=== PATIENT | male | born 1955 | race Caucasian/White ===

== ENCOUNTER 2019-05-14 12:45 | Outpatient (RCR) | payer MEDICARE, BC, SELFPAY | END 2019-05-14 12:50 | disposition home or self-care (01) | LOC: PT 12:45 | PROVIDERS: PCP Family Medicine; Referring Provider Family Medicine; Visit Provider Family Medicine | DX: S16.1XXA Strain of muscle, fascia and tendon at neck level, initial encounter (principal); M54.2 Cervicalgia | CPT/HCPCS: 97010; 97014; 97035; 97110; 97163; G0283 ==

== ENCOUNTER 2020-05-08 18:46 | Emergency (ER) | payer MEDICARE, BC, SELFPAY ==
[2020-05-08 19:07] VITALS: BP 124/65; PULSE 92; RESP 15; TEMP 36.5; O2SAT 95; BMI 47.2
--- NOTE | 2020-05-08 19:13 | HMH.EDGENADL ---
ED Disposition Clinical Impression: Right flank pain Disposition: Home, Self-Care Condition on Discharge: Good Instructions: DI for Low Back Pain Additional Instructions: Follow-up with primary care doctor, call tomorrow to arrange follow-up Referrals: Catarino Ryan [Primary Care Provider] - - Critical Care Critical Care Time: No Attestation: On , the high probability of a clinically significant, sudden or life threatening deterioration of the following system(s) required my full and direct attention, intervention and personal management. The time I documented below is in addition to time spent performing reported procedures but includes the following listed in this critical care notation. Medical Decision Making - Silvino Inquiry Pt receiving controlled substance: No Vital Signs: 05/08/20 19:07 Temperature 97.7 F Temperature Source Oral Pulse Rate [Right Brachial] 92 H Respiratory Rate 15 Blood Pressure [Right Arm] 124/65 Blood Pressure Mean [Right Arm] 84 Blood Pressure Source [Right Arm] Automatic Cuff Blood Pressure Position [Right Arm] Sitting 02 Sat by Pulse Oximetry 95 Oxygen Delivery Method Room Air - Lab Data Lab Results 05/08/20 19:15: WBC 10.9 H, RBC 5.23, Hgb 15.9, Hct 49.0, MCV 93.6, MCH 30.4, MCHC 32.5, RDW 14.5, Plt Count 235, MPV 8.2, Neut % (Auto) 66.9, Lymph % (Auto) 23.4, [place] % (Auto) 5.4, Eos % (Auto) 3.7, Baso % (Auto) 0.5, Neut # (Auto) 7.3, Lymph # (Auto) 2.6, [place] # (Auto) 0.6, Eos # (Auto) 0.4, Baso # (Auto) 0.1 05/08/20 19:15: Sodium 139, Potassium 4.8, Chloride 103, Carbon Dioxide 27, Anion Gap 13.8, BUN 31 H, Creatinine 1.20, Estimated Creat Clear 61, Estimated GFR 61, Est GFR ( Amer) 73, Glucose 203 H, Calcium 9.6, Total Bilirubin 0.6, AST 40, ALT 39, Alkaline Phosphatase 60, Total Protein 7.6, Albumin 4.6, Globulin 3.0, Albumin/Globulin Ratio 1.5, Amylase 68, Lipase 51 05/08/20 19:20: Urine Color Yellow, Urine Appearance Clear, Urine pH 5.0, Ur Specific [place] >= 1.030, Urine Protein 2+, Urine Glucose (UA) Negative, Urine Ketones Trace, Urine Blood Negative, Urine Nitrate Negative, Urine Bilirubin Negative, Urine Urobilinogen 0.2, Ur Leukocyte Esterase Negative, Urine RBC None, Urine WBC Occasional, Ur Squamous Epith Cells Occasional, Amorphous Sediment 1+, Urine Bacteria None, Urine Mucus 1+ Result diagrams: 05/08/20 19:15 05/08/20 19:15 Orders (Tests/Meds): ED MEDICATIONS Generic Name Dose Route Start Last Admin Trade Name Freq PRN Reason Stop Dose Admin Sodium Chloride 1,000 mls @ 999 mls/hr 05/08/20 19:15 05/08/20 19:41 Sod Chlor 0.9% 1000ml Bag IV 05/08/20 20:15 999 mls/hr .Q1H1M ROSALBA Administration ORDERS Category Date Time Status CT abdomen pelvis wo con Stat Cat Scan 05/08/20 19:21 Taken - CT Data CT Scan: Abdomen, Pelvis Time Received: 20:20 ([facility] fax) Findings Narrative: No acute findings in the abdomen and pelvis Medical Decision Narrative: Pain is likely musculoskeletal, discussed with patient General Adult HPI - General Chief complaint: Back Pain/Injury Stated complaint: Back Pain Time Seen by Provider: 05/08/20 19:13 Mode of Arrival: Family Vehicle Limitations: No Limitations Description of Symptoms (Recalled from ER Triage Doc. by RN): right flank pain x 2 weeks; wants to rule out kidney involvement. states has a weak stream and while this is sometimes normal, feels like its been going on too to be normal - History of Present Illness HPI narrative: Right posterior flank pain for 2 weeks. Worsened with movement. No injury recalled. States that he recently retired and has been laying in bed a lot and he wonders whether that has aggravated his back. However, he is concerned about possible kidney pain. No history of kidney stones. He has a chronic urinary hesitancy, which is unchanged. No hematuria noted. No fever. No vomiting. No abdominal pain. He is using Lidoderm patches for relief. - Related Data
--- NOTE | 2020-05-08 19:21 | CT_ITS ---
PROCEDURE: CT ABDOMEN PELVIS WO CON CLINICAL INDICATION: right flank pain Abdominal pain, right flank pain COMPARISON: CT ABDPELWO CT abdomen pelvis wo con from 05/29/2018 TECHNIQUE: Axial images obtained with sagittal and coronal reformats. All CT scans at the facility use one or more dose reduction, viz: automated exposure control, ma/kV adjustment per patient size (including targeted exams where dose is matched to indication, i.e. head), or iterative reconstruction technique. FINDINGS: LOWER THORAX: No acute finding ABDOMEN & PELVIS: The liver, spleen, adrenal glands, pancreas, and right kidney have an unremarkable appearance. There is atrophic change of the left kidney. No renal or ureteral calculi. There is some minimal stranding of the right perinephric renal fat which is nonspecific. There is a small umbilical hernia containing fat. No evidence of appendicitis, intestinal obstruction, or free air. There is colonic diverticulosis but no evidence of diverticulitis. There is a small area of dense calcification in the left lower quadrant and may be due to an area of fat necrosis. No acute bony anomaly. IMPRESSION: 1. No acute finding. 2. Atrophy of the left kidney. 3. Colonic diverticulosis without diverticulitis Dictated by: Mahesh Lake MD 05/09/2020 06:21 Mahesh Lake MD in [place] 05/09/2020 06:21
[2020-05-08 19:25] LABS: Basophils # 0.1 K/mm3 (0-0.2); Basophils % 0.5 % (0.1-2.0); Eosinophils # 0.4 K/mm3 (0.0-0.4); Eosinophils % 3.7 % (0.1-12.0); Hemoglobin 15.9 g/dL (14.1-18.0); Lymphocytes # 2.6 K/mm3 (0.7-4.5); Lymphocytes % 23.4 % (10-50); Mean Corpuscular HGB Conc 32.5 g/dL (31.8-35.4); Mean Corpuscular Hemoglobin 30.4 pg (27.0-31.2); Mean Corpuscular Volume 93.6 fl (80-94); Mean Platelet Volume 8.2 fl (7.4-10.4); Monocytes # 0.6 K/mm3 (0.1-1.0); Monocytes % 5.4 % (1.7-9.3); Neutrophils # 7.3 K/mm3 (1.8-7.8); Neutrophils % 66.9 % (37.0-80.0); Platelet Count 235 K/mm3 (142-424); Red Blood Count 5.23 M/mm3 (4.60-6.20); Red Cell Distribution Width 14.5 % (11.5-17.5); White Blood Count 10.9 K/mm3 (4.8-10.8)
[2020-05-08 19:29] LABS: Chloride 103 mmol/L (98-107); Potassium 4.8 mmoL/L (3.5-5.1); Sodium 139 mmol/L (136-145)
[2020-05-08 19:31] LABS: Amylase 68 U/L (30-110); Blood Urea Nitrogen 31 mg/dl (9-20); Creatinine Clearance Estimated 61 mL/min (50-200); Estimated Glomerular Filt Rate 61 ml/min (>60); GFR (African American) 73 ML/MIN (>60)
[2020-05-08 19:32] LABS: Alanine Aminotransferase 39 U/L (12-78); Albumin Level 4.6 g/dl (3.5-5.0); Albumin/Globulin Ratio 1.5 (1.1-1.8); Alkaline Phosphatase 60 U/L (38-126); Anion Gap 13.8 mEq/L (5-15); Aspartate Amino Transferase 40 U/L (17-59); Bilirubin,Total 0.6 mg/dl (0.2-1.3); Calcium 9.6 mg/dl (8.4-10.2); Carbon Dioxide 27 mmol/L (22.0-30.0); Glucose 203 mg/dl (74-100); Lipase 51 U/L (23-300); Total Protein,Serum 7.6 g/dl (6.3-8.2)
[2020-05-08 19:36] LABS: Microscopic, Urine URINE MICROSCOPIC (MICROSCOPIC)
[2020-05-08 19:37] LABS: Appearance,Urine CLEAR (Clear); Bilirubin,Urine Negative (Negative); Blood, Urine Negative (Negative); Color,Urine YELLOW (Yellow); Glucose,Urine (UA) Negative (Negative); Ketones,Urine TRACE (Negative); Leukocyte Esterase,Urine Negative (Negative); Nitrate,Urine Negative (Negative); Protein,Urine 2+ (Negative); Specific Gravity, Urine >= 1.030 (1.005-1.030); Urobilinogen,Urine 0.2 EU/dl (0.2)
[2020-05-08 19:43] LABS: Amorphous Sediment,Urine 1+ /lpf; Mucus,Urine 1+ /lpf; Squamous Epithelial Cell,Urine Occasional #/hpf (0-5); WBC,Urine Occasional #/hpf (0-3)
[2020-05-08 20:22] VITALS: BP 145/85; PULSE 87; RESP 16; TEMP 36.7; O2SAT 98
== END 2020-05-08 20:28 | disposition home or self-care (01) ==
PROVIDERS: Emergency Provider Emergency Medicine; PCP Family Medicine
DX: R10.11 Right upper quadrant pain (principal); R39.11 Hesitancy of micturition; E10.9 Type 1 diabetes mellitus without complications; J45.909 Unspecified asthma, uncomplicated; Z79.899 Other long term (current) drug therapy; Z88.2 Allergy status to sulfonamides; Z88.6 Allergy status to analgesic agent
CPT/HCPCS: 74176; 80053; 81001; 82150; 83690; 85025; 96365; 99283

== ENCOUNTER 2020-08-19 16:35 | Emergency (ER) | payer MEDICARE, BC, SELFPAY ==
--- NOTE | 2020-08-19 16:46 | XR_ITS ---
PROCEDURE: XR FOOT RT MIN 3V CLINICAL INDICATION: fall Pain following injury COMPARISON: CR FTR3 FOOT-RT-3 VIEWS from 01/23/2016 FINDINGS: No fracture or dislocation. No lytic or blastic change. There is normal mineralization. There are osteoarthritic changes at the navicular cuneiform and tarsal metatarsal junction. There is a small calcaneal spur. Other findings:None. IMPRESSION: No acute findings. Dictated by: Mahesh Lake MD 08/19/2020 17:18 Mahesh Lake MD in [place] 08/19/2020 17:18
--- NOTE | 2020-08-19 16:46 | XR_ITS ---
PROCEDURE: XR KNEE LT 3V CLINICAL INDICATION: fall Posttraumatic pain COMPARISON: CR KNEE3R KNEE-3 VIEWS-RT from 10/04/2013 FINDINGS: No fracture or dislocation. No lytic or blastic change. There is normal mineralization. Sage-ib-tamthnow osteoarthritic changes are present involving all 3 compartments. Other findings:Calcific density is present at the popliteal region and is more dorsal than what 1 would expect for a fabella and could be due to a loose body within a Weathers's cyst. IMPRESSION: Osteoarthritis, no acute fracture Possible loose body within a Weathers's cyst Dictated by: Mahesh Lake MD 08/19/2020 17:17 Mahesh Lake MD in [place] 08/19/2020 17:17
--- NOTE | 2020-08-19 16:48 | XR_ITS ---
PROCEDURE: XR HAND RT MIN 3V CLINICAL INDICATION: fall Posttraumatic pain COMPARISON: No exams were available for comparison FINDINGS: No fracture or dislocation. No lytic or blastic change. There is normal mineralization. The joint spaces are well-preserved. No significant degenerative/arthritic changes. No erosive changes evident. Other findings:Well-circumscribed calcific density is present at the scapho trapezium joint laterally and may represent sequela from old injury. IMPRESSION: No acute findings. Dictated by: Mahesh Lake MD 08/19/2020 17:20 Mahesh Lake MD in [place] 08/19/2020 17:20
[2020-08-19 17:15] VITALS: BP 163/86; PULSE 86; RESP 16; TEMP 36.7; O2SAT 98; BMI 53.6
--- NOTE | 2020-08-19 17:26 | HMH.EDUTC ---
[facility] [place] Disposition Clinical Impression: Fall Qualifiers: Encounter type: initial encounter Qualified Code(s): W19.XXXA - Unspecified fall, initial encounter Disposition: Home, Self-Care Condition on Discharge: Good Instructions: DI for Knee Sprain, DI for Finger Sprain, How To Perform RICE (Rest, Ice, Compress, Elevate), DI for Foot Sprain Additional Instructions: *weight bearing as tolerated *RICE, Rest the extremity, Ice 15-20 minutes 3-4 times daily, Compress- wear the thomas wrap as discussed as much as possible to help reduce swelling and pain, Elevate the extremity when at rest *Thomas wrap is for support and help control swelling, use it except in the shower. Be sure that is not to tight but not to loose either *Elevate when resting *Ibuprofen every 6-8 hours as needed for pain an inflammation. If need something more can take Tylenol in between doses of Ibuprofen to help Immediately follow up with your family doctor for new or worsening of symptoms, or no noticeable improvement over the next 3-5 days Follow up with your Family Doctor if no improvement or any worsening of symptoms Referrals: Catarino Ryan [Primary Care Provider] - As needed Time of Disposition: 17:39 Medical Decision Making - Silvino Inquiry Pt receiving controlled substance: No Silvino was queried for this patient: No Vital Signs: 08/19/20 17:15 08/19/20 17:46 Temperature 98.1 F 98 F Temperature Source Oral Pulse Rate 81 Pulse Rate [Right] 86 Respiratory Rate 16 16 Blood Pressure 159/83 H Blood Pressure [Right Arm] 163/86 H Blood Pressure Mean [Right Arm] 111 Blood Pressure Source [Right Arm] Automatic Cuff Blood Pressure Position Sitting Blood Pressure Position [Right Arm] Sitting 02 Sat by Pulse Oximetry 98 Oxygen Delivery Method Nasal Cannula Oxygen Flow Rate (LPM) 2 - Radiology Data #1 Image(s): Knee Image Reviewed: Yes I have reviewed radiologist's interpretation IMPRESSION: Osteoarthritis, no acute fracture #2 Image(s): Foot/Toes Image Reviewed: Yes I have reviewed radiologist's interpretation No acute findings. #3 Image(s): Hand Image Reviewed: Yes I have reviewed radiologist's interpretation No acute findings. [facility] [place] HPI - General Stated complaint: AO [id number] fell injured L Knee,R Hand,foot Time Seen by Provider: 08/19/20 17:26 Mode of Arrival: Ambulatory Source of Information: Patient Limitations: No Limitations Description of Symptoms (Recalled from Triage Doc. by RN): pt was sitting up on bedside and fell asleep. he has injured his R knee, R hand, and L foot. HEENT Symptoms (Recalled from RN notes): No Resp Symptoms (Recalled from RN notes): No Skin Symptoms (Recalled from RN notes): No MS Symptoms (Recalled from RN notes): Yes (R KNEE AND R HAND PAIN. L FOOT PAIN.) Functional Status (Recalled from RN notes): NA - History of Present Illness Provider Complaint: Patient states that he got up and went to the bathroom around 7am this morning and come back and sit on the edge of the bed States that he fell back to sleep and fell off the side of the bed and landed on his left knee and right foot and right hand State that ever since he has been having pain and bruising to the left knee and wanted to get it checked - Related Data Home Medications Medication Instructions Recorded Confirmed Fluoxetine HCl [Prozac 20mg 60 mg PO DAILY 04/29/19 06/05/19 Capsule] Gabapentin 600 mg PO TID 04/29/19 06/05/19 Insulin Aspart [Novolog] 20 unit SQ TID 04/29/19 06/05/19 Insulin Detemir [Levemir 100 20 unit SQ DAILY 04/29/19 06/05/19 units/mL 10mL vial] Losartan Potassium [Cozaar 100mg 100 mg PO DAILY 04/29/19 06/05/19 Tablets] diphenhydrAMINE HCL [Benadryl 25mg 25 mg PO HS 04/29/19 06/05/19 Capsule] Allergies Allergy/AdvReac Type Severity Reaction Status Date / Time aspirin [ASPIRIN] Allergy Intermediate I-HIVES Verified 08/19/20 16:50 NSAIDS (Non-Steroidal Allergy Intermediate
[2020-08-19 17:46] VITALS: BP 159/83; PULSE 81; RESP 16; TEMP 36.6
== END 2020-08-19 17:46 | disposition home or self-care (01) ==
PROVIDERS: Emergency Provider Nurse Practitioner; PCP Family Medicine
DX: S80.02XA Contusion of left knee, initial encounter (principal); S60.221A Contusion of right hand, initial encounter; S90.31XA Contusion of right foot, initial encounter; W06.XXXA Fall from bed, initial encounter; Y92.013 Bedroom of single-family (private) house as the place of occurrence of the external cause; E10.9 Type 1 diabetes mellitus without complications; I10 Essential (primary) hypertension; J45.909 Unspecified asthma, uncomplicated; Z79.899 Other long term (current) drug therapy; Z79.4 Long term (current) use of insulin; Z88.2 Allergy status to sulfonamides; Z88.6 Allergy status to analgesic agent
CPT/HCPCS: 73130; 73562; 73630; 99202; G0463

== ENCOUNTER 2020-09-05 14:00 | Outpatient (RCR) | payer MEDICARE, BC, SELFPAY | END 2020-09-05 14:05 | disposition home or self-care (01) | LOC: PT 14:00 | PROVIDERS: PCP Family Medicine; Visit Provider Family Medicine | DX: M54.5 Low back pain (principal) | CPT/HCPCS: 97014; 97110; 97140; 97163; G0283 ==

== ENCOUNTER 2020-09-24 11:28 | Emergency (ER) | payer MEDICARE, BC, SELFPAY ==
[2020-09-24 11:30] VITALS: BP 137/66; PULSE 90; RESP 18; TEMP 36.8; O2SAT 96; BMI 52.0
--- NOTE | 2020-09-24 11:36 | XR_ITS ---
PROCEDURE: XR SHOULDER LT MIN 2V CLINICAL INDICATION: PAIN COMPARISON: CR SHOU3R QSB-[id number]-SE-UNI-3 VIEWS from 08/24/2015 FINDINGS: No fracture or dislocation. No lytic or blastic change. There is normal mineralization. There are mild osteoarthritic changes of the acromioclavicular and glenohumeral joint Other findings:No significant subacromial stenosis. IMPRESSION: Mild osteoarthritis Dictated by: Mahesh Lake MD 09/24/2020 12:20 Mahesh Lake MD in [place] 09/24/2020 12:20
--- NOTE | 2020-09-24 12:00 | HMH.EDUTC ---
[facility] [place] Disposition Clinical Impression: Left shoulder strain Qualifiers: Encounter type: initial encounter Qualified Code(s): S46.912A - Strain of unspecified muscle, fascia and tendon at shoulder and upper arm level, left arm, initial encounter Disposition: Home, Self-Care Condition on Discharge: Good Instructions: DI for Shoulder Pain Additional Instructions: Do not lift anything heavy with arm *RICE, Rest the extremity, Ice 15-20 minutes 3-4 times daily, Compress- wear the huseyin wrap as discussed as much as possible to help reduce swelling and pain, Elevate the extremity when at rest *Elevate when resting Sling as advised in the [facility] *Ibuprofen every 6-8 hours as needed for pain an inflammation if you can take them if you are allergic or have been told by your Family Doctor not to take them you can take Tylenol or use over the counter patches or muscle rubs Immediately follow up with your family doctor for new or worsening of symptoms, or no noticeable improvement over the next 3-5 days Follow up with Orthopedics if needed Straight to ER if any life threatening symptoms Referrals: Catarino Ryan [Primary Care Provider] - As needed (Keep appointment as scheduled) Rashaun Martinez MD [Staff Physician] - As needed Time of Disposition: 12:23 Medical Decision Making - Silvino Inquiry Pt receiving controlled substance: No Silvino was queried for this patient: No Vital Signs: 09/24/20 11:30 Temperature 98.2 F Temperature Source Oral Pulse Rate [Right Brachial] 90 Respiratory Rate 18 Blood Pressure [Right Arm] 137/66 Blood Pressure Mean [Right Arm] 89 Blood Pressure Source [Right Arm] Automatic Cuff Blood Pressure Position [Right Arm] Sitting 02 Sat by Pulse Oximetry 96 Oxygen Delivery Method Room Air Orders (Tests/Meds): ORDERS Category Date Time Status XR shoulder LT min 2V Stat Exams 09/24/20 11:36 Taken - Radiology Data #1 Image(s): Shoulder Image Reviewed: Yes I reviewed the patient's radiology image Preliminary Findings: No Fracture Seen [facility] [place] HPI - General Stated complaint: AO [id number] Time Seen by Provider: 09/24/20 12:00 Mode of Arrival: Ambulatory Source of Information: Patient Limitations: No Limitations Description of Symptoms (Recalled from Triage Doc. by RN): INJURY TO LEFT SHOULDER. STATES HE WENT TO PULL BLANKETS UP AND PULLED SOMETHING IN HIS LEFT SHOULDER HEENT Symptoms (Recalled from RN notes): No Resp Symptoms (Recalled from RN notes): No Skin Symptoms (Recalled from RN notes): No MS Symptoms (Recalled from RN notes): Yes Functional Status (Recalled from RN notes): WNL - History of Present Illness Provider Complaint: Patient state that last night he was reaching back to pull covers down over him when he felt something pull in his left shoulder area States that ever since he has been having pain in his left shoulder when he tries to raise it so he came in to get it checked - Related Data Home Medications Medication Instructions Recorded Confirmed Fluoxetine HCl [Prozac 20mg 60 mg PO DAILY 04/29/19 06/05/19 Capsule] Gabapentin 600 mg PO TID 04/29/19 06/05/19 Insulin Aspart [Novolog] 20 unit SQ TID 04/29/19 06/05/19 Insulin Detemir [Levemir 100 20 unit SQ DAILY 04/29/19 06/05/19 units/mL 10mL vial] Losartan Potassium [Cozaar 100mg 100 mg PO DAILY 04/29/19 06/05/19 Tablets] diphenhydrAMINE HCL [Benadryl 25mg 25 mg PO HS 04/29/19 06/05/19 Capsule] Allergies Allergy/AdvReac Type Severity Reaction Status Date / Time aspirin [ASPIRIN] Allergy Intermediate I-HIVES Verified 08/19/20 16:50 NSAIDS (Non-Steroidal Allergy Intermediate I-RASH Verified 08/19/20 16:50 Anti-Inflamma [NSAIDS (NON-STEROIDAL ANTI-INFLAMMA] Sulfa (Sulfonamide Allergy Intermediate I-RASH Verified 08/19/20 16:50 Antibiotics) [SULFA (SULFONAMIDE ANTIBIOTICS)] - Worker's Comp Is this a Worker's Comp case?: No [facility] History - Hepatitis A Screen Drug
[2020-09-24 12:38] VITALS: BP 137/66; PULSE 90; RESP 18; TEMP 36.8; O2SAT 96
== END 2020-09-24 12:40 | disposition home or self-care (01) ==
PROVIDERS: Emergency Provider Nurse Practitioner; PCP Family Medicine
DX: S46.912A Strain of unspecified muscle, fascia and tendon at shoulder and upper arm level, left arm, initial encounter (principal); X50.9XXA Other and unspecified overexertion or strenuous movements or postures, initial encounter; Y92.013 Bedroom of single-family (private) house as the place of occurrence of the external cause; J45.909 Unspecified asthma, uncomplicated; E10.9 Type 1 diabetes mellitus without complications; Z79.4 Long term (current) use of insulin; Z88.2 Allergy status to sulfonamides; Z79.899 Other long term (current) drug therapy
CPT/HCPCS: G0463; 73030; 99202

== ENCOUNTER 2021-01-21 16:00 | Outpatient (RCR) | payer MEDICARE, BC, SELFPAY | END 2021-01-21 16:05 | disposition home or self-care (01) | LOC: PT 16:00 | PROVIDERS: PCP Family Medicine; Visit Provider Orthopaedic Surgery | DX: M75.122 Complete rotator cuff tear or rupture of left shoulder, not specified as traumatic (principal) | CPT/HCPCS: 97010; 97014; 97110; 97140; 97163; 97164; G0283 ==

== ENCOUNTER 2021-01-30 15:55 | Emergency (ER) | payer MEDICARE, BC, SELFPAY ==
[2021-01-30 16:00] VITALS: BP 146/84; PULSE 87; RESP 24; TEMP 36.9; O2SAT 98; BMI 54.5
--- NOTE | 2021-01-30 16:22 | HMH.EDUTC ---
[facility] [place] Disposition Clinical Impression: Exposure to COVID-19 virus Disposition: Home, Self-Care Condition on Discharge: Good Instructions: DI for COVID-19 (Suspected or Confirmed ), Coronavirus Disease 2019, Preventing the Spread of Coronavirus Discharge Instructions Additional Instructions: *Monitor Temp, Over the counter Motrin or Tylenol as directed/as needed Tylenol every 4 hours and Motrin every 6 hours (as long as your family doctor has told you that you can take it) for fever or pain. and straight to ER if unable to lower temp less than 101.0 after medication given *Warm salt water gargles may help to soothe the throat *Throat Lozenges *Warm fluids like tea with honey may help to soothe the throat *Sleep elevated *Humidifier/Vaporizer Follow up IMMEDIATELY for new or worsening symptoms or no Noticeable improvement over the next 48-72 hours. 911 for difficulty breathing or swallowing You were tested for today for COVID19 your test result should be back in the next 24-48 hours, you may call to the [facility] to see if your test results are back in the next 48 hours [phone] [facility] hours are 9am-9pm You was given a handout with instructions for Self Quarantine and Self isolation for while you wait on test results and what to do if they are positive If you are positive the Health Dept will be contacting you also Make sure to take your Vitamins Vit. C Vit D and Zinc if you can take them Prescriptions: guaiFENesin [Mucinex 600mg tablet] 1 - 2 tab PO Q12HP PRN #[id number] PRN Reason: Congestion Transmission Status: Pending to [facility] Referrals: Catarino Ryan [Primary Care Provider] - As needed Time of Disposition: 16:40 Medical Decision Making - Silvino Inquiry Pt receiving controlled substance: No Silvino was queried for this patient: No Vital Signs: 01/30/21 16:00 Temperature 98.4 F Temperature Source Oral Pulse Rate [Right Brachial] 87 Respiratory Rate 24 Blood Pressure [Right Arm] 146/84 H Blood Pressure Mean [Right Arm] 104 Blood Pressure Source [Right Arm] Automatic Cuff Blood Pressure Position [Right Arm] Sitting 02 Sat by Pulse Oximetry 98 Oxygen Delivery Method Room Air Orders (Tests/Meds): ORDERS Category Date Time Status Covid-19 Nasal PCR ([facility]) Routine Lab 01/30/21 16:01 Ordered [facility] HPI - General Stated complaint: covid test, cough, SOB, PEDERSEN Time Seen by Provider: 01/30/21 16:23 Mode of Arrival: Ambulatory Source of Information: Patient Limitations: No Limitations Description of Symptoms (Recalled from Triage Doc. by RN): PATIENT C/O COUGH, SOA, CHEST CONGESTION X 3 DAYS. RECENTLY EXPOSED TO COVID HEENT Symptoms (Recalled from RN notes): No Resp Symptoms (Recalled from RN notes): Yes Skin Symptoms (Recalled from RN notes): No MS Symptoms (Recalled from RN notes): No Functional Status (Recalled from RN notes): WNL - History of Present Illness Provider Complaint: Patient states that he has a history of COPD and breathing problems and has SOA at times normally and wears O2 at home States that his daughter and grandchild just tested positive for COVID States that he has had a little cough but has that normally and was concerned when he started having some drainage and worried it would move into his chest States wants to be tested COVID because he lives with them - Related Data Home Medications Medication Instructions Recorded Confirmed Fluoxetine HCl [Prozac 20mg 60 mg PO DAILY 04/29/19 06/05/19 Capsule] Gabapentin 600 mg PO TID 04/29/19 06/05/19 Insulin Aspart [Novolog] 20 unit SQ TID 04/29/19 06/05/19 Insulin Detemir [Levemir 100 20 unit SQ DAILY 04/29/19 06/05/19 units/mL 10mL vial] Losartan Potassium [Cozaar 100mg 100 mg PO DAILY 04/29/19 06/05/19 Tablets] diphenhydrAMINE HCL [Benadryl 25mg 25 mg PO HS 04/29/19 06/05/19 Capsule] Previous Rx's Medication Instructions Recorded guaiFENesin [Mucinex 600mg tablet] 1 - 2 tab PO Q12HP P
[2021-01-30 16:44] VITALS: BP 146/84; PULSE 87; RESP 24; TEMP 36.9; O2SAT 98
--- NOTE | 2021-01-30 21:32 | PC.NURSE ---
PT NOTIFIED OF POSITIVE COVID TEST RESULTS
== END 2021-01-30 16:47 | disposition home or self-care (01) ==
PROVIDERS: Emergency Provider Nurse Practitioner; PCP Family Medicine
DX: U07.1 COVID-19 (principal); E10.9 Type 1 diabetes mellitus without complications; J44.9 Chronic obstructive pulmonary disease, unspecified
CPT/HCPCS: G0463; 99202; U0003

== ENCOUNTER 2021-02-04 08:19 | Emergency (ER) | payer MEDICARE, BC, SELFPAY ==
[2021-02-04 08:20] VITALS: BP 159/64; PULSE 90; RESP 18; TEMP 37.3; O2SAT 94; BMI 54.5
--- NOTE | 2021-02-04 08:47 | XR_ITS ---
PROCEDURE: XR CHEST PORTABLE CLINICAL HISTORY: soa Shortness of air, Covid19 positive COMPARISON: CR [id number] XR ribs RT min 3V w CXR1V from 04/30/2018 CR CXR2V XR chest 2V from 05/29/2018 CR XR CHEST 2V from 06/05/2019 FINDINGS: The cardiomediastinal silhouette and pulmonary vascularity are within normal limits. The lungs are clear without infiltrates, suspicious nodules, or pleural effusions. No acute bony abnormalities. IMPRESSION: No acute findings. Dictated by: Mahesh Lake MD 02/04/2021 11:14 Mahesh Lake MD in [place] 02/04/2021 11:14
[2021-02-04 09:16] LABS: Chloride 105 mmol/L (98-107)
[2021-02-04 09:17] LABS: Potassium 3.8 mmoL/L (3.5-5.1); Sodium 142 mmol/L (136-145)
[2021-02-04 09:19] LABS: Alanine Aminotransferase 27 U/L (12-78); Alkaline Phosphatase 78 U/L (38-126); Aspartate Amino Transferase 41 U/L (17-59); Bilirubin,Total 0.5 mg/dl (0.2-1.3); Blood Urea Nitrogen 14 mg/dl (9-20); Creatinine Clearance Estimated 75 mL/min (50-200); Estimated Glomerular Filt Rate 97 ml/min (>60); GFR (African American) 117 ML/MIN (>60)
[2021-02-04 09:20] LABS: Albumin Level 4.4 g/dl (3.5-5.0); Albumin/Globulin Ratio 1.3 (1.1-1.8); Anion Gap 12.8 mEq/L (5-15); Calcium 8.6 mg/dl (8.4-10.2); Carbon Dioxide 28 mmol/L (22.0-30.0); Globulin 3.3 g/dL (1.3-3.2); Glucose 191 mg/dl (74-100); Total Protein,Serum 7.7 g/dl (6.3-8.2)
[2021-02-04 09:21] LABS: Magnesium 1.6 mg/dl (1.6-2.3)
[2021-02-04 09:24] LABS: D-Dimer 0.87 ug/mL (0.0-0.5)
[2021-02-04 09:28] LABS: Basophils % 0.3 % (0.1-2.0); Eosinophils # 0.2 K/mm3 (0.0-0.4); Eosinophils % 2.8 % (0.1-12.0); Hematocrit 37.6 % (42.0-52.0); Hemoglobin 12.1 g/dL (14.1-18.0); Lymphocytes % 16.9 % (10-50); Mean Corpuscular HGB Conc 32.1 g/dL (31.8-35.4); Mean Corpuscular Hemoglobin 27.3 pg (27.0-31.2); Mean Platelet Volume 7.9 fl (7.4-10.4); Monocytes # 0.5 K/mm3 (0.1-1.0); Monocytes % 7.7 % (1.7-9.3); Neutrophils # 4.3 K/mm3 (1.8-7.8); Neutrophils % 72.3 % (37.0-80.0); Platelet Count 195 K/mm3 (142-424); Red Blood Count 4.42 M/mm3 (4.60-6.20); Red Cell Distribution Width 15.7 % (11.5-17.5); White Blood Count 5.9 K/mm3 (4.8-10.8)
[2021-02-04 09:30] LABS: NT Pro Brain Natriuretic Pep. 55.9 pg/mL (0-125)
--- NOTE | 2021-02-04 09:31 | HMH.EDGENADL ---
ED Disposition Clinical Impression: COVID-19 Disposition: Home, Self-Care Condition on Discharge: Good Instructions: DI for COVID-19 (Suspected or Confirmed ) Additional Instructions: Return per instructions for REGEN-CoV infusion. Follow-up with your primary care physician within the next few days. Observe quarantine guidelines as recommended by the health department. Return the emergency department for worsening difficulty breathing need for higher oxygen levels or any other concerns within the next 8 hours Referrals: Catarino Ryan [Primary Care Provider] - - Critical Care Critical Care Time: No Attestation: On 02/04/21, the high probability of a clinically significant, sudden or life threatening deterioration of the following system(s) required my full and direct attention, intervention and personal management. The time I documented below is in addition to time spent performing reported procedures but includes the following listed in this critical care notation. Medical Decision Making - Medical Records Medical records reviewed: Yes: I reviewed the patient's medical records. - Silvino Inquiry Pt receiving controlled substance: No Vital Signs: 02/04/21 08:20 Temperature 99.1 F Temperature Source Oral Pulse Rate [Right] 90 Respiratory Rate 18 Blood Pressure [Right Arm] 159/64 H Blood Pressure Mean [Right Arm] 95 02 Sat by Pulse Oximetry 94 L Oxygen Delivery Method Nasal Cannula Oxygen Flow Rate (LPM) 2.5 - Lab Data Lab Results 02/04/21 08:46: VBG pH 7.43 H, VBG pCO2 35.2, VBG pO2 153.7 H, VBG HCO3 23.1, VBG Total CO2 24.1, VBG O2 Saturation 99.3 H, VBG Base Excess -1.2 02/04/21 08:53: D-Dimer 0.87 H 02/04/21 08:53: Magnesium 1.6 02/04/21 08:53: WBC 5.9, RBC 4.42 L, Hgb 12.1 L, Hct 37.6 L, MCV 85.0, MCH 27.3, MCHC 32.1, RDW 15.7, Plt Count 195, MPV 7.9, Neut % (Auto) 72.3, Lymph % (Auto) 16.9, [place] % (Auto) 7.7, Eos % (Auto) 2.8, Baso % (Auto) 0.3, Neut # (Auto) 4.3, Lymph # (Auto) 1.0, [place] # (Auto) 0.5, Eos # (Auto) 0.2, Baso # (Auto) 0.0 02/04/21 08:53: Sodium 142, Potassium 3.8, Chloride 105, Carbon Dioxide 28, Anion Gap 12.8, BUN 14, Creatinine 0.80, Estimated Creat Clear 75, Estimated GFR 97, Est GFR ( Amer) 117, Glucose 191 H, Calcium 8.6, Total Bilirubin 0.5, AST 41, ALT 27, Alkaline Phosphatase 78, NT-Pro-B Natriuret Pep 55.9, Total Protein 7.7, Albumin 4.4, Globulin 3.3 H, Albumin/Globulin Ratio 1.3 Result diagrams: 02/04/21 08:53 02/04/21 08:53 Orders (Tests/Meds): ORDERS Category Date Time Status Chest XR -- portable [XR chest portable] Stat Exams 02/04/21 08:47 Taken Medical Decision Narrative: 65-year-old male with worsening symptoms of COVID-19. He is stable at this time in no acute distress sitting comfortably in his wheelchair he is in the room with his in room 1. Chest x-ray and labs obtained for prognosis. Atypical symptoms for pulmonary embolism, D-dimer negative per years criteria. Laboratory evaluation otherwise nonactionable. He is stable on his home oxygen at this time. Discussed treatment options for him and plan to refer for outpatient REGEN-CoV in the setting of significant risk factors for COVID-19 without worsening hypoxia. He was agreeable to this and will return if there are any issues General Adult HPI - General Chief complaint: Nausea/Vomiting/Diarrhea Stated complaint: covid positive, symptoms worsening Time Seen by Provider: 02/04/21 08:25 Mode of Arrival: Family Vehicle Limitations: No Limitations Description of Symptoms (Recalled from ER Triage Doc. by RN): Patient c/o nausea, vomitting, diarrhea, headache and general mylagia for the last week. Patient reports he was confirmed COVID positive on 01/30/21. Patient reports his has same s/s. Patient denies any chest pain. Patient reports he is O2 dependant. - History of Present Illness HPI narrative: 65-year-old male with history of COPD hypertension diabetes presents with worsenin
--- NOTE | 2021-02-04 09:34 | ECG_ITS ---
APPROVED REPORT Exam: Resting ECG HR:84 bpm ECG Measurements Heart Rate 84 AXES ND 198 P 20 QRSd 100 QRS -17 QT 394 T 49 QTc 465 Conclusion Normal sinus rhythm Moderate voltage criteria for LVH, may be normal variant Borderline ECG Electronically signed by : Blaise Bundy MD 02/06/2021 12:08:41
[2021-02-04 09:42] LABS: VBG Base Excess -1.2 mmol/L (-2.4-2.3); VBG HCO3 23.1 mmol/L (23-30); VBG Oxygen Saturation 99.3 % (50-70); VBG PCO2 35.2 mmol/L (35-51); VBG PH 7.43 mmol/L (7.31-7.41); VBG PO2 153.7 mmol/L (28-40); VBG Total CO2 24.1 mmol/L (23-27)
[2021-02-04 11:37] VITALS: BP 143/71; PULSE 83; RESP 18; TEMP 37.2; O2SAT 96
== END 2021-02-04 11:35 | disposition home or self-care (01) ==
PROVIDERS: Emergency Provider Emergency Medicine; PCP Family Medicine
DX: U07.1 COVID-19 (principal); E10.9 Type 1 diabetes mellitus without complications; Z79.4 Long term (current) use of insulin; J44.9 Chronic obstructive pulmonary disease, unspecified; I10 Essential (primary) hypertension; Z88.2 Allergy status to sulfonamides; Z79.899 Other long term (current) drug therapy
CPT/HCPCS: 71045; 80053; 82803; 83735; 83880; 85025; 85378; 93005; 99283

== ENCOUNTER 2021-02-04 22:51 | Emergency (ER) | payer MEDICARE, BC, SELFPAY ==
[2021-02-04 22:53] VITALS: BP 157/60; PULSE 88; RESP 26; TEMP 37.7; O2SAT 91; BMI 54.5
--- NOTE | 2021-02-04 23:23 | XR_ITS ---
PROCEDURE INFORMATION: Exam: XR Chest Exam date and time: 02/04/2021 11:23 PM Age: 65 years old Clinical indication: Cough and shortness of breath; Patient HX: Cough, SOA, covid+; Additional info: SOA, covid + TECHNIQUE: Imaging protocol: XR of the chest. Views: 2 views. COMPARISON: CR XR CHEST PORTABLE 02/04/2021 9:39 AM FINDINGS: Airway: Patent Lungs: Bilateral perihilar haziness and streaky-like opacities. Mild segmental bronchial wall thickening. Subtle hazy/ground-glass opacities in the left lung base. Pleural spaces: Unremarkable. No pleural effusion. No pneumothorax. Heart/Mediastinum: The heart is mildly enlarged. Bones/joints: No acute skeletal abnormality or aggressive osseous lesion. IMPRESSION: Mild bilateral perihilar and left basal airspace disease, concerning for atypical pneumonia.
--- NOTE | 2021-02-04 23:31 | ECG_ITS ---
APPROVED REPORT Exam: Resting ECG HR:88 bpm ECG Measurements Heart Rate 88 AXES [place] 164 P 70 QRSd 92 QRS -9 QT 370 T 59 QTc 447 Conclusion Normal sinus rhythm Minimal voltage criteria for LVH, may be normal variant Borderline ECG Electronically signed by : Blaise Bundy MD 02/06/2021 12:06:01
[2021-02-05] VITALS: BP 151/65; PULSE 86; O2SAT 92
[2021-02-05 00:16] LABS: Basophils % 0.2 % (0.1-2.0); Eosinophils # 0.1 K/mm3 (0.0-0.4); Eosinophils % 1.4 % (0.1-12.0); Hemoglobin 12.1 g/dL (14.1-18.0); Lymphocytes % 14.8 % (10-50); Mean Corpuscular HGB Conc 31.9 g/dL (31.8-35.4); Mean Corpuscular Hemoglobin 26.8 pg (27.0-31.2); Mean Corpuscular Volume 84.2 fl (80-94); Mean Platelet Volume 8.6 fl (7.4-10.4); Monocytes # 0.5 K/mm3 (0.1-1.0); Monocytes % 7.3 % (1.7-9.3); Neutrophils # 4.9 K/mm3 (1.8-7.8); Neutrophils % 76.2 % (37.0-80.0); Platelet Count 196 K/mm3 (142-424); Red Blood Count 4.51 M/mm3 (4.60-6.20); Red Cell Distribution Width 15.8 % (11.5-17.5); White Blood Count 6.5 K/mm3 (4.8-10.8)
[2021-02-05 00:27] LABS: Alanine Aminotransferase 26 U/L (12-78); Albumin Level 4.4 g/dl (3.5-5.0); Albumin/Globulin Ratio 1.4 (1.1-1.8); Alkaline Phosphatase 72 U/L (38-126); Anion Gap 13.6 mEq/L (5-15); Aspartate Amino Transferase 39 U/L (17-59); Bilirubin,Total 0.5 mg/dl (0.2-1.3); Blood Urea Nitrogen 15 mg/dl (9-20); Calcium 8.5 mg/dl (8.4-10.2); Carbon Dioxide 27 mmol/L (22.0-30.0); Chloride 104 mmol/L (98-107); Creatinine Clearance Estimated 75 mL/min (50-200); Estimated Glomerular Filt Rate 97 ml/min (>60); GFR (African American) 117 ML/MIN (>60); Globulin 3.2 g/dL (1.3-3.2); Glucose 139 mg/dl (74-100); Lactic Acid 0.8 mmol/L (0.7-2.1); Potassium 3.6 mmoL/L (3.5-5.1); Sodium 141 mmol/L (136-145); Total Protein,Serum 7.6 g/dl (6.3-8.2)
[2021-02-05 00:30] LABS: Microscopic, Urine URINE MICROSCOPIC (MICROSCOPIC)
[2021-02-05 00:31] VITALS: BP 166/65; PULSE 81; O2SAT 88
[2021-02-05 00:32] LABS: C-Reactive Protein 62.8 mg/L (0-4)
--- NOTE | 2021-02-05 00:32 | CT_ITS ---
PROCEDURE INFORMATION: Exam: CTA Chest With Contrast Exam date and time: 02/05/2021 12:32 AM Age: 65 years old Clinical indication: Cough and shortness of breath; Additional info: SOA, covid+ TECHNIQUE: Imaging protocol: Computed tomographic angiography of the chest with contrast. 3D rendering (Not supervised by radiologist): MIP and/or 3D reconstructed images were created by the technologist. Radiation optimization: All CT scans at this facility use at least one of these dose optimization techniques: automated exposure control; mA and/or kV adjustment per patient size (includes targeted exams where dose is matched to clinical indication); or iterative reconstruction. Contrast material: ISOVUE 370; Contrast volume: 70 ml; Contrast route: INTRAVENOUS (IV); COMPARISON: CR XR CHEST 2V 02/04/2021 11:32 PM FINDINGS: Pulmonary arteries: Evaluation of the pulmonary arteries is limited to the segmental arterial level due to poor bolus timing. Aorta: Mild atherosclerotic disease of the aorta. Lungs: Patchy widespread ground-glass opacities. Pleural spaces: Unremarkable. No pneumothorax. No pleural effusion. Heart: Coronary artery disease. Aortic valve calcifications. Lymph nodes: Unremarkable. No enlarged lymph nodes. Liver: Hepatic steatosis. Bones/joints: Unremarkable. No acute fracture. Soft tissues: Unremarkable. Other findings: Stigmata of old granulomatous disease. IMPRESSION: 1. Evaluation of the pulmonary arteries is limited to the segmental arterial level due to poor bolus timing. Within the limitations of the study, no pulmonary emboli. 2. Patchy widespread ground-glass opacities. This is most likely COVID-19 pneumonia. 3. Hepatic steatosis.
[2021-02-05 00:36] LABS: Appearance,Urine SL CLOUDY (Clear); Bilirubin,Urine Negative (Negative); Blood, Urine TRACE-I (Negative); Color,Urine YELLOW (Yellow); Glucose,Urine (UA) Negative (Negative); Ketones,Urine Negative (Negative); Leukocyte Esterase,Urine Negative (Negative); Nitrate,Urine Negative (Negative); Protein,Urine 2+ (Negative); Specific Gravity, Urine 1.025 (1.005-1.030); Urobilinogen,Urine 0.2 EU/dl (0.2)
[2021-02-05 00:38] LABS: Amylase 57 U/L (30-110); Lipase 28 U/L (23-300)
[2021-02-05 00:44] LABS: Bacteria,Urine 1+ /lpf; RBC,Urine Occasional #/hpf (0-3); Squamous Epithelial Cell,Urine Occasional #/hpf (0-5)
[2021-02-05 00:46] LABS: Procalcitonin 0.111 ng/mL (0.0-2.0)
[2021-02-05 00:56] LABS: Erythrocyte Sedimentation Rate 117 mm/hr (0-20)
[2021-02-05 00:58] VITALS: BP 136/62; PULSE 80; RESP 24; O2SAT 94
--- NOTE | 2021-02-05 01:00 | PC.NURSE ---
gave pt's cup and instruction on collecting sputum sample
--- NOTE | 2021-02-05 01:46 | HMH.EDSOB ---
ED Disposition Clinical Impression: COVID-19 Disposition: Home, Self-Care Condition on Discharge: Good Instructions: DI for COVID-19 (Suspected or Confirmed ) Additional Instructions: fluids and call pcp for follow up Referrals: Catarino Ryan [Primary Care Provider] - - Critical Care Critical Care Time: No Attestation: On 02/04/21, the high probability of a clinically significant, sudden or life threatening deterioration of the following system(s) required my full and direct attention, intervention and personal management. The time I documented below is in addition to time spent performing reported procedures but includes the following listed in this critical care notation. Medical Decision Making - Medical Records Medical records reviewed: Yes: I reviewed the patient's medical records. - Silvino Inquiry Pt receiving controlled substance: No Vital Signs: 02/04/21 22:53 02/05/21 00:00 02/05/21 00:31 Temperature 99.9 F H Temperature Source Oral Pulse Rate 86 81 Pulse Rate [Right] 88 Respiratory Rate 26 H Blood Pressure 151/65 H 166/65 H Blood Pressure [Right Arm] 157/60 H Blood Pressure Mean [Right Arm] 92 Blood Pressure Source [Right Arm] Automatic Cuff Blood Pressure Position [Right Arm] Sitting 02 Sat by Pulse Oximetry 91 L 92 L 88 L Oxygen Delivery Method Nasal Cannula Oxygen Flow Rate (LPM) 2 02/05/21 00:58 Temperature Temperature Source Pulse Rate 80 Pulse Rate [Right] Respiratory Rate 24 Blood Pressure 136/62 Blood Pressure [Right Arm] Blood Pressure Mean [Right Arm] Blood Pressure Source [Right Arm] Blood Pressure Position [Right Arm] 02 Sat by Pulse Oximetry 94 L Oxygen Delivery Method Nasal Cannula Oxygen Flow Rate (LPM) 2 - Lab Data Lab results reviewed: Yes: I reviewed the patient's lab results. Lab Results 02/05/21 00:00: WBC 6.5, RBC 4.51 L, Hgb 12.1 L, Hct 38.0 L, MCV 84.2, MCH 26.8 L, MCHC 31.9, RDW 15.8, Plt Count 196, MPV 8.6, Neut % (Auto) 76.2, Lymph % (Auto) 14.8, [place] % (Auto) 7.3, Eos % (Auto) 1.4, Baso % (Auto) 0.2, Neut # (Auto) 4.9, Lymph # (Auto) 1.0, [place] # (Auto) 0.5, Eos # (Auto) 0.1, Baso # (Auto) 0.0, ESR 117 H 02/05/21 00:00: Sodium 141, Potassium 3.6, Chloride 104, Carbon Dioxide 27, Anion Gap 13.6, BUN 15, Creatinine 0.80, Estimated Creat Clear 75, Estimated GFR 97, Est GFR ( Amer) 117, Glucose 139 H D, Calcium 8.5, Total Bilirubin 0.5, AST 39, ALT 26, Alkaline Phosphatase 72, C-Reactive Protein 62.8 H, Total Protein 7.6, Albumin 4.4, Globulin 3.2, Albumin/Globulin Ratio 1.4, Procalcitonin 0.111 02/05/21 00:00: Lactate 0.8 02/05/21 00:00: Amylase 57, Lipase 28 02/05/21 00:17: Urine Color Yellow, Urine Appearance Sl cloudy, Urine pH 6.0, Ur Specific [place] 1.025, Urine Protein 2+, Urine Glucose (UA) Negative, Urine Ketones Negative, Urine Blood Trace-i, Urine Nitrate Negative, Urine Bilirubin Negative, Urine Urobilinogen 0.2, Ur Leukocyte Esterase Negative, Urine RBC Occasional, Urine WBC 3-5, Ur Squamous Epith Cells Occasional, Urine Bacteria 1+ Result diagrams: 02/05/21 00:00 02/05/21 00:00 Orders (Tests/Meds): ED MEDICATIONS Generic Name Dose Route Start Last Admin Trade Name Freq PRN Reason Stop Dose Admin Sodium Chloride 1,000 mls @ 999 mls/hr 02/05/21 00:30 02/05/21 00:42 Sod Chlor 0.9% 1000ml Bag IV 02/05/21 01:30 999 mls/hr .Q1H1M ROSALBA Administration Sodium Chloride 3 ml 02/04/21 23:54 Sodium Chloride 3% 15ml Neb IH 03/06/21 23:53 ONCE PRN INDUCE SPUTUM COLLECTION Discontinued Medications Generic Name Dose Route Start Last Admin Trade Name Freq PRN Reason Stop Dose Admin Dexamethasone Sodium Phosphate 10 mg 02/05/21 00:42 02/05/21 00:42 Dexamethasone 4mg/Ml 1ml Vial IV 02/05/21 00:43 10 mg ONCE ONE Administration Iopamidol 70 ml 02/05/21 01:54 02/05/21 01:55 Iopamidol-370 (76%);100ml Bottle IV 02/05/21 01:55 70 ml ONCE ONE Administration Ondansetron
[2021-02-05 03:44] VITALS: BP 130/72; PULSE 84; RESP 23; TEMP 36.9; O2SAT 94
== END 2021-02-05 04:05 | disposition home or self-care (01) ==
PROVIDERS: Emergency Provider Emergency Medicine; PCP Family Medicine
DX: U07.1 COVID-19 (principal); E10.9 Type 1 diabetes mellitus without complications; J44.9 Chronic obstructive pulmonary disease, unspecified; Z79.899 Other long term (current) drug therapy; Z88.2 Allergy status to sulfonamides
CPT/HCPCS: 71045; 71046; 71275; 80053; 81001; 82150; 82803; 83605; 83690; 83735; 83880; 84145; 85025; 85378; 85651; 86140; 87040; 93005; 96365; 96375; 99283; 99284; J2405; Q9967

== ENCOUNTER 2021-02-09 16:35 | Emergency (ER) | payer MEDICARE, BC, SELFPAY ==
[2021-02-09 16:37] VITALS: BP 185/77; PULSE 80; RESP 24; TEMP 36.8; O2SAT 93; BMI 45.9
--- NOTE | 2021-02-09 17:02 | XR_ITS ---
PROCEDURE INFORMATION: Exam: XR Chest Exam date and time: 02/09/2021 5:02 PM Age: 65 years old Clinical indication: Patient HX: Cough, SOA TECHNIQUE: Imaging protocol: XR of the chest. Views: 1 view. COMPARISON: CR XR CHEST 2V 02/04/2021 11:32 PM FINDINGS: Lungs: Faint bibasilar opacities are seen. They appear to be mostly interstitial in nature. Pleural spaces: Unremarkable. No pleural effusion. No pneumothorax. Heart/Mediastinum: Heart appears mildly enlarged likely exacerbated by technique. Bones/joints: Unremarkable. IMPRESSION: Findings suggest CHF with mild interstitial edema. Infection also possible.
[2021-02-09 17:39] LABS: ABG Base Excess 2.4 mmol/L (-2.4-2.3); ABG HCO3 26.5 mmhg (22.0-26.0); ABG Oxygen Saturation 96 % (90-100); ABG PCO2 39.6 mmhg (35.0-45.0); ABG PH 7.44 mmol/L (7.35-7.45); ABG PO2 70.5 mmhg (80-100); ABG TCO2 27.8 mmhg (23-27)
[2021-02-09 17:42] LABS: Allen's Test Acceptable; Oxygen 2L %; Source Left Radial
[2021-02-09 17:54] LABS: Chloride 103 mmol/L (98-107); Potassium 3.9 mmoL/L (3.5-5.1); Sodium 140 mmol/L (136-145)
[2021-02-09 17:55] LABS: Basophils % 0.5 % (0.1-2.0); Eosinophils # 0.2 K/mm3 (0.0-0.4); Eosinophils % 2.2 % (0.1-12.0); Hematocrit 39.4 % (42.0-52.0); Hemoglobin 11.8 g/dL (14.1-18.0); Lymphocytes # 1.2 K/mm3 (0.7-4.5); Lymphocytes % 17.4 % (10-50); Mean Corpuscular Hemoglobin 26.8 pg (27.0-31.2); Mean Corpuscular Volume 89.5 fl (80-94); Mean Platelet Volume 8.5 fl (7.4-10.4); Monocytes # 0.5 K/mm3 (0.1-1.0); Monocytes % 6.8 % (1.7-9.3); Neutrophils # 5.1 K/mm3 (1.8-7.8); Neutrophils % 73.1 % (37.0-80.0); Platelet Count 348 K/mm3 (142-424); Red Cell Distribution Width 15.3 % (11.5-17.5); White Blood Count 6.9 K/mm3 (4.8-10.8)
[2021-02-09 17:56] LABS: Blood Urea Nitrogen 11 mg/dl (9-20); Creatinine Clearance Estimated 75 mL/min (50-200)
[2021-02-09 17:57] LABS: Alanine Aminotransferase 19 U/L (12-78); Albumin Level 3.9 g/dl (3.5-5.0); Albumin/Globulin Ratio 1.1 (1.1-1.8); Alkaline Phosphatase 74 U/L (38-126); Anion Gap 12.9 mEq/L (5-15); Aspartate Amino Transferase 26 U/L (17-59); Bilirubin,Total 0.6 mg/dl (0.2-1.3); Carbon Dioxide 28 mmol/L (22.0-30.0); Estimated Glomerular Filt Rate 135 ml/min (>60); GFR (African American) 163 ML/MIN (>60); Globulin 3.6 g/dL (1.3-3.2); Total Protein,Serum 7.5 g/dl (6.3-8.2)
[2021-02-09 17:58] LABS: Calcium 8.5 mg/dl (8.4-10.2); Glucose 242 mg/dl (74-100)
--- NOTE | 2021-02-09 18:00 | HMH.EDGENADL ---
ED Disposition Clinical Impression: Pneumonia due to COVID-19 virus Disposition: Home, Self-Care Condition on Discharge: Good Instructions: DI for COVID-19 (Suspected or Confirmed ) Referrals: Catarino Ryan [Primary Care Provider] - - Critical Care Critical Care Time: No Attestation: On 02/09/21, the high probability of a clinically significant, sudden or life threatening deterioration of the following system(s) required my full and direct attention, intervention and personal management. The time I documented below is in addition to time spent performing reported procedures but includes the following listed in this critical care notation. Medical Decision Making - Medical Records Medical records reviewed: Yes: I reviewed the patient's medical records. - Silvino Inquiry Pt receiving controlled substance: No Vital Signs: 02/09/21 16:37 Temperature 98.2 F Temperature Source Oral Pulse Rate [Left Radial] 80 Respiratory Rate 24 Blood Pressure [Right Arm] 185/77 H Blood Pressure Mean [Right Arm] 113 Blood Pressure Source [Right Arm] Automatic Cuff Blood Pressure Position [Right Arm] Sitting 02 Sat by Pulse Oximetry 93 L Oxygen Delivery Method Nasal Cannula Oxygen Flow Rate (LPM) 3 - Lab Data Lab Results 02/09/21 17:02: Specimen Source Left radial, O2 % 2l, ABG pH 7.44, ABG pCO2 39.6, ABG pO2 70.5 L, ABG HCO3 26.5 H, ABG Total CO2 27.8 H, ABG O2 Saturation 96, ABG Base Excess 2.4 H, Mahesh Test Acceptable 02/09/21 17:34: WBC 6.9, RBC 4.40 L, Hgb 11.8 L, Hct 39.4 L, MCV 89.5, MCH 26.8 L, MCHC 30.0 L, RDW 15.3, Plt Count 348, MPV 8.5, Neut % (Auto) 73.1, Lymph % (Auto) 17.4, [place] % (Auto) 6.8, Eos % (Auto) 2.2, Baso % (Auto) 0.5, Neut # (Auto) 5.1, Lymph # (Auto) 1.2, [place] # (Auto) 0.5, Eos # (Auto) 0.2, Baso # (Auto) 0.0 02/09/21 17:34: Sodium 140, Potassium 3.9, Chloride 103, Carbon Dioxide 28, Anion Gap 12.9, BUN 11, Creatinine 0.60 L, Estimated Creat Clear 75, Estimated GFR 135, Est GFR ( Amer) 163, Glucose 242 H, Calcium 8.5, Total Bilirubin 0.6, AST 26, ALT 19, Alkaline Phosphatase 74, Troponin I < 0.01, Total Protein 7.5, Albumin 3.9, Globulin 3.6 H, Albumin/Globulin Ratio 1.1 02/09/21 17:58: NT-Pro-B Natriuret Pep 102 Result diagrams: 02/09/21 17:34 02/09/21 17:34 Orders (Tests/Meds): ED MEDICATIONS Discontinued Medications Generic Name Dose Route Start Last Admin Trade Name Freq PRN Reason Stop Dose Admin Dexamethasone Sodium Phosphate 10 mg 02/09/21 17:02 02/09/21 17:42 Dexamethasone 4mg/Ml 5ml Mdv IV 02/09/21 17:03 10 mg ONCE ONE Administration ORDERS Category Date Time Status Troponin I Q3H Lab 02/09/21 20:15 Ordered Troponin I Q3H Lab 02/09/21 23:15 Ordered - Radiology Data #1 Image(s): Chest Image Reviewed: Yes I reviewed the patient's radiology results, Yes I reviewed the patient's radiology image, Yes I have reviewed radiologist's interpretation IMPRESSION: Findings suggest CHF with mild interstitial edema. Infection also possible. - Reevaluation(s) Time: 18:30 Reevaluation #1: On reevaluation, patient is feeling much better. He has maintained his oxygen saturations on his normal home oxygen requirements. ABG did show some slight hypoxia, however there is no evidence of respiratory distress at this time. I did have a discussion with the patient regarding admission versus outpatient treatment. Unfortunately he was previously scheduled for monoclonal antibody infusion, however he missed his appointment and now he has outside of the window for appropriate administration. As the patient is not having any significant respiratory distress or compromise, he would like to continue with outpatient treatment at this time. He has plenty of home oxygen at home as well as inhalers and his maintenance medications. He is to continue with Tylenol for symptomatic relief. If he is to have any change in symptoms, he is to return the emergency department im
[2021-02-09 18:09] LABS: Troponin I < 0.01 ng/ml (0.00-0.034)
[2021-02-09 18:26] LABS: NT Pro Brain Natriuretic Pep. 102 pg/mL (0-125)
[2021-02-09 18:59] VITALS: BP 171/77; PULSE 82; RESP 22; TEMP 36.8; O2SAT 95
== END 2021-02-09 19:00 | disposition home or self-care (01) ==
PROVIDERS: Emergency Provider Emergency Medicine; PCP Family Medicine
DX: U07.1 COVID-19 (principal); J12.82 Pneumonia due to coronavirus disease 2019; J44.9 Chronic obstructive pulmonary disease, unspecified; Z79.899 Other long term (current) drug therapy; Z88.5 Allergy status to narcotic agent; Z88.6 Allergy status to analgesic agent
CPT/HCPCS: 71045; 80053; 82803; 83880; 84484; 85025; 96374; 99282

== ENCOUNTER → 2021-03-03 14:37 | Outpatient (CLI) | payer MEDICARE, BC, SELFPAY ==
[2021-03-03 16:06] LABS: Basophils % 0.3 % (0.1-2.0); Eosinophils # 0.4 K/mm3 (0.0-0.4); Eosinophils % 4.8 % (0.1-12.0); Hematocrit 39.1 % (42.0-52.0); Hemoglobin 12.1 g/dL (14.1-18.0); Lymphocytes # 1.8 K/mm3 (0.7-4.5); Lymphocytes % 19.8 % (10-50); Mean Corpuscular HGB Conc 30.9 g/dL (31.8-35.4); Mean Corpuscular Hemoglobin 27.4 pg (27.0-31.2); Mean Corpuscular Volume 88.8 fl (80-94); Mean Platelet Volume 7.5 fl (7.4-10.4); Monocytes # 0.9 K/mm3 (0.1-1.0); Monocytes % 9.7 % (1.7-9.3); Neutrophils # 5.8 K/mm3 (1.8-7.8); Neutrophils % 65.4 % (37.0-80.0); Platelet Count 285 K/mm3 (142-424); Red Cell Distribution Width 15.7 % (11.5-17.5); White Blood Count 8.9 K/mm3 (4.8-10.8)
== END ==
PROVIDERS: Visit Provider Orthopaedic Surgery
DX: L03.113 Cellulitis of right upper limb (principal)
CPT/HCPCS: 36415; 85025

== ENCOUNTER 2021-04-01 15:00 | Outpatient (RCR) | payer MEDICARE, BC, SELFPAY | END 2021-04-01 15:05 | disposition home or self-care (01) | LOC: PT 15:00 | PROVIDERS: PCP Family Medicine | DX: M25.512 Pain in left shoulder (principal) | CPT/HCPCS: 97010; 97014; 97110; 97140; 97163; 97164; G0283 ==

== ENCOUNTER 2021-04-03 21:00 | Emergency (ER) | payer MEDICARE, BC, SELFPAY ==
--- NOTE | 2021-04-03 | ECG_ITS ---
APPROVED REPORT Exam: Resting ECG HR:98 bpm ECG Measurements Heart Rate 98 AXES [place] 186 P 13 QRSd 100 QRS -16 QT 352 T 49 QTc 449 Conclusion Normal sinus rhythm Minimal voltage criteria for LVH, may be normal variant Borderline ECG Electronically signed by : Blaise Bundy MD 04/04/2021 08:55:59
[2021-04-03 21:10] VITALS: BP 174/76; PULSE 99; RESP 18; TEMP 37.1; O2SAT 94; BMI 54.5
--- NOTE | 2021-04-03 21:28 | XR_ITS ---
PROCEDURE INFORMATION: Exam: XR Chest Exam date and time: 04/03/2021 9:28 PM Age: 66 years old Clinical indication: Shortness of breath; Additional info: SOA TECHNIQUE: Imaging protocol: XR of the chest. Views: 2 views. COMPARISON: CR XR CHEST PORTABLE 02/09/2021 5:08 PM FINDINGS: Lungs: Subtle interstitial haziness could reflect interstitial pneumonia. No consolidation. Granulomatous change. Pleural spaces: Unremarkable. No pleural effusion. No pneumothorax. Heart/Mediastinum: Unremarkable. No cardiomegaly. Bones/joints: Unremarkable. IMPRESSION: Subtle interstitial haziness could reflect interstitial pneumonia.
--- NOTE | 2021-04-03 21:28 | CT_ITS ---
PROCEDURE INFORMATION: Exam: CTA Chest With Contrast Exam date and time: 04/03/2021 9:28 PM Age: 66 years old Clinical indication: Shortness of breath; Additional info: SOA TECHNIQUE: Imaging protocol: Computed tomographic angiography of the chest with contrast. 3D rendering (Not supervised by radiologist): MIP and/or 3D reconstructed images were created by the technologist. Radiation optimization: All CT scans at this facility use at least one of these dose optimization techniques: automated exposure control; mA and/or kV adjustment per patient size (includes targeted exams where dose is matched to clinical indication); or iterative reconstruction. Contrast material: ISOVUE 370; Contrast volume: 70 ml; Contrast route: INTRAVENOUS (IV); COMPARISON: CT ANGIO CHEST PE PROTOCOL 02/05/2021 1:30 AM FINDINGS: Pulmonary arteries: Normal. No pulmonary emboli. Aorta: Unremarkable. No aortic aneurysm. No aortic dissection. Lungs: Unremarkable. No consolidation. No masses. Pleural spaces: Unremarkable. No pneumothorax. No pleural effusion. Heart: Unremarkable. No cardiomegaly. No pericardial effusion. Lymph nodes: Unremarkable. No enlarged lymph nodes. Bones/joints: Unremarkable. No acute fracture. Soft tissues: Unremarkable. IMPRESSION: No acute findings.
[2021-04-03 21:31] LABS: ABG Base Excess 1.6 mmol/L (-2.4-2.3); ABG HCO3 25.1 mmhg (22.0-26.0); ABG Oxygen Saturation 95 % (90-100); ABG PCO2 34.3 mmhg (35.0-45.0); ABG PH 7.48 mmol/L (7.35-7.45); ABG PO2 69.7 mmhg (80-100); ABG TCO2 26.1 mmhg (23-27)
[2021-04-03 21:33] LABS: Allen's Test ACCEPTABLE; Oxygen 2LPM %; Source L RADIAL
[2021-04-03 21:33] LABS: Coronavirus 19, PCR Not Detected (NotDetected); Influenza A, PCR Not Detected (NotDetected); Influenza B, PCR Not Detected (NotDetected)
[2021-04-03 21:36] LABS: Basophils # 0.1 K/mm3 (0-0.2); Basophils % 0.6 % (0.1-2.0); Eosinophils # 0.1 K/mm3 (0.0-0.4); Eosinophils % 0.9 % (0.1-12.0); Hematocrit 40.9 % (42.0-52.0); Hemoglobin 12.9 g/dL (14.1-18.0); Mean Corpuscular HGB Conc 31.6 g/dL (31.8-35.4); Mean Corpuscular Hemoglobin 27.7 pg (27.0-31.2); Mean Corpuscular Volume 87.8 fl (80-94); Mean Platelet Volume 8.5 fl (7.4-10.4); Monocytes # 0.5 K/mm3 (0.1-1.0); Monocytes % 5.9 % (1.7-9.3); Neutrophils # 6.8 K/mm3 (1.8-7.8); Neutrophils % 80.6 % (37.0-80.0); Platelet Count 225 K/mm3 (142-424); Red Blood Count 4.65 M/mm3 (4.60-6.20); Red Cell Distribution Width 16.2 % (11.5-17.5); White Blood Count 8.5 K/mm3 (4.8-10.8)
[2021-04-03 21:37] LABS: Lactic Acid 1.9 mmol/L (0.7-2.1)
[2021-04-03 21:38] LABS: Anion Gap 11.8 mEq/L (5-15); Blood Urea Nitrogen 12 mg/dl (9-20); Calcium 8.9 mg/dl (8.4-10.2); Carbon Dioxide 28 mmol/L (22.0-30.0); Chloride 102 mmol/L (98-107); Creatinine Clearance Estimated 74 mL/min (50-200); Estimated Glomerular Filt Rate 134 ml/min (>60); GFR (African American) 163 ML/MIN (>60); Glucose 277 mg/dl (74-100); Potassium 3.8 mmoL/L (3.5-5.1); Sodium 138 mmol/L (136-145)
[2021-04-03 21:46] LABS: C-Reactive Protein 61.9 mg/L (0-4)
[2021-04-03 22:01] LABS: Erythrocyte Sedimentation Rate 67 mm/hr (0-20)
--- NOTE | 2021-04-03 22:59 | HMH.EDNVD ---
ED Disposition Clinical Impression: Bronchitis Disposition: Home, Self-Care Condition on Discharge: Good Instructions: DI for Nausea -- Adult Additional Instructions: fluids and see pcp for follow up Prescriptions: Azithromycin [Zithromax 250mg tab] 250 mg PO DIRECTED #6 tab Transmission Status: Pending to [facility] #[id number] Referrals: Catarino Ryan [Primary Care Provider] - - Critical Care Critical Care Time: No Attestation: On 04/03/21, the high probability of a clinically significant, sudden or life threatening deterioration of the following system(s) required my full and direct attention, intervention and personal management. The time I documented below is in addition to time spent performing reported procedures but includes the following listed in this critical care notation. Medical Decision Making - Medical Records Medical records reviewed: Yes: I reviewed the patient's medical records. - Silvino Inquiry Pt receiving controlled substance: No Vital Signs: 04/03/21 21:10 Temperature 98.7 F Temperature Source Oral Pulse Rate [Apical] 99 H Respiratory Rate 18 Blood Pressure [Right Arm] 174/76 H Blood Pressure Mean [Right Arm] 108 Blood Pressure Source [Right Arm] Automatic Cuff Blood Pressure Position [Right Arm] Sitting 02 Sat by Pulse Oximetry 94 L Oxygen Delivery Method Nasal Cannula Oxygen Flow Rate (LPM) 2.5 - Lab Data Lab results reviewed: Yes: I reviewed the patient's lab results. Lab Results 04/03/21 21:15: WBC 8.5, RBC 4.65, Hgb 12.9 L, Hct 40.9 L, MCV 87.8, MCH 27.7, MCHC 31.6 L, RDW 16.2, Plt Count 225, MPV 8.5, Neut % (Auto) 80.6 H, Lymph % (Auto) 12.0, [place] % (Auto) 5.9, Eos % (Auto) 0.9, Baso % (Auto) 0.6, Neut # (Auto) 6.8, Lymph # (Auto) 1.0, [place] # (Auto) 0.5, Eos # (Auto) 0.1, Baso # (Auto) 0.1 04/03/21 21:15: Sodium 138, Potassium 3.8, Chloride 102, Carbon Dioxide 28, Anion Gap 11.8, BUN 12, Creatinine 0.60 L, Estimated Creat Clear 74, Estimated GFR 134, Est GFR ( Amer) 163, Glucose 277 H, Calcium 8.9 04/03/21 21:15: Lactate 1.9 04/03/21 21:15: ESR 67 H 04/03/21 21:15: C-Reactive Protein 61.9 H 04/03/21 21:15: SARS-CoV-2 (PCR) Not detected, Influenza A Untype (PCR) Not detected, Influenza Type B (PCR) Not detected 04/03/21 21:20: Specimen Source L radial, O2 % 2lpm, ABG pH 7.48 H, ABG pCO2 34.3 L, ABG pO2 69.7 L, ABG HCO3 25.1, ABG Total CO2 26.1, ABG O2 Saturation 95, ABG Base Excess 1.6, Mahesh Test Acceptable Result diagrams: 04/03/21 21:15 04/03/21 21:15 Orders (Tests/Meds): ED MEDICATIONS Generic Name Dose Route Start Last Admin Trade Name Freq PRN Reason Stop Dose Admin Sodium Chloride 1,000 mls @ 999 mls/hr 04/03/21 21:30 04/03/21 21:34 Sod Chlor 0.9% 1000ml Bag IV 04/03/21 22:30 999 mls/hr .Q1H1M ROSALBA Administration Discontinued Medications Generic Name Dose Route Start Last Admin Trade Name Freq PRN Reason Stop Dose Admin Dexamethasone Sodium Phosphate 10 mg 04/03/21 21:30 04/03/21 21:34 Dexamethasone 4mg/Ml 5ml Mdv IV 04/03/21 21:31 10 mg ONCE ONE Administration Iopamidol 70 ml 04/03/21 22:25 04/03/21 22:26 Iopamidol-370 (76%);100ml Bottle IV 04/03/21 22:26 70 ml ONCE ONE Administration Sodium Chloride 40 ml 04/03/21 22:25 04/03/21 22:26 0.9 % Sodium Chloride 50 Ml Vial IV 04/03/21 22:26 40 ml ONCE ONE Administration Sodium Chloride 10 ml 04/03/21 22:25 04/03/21 22:26 Sodium Chloride 0.9% 10ml Syr (Rad Only) IV 04/03/21 22:26 10 ml ONCE ONE Administration ORDERS Category Date Time Status Diarrhea 23 Panel, PCR Stat Lab 04/03/21 21:38 Ordered Blood Culture Stat Micro 04/03/21 21:15 Received - Radiology Data #1 Image(s): Chest Image Reviewed: Yes I have reviewed radiologist's interpretation Preliminary Findings: Normal/NAD - CT Data CT Scan: Chest Time Received: 23:[address] Reviewed: Yes: I have viewed the radiologist's interpretation Preliminary
[2021-04-03 23:09] VITALS: BP 159/80; PULSE 90; RESP 20; TEMP 36.8; O2SAT 95
[2021-04-03 23:17] VITALS: BP 174/76; PULSE 99; RESP 18; TEMP 37.1; O2SAT 99
== END 2021-04-03 23:17 | disposition home or self-care (01) ==
PROVIDERS: Emergency Provider Emergency Medicine; PCP Family Medicine
DX: J20.9 Acute bronchitis, unspecified (principal); Z20.822 Contact with and (suspected) exposure to COVID-19; J45.909 Unspecified asthma, uncomplicated; Z88.2 Allergy status to sulfonamides; Z79.899 Other long term (current) drug therapy
CPT/HCPCS: 71046; 71275; 80048; 82803; 83605; 85025; 85651; 86140; 87040; 93005; 96365; 96375; 99285; C9803; Q9967; U0003; U0005

== ENCOUNTER 2021-04-10 09:36 | Emergency (ER) | payer MEDICARE, BC, SELFPAY ==
[2021-04-10 10:08] VITALS: BP 175/78; PULSE 80; RESP 22; TEMP 36.6; O2SAT 94; BMI 54.5
--- NOTE | 2021-04-10 10:19 | HMH.EDUTC ---
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 Follow up with Dr Ryan Return to ER immediately if shortness of breath, chest pain, or any other concerning symptoms. Steroids will increase your blood sugar and may cause fluid retention. Prescriptions: Furosemide [Lasix 20mg tab] 20 mg PO DAILY PRN #10 tab PRN Reason: fluid retention Transmission Status: Pending to [facility] Cefdinir [Omnicef 300mg Capsule] 300 mg PO BID #20 cap Transmission Status: Pending to [facility] predniSONE [Prednisone 20mg Tab] 20 mg PO BID 5 Days #10 tab Transmission Status: Pending to [facility] Referrals: Catarino Ryan [Primary Care Provider] - Time of Disposition: 10:36 Medical Decision Making - Medical Records Medical records reviewed: Yes: I reviewed the patient's medical records. MR Comment: Patient seen in ER 04/03/21. Diagnosed with pneumonia on Xray. Z-Pack was sent but patient states when he took the first dose, his stomach got upset so he did not complete it. CTA was negative for PE. - Silvino Inquiry Pt receiving controlled substance: No Vital Signs: 04/10/21 10:08 Temperature 97.8 F Temperature Source Oral Pulse Rate [Brachial] 80 Respiratory Rate 22 Blood Pressure [Right Arm] 175/78 H Blood Pressure Mean [Right Arm] 110 Blood Pressure Source [Right Arm] Automatic Cuff Blood Pressure Position [Right Arm] Sitting 02 Sat by Pulse Oximetry 94 L Oxygen Delivery Method Nasal Cannula Oxygen Flow Rate (LPM) 2 Medical Decision Narrative: Reviewed ER records and discussed with patient. He did not realize he had pneumonia and did not finish his Z-Pack because it hurt his stomach. Symptoms of dehydration improved. Doesn't think he needs IV fluids at this time. O2 improved when he was switched to wall oxygen here and dyspnea improved. He states he has another tank in his truck, he just didn't realize this one was so low. Will treat outpatient for the time being but patient states he will return immediately if he starts to feel worse. [facility] [place] - General Stated complaint: fever, cough, congestion Time Seen by Provider: 04/10/21 10:19 Mode of Arrival: Ambulatory Source of Information: Patient Limitations: No Limitations Description of Symptoms (Recalled from Triage Doc. by RN): cough. congestion. sore throat HEENT Symptoms (Recalled from RN notes): No Resp Symptoms (Recalled from RN notes): Yes Skin Symptoms (Recalled from RN notes): No MS Symptoms (Recalled from RN notes): No Functional Status (Recalled from RN notes): yes - History of Present Illness Provider Complaint: Patient presents with shortness of breath. States he had COVID19 in January. He has COPD. He is O2 dependent. Has rescue inhaler and 2 maintenance inhalers. No history of CHF. Came to ER on 04/03/2021 with fever, diarrhea, shortness of breath. He was given IV fluids and steroids, which did help. He is short of breath again today. No fever. Denies chest pain. Does state his legs are slightly swollen. He now has constipation after taking meds for diarrhea. Onset (ago): week(s) (1) Location: chest Relieving factors: none Exacerbating factors: none Associated symptoms: cough, shortnes
[2021-04-10 10:46] VITALS: BP 175/78; PULSE 80; RESP 20; TEMP 36.6
== END 2021-04-10 10:46 | disposition home or self-care (01) ==
PROVIDERS: Emergency Provider Physician Assistant; PCP Family Medicine
DX: J44.1 Chronic obstructive pulmonary disease with (acute) exacerbation (principal); Z86.16 Personal history of COVID-19; E11.9 Type 2 diabetes mellitus without complications; Z99.81 Dependence on supplemental oxygen; Z88.2 Allergy status to sulfonamides; Z79.899 Other long term (current) drug therapy
CPT/HCPCS: G0463; 90471; 99202

== ENCOUNTER 2021-04-16 13:47 | Emergency (ER) | payer MEDICARE, BC, SELFPAY ==
--- NOTE | 2021-04-16 15:22 | XR_ITS ---
PROCEDURE: XR CHEST AP CLINICAL HISTORY: congestion Severe shortness of breath and congestion. Patient had COVID January 30, 2021. Has not felt well since that time. History of COPD. COMPARISON: CR XR CHEST 2V from 02/04/2021 CR XR CHEST PORTABLE from 02/09/[address] ANGIO CHEST PE PROTOCOL from 04/03/2021 CR XR CHEST 2V from 04/03/2021 FINDINGS: Again identified is mild interstitial haziness similar to prior study. There is subsegmental atelectasis in the mid right lung zone. No pleural fluid. No pneumothorax. Mediastinal structures are midline. Lung volumes are equal and symmetric. Cardiomediastinal silhouette is not enlarged. IMPRESSION: Stable chest radiograph. Dictated by: Malu Dejesus MD 04/16/2021 15:56 Malu Dejesus MD in [place] 04/16/2021 15:56
[2021-04-16 15:36] VITALS: BP 150/71; PULSE 89; RESP 22; TEMP 36.6; O2SAT 98; BMI 50.1
--- NOTE | 2021-04-16 16:07 | HMH.EDUTC ---
[facility] [place]: Interstitial pneumonia Disposition: Home, Self-Care Condition on Discharge: Good Instructions: Pneumonia-Adult, Levofloxacin Additional Instructions: Stop Cefdnir and start Levaquin as prescribed Follow up with Family Doctor next week for re-evaluation Continued lasix and albuteral as prescribed Return if needed Straight to ER if any life threatening symptoms or worsening of shortness of breath Prescriptions: levoFLOXacin [Levaquin 750mg tablet] 750 mg PO DAILY 7 Days #7 tab Transmission Status: Received by [facility][id number] Referrals: Catarino Ryan [Primary Care Provider] - As needed Time of Disposition: 16:37 Medical Decision Making - Silvino Inquiry Pt receiving controlled substance: No Silvino was queried for this patient: No Vital Signs: 04/16/21 15:36 04/16/21 16:25 Temperature 97.9 F 97.9 F Temperature Source Oral Pulse Rate 89 Pulse Rate [Left] 89 Respiratory Rate 22 19 Blood Pressure 150/71 H Blood Pressure [Right Arm] 150/71 H Blood Pressure Mean [Right Arm] 97 02 Sat by Pulse Oximetry 98 Oxygen Delivery Method Nasal Cannula Oxygen Flow Rate (LPM) 2.5 Orders (Tests/Meds): ED MEDICATIONS Discontinued Medications Generic Name Dose Route Start Last Admin Trade Name Freq PRN Reason Stop Dose Admin Methylprednisolone Sodium Succinate 125 mg 04/16/21 16:09 04/16/21 16:20 Methylprednisolone Sod Succ 125mg Vial IM 04/16/21 16:10 125 mg ONCE ONE Administration - Radiology Data #1 Image(s): Chest Image Reviewed: Yes I have reviewed radiologist's interpretation FINDINGS: Again identified is mild interstitial haziness similar to prior study. There is subsegmental atelectasis in the mid right lung zone. No pleural fluid. No pneumothorax. Mediastinal structures are midline. Lung volumes are equal and symmetric. Cardiomediastinal silhouette is not enlarged. IMPRESSION: Stable chest radiograph. Medical Decision Narrative: Discussed medication change due to patient reports not feeling any better on current medication and agreed with stop the Cefdinir and have patient start Levaquin 750mg daily for 7 days and follow up with PCP next week [facility] [place] General Stated complaint: covid symptoms, pna Time Seen by Provider: 04/16/21 16:07 Mode of Arrival: Ambulatory Source of Information: Patient Limitations: No Limitations Description of Symptoms (Recalled from Triage Doc. by RN): pt c/o cough, congestion and body aches. pt states he was here a few days ago and is not feeling any better. HEENT Symptoms (Recalled from RN notes): Yes (congestion) Resp Symptoms (Recalled from RN notes): Yes (cough and congestion) Skin Symptoms (Recalled from RN notes): No MS Symptoms (Recalled from RN notes): No Functional Status (Recalled from RN notes): body aches - History of Present Illness Provider Complaint: Patient states that he was here about a week ago and was given shot of Rocephin and started on Cefdnir States that he doesnt feel like he is getting any better States that he wanted to get another chest xray also States that at times he feels more SOA but has been on O2 since he had COVID in Jan - Related Data Home Medications Medication Instructions Recorded Confirmed Fluoxetine HCl [Prozac 20mg 20 mg PO DAILY 04/29/19 02/05/21 Capsule] Gabapentin 600 mg PO TID 04/29/19 02/05/21 Losartan Potassium [Cozaar 100mg 100 mg PO DAILY 04/29/19 02/05/21 Tablets] diphenhydrAMINE HCL [Benadryl 25mg 25 mg PO HS 04/29/19 02/05/21 Capsule] Amlodipine Besylate 5 mg PO DAILY 02/05/21 02/05/21 Hydrocodone/Acetaminophen 1 tab PO QID 02/05/21 02/05/21 [Hydrocodone-Acetamin 7.5-325] Insulin Regular, Human [Humulin R 55 unit SQ ACHS 02/05/21 02/05/21 U-500 Kwikpen] Lidocaine [Lidoderm 5% transdermal 1 pad TOPICAL DIRECTED 02/05/21 02/05/21 patch] Pantoprazole Sodium [Protonix 40mg 40 mg PO DAILY 01/18
[2021-04-16 16:25] VITALS: BP 150/71; PULSE 89; RESP 19; TEMP 36.6
== END 2021-04-16 16:40 | disposition home or self-care (01) ==
PROVIDERS: Emergency Provider Nurse Practitioner; PCP Family Medicine
DX: J18.9 Pneumonia, unspecified organism (principal); E10.9 Type 1 diabetes mellitus without complications; J45.909 Unspecified asthma, uncomplicated; Z79.899 Other long term (current) drug therapy
CPT/HCPCS: G0463; 71045; 96372; 99202

== ENCOUNTER → 2021-08-18 15:09 | Outpatient (CLI) | payer MEDICARE, BC, SELFPAY ==
[2021-08-18 17:30] LABS: C-Reactive Protein 33.1 mg/L (0-4)
[2021-08-18 17:36] LABS: Basophils # 0.1 K/mm3 (0-0.2); Basophils % 0.6 % (0.1-2.0); Eosinophils # 0.3 K/mm3 (0.0-0.4); Eosinophils % 3.5 % (0.1-12.0); Hematocrit 41.6 % (42.0-52.0); Lymphocytes # 2.3 K/mm3 (0.7-4.5); Lymphocytes % 24.5 % (10-50); Mean Corpuscular HGB Conc 31.2 g/dL (31.8-35.4); Mean Corpuscular Hemoglobin 27.8 pg (27.0-31.2); Mean Platelet Volume 8.9 fl (7.4-10.4); Monocytes # 0.6 K/mm3 (0.1-1.0); Monocytes % 5.8 % (1.7-9.3); Neutrophils # 6.3 K/mm3 (1.8-7.8); Neutrophils % 65.6 % (37.0-80.0); Platelet Count 276 K/mm3 (142-424); Red Blood Count 4.67 M/mm3 (4.60-6.20); Red Cell Distribution Width 15.6 % (11.5-17.5); White Blood Count 9.5 K/mm3 (4.8-10.8)
[2021-08-18 18:10] LABS: Erythrocyte Sedimentation Rate 38 mm/hr (0-20)
[2021-08-20 13:21] LABS: RA Latex Turbid. <10.0 IU/mL (<14.0)
[2021-08-20 21:20] LABS: Antinuclear Antibodies, IFA Negative (.)
== END ==
PROVIDERS: Visit Provider Nurse Practitioner
DX: U09.9 Post COVID-19 condition, unspecified (principal)
CPT/HCPCS: 36415; 85025; 85651; 86038; 86140; 86431

== ENCOUNTER → 2021-09-03 14:48 | Outpatient (CLI) | payer MEDICARE, BC, SELFPAY ==
[2021-09-05 08:15] LABS: Cancer Antigen (CA) 125 5.9 U/mL (Not Estab.)
== END ==
PROVIDERS: Visit Provider Orthopaedic Surgery
DX: R06.09 Other forms of dyspnea (principal); Z12.5 Encounter for screening for malignant neoplasm of prostate
CPT/HCPCS: 36415; 86316

== ENCOUNTER 2022-01-22 16:00 | Outpatient (RCR) | payer MEDICARE, BC, SELFPAY | END 2022-01-22 16:05 | disposition home or self-care (01) | LOC: PT 16:00 | PROVIDERS: Visit Provider Orthopaedic Surgery | DX: M25.512 Pain in left shoulder (principal) | CPT/HCPCS: 97010; 97014; 97110; 97140; 97163; 97164; G0283 ==

== ENCOUNTER → 2022-01-28 11:09 | Outpatient (CLI) | payer MEDICARE, BC, SELFPAY ==
--- NOTE | 2022-01-28 | CA_ITS ---
APPROVED REPORT Exam: Pharmacologic Technologist: Lucina Johnston, Ht: 5 ft 10 in Wt: 346 lbs BSA: 2.63 m2 HR: 96 bpm BP: 149/77 mmHg Rhythm: NSR, 1st degree AVB, cannot R/O old inferior [place], poor R wave progression Indications: PreOp 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: HTN, Hyperlipidemia, Diabetes Medications: Amlodipine,,,,, Gabapentin,,,,, Losartan,,,,, Pantoprazole,,,,, TAMSULOSIN,,,,, INSULIN,,,,, Albuterol,,,,, OxYCODONE,,,,, FluTICASONE,,,,, Fluoxetine,,,,, DiPHENHYDRAMINE,,,,, Ezetimbe,,,,, Cardiac Risk Factors: HTN, Hyperlipidemia, Diabetes (insulin) Stress Test Details Test: LEXISCAN HR Resting HR: 99 bpm Max Heart Rate (APMHR): 153.005257 bpm Max HR Achieved: 107 bpm Target HR (85% APMHR): 130.074656 bpm % of APMHR: 69.93 Recovery HR: 93 bpm BP Resting BP: 149/77 mmHg Max BP: 149/77 mmHg Recovery BP: 123.0/58.0 mmHg ECG Resting ECG: NSR, 1st degree AVB, cannot R/O old inferior [place], poor R wave progression Clinical Exercise duration: 04:00 min Highest Stage Achieved: Exercise capacity: 1.0 METs Stress ECG Conclusion During lexiscan pt experinced mild SOA, head discomfort. No CP noted. No arrhythmias noted. No significant ST changes. Unremarkable lexiscan stress. Myoview images reported separately. Test Summary REST . . . . . . . Sitting REST 04:08 . . 99 . 149/ 77 . . Stage 1 01:00 . . 100 . . . . Stage 2 01:00 . . 106 . . . . Stage 3 01:00 . . 98 . 114/ 59 . . Stage 4 01:00 . . 99 . 130/ 54 . Stop exercise at 04:00 RECOVERY 01:00 . . 106 . . . . RECOVERY 02:00 . . 96 . 123/ 58 . . RECOVERY 03:00 . . 98 . 123/ 58 . . RECOVERY 03:35 . . 103 . 121/ 54 . . Electronically signed by : Rashid Donis MD 01/29/2022 10:27:17
--- NOTE | 2022-01-28 11:10 | CA_ITS ---
APPROVED REPORT EXAM: Comprehensive 2D, Doppler, and color-flow Echocardiogram Foreign Banknote Teller: VANESSA De Los Santos, RVS Ht: 5 ft 10 in Wt: 343lbs BSA: 2.63 BP: 111/48 mmHg Indications: Pre-op orthopedic, HTN, HLD, Obesity, DM, Ex-smoker Echo Enhancing Agent Comments: Technically limited exam due to extreme body habitus with acoustic impedence as well as patient intolerance to exam. 2D Dimensions LVDd 6.05 cm M: 4.2 - 5.9 LVEF (Visual) 48.30 % LVDs 4.55 cm M: 2.5 - 4.0 LA Volume 114.10 mL Aortic Root 3.56 cm M: 3.1 - 3.7 LA Volume Index 43.259220 mL/m2 (M/F) 16-34 Left Atrium 3.46 cm M: 3.0 - 4.0 LVOT 2.01 cm (M/F) 1.5-2.5 M-Mode Dimensions RVDd 2.10 cm (0.9-2.6) LA Diam 5.09 cm (1.9-4.0) LVDd 5.86 cm (3.5-5.7) Ao Diam 3.90 cm (2.0-3.7) LVDs 4.07 cm (3.5-5.7) IVSd 1.48 cm (0.6-1.1) PWd 1.48 cm (0.6-1.1) EF (Teich) 57.20% FS 30.50% EDV (Teich) 170.50 mL ESV (Teich) 72.90 mL LV Diastology E Decel Time 263.00 (160-240 msec) E/A Ratio 0.97 MED E' 7.50 (< 7 cm/sec) MED A' 14.20 cm/s E'/MED E' Ratio 12.37 (>14) LAT E' 11.30 (<10 cm/sec) LAT A' 13.70 cm/s E/LAT E' Ratio 8.21 (>14) Aortic Valve LVOT Max 133.00 (70-110 cm/s) LVOT VTI 26.06 cm AoV Peak Julio. 147.00 (50-130 cm/s) AO Peak GR. 8.70 mmHg AO Mean GR. 5.50 (<5 mmHg) AO VTI 30.94 (18-25 cm) MELISSA (VTI) 2.67 (2.5-4.5 cm2) Mitral Valve MV E Max Julio. 93.00 (40-130 cm/s) MV A Velocity 96.00 (40-130 cm/s) E/A Ratio 0.97 MV Decel. Time 263.00 (160-240 ms) MV PHT 77.00 ms Pulmonary Valve PV Peak Velocity 115.00 (50-150 cm/s) Left Ventricle Left atrium is mildly enlarged, left ventricle is normal size mild concentric left ventricular hypertrophy, estimated ejection fraction 55% with no regional wall motion abnormality, grade 1 diastolic dysfunction seen without tissue Doppler evidence of raise left atrial pressure. Right Ventricle Right atrium and right ventricle are normal size and contractility. Aortic Valve Aortic valve is minimally thickened and fibrosed there is no aortic stenosis or aortic insufficiency. Mitral Valve Mitral valve is grossly normal, there is trace mitral regurgitation. Tricuspid Valve Tricuspid valve grossly normal, there is trace tricuspid regurgitation, tricuspid regurgitation jet velocity is inadequate for calculation of the right ventricular systolic pressure. Pulmonic Valve Pulmonic valve is poorly visualized. Great Vessels Aortic root is normal size. Inferior vena cava is poorly visualized. Pericardium No significant pericardial effusion noted. Conclusion 1. Mildly enlarged left atrium, normal left ventricular size, mild concentric left ventricular hypertrophy, estimated ejection fraction 55% with no regional wall motion abnormality, grade 1 diastolic dysfunction seen without tissue Doppler evidence of raise left atrial pressure. 2. Trace mitral and tricuspid regurgitation. 3. No significant pericardial effusion . 4. Inferior vena cava is poorly visualized. Electronically signed by : Rashid Donis MD 01/29/2022 15:20:47
--- NOTE | 2022-01-28 11:39 | NM_ITS ---
APPROVED REPORT Exam: Nuclear Stress Test Indication: Abnormal EKG, SOB, COPD, Hx of [place], Obesity, HTN, DM, High cholesterol Patient Location: Outpatient Stress Tech: Lucina PACHECO Tech:ALLYSON Suarez RT(R)(N) Ht: 5 ft 10 in Wt: 346 lbs HR: 99 bpm BP: 149/77 mmHg BSA: 2.63 m2 TID: 1.11 BMI: 49.6 History: Abnormal EKG, SOB, COPD, Hx of [place], Obesity, HTN, DM, High cholesterol Procedure: Patient received a 0.4 mg of intravenous Lexiscan, resting heart rate 99 bpm, resting blood pressure 149/77 mmHg, with Lexiscan maximum heart rate achived was 107 bpm which is Less than 85 % of the maximum predicted heart rate and blood pressure was 149/77 mmHg. With Lexiscan, patient denied any complaint of chest pain. Electrocardiogram Resting electrocardiogram shows sinus rhythm, with Lexiscan there is less than 1.[address] segment depression noted from the baseline EKG. The EKG portion of the Lexiscan is nondiagnostic. Cardiac Stress and Resting SPECT Images: Cardiac Stress and Resting SPECT images were obtained using technetium 99m Myoview 31.4 mCi stress and 11.07 mCi at rest. Gated SPECT analysis of segmental wall motion and calculation of the ejection fraction also done. Prone images were not obtained. Cardiac stress and rest SPECT images show uniform myocardial activity without segmental perfusion abnormality, computer derived ejection fraction is 51% with no regional wall motion abnormality, right ventricle is normal size and contractility. Conclusion: 1. The EKG portion of the Lexiscan is nondiagnostic. 2. No scintigraphic evidence of reversible ischemia seen, compared to ejection fraction 51% with no regional wall motion abnormality, right ventricle is normal size and contractility. 3. Normal Lexiscan Myoview study. Electronically signed by : Rashid Donis MD 01/29/2022 10:29:58
== END ==
PROVIDERS: PCP Family Medicine; Visit Provider Physician Assistant
DX: E11.9 Type 2 diabetes mellitus without complications (principal); E78.5 Hyperlipidemia, unspecified; I10 Essential (primary) hypertension; J44.1 Chronic obstructive pulmonary disease with (acute) exacerbation; R06.00 Dyspnea, unspecified; Z01.810 Encounter for preprocedural cardiovascular examination; Z79.4 Long term (current) use of insulin
CPT/HCPCS: 78452; 93017; 93306

== ENCOUNTER 2022-01-29 15:42 | Emergency (ER) | payer MEDICARE, BC, SELFPAY ==
--- NOTE | 2022-01-29 16:03 | HMH.EDUTC ---
[facility] Disposition Clinical Impression: Shoulder separation Left shoulder pain Qualifiers: Chronicity: acute Qualified Code(s): M25.512 - Pain in left shoulder Disposition: Home, Self-Care Condition on Discharge: Good Instructions: DI for AC Joint Separation Additional Instructions: Rest the extremity, apply ice for 15 minutes as tolerated three or four times per day, Wear the huseyin wrap for compression, Elevate the extremity as tolerated while you are resting. Follow up with your orthopedic physician as discussed Follow up with your regular doctor. GO TO THE ER FOR ANY WORSENING SYMPTOMS Referrals: Catarino Ryan [Primary Care Provider] - Time of Disposition: 17:48 Medical Decision Making - Medical Records Medical records reviewed: No: I reviewed the patient's medical records. - Silvino Inquiry Pt receiving controlled substance: No Vital Signs: 01/29/22 16:09 Temperature 97.6 F Temperature Source Oral Pulse Rate [Left] 88 Respiratory Rate 16 Blood Pressure [Right Arm] 131/69 Blood Pressure Mean [Right Arm] 89 02 Sat by Pulse Oximetry 100 [facility] HPI - General Stated complaint: Pain Left Knee (no accident) Time Seen by Provider: 01/29/22 16:15 - History of Present Illness Provider Complaint: He is here with complaints of left shoulder pain that is worse with movement of the shoulder. He denies any known injury. He began having this pain around 3 days ago. He denies any chest pain, shortness of breath or other painful joints (besides his knees). He denies any fever or chills. - Related Data Home Medications Medication Instructions Recorded Confirmed Fluoxetine HCl [Prozac 20mg 20 mg PO DAILY 04/29/19 01/28/22 Capsule] Gabapentin 600 mg PO TID 04/29/19 01/28/22 Losartan Potassium [Cozaar 100mg 100 mg PO DAILY 04/29/19 01/28/22 Tablets] diphenhydrAMINE HCL [Benadryl 25mg 25 mg PO HS 04/29/19 02/05/21 Capsule] Amlodipine Besylate 5 mg PO DAILY 02/05/21 01/28/22 Insulin Regular, Human [Humulin R 55 unit SQ ACHS 02/05/21 01/28/22 U-500 Kwikpen] Lidocaine [Lidoderm 5% transdermal 1 pad TOPICAL DIRECTED 02/05/21 01/28/22 patch] albuterol sulfate 90 mcg/actuation 2 puff IH ONCE PRN gm 01/28/22 01/28/22 aerosol inhaler ezetimibe 10 mg tablet 10 mg PO DAILY tab 01/28/22 01/28/22 fluticasone propionate 50 1 spray NS DAILY PRN gm 01/28/22 01/28/22 mcg/actuation nasal spray,suspension oxycodone 5 mg tablet 5 mg PO Q6H PRN tab 01/28/22 01/28/22 pantoprazole 40 mg tablet,delayed 40 mg PO DAILY PRN 01/28/22 01/28/22 release tamsulosin 0.4 mg capsule 0.4 mg PO DAILY cap 01/28/22 01/28/22 Previous Rx's Medication Instructions Recorded Furosemide [Lasix 20mg tab] 20 mg PO DAILY PRN #10 tab 04/10/21 Allergies Allergy/AdvReac Type Severity Reaction Status Date / Time aspirin [ASPIRIN] Allergy Severe Anaphylaxis Verified 01/29/22 16:15 NSAIDS (Non-Steroidal Allergy Severe Anaphylaxis Verified 01/29/22 16:15 Anti-Inflamma [NSAIDS (NON-STEROIDAL ANTI-INFLAMMA] Sulfa (Sulfonamide Allergy Intermediate Rash Verified 01/29/22 16:15 Antibiotics) [SULFA (SULFONAMIDE ANTIBIOTICS)] [facility] History - Hepatitis A Screen Attestation statement:: This patient has been screened for Hepatitis A risk factors. I have reviewed the patient's past medical history: Yes 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: Reports:: Asthma, Diabetes Mellitus Type 1, Home Oxygen (PRN) - Social History Smoking Status: Former smoker Alcohol Intake: never Occupational Status: other Family Hx:: Cancer, Hypertension, Diabetes, Heart Attack ROS Obtained: Yes All systems reviewed & no additional complaints - Constitutional Constitutional: Denies chills, Denies fever(s) - Musculoskeletal Musculoskeletal: Reports as per HPI - Integumentary/Breasts Skin/Breast: Denies redness, Denies rash, Denies wounds - Neurologic Neurologic: Denies tingling/numbness/burning sensation
[2022-01-29 16:09] VITALS: BP 131/69; PULSE 88; RESP 16; TEMP 36.4; O2SAT 100; BMI 49.9
--- NOTE | 2022-01-29 16:10 | XR_ITS ---
FINAL REPORT CLINICAL HISTORY: posterior shoulder pain COMPARISON: 09/24/2020 FINDINGS: Left shoulder Three views were obtained. There is no acute fracture or dislocation. There is mild AC and glenohumeral joint degenerative change. There is mild widening of the AC joint, mild AC separation is not excluded. No soft tissue abnormality is identified. IMPRESSION: Possible mild AC separation. Reviewed, Interpreted and Dictated by Hung Mcintyre III, MD Transcribed by Sarah Maurer Authenticated and [facility]
[2022-01-29 17:41] VITALS: BP 131/69; PULSE 88; RESP 16; TEMP 36.4
== END 2022-01-29 17:42 | disposition home or self-care (01) ==
PROVIDERS: Emergency Provider Nurse Practitioner Family; PCP Family Medicine
DX: M25.512 Pain in left shoulder (principal); I10 Essential (primary) hypertension; E78.5 Hyperlipidemia, unspecified; E11.9 Type 2 diabetes mellitus without complications; J45.909 Unspecified asthma, uncomplicated; Z79.4 Long term (current) use of insulin; Z79.51 Long term (current) use of inhaled steroids; Z99.81 Dependence on supplemental oxygen; Z79.899 Other long term (current) drug therapy; Z88.2 Allergy status to sulfonamides; Z88.6 Allergy status to analgesic agent; Z87.891 Personal history of nicotine dependence; Z82.49 Family history of ischemic heart disease and other diseases of the circulatory system; Z83.3 Family history of diabetes mellitus; Z80.9 Family history of malignant neoplasm, unspecified
CPT/HCPCS: 73030; 99213; G0463

== ENCOUNTER 2022-02-07 18:41 | Emergency (ER) | payer MEDICARE, BC, SELFPAY ==
[2022-02-07 19:05] VITALS: BP 131/62; PULSE 96; RESP 21; TEMP 36.5; O2SAT 98; BMI 48.4
--- NOTE | 2022-02-07 19:24 | HMH.EDUTC ---
[facility] [place]ression: Shingles Qualifiers: Herpes zoster complications: without complications Qualified Code(s): B02.9 - Zoster without complications Disposition: Home, Self-Care Condition on Discharge: Good Instructions: DI for Shingles, Shingles Additional Instructions: Take medication as prescribed Over the counter Calamine lotion may help with itching and drying of rash Follow up with Family Doctor if no improvement or any worsening of symptoms Return if needed Straight to ER if any life threatening symptoms Prescriptions: Valacyclovir HCl [Valacyclovir] 1,000 mg PO Q8H 7 Days #21 tab Transmission Status: Pending to [facility] Referrals: Catarino Ryan [Primary Care Provider] - As needed Time of Disposition: 19:43 Medical Decision Making - Silvino Inquiry Pt receiving controlled substance: No Silvino was queried for this patient: No Vital Signs: 02/07/22 19:05 Temperature 97.7 F Temperature Source Oral Pulse Rate [Right Brachial] 96 H Respiratory Rate 21 Blood Pressure [Right Arm] 131/62 Blood Pressure Mean [Right Arm] 85 Blood Pressure Source [Right Arm] Automatic Cuff Blood Pressure Position [Right Arm] Sitting 02 Sat by Pulse Oximetry 98 Oxygen Delivery Method Room Air Medical Decision Narrative: medication discussed and dosed per pharmacy [facility] [place] - General Stated complaint: poss shingles left arm Time Seen by Provider: 02/07/22 19:24 Mode of Arrival: Ambulatory Source of Information: Patient Limitations: No Limitations Description of Symptoms (Recalled from Triage Doc. by RN): PATIENT C/O POSSIBLE SHINGLES TO LEFT SIDE OF BACK X 1 WEEK HEENT Symptoms (Recalled from RN notes): No Resp Symptoms (Recalled from RN notes): No Skin Symptoms (Recalled from RN notes): Yes MS Symptoms (Recalled from RN notes): No Functional Status (Recalled from RN notes): WNL - History of Present Illness Provider Complaint: Patient states he recently had Knee replacement surgery and that he noticed had sore bump like area on the middle of the left side of his back that would itch and burn States that now rash has spread on his left side under his arm States that area antonio, hurts and itches but pain when he scratches it States that he thinks he may have shingles - Related Data Home Medications Medication Instructions Recorded Confirmed Fluoxetine HCl [Prozac 20mg 20 mg PO DAILY 04/29/19 01/28/22 Capsule] Gabapentin 600 mg PO TID 04/29/19 01/28/22 Losartan Potassium [Cozaar 100mg 100 mg PO DAILY 04/29/19 01/28/22 Tablets] diphenhydrAMINE HCL [Benadryl 25mg 25 mg PO HS 04/29/19 02/05/21 Capsule] Amlodipine Besylate 5 mg PO DAILY 02/05/21 01/28/22 Insulin Regular, Human [Humulin R 55 unit SQ ACHS 02/05/21 01/28/22 U-500 Kwikpen] Lidocaine [Lidoderm 5% transdermal 1 pad TOPICAL DIRECTED 02/05/21 01/28/22 patch] albuterol sulfate 90 mcg/actuation 2 puff IH ONCE PRN gm 01/28/22 01/28/22 aerosol inhaler ezetimibe 10 mg tablet 10 mg PO DAILY tab 01/28/22 01/28/22 fluticasone propionate 50 1 spray NS DAILY PRN gm 01/28/22 01/28/22 mcg/actuation nasal spray,suspension oxycodone 5 mg tablet 5 mg PO Q6H PRN tab 01/28/22 01/28/22 pantoprazole 40 mg tablet,delayed 40 mg PO DAILY PRN 01/28/22 01/28/22 release tamsulosin 0.4 mg capsule 0.4 mg PO DAILY cap 01/28/22 01/28/22 Previous Rx's Medication Instructions Recorded Furosemide [Lasix 20mg tab] 20 mg PO DAILY PRN #10 tab 04/10/21 Valacyclovir HCl [Valacyclovir] 1,000 mg PO Q8H 7 Days #21 tab 02/07/22 Allergies Allergy/AdvReac Type Severity Reaction Status Date / Time aspirin [ASPIRIN] Allergy Severe Anaphylaxis Verified 01/29/22 16:15 NSAIDS (Non-Steroidal Allergy Severe Anaphylaxis Verified 01/29/22 16:15 Anti-Inflamma [NSAIDS (NON-STEROIDAL ANTI-INFLAMMA] Sulfa (Sulfonamide Allergy Intermediate Rash Verified 01/29/22 16:15 Antibiotics) [SULFA (SULFONAMIDE
[2022-02-07 19:59] VITALS: BP 131/62; PULSE 96; RESP 21; TEMP 36.5; O2SAT 98
== END 2022-02-07 20:03 | disposition home or self-care (01) ==
PROVIDERS: Emergency Provider Nurse Practitioner; PCP Family Medicine
DX: B02.9 Zoster without complications (principal)
CPT/HCPCS: 99212; G0463

== ENCOUNTER 2022-04-09 15:00 | Outpatient (RCR) | payer MEDICARE, BC, SELFPAY | END 2022-04-09 15:05 | disposition home or self-care (01) | LOC: PT 15:00 | PROVIDERS: Visit Provider Orthopaedic Surgery | DX: M25.562 Pain in left knee (principal); Z96.652 Presence of left artificial knee joint | CPT/HCPCS: 97010; 97110; 97140; 97163 ==

== ENCOUNTER 2022-05-29 14:29 | Inpatient (IN) | payer MEDICARE, BC, SELFPAY ==
[2022-05-29] VITALS (26 sets, daily range): BP systolic 94–176; BP diastolic 56–95; PULSE 54–86; RESP 18–20; TEMP 36.4–36.9; O2SAT 88–98; BMI 44.0; BMI 47.8
--- NOTE | 2022-05-29 14:30 | PC.NURSE ---
STEMI alert activated
--- NOTE | 2022-05-29 14:30 | PC.NURSE ---
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
--- NOTE | 2022-05-29 14:38 | ECG_ITS ---
APPROVED REPORT Exam: Resting ECG HR:50 bpm ECG Measurements Heart Rate 50 AXES QRSd 152 QRS 66 QT 449 T 88 QTc 422 [address] RHYTHM [address] ELEVATION, CONSIDER INFERIOR INJURY [MARKED ST ELEVATION W/O NORMALLY INFLECTED T-WAVE IN II/aVF] ACUTE [place] UNCONFIRMED REPORT Electronically signed by : Blaise Bundy MD 05/31/2022 20:03:39
--- NOTE | 2022-05-29 14:41 | XR_ITS ---
PROCEDURE INFORMATION: Exam: XR Chest Exam date and time: 05/29/2022 2:53 PM Age: 67 years old Clinical indication: Angina and shortness of breath; Additional info: Stemi alert portable TECHNIQUE: Imaging protocol: Radiologic exam of the chest. Views: 1 view. COMPARISON: CR XR CHEST AP 04/16/2021 3:25 PM FINDINGS: Tubes, catheters and devices: Several telemetry leads and defibrillator pads projected over the chest wall Lungs: Lungs are hypoaerated. No evidence of pneumonia or interstitial edema. Pleural spaces: Unremarkable. No pleural effusion. No pneumothorax. Heart/Mediastinum: There appears to be cardiomegaly. However, this is accentuated by hypoaerated lungs and portable technique. Bones/joints: Unremarkable. IMPRESSION: No evidence of pneumonia or interstitial edema.
--- NOTE | 2022-05-29 14:47 | IR_ITS ---
APPROVED REPORT Patient Location: [facility] Operator: ALLYSON Hylton RT (R) PROCEDURES Left heart catheterization Left ventriculogram Selective coronary angiogram Percutaneous thrombectomy to the proximal dominant right coronary followed by drug-eluting stent deployment to the proximal mid dominant right coronary Drug-eluting stent deployment to the mid LAD INDICATION Acute inferior lateral right ventricular and posterior ST elevation myocardial infarction, Coronary artery disease Informed consent was obtained prior to the procedure. COMPLICATIONS None Estimated Blood Loss: Less than 10 mls TECHNIQUE One percent lidocaine used to anesthetize the right anterior aspect of the wrist. The right radial artery was accessed via the Seldinger technique. A 6 Amharic sheath was placed in the right radial artery. 2.5 mg of verapamil, 800 mcg of nitroglycerin, 1mg Lidocaine and 5000 U Heparin were given through the arterial sheath. The papa catheter was also used to perform right selective coronary angiography therapeutic heparin was administered. The guide catheter was left in the right coronary followed by a Choice PT extra-support wire. A penNeronote mechanical aspiration catheter was used to retrieve the large thrombus and restore RODRIGO-3 flow. A 5 mm x 26 mm resolute Lisandro stent was deployed at 18 digna reducing the critical stenosis to 0%. RODRIGO 0 flow was present before the procedure with RODRIGO-3 flow at the end of the procedure. Following this the guide catheter was used to perform LAD and circumflex artery coronary angiography. The Choice PT extra-support wire was placed into the LAD and a 3.5 x 12 mm resolute [place] stent was deployed in the mid LAD at 18 digna reducing the focal severe stenosis to 0%. RODRIGO-3 flow was present before and after the procedure. At the end of procedure the Poppa catheter was used to perform left heart catheterization and left ventriculogram. The end of this procedure repeat right coronary angiography was performed. The apparatus was removed the sheath was removed and hemostasis was achieved using TR banding patient was transferred to the postop putting in stable condition ANGIOGRAPHIC RESULTS The left main artery Normal The left anterior descending artery Has a proximal eccentric 50 to 60% stenosis followed by a focal mid vessel 80% stenosis The circumflex artery Is nondominant and has proximal and mid vessel 20 to 30% stenoses The right coronary artery Is a massively large dominant vessel and initially proximally thrombosed. Following revascularization the right coronary was widely patent into a large posterior descending artery. A large posterior lateral branch had distal thrombus however flow was still being provided distally into the posterior lateral branch The PRETTY ventriculogram reveals Dilated ventricle ejection fraction 40% The left ventricular end-diastolic pressure 20 to [address] elevation myocardial infarction in the proximal dominant right coronary is described above with successful mechanical thrombectomy followed by drug-eluting stent deployment reducing the 100% occlusion to 0% Persistent thrombus in the distal posterior lateral ventricular branch Moderate to severe stenosis in the proximal LAD with severe stenosis in the mid LAD followed by drug-eluting stenting to the mid LAD reducing the severe stenosis to 0% Dilated ventricle with reduced ejection fraction Elevated LVEDP PLAN 1. Brilinta 90 twice daily plus aspirin 81 mg daily 2. LDL 55 to be achieved with high intensity statin 3. Start low-dose bisoprolol and MARITO inhibitor's or ARB 4. Patient may benefit from CPAP or BiPAP usage 5. Continued supportive care with
--- NOTE | 2022-05-29 14:48 | HMH.EDGENADL ---
Discharge Plan Disposition Patient Disposition: Admitted As Inpatient Condition: Critical Clinical Impressions Clinical Impression: ST elevation (STEMI) myocardial infarction, CHB (complete heart block) Discharge ED Provider: Galdino Rashid Adult HPI General Chief complaint: Chest Pain Stated complaint: chest pain Time Seen by Provider: 05/29/22 14:29 Mode of Arrival: EMS Source of Information: Patient Limitations: No Limitations Description of Symptoms (Recalled from ER Triage Doc. by RN): pt to ed via ems foor confimred STEMI. pt reports mis sternal chest pain that is stationary. pt diaphoretic on arrivald History of Present Illness HPI narrative: Patient brought in by ambulance for chest pain. EKG performed by EMS during transport shows a STEMI, inferior lateral. EKG was transmitted to Dr. Sofia while the patient was being transported here by ambulance and STEMI alert initiated, Supervisor Pairing And Inspecting team activated. Dr. Sofia requests heparin 100 units/kg, Brilinta, and aspirin upon arrival. States he has anterior chest pain that started 30 minutes prior to arrival. The patient took 2 low-dose aspirin at home prior to transport although he says he is allergic to aspirin and aspirin causes shortness of breath. He is not currently having shortness of breath. He was given morphine and nitroglycerin during transport, currently still rates his pain 7/10. Pain has been associated with sweatiness and some nausea without vomiting, no radiation. States he has a prior history of a MO in his 20s due to medication and was given intravenous epinephrine . No stents, no prior CABG. He has diabetes, hypertension, hyperlipidemia, former smoker. States he has COPD. Related Data Home Medications Medication Instructions Recorded Confirmed diphenhydramine HCl 25 mg capsule 25 mg PO HS SLEEP 04/29/19 02/05/21 fluoxetine 20 mg capsule 20 mg PO DAILY Depression 04/29/19 01/28/22 gabapentin 600 mg tablet 600 mg PO TID NEUROPATHY 04/29/19 01/28/22 losartan 100 mg tablet 100 mg PO DAILY Hypertension 04/29/19 01/28/22 amlodipine 5 mg tablet 5 mg PO DAILY htn 02/05/21 01/28/22 insulin regular hum U-500 conc 500 55 unit SQ ACHS Diabetes 02/05/21 01/28/22 unit/mL(3 mL) subcut pen lidocaine 5 % topical patch 1 pad topical DIRECTED Pain 02/05/21 01/28/22 albuterol sulfate 90 mcg/actuation 2 puff inhalation Q6HP PRN 01/28/22 05/29/22 aerosol inhaler shortness of breath ezetimibe 10 mg tablet 10 mg PO DAILY 01/28/22 01/28/22 fluticasone propionate 50 1 spray intranasal DAILY PRN 01/28/22 01/28/22 mcg/actuation nasal spray,suspension oxycodone 5 mg tablet 5 mg PO Q6H PRN 01/28/22 01/28/22 pantoprazole 40 mg tablet,delayed 40 mg PO DAILY PRN GERD 01/28/22 01/28/22 release tamsulosin 0.4 mg capsule 0.4 mg PO DAILY 01/28/22 01/28/22 Previous Rx's Medication Instructions Recorded furosemide 20 mg tablet 20 mg PO DAILY PRN fluid retention 04/10/21 #10 tabs valacyclovir 1 gram tablet 1,000 mg PO Q8H 7 days #21 tabs 02/07/22 Allergies Allergy/AdvReac Type Severity Reaction Status Date / Time aspirin [ASPIRIN] Allergy Severe Anaphylaxis Verified 01/29/22 16:15 NSAIDS (Non-Steroidal Allergy Severe Anaphylaxis Verified 01/29/22 16:15 Anti-Inflamma [NSAIDS (NON-STEROIDAL ANTI-INFLAMMA] Sulfa (Sulfonamide Allergy Intermediate Rash Verified 01/29/22 16:15 Antibiotics) [SULFA (SULFONAMIDE ANTIBIOTICS)] [facility] Disclaimer: The information contained in this section may have been updated after the patient was seen, as this information can be updated by other users. 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 (Updated 05/29/22 @ 16:51 by Sin Ledezma MD) BMI 40.0-44.9, adult COPD (chronic obstructive pulmonary disease) Diabetes Encounter for pre-operative cardiovascular clearance HLD (hyperlipidemia) HTN (hypertension) SARAI (obstructive sleep apnea) Shingles Surgical History (Updated 05/29/22 @ 16:36 by Sin Vallejo
--- NOTE | 2022-05-29 14:48 | PC.NURSE ---
ems reports 4mg of morphine given in route. pt states he took 162mg of aspirin at home, but reports he is allergic to aspirin. additional dose held by MD request.
[2022-05-29 14:51] LABS: Basophils # 0.1 K/mm3 (0-0.2); Basophils % 0.7 % (0.1-2.0); Eosinophils # 0.4 K/mm3 (0.0-0.4); Eosinophils % 3.5 % (0.1-12.0); Hematocrit 44.1 % (42.0-52.0); Lymphocytes # 3.7 K/mm3 (0.7-4.5); Lymphocytes % 31.6 % (10-50); Mean Corpuscular HGB Conc 31.8 g/dL (31.8-35.4); Mean Corpuscular Hemoglobin 28.5 pg (27.0-31.2); Mean Corpuscular Volume 89.5 fl (80-94); Mean Platelet Volume 8.8 fl (7.4-10.4); Monocytes # 0.6 K/mm3 (0.1-1.0); Neutrophils # 6.9 K/mm3 (1.8-7.8); Neutrophils % 59.3 % (37.0-80.0); Platelet Count 344 K/mm3 (142-424); Red Blood Count 4.93 M/mm3 (4.60-6.20); Red Cell Distribution Width 15.5 % (11.5-17.5); White Blood Count 11.7 K/mm3 (4.8-10.8)
--- NOTE | 2022-05-29 14:51 | PC.NURSE ---
pt to laboratory analyst per Olga Valenzuela and Shayla
[2022-05-29 14:53] LABS: Chloride 105 mmol/L (98-107)
[2022-05-29 14:54] LABS: Sodium 140 mmol/L (136-145)
[2022-05-29 14:56] LABS: Blood Urea Nitrogen 23 mg/dl (9-20); Creatinine Clearance Estimated 71 mL/min (50-200); Estimated Glomerular Filt Rate 67 ml/min (>60); GFR (African American) 81 ML/MIN (>60)
[2022-05-29 14:57] LABS: Calcium 9.4 mg/dl (8.4-10.2); Carbon Dioxide 25 mmol/L (22.0-30.0); Glucose 323 mg/dl (74-100)
[2022-05-29 15:01] LABS: PTT Heparin (inpatient only) 24.5 Seconds (23.6-34.0)
[2022-05-29 15:10] LABS: Troponin I < 0.01 ng/ml (0.00-0.034)
[2022-05-29 15:42] LABS: Coronavirus 19, PCR Not Detected (NotDetected); Influenza A, PCR Not Detected (NotDetected); Influenza B, PCR Not Detected (NotDetected)
[2022-05-29 15:45] LABS: CATHL Activated Clotting Time > 400 SEC (74-125)
--- NOTE | 2022-05-29 16:22 | EXP.HP ---
History of Present Illness *Admission Date: 05/29/22 *Reason for visit:: Chief complaint: Chest pain *History of present illness: This is a 67-year-old male that presents to [facility] emergency department via EMS for chest pain. His past medical history significant for diabetes, COPD, SARAI and noncompliant with CPAP, hypertension and shingles. He reports a preoperative clearance in January of this year with a stress test and echocardiogram identified normal ejection fraction. He underwent a left total knee replacement in January with normal postoperative course and no cardiac symptomatology. He reports over the past week he has experienced intermittent chest pain characterizes pressure and lasting a few seconds to a minute. He identified that his symptomatology increased with exertion. Today he experienced increased chest pressure that radiated to his arms causing diaphoresis and associated nausea. His family called EMS and in route ECG identified anterior inferior infarct confirmed upon arrival to the ED. 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 Currently he reports that he is feeling better. [facility] Disclaimer: The information contained in this section may have been updated after the patient was seen, as this information can be updated by other users. 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 (Updated 05/29/22 @ 16:51 by Sin Ledezma MD) BMI 40.0-44.9, adult COPD (chronic obstructive pulmonary disease) Diabetes Encounter for pre-operative cardiovascular clearance HLD (hyperlipidemia) HTN (hypertension) SARAI (obstructive sleep apnea) Shingles Surgical History (Updated 05/29/22 @ 16:36 by Sin Ledezma MD) H/O colonoscopy History of total left knee replacement S/P cervical spinal fusion S/P left rotator cuff repair Family History (Updated 05/29/22 @ 16:38 by Sin Ledezma MD) Mother Pancreatic cancer Father COPD (chronic obstructive pulmonary disease) Social History Smoking Status: Former smoker alcohol intake: never current occupational status: other Travel in the last 8 weeks: None Review of Systems Review of Systems Review of systems:: pertinent systems reviewed and negative unless documented below *Cardiovascular Cardiovascular: Reports chest pain, Reports chest pain at rest, Reports chest pain with activity, Reports dyspnea and Reports dyspnea on exertion *Respiratory Respiratory: Reports dyspnea and Reports dyspnea on exertion Meds Home Medications and Allergies Home Medications Medication Instructions Recorded Confirmed Type diphenhydramine HCl 25 mg capsule 25 mg PO HS SLEEP 04/29/19 02/05/21 History fluoxetine 20 mg capsule 20 mg PO DAILY Depression 04/29/19 01/28/22 History gabapentin 600 mg tablet 600 mg PO TID NEUROPATHY 04/29/19 01/28/22 History losartan 100 mg tablet 100 mg PO DAILY Hypertension 04/29/19 01/28/22 History amlodipine 5 mg tablet 5 mg PO DAILY htn 02/05/21 01/28/22 History insulin regular hum U-500 conc 500 55 unit SQ ACHS Diabetes 02/05/21 01/28/22 History unit/mL(3 mL) subcut pen lidocaine 5 % topical patch 1 pad topical DIRECTED Pain 02/05/21 01/28/22 History furosemide 20 mg tablet 20 mg PO DAILY PRN fluid retention 04/10/21 01/28/22 Rx #10 tabs albuterol sulfate 90 mcg/actuation 2 puff inhalation ONCE PRN 01/28/22 01/28/22 History aerosol inhaler ezetimibe 10 mg tablet 10 mg PO DAILY 01/28/22 01/28/22 History fluticasone propionate 50 1 spray intranasal DAILY PRN 01/28/22 01/28/22 History mcg/actuation nasal spray,suspension oxycodone 5 mg tablet 5 mg PO Q6H PRN 01/28/22 01/28/22 History pantoprazole 40 mg tablet,delayed 40 mg PO DAILY PRN GERD 01/28/22 01/28/22 History release tamsulosin 0.4 mg capsule 0.4 mg PO DAILY 01/28/22 01/28/22 History valacyclovir 1 gram tablet 1,
--- NOTE | 2022-05-29 16:45 | PC.NURSE ---
late entry: 1416 notified by ER staff that quality control lab technician staff needed to be called in call returned by: Gudelia Staton 1417 Tayler Ghosh 1416 Bhavna Fleming 1412
[2022-05-29 17:54] LABS: Microscopic, Urine URINE MICROSCOPIC (MICROSCOPIC)
[2022-05-29 18:14] LABS: Appearance,Urine CLEAR (Clear); Bilirubin,Urine Negative (Negative); Blood, Urine 2+ (Negative); Color,Urine STRAW (Yellow); Glucose,Urine (UA) Negative (Negative); Ketones,Urine Negative (Negative); Leukocyte Esterase,Urine Negative (Negative); Nitrate,Urine Negative (Negative); PH,Urine 6.5 (5.0-8.5); Protein,Urine Negative (Negative); Specific Gravity, Urine 1.015 (1.005-1.030); Urobilinogen,Urine 0.2 EU/dl (0.2)
[2022-05-29 18:33] LABS: RBC,Urine Occasional #/hpf (0-3)
[2022-05-30] VITALS (14 sets, daily range): BP systolic 110–155; BP diastolic 72–93; PULSE 60–84; RESP 16–20; TEMP 36.3–36.8; O2SAT 93–98
--- NOTE | 2022-05-30 04:40 | PC.NURSE ---
Pt has slept at intervals this shift. Continues to have discomfort to chest with rating of 3-5. Medicated per aug. (R) radial cath site with DSG in place. C/D/I. No hematoma noted. Pt has ambulated with standby assist to BR. Tolerated well. NSR with BBB on telelmetry. VSS. Call light within reach. Family at bedside.
--- NOTE | 2022-05-30 06:00 | XR_ITS ---
PROCEDURE INFORMATION: Exam: XR Chest Exam date and time: 05/30/2022 6:14 AM Age: 67 years old Clinical indication: Pain; Chest pressure; Prior surgery; Surgery date: Post-operative (0-2 days); Surgery type: Stemi TECHNIQUE: Imaging protocol: Radiologic exam of the chest. Views: 1 view. COMPARISON: CR XR CHEST PORTABLE 05/29/2022 2:53 PM FINDINGS: Lungs: No significant airspace disease. Pleural spaces: No pleural effusion. Heart/Mediastinum: Cardiomegaly. Bones/joints: Postoperative change in the cervical spine. IMPRESSION: Cardiomegaly. Cardiomegaly, without acute airspace or pleural disease.
[2022-05-30 08:12] LABS: Chloride 103 mmol/L (98-107); Potassium 3.8 mmoL/L (3.5-5.1); Sodium 138 mmol/L (136-145)
[2022-05-30 08:14] LABS: Alanine Aminotransferase 51 U/L (12-78); Aspartate Amino Transferase 297 U/L (17-59); Blood Urea Nitrogen 20 mg/dl (9-20); Creatinine Clearance Estimated 71 mL/min (50-200); Estimated Glomerular Filt Rate 84 ml/min (>60); GFR (African American) 102 ML/MIN (>60)
[2022-05-30 08:15] LABS: Albumin/Globulin Ratio 1.6 (1.1-1.8); Alkaline Phosphatase 76 U/L (38-126); Anion Gap 13.8 mEq/L (5-15); Bilirubin,Total 0.4 mg/dl (0.2-1.3); Calcium 8.7 mg/dl (8.4-10.2); Carbon Dioxide 25 mmol/L (22.0-30.0); Chol/HDL Ratio 4.7 (1-3.5); Cholesterol 156 mg/dl (140-200); Globulin 2.5 g/dL (1.3-3.2); Glucose 271 mg/dl (74-100); HDL Cholesterol 33 mg/dl (40-60); Magnesium 1.7 mg/dl (1.6-2.3); Total Protein,Serum 6.5 g/dl (6.3-8.2); Triglycerides 183 mg/dl (30-150); VLDL Cholesterol 37 mg/dL (0-40)
[2022-05-30 08:17] LABS: Basophils # 0.1 K/mm3 (0-0.2); Basophils % 0.4 % (0.1-2.0); Eosinophils # 0.3 K/mm3 (0.0-0.4); Eosinophils % 2.2 % (0.1-12.0); Hematocrit 41.5 % (42.0-52.0); Hemoglobin 13.1 g/dL (14.1-18.0); Lymphocytes # 2.3 K/mm3 (0.7-4.5); Lymphocytes % 18.4 % (10-50); Mean Corpuscular HGB Conc 31.6 g/dL (31.8-35.4); Mean Corpuscular Hemoglobin 28.3 pg (27.0-31.2); Mean Corpuscular Volume 89.6 fl (80-94); Mean Platelet Volume 8.6 fl (7.4-10.4); Monocytes # 0.7 K/mm3 (0.1-1.0); Monocytes % 5.2 % (1.7-9.3); Neutrophils # 9.3 K/mm3 (1.8-7.8); Neutrophils % 73.7 % (37.0-80.0); Platelet Count 239 K/mm3 (142-424); Red Blood Count 4.63 M/mm3 (4.60-6.20); Red Cell Distribution Width 15.6 % (11.5-17.5); White Blood Count 12.7 K/mm3 (4.8-10.8)
[2022-05-30 08:25] LABS: INR 0.95 (0.9-1.1); Prothrombin Time 10.3 seconds (10.1-12.5)
[2022-05-30 08:26] LABS: Direct LDL Cholesterol 84.48 mg/dL (100-129)
[2022-05-30 09:13] LABS: Hemoglobin A1C 7.7 % (4.0-6.0)
--- NOTE | 2022-05-30 09:55 | HMH.PHAINT1 ---
Pharmacy Intervention Comments: MEDICATION RECONCILIATION COMPLETED ON PATIENT USING EXTERNAL FILL HISTORY FROM PHARMACY. -ANDRE CORONA, TYRELD
--- NOTE | 2022-05-30 15:54 | EXP.PN ---
Subjective *Date: 05/30/22 *Time: 15:54 Interval history: Date of service May 30, 2022 I am accompanied by the patient's nurse this morning for his evaluation. She reports that he remains afebrile with stable vital signs and saturating appropriately on 2 L of oxygen via nasal cannula. The patient is requesting something for allergies. He describes an itchy nose. He has taken Claritin in the past with no problems. He is also asking that his home Neurontin to be restarted. He reports no further chest pain. Exam Data for Last 24 hours Vital signs and Labs for Last 24 Hours: Temp Pulse Resp BP Pulse Ox FiO2 97.7 F 70 18 120/75 95 28 05/30/22 12:00 05/30/22 14:00 05/30/22 14:00 05/30/22 14:00 05/30/22 14:00 05/29/22 18:01 Laboratory Results - last 24 hr 05/29/22 14:40: SARS-CoV-2 (PCR) Not detected, Influenza A Untype (PCR) Not detected, Influenza Type B (PCR) Not detected 05/29/22 17:47: Urine Color Straw, Urine Appearance Clear, Urine pH 6.5, Ur Specific [place] 1.015, Urine Protein Negative, Urine Glucose (UA) Negative, Urine Ketones Negative, Urine Blood 2+, Urine Nitrate Negative, Urine Bilirubin Negative, Urine Urobilinogen 0.2, Ur Leukocyte Esterase Negative, Urine RBC Occasional 05/30/22 07:33: WBC 12.7 H, RBC 4.63, Hgb 13.1 L, Hct 41.5 L, MCV 89.6, MCH 28.3, MCHC 31.6 L, RDW 15.6, Plt Count 239 D, MPV 8.6, Neut % (Auto) 73.7, Lymph % (Auto) 18.4, [place] % (Auto) 5.2, Eos % (Auto) 2.2, Baso % (Auto) 0.4, Neut # (Auto) 9.3 H, Lymph # (Auto) 2.3, Wal[place] # (Auto) 0.7, Eos # (Auto) 0.3, Baso # (Auto) 0.1 05/30/22 07:33: PT 10.3, INR 0.95 05/30/22 07:33: Sodium 138, Potassium 3.8, Chloride 103, Carbon Dioxide 25, Anion Gap 13.8, BUN 20, Creatinine 0.90, Estimated Creat Clear 71, Estimated GFR 84, Est GFR ( Amer) 102 D, Glucose 271 H, Calcium 8.7, Magnesium 1.7, Total Bilirubin 0.4, AST 297 H, ALT 51, Alkaline Phosphatase 76, Total Protein 6.5, Albumin 4.0, Globulin 2.5, Albumin/Globulin Ratio 1.6, Triglycerides 183 H, Cholesterol 156, LDL Cholesterol Direct 84.48 L, VLDL Cholesterol 37, HDL Cholesterol 33 L, Cholesterol/HDL Ratio 4.7 H 05/30/22 07:33: Hemoglobin A1c 7.7 H I & O for Last 24 hours: Intake & Output 05/27/22 05/28/22 05/29/22 05/30/22 23:59 23:59 23:59 23:59 Intake Total 480 / 480 1723 / 1723 Output Total 700 / 700 0 / 0 Balance -220 / -220 1723 / 1723 Weight 146.9 kg Constitutional Constitutional: no acute distress, morbidly obese and cooperative *Routine HEENT Exam Head: Present normocephalic Eye: Present EOMI and PERRL ENT: Present mucous membranes moist *Routine Neck Exam Neck: Present supple; Absent JVD or lymphadenopathy *Routine Respiratory Exam Respiratory: Present CTA bilaterally, normal respiratory effort and symmetric chest movement *Routine Cardiovascular Exam Cardiovascular: Present RRR; Absent murmur *Routine Abdominal Exam Abdominal: Present soft and normoactive bowel sounds; Absent tenderness *Routine Extremities Exam Extremities: Present pulses intact and normal capillary refill; Absent cyanosis, clubbing or edema *Routine Skin Exam Skin: Present warm; Absent rash *Routine Neurological Exam Neurological: Present alert, oriented X3, moving all extremities, normal tone, vision grossly intact, hearing grossly intact and normal speech; Absent sensory deficit or motor deficit Routine Psychiatric Exam Psychiatric: Present normal affect, normal thought process, cooperative, good insight and good judgment Assessment and Plan *Assessment and plan (1) ST elevation (STEMI) myocardial infarction: Status: Acute Category: Medical Code(s): I21.3 - ST elevation (STEMI) myocardial infarction of unspecified site (2) Diabetes: Status: Acute Category: Medical Code(s): E11.9 - Type 2 diabetes mellitus without complications (3) HTN (hypertension): Status: Acute Qualifiers: Hypertension type: unspecified Qualified
--- NOTE | 2022-05-30 17:16 | PC.NURSE ---
pt has been up to chair for part of shift, has not complained of pain this shift, but has complained of being achy, HR 70-75, SBP 110-129, has remained on 2L NC t/o shift, ambulating to BR with SB assist, right radial cath site with dressing in place, C/D/I
[2022-05-31] VITALS: BP 148/77; PULSE 70; PULSE 75; RESP 20; TEMP 36.6; O2SAT 95
[2022-05-31 04:00] VITALS: BP 144/77; PULSE 70; PULSE 76; RESP 18; TEMP 36.4; O2SAT 94
--- NOTE | 2022-05-31 04:06 | PC.NURSE ---
No acute changes this shift. Pt denies any discomfort to chest. No soa. (R) radial cath site C/D/I. Small bruising noted. VSS. Pt remains on 2L O2 NC. Pt states that he uses 2L O2 at home prn. He has ambulated in hallway this shift. Voids per BR. . No BM this shift. Sinus with BBB on telemetry. Call light within reach. Family at bedside.
--- NOTE | 2022-05-31 06:00 | CA_ITS ---
APPROVED REPORT EXAM: Comprehensive 2D, Doppler, and color-flow Echocardiogram County Program Technician: Sobeida Tineo RVT Ht: 5 ft 10 in Wt: 343lbs BSA: 2.63 BP: 148/77 mmHg Indications: STEMI,COPD,HTN,EX SMOKER,OBESITY,HLD,DM TDS-PT BODY HABITUS 2D Dimensions LVOT 2.46 cm (M/F) 1.5-2.5 LA Volume 65.90 mL LA Volume Index 25.06 mL/m2 (M/F) 16-34 M-Mode Dimensions RVDd 3.80 cm (0.9-2.6) LA Diam 5.03 cm (1.9-4.0) LVDd 4.83 cm (3.5-5.7) Ao Diam 3.76 cm (2.0-3.7) LVDs 3.58 cm (3.5-5.7) IVSd 1.16 cm (0.6-1.1) PWd 0.94 cm (0.6-1.1) EF (Teich) 50.80% FS 25.90% EDV (Teich) 109.10 mL TAPSE 2.02 (<1.7) ESV (Teich) 53.70 mL LV Diastology E Decel Time 240.00 (160-240 msec) E/A Ratio 0.7 MED E' 6.20 (< 7 cm/sec) E'/MED E' Ratio 9.53 (>14) LAT E' 9.30 (<10 cm/sec) E/LAT E' Ratio 6.35 (>14) Aortic Valve AO Peak GR. 6.30 mmHg Mitral Valve MV E Max Julio. 59.00 (40-130 cm/s) MV A Velocity 85.00 (40-130 cm/s) E/A Ratio 0.70 MV Decel. Time 240.00 (160-240 ms) MV PHT 70.00 ms Pulmonary Valve PV Peak Velocity 81.00 (50-150 cm/s) Tricuspid Valve TR P. Velocity 210.00 cm/s RAP Estimate 10.00 mmHg RVSP 27.60 mmHg Left Ventricle Technically difficult study because of the patient factors and poor acoustic windows. Left atrium is mildly enlarged, left ventricle is normal size mild concentric left ventricular hypertrophy, estimated ejection fraction 50%, there is mild inferior wall hypokinesis. Grade 1 diastolic dysfunction seen without tissue Doppler evidence of raise left atrial pressure. Right Ventricle Right atrium and right ventricle are mildly enlarged with normal contractility. Aortic Valve Aortic valve is minimally thickened and fibrosed there is no aortic stenosis or aortic insufficiency. Mitral Valve Mitral valve is grossly normal, there is mild mitral regurgitation. Tricuspid Valve Tricuspid valve grossly normal, there is mild tricuspid regurgitation, tricuspid regurgitation jet velocity is inadequate for calculation of the right ventricular systolic pressure. Pulmonic Valve Pulmonic valve is poorly visualized. Great Vessels Aortic root is normal size. Inferior vena cava is poorly visualized. Pericardium No significant pericardial effusion noted. Conclusion 1. Technically difficult study because of the patient factors and poor acoustic windows. Normal left ventricular size mild concentric left ventricular hypertrophy, estimated ejection fraction 50% with segmental wall motion abnormality described above, grade 1 diastolic dysfunction seen without tissue Doppler evidence of raise left atrial pressure. 2. Mildly enlarged right ventricle with normal contractility. 3. Mild mitral and tricuspid regurgitation. 4. No significant pericardial effusion noted. 5. Inferior vena cava is poorly visualized. Electronically signed by : Rashid Donis MD 05/31/2022 21:28:38
[2022-05-31 06:15] VITALS: PULSE 76; PULSE 78; O2SAT 96
[2022-05-31 06:40] LABS: Basophils % 0.3 % (0.1-2.0); Eosinophils # 0.3 K/mm3 (0.0-0.4); Eosinophils % 2.4 % (0.1-12.0); Hematocrit 39.3 % (42.0-52.0); Hemoglobin 12.8 g/dL (14.1-18.0); Lymphocytes # 2.2 K/mm3 (0.7-4.5); Lymphocytes % 20.6 % (10-50); Mean Corpuscular HGB Conc 32.7 g/dL (31.8-35.4); Mean Corpuscular Hemoglobin 28.6 pg (27.0-31.2); Mean Corpuscular Volume 87.5 fl (80-94); Mean Platelet Volume 8.6 fl (7.4-10.4); Monocytes # 0.6 K/mm3 (0.1-1.0); Monocytes % 5.9 % (1.7-9.3); Neutrophils # 7.5 K/mm3 (1.8-7.8); Neutrophils % 70.8 % (37.0-80.0); Platelet Count 218 K/mm3 (142-424); Red Blood Count 4.49 M/mm3 (4.60-6.20); Red Cell Distribution Width 15.5 % (11.5-17.5); White Blood Count 10.6 K/mm3 (4.8-10.8)
[2022-05-31 06:48] LABS: Chloride 103 mmol/L (98-107)
[2022-05-31 06:49] LABS: Sodium 139 mmol/L (136-145)
[2022-05-31 06:52] LABS: Blood Urea Nitrogen 21 mg/dl (9-20); Calcium 8.8 mg/dl (8.4-10.2); Carbon Dioxide 28 mmol/L (22.0-30.0); Creatinine Clearance Estimated 71 mL/min (50-200); Estimated Glomerular Filt Rate 84 ml/min (>60); GFR (African American) 102 ML/MIN (>60); Glucose 206 mg/dl (74-100)
[2022-05-31 07:47] VITALS: BP 154/90; PULSE 82; RESP 18; TEMP 36.6; O2SAT 95
[2022-05-31 08:00] VITALS: PULSE 75; PULSE 82; O2SAT 95
--- NOTE | 2022-05-31 08:06 | ECG_ITS ---
APPROVED REPORT Exam: Resting ECG HR:80 bpm ECG Measurements Heart Rate 80 AXES MN 173 P 13 QRSd 176 QRS -28 QT 427 T -37 QTc 463 Conclusion SINUS RHYTHM RIGHT BUNDLE BRANCH BLOCK [120+ ms QRS DURATION, UPRIGHT V1, 40+ ms S IN I/aVL/V4/V5/V6] INFERIOR MYOCARDIAL INFARCTION , OF INDETERMINATE AGE [40+ ms Q WAVE AND/OR ST/T ABNORMALITY IN II/aVF] ABNORMAL ECG UNCONFIRMED REPORT Electronically signed by : Blaise Bundy MD 05/31/2022 19:56:07
--- NOTE | 2022-05-31 09:07 | PC.NURSE ---
rosalinda tech: patient in room awake sitting in bed
--- NOTE | 2022-05-31 09:53 | EXP.DC.SUM ---
General Admission date:: 05/29/22 Discharge date: 05/31/22 HPI HPI HPI: This is a 67-year-old male that presents to [facility] emergency department via EMS for chest pain. His past medical history significant for diabetes, COPD, SARAI and noncompliant with CPAP, hypertension and shingles. He reports a preoperative clearance in January of this year with a stress test and echocardiogram identified normal ejection fraction. He underwent a left total knee replacement in January with normal postoperative course and no cardiac symptomatology. He reports over the past week he has experienced intermittent chest pain characterizes pressure and lasting a few seconds to a minute. He identified that his symptomatology increased with exertion. Today he experienced increased chest pressure that radiated to his arms causing diaphoresis and associated nausea. His family called EMS and in route ECG identified anterior inferior infarct confirmed upon arrival to the ED. He was emergently taken to the [facility] and his left heart cath identified RCA obstruction requiring lytic therapy with drug-eluting stent placement and his LAD required drug-eluting stent placement. Currently he reports that he is feeling better. Hospital Course Hospital Course Hospital Course: The patient was admitted to the medical unit on telemetry after his left heart cath. He tolerated his dual antiplatelet therapy, beta-yessy and ARB therapy post cath procedure. His telemetry identified no arrhythmias. An echocardiogram prior to discharge identified normal function. His laboratory studies and inflammatory markers were trended and remained stable. He continued on oxygen therapy for his chronic COPD. The patient identified improvement and no further chest pain and inquired about discharge home. Nursing staff reported that he remained afebrile with stable vital signs and appropriate oxygen saturations on his home usual oxygen requirement. He will be discharged home with instructions to follow-up with his PCP and in store marketer as scheduled. He plans to institute a weight loss program and continue with routine aerobic activity. Exam Data for Last 24 hours Vital signs and Labs for Last 24 Hours: Temp Pulse Resp BP Pulse Ox FiO2 97.8 F 82 18 154/90 H 95 28 05/31/22 07:47 05/31/22 07:47 05/31/22 07:47 05/31/22 07:47 05/31/22 07:47 05/29/22 18:01 Laboratory Results - last 24 hr 05/31/22 05:53: WBC 10.6, RBC 4.49 L, Hgb 12.8 L, Hct 39.3 L, MCV 87.5, MCH 28.6, MCHC 32.7, RDW 15.5, Plt Count 218, MPV 8.6, Neut % (Auto) 70.8, Lymph % (Auto) 20.6, Cedar % (Auto) 5.9, Eos % (Auto) 2.4, Baso % (Auto) 0.3, Neut # (Auto) 7.5, Lymph # (Auto) 2.2, Cedar # (Auto) 0.6, Eos # (Auto) 0.3, Baso # (Auto) 0.0 05/31/22 05:53: Sodium 139, Potassium 4.0, Chloride 103, Carbon Dioxide 28, Anion Gap 12.0, BUN 21 H, Creatinine 0.90, Estimated Creat Clear 71, Estimated GFR 84, Est GFR ( Amer) 102, Glucose 206 H D, Calcium 8.8 I & O for Last 24 hours: Intake & Output 05/28/22 05/29/22 05/30/22 05/31/22 23:59 23:59 23:59 23:59 Intake Total 480 / 480 2743 / 3103 720 / 720 Output Total 700 / 700 0 / 0 0 / 0 Balance -220 / -220 2743 / 3103 720 / 720 Weight 146.9 kg Constitutional Constitutional: no acute distress, morbidly obese and cooperative *Routine HEENT Exam Head: Present normocephalic Eye: Present EOMI and PERRL ENT: Present mucous membranes moist *Routine Neck Exam Neck: Present supple; Absent JVD or lymphadenopathy *Routine Respiratory Exam Respiratory: Present CTA bilaterally, normal respiratory effort and symmetric chest movement *Routine Cardiovascular Exam Cardiovascular: Present RRR; Absent murmur *Routine Abdominal Exam Abdominal: Present soft and normoactive bowel sounds; Absent tenderness *Routine Extremities Exam Extremities: Present pulses intact and normal capillary refill; Absent cyanosis, clubbing or edema *Routine Skin Exam Skin: Present
--- NOTE | 2022-05-31 10:19 | HMH.PHAINT1 ---
Pharmacy Intervention Comments: Discharge counseling and laborer turkey farm counseling completed at bedside with the patient and . Discussed new medications (aspirin, atorvastatin, ticagrelor, and bisoprolol), continued medications, and discontinued medications (pravastatin). Overviewed indication and possible side effects/mitigation strategies for each new medication and the importance of adherence. Patient has no questions or concerns at this time.
[2022-05-31 11:49] VITALS: BP 154/89; PULSE 79; RESP 18; TEMP 36.9; O2SAT 94
--- NOTE | 2022-05-31 12:04 | EXP.CARD.CON ---
History of Present Illness History of Present Illness Consult date: 05/31/22 Requesting physician: Sin Ledezma Chief complaint: stemi Additional 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:: Past medical Hx COPD Diabetes SARAI History of present illness: Per Primary Service note: This is a 67-year-old male that presents to [facility] emergency department via EMS for chest pain.? His past medical history significant for diabetes, COPD, SARAI and noncompliant with CPAP, hypertension and shingles.? He reports a preoperative clearance in January of this year with a stress test and echocardiogram identified normal ejection fraction.? He underwent a left total knee replacement in January with normal postoperative course and no cardiac symptomatology.? He reports over the past week he has experienced intermittent chest pain characterizes pressure and lasting a few seconds to a minute.? He identified that his symptomatology increased with exertion.? Today he experienced increased chest pressure that radiated to his arms causing diaphoresis and associated nausea.? His family called EMS and in route ECG identified anterior inferior infarct confirmed upon arrival to the ED.? He was emergently taken to the [facility] and his left heart cath identified RCA obstruction requiring lytic therapy with drug-eluting stent placement and his LAD required drug-eluting stent placement.? Currently he reports that he is feeling better. Cath report: IMPRESSION Critical ST elevation myocardial infarction in the proximal dominant right coronary is described above with successful mechanical thrombectomy followed by drug-eluting stent deployment reducing the 100% occlusion to 0% Persistent thrombus in the distal posterior lateral ventricular branch Moderate to severe stenosis in the proximal LAD with severe stenosis in the mid LAD followed by drug-eluting stenting to the mid LAD reducing the severe stenosis to 0% Dilated ventricle with reduced ejection fraction Elevated LVEDP PLAN 1. Brilinta 90 twice daily plus aspirin 81 mg daily 2. LDL 55 to be achieved with high intensity statin 3. Start low-dose bisoprolol and MARITO inhibitor's or ARB 4. Patient may benefit from CPAP or BiPAP usage 5. Continued supportive care with continuous telemetry for the next 48 hours 6. Echocardiogram in the morning 7. Avoidance of tobacco products 8. Recommend stress test Lexiscan Myoview in 6 weeks to determine if the proximal LAD lesion has hemodynamic significance 9. Cardiac rehabilitation [facility] Disclaimer: The information contained in this section may have been updated after the patient was seen, as this information can be updated by other users. 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 (Updated 05/31/22 @ 12:30 by Azalia J Michel, FOOD SAFETY AUDITOR) BMI 40.0-44.9, adult COPD (chronic obstructive pulmonary disease) Diabetes Encounter for pre-operative cardiovascular clearance HLD (hyperlipidemia) HTN (hypertension) SARAI (obstructive sleep apnea) Shingles Surgical History (Updated 05/29/22 @ 16:36 by Sin Ledezma MD) H/O colonoscopy History of total left knee replacement S/P cervical spinal fusion S/P left rotator cuff repair Family History (Updated 05/29/22 @ 16:38 by Sin Ledezma MD) Mother Pancreatic cancer Father COPD (chronic obstructive pulmonary disease) Social History Smoking Status: Former smoker alcohol intake: never current occupational status: other Travel in the last 8 weeks: None Review of Systems Review of Systems Review of systems:: pertinent systems reviewed and negative unless documented below Constitutional Constitutional: Denies headache(s) and Denies weakness ENT Ears, Nose, Mouth, and Throat: Denies headache(s) *Cardiovascular Cardiovascular: Reports chest pain and Reports dyspnea *Respiratory Respiratory: Reports system reviewed and no additional complaints, except as documented and Reports dyspnea *Gastrointestinal Gastrointestinal: Reports sy
--- NOTE | 2022-06-01 13:53 | CARE MANAGER ---
Contacted patient related to hospital discharge. Patient picked up meds and is aware of follow up appointments. Denies questions or concerns at this time. CHARLEY Bowman
== END 2022-05-31 11:45 | disposition home or self-care (01) | DRG 247 ==
LOC: ER 14:56 → 2ND 15:17
PROVIDERS: Internal Medicine; Admitting Provider Family Medicine; Emergency Provider Emergency Medicine; PCP Family Medicine; Visit Provider Family Medicine
PROC: 027135Z Dilation of Coronary Artery, Two Arteries with Two Drug-eluting Intraluminal Devices, Percutaneous Approach (ICD-10-PCS; principal; 2022-05-29 14:50)
DX: I21.3 ST elevation (STEMI) myocardial infarction of unspecified site (principal); Z68.42 Body mass index [BMI] 45.0-49.9, adult; E11.9 Type 2 diabetes mellitus without complications; I10 Essential (primary) hypertension; J44.9 Chronic obstructive pulmonary disease, unspecified; G47.33 Obstructive sleep apnea (adult) (pediatric); I25.10 Atherosclerotic heart disease of native coronary artery without angina pectoris; Z87.891 Personal history of nicotine dependence; E66.01 Morbid (severe) obesity due to excess calories; Z79.899 Other long term (current) drug therapy; Z79.4 Long term (current) use of insulin
CPT/HCPCS: 36415; 71045; 80048; 80053; 80061; 81001; 83036; 83735; 84484; 85025; 85347; 85610; 85730; 92928; 92973; 93005; 93306; 93458; 94640; 94760; 99152; 99153; 99285; C1725; C1760; C1769; C1876; C9600; C9803; J1644; J2405; Q9967; U0003; U0005

== ENCOUNTER 2022-06-02 10:14 | Outpatient (RCR) | payer MEDICARE, BC, SELFPAY | END 2022-09-09 11:00 | disposition home or self-care (01) | LOC: PT 10:14 | PROVIDERS: Visit Provider Internal Medicine | DX: I25.10 Atherosclerotic heart disease of native coronary artery without angina pectoris (principal); Z95.5 Presence of coronary angioplasty implant and graft | CPT/HCPCS: 93798 ==

== ENCOUNTER → 2022-06-09 14:34 | Outpatient (CLI) | payer MEDICARE, BC, SELFPAY ==
[2022-06-09 16:33] LABS: Hematocrit 41.9 % (42.0-52.0); Hemoglobin 12.7 g/dL (14.1-18.0)
[2022-06-09 17:24] LABS: Blood Urea Nitrogen 23 mg/dl (9-20); Estimated Glomerular Filt Rate 74 ml/min (>60); GFR (African American) 90 ML/MIN (>60)
== END ==
PROVIDERS: PCP Family Medicine; Visit Provider Internal Medicine
DX: I25.10 Atherosclerotic heart disease of native coronary artery without angina pectoris (principal); I10 Essential (primary) hypertension; M79.604 Pain in right leg
CPT/HCPCS: 36415; 82565; 84520; 85014; 85018

== ENCOUNTER → 2022-06-16 10:03 | Outpatient (CLI) | payer MEDICARE, BC, SELFPAY ==
--- NOTE | 2022-06-16 10:06 | CA_ITS ---
FINAL REPORT TECHNIQUE: Color Doppler, duplex Doppler and compression sonography of the right lower extremity venous system was performed. CLINICAL HISTORY: pain to leg, Pt on ASA and Brilinta FINDINGS: There is no evidence of deep venous thrombosis from the level of the groin to the calf. The veins are patent and compressible. IMPRESSION: No evidence of deep venous thrombosis right lower extremity. Reviewed, Interpreted and Dictated by Hung Mcintyre III, MD Transcribed by Sarah Maurer Authenticated and [facility]
== END ==
PROVIDERS: PCP Family Medicine; Visit Provider Nurse Practitioner
DX: M79.604 Pain in right leg (principal)
CPT/HCPCS: 93971

== ENCOUNTER 2022-08-27 13:53 | Emergency (ER) | payer MEDICARE, BC, SELFPAY ==
[2022-08-27 14:10] VITALS: BP 155/71; PULSE 80; RESP 18; TEMP 37.1; O2SAT 97; BMI 47.3
--- NOTE | 2022-08-27 14:14 | EXP.UTC ---
Discharge Plan Disposition Patient Disposition: Home, Self-Care Condition: Good Prescriptions Prescriptions: New benzonatate [benzonatate] 100 mg capsule 100 mg PO TIDP PRN (Reason: Cough) Qty: 30 0RF amoxicillin-pot clavulanate 875-125 mg Tablet 1 tab PO Q12H Qty: 20 0RF methylprednisolone 4 mg Tablets,Dose Pack 4 mg PO DIRECTED Qty: 21 0RF No Action tamsulosin 0.4 mg capsule 0.4 mg PO DAILY albuterol sulfate 90 mcg/actuation HFA aerosol inhaler 2 puff IH Q6HP PRN (Reason: shortness of breath) fluticasone propionate 50 mcg/actuation spray,suspension 1 spray NS DAILYP PRN (Reason: allergies) Label Comments: USE 1 SPRAY(S) IN EACH NOSTRIL ONCE DAILY Humulin R U-500 (Conc) Kwikpen 500 unit/mL (3 mL) insulin pen 70 unit SQ QACBREAK Rx Instructions: 50 units in PM losartan 100 mg tablet 100 mg PO DAILY Qty: 30 2RF bisoprolol fumarate 5 mg tablet 5 mg PO DAILY Qty: 90 1RF Brilinta 90 mg tablet 90 mg PO BID Qty: 60 11RF gabapentin 600 MG tablet 1,200 mg PO TID Label Comments: TAKE 2 TABLETS BY MOUTH THREE TIMES DAILY losartan 100 mg tablet 100 mg PO DAILY PRN (Reason: Hypertension) fluoxetine 20 mg capsule 40 mg PO DAILY pantoprazole 40 mg tablet,delayed release (DR/EC) 40 mg PO DAILY PRN (Reason: GERD) duloxetine 20 mg capsule,delayed release(DR/EC) 20 mg PO DAILY Asmanex HFA 200 mcg/actuation Hfa Aerosol Inhaler 2 puff INHALATION BID Stiolto Respimat 2.5-2.5 mcg/actuation Mist 2 puff INHALATION DAILY aspirin 81 mg Tablet,Delayed Release (Dr/Ec) 81 mg PO DAILY Qty: 30 0RF atorvastatin 40 mg Tablet 40 mg PO HS Qty: 30 0RF amlodipine 10 mg tablet 10 mg PO DAILY PRN (Reason: Hypertension) Referrals Follow up/Referrals: Catarino Ryna [Primary Care Provider] - See instructions Activity Restrictions/Add. Instructions Additional Instructions/Restrictions: Drink plenty of fluids. Take tylenol or ibuprofen for pain or fever. Take the medications as directed. Follow up with your regular doctor. GO TO THE ER FOR ANY WORSENING SYMPTOMS Clinical Impressions Clinical Impression: COPD exacerbation, Sinusitis Instructions Patient Instructions: Chronic Obstructive Pulmonary Disease, DI for Sinusitis Discharge ED Provider: Keyshawn Hendricks [facility] General Stated complaint: SOA, Congestion, drainage, cough, sore throat Time Seen by Provider: 08/27/22 14:14 History of Present Illness Provider Complaint: He states that for the past 3 days he has had worsening sinus and chest congestion. Related Data Home Medications Medication Instructions Recorded Confirmed gabapentin 600 mg tablet 1,200 mg PO TID NEUROPATHY 04/29/19 06/16/22 albuterol sulfate 90 mcg/actuation 2 puff inhalation Q6HP PRN 01/28/22 06/16/22 aerosol inhaler shortness of breath fluticasone propionate 50 1 spray intranasal DAILYP PRN 01/28/22 06/16/22 mcg/actuation nasal allergies spray,suspension tamsulosin 0.4 mg capsule 0.4 mg PO DAILY PROSTATE 01/28/22 06/16/22 duloxetine 20 mg capsule,delayed 20 mg PO DAILY Depression 05/29/22 06/16/22 release mometasone 200 mcg/actuation HFA 2 puff inhalation BID Breathing 05/30/22 06/16/22 aerosol inhaler (Asmanex HFA) problems tiotropium 2.5 mcg-olodaterol 2.5 2 puff inhalation DAILY soa 05/30/22 06/16/22 mcg/actuation mist for inhalation (Stiolto Respimat) amlodipine 10 mg tablet 10 mg PO DAILY PRN Hypertension 06/16/22 06/16/22 fluoxetine 20 mg capsule 40 mg PO DAILY Depression 06/16/22 06/16/22 insulin regular hum U-500 conc 500 70 unit SQ QACBREAK 06/16/22 06/16/22 unit/mL(3 mL) subcut pen (Humulin R U-500 (Conc) Insulin Kwikpen) losartan 100 mg tablet 100 mg PO DAILY PRN Hypertension 06/16/22 06/16/22 pantoprazole 40 mg tablet,delayed 40 mg PO DAILY PRN GERD 06/16/22 06/16/22 release Previous Rx's Medication Instructi
[2022-08-27 14:29] LABS: UTC Strep Screen (Rapid) Negative (Negative)
[2022-08-27 15:23] VITALS: BP 155/71; PULSE 80; RESP 20; TEMP 37.1; O2SAT 97
== END 2022-08-27 15:20 | disposition home or self-care (01) ==
PROVIDERS: Emergency Provider Nurse Practitioner Family; PCP Family Medicine
DX: J01.90 Acute sinusitis, unspecified (principal); R07.0 Pain in throat; E11.9 Type 2 diabetes mellitus without complications; I10 Essential (primary) hypertension; F17.211 Nicotine dependence, cigarettes, in remission
CPT/HCPCS: 87880; 99212; 99214; G0463

== ENCOUNTER 2022-09-02 09:43 | Emergency (ER) | payer MEDICARE, BC, SELFPAY ==
[2022-09-02 10:00] VITALS: BP 139/74; PULSE 74; RESP 20; TEMP 37.1; O2SAT 95; BMI 47.3
--- NOTE | 2022-09-02 10:11 | EXP.UTC ---
Discharge Plan Disposition Patient Disposition: Home, Self-Care Condition: Good Prescriptions Prescriptions: New ciprofloxacin-dexamethasone 0.3-0.1 % Drops,Suspension 2 drp OTIC (EAR) BID 7 Days Qty: 1 0RF No Action tamsulosin 0.4 mg capsule 0.4 mg PO DAILY albuterol sulfate 90 mcg/actuation HFA aerosol inhaler 2 puff IH Q6HP PRN (Reason: shortness of breath) fluticasone propionate 50 mcg/actuation spray,suspension 1 spray NS DAILYP PRN (Reason: allergies) Label Comments: USE 1 SPRAY(S) IN EACH NOSTRIL ONCE DAILY Humulin R U-500 (Conc) Kwikpen 500 unit/mL (3 mL) insulin pen 70 unit SQ QACBREAK Rx Instructions: 50 units in PM losartan 100 mg tablet 100 mg PO DAILY Qty: 30 2RF bisoprolol fumarate 5 mg tablet 5 mg PO DAILY Qty: 90 1RF Brilinta 90 mg tablet 90 mg PO BID Qty: 60 11RF gabapentin 600 MG tablet 1,200 mg PO TID Label Comments: TAKE 2 TABLETS BY MOUTH THREE TIMES DAILY losartan 100 mg tablet 100 mg PO DAILY PRN (Reason: Hypertension) fluoxetine 20 mg capsule 40 mg PO DAILY benzonatate [benzonatate] 100 mg capsule 100 mg PO TIDP PRN (Reason: Cough) Qty: 30 0RF amoxicillin-pot clavulanate 875-125 mg Tablet 1 tab PO Q12H Qty: 20 0RF methylprednisolone 4 mg Tablets,Dose Pack 4 mg PO DIRECTED Qty: 21 0RF pantoprazole 40 mg tablet,delayed release (DR/EC) 40 mg PO DAILY PRN (Reason: GERD) duloxetine 20 mg capsule,delayed release(DR/EC) 20 mg PO DAILY Asmanex HFA 200 mcg/actuation Hfa Aerosol Inhaler 2 puff INHALATION BID Stiolto Respimat 2.5-2.5 mcg/actuation Mist 2 puff INHALATION DAILY aspirin 81 mg Tablet,Delayed Release (Dr/Ec) 81 mg PO DAILY Qty: 30 0RF atorvastatin 40 mg Tablet 40 mg PO HS Qty: 30 0RF amlodipine 10 mg tablet 10 mg PO DAILY PRN (Reason: Hypertension) Referrals Follow up/Referrals: Catarino Ryan [Primary Care Provider] - See instructions Activity Restrictions/Add. Instructions Additional Instructions/Restrictions: Use the ear drops as directed. Follow up with your primary care physician. GO TO THE ER FOR ANY WORSENING SYMPTOMS OR CONCERNS Clinical Impressions Clinical Impression: Left otitis externa Instructions Patient Instructions: How to Use Ear Drops Discharge ED Provider: Keyshawn Hendricks [facility] General Stated complaint: LT ear bleeding, pain Time Seen by Provider: 09/02/22 10:11 History of Present Illness Provider Complaint: He states that since yesterday he has had right ear pain. He tried to clean it with a q-tip to make it feel better and then he started having some bloody discharge from the ear canal. he denies any change in his hearing. Related Data Home Medications Medication Instructions Recorded Confirmed gabapentin 600 mg tablet 1,200 mg PO TID NEUROPATHY 04/29/19 06/16/22 albuterol sulfate 90 mcg/actuation 2 puff inhalation Q6HP PRN 01/28/22 06/16/22 aerosol inhaler shortness of breath fluticasone propionate 50 1 spray intranasal DAILYP PRN 01/28/22 06/16/22 mcg/actuation nasal allergies spray,suspension tamsulosin 0.4 mg capsule 0.4 mg PO DAILY PROSTATE 01/28/22 06/16/22 duloxetine 20 mg capsule,delayed 20 mg PO DAILY Depression 05/29/22 06/16/22 release mometasone 200 mcg/actuation HFA 2 puff inhalation BID Breathing 05/30/22 06/16/22 aerosol inhaler (Asmanex HFA) problems tiotropium 2.5 mcg-olodaterol 2.5 2 puff inhalation DAILY soa 05/30/22 06/16/22 mcg/actuation mist for inhalation (Stiolto Respimat) amlodipine 10 mg tablet 10 mg PO DAILY PRN Hypertension 06/16/22 06/16/22 fluoxetine 20 mg capsule 40 mg PO DAILY Depression 06/16/22 06/16/22 insulin regular hum U-500 conc 500 70 unit SQ QACBREAK 06/16/22 06/16/22 unit/mL(3 mL) subcut pen (Humulin R U-500 (Conc) Insulin Kwikpen) losartan 100 mg tablet 100 mg PO DAILY PRN Hypertension 06/16/22 06/16/22 pantoprazole 40 mg
[2022-09-02 11:26] VITALS: BP 139/74; PULSE 74; RESP 20; TEMP 37.1; O2SAT 95
== END 2022-09-02 11:25 | disposition home or self-care (01) ==
PROVIDERS: Emergency Provider Nurse Practitioner Family; PCP Family Medicine
DX: H60.92 Unspecified otitis externa, left ear (principal); J44.9 Chronic obstructive pulmonary disease, unspecified; E11.9 Type 2 diabetes mellitus without complications; E78.5 Hyperlipidemia, unspecified; I10 Essential (primary) hypertension; Z79.4 Long term (current) use of insulin
CPT/HCPCS: 99212; 99214; G0463

== ENCOUNTER 2022-09-29 10:00 | Outpatient (RCR) | payer MEDICARE, BC, SELFPAY | END 2022-09-29 10:05 | disposition home or self-care (01) | LOC: PT 10:00 | PROVIDERS: PCP Family Medicine; Visit Provider Physician Assistant Surgical | DX: M54.2 Cervicalgia (principal) | CPT/HCPCS: 20560; 97010; 97014; 97110; 97163; G0283 ==

== ENCOUNTER 2023-02-20 14:58 | Emergency (ER) | payer MEDICARE, BC, SELFPAY ==
[2023-02-20] VITALS (7 sets, daily range): BP systolic 113–144; BP diastolic 64–82; PULSE 80–89; RESP 16–20; TEMP 36.6; O2SAT 94–98; BMI 49.5
--- NOTE | 2023-02-20 14:52 | ECG_ITS ---
APPROVED REPORT Exam: Resting ECG HR:87 bpm ECG Measurements Heart Rate 87 AXES VA 160 P -59 QRSd 160 QRS -30 QT 408 T 5 QTc 452 Conclusion SINUS RHYTHM RIGHT BUNDLE BRANCH BLOCK [120+ ms QRS DURATION, UPRIGHT V1, 40+ ms S IN I/aVL/V4/V5/V6] INFERIOR MYOCARDIAL INFARCTION , OF INDETERMINATE AGE [40+ ms Q WAVE AND/OR ST/T ABNORMALITY IN II/aVF] ABNORMAL ECG UNCONFIRMED REPORT Electronically signed by : Blaise Bundy MD 02/21/2023 15:51:28
--- NOTE | 2023-02-20 15:20 | HMH.EDGENADL ---
Discharge Plan Disposition Patient Disposition: Home, Self-Care Prescriptions Prescriptions: No Action tamsulosin 0.4 mg capsule 0.4 mg PO DAILY albuterol sulfate 90 mcg/actuation HFA aerosol inhaler 2 puff IH Q6HP PRN (Reason: shortness of breath) fluticasone propionate 50 mcg/actuation spray,suspension 1 spray NS DAILYP PRN (Reason: allergies) Patient Comments: USE 1 SPRAY(S) IN EACH NOSTRIL ONCE DAILY Humulin R U-500 (Conc) Kwikpen 500 unit/mL (3 mL) insulin pen 70 unit SQ QACBREAK Rx Instructions: 50 units in PM Brilinta 90 mg tablet 90 mg PO BID Qty: 60 11RF losartan 100 mg tablet See Rx Instructions .ROUTE .COMPLEX Qty: 90 1RF Dose Instruction: TAKE ONE TABLET BY MOUTH ONCE A DAY Rx Instructions: TAKE ONE TABLET BY MOUTH ONCE A DAY bisoprolol fumarate 5 mg tablet See Rx Instructions .ROUTE .COMPLEX Qty: 90 1RF Dose Instruction: TAKE 1 TABLET BY MOUTH ONCE A DAY Rx Instructions: TAKE 1 TABLET BY MOUTH ONCE A DAY gabapentin 600 MG tablet 1,200 mg PO TID Patient Comments: TAKE 2 TABLETS BY MOUTH THREE TIMES DAILY losartan 100 mg tablet 100 mg PO DAILY PRN (Reason: Hypertension) fluoxetine 20 mg capsule 40 mg PO DAILY benzonatate [benzonatate] 100 mg capsule 100 mg PO TIDP PRN (Reason: Cough) Qty: 30 0RF amoxicillin-pot clavulanate 875-125 mg Tablet 1 tab PO Q12H Qty: 20 0RF methylprednisolone 4 mg Tablets,Dose Pack 4 mg PO DIRECTED Qty: 21 0RF ciprofloxacin-dexamethasone 0.3-0.1 % Drops,Suspension 2 drp OTIC (EAR) BID 7 Days Qty: 1 0RF pantoprazole 40 mg tablet,delayed release (DR/EC) 40 mg PO DAILY PRN (Reason: GERD) duloxetine 20 mg capsule,delayed release(DR/EC) 20 mg PO DAILY Asmanex HFA 200 mcg/actuation Hfa Aerosol Inhaler 2 puff INHALATION BID Stiolto Respimat 2.5-2.5 mcg/actuation Mist 2 puff INHALATION DAILY aspirin 81 mg Tablet,Delayed Release (Dr/Ec) 81 mg PO DAILY Qty: 30 0RF atorvastatin 40 mg Tablet 40 mg PO HS Qty: 30 0RF amlodipine 10 mg tablet 10 mg PO DAILY PRN (Reason: Hypertension) Referrals Follow up/Referrals: Catarino Ryan [Primary Care Provider] - See instructions Samy Moise MD [Staff Physician] - See instructions Activity Restrictions/Add. Instructions Additional Instructions/Restrictions: No evidence of any cardiopulmonary emergency. Your pain completely resolved with a GI cocktail suggesting this is likely esophagitis in the spectrum of GERD. Please follow-up with our general surgeon Dr. John to discuss the possibility of getting a downstream endoscopy if your symptoms continue Clinical Impressions Clinical Impression: Chest pain, GERD (gastroesophageal reflux disease) Discharge ED Provider: Ld Teresa General Adult HPI General Chief complaint: Chest Pain Stated complaint: chest pain Time Seen by Provider: 02/20/23 15:08 History of Present Illness HPI narrative: Patient is a 67-year-old male here with chest pain. Has a history of known coronary artery disease had an [place] with stents that were placed in May of this most recent year by Dr. Sofia. He has been followed since that time by a carbonation equipment tender at [facility] recently was transitioned from Brilinta to Plavix. Has been doing well up until this morning he had some discomfort at the upper region of his central chest that radiated into his epigastric region also had some discomfort in his back but that is since resolved. His daughter who is with him states that he had some diaphoresis associated with this he denies any shortness of breath any position malady any exertional component and no other radiation. He now states he just has a very mild discomfort in his retrosternal area that he describes as an arthritic pain very mild achy pain. Does have a history of reflux and states that this is more of an ache he also took Pepcid without
[2023-02-20 15:37] LABS: Alanine Aminotransferase 34 U/L (12-78); Albumin Level 4.5 g/dl (3.5-5.0); Albumin/Globulin Ratio 1.4 (1.1-1.8); Alkaline Phosphatase 117 U/L (38-126); Anion Gap 16.7 mEq/L (5-15); Aspartate Amino Transferase 35 U/L (17-59); Bilirubin,Total 0.9 mg/dl (0.2-1.3); Blood Urea Nitrogen 20 mg/dl (9-20); Calcium 9.1 mg/dl (8.4-10.2); Carbon Dioxide 26 mmol/L (22.0-30.0); Chloride 100 mmol/L (98-107); Creatinine Clearance Estimated 73 mL/min (50-200); Estimated Glomerular Filt Rate 74 ml/min (>60); GFR (African American) 90 ML/MIN (>60); Globulin 3.3 g/dL (1.3-3.2); Glucose 330 mg/dl (74-100); Potassium 4.7 mmoL/L (3.5-5.1); Sodium 138 mmol/L (136-145); Total Protein,Serum 7.8 g/dl (6.3-8.2)
--- NOTE | 2023-02-20 15:37 | XR_ITS ---
PROCEDURE INFORMATION: Exam: XR Chest Exam date and time: 02/20/2023 3:31 PM Age: 67 years old Clinical indication: Pain; Chest pressure; Additional info: Cp TECHNIQUE: Imaging protocol: Radiologic exam of the chest. Views: 1 view. COMPARISON: CR XR CHEST PORTABLE 05/30/2022 6:14 AM FINDINGS: Lungs: Lungs are clear. No pulmonary edema or consolidation. Pleural spaces: No pleural effusion. No pneumothorax. Heart/Mediastinum: Stable cardiomegaly. Bones/joints: No acute abnormality. Postoperative changes of the cervical spine. IMPRESSION: Stable cardiomegaly. No acute abnormality.
[2023-02-20 15:40] LABS: Activated Partial Thrombo Time 27.6 seconds (22.8-30.6); INR 0.98 (0.9-1.1); Prothrombin Time 10.6 seconds (10.1-12.5)
[2023-02-20 15:41] LABS: Basophils # 0.1 K/mm3 (0-0.2); Basophils % 0.3 % (0.1-2.0); Eosinophils # 0.4 K/mm3 (0.0-0.4); Eosinophils % 2.8 % (0.1-12.0); Hematocrit 45.1 % (42.0-52.0); Hemoglobin 14.5 g/dL (14.1-18.0); Lymphocytes # 2.4 K/mm3 (0.7-4.5); Lymphocytes % 15.9 % (10-50); Mean Corpuscular HGB Conc 32.1 g/dL (31.8-35.4); Mean Corpuscular Hemoglobin 29.9 pg (27.0-31.2); Mean Corpuscular Volume 93.2 fl (80-94); Mean Platelet Volume 8.6 fl (7.4-10.4); Monocytes % 6.5 % (1.7-9.3); Neutrophils # 11.1 K/mm3 (1.8-7.8); Neutrophils % 74.4 % (37.0-80.0); Platelet Count 225 K/mm3 (142-424); Red Blood Count 4.84 M/mm3 (4.60-6.20); Red Cell Distribution Width 14.5 % (11.5-17.5); White Blood Count 14.9 K/mm3 (4.8-10.8)
[2023-02-20 15:44] LABS: Lipase 71 U/L (23-300); Magnesium 1.7 mg/dl (1.6-2.3)
--- NOTE | 2023-02-20 15:48 | PC.NURSE ---
checked on pt no needs, at bs
[2023-02-20 16:03] LABS: D-Dimer 0.56 ug/mL (0.0-0.5)
--- NOTE | 2023-02-20 16:05 | PC.NURSE ---
pt received a water md aware
[2023-02-20 16:15] LABS: Troponin I < 0.01 ng/ml (0.00-0.034)
--- NOTE | 2023-02-20 17:14 | PC.NURSE ---
pt ambulated to the restroom with no problems
--- NOTE | 2023-02-20 17:38 | PC.NURSE ---
pt up to restroom wishes to sit in chair , advised if any problems to let us know
[2023-02-20 17:58] LABS: Microscopic, Urine URINE MICROSCOPIC (MICROSCOPIC)
[2023-02-20 18:51] LABS: Troponin I < 0.01 ng/ml (0.00-0.034)
[2023-02-20 18:56] LABS: Appearance,Urine Clear (Clear); Bilirubin,Urine Negative (Negative); Blood, Urine Negative (Negative); Color,Urine Yellow (Yellow); Glucose,Urine (UA) 3+ (Negative); Ketones,Urine Negative (Negative); Leukocyte Esterase,Urine Trace (Negative); Nitrate,Urine Negative (Negative); Protein,Urine Trace (Negative); Specific Gravity, Urine 1.025 (1.005-1.030); Urobilinogen,Urine 0.2 EU/dl (0.2)
[2023-02-20 18:57] LABS: Squamous Epithelial Cell,Urine Occasional #/hpf (0-5); WBC,Urine Occasional #/hpf (0-3)
== END 2023-02-20 19:27 | disposition home or self-care (01) ==
PROVIDERS: Emergency Provider Student in an Organized Health Care Education/Training Program; PCP Family Medicine
DX: R07.9 Chest pain, unspecified (principal); K21.9 Gastro-esophageal reflux disease without esophagitis; J44.9 Chronic obstructive pulmonary disease, unspecified; E11.9 Type 2 diabetes mellitus without complications; E78.5 Hyperlipidemia, unspecified; I10 Essential (primary) hypertension; G47.33 Obstructive sleep apnea (adult) (pediatric); I45.19 Other right bundle-branch block
CPT/HCPCS: 36415; 71045; 80053; 81001; 83690; 83735; 84484; 85025; 85378; 85610; 85730; 87086; 93005; 99285

== ENCOUNTER 2023-03-09 19:42 | Emergency (ER) | payer MEDICARE, BC, SELFPAY ==
[2023-03-09 19:58] VITALS: BP 161/77; PULSE 92; RESP 20; TEMP 36.6; O2SAT 95; BMI 49.5
[2023-03-09 20:01] VITALS: BP 143/66; PULSE 95; RESP 18; O2SAT 94
[2023-03-09 20:16] LABS: Influenza A, PCR Not Detected (NotDetected); Influenza B, PCR Not Detected (NotDetected)
--- NOTE | 2023-03-09 20:27 | XR_ITS ---
FINAL REPORT CLINICAL HISTORY: COPD exacerbation, L wheexing COMPARISON: 02/20/2023 FINDINGS: The heart size is mildly enlarged. The mediastinum is normal. There is no focal infiltrate or edema. There are no pleural effusions. There is no pneumothorax. There is no osseous abnormality. IMPRESSION: No acute cardiopulmonary process Reviewed, Interpreted and Dictated by Sb Renee MD Transcribed by Damaris Dueñas Authenticated and [facility]
--- NOTE | 2023-03-09 20:28 | HMH.EDGENADL ---
Discharge Plan Disposition Patient Disposition: Home, Self-Care Prescriptions Prescriptions: New Paxlovid 300 mg (150 mg x 2)-100 mg tablets,dose pack See Rx Instructions .ROUTE .COMPLEX Qty: 30 0RF Rx Instructions: take TWO 150 mg tablets of nirmatrelvir with ONE 100 mg tablet of ritonavir twice daily for 5 days cefdinir 300 mg capsule 300 mg PO BID 7 Days Qty: 14 0RF No Action tamsulosin 0.4 mg capsule 0.4 mg PO DAILY albuterol sulfate 90 mcg/actuation HFA aerosol inhaler 2 puff IH Q6HP PRN (Reason: shortness of breath) fluticasone propionate 50 mcg/actuation spray,suspension 1 spray NS DAILYP PRN (Reason: allergies) Patient Comments: USE 1 SPRAY(S) IN EACH NOSTRIL ONCE DAILY Humulin R U-500 (Conc) Kwikpen 500 unit/mL (3 mL) insulin pen 70 unit SQ QACBREAK Rx Instructions: 50 units in PM Brilinta 90 mg tablet 90 mg PO BID Qty: 60 11RF losartan 100 mg tablet See Rx Instructions .ROUTE .COMPLEX Qty: 90 1RF Dose Instruction: TAKE ONE TABLET BY MOUTH ONCE A DAY Rx Instructions: TAKE ONE TABLET BY MOUTH ONCE A DAY bisoprolol fumarate 5 mg tablet See Rx Instructions .ROUTE .COMPLEX Qty: 90 1RF Dose Instruction: TAKE 1 TABLET BY MOUTH ONCE A DAY Rx Instructions: TAKE 1 TABLET BY MOUTH ONCE A DAY gabapentin 600 MG tablet 1,200 mg PO TID Patient Comments: TAKE 2 TABLETS BY MOUTH THREE TIMES DAILY losartan 100 mg tablet 100 mg PO DAILY PRN (Reason: Hypertension) fluoxetine 20 mg capsule 40 mg PO DAILY benzonatate [benzonatate] 100 mg capsule 100 mg PO TIDP PRN (Reason: Cough) Qty: 30 0RF amoxicillin-pot clavulanate 875-125 mg Tablet 1 tab PO Q12H Qty: 20 0RF methylprednisolone 4 mg Tablets,Dose Pack 4 mg PO DIRECTED Qty: 21 0RF ciprofloxacin-dexamethasone 0.3-0.1 % Drops,Suspension 2 drp OTIC (EAR) BID 7 Days Qty: 1 0RF pantoprazole 40 mg tablet,delayed release (DR/EC) 40 mg PO DAILY PRN (Reason: GERD) duloxetine 20 mg capsule,delayed release(DR/EC) 20 mg PO DAILY Asmanex HFA 200 mcg/actuation Hfa Aerosol Inhaler 2 puff INHALATION BID Stiolto Respimat 2.5-2.5 mcg/actuation Mist 2 puff INHALATION DAILY aspirin 81 mg Tablet,Delayed Release (Dr/Ec) 81 mg PO DAILY Qty: 30 0RF atorvastatin 40 mg Tablet 40 mg PO HS Qty: 30 0RF amlodipine 10 mg tablet 10 mg PO DAILY PRN (Reason: Hypertension) Referrals Follow up/Referrals: Jose Thurman II, MD [Primary Care Provider] - See instructions Activity Restrictions/Add. Instructions Additional Instructions/Restrictions: Call your family doctor to establish care for this visit to the emergency department and schedule follow-up within 48 hours to ensure improvement. If you have any worsening of your condition or any other concerning signs or symptoms, return to the emergency department or your primary care doctor for further evaluation. Take medications as prescribed Clinical Impressions Clinical Impression: COPD (chronic obstructive pulmonary disease) with acute bronchitis, COVID-19 Discharge ED Provider: Darvin Cueto General Adult HPI General Chief complaint: Shortness of Breath/Dyspnea Stated complaint: SOA weak,nausea Time Seen by Provider: 03/09/23 19:45 Mode of Arrival: Ambulatory Source of Information: Patient and Spouse Limitations: No Limitations Description of Symptoms (Recalled from ER Triage Doc. by RN): pt c/o SOA bilateral fluid in his ears causing dizziness. pt states a family member inside the home tested positive for covid today. pt has a hx of COPD and bronchial asthma with PRN oxygen use NC 2-3L. History of Present Illness HPI narrative: 68-year-old male with history of COPD, CAD status post stenting, diabetes, SARAI on nightly oxygen, hypertension, hyperlipidemia presenting with shortness of breath. Patient states that he started having cough and shortness of gerson
[2023-03-09 20:31] VITALS: BP 117/59; PULSE 94; RESP 20; O2SAT 95
[2023-03-09 20:53] LABS: Coronavirus 19, PCR Detected (NotDetected)
[2023-03-09 21:02] LABS: VBG Base Excess 4.3 mmol/L (-2.4-2.3); VBG HCO3 29.5 mmol/L (23-30); VBG Oxygen Saturation 66.6 % (50-70); VBG PH 7.37 mmol/L (7.31-7.41); VBG PO2 32.8 mmol/L (28-40); VBG Total CO2 31.1 mmol/L (23-27)
[2023-03-09 21:18] LABS: Alanine Aminotransferase 28 U/L (12-78); Albumin Level 4.4 g/dl (3.5-5.0); Albumin/Globulin Ratio 1.4 (1.1-1.8); Alkaline Phosphatase 90 U/L (38-126); Anion Gap 13.3 mEq/L (5-15); Aspartate Amino Transferase 31 U/L (17-59); Bilirubin,Total 0.6 mg/dl (0.2-1.3); Blood Urea Nitrogen 22 mg/dl (9-20); Carbon Dioxide 31 mmol/L (22.0-30.0); Chloride 100 mmol/L (98-107); Creatinine Clearance Estimated 72 mL/min (50-200); Estimated Glomerular Filt Rate 74 ml/min (>60); GFR (African American) 90 ML/MIN (>60); Globulin 3.2 g/dL (1.3-3.2); Glucose 161 mg/dl (74-100); Potassium 4.3 mmoL/L (3.5-5.1); Sodium 140 mmol/L (136-145); Total Protein,Serum 7.6 g/dl (6.3-8.2)
[2023-03-09 21:21] LABS: Basophils % 0.4 % (0.1-2.0); Eosinophils # 0.4 K/mm3 (0.0-0.4); Eosinophils % 3.6 % (0.1-12.0); Hematocrit 45.9 % (42.0-52.0); Hemoglobin 14.3 g/dL (14.1-18.0); Lymphocytes # 1.1 K/mm3 (0.7-4.5); Lymphocytes % 9.2 % (10-50); Mean Corpuscular HGB Conc 31.1 g/dL (31.8-35.4); Mean Corpuscular Hemoglobin 28.7 pg (27.0-31.2); Mean Corpuscular Volume 92.4 fl (80-94); Mean Platelet Volume 8.8 fl (7.4-10.4); Monocytes # 0.7 K/mm3 (0.1-1.0); Neutrophils # 9.4 K/mm3 (1.8-7.8); Neutrophils % 80.9 % (37.0-80.0); Platelet Count 198 K/mm3 (142-424); Red Blood Count 4.96 M/mm3 (4.60-6.20); Red Cell Distribution Width 14.6 % (11.5-17.5); White Blood Count 11.6 K/mm3 (4.8-10.8)
[2023-03-09 21:36] LABS: Troponin I 0.01 ng/ml (0.00-0.034)
[2023-03-09 21:46] VITALS: BP 152/99; PULSE 91; RESP 14; TEMP 36.5; O2SAT 98
[2023-03-09 21:55] LABS: NT Pro Brain Natriuretic Pep. 127 pg/mL (0-125)
== END 2023-03-09 21:53 | disposition home or self-care (01) ==
PROVIDERS: Emergency Provider Emergency Medicine; PCP Internal Medicine
DX: U07.1 COVID-19 (principal); J44.0 Chronic obstructive pulmonary disease with (acute) lower respiratory infection; I25.10 Atherosclerotic heart disease of native coronary artery without angina pectoris; I10 Essential (primary) hypertension; E78.5 Hyperlipidemia, unspecified; G47.33 Obstructive sleep apnea (adult) (pediatric); E11.9 Type 2 diabetes mellitus without complications
CPT/HCPCS: 71045; 80053; 82803; 83880; 84484; 85025; 87040; 87636; 96365; 96375; 99285; J0696

== ENCOUNTER 2023-06-17 13:01 | Emergency (ER) | payer MEDICARE, BC, SELFPAY ==
[2023-06-17 13:20] VITALS: BP 126/76; PULSE 93; RESP 20; TEMP 36.4; O2SAT 95; BMI 49.5
--- NOTE | 2023-06-17 13:24 | EXP.UTC ---
Discharge Plan Disposition Patient Disposition: Home, Self-Care Condition: Good Prescriptions Prescriptions: New amoxicillin [amoxicillin] 875 mg tablet 875 mg PO Q12H Qty: 20 0RF benzonatate [benzonatate] 100 mg capsule 100 mg PO TIDP PRN (Reason: Cough) Qty: 30 0RF prednisone [prednisone] 20 mg tablet 20 mg PO DAILY 3 Days Qty: 3 0RF No Action tamsulosin 0.4 mg capsule 0.4 mg PO DAILY albuterol sulfate 90 mcg/actuation HFA aerosol inhaler 2 puff IH Q6HP PRN (Reason: shortness of breath) fluticasone propionate 50 mcg/actuation spray,suspension 1 spray NS DAILYP PRN (Reason: allergies) Patient Comments: USE 1 SPRAY(S) IN EACH NOSTRIL ONCE DAILY Humulin R U-500 (Conc) Kwikpen 500 unit/mL (3 mL) insulin pen 70 unit SQ QACBREAK Rx Instructions: 50 units in PM Brilinta 90 mg tablet 90 mg PO BID Qty: 60 11RF losartan 100 mg tablet See Rx Instructions .ROUTE .COMPLEX Qty: 90 1RF Dose Instruction: TAKE ONE TABLET BY MOUTH ONCE A DAY Rx Instructions: TAKE ONE TABLET BY MOUTH ONCE A DAY bisoprolol fumarate 5 mg tablet See Rx Instructions .ROUTE .COMPLEX Qty: 90 1RF Dose Instruction: TAKE 1 TABLET BY MOUTH ONCE A DAY Rx Instructions: TAKE 1 TABLET BY MOUTH ONCE A DAY gabapentin 600 MG tablet 1,200 mg PO TID Patient Comments: TAKE 2 TABLETS BY MOUTH THREE TIMES DAILY losartan 100 mg tablet 100 mg PO DAILY PRN (Reason: Hypertension) fluoxetine 20 mg capsule 40 mg PO DAILY benzonatate [benzonatate] 100 mg capsule 100 mg PO TIDP PRN (Reason: Cough) Qty: 30 0RF amoxicillin-pot clavulanate 875-125 mg Tablet 1 tab PO Q12H Qty: 20 0RF methylprednisolone 4 mg Tablets,Dose Pack 4 mg PO DIRECTED Qty: 21 0RF ciprofloxacin-dexamethasone 0.3-0.1 % Drops,Suspension 2 drp OTIC (EAR) BID 7 Days Qty: 1 0RF Paxlovid 300 mg (150 mg x 2)-100 mg tablets,dose pack See Rx Instructions .ROUTE .COMPLEX Qty: 30 0RF Rx Instructions: take TWO 150 mg tablets of nirmatrelvir with ONE 100 mg tablet of ritonavir twice daily for 5 days cefdinir 300 mg capsule 300 mg PO BID 7 Days Qty: 14 0RF pantoprazole 40 mg tablet,delayed release (DR/EC) 40 mg PO DAILY PRN (Reason: GERD) duloxetine 20 mg capsule,delayed release(DR/EC) 20 mg PO DAILY Asmanex HFA 200 mcg/actuation Hfa Aerosol Inhaler 2 puff INHALATION BID Stiolto Respimat 2.5-2.5 mcg/actuation Mist 2 puff INHALATION DAILY aspirin 81 mg Tablet,Delayed Release (Dr/Ec) 81 mg PO DAILY Qty: 30 0RF atorvastatin 40 mg Tablet 40 mg PO HS Qty: 30 0RF amlodipine 10 mg tablet 10 mg PO DAILY PRN (Reason: Hypertension) Referrals Follow up/Referrals: Provider,Referral, MD [Primary Care Provider] - See instructions Activity Restrictions/Add. Instructions Additional Instructions/Restrictions: Drink plenty of fluids. Take tylenol or ibuprofen for pain or fever. Take the medications as directed. Follow up with your regular doctor. GO TO THE ER FOR ANY WORSENING SYMPTOMS Clinical Impressions Clinical Impression: Pharyngitis Instructions Patient Instructions: Sore Throat, DI for Pharyngitis/Tonsillopharyngitis -- Adult Discharge ED Provider: Keyshawn Hendricks [facility] [place] General Stated complaint: sore throat, cough, chills Time Seen by Provider: 06/17/23 13:22 History of Present Illness Provider Complaint: He states that for the past 5 days he has had sore throat, cough, and chills. Related Data Home Medications Medication Instructions Recorded Confirmed gabapentin 600 mg tablet 1,200 mg PO TID NEUROPATHY 04/29/19 06/16/22 albuterol sulfate 90 mcg/actuation 2 puff inhalation Q6HP PRN 01/28/22 06/16/22 aerosol inhaler shortness of breath fluticasone propionate 50 1 spray intranasal DAILYP PRN 01/28/22 06/16/22 mcg/actuation nasal allergies spray,suspension tamsulosin 0.4 mg capsule 0.4 mg PO DAILY PROSTATE 01/28/22 06/16/22 duloxetine 20 mg capsule,delayed 20 mg PO DAILY Depression 05/29/22 06/16/22 release mometasone 200 mcg/actuation HFA 2 puff inhalation BID Breathing 05/30/22 06/16/22 aerosol inhaler (Asmanex HFA) problems tiotropium 2.5 mcg-olodaterol 2.5 2 puff inhalation DAILY soa 05/30/22 06/16/22 mcg/actuation mist for inhalation (Stiolto Respimat) amlodipine 10 mg tablet 10 mg PO DAILY PRN Hypertension 06/16/22 06/16/22 fluoxetine 20 mg capsule 40 mg PO DAILY Depression 06/16/22 06/16/22 insulin regular hum U-500 conc 500 70 unit SQ QACBREAK 06/16/22 06/16/22 unit/mL(3 mL) subcut pen (Humulin R U-500 (Conc) Insulin Kwikpen) losartan 100 mg tablet 100 mg PO DAILY PRN Hypertension 06/16/22 06/16/22 pantoprazole 40 mg tablet,delayed 40 mg PO DAILY PRN GERD 06/16/22 06/16/22 release Previous Rx's Medication Instructions Recorded aspirin 81 mg tablet,delayed 81 mg PO DAILY #30 tabs 05/31/22 release atorvastatin 40 mg tablet 40 mg PO HS #30 tabs 05/31/22 ticagrelor 90 mg tablet (Brilinta) 90 mg PO BID #60 tabs 07/26/22 amoxicillin 875 mg-potassium 1 tab PO Q12H #20 tabs 08/27/22 clavulanate 125 mg tablet benzonatate 100 mg capsule 100 mg PO TIDP PRN Cough #30 caps 08/27/22 methylprednisolone 4 mg tablets in 4 mg PO DIRECTED #21 tabs 08/27/22 a dose pack ciprofloxacin 0.3 %-dexamethasone 2 drp otic (ear) BID 7 days #1 ea 09/02/22 0.1 % ear drops,suspension losartan 100 mg tablet See Rx Instructions .Route 09/22/22 .COMPLEX #90 tabs bisoprolol fumarate 5 mg tablet See Rx Instructions .Route 01/03/23 .COMPLEX #90 tabs cefdinir 300 mg capsule 300 mg PO BID 7 days #14 caps 03/09/23 nirmatrelvir 300 mg (150 mg See Rx Instructions PO .COMPLEX 03/09/23 x2)-ritonavir 100 mg tablet,dose #30 tabs pack (Paxlovid) amoxicillin 875 mg tablet 875 mg PO Q12H #20 tabs 06/17/23 benzonatate 100 mg capsule 100 mg PO TIDP PRN Cough #30 caps 06/17/23 prednisone 20 mg tablet 20 mg PO DAILY 3 days #3 tabs 06/17/23 Allergies Allergy/AdvReac Type Severity Reaction Status Date / Time aspirin [ASPIRIN] Allergy Severe Anaphylaxis Verified 03/09/23 21:11 NSAIDS (Non-Steroidal Allergy Severe Anaphylaxis Verified 03/09/23 21:11 Anti-Inflamma [NSAIDS (NON-STEROIDAL ANTI-INFLAMMA] Sulfa (Sulfonamide Allergy Intermediate Rash Verified 03/09/23 21:11 Antibiotics) [SULFA (SULFONAMIDE ANTIBIOTICS)] [facility] Disclaimer: The information contained in this section may have been updated after the patient was seen, as this information can be updated by other users. 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 BMI 40.0-44.9, adult COPD (chronic obstructive pulmonary disease) Diabetes HLD (hyperlipidemia) HTN (hypertension) SARAI (obstructive sleep apnea) Shingles Surgical History H/O colonoscopy History of total left knee replacement S/P cervical spinal fusion S/P left rotator cuff repair Family History Mother Pancreatic cancer Father COPD (chronic obstructive pulmonary disease) Social History Smoking Status: Never smoker alcohol intake: never current occupational status: other Travel in the last 8 weeks: None ROS Obtained: Yes All systems reviewed & no additional complaints except as documented Constitutional Constitutional: Reports chills and Reports fever(s) Eyes Eyes: Denies eye discharge ENT Ears, Nose, Mouth, and Throat: Reports as per HPI Cardiovascular Cardiovascular: Denies chest pain Respiratory Respiratory: Denies chest congestion and Reports cough Gastrointestinal Gastrointestingal: Reports nausea; Denies abdominal pain, constipation, cramping, diarrhea or vomiting Musculoskeletal Musculoskeletal: Denies arthralgias Integumentary/Breasts Skin/Breast: Denies rash Neurologic Neurologic: Denies paresthesias Physical Exam General General appearance: alert and in no apparent distress Head Head exam: atraumatic, normocephalic and normal inspection Eye Eye exam: Present normal appearance, PERRL and EOMI ENT ENT exam: Present mucous membranes moist and normal external ear exam Expanded ENT Exam TM/Canal exam: Bilateral TM: erythema and bulging Nose exam: Absent sinus tenderness Mouth exam: Present normal external inspection; Absent drooling Teeth exam: Present normal inspection Throat exam: Present tonsillar erythema, tonsillomegaly and tonsillar exudate Neck Neck exam: Present normal inspection, full ROM and trachea midline; Absent tenderness, meningismus or lymphadenopathy Chest Chest inspection: Present normal inspection and symmetric chest wall rise; Absent tenderness Respiratory Respiratory exam: Present normal lung sounds bilaterally; Absent respiratory distress, wheezes or stridor Cardiovascular Cardiovascular exam: Present regular rate and normal rhythm; Absent systolic murmur or diastolic murmur Abdominal Exam Abdominal exam: Present soft and normal bowel sounds; Absent distention, tenderness, guarding, rebound or rigidity Extremities Exam Extremities exam: Present normal inspection and normal capillary refill; Absent calf tenderness Back Exam Back exam: Present normal inspection and full ROM; Absent tenderness, CVA tenderness (R) or CVA tenderness (L) Neurological Exam Neurological exam: Present alert, oriented X3 and CN II-XII intact Psychiatric Psychiatric exam: Present normal affect and normal mood Skin Skin exam: Present warm, dry, intact and normal color Medical Decision Making Medical Records Medical records reviewed: No I reviewed the patient's medical records. Silvino Inquiry Pt receiving controlled substance: No Lab Data Lab results reviewed: Yes I reviewed the patient's lab results.
[2023-06-17 13:31] LABS: UTC Strep Screen (Rapid) Negative (Negative)
[2023-06-17 14:04] VITALS: BP 126/76; PULSE 93; RESP 20; TEMP 36.4; O2SAT 95
== END 2023-06-17 14:07 | disposition home or self-care (01) ==
PROVIDERS: Emergency Provider Nurse Practitioner Family
DX: J02.9 Acute pharyngitis, unspecified (principal); R05.9 Cough, unspecified; R68.83 Chills (without fever); J44.9 Chronic obstructive pulmonary disease, unspecified; I10 Essential (primary) hypertension; E78.5 Hyperlipidemia, unspecified; E11.9 Type 2 diabetes mellitus without complications; Z79.4 Long term (current) use of insulin
CPT/HCPCS: 87880; 99212; 99214; G0463

== ENCOUNTER 2023-06-22 14:59 | Emergency (ER) | payer MEDICARE, BC, SELFPAY ==
[2023-06-22 15:35] VITALS: BP 116/44; PULSE 91; RESP 20; TEMP 37.6; O2SAT 91; BMI 49.5
--- NOTE | 2023-06-22 15:52 | XR_ITS ---
FINAL REPORT CLINICAL HISTORY: cough COMPARISON: 03/09/2023 FINDINGS: Two views of the chest were obtained. The heart size and pulmonary vascularity are within normal limits. The mediastinum is normal. No acute pulmonary abnormality is identified. There is no pneumothorax. The bony thorax is intact. IMPRESSION: No active cardiopulmonary disease. Reviewed, Interpreted and Dictated by Hung Mcintyre III, MD Transcribed by Angelika Lala Authenticated and [facility]
--- NOTE | 2023-06-22 16:11 | EXP.UTC ---
Discharge Plan Disposition Patient Disposition: Home, Self-Care Condition: Good Prescriptions Prescriptions: New azithromycin [azithromycin] 250 mg tablet 250 mg PO DIRECTED Qty: 6 0RF Rx Instructions: Take two (2) tablets on day #1, then one (1) tablet day #2 thru #5 No Action tamsulosin 0.4 mg capsule 0.4 mg PO DAILY albuterol sulfate 90 mcg/actuation HFA aerosol inhaler 2 puff IH Q6HP PRN (Reason: shortness of breath) fluticasone propionate 50 mcg/actuation spray,suspension 1 spray NS DAILYP PRN (Reason: allergies) Patient Comments: USE 1 SPRAY(S) IN EACH NOSTRIL ONCE DAILY Humulin R U-500 (Conc) Kwikpen 500 unit/mL (3 mL) insulin pen 70 unit SQ QACBREAK Rx Instructions: 50 units in PM Brilinta 90 mg tablet 90 mg PO BID Qty: 60 11RF losartan 100 mg tablet See Rx Instructions .ROUTE .COMPLEX Qty: 90 1RF Dose Instruction: TAKE ONE TABLET BY MOUTH ONCE A DAY Rx Instructions: TAKE ONE TABLET BY MOUTH ONCE A DAY bisoprolol fumarate 5 mg tablet See Rx Instructions .ROUTE .COMPLEX Qty: 90 1RF Dose Instruction: TAKE 1 TABLET BY MOUTH ONCE A DAY Rx Instructions: TAKE 1 TABLET BY MOUTH ONCE A DAY gabapentin 600 MG tablet 1,200 mg PO TID Patient Comments: TAKE 2 TABLETS BY MOUTH THREE TIMES DAILY losartan 100 mg tablet 100 mg PO DAILY PRN (Reason: Hypertension) fluoxetine 20 mg capsule 40 mg PO DAILY benzonatate [benzonatate] 100 mg capsule 100 mg PO TIDP PRN (Reason: Cough) Qty: 30 0RF amoxicillin-pot clavulanate 875-125 mg Tablet 1 tab PO Q12H Qty: 20 0RF methylprednisolone 4 mg Tablets,Dose Pack 4 mg PO DIRECTED Qty: 21 0RF ciprofloxacin-dexamethasone 0.3-0.1 % Drops,Suspension 2 drp OTIC (EAR) BID 7 Days Qty: 1 0RF Paxlovid 300 mg (150 mg x 2)-100 mg tablets,dose pack See Rx Instructions .ROUTE .COMPLEX Qty: 30 0RF Rx Instructions: take TWO 150 mg tablets of nirmatrelvir with ONE 100 mg tablet of ritonavir twice daily for 5 days cefdinir 300 mg capsule 300 mg PO BID 7 Days Qty: 14 0RF amoxicillin [amoxicillin] 875 mg tablet 875 mg PO Q12H Qty: 20 0RF benzonatate [benzonatate] 100 mg capsule 100 mg PO TIDP PRN (Reason: Cough) Qty: 30 0RF prednisone [prednisone] 20 mg tablet 20 mg PO DAILY 3 Days Qty: 3 0RF pantoprazole 40 mg tablet,delayed release (DR/EC) 40 mg PO DAILY PRN (Reason: GERD) duloxetine 20 mg capsule,delayed release(DR/EC) 20 mg PO DAILY Asmanex HFA 200 mcg/actuation Hfa Aerosol Inhaler 2 puff INHALATION BID Stiolto Respimat 2.5-2.5 mcg/actuation Mist 2 puff INHALATION DAILY aspirin 81 mg Tablet,Delayed Release (Dr/Ec) 81 mg PO DAILY Qty: 30 0RF atorvastatin 40 mg Tablet 40 mg PO HS Qty: 30 0RF amlodipine 10 mg tablet 10 mg PO DAILY PRN (Reason: Hypertension) Referrals Follow up/Referrals: Jose Thurman II, MD [Primary Care Provider] - See instructions Activity Restrictions/Add. Instructions Additional Instructions/Restrictions: Start antibiotic today. Be sure to complete entire prescription even if feeling better Tylenol and ibuprofen as needed for pain or fever Humidifier/vaporizer/hot steamy shower Follow-up with primary care tomorrow. Follow-up immediately in the ER of the [facility] for new or worsening symptoms or no noticeable improvement over the next 48-72 hours. Stop smoking stop amoxicillin start new antibiotics Instructions Patient Instructions: Acute Bronchitis Discharge ED Provider: Selvin ([facility])Jordi [facility] HPI General Stated complaint: CONGESTION AND COUGH Mode of Arrival: Ambulatory Source of Information: Patient Limitations: No Limitations Time Seen by Provider: 06/22/23 16:11 Description of Symptoms (Recalled from Triage Doc. by RN): coughing, fatigued, and respiratory infection HEENT Symptoms (Recalled from RN notes): Yes Resp Symptoms (Recalled from RN notes): Yes Skin Symptoms (Recalled from RN notes): No MS Symptoms (Recalled from RN notes): No Functional Status (Recalled from RN notes): n/a History of Present Illness Provider Complaint: 68 yr old male presents for weakness, coughing up thick green sputum. pt states he was seen this week and placed on amoxicillin and prednisone but seems to be worse and now sputum has changed to dark thick green. Related Data Home Medications Medication Instructions Recorded Confirmed gabapentin 600 mg tablet 1,200 mg PO TID NEUROPATHY 04/29/19 06/16/22 albuterol sulfate 90 mcg/actuation 2 puff inhalation Q6HP PRN 01/28/22 06/16/22 aerosol inhaler shortness of breath fluticasone propionate 50 1 spray intranasal DAILYP PRN 01/28/22 06/16/22 mcg/actuation nasal allergies spray,suspension tamsulosin 0.4 mg capsule 0.4 mg PO DAILY PROSTATE 01/28/22 06/16/22 duloxetine 20 mg capsule,delayed 20 mg PO DAILY Depression 05/29/22 06/16/22 release mometasone 200 mcg/actuation HFA 2 puff inhalation BID Breathing 05/30/22 06/16/22 aerosol inhaler (Asmanex HFA) problems tiotropium 2.5 mcg-olodaterol 2.5 2 puff inhalation DAILY soa 05/30/22 06/16/22 mcg/actuation mist for inhalation (Stiolto Respimat) amlodipine 10 mg tablet 10 mg PO DAILY PRN Hypertension 06/16/22 06/16/22 fluoxetine 20 mg capsule 40 mg PO DAILY Depression 06/16/22 06/16/22 insulin regular hum U-500 conc 500 70 unit SQ QACBREAK 06/16/22 06/16/22 unit/mL(3 mL) subcut pen (Humulin R U-500 (Conc) Insulin Kwikpen) losartan 100 mg tablet 100 mg PO DAILY PRN Hypertension 06/16/22 06/16/22 pantoprazole 40 mg tablet,delayed 40 mg PO DAILY PRN GERD 06/16/22 06/16/22 release Previous Rx's Medication Instructions Recorded aspirin 81 mg tablet,delayed 81 mg PO DAILY #30 tabs 05/31/22 release atorvastatin 40 mg tablet 40 mg PO HS #30 tabs 05/31/22 ticagrelor 90 mg tablet (Brilinta) 90 mg PO BID #60 tabs 07/26/22 amoxicillin 875 mg-potassium 1 tab PO Q12H #20 tabs 08/27/22 clavulanate 125 mg tablet benzonatate 100 mg capsule 100 mg PO TIDP PRN Cough #30 caps 08/27/22 methylprednisolone 4 mg tablets in 4 mg PO DIRECTED #21 tabs 08/27/22 a dose pack ciprofloxacin 0.3 %-dexamethasone 2 drp otic (ear) BID 7 days #1 ea 09/02/22 0.1 % ear drops,suspension losartan 100 mg tablet See Rx Instructions .Route 09/22/22 .COMPLEX #90 tabs bisoprolol fumarate 5 mg tablet See Rx Instructions .Route 01/03/23 .COMPLEX #90 tabs cefdinir 300 mg capsule 300 mg PO BID 7 days #14 caps 03/09/23 nirmatrelvir 300 mg (150 mg See Rx Instructions PO .COMPLEX 03/09/23 x2)-ritonavir 100 mg tablet,dose #30 tabs pack (Paxlovid) amoxicillin 875 mg tablet 875 mg PO Q12H #20 tabs 06/17/23 benzonatate 100 mg capsule 100 mg PO TIDP PRN Cough #30 caps 06/17/23 prednisone 20 mg tablet 20 mg PO DAILY 3 days #3 tabs 06/17/23 azithromycin 250 mg tablet 250 mg PO DIRECTED #6 tabs 06/22/23 Allergies Allergy/AdvReac Type Severity Reaction Status Date / Time aspirin [ASPIRIN] Allergy Severe Anaphylaxis Verified 03/09/23 21:11 NSAIDS (Non-Steroidal Allergy Severe Anaphylaxis Verified 03/09/23 21:11 Anti-Inflamma [NSAIDS (NON-STEROIDAL ANTI-INFLAMMA] Sulfa (Sulfonamide Allergy Intermediate Rash Verified 03/09/23 21:11 Antibiotics) [SULFA (SULFONAMIDE ANTIBIOTICS)] Worker's Comp Is this a Worker's Comp case?: No [facility] Disclaimer: The information contained in this section may have been updated after the patient was seen, as this information can be updated by other users. 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) Smoking Status: Never smoker alcohol intake: never current occupational status: other Travel in the last 8 weeks: None ROS Obtained: Yes All systems reviewed & no additional complaints except as documented Constitutional Constitutional: Reports system reviewed and no additional complaints, except as documented Eyes Eyes: Reports system reviewed and no additional complaints, except as documented ENT Ears, Nose, Mouth, and Throat: Reports system reviewed and no additional complaints, except as documented Cardiovascular Cardiovascular: Reports system reviewed and no additional complaints, except as documented Respiratory Respiratory: Reports system reviewed and no additional complaints, except as documented, Reports as per HPI, Reports shortness of breath, Reports change in phlegm color, Reports cough, Reports pain with cough and Reports cough with sputum production Gastrointestinal Gastrointestingal: Reports system reviewed and no additional complaints, except as documented Musculoskeletal Musculoskeletal: Reports system reviewed and no additional complaints, except as documented Integumentary/Breasts Skin/Breast: Reports system reviewed and no additional complaints, except as documented Neurologic Neurologic: Reports system reviewed and no additional complaints, except as documented Endocrine Endocrine: Reports system reviewed and no additional complaints, except as documented Hematologic/Lymphatic Henatologic/Lymphatic: Reports system reviewed and no additional complaints, except as documented Allergic/Immunologic Allergic/Immunologic: Reports system reviewed and no additional complaints, except as documented Physical Exam General General appearance: alert and in no apparent distress Head Head exam: atraumatic Eye Eye exam: Present normal appearance and PERRL ENT ENT exam: Present normal exam, normal oropharynx, mucous membranes moist and TM's normal bilaterally Respiratory Respiratory exam: Present other Expanded Respiratory Exam Location: Right: decreased breath sounds and Lower: decreased breath sounds Cardiovascular Cardiovascular exam: Present regular rate and normal rhythm Neurological Exam Neurological exam: Present alert and oriented X3 Skin Skin exam: Present warm Medical Decision Making Medical Records Medical records reviewed: Yes I reviewed the patient's medical records. Silvino Inquiry Pt receiving controlled substance: No Silvino was queried for this patient: No Vital Signs: 06/22/23 15:35 Temperature 99.7 F H Temperature Source Oral Pulse Rate [Right Radial] 91 H Respiratory Rate 20 Blood Pressure [Right Arm] 116/44 L Blood Pressure Mean [Right Arm] 68 Blood Pressure Source [Right Arm] Automatic Cuff Blood Pressure Position [Right Arm] Sitting 02 Sat by Pulse Oximetry 91 L Oxygen Delivery Method Room Air Lab Data Lab results reviewed: Yes I reviewed the patient's lab results. Orders (Tests/Meds): ORDERS Category Date Time Status Chest XR 2 view (NOT portable) [XR chest 2V] Stat Exams 06/22/23 15:52 Taken
[2023-06-22] MEDS: cefTRIAXone 1GM VIAL 1 GM IM (17:11)
[2023-06-22] MEDS: LIDOCAINE 1% 5ML PF VIAL IM (17:11)
[2023-06-22 17:30] VITALS: BP 116/44; PULSE 91; RESP 20; TEMP 37.6; O2SAT 91
== END 2023-06-22 17:30 | disposition home or self-care (01) ==
PROVIDERS: Emergency Provider Nurse Practitioner Family; PCP Internal Medicine
DX: J20.9 Acute bronchitis, unspecified (principal); R05.8 Other specified cough; R09.81 Nasal congestion; R53.83 Other fatigue; J44.9 Chronic obstructive pulmonary disease, unspecified; E78.5 Hyperlipidemia, unspecified; I10 Essential (primary) hypertension; E11.9 Type 2 diabetes mellitus without complications; Z68.42 Body mass index [BMI] 45.0-49.9, adult; Z79.4 Long term (current) use of insulin
CPT/HCPCS: 71046; 96372; 99212; 99214; G0463; J0696

== ENCOUNTER 2023-07-17 17:30 | Emergency (ER) | payer MEDICARE, BC, SELFPAY ==
[2023-07-17 17:45] VITALS: BP 125/74; PULSE 94; RESP 18; TEMP 36.9; O2SAT 96; BMI 49.7
--- NOTE | 2023-07-17 17:59 | EXP.UTC ---
Discharge Plan Disposition Patient Disposition: Home, Self-Care Condition: Good Prescriptions Prescriptions: New benzonatate [benzonatate] 100 mg capsule 100 mg PO TIDP PRN (Reason: Cough) Qty: 30 0RF methylprednisolone 4 mg Tablets,Dose Pack 4 mg PO DIRECTED 6 Days Qty: 21 0RF Rx Instructions: Take 1 pack as directed for 6 days amoxicillin-pot clavulanate 875-125 mg Tablet 1 tab PO Q12H Qty: 20 0RF No Action tamsulosin 0.4 mg capsule 0.4 mg PO DAILY albuterol sulfate 90 mcg/actuation HFA aerosol inhaler 2 puff IH Q6HP PRN (Reason: shortness of breath) fluticasone propionate 50 mcg/actuation spray,suspension 1 spray NS DAILYP PRN (Reason: allergies) Patient Comments: USE 1 SPRAY(S) IN EACH NOSTRIL ONCE DAILY Humulin R U-500 (Conc) Kwikpen 500 unit/mL (3 mL) insulin pen 70 unit SQ QACBREAK Rx Instructions: 50 units in PM Brilinta 90 mg tablet 90 mg PO BID Qty: 60 11RF losartan 100 mg tablet See Rx Instructions .ROUTE .COMPLEX Qty: 90 1RF Dose Instruction: TAKE ONE TABLET BY MOUTH ONCE A DAY Rx Instructions: TAKE ONE TABLET BY MOUTH ONCE A DAY bisoprolol fumarate 5 mg tablet See Rx Instructions .ROUTE .COMPLEX Qty: 30 2RF Dose Instruction: TAKE 1 TABLET BY MOUTH ONCE A DAY Rx Instructions: TAKE 1 TABLET BY MOUTH ONCE A DAY gabapentin 600 MG tablet 1,200 mg PO TID Patient Comments: TAKE 2 TABLETS BY MOUTH THREE TIMES DAILY fluoxetine 20 mg capsule 40 mg PO DAILY pantoprazole 40 mg tablet,delayed release (DR/EC) 40 mg PO DAILY PRN (Reason: GERD) duloxetine 20 mg capsule,delayed release(DR/EC) 20 mg PO DAILY Asmanex HFA 200 mcg/actuation Hfa Aerosol Inhaler 2 puff INHALATION BID Stiolto Respimat 2.5-2.5 mcg/actuation Mist 2 puff INHALATION DAILY aspirin 81 mg Tablet,Delayed Release (Dr/Ec) 81 mg PO DAILY Qty: 30 0RF atorvastatin 40 mg Tablet 40 mg PO HS Qty: 30 0RF amlodipine 10 mg tablet 10 mg PO DAILY PRN (Reason: Hypertension) Referrals Follow up/Referrals: Jose Thurman II, MD [Primary Care Provider] - See instructions Activity Restrictions/Add. Instructions Additional Instructions/Restrictions: Drink plenty of fluids. Take tylenol or ibuprofen for pain or fever. Take the medications as directed. Follow up with your regular doctor. GO TO THE ER FOR ANY WORSENING SYMPTOMS Clinical Impressions Clinical Impression: Sinusitis, Bronchitis Instructions Patient Instructions: Sinusitis, DI for Sinusitis Discharge ED Provider: Keyshawn Hendricks [facility] [place] HPI General Stated complaint: nasal drainage, cough Mode of Arrival: Ambulatory Source of Information: Patient Limitations: No Limitations Time Seen by Provider: 07/17/23 17:59 Description of Symptoms (Recalled from Triage Doc. by RN): Pt has chest cold, runny nose. HEENT Symptoms (Recalled from RN notes): Yes Resp Symptoms (Recalled from RN notes): No Skin Symptoms (Recalled from RN notes): No MS Symptoms (Recalled from RN notes): No Functional Status (Recalled from RN notes): n/a History of Present Illness Provider Complaint: He states that for the past 3 days he has had worsening sinus congestion. Related Data Home Medications Medication Instructions Recorded Confirmed gabapentin 600 mg tablet 1,200 mg PO TID NEUROPATHY 04/29/19 06/16/22 albuterol sulfate 90 mcg/actuation 2 puff inhalation Q6HP PRN 01/28/22 06/16/22 aerosol inhaler shortness of breath fluticasone propionate 50 1 spray intranasal DAILYP PRN 01/28/22 06/16/22 mcg/actuation nasal allergies spray,suspension tamsulosin 0.4 mg capsule 0.4 mg PO DAILY PROSTATE 01/28/22 06/16/22 duloxetine 20 mg capsule,delayed 20 mg PO DAILY Depression 05/29/22 06/16/22 release mometasone 200 mcg/actuation HFA 2 puff inhalation BID Breathing 05/30/22 06/16/22 aerosol inhaler (Asmanex HFA) problems tiotropium 2.5 mcg-olodaterol 2.5 2 puff inhalation DAILY soa 05/30/22 06/16/22 mcg/actuation mist for inhalation (Stiolto Respimat) amlodipine 10 mg tablet 10 mg PO DAILY PRN Hypertension 06/16/22 06/16/22 fluoxetine 20 mg capsule 40 mg PO DAILY Depression 06/16/22 06/16/22 insulin regular hum U-500 conc 500 70 unit SQ QACBREAK 06/16/22 06/16/22 unit/mL(3 mL) subcut pen (Humulin R U-500 (Conc) Insulin Kwikpen) pantoprazole 40 mg tablet,delayed 40 mg PO DAILY PRN GERD 06/16/22 06/16/22 release Previous Rx's Medication Instructions Recorded aspirin 81 mg tablet,delayed 81 mg PO DAILY #30 tabs 05/31/22 release atorvastatin 40 mg tablet 40 mg PO HS #30 tabs 05/31/22 ticagrelor 90 mg tablet (Brilinta) 90 mg PO BID #60 tabs 07/26/22 losartan 100 mg tablet See Rx Instructions .Route 09/22/22 .COMPLEX #90 tabs bisoprolol fumarate 5 mg tablet See Rx Instructions .Route 06/28/23 .COMPLEX #30 tabs amoxicillin 875 mg-potassium 1 tab PO Q12H #20 tabs 07/17/23 clavulanate 125 mg tablet benzonatate 100 mg capsule 100 mg PO TIDP PRN Cough #30 caps 07/17/23 methylprednisolone 4 mg tablets in 4 mg PO DIRECTED 6 days #21 tabs 07/17/23 a dose pack Allergies Allergy/AdvReac Type Severity Reaction Status Date / Time aspirin [ASPIRIN] Allergy Severe Anaphylaxis Verified 07/17/23 17:59 NSAIDS (Non-Steroidal Allergy Severe Anaphylaxis Verified 07/17/23 17:59 Anti-Inflamma [NSAIDS (NON-STEROIDAL ANTI-INFLAMMA] Sulfa (Sulfonamide Allergy Intermediate Rash Verified 07/17/23 17:59 Antibiotics) [SULFA (SULFONAMIDE ANTIBIOTICS)] Worker's Comp Is this a Worker's Comp case?: No [facility] Disclaimer: The information contained in this section may have been updated after the patient was seen, as this information can be updated by other users. 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) Father Mother Pancreatic cancer Mother COPD (chronic obstructive pulmonary disease) Father Social History Smoking Status: Never smoker alcohol intake: never current occupational status: other Travel in the last 8 weeks: None ROS Obtained: Yes All systems reviewed & no additional complaints except as documented Constitutional Constitutional: Reports poor appetite Eyes Eyes: Reports system reviewed and no additional complaints, except as documented ENT Ears, Nose, Mouth, and Throat: Reports as per HPI Cardiovascular Cardiovascular: Reports system reviewed and no additional complaints, except as documented and Denies chest pain Respiratory Respiratory: Denies shortness of breath, Denies chest congestion, Reports cough, Denies stridor and Denies wheezing Gastrointestinal Gastrointestingal: Reports system reviewed and no additional complaints, except as documented; Denies abdominal pain, diarrhea or vomiting Musculoskeletal Musculoskeletal: Reports system reviewed and no additional complaints, except as documented and Denies arthralgias Integumentary/Breasts Skin/Breast: Reports system reviewed and no additional complaints, except as documented and Denies rash Neurologic Neurologic: Denies paresthesias Allergic/Immunologic Allergic/Immunologic: Denies wheezing Physical Exam General General appearance: alert and in no apparent distress Eye Eye exam: Present normal appearance, PERRL and EOMI ENT ENT exam: Present mucous membranes moist and normal external ear exam Expanded ENT Exam External ear exam: Present normal external inspection TM/Canal exam: Bilateral TM: erythema and bulging Nose exam: Absent sinus tenderness Nasal speculum exam: Bilateral: normal Mouth exam: Present normal external inspection; Absent drooling Teeth exam: Present normal inspection Throat exam: Present tonsillar erythema and tonsillomegaly Neck Neck exam: Present normal inspection, full ROM and trachea midline; Absent tenderness, lymphadenopathy or thyromegaly Chest Chest inspection: Present normal inspection and symmetric chest wall rise; Absent tenderness or rash Respiratory Respiratory exam: Present normal lung sounds bilaterally; Absent respiratory distress, wheezes, stridor or accessory muscle use Cardiovascular Cardiovascular exam: Present regular rate, normal rhythm and normal heart sounds Abdominal Exam Abdominal exam: Present soft; Absent distention, tenderness, guarding, rebound or rigidity Extremities Exam Extremities exam: Present normal inspection, full ROM and normal capillary refill; Absent tenderness or calf tenderness Back Exam Back exam: Present normal inspection and full ROM; Absent tenderness Neurological Exam Neurological exam: Present alert and oriented X3 Psychiatric Psychiatric exam: Present normal affect and normal mood Skin Skin exam: Present warm, dry, intact and normal color Lymphatic Lymphatic Findings: no adenopathy Medical Decision Making Medical Records Medical records reviewed: No I reviewed the patient's medical records. Silvino Inquiry Pt receiving controlled substance: No Vital Signs: 07/17/23 17:45 Temperature 98.5 F Temperature Source Oral Pulse Rate [Right Radial] 94 H Respiratory Rate 18 Blood Pressure [Right Arm] 125/74 Blood Pressure Mean [Right Arm] 91 Blood Pressure Source [Right Arm] Automatic Cuff Blood Pressure Position [Right Arm] Sitting 02 Sat by Pulse Oximetry 96 Oxygen Delivery Method Room Air
[2023-07-17 18:12] VITALS: BP 125/74; PULSE 94; RESP 18; TEMP 36.9; O2SAT 96
== END 2023-07-17 18:12 | disposition home or self-care (01) ==
PROVIDERS: Emergency Provider Nurse Practitioner Family; PCP Internal Medicine
DX: J01.90 Acute sinusitis, unspecified (principal); J20.9 Acute bronchitis, unspecified; R09.81 Nasal congestion; R05.9 Cough, unspecified; E11.9 Type 2 diabetes mellitus without complications; E78.5 Hyperlipidemia, unspecified; I10 Essential (primary) hypertension; J44.9 Chronic obstructive pulmonary disease, unspecified; K21.9 Gastro-esophageal reflux disease without esophagitis; Z79.4 Long term (current) use of insulin; Z68.42 Body mass index [BMI] 45.0-49.9, adult
CPT/HCPCS: 99212; 99214; G0463

== ENCOUNTER 2023-09-21 15:00 | Outpatient (RCR) | payer MEDICARE, BC, SELFPAY | END 2023-09-21 16:00 | disposition home or self-care (01) | LOC: PT 15:00 | PROVIDERS: PCP Internal Medicine; Visit Provider Internal Medicine | DX: R41.81 Age-related cognitive decline (principal); R26.89 Other abnormalities of gait and mobility | CPT/HCPCS: 97110; 97112; 97163; 97164; 97530 ==

== ENCOUNTER 2024-01-30 09:20 | Outpatient (CLI) | payer MEDICARE, BC, SELFPAY ==
[2024-01-30 09:43] LABS: Basophils # 0.1 K/mm3 (0-0.2); Basophils % 0.7 % (0.1-2.0); Eosinophils # 0.4 K/mm3 (0.0-0.4); Eosinophils % 3.7 % (0.1-12.0); Hematocrit 46.6 % (42.0-52.0); Hemoglobin 14.4 g/dL (14.1-18.0); Lymphocytes % 20.1 % (10-50); Mean Corpuscular Hemoglobin 30.2 pg (27.0-31.2); Mean Corpuscular Volume 97.3 fl (80-94); Mean Platelet Volume 9.7 fl (7.4-10.4); Monocytes # 0.5 K/mm3 (0.1-1.0); Neutrophils # 7.1 K/mm3 (1.8-7.8); Neutrophils % 70.6 % (37.0-80.0); Platelet Count 242 K/mm3 (142-424); Red Blood Count 4.79 M/mm3 (4.60-6.20); Red Cell Distribution Width 14.8 % (11.5-17.5)
[2024-01-30 09:55] LABS: Microalbumin/Creatinine Ratio 96.8
[2024-01-30 09:58] LABS: Creatinine,Urine Random 111 mg/dL (Not Estab.)
[2024-01-30 10:08] LABS: Albumin Level 4.2 g/dl (3.5-5.0); Chloride 106 mmol/L (98-107); Potassium 4.1 mmoL/L (3.5-5.1); Sodium 139 mmol/L (136-145)
[2024-01-30 10:10] LABS: Blood Urea Nitrogen 24 mg/dl (9-20); Estimated Glomerular Filt Rate 66 ml/min (>60); GFR (African American) 80 ML/MIN (>60)
[2024-01-30 10:11] LABS: Alanine Aminotransferase 27 U/L (12-78); Albumin/Globulin Ratio 1.8 (1.1-1.8); Alkaline Phosphatase 100 U/L (38-126); Anion Gap 7.1 mEq/L (5-15); Aspartate Amino Transferase 27 U/L (17-59); Bilirubin,Total 0.8 mg/dl (0.2-1.3); Calcium 8.7 mg/dl (8.4-10.2); Carbon Dioxide 30 mmol/L (22.0-30.0); Chol/HDL Ratio 3.1 (1-3.5); Cholesterol 145 mg/dl (140-200); Globulin 2.4 g/dL (1.3-3.2); Glucose 169 mg/dl (74-100); HDL Cholesterol 47 mg/dl (40-60); Total Protein,Serum 6.6 g/dl (6.3-8.2); Triglycerides 162 mg/dl (30-150); VLDL Cholesterol 32 mg/dL (0-40)
[2024-01-30 10:22] LABS: Direct LDL Cholesterol 70.23 mg/dL (100-129)
[2024-01-30 10:27] LABS: Free T4 (Free Thyroxine) 0.85 ng/dl (0.78-2.19)
[2024-01-30 10:43] LABS: Thyroid Stimulating Hormone 1.76 uIU/mL (0.465-4.68)
[2024-01-30 11:11] LABS: Prostate Specific Ag Screen 1.9 ng/ml (0.0-4.0)
[2024-02-10 09:42] LABS: Hepatitis C Antibody NON REACTIVE
== END 2024-01-30 23:59 | disposition home or self-care (01) ==
LOC: LAB 09:22
PROVIDERS: PCP Internal Medicine; Visit Provider Internal Medicine
DX: E78.2 Mixed hyperlipidemia (principal); Z12.5 Encounter for screening for malignant neoplasm of prostate; I10 Essential (primary) hypertension; R53.83 Other fatigue; E66.9 Obesity, unspecified; Z68.41 Body mass index [BMI] 40.0-44.9, adult; E11.41 Type 2 diabetes mellitus with diabetic mononeuropathy; Z79.4 Long term (current) use of insulin; Z11.59 Encounter for screening for other viral diseases
CPT/HCPCS: 36415; 80053; 80061; 82043; 82570; 84439; 84443; 85025; 87380; G0103

== ENCOUNTER 2024-03-29 12:55 | Emergency (ER) | payer MEDICARE, BC, SELFPAY ==
--- NOTE | 2024-03-29 13:05 | ED_ITS ---
Discharge Plan Disposition Patient Disposition: Home, Self-Care Condition: Good Prescriptions Prescriptions: New methylprednisolone 4 mg Tablets,Dose Pack 4 mg PO DIRECTED 6 Days Qty: 21 0RF Rx Instructions: Take 1 pack as directed for 6 days amoxicillin-pot clavulanate 875-125 mg Tablet 1 tab PO Q12H Qty: 20 0RF benzonatate 100 mg capsule 100 mg PO TIDP PRN (Reason: Cough) Qty: 30 0RF No Action tamsulosin 0.4 mg capsule 0.4 mg PO DAILY albuterol sulfate 90 mcg/actuation HFA aerosol inhaler 2 puff IH Q6HP PRN (Reason: shortness of breath) fluticasone propionate 50 mcg/actuation spray,suspension 1 spray NS DAILYP PRN (Reason: allergies) Patient Comments: USE 1 SPRAY(S) IN EACH NOSTRIL ONCE DAILY Humulin R U-500 (Conc) Kwikpen 500 unit/mL (3 mL) insulin pen 70 unit SQ QACBREAK Rx Instructions: 50 units in PM Brilinta 90 mg tablet 90 mg PO BID Qty: 60 11RF losartan 100 mg tablet See Rx Instructions .ROUTE .COMPLEX Qty: 90 1RF Dose Instruction: TAKE ONE TABLET BY MOUTH ONCE A DAY Rx Instructions: TAKE ONE TABLET BY MOUTH ONCE A DAY bisoprolol fumarate 5 mg tablet See Rx Instructions .ROUTE .COMPLEX Qty: 30 2RF Dose Instruction: TAKE 1 TABLET BY MOUTH ONCE A DAY Rx Instructions: TAKE 1 TABLET BY MOUTH ONCE A DAY gabapentin 600 MG tablet 1,200 mg PO TID Patient Comments: TAKE 2 TABLETS BY MOUTH THREE TIMES DAILY fluoxetine 20 mg capsule 40 mg PO DAILY pantoprazole 40 mg tablet,delayed release (DR/EC) 40 mg PO DAILY PRN (Reason: GERD) duloxetine 20 mg capsule,delayed release(DR/EC) 20 mg PO DAILY Asmanex HFA 200 mcg/actuation Hfa Aerosol Inhaler 2 puff INHALATION BID Stiolto Respimat 2.5-2.5 mcg/actuation Mist 2 puff INHALATION DAILY aspirin 81 mg Tablet,Delayed Release (Dr/Ec) 81 mg PO DAILY Qty: 30 0RF atorvastatin 40 mg Tablet 40 mg PO HS Qty: 30 0RF amlodipine 10 mg tablet 10 mg PO DAILY PRN (Reason: Hypertension) benzonatate [benzonatate] 100 mg capsule 100 mg PO TIDP PRN (Reason: Cough) Qty: 30 0RF methylprednisolone 4 mg Tablets,Dose Pack 4 mg PO DIRECTED 6 Days Qty: 21 0RF Rx Instructions: Take 1 pack as directed for 6 days amoxicillin-pot clavulanate 875-125 mg Tablet 1 tab PO Q12H Qty: 20 0RF Referrals Follow up/Referrals: Trevor Thurman [Primary Care Provider] - See instructions Activity Restrictions/Add. Instructions Additional Instructions/Restrictions: Drink plenty of fluids. Take tylenol or ibuprofen for pain or fever. Take the medications as directed. Follow up with your regular doctor. GO TO THE ER FOR ANY WORSENING SYMPTOMS Clinical Impressions Clinical Impression: Sinusitis, Pharyngitis Instructions Patient Instructions: DI for Pharyngitis/Tonsillopharyngitis -- Adult, DI for Sinusitis Print Language Print Language: Slovenian Discharge ED Provider: Keyshawn Hendricks [facility] [place] HPI General Stated complaint: sore throat, SOA Time Seen by Provider: 03/29/24 13:05 History of Present Illness Provider Complaint: He states that for the past 3 days he has had worsening sinus congestion, sore throat, chest congestion, and a productive cough. Related Data Home Medications ?Medication ?Instructions ?Recorded ?Confirmed gabapentin 600 mg tablet 1,200 mg PO TID NEUROPATHY 04/29/19 06/16/22 albuterol sulfate 90 mcg/actuation 2 puff inhalation Q6HP PRN 01/28/22 06/16/22 aerosol inhaler shortness of breath fluticasone propionate 50 1 spray intranasal DAILYP PRN 01/28/22 06/16/22 mcg/actuation nasal allergies spray,suspension tamsulosin 0.4 mg capsule 0.4 mg PO DAILY PROSTATE 01/28/22 06/16/22 duloxetine 20 mg capsule,delayed 20 mg PO DAILY Depression 05/29/22 06/16/22 release mometasone 200 mcg/actuation HFA 2 puff inhalation BID Breathing 05/30/22 06/16/22 aerosol inhaler (Asmanex HFA) problems tiotropium 2.5 mcg-olodaterol 2.5 2 puff inhalation DAILY soa 05/30/22 06/16/22 mcg/actuation mist for inhalation (Stiolto Respimat) amlodipine 10 mg tablet 10 mg PO DAILY PRN Hypertension 06/16/22 06/16/22 fluoxetine 20 mg capsule 40 mg PO DAILY Depression 06/16/22 06/16/22 insulin regular hum U-500 conc 500 70 unit SQ QACBREAK 06/16/22 06/16/22 unit/mL(3 mL) subcut pen (Humulin R U-500 (Conc) Insulin Kwikpen) pantoprazole 40 mg tablet,delayed 40 mg PO DAILY PRN GERD 06/16/22 06/16/22 release Previous Rx's ?Medication ?Instructions ?Recorded aspirin 81 mg tablet,delayed 81 mg PO DAILY #30 tabs 05/31/22 release atorvastatin 40 mg tablet 40 mg PO HS #30 tabs 05/31/22 ticagrelor 90 mg tablet (Brilinta) 90 mg PO BID #60 tabs 07/26/22 losartan 100 mg tablet See Rx Instructions .Route 09/22/22 .COMPLEX #90 tabs bisoprolol fumarate 5 mg tablet See Rx Instructions .Route 06/28/23 .COMPLEX #30 tabs amoxicillin 875 mg-potassium 1 tab PO Q12H #20 tabs 07/17/23 clavulanate 125 mg tablet benzonatate 100 mg capsule 100 mg PO TIDP PRN Cough #30 caps 07/17/23 methylprednisolone 4 mg tablets in 4 mg PO DIRECTED 6 days #21 tabs 07/17/23 a dose pack amoxicillin 875 mg-potassium 1 tab PO Q12H #20 tabs 03/29/24 clavulanate 125 mg tablet benzonatate 100 mg capsule 100 mg PO TIDP PRN Cough #30 caps 03/29/24 methylprednisolone 4 mg tablets in 4 mg PO DIRECTED 6 days #21 tabs 03/29/24 a dose pack Allergies Allergy/AdvReac Type Severity Reaction Status Date / Time aspirin [ASPIRIN] Allergy Severe Anaphylaxis Verified 07/17/23 17:59 NSAIDS (Non-Steroidal Allergy Severe Anaphylaxis Verified 07/17/23 17:59 Anti-Inflamma [NSAIDS (NON-STEROIDAL ANTI-INFLAMMA] Sulfa (Sulfonamide Allergy Intermediate Rash Verified 07/17/23 17:59 Antibiotics) [SULFA (SULFONAMIDE ANTIBIOTICS)] [facility] Disclaimer: The information contained in this section may have been updated after the patient was seen, as this information can be updated by other users. 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) H/O colonoscopy History of total left knee replacement S/P cervical spinal fusion S/P left rotator cuff repair Family History , MA[employer]EC[employer] PROFESSOR) Father Mother Pancreatic cancer Mother COPD (chronic obstructive pulmonary disease) Father Social History Smoking Status: Never smoker alcohol intake: never current occupational status: other Travel in the last 8 weeks: None ROS Obtained: Yes All systems reviewed & no additional complaints except as documented Constitutional Constitutional: Reports poor appetite Eyes Eyes: Reports system reviewed and no additional complaints, except as documented ENT Ears, Nose, Mouth, and Throat: Reports as per HPI Cardiovascular Cardiovascular: Reports system reviewed and no additional complaints, except as documented and Denies chest pain Respiratory Respiratory: Denies shortness of breath, Denies chest congestion, Reports cough, Denies stridor and Denies wheezing Gastrointestinal Gastrointestingal: Reports system reviewed and no additional complaints, except as documented; Denies abdominal pain, diarrhea or vomiting Musculoskeletal Musculoskeletal: Reports system reviewed and no additional complaints, except as documented and Denies arthralgias Integumentary/Breasts Skin/Breast: Reports system reviewed and no additional complaints, except as documented and Denies rash Neurologic Neurologic: Denies paresthesias Allergic/Immunologic Allergic/Immunologic: Denies wheezing Physical Exam General General appearance: alert and in no apparent distress Head Head exam: atraumatic, normocephalic and normal inspection Eye Eye exam: Present normal appearance, PERRL and EOMI ENT ENT exam: Present normal exam, normal oropharynx, mucous membranes moist, TM's normal bilaterally and normal external ear exam Neck Neck exam: Present normal inspection, full ROM and trachea midline; Absent meningismus or lymphadenopathy Chest Chest inspection: Present normal inspection and symmetric chest wall rise; Absent tenderness Respiratory Respiratory exam: Present normal lung sounds bilaterally; Absent respiratory distress Cardiovascular Cardiovascular exam: Present regular rate and normal rhythm; Absent JVD Abdominal Exam Abdominal exam: Present soft and normal bowel sounds; Absent distention, tenderness or guarding Extremities Exam Extremities exam: Present normal inspection, full ROM and normal capillary refill; Absent calf tenderness Back Exam Back exam: Present normal inspection; Absent tenderness Neurological Exam Neurological exam: Present alert and oriented X3 Psychiatric Psychiatric exam: Present normal affect and normal mood Skin Skin exam: Present warm, dry, intact and normal color Lymphatic Lymphatic Findings: no adenopathy Medical Decision Making Medical Records Medical records reviewed: No I reviewed the patient's medical records. Screening: Per USPSTF and CDC recommendations, given the prevalence of disease in our region, it is our hospital?s policy to screen for HIV and viral Hepatitis for all patients aged 18 and over and those with ongoing risk factors. Silvino Inquiry Pt receiving controlled substance: No Lab Data Lab results reviewed: Yes I reviewed the patient's lab results.
[2024-03-29 13:11] VITALS: BP 136/71; PULSE 96; RESP 20; TEMP 36.7; O2SAT 95; BMI 47.2
[2024-03-29 13:15] LABS: UTC Strep Screen (Rapid) Negative (Negative)
[2024-03-29 13:54] VITALS: BP 136/71; PULSE 96; RESP 20; TEMP 36.7; O2SAT 95
== END 2024-03-29 13:55 | disposition home or self-care (01) ==
PROVIDERS: Emergency Provider Nurse Practitioner Family; PCP Internal Medicine Infectious Disease
DX: J32.9 Chronic sinusitis, unspecified (principal); J02.9 Acute pharyngitis, unspecified; R06.02 Shortness of breath; R05.8 Other specified cough; R09.89 Other specified symptoms and signs involving the circulatory and respiratory systems
CPT/HCPCS: 87880; 99212; G0381

== ENCOUNTER 2024-05-07 13:32 | Emergency (ER) | payer MEDICARE, BC, SELFPAY ==
[2024-05-07 15:52] VITALS: BP 137/71; PULSE 88; RESP 18; TEMP 36.8; O2SAT 96; BMI 44.6
--- NOTE | 2024-05-07 15:58 | ED_ITS ---
Discharge Plan Disposition Patient Disposition: Home, Self-Care Condition: Good Prescriptions Prescriptions: No Action tamsulosin 0.4 mg capsule 0.4 mg PO DAILY albuterol sulfate 90 mcg/actuation HFA aerosol inhaler 2 puff IH Q6HP PRN (Reason: shortness of breath) fluticasone propionate 50 mcg/actuation spray,suspension 1 spray NS DAILYP PRN (Reason: allergies) Patient Comments: USE 1 SPRAY(S) IN EACH NOSTRIL ONCE DAILY Humulin R U-500 (Conc) Kwikpen 500 unit/mL (3 mL) insulin pen 70 unit SQ QACBREAK Rx Instructions: 50 units in PM Brilinta 90 mg tablet 90 mg PO BID Qty: 60 11RF losartan 100 mg tablet See Rx Instructions .ROUTE .COMPLEX Qty: 90 1RF Dose Instruction: TAKE ONE TABLET BY MOUTH ONCE A DAY Rx Instructions: TAKE ONE TABLET BY MOUTH ONCE A DAY bisoprolol fumarate 5 mg tablet See Rx Instructions .ROUTE .COMPLEX Qty: 30 2RF Dose Instruction: TAKE 1 TABLET BY MOUTH ONCE A DAY Rx Instructions: TAKE 1 TABLET BY MOUTH ONCE A DAY gabapentin 600 MG tablet 1,200 mg PO TID Patient Comments: TAKE 2 TABLETS BY MOUTH THREE TIMES DAILY fluoxetine 20 mg capsule 40 mg PO DAILY pantoprazole 40 mg tablet,delayed release (DR/EC) 40 mg PO DAILY PRN (Reason: GERD) duloxetine 20 mg capsule,delayed release(DR/EC) 20 mg PO DAILY Asmanex HFA 200 mcg/actuation Hfa Aerosol Inhaler 2 puff INHALATION BID Stiolto Respimat 2.5-2.5 mcg/actuation Mist 2 puff INHALATION DAILY aspirin 81 mg Tablet,Delayed Release (Dr/Ec) 81 mg PO DAILY Qty: 30 0RF atorvastatin 40 mg Tablet 40 mg PO HS Qty: 30 0RF amlodipine 10 mg tablet 10 mg PO DAILY PRN (Reason: Hypertension) benzonatate [benzonatate] 100 mg capsule 100 mg PO TIDP PRN (Reason: Cough) Qty: 30 0RF methylprednisolone 4 mg Tablets,Dose Pack 4 mg PO DIRECTED 6 Days Qty: 21 0RF Rx Instructions: Take 1 pack as directed for 6 days amoxicillin-pot clavulanate 875-125 mg Tablet 1 tab PO Q12H Qty: 20 0RF methylprednisolone 4 mg Tablets,Dose Pack 4 mg PO DIRECTED 6 Days Qty: 21 0RF Rx Instructions: Take 1 pack as directed for 6 days amoxicillin-pot clavulanate 875-125 mg Tablet 1 tab PO Q12H Qty: 20 0RF benzonatate 100 mg capsule 100 mg PO TIDP PRN (Reason: Cough) Qty: 30 0RF Referrals Follow up/Referrals: Jose Thurman II, MD [Primary Care Provider] - See instructions Activity Restrictions/Add. Instructions Additional Instructions/Restrictions: *Monitor Temp, Over the counter Motrin or Tylenol as directed/as needed Tylenol every 4 hours and Motrin every 6 hours (as long as your family doctor has told you that you can take it) for fever or pain. and straight to ER if unable to lower temp less than 101.0 after medication given *Warm salt water gargles may help to soothe the throat *Throat Lozenges? *Warm fluids like tea with honey may help to soothe the throat? *Sleep elevated *Humidifier/Vaporizer Your throat swab was sent for culture. Those results are typically sent to your primary care. Be sure to follow up in 2-3 days with your family doctor/primary care physician if no improvement so they can review those result and treat if necessary. If you don?t have a primary care doctor, I recommend you get one but in the mean time, you will have to return to a walk in clinic Follow up IMMEDIATELY for new or worsening symptoms or no Noticeable improvement over the next 48-72 hours. 911 for difficulty breathing or swallowing You were tested for today for COVID19 your test result should be back in the next 24hours, you may check your results on the [facility] Clinical Impressions Clinical Impression: Viral syndrome Instructions Patient Instructions: DI for Viral Syndrome, DI for COVID-19 (Suspected or Confirmed ) Print Language Print Language: Tuvaluan Discharge ED Provider: Madelyn Robin [facility] [place] HPI General Stated complaint: fatigue, dizziness, exp to covid Mode of Arrival: Ambulatory Source of Information: Patient Time Seen by Provider: 05/07/24 15:58 Description of Symptoms (Recalled from Triage Doc. by RN): EXP TO COVID AND STREP HEENT Symptoms (Recalled from RN notes): Yes Resp Symptoms (Recalled from RN notes): Yes Skin Symptoms (Recalled from RN notes): No MS Symptoms (Recalled from RN notes): No Functional Status (Recalled from RN notes): WNL History of Present Illness Provider Complaint: Patient states that he has been having sore scratchy throat, fatigue and feeling achy all over States family member that lives with him tested positive today for strep and COVID wanting to get tested Related Data Home Medications ?Medication ?Instructions ?Recorded ?Confirmed gabapentin 600 mg tablet 1,200 mg PO TID NEUROPATHY 04/29/19 06/16/22 albuterol sulfate 90 mcg/actuation 2 puff inhalation Q6HP PRN 01/28/22 06/16/22 aerosol inhaler shortness of breath fluticasone propionate 50 1 spray intranasal DAILYP PRN 01/28/22 06/16/22 mcg/actuation nasal allergies spray,suspension tamsulosin 0.4 mg capsule 0.4 mg PO DAILY PROSTATE 01/28/22 06/16/22 duloxetine 20 mg capsule,delayed 20 mg PO DAILY Depression 05/29/22 06/16/22 release mometasone 200 mcg/actuation HFA 2 puff inhalation BID Breathing 05/30/22 06/16/22 aerosol inhaler (Asmanex HFA) problems tiotropium 2.5 mcg-olodaterol 2.5 2 puff inhalation DAILY soa 05/30/22 06/16/22 mcg/actuation mist for inhalation (Stiolto Respimat) amlodipine 10 mg tablet 10 mg PO DAILY PRN Hypertension 06/16/22 06/16/22 fluoxetine 20 mg capsule 40 mg PO DAILY Depression 06/16/22 06/16/22 insulin regular hum U-500 conc 500 70 unit SQ QACBREAK 06/16/22 06/16/22 unit/mL(3 mL) subcut pen (Humulin R U-500 (Conc) Insulin Kwikpen) pantoprazole 40 mg tablet,delayed 40 mg PO DAILY PRN GERD 06/16/22 06/16/22 release Previous Rx's ?Medication ?Instructions ?Recorded aspirin 81 mg tablet,delayed 81 mg PO DAILY #30 tabs 05/31/22 release atorvastatin 40 mg tablet 40 mg PO HS #30 tabs 05/31/22 ticagrelor 90 mg tablet (Brilinta) 90 mg PO BID #60 tabs 07/26/22 losartan 100 mg tablet See Rx Instructions .Route 09/22/22 .COMPLEX #90 tabs bisoprolol fumarate 5 mg tablet See Rx Instructions .Route 06/28/23 .COMPLEX #30 tabs amoxicillin 875 mg-potassium 1 tab PO Q12H #20 tabs 07/17/23 clavulanate 125 mg tablet benzonatate 100 mg capsule 100 mg PO TIDP PRN Cough #30 caps 07/17/23 methylprednisolone 4 mg tablets in 4 mg PO DIRECTED 6 days #21 tabs 07/17/23 a dose pack amoxicillin 875 mg-potassium 1 tab PO Q12H #20 tabs 03/29/24 clavulanate 125 mg tablet benzonatate 100 mg capsule 100 mg PO TIDP PRN Cough #30 caps 03/29/24 methylprednisolone 4 mg tablets in 4 mg PO DIRECTED 6 days #21 tabs 03/29/24 a dose pack Allergies Allergy/AdvReac Type Severity Reaction Status Date / Time aspirin (ASPIRIN) Allergy Severe Anaphylaxis Verified 07/17/23 17:59 NSAIDS (Non-Steroidal Allergy Severe Anaphylaxis Verified 07/17/23 17:59 Anti-Inflamma (NSAIDS (NON-STEROIDAL ANTI-INFLAMMA) Sulfa (Sulfonamide Allergy Intermediate Rash Verified 07/17/23 17:59 Antibiotics) (SULFA (SULFONAMIDE ANTIBIOTICS)) Worker's Comp Is this a Worker's Comp case?: No [facility] Disclaimer: The information contained in this section may have been updated after the patient was seen, as this information can be updated by other users. 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 , [employer]) BMI 40.0-44.9, adult COPD (chronic obstructive pulmonary disease) Diabetes HLD (hyperlipidemia) HTN (hypertension) SARAI (obstructive sleep apnea) Shingles Surgical History , [employer]HW[employer] ARCH[employer]) H/O colonoscopy History of total left knee replacement S/P cervical spinal fusion S/P left rotator cuff repair Family History , H[employer]HW[employer] ARCHIT[employer]) Father Mother Pancreatic cancer Mother COPD (chronic obstructive pulmonary disease) Father Social History Smoking Status: Never smoker alcohol intake: never current occupational status: other Travel in the last 8 weeks: None ROS Obtained: Yes All systems reviewed & no additional complaints except as documented and Yes Systems reviewed as appropriate & no additional complaints except as documented Constitutional Constitutional: Reports system reviewed and no additional complaints, except as documented, Reports as per HPI, Reports body ache, Reports fatigue and Reports fever(s) ENT Ears, Nose, Mouth, and Throat: Reports system reviewed and no additional complaints, except as documented, Reports as per HPI and Reports sore throat Cardiovascular Cardiovascular: Reports system reviewed and no additional complaints, except as documented and Reports as per HPI Respiratory Respiratory: Reports system reviewed and no additional complaints, except as documented and Reports as per HPI Gastrointestinal Gastrointestingal: Reports system reviewed and no additional complaints, except as documented and as per HPI Genitourinary Male Genitourinary: Reports system reviewed and no additional complaints, except as documented and Reports as per HPI Musculoskeletal Musculoskeletal: Reports system reviewed and no additional complaints, except as documented Endocrine Endocrine: Reports fatigue Physical Exam General General appearance: alert and in no apparent distress ENT ENT exam: Present mucous membranes moist Expanded ENT Exam Nose exam: Absent sinus tenderness Throat exam: Present tonsillar erythema; Absent tonsillomegaly or tonsillar exudate Respiratory Respiratory exam: Present normal lung sounds bilaterally; Absent respiratory distress or wheezes Cardiovascular Cardiovascular exam: Present regular rate, normal rhythm and normal heart sounds Abdominal Exam Abdominal exam: Present soft and normal bowel sounds; Absent distention or tenderness Neurological Exam Neurological exam: Present alert, oriented X3 and normal gait Medical Decision Making Medical Records Screening: Per USPSTF and CDC recommendations, given the prevalence of disease in our region, it is our hospital?s policy to screen for HIV and viral Hepatitis for all patients aged 18 and over and those with ongoing risk factors. Silvino Inquiry Pt receiving controlled substance: No Silvino was queried for this patient: No Vital Signs: 05/07/24 15:52 Temperature 98.3 F Temperature Source Oral Pulse Rate [Left Radial] 88 Respiratory Rate 18 Blood Pressure [Left Arm] 137/71 Blood Pressure Mean [Left Arm] 93 02 Sat by Pulse Oximetry 96 Lab Data Lab results reviewed: Yes I reviewed the patient's lab results. Orders (Tests/Meds): ORDERS Category Date Time Status Covid-19 Nasal PCR ([facility]) Routine Lab 05/07/24 15:53 Ordered
[2024-05-07 16:10] LABS: UTC Strep Screen (Rapid) Negative (Negative)
[2024-05-07 16:35] VITALS: BP 137/71; PULSE 88; RESP 18; TEMP 36.8
== END 2024-05-07 16:35 | disposition home or self-care (01) ==
PROVIDERS: Emergency Provider Nurse Practitioner; PCP Internal Medicine
DX: B34.9 Viral infection, unspecified (principal)
CPT/HCPCS: 87635; 87880; 99213; G0381

== ENCOUNTER 2024-05-28 19:22 | Emergency (ER) | payer MEDICARE, BC, SELFPAY ==
[2024-05-28 19:43] VITALS: BP 109/58; PULSE 106; RESP 20; TEMP 36.8; O2SAT 93; BMI 46.3
--- NOTE | 2024-05-28 19:45 | ED_ITS ---
Discharge Plan Disposition Patient Disposition: Still a Patient Prescriptions Prescriptions: No Action tamsulosin 0.4 mg capsule 0.4 mg PO DAILY albuterol sulfate 90 mcg/actuation HFA aerosol inhaler 2 puff IH Q6HP PRN (Reason: shortness of breath) fluticasone propionate 50 mcg/actuation spray,suspension 1 spray NS DAILYP PRN (Reason: allergies) Patient Comments: USE 1 SPRAY(S) IN EACH NOSTRIL ONCE DAILY Humulin R U-500 (Conc) Kwikpen 500 unit/mL (3 mL) insulin pen 70 unit SQ QACBREAK Rx Instructions: 50 units in PM Brilinta 90 mg tablet 90 mg PO BID Qty: 60 11RF losartan 100 mg tablet See Rx Instructions .ROUTE .COMPLEX Qty: 90 1RF Dose Instruction: TAKE ONE TABLET BY MOUTH ONCE A DAY Rx Instructions: TAKE ONE TABLET BY MOUTH ONCE A DAY bisoprolol fumarate 5 mg tablet See Rx Instructions .ROUTE .COMPLEX Qty: 30 2RF Dose Instruction: TAKE 1 TABLET BY MOUTH ONCE A DAY Rx Instructions: TAKE 1 TABLET BY MOUTH ONCE A DAY gabapentin 600 MG tablet 1,200 mg PO TID Patient Comments: TAKE 2 TABLETS BY MOUTH THREE TIMES DAILY fluoxetine 20 mg capsule 40 mg PO DAILY pantoprazole 40 mg tablet,delayed release (DR/EC) 40 mg PO DAILY PRN (Reason: GERD) duloxetine 20 mg capsule,delayed release(DR/EC) 20 mg PO DAILY Asmanex HFA 200 mcg/actuation Hfa Aerosol Inhaler 2 puff INHALATION BID Stiolto Respimat 2.5-2.5 mcg/actuation Mist 2 puff INHALATION DAILY aspirin 81 mg Tablet,Delayed Release (Dr/Ec) 81 mg PO DAILY Qty: 30 0RF atorvastatin 40 mg Tablet 40 mg PO HS Qty: 30 0RF amlodipine 10 mg tablet 10 mg PO DAILY PRN (Reason: Hypertension) benzonatate [benzonatate] 100 mg capsule 100 mg PO TIDP PRN (Reason: Cough) Qty: 30 0RF methylprednisolone 4 mg Tablets,Dose Pack 4 mg PO DIRECTED 6 Days Qty: 21 0RF Rx Instructions: Take 1 pack as directed for 6 days amoxicillin-pot clavulanate 875-125 mg Tablet 1 tab PO Q12H Qty: 20 0RF methylprednisolone 4 mg Tablets,Dose Pack 4 mg PO DIRECTED 6 Days Qty: 21 0RF Rx Instructions: Take 1 pack as directed for 6 days amoxicillin-pot clavulanate 875-125 mg Tablet 1 tab PO Q12H Qty: 20 0RF benzonatate 100 mg capsule 100 mg PO TIDP PRN (Reason: Cough) Qty: 30 0RF Referrals Follow up/Referrals: Jose Thurman II, MD [Primary Care Provider] - See instructions Print Language Print Language: Upper Sorbian Discharge ED Provider: Darvin Cueto [facility] [place] HPI General Stated complaint: SOA, O2 high, h/a, weakness, fever Mode of Arrival: Ambulatory Source of Information: Patient Time Seen by Provider: 05/28/24 19:46 Description of Symptoms (Recalled from Triage Doc. by RN): ACHY, FEVERS, SINUS PRESSURE, PEDERSEN, SINUS DRAINAGE X1 WEEK HEENT Symptoms (Recalled from RN notes): Yes Resp Symptoms (Recalled from RN notes): Yes Skin Symptoms (Recalled from RN notes): No MS Symptoms (Recalled from RN notes): No Functional Status (Recalled from RN notes): WNL History of Present Illness Provider Complaint: Patient states that he was exposed to COVID a couple weeks ago but was tested and it was negative States that since last week he has been having sinus congestion and pressure, scratchy throat and hoarseness but has acid reflux and does that sometimes, feeling achy, fatigue and pressure behind his eyes at times. States he was at Physical Therapy earlier today and got a little winded doing his physical therapy but got better after resting and they checked his SPO2 and it was 96% which is higher than it normally is states his lungs has been clear and not having any cough or congestion States he does wear Oxygen at night States this evening he was still not feeling well so he came in to get checked States he had a little fever a couple days ago Related Data Home Medications ?Medication ?Instructions ?Recorded ?Confirmed gabapentin 600 mg tablet 1,200 mg PO TID NEUROPATHY 04/29/19 06/16/22 albuterol sulfate 90 mcg/actuation 2 puff inhalation Q6HP PRN 01/28/22 06/16/22 aerosol inhaler shortness of breath fluticasone propionate 50 1 spray intranasal DAILYP PRN 01/28/22 06/16/22 mcg/actuation nasal allergies spray,suspension tamsulosin 0.4 mg capsule 0.4 mg PO DAILY PROSTATE 01/28/22 06/16/22 duloxetine 20 mg capsule,delayed 20 mg PO DAILY Depression 05/29/22 06/16/22 release mometasone 200 mcg/actuation HFA 2 puff inhalation BID Breathing 05/30/22 06/16/22 aerosol inhaler (Asmanex HFA) problems tiotropium 2.5 mcg-olodaterol 2.5 2 puff inhalation DAILY soa 05/30/22 06/16/22 mcg/actuation mist for inhalation (Stiolto Respimat) amlodipine 10 mg tablet 10 mg PO DAILY PRN Hypertension 06/16/22 06/16/22 fluoxetine 20 mg capsule 40 mg PO DAILY Depression 06/16/22 06/16/22 insulin regular hum U-500 conc 500 70 unit SQ QACBREAK 06/16/22 06/16/22 unit/mL(3 mL) subcut pen (Humulin R U-500 (Conc) Insulin Kwikpen) pantoprazole 40 mg tablet,delayed 40 mg PO DAILY PRN GERD 06/16/22 06/16/22 release Previous Rx's ?Medication ?Instructions ?Recorded aspirin 81 mg tablet,delayed 81 mg PO DAILY #30 tabs 05/31/22 release atorvastatin 40 mg tablet 40 mg PO HS #30 tabs 05/31/22 ticagrelor 90 mg tablet (Brilinta) 90 mg PO BID #60 tabs 07/26/22 losartan 100 mg tablet See Rx Instructions .Route 09/22/22 .COMPLEX #90 tabs bisoprolol fumarate 5 mg tablet See Rx Instructions .Route 06/28/23 .COMPLEX #30 tabs amoxicillin 875 mg-potassium 1 tab PO Q12H #20 tabs 07/17/23 clavulanate 125 mg tablet benzonatate 100 mg capsule 100 mg PO TIDP PRN Cough #30 caps 07/17/23 methylprednisolone 4 mg tablets in 4 mg PO DIRECTED 6 days #21 tabs 07/17/23 a dose pack amoxicillin 875 mg-potassium 1 tab PO Q12H #20 tabs 03/29/24 clavulanate 125 mg tablet benzonatate 100 mg capsule 100 mg PO TIDP PRN Cough #30 caps 03/29/24 methylprednisolone 4 mg tablets in 4 mg PO DIRECTED 6 days #21 tabs 03/29/24 a dose pack Allergies Allergy/AdvReac Type Severity Reaction Status Date / Time aspirin (ASPIRIN) Allergy Severe Anaphylaxis Verified 07/17/23 17:59 NSAIDS (Non-Steroidal Allergy Severe Anaphylaxis Verified 07/17/23 17:59 Anti-Inflamma (NSAIDS (NON-STEROIDAL ANTI-INFLAMMA) Sulfa (Sulfonamide Allergy Intermediate Rash Verified 07/17/23 17:59 Antibiotics) (SULFA (SULFONAMIDE ANTIBIOTICS)) Worker's Comp Is this a Worker's Comp case?: No [facility] Disclaimer: The information contained in this section may have been updated after the patient was seen, as this information can be updated by other users. 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 (Reviewed 06/22/23 @ 16:12 by Jordi Montalvo ([facility]), [employer]OBOROMA OPERATOR) BMI 40.0-44.9, adult COPD (chronic obstructive pulmonary disease) Diabetes HLD (hyperlipidemia) HTN (hypertension) SARAI (obstructive sleep apnea) Shingles Surgical History (Reviewed 06/22/23 @ 16:12 by Jordi Montalvo ([facility]), STROBOROMA OPERATOR) H/O colonoscopy History of total left knee replacement S/P cervical spinal fusion S/P left rotator cuff repair Family History (Reviewed 06/22/23 @ 16:12 by Jordi Montalvo ([facility]), STROBOROMA OPERATOR) Father Mother Pancreatic cancer Mother COPD (chronic obstructive pulmonary disease) Father Social History Smoking Status: Never smoker alcohol intake: never current occupational status: other Travel in the last 8 weeks: None ROS Obtained: Yes All systems reviewed & no additional complaints except as documented and Yes Systems reviewed as appropriate & no additional complaints except as documented Constitutional Constitutional: Reports system reviewed and no additional complaints, except as documented, Reports as per HPI, Reports body ache, Reports chills and Reports fatigue ENT Ears, Nose, Mouth, and Throat: Reports system reviewed and no additional complaints, except as documented, Reports as per HPI, Reports sinus pain, Reports sinus pressure and Reports sore throat (scratchy with hoarse voice) Cardiovascular Cardiovascular: Reports system reviewed and no additional complaints, except as documented, Reports as per HPI and Reports dyspnea (on and off but no right now has hx of COPD) Respiratory Respiratory: Reports system reviewed and no additional complaints, except as documented, Reports as per HPI, Denies shortness of breath, Denies chest congestion, Denies cough and Reports dyspnea (on and off but no right now has hx of COPD) Comments: reports felt a little winded earlier today at PT but subsided after resting Gastrointestinal Gastrointestingal: Reports system reviewed and no additional complaints, except as documented and as per HPI; Denies nausea or vomiting Endocrine Endocrine: Reports fatigue Physical Exam General General appearance: alert and in no apparent distress ENT ENT exam: Present mucous membranes moist Expanded ENT Exam Nose exam: Present sinus tenderness (reports tenderness with palpation) Respiratory Respiratory exam: Present normal lung sounds bilaterally; Absent respiratory distress or wheezes Cardiovascular Cardiovascular exam: Present regular rate, normal rhythm and tachycardia Neurological Exam Neurological exam: Present alert, oriented X3 and normal gait Medical Decision Making Medical Records Screening: Per USPSTF and CDC recommendations, given the prevalence of disease in our region, it is our hospital?s policy to screen for HIV and viral Hepatitis for all patients aged 18 and over and those with ongoing risk factors. Silvino Inquiry Pt receiving controlled substance: No Silvino was queried for this patient: No Vital Signs: 05/28/24 19:43 Temperature 98.2 F Temperature Source Oral Pulse Rate [Left Radial] 106 H Respiratory Rate 20 Blood Pressure [Left Arm] 109/58 L Blood Pressure Mean [Left Arm] 75 02 Sat by Pulse Oximetry 93 L Lab Data Lab results reviewed: Yes I reviewed the patient's lab results. Medical Decision Narrative: Patient reports known exposure to COVID a couple weeks ago from family member that lives in the house with him, States was tested here at [facility] and it was negative then Will do strep, flu and COVID in [facility] After Flu and strep test complete and COVID swab obtained was talking with patient and noticed he flenched and put his hand up to his chest area and then put it down, asked patient if he is having CP at first patient denied CP then he stated he was having some discomfort in his chest area tonight and has been having it on and off since yesterday but didnt tell staff or family, states that he thought it was just gas so didnt say anything to anyone, spoke with patient and due to hx of UT will transfer to the ED for further work up and evaluation Patient agreeable to transfer patient moved to the ED for further work up and evaluation
[2024-05-28 19:58] LABS: UTC Influenza A Antigen Negative (Negative); UTC Strep Screen (Rapid) Negative (Negative)
[2024-05-28 19:59] LABS: UTC Influenza B Antigen Negative (Negative)
--- NOTE | 2024-05-28 20:11 | ECG_ITS ---
APPROVED REPORT Exam: Resting ECG HR:92 bpm ECG Measurements Heart Rate 92 AXES ME 207 P 29 QRSd 176 QRS -32 QT 406 T -4 QTc 455 Conclusion SINUS RHYTHM WITH SINUS ARRHYTHMIA LEFT AXIS DEVIATION [QRS AXIS < -30] RIGHT BUNDLE BRANCH BLOCK [120+ ms QRS DURATION, UPRIGHT V1, 40+ ms S IN I/aVL/V4/V5/V6] VOLTAGE CRITERIA FOR LVH [MEETS CRITERIA IN ONE OF: R(aVL), S(V1), R(V5), R(V5/V6)+S(V1)] ABNORMAL ECG UNCONFIRMED REPORT Electronically signed by : GI CAAL, 05/29/2024 06:44:18
--- NOTE | 2024-05-28 20:12 | XR_ITS ---
PROCEDURE INFORMATION: Exam: XR Chest Exam date and time: 05/28/2024 8:12 PM Age: 69 years old Clinical indication: Cough and shortness of breath; Additional info: mayela BRAN TECHNIQUE: Imaging protocol: Radiologic exam of the chest. Views: 1 view. COMPARISON: CR XR CHEST 2V 08/19/2023 15:48 FINDINGS: Lungs: Unremarkable. No consolidation. Pleural spaces: Unremarkable. No pleural effusion. No pneumothorax. Heart/Mediastinum: Borderline cardiomegaly, which could be projectional. Vasculature: Vascular calcifications. Bones/joints: Postsurgical changes of the cervical spine. IMPRESSION: No acute findings.
[2024-05-28 20:18] VITALS: BP 123/69; PULSE 91; RESP 13; TEMP 36.6; O2SAT 93; BMI 43.4
--- NOTE | 2024-05-28 20:27 | ED_ITS ---
Discharge Plan Disposition Patient Disposition: Home, Self-Care Prescriptions Prescriptions: No Action tamsulosin 0.4 mg capsule 0.4 mg PO DAILY albuterol sulfate 90 mcg/actuation HFA aerosol inhaler 2 puff IH Q6HP PRN (Reason: shortness of breath) fluticasone propionate 50 mcg/actuation spray,suspension 1 spray NS DAILYP PRN (Reason: allergies) Patient Comments: USE 1 SPRAY(S) IN EACH NOSTRIL ONCE DAILY Humulin R U-500 (Conc) Kwikpen 500 unit/mL (3 mL) insulin pen 70 unit SQ QACBREAK Rx Instructions: 50 units in PM Brilinta 90 mg tablet 90 mg PO BID Qty: 60 11RF losartan 100 mg tablet See Rx Instructions .ROUTE .COMPLEX Qty: 90 1RF Dose Instruction: TAKE ONE TABLET BY MOUTH ONCE A DAY Rx Instructions: TAKE ONE TABLET BY MOUTH ONCE A DAY bisoprolol fumarate 5 mg tablet See Rx Instructions .ROUTE .COMPLEX Qty: 30 2RF Dose Instruction: TAKE 1 TABLET BY MOUTH ONCE A DAY Rx Instructions: TAKE 1 TABLET BY MOUTH ONCE A DAY gabapentin 600 MG tablet 1,200 mg PO TID Patient Comments: TAKE 2 TABLETS BY MOUTH THREE TIMES DAILY fluoxetine 20 mg capsule 40 mg PO DAILY pantoprazole 40 mg tablet,delayed release (DR/EC) 40 mg PO DAILY PRN (Reason: GERD) duloxetine 20 mg capsule,delayed release(DR/EC) 20 mg PO DAILY Asmanex HFA 200 mcg/actuation Hfa Aerosol Inhaler 2 puff INHALATION BID Stiolto Respimat 2.5-2.5 mcg/actuation Mist 2 puff INHALATION DAILY aspirin 81 mg Tablet,Delayed Release (Dr/Ec) 81 mg PO DAILY Qty: 30 0RF atorvastatin 40 mg Tablet 40 mg PO HS Qty: 30 0RF amlodipine 10 mg tablet 10 mg PO DAILY PRN (Reason: Hypertension) benzonatate [benzonatate] 100 mg capsule 100 mg PO TIDP PRN (Reason: Cough) Qty: 30 0RF methylprednisolone 4 mg Tablets,Dose Pack 4 mg PO DIRECTED 6 Days Qty: 21 0RF Rx Instructions: Take 1 pack as directed for 6 days amoxicillin-pot clavulanate 875-125 mg Tablet 1 tab PO Q12H Qty: 20 0RF methylprednisolone 4 mg Tablets,Dose Pack 4 mg PO DIRECTED 6 Days Qty: 21 0RF Rx Instructions: Take 1 pack as directed for 6 days amoxicillin-pot clavulanate 875-125 mg Tablet 1 tab PO Q12H Qty: 20 0RF benzonatate 100 mg capsule 100 mg PO TIDP PRN (Reason: Cough) Qty: 30 0RF Referrals Follow up/Referrals: Jose Thurman II, MD [Primary Care Provider] - See instructions Activity Restrictions/Add. Instructions Additional Instructions/Restrictions: Call your family doctor to establish care for this visit to the emergency department and schedule follow-up within 48 hours to ensure improvement. If you have any worsening of your condition or any other concerning signs or symptoms, return to the emergency department or your primary care doctor for further evaluation. Today, sodium 140, potassium 3.8, chloride 104, BUN 32, creatinine 1.6 with GFR 43. Troponin undetectable, NTBNP 269. Bring these results to signal supervisor appointment further. Clinical Impressions Clinical Impression: NICOLAS (acute kidney injury), Shortness of breath Print Language Print Language: Icelandic Discharge ED Provider: Darvin Cueto General Adult HPI <LAKESHA Washington - Last Filed: 05/28/24 22:16> General Chief complaint: Chest Pain Stated complaint: SOA, O2 high, h/a, weakness, fever Time Seen by Provider: 05/28/24 19:46 Mode of Arrival: Ambulatory Source of Information: Patient Description of Symptoms (Recalled from ER Triage Doc. by RN): ACHY, FEVERS, SINUS PRESSURE, PEDERSEN, SINUS DRAINAGE X1 WEEK History of Present Illness HPI narrative: 69-year-old male presents to the emergency department with a 1 week to 10-day history of shortness of breath, generalized malaise, myalgias, headache, congestion and fatigue, 2 weeks ago patient's family member tested positive for COVID-19, thus far patient has tested negative thus far, patient was seen in the urgent care treatment still today tested negative for strep influenza, COVID-19 swab is pending currently. He has had twinges of chest pain , thus prompted to come to the emergency department. He denies any chest pain currently, maximal chest pain with 1 out of 10 it is waxed and waned for the last 1 week to 10 days, patient has abdominal pain nausea vomiting constipation diarrhea, denies hematuria melena hematochezia or hematemesis. Patient's past medical history consistent with COPD, coronary artery disease status post 3 stent placement, he is on dual antiplatelet therapy with Brilinta and aspirin, type 2 diabetes, SARAI, hyperlipidemia, hypertension, GERD. Patient is a former smoker denies alcohol or drug use. Initial triage vitals noted for 93-94% on room air. Onset (ago): week(s) Related Data Home Medications ?Medication ?Instructions ?Recorded ?Confirmed gabapentin 600 mg tablet 1,200 mg PO TID NEUROPATHY 04/29/19 06/16/22 albuterol sulfate 90 mcg/actuation 2 puff inhalation Q6HP PRN 01/28/22 06/16/22 aerosol inhaler shortness of breath fluticasone propionate 50 1 spray intranasal DAILYP PRN 01/28/22 06/16/22 mcg/actuation nasal allergies spray,suspension tamsulosin 0.4 mg capsule 0.4 mg PO DAILY PROSTATE 01/28/22 06/16/22 duloxetine 20 mg capsule,delayed 20 mg PO DAILY Depression 05/29/22 06/16/22 release mometasone 200 mcg/actuation HFA 2 puff inhalation BID Breathing 05/30/22 06/16/22 aerosol inhaler (Asmanex HFA) problems tiotropium 2.5 mcg-olodaterol 2.5 2 puff inhalation DAILY soa 05/30/22 06/16/22 mcg/actuation mist for inhalation (Stiolto Respimat) amlodipine 10 mg tablet 10 mg PO DAILY PRN Hypertension 06/16/22 06/16/22 fluoxetine 20 mg capsule 40 mg PO DAILY Depression 06/16/22 06/16/22 insulin regular hum U-500 conc 500 70 unit SQ QACBREAK 06/16/22 06/16/22 unit/mL(3 mL) subcut pen (Humulin R U-500 (Conc) Insulin Kwikpen) pantoprazole 40 mg tablet,delayed 40 mg PO DAILY PRN GERD 06/16/22 06/16/22 release Previous Rx's ?Medication ?Instructions ?Recorded aspirin 81 mg tablet,delayed 81 mg PO DAILY #30 tabs 05/31/22 release atorvastatin 40 mg tablet 40 mg PO HS #30 tabs 05/31/22 ticagrelor 90 mg tablet (Brilinta) 90 mg PO BID #60 tabs 07/26/22 losartan 100 mg tablet See Rx Instructions .Route 04/05/23 .COMPLEX #90 tabs bisoprolol fumarate 5 mg tablet See Rx Instructions .Route 06/28/23 .COMPLEX #30 tabs amoxicillin 875 mg-potassium 1 tab PO Q12H #20 tabs 07/17/23 clavulanate 125 mg tablet benzonatate 100 mg capsule 100 mg PO TIDP PRN Cough #30 caps 07/17/23 methylprednisolone 4 mg tablets in 4 mg PO DIRECTED 6 days #21 tabs 07/17/23 a dose pack amoxicillin 875 mg-potassium 1 tab PO Q12H #20 tabs 03/29/24 clavulanate 125 mg tablet benzonatate 100 mg capsule 100 mg PO TIDP PRN Cough #30 caps 03/29/24 methylprednisolone 4 mg tablets in 4 mg PO DIRECTED 6 days #21 tabs 03/29/24 a dose pack Allergies Allergy/AdvReac Type Severity Reaction Status Date / Time aspirin (ASPIRIN) Allergy Severe Anaphylaxis Verified 07/17/23 17:59 NSAIDS (Non-Steroidal Allergy Severe Anaphylaxis Verified 07/17/23 17:59 Anti-Inflamma (NSAIDS (NON-STEROIDAL ANTI-INFLAMMA) Sulfa (Sulfonamide Allergy Intermediate Rash Verified 07/17/23 17:59 Antibiotics) (SULFA (SULFONAMIDE ANTIBIOTICS)) [facility] <LAKESHA Washington - Last Filed: 05/28/24 22:16> [facility] Disclaimer: The information contained in this section may have been updated after the patient was seen, as this information can be updated by other users. 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 , TUB[employer] FORMER) BMI 40.0-44.9, adult COPD (chronic obstructive pulmonary disease) Diabetes HLD (hyperlipidemia) HTN (hypertension) SARAI (obstructive sleep apnea) Shingles Surgical History , TUBULAR [employer] FORMER) H/O colonoscopy History of total left knee replacement S/P cervical spinal fusion S/P left rotator cuff repair Family History , TUB[employer] FORMER) Father Mother Pancreatic cancer Mother COPD (chronic obstructive pulmonary disease) Father Social History Smoking Status: Never smoker alcohol intake: never current occupational status: other Travel in the last 8 weeks: None Other 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 Have you received the Flu Vaccine for this season: No Have you received the Pneumonia Vaccine: Yes <LAKESHA Washington - Last Filed: 05/28/24 22:16> ROS Obtained: Yes All systems reviewed & no additional complaints except as documented Physical Exam <LAKESHA Washington - Last Filed: 05/28/24 22:16> General General appearance: alert and in no apparent distress Head Head exam: atraumatic and normocephalic Eye Eye exam: Present normal appearance, PERRL and EOMI Neck Neck exam: Present full ROM; Absent meningismus Chest Chest inspection: Present normal inspection Respiratory Respiratory exam: Absent respiratory distress, wheezes, stridor, accessory muscle use or prolonged expiratory phase Cardiovascular Cardiovascular exam: Present normal rhythm and other (Pulses equal and symmetric in bilateral upper and lower extremities) Abdominal Exam Abdominal exam: Absent distention, tenderness, guarding, rebound or rigidity Extremities Exam Extremities exam: Absent edema Neurological Exam Neurological exam: Present alert Psychiatric Psychiatric exam: Present normal affect Skin Skin exam: Present warm and dry Medical Decision Making <LAKESHA Washington - Last Filed: 05/28/24 22:16> Medical Records Medical records reviewed: Yes I reviewed the patient's medical records. Screening: Per USPSTF and CDC recommendations, given the prevalence of disease in our region, it is our hospital?s policy to screen for HIV and viral Hepatitis for all patients aged 18 and over and those with ongoing risk factors. Silvino Inquiry Pt receiving controlled substance: No Silvino was queried for this patient: No Vital Signs: 05/28/24 19:43 05/28/24 20:18 Temperature 98.2 F 97.9 F Temperature Source Oral Oral Pulse Rate [Left Radial] 106 H 91 H Respiratory Rate 20 13 Blood Pressure [Left Arm] 109/58 L 123/69 Blood Pressure Mean [Left Arm] 75 87 Blood Pressure Source [Left Arm] Automatic Cuff Blood Pressure Position [Left Arm] Supine 02 Sat by Pulse Oximetry 93 L 93 L Oxygen Delivery Method Room Air Lab Data Lab Results 05/28/24 19:46: Influenza Type A Ag Negative, Influenza Type B Ag Negative, Strep Scn Rapid Clinic Negative 05/28/24 20:15: WBC 12.8 H, RBC 4.58 L, Hgb 13.8 L, Hct 41.6 L, MCV 90.9, MCH 30.1, MCHC 33.1, RDW 14.4, Plt Count 229, MPV 8.3, Neut % (Auto) 73.4, Lymph % (Auto) 17.5, Barrow % (Auto) 6.3, Eos % (Auto) 2.3, Baso % (Auto) 0.4, Neut # (Auto) 9.4 H, Lymph # (Auto) 2.3, Barrow # (Auto) 0.8, Eos # (Auto) 0.3, Baso # (Auto) 0.1, PT 10.2, INR 0.90, D-Dimer 0.65 H, Sodium 140, Potassium 3.8, Chloride 104, Carbon Dioxide 28, Anion Gap 11.8, BUN 32 H, Creatinine 1.60 H, Estimated Creat Clear 47, Estimated GFR 43 L, Est GFR ( Amer) 52 L, G lucose 178 H, Calcium 9.1, Magnesium 1.9, Total Bilirubin 0.5, AST 31, ALT 26, Alkaline Phosphatase 82, Troponin I < 0.01, NT-Pro-B Natriuret Pep 269 H, Total Protein 6.7, Albumin 4.2, Globulin 2.5, Albumin/Globulin Ratio 1.7 05/28/24 20:15 05/28/24 20:15 Orders (Tests/Meds): ED MEDICATIONS Generic Name Dose Route Start Last Admin Trade Name Freq PRN Reason Stop Dose Admin Sodium Chloride 1,000 mls @ 999 mls/hr 05/28/24 22:15 05/28/24 22:30 Sod Chlor 0.9% 1000ml Bag IV 05/28/24 23:15 999 mls/hr .Q1H1M ONE Administration Discontinued Medications Generic Name Dose Route Start Last Admin Trade Name Freq PRN Reason Stop Dose Admin Iopamidol 80 ml 05/28/24 21:48 05/28/24 21:49 Iopamidol-370 (76%);100ml Bottle IV 05/28/24 21:49 80 ml ONCE ONE Administration Sodium Chloride 10 ml 05/28/24 21:48 05/28/24 21:49 Sodium Chloride 0.9% 10ml Syr (Rad Only) IV 05/28/24 21:49 10 ml ONCE ONE Administration Sodium Chloride 50 ml 05/28/24 21:48 05/28/24 21:49 0.9 % Sodium Chloride 50 Ml Vial IV 05/28/24 21:49 50 ml ONCE ONE Administration ORDERS Category Date Time Status CTA Chest [CT angio chest PE protocol] Stat Cat Scan 05/28/24 21:33 Completed XR chest portable Stat Exams 05/28/24 20:12 Completed Complete Blood Count Auto Diff Stat Lab 05/28/24 20:15 Completed Comprehensive Metabolic Panel Stat Lab 05/28/24 20:15 Completed Covid-19 Nasal PCR ([facility]) Routine Lab 05/28/24 19:41 Received D-Dimer Stat Lab 05/28/24 20:15 Completed Magnesium Stat Lab 05/28/24 20:15 Completed NT Pro Brain Natriuretic Pep. Stat Lab 05/28/24 20:15 Completed PT INR [Prothrombin Time INR] Stat Lab 05/28/24 20:15 Completed Troponin I Q3H Lab 05/28/24 23:15 Ordered Troponin I Q3H Lab 05/29/24 02:15 Ordered Troponin I Stat Lab 05/28/24 20:15 Completed Strep Screen Confirmation Stat Micro 05/28/24 19:46 Received Medical Decision Narrative: 69-year-old male presents emerged part with shortness of breath fatigue malaise, chest tightness/discomfort for 1 week to 10 days differential diagnose include not limited to viral URI, acute bronchitis, pneumonia, pneumothorax, costochondritis, ACS, cardiac arrhythmia, electro disturbance, gastritis, GERD, COVID-19, PE. Discussed patient case with attending physician Dr. Cueto at shift change will be assuming the patient's care/workup. Obtain basic laboratory studies, full cardiac workup to include troponin, EKGs, proBNP, D-dimer, chest x-ray, CBC is notable for leukocytosis which is mild at 12.8 Erythrocytopenia , hemoglobin hematocrit are decreased at 13.8/41.6. Coags are within normal limits. I along with the attending physician reviewed the patient's EKG, sinus rhythm with sinus arrhythmia, at 92 bpm parable is mildly elongated at 207, QT interval is within normal limits. There is a chronic appearing right bundle branch block. Reviewed the patient's chest x-ray with corresponding radiologic report no acute findings D-dimer is elevated at 0.65 Will obtain CTA chest with and without contrast along for further evaluation/characterization. Acute kidney injury is noted with creatinine of 1.6 and BUN is elevated 32, proBNP is elevated at 269 troponin within normal limits, will give 1 L IV NS. Discussed patient case with attending physician Dr. Cueto at shift change will be assuming the patient's care/workup. Patient's CTA is pending, COVID-19 rapid antigen swab is pending. <Darvin Cueto MD - Last Filed: 05/28/24 23:12> Vital Signs: 05/28/24 19:43 05/28/24 20:18 Temperature 98.2 F 97.9 F Temperature Source Oral Oral Pulse Rate [Left Radial] 106 H 91 H Respiratory Rate 20 13 Blood Pressure [Left Arm] 109/58 L 123/69 Blood Pressure Mean [Left Arm] 75 87 Blood Pressure Source [Left Arm] Automatic Cuff Blood Pressure Position [Left Arm] Supine 02 Sat by Pulse Oximetry 93 L 93 L Oxygen Delivery Method Room Air Lab Data Lab Results 05/28/24 19:46: Influenza Type A Ag Negative, Influenza Type B Ag Negative, Strep Scn Rapid Clinic Negative 05/28/24 20:15: WBC 12.8 H, RBC 4.58 L, Hgb 13.8 L, Hct 41.6 L, MCV 90.9, MCH 30.1, MCHC 33.1, RDW 14.4, Plt Count 229, MPV 8.3, Neut % (Auto) 73.4, Lymph % (Auto) 17.5, Barrow % (Auto) 6.3, Eos % (Auto) 2.3, Baso % (Auto) 0.4, Neut # (Auto) 9.4 H, Lymph # (Auto) 2.3, Barrow # (Auto) 0.8, Eos # (Auto) 0.3, Baso # (Auto) 0.1, PT 10.2, INR 0.90, D-Dimer 0.65 H, Sodium 140, Potassium 3.8, Chloride 104, Carbon Dioxide 28, Anion Gap 11.8, BUN 32 H, Creatinine 1.60 H, Estimated Creat Clear 47, Estimated GFR 43 L, Est GFR ( Amer) 52 L, G lucose 178 H, Calcium 9.1, Magnesium 1.9, Total Bilirubin 0.5, AST 31, ALT 26, Alkaline Phosphatase 82, Troponin I < 0.01, NT-Pro-B Natriuret Pep 269 H, Total Protein 6.7, Albumin 4.2, Globulin 2.5, Albumin/Globulin Ratio 1.7 Orders (Tests/Meds): ED MEDICATIONS Generic Name Dose Route Start Last Admin Trade Name Freq PRN Reason Stop Dose Admin Sodium Chloride 1,000 mls @ 999 mls/hr 05/28/24 22:15 05/28/24 22:30 Sod Chlor 0.9% 1000ml Bag IV 05/28/24 23:15 999 mls/hr .Q1H1M ONE Administration Discontinued Medications Generic Name Dose Route Start Last Admin Trade Name Freq PRN Reason Stop Dose Admin Iopamidol 80 ml 05/28/24 21:48 05/28/24 21:49 Iopamidol-370 (76%);100ml Bottle IV 05/28/24 21:49 80 ml ONCE ONE Administration Sodium Chloride 10 ml 05/28/24 21:48 05/28/24 21:49 Sodium Chloride 0.9% 10ml Syr (Rad Only) IV 05/28/24 21:49 10 ml ONCE ONE Administration Sodium Chloride 50 ml 05/28/24 21:48 05/28/24 21:49 0.9 % Sodium Chloride 50 Ml Vial IV 05/28/24 21:49 50 ml ONCE ONE Administration ORDERS Category Date Time Status CTA Chest [CT angio chest PE protocol] Stat Cat Scan 05/28/24 21:33 Completed XR chest portable Stat Exams 05/28/24 20:12 Completed Complete Blood Count Auto Diff Stat Lab 05/28/24 20:15 Completed Comprehensive Metabolic Panel Stat Lab 05/28/24 20:15 Completed Covid-19 Nasal PCR ([facility]) Routine Lab 05/28/24 19:41 Received D-Dimer Stat Lab 05/28/24 20:15 Completed Magnesium Stat Lab 05/28/24 20:15 Completed NT Pro Brain Natriuretic Pep. Stat Lab 05/28/24 20:15 Completed PT INR [Prothrombin Time INR] Stat Lab 05/28/24 20:15 Completed Troponin I Q3H Lab 05/28/24 23:15 Ordered Troponin I Q3H Lab 05/29/24 02:15 Ordered Troponin I Stat Lab 05/28/24 20:15 Completed Strep Screen Confirmation Stat Micro 05/28/24 19:46 Received Medical Decision Narrative: 69-year-old male presents emerged part with shortness of breath fatigue malaise, chest tightness/discomfort for 1 week to 10 days differential diagnose include not limited to viral URI, acute bronchitis, pneumonia, pneumothorax, costochondritis, ACS, cardiac arrhythmia, electro disturbance, gastritis, GERD, COVID-19, PE. Discussed patient case with attending physician Dr. Cueto at shift change will be assuming the patient's care/workup. Obtain basic laboratory studies, full cardiac workup to include troponin, EKGs, proBNP, D-dimer, chest x-ray, CBC is notable for leukocytosis which is mild at 12.8 Erythrocytopenia , hemoglobin hematocrit are decreased at 13.8/41.6. Coags are within normal limits. I along with the attending physician reviewed the patient's EKG, sinus rhythm with sinus arrhythmia, at 92 bpm parable is mildly elongated at 207, QT interval is within normal limits. There is a chronic appearing right bundle branch block. Reviewed the patient's chest x-ray with corresponding radiologic report no acute findings D-dimer is elevated at 0.65 Will obtain CTA chest with and without contrast along for further evaluation/characterization. Acute kidney injury is noted with creatinine of 1.6 and BUN is elevated 32, proBNP is elevated at 269 troponin within normal limits, will give 1 L IV NS. Discussed patient case with attending physician Dr. Cueto at shift change will be assuming the patient's care/workup. Patient's CTA is pending, COVID-19 rapid antigen swab is pending. I was consulted by the REJI, and we discussed the complexity of the problems being addressed. I approved the treatment and management plan for this patient's care in the Emergency Department, thus performing a substantive portion of the medical decision making. I independently examined and interviewed patient. Patient states he feels much better on my evaluation. I agree with the above. Patient given fluids. Because patient at baseline without signs or symptoms of clinical decompensation, deemed appropriate for discharge. Results were relayed to patient who voiced understanding and were agreeable to outpatient management and follow up. I discussed my clinical impression with patient and answered all questions. At this time, the evidence for any other entities in the differential is insufficient to warrant any further testing or ED observation. This was explained as well. Advisory was given that persistent or worsening symptoms require further evaluation. I confirmed the understanding of this discussion. Critical Care <LAKESHA Washington - Last Filed: 05/28/24 22:16> Critical Care Time Critical Care Time: No
[2024-05-28 20:36] LABS: Basophils # 0.1 K/mm3 (0-0.2); Basophils % 0.4 % (0.1-2.0); Eosinophils # 0.3 K/mm3 (0.0-0.4); Eosinophils % 2.3 % (0.1-12.0); Hematocrit 41.6 % (42.0-52.0); Hemoglobin 13.8 g/dL (14.1-18.0); Lymphocytes # 2.3 K/mm3 (0.7-4.5); Lymphocytes % 17.5 % (10-50); Mean Corpuscular HGB Conc 33.1 g/dL (31.8-35.4); Mean Corpuscular Hemoglobin 30.1 pg (27.0-31.2); Mean Corpuscular Volume 90.9 fl (80-94); Mean Platelet Volume 8.3 fl (7.4-10.4); Monocytes # 0.8 K/mm3 (0.1-1.0); Monocytes % 6.3 % (1.7-9.3); Neutrophils # 9.4 K/mm3 (1.8-7.8); Neutrophils % 73.4 % (37.0-80.0); Platelet Count 229 K/mm3 (142-424); Red Blood Count 4.58 M/mm3 (4.60-6.20); Red Cell Distribution Width 14.4 % (11.5-17.5); White Blood Count 12.8 K/mm3 (4.8-10.8)
[2024-05-28 20:42] LABS: Prothrombin Time 10.2 seconds (10.1-12.5)
[2024-05-28 20:48] LABS: Alanine Aminotransferase 26 U/L (12-78); Albumin Level 4.2 g/dl (3.5-5.0); Albumin/Globulin Ratio 1.7 (1.1-1.8); Alkaline Phosphatase 82 U/L (38-126); Anion Gap 11.8 mEq/L (5-15); Aspartate Amino Transferase 31 U/L (17-59); Bilirubin,Total 0.5 mg/dl (0.2-1.3); Blood Urea Nitrogen 32 mg/dl (9-20); Calcium 9.1 mg/dl (8.4-10.2); Carbon Dioxide 28 mmol/L (22.0-30.0); Chloride 104 mmol/L (98-107); Creatinine Clearance Estimated 47 mL/min (50-200); Estimated Glomerular Filt Rate 43 ml/min (>60); GFR (African American) 52 ML/MIN (>60); Globulin 2.5 g/dL (1.3-3.2); Glucose 178 mg/dl (74-100); Magnesium 1.9 mg/dl (1.6-2.3); Potassium 3.8 mmoL/L (3.5-5.1); Sodium 140 mmol/L (136-145); Total Protein,Serum 6.7 g/dl (6.3-8.2)
[2024-05-28 20:49] LABS: D-Dimer 0.65 ug/mL (0.0-0.5)
[2024-05-28 21:00] LABS: NT Pro Brain Natriuretic Pep. 269 pg/mL (0-125)
[2024-05-28 21:22] LABS: Troponin I < 0.01 ng/ml (0.00-0.034)
--- NOTE | 2024-05-28 21:33 | CT_ITS ---
PROCEDURE INFORMATION: Exam: CTA Chest With Contrast Exam date and time: 05/28/2024 9:48 PM Age: 69 years old Clinical indication: Shortness of breath and other: Chest pain; Additional info: Shortness of air, chest pain TECHNIQUE: Imaging protocol: Computed tomographic angiography of the chest with contrast. Exam focused on the arteries. 3D rendering (Not supervised by radiologist): MIP and/or 3D reconstructed images were created by the technologist. Radiation optimization: All CT scans at this facility use at least one of these dose optimization techniques: automated exposure control; mA and/or kV adjustment per patient size (includes targeted exams where dose is matched to clinical indication); or iterative reconstruction. Contrast material: ISOVUE 370; Contrast volume: 80 ml; Contrast route: INTRAVENOUS (IV); COMPARISON: CT ANGIO CHEST PE PROTOCOL 03/04/2021 22:16 FINDINGS: Pulmonary arteries: No pulmonary emboli. Aorta: The aorta demonstrates moderate atherosclerotic disease. Celiac trunk and mesenteric arteries: Replaced right hepatic artery from the SMA. Contracted gallbladder. Lungs: Minimal scarring and atelectasis in the lower lungs. Pleural spaces: Unremarkable. No pneumothorax. No pleural effusion. Heart: Borderline cardiomegaly. Coronary arteries: Moderate coronary arterial calcification, indicating the presence of coronary artery disease. Lymph nodes: Unremarkable. No enlarged lymph nodes. Intestine: Mild colonic diverticulosis. Bones/joints: Postsurgical changes of the cervical spine. Soft tissues: Unremarkable. Other findings: Stigmata of old granulomatous disease. IMPRESSION: 1. No pulmonary emboli. 2. Moderate coronary arterial calcification, indicating the presence of coronary artery disease. If the patient has associated symptoms, recommend management as per chest pain guidelines. If the patient is asymptomatic, consider reviewing modifiable cardiovascular risk factors and managing as per guidelines for primary prevention.
[2024-05-28] MEDS: SODIUM CHLORIDE 0.9% 10ML SYR (RAD ONLY) 10 ML IV (21:49)
[2024-05-28] MEDS: IOPAMIDOL-370 (76%);100ML BOTTLE 80 ML IV (21:49)
[2024-05-28] MEDS: 0.9 % SODIUM CHLORIDE 50 ML VIAL IV (21:49)
[2024-05-28] MEDS: 0.9 % SODIUM CHLORIDE 1000ML 1,000 ML 999 ML IV (22:30)
[2024-05-28 23:27] VITALS: BP 137/74; PULSE 87; RESP 12; TEMP 37.1; O2SAT 99
== END 2024-05-28 23:34 | disposition home or self-care (01) ==
LOC: UTC 19:53 → ER 20:11
PROVIDERS: Nurse Practitioner; Physician Assistant; Emergency Provider Emergency Medicine; PCP Internal Medicine
DX: N17.9 Acute kidney failure, unspecified (principal); R06.02 Shortness of breath; R51.9 Headache, unspecified; R53.1 Weakness; R50.9 Fever, unspecified; R09.81 Nasal congestion
CPT/HCPCS: 71045; 71275; 80053; 83735; 83880; 84484; 85025; 85378; 85610; 87635; 87804; 87880; 93005; 96360; 96361; 99285; J7030; Q9967

== ENCOUNTER 2024-06-19 15:00 | Outpatient (RCR) | payer MEDICARE, BC, SELFPAY | END 2024-06-19 23:59 | disposition home or self-care (01) | LOC: PT 15:00 | PROVIDERS: PCP Internal Medicine Infectious Disease; Visit Provider Internal Medicine | DX: R26.89 Other abnormalities of gait and mobility (principal); R29.898 Other symptoms and signs involving the musculoskeletal system | CPT/HCPCS: 97110; 97163; 97530 ==

== ENCOUNTER 2024-09-26 21:08 | Emergency (ER) | payer MEDICARE, BC, SELFPAY ==
--- NOTE | 2024-09-26 21:04 | ECG_ITS ---
APPROVED REPORT Exam: Resting ECG HR:92 bpm ECG Measurements Heart Rate 92 AXES KS 215 P 73 QRSd 167 QRS -48 QT 408 T -7 QTc 458 Conclusion SINUS RHYTHM WITH FIRST DEGREE AV BLOCK WITH OCCASIONAL SUPRAVENTRICULAR PREMATURE COMPLEXES RIGHT BUNDLE BRANCH BLOCK [120+ ms QRS DURATION, UPRIGHT V1, 40+ ms S IN I/aVL/V4/V5/V6] INFERIOR MYOCARDIAL INFARCTION , OF INDETERMINATE AGE [40+ ms Q WAVE AND/OR ST/T ABNORMALITY IN II/aVF] ABNORMAL ECG UNCONFIRMED REPORT Electronically signed by : GI CAAL, 09/27/2024 06:25:03
[2024-09-26 21:10] VITALS: BP 157/81; PULSE 94; RESP 16; TEMP 36.6; O2SAT 96; BMI 46.2
--- NOTE | 2024-09-26 21:56 | XR_ITS ---
PROCEDURE INFORMATION: Exam: XR Chest Exam date and time: 09/26/2024 10:21 PM Age: 69 years old Clinical indication: Pain; Chest pressure; Additional info: Cp, SOA TECHNIQUE: Imaging protocol: Radiologic exam of the chest. Views: 1 view. COMPARISON: CT ANGIO CHEST PE PROTOCOL 05/28/2024 9:48 PM FINDINGS: Lungs: Unremarkable. No consolidation. Pleural spaces: Unremarkable. No pleural effusion. No pneumothorax. Heart/Mediastinum: Unremarkable. No cardiomegaly. Vasculature: Unremarkable. Bones/joints: Unremarkable. IMPRESSION: No acute findings.
[2024-09-26 22:00] VITALS: BP 124/72; PULSE 90; RESP 15; O2SAT 94
[2024-09-26 22:03] LABS: Basophils % 0.3 % (0.1-2.0); Eosinophils # 0.3 K/mm3 (0.0-0.4); Hematocrit 42.8 % (42.0-52.0); Hemoglobin 13.7 g/dL (14.1-18.0); Lymphocytes # 2.5 K/mm3 (0.7-4.5); Lymphocytes % 21.5 % (10-50); Mean Corpuscular Hemoglobin 28.9 pg (27.0-31.2); Mean Corpuscular Volume 90.3 fl (80-94); Mean Platelet Volume 10.2 fl (7.4-10.4); Monocytes # 0.8 K/mm3 (0.1-1.0); Monocytes % 6.6 % (1.7-9.3); Neutrophils # 7.8 K/mm3 (1.8-7.8); Neutrophils % 68.1 % (37.0-80.0); Nucleated Red Blood Cells # 0 10^3/uL; Nucleated Red Blood Cells % 0 %; Platelet Count 223 K/mm3 (142-424); Red Blood Count 4.74 M/mm3 (4.60-6.20); Red Cell Distribution Width 14.2 % (11.5-17.5); Red Cell Distribution Width-SD 46.8 fL; White Blood Count 11.4 K/mm3 (4.8-10.8)
--- NOTE | 2024-09-26 22:04 | HMH.EDCP ---
Discharge Plan Disposition Patient Disposition: Home, Self-Care Chief Complaint: Chest Pain Prescriptions Prescriptions: No Action tamsulosin 0.4 mg capsule 0.4 mg PO DAILY albuterol sulfate 90 mcg/actuation HFA aerosol inhaler 2 puff IH Q6HP PRN (Reason: shortness of breath) fluticasone propionate 50 mcg/actuation spray,suspension 1 spray NS DAILYP PRN (Reason: allergies) Patient Comments: USE 1 SPRAY(S) IN EACH NOSTRIL ONCE DAILY Humulin R U-500 (Conc) Kwikpen 500 unit/mL (3 mL) insulin pen 70 unit SQ QACBREAK Rx Instructions: 50 units in PM Brilinta 90 mg tablet 90 mg PO BID Qty: 60 11RF losartan 100 mg tablet See Rx Instructions .ROUTE .COMPLEX Qty: 90 1RF Dose Instruction: TAKE ONE TABLET BY MOUTH ONCE A DAY Rx Instructions: TAKE ONE TABLET BY MOUTH ONCE A DAY bisoprolol fumarate 5 mg tablet See Rx Instructions .ROUTE .COMPLEX Qty: 30 2RF Dose Instruction: TAKE 1 TABLET BY MOUTH ONCE A DAY Rx Instructions: TAKE 1 TABLET BY MOUTH ONCE A DAY gabapentin 600 MG tablet 1,200 mg PO TID Patient Comments: TAKE 2 TABLETS BY MOUTH THREE TIMES DAILY fluoxetine 20 mg capsule 40 mg PO DAILY pantoprazole 40 mg tablet,delayed release (DR/EC) 40 mg PO DAILY PRN (Reason: GERD) duloxetine 20 mg capsule,delayed release(DR/EC) 20 mg PO DAILY Asmanex HFA 200 mcg/actuation Hfa Aerosol Inhaler 2 puff INHALATION BID Stiolto Respimat 2.5-2.5 mcg/actuation Mist 2 puff INHALATION DAILY aspirin 81 mg Tablet,Delayed Release (Dr/Ec) 81 mg PO DAILY Qty: 30 0RF atorvastatin 40 mg Tablet 40 mg PO HS Qty: 30 0RF amlodipine 10 mg tablet 10 mg PO DAILY PRN (Reason: Hypertension) benzonatate [benzonatate] 100 mg capsule 100 mg PO TIDP PRN (Reason: Cough) Qty: 30 0RF methylprednisolone 4 mg Tablets,Dose Pack 4 mg PO DIRECTED 6 Days Qty: 21 0RF Rx Instructions: Take 1 pack as directed for 6 days amoxicillin-pot clavulanate 875-125 mg Tablet 1 tab PO Q12H Qty: 20 0RF methylprednisolone 4 mg Tablets,Dose Pack 4 mg PO DIRECTED 6 Days Qty: 21 0RF Rx Instructions: Take 1 pack as directed for 6 days amoxicillin-pot clavulanate 875-125 mg Tablet 1 tab PO Q12H Qty: 20 0RF benzonatate 100 mg capsule 100 mg PO TIDP PRN (Reason: Cough) Qty: 30 0RF Referrals Follow up/Referrals: Jose Thurman II, MD [Primary Care Provider] - See instructions Quincy Beltran II, MD [Staff Physician] - See instructions Activity Restrictions/Add. Instructions Additional Instructions/Restrictions: Call your family doctor to establish care for this visit to the emergency department and schedule follow-up within 48 hours to ensure improvement. If you have any worsening of your condition or any other concerning signs or symptoms, return to the emergency department or your primary care doctor for further evaluation. Also talk to cardiology regarding this visit to the emergency department. If you continue having this pain, I would contact Dr. Beltran and gastroenterology for upper GI scope. Continue taking Pepcid 20 mg twice daily. Clinical Impressions Clinical Impression: Chest pain, Dyspepsia Print Language Print Language: Emirati Discharge ED Provider: Darvin Cueto [facility] General Chief Complaint: Chest Pain Stated Complaint: chest pain Time Seen by Provider: 09/26/24 21:13 Mode of Arrival: Ambulatory Source of Information: Patient Description of Symptoms (Recalled from ER Triage Doc. by RN): patient states for the past 2-3 days he has had right and left sided chest pain that is dull and aching and intermittent. he took aspirin 81mg before arrival. 07/30 pain History of Present Illness HPI narrative: Please note that above description of symptoms, in this electronic medical record under categorization of recalled from ER triage doctor by RN are reflective of an initial nursing assessment, however, is not reflective of my full history and physical exam that was personally taken and clarified. Consequentially, this preceding description of symptoms, which may include the patient's categorized chief complaint in the EMR, do not reflect my personal clinical impression, and the ultimate description of history of present illness and patient stated complaints should be deferred to this section of the note. Unless stated otherwise or congruent with this section of the note, additional signs, symptoms, or incongruence should be interpreted as inaccurate with my clinical impression. Related Data Home Medications ?Medication ?Instructions ?Recorded ?Confirmed gabapentin 600 mg tablet 1,200 mg PO TID NEUROPATHY 04/29/19 06/16/22 albuterol sulfate 90 mcg/actuation 2 puff inhalation Q6HP PRN 01/28/22 06/16/22 aerosol inhaler shortness of breath fluticasone propionate 50 1 spray intranasal DAILYP PRN 01/28/22 06/16/22 mcg/actuation nasal allergies spray,suspension tamsulosin 0.4 mg capsule 0.4 mg PO DAILY PROSTATE 01/28/22 06/16/22 duloxetine 20 mg capsule,delayed 20 mg PO DAILY Depression 05/29/22 06/16/22 release mometasone 200 mcg/actuation HFA 2 puff inhalation BID Breathing 05/30/22 06/16/22 aerosol inhaler (Asmanex HFA) problems tiotropium 2.5 mcg-olodaterol 2.5 2 puff inhalation DAILY soa 05/30/22 06/16/22 mcg/actuation mist for inhalation (Stiolto Respimat) amlodipine 10 mg tablet 10 mg PO DAILY PRN Hypertension 06/16/22 06/16/22 fluoxetine 20 mg capsule 40 mg PO DAILY Depression 06/16/22 06/16/22 insulin regular hum U-500 conc 500 70 unit SQ QACBREAK 06/16/22 06/16/22 unit/mL(3 mL) subcut pen (Humulin R U-500 (Conc) Insulin Kwikpen) pantoprazole 40 mg tablet,delayed 40 mg PO DAILY PRN GERD 06/16/22 06/16/22 release Previous Rx's ?Medication ?Instructions ?Recorded aspirin 81 mg tablet,delayed 81 mg PO DAILY #30 tabs 05/31/22 release atorvastatin 40 mg tablet 40 mg PO HS #30 tabs 05/31/22 ticagrelor 90 mg tablet (Brilinta) 90 mg PO BID #60 tabs 07/26/22 losartan 100 mg tablet See Rx Instructions .Route 09/22/22 .COMPLEX #90 tabs bisoprolol fumarate 5 mg tablet See Rx Instructions .Route 06/28/23 .COMPLEX #30 tabs amoxicillin 875 mg-potassium 1 tab PO Q12H #20 tabs 07/17/23 clavulanate 125 mg tablet benzonatate 100 mg capsule 100 mg PO TIDP PRN Cough #30 caps 07/17/23 methylprednisolone 4 mg tablets in 4 mg PO DIRECTED 6 days #21 tabs 07/17/23 a dose pack amoxicillin 875 mg-potassium 1 tab PO Q12H #20 tabs 03/29/24 clavulanate 125 mg tablet benzonatate 100 mg capsule 100 mg PO TIDP PRN Cough #30 caps 03/29/24 methylprednisolone 4 mg tablets in 4 mg PO DIRECTED 6 days #21 tabs 03/29/24 a dose pack Allergies Allergy/AdvReac Type Severity Reaction Status Date / Time aspirin (ASPIRIN) Allergy Severe Anaphylaxis Verified 07/17/23 17:59 NSAIDS (Non-Steroidal Allergy Severe Anaphylaxis Verified 07/17/23 17:59 Anti-Inflamma (NSAIDS (NON-STEROIDAL ANTI-INFLAMMA) Sulfa (Sulfonamide Allergy Intermediate Rash Verified 07/17/23 17:59 Antibiotics) (SULFA (SULFONAMIDE ANTIBIOTICS)) [facility] Disclaimer: The information contained in this section may have been updated after the patient was seen, as this information can be updated by other users. 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) Father Mother Pancreatic cancer Mother COPD (chronic obstructive pulmonary disease) Father Social History Smoking Status: Never smoker alcohol intake: never current occupational status: other Travel in the last 8 weeks: None Have you lived/traveled outside US in past 30 days?: No Contact w/someone who lives/traveled outside US past 30 days?: No Exposure to someone with infectious disease in past 14 days?: No Do you have a fever (greater than 100.4 F or 38 C)?: No Have you tested positive for COVID-19: No Exposed to someone with COVID-19 in past 14 days?: No Do you have a sore throat?: No Do you have a cough?: No Do you have any weakness?: No Do you have any diarrhea?: No Are you experiencing any unusual bleeding?: No Do you have any muscle aches/pain?: No Do you have any abdominal pain?: No Are you experiencing loss of taste or smell?: No Other 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 Have you received the Flu Vaccine for this season: No Have you received the Pneumonia Vaccine: Yes ROS Obtained: Yes All systems reviewed & no additional complaints except as documented Physical Exam General General appearance: alert, in no apparent distress and obese Neck Neck exam: Present trachea midline Chest Chest inspection: Present normal inspection and symmetric chest wall rise Respiratory Respiratory exam: Present normal lung sounds bilaterally; Absent respiratory distress, wheezes, stridor, accessory muscle use or prolonged expiratory phase Cardiovascular Cardiovascular exam: Present regular rate, normal rhythm and other (Pulses equal and symmetric in upper and lower extremities) Extremities Exam Extremities exam: Absent edema Neurological Exam Neurological exam: Present alert, oriented X3 and CN II-XII intact Skin Skin exam: Present warm and dry; Absent cyanosis, diaphoresis or pallor HEART Score HEART Score HEART Score assessment performed?: Yes HEART Score: 4 Critical Care Critical Care Time Critical Care Time: No Medical Decision Making Medical Records Medical records reviewed: Yes I reviewed the patient's medical records. Silvino Inquiry Pt receiving controlled substance: No Silvino was queried for this patient: No Vital Signs Vital Signs: 09/26/24 21:10 09/26/24 22:00 Temperature 97.9 F Temperature Source Oral Pulse Rate 90 Pulse Rate [Right] 94 H Respiratory Rate 16 15 Blood Pressure 124/72 Blood Pressure [Right Arm] 157/81 H Blood Pressure Mean [Right Arm] 106 Blood Pressure Source [Right Arm] Automatic Cuff Blood Pressure Position [Right Arm] Supine 02 Sat by Pulse Oximetry 96 94 L Oxygen Delivery Method Room Air Room Air Lab Data Labs: Lab Results 09/26/24 21:10: WBC 11.4 H, RBC 4.74, Hgb 13.7 L, Hct 42.8, MCV 90.3, MCH 28.9, MCHC 32.0, RDW 14.2, Plt Count 223, MPV 10.2, Neut % (Auto) 68.1, Lymph % (Auto) 21.5, [place] % (Auto) 6.6, Eos % (Auto) 3.0, Baso % (Auto) 0.3, Neut # (Auto) 7.8, Lymph # (Auto) 2.5, [place] # (Auto) 0.8, Eos # (Auto) 0.3, Baso # (Auto) 0.0, PT 10.3, INR 0.91, APTT 26.0, Sodium 142, Potassium 4.0, Chloride 102, Carbon Dioxide 31 H, Anion Gap 13.0, BUN 20, Creatinine 1.20, Estimated Creat Clear 59, Estimated GFR 60, Est GFR ( Amer) 72, Glucose 142 H, Calcium 8.8, Total Bilirubin 0.7, AST 27, ALT 22, Alkaline Phosphatase 90, Troponin I < 0.01, Total Protein 7.3, Albumin 4.3, Globulin 3.0, Albumin/Globulin Ratio 1.4, Lipase 48, HCV Ab CASSIUS w/Rflx PCR Qn Negative, HIV Ag/Ab Combo Qual Negative 09/26/24 21:10 09/26/24 21:10 Response Orders (Tests/Meds): ED MEDICATIONS Discontinued Medications Generic Name Dose Route Start Last Admin Trade Name Freq PRN Reason Stop Dose Admin Al Hydrox/Mg Hydrox/Simethicone 30 ml 09/26/24 21:56 09/26/24 22:30 Aluminum/Magnesium/Simethicone 30ml Udc PO 09/26/24 21:57 30 ml ONCE ONE Administration ORDERS Category Date Time Status XR chest portable Stat Exams 09/26/24 21:56 Completed Complete Blood Count Auto Diff Stat Lab 09/26/24 21:10 Completed Comprehensive Metabolic Panel Stat Lab 09/26/24 21:10 Completed HIV Combo Stat Lab 09/26/24 21:10 Completed Hepatitis C Ab Qual. W/ RFX Stat Lab 09/26/24 21:10 Completed Lipase Stat Lab 09/26/24 21:10 Completed PT INR [Prothrombin Time INR] Stat Lab 09/26/24 21:10 Completed PTT [Activated Partial Thrombo Time] Stat Lab 09/26/24 21:10 Completed Troponin I Q3H Lab 09/27/24 01:00 Ordered Troponin I Q3H Lab 09/27/24 04:00 Ordered Troponin I Stat Lab 09/26/24 21:10 Completed MDM Narrative Medical Decision Narrative: 69-year-old male with history of hypertension, hyperlipidemia, COPD not on home oxygen, type 2 diabetes, CAD status post stenting and VT, 5.3 cm thoracic aortic aneurysm presenting with chest pain. Patient states that chest pains have been happening on and off for the past couple of days. He has had 2 episodes in the last 4 days or so. Substernal, do not radiate, acute, nothing particular makes it worse. States that he did take Pepcid and it seemed to ease them up, but did not completely go away. No nausea, vomiting, diaphoresis, neurologic deficits, syncope, fevers, chills, or shortness of breath up from his normal. History was obtained via conversation with patient. On arrival, patient hemodynamically stable, alert, oriented x4, appropriate, GCS 15, moving all extremities spontaneously, pupils equal and reactive to light. Full physical exam performed and significant for well-appearing male no acute distress. Nontachycardic, mildly hypertensive, lungs are clear, cardiac exam without murmurs gallops or rubs. Mild nonpitting lower extremity edema. Differential includes gastritis, PUD, microvascular coronary artery disease, CHF, ACS, VT, coronary artery dissection, pneumothorax, PE, dissection, pericarditis, myocarditis, pneumothorax, aortic aneurysm, pneumonia, bronchitis, among others. Patient was given Maalox for symptomatic management and correction of underlying abnormalities. Patient placed on continuous cardiac monitoring and continuous pulse ox with initial blood pressure 157/81, heart rate 94, saturation 96% on room air. Independent interpretation of EKG shows sinus rhythm 92 bpm with OR interval 215, first-degree AV block. QRS 167 with right bundle branch block morphology and left axis deviation. QTc 458. Workup independently interpreted and significant for nonactionable hematologic labs. Negative troponin and lipase. On independent interpretation of imaging, no acute cardiopulmonary space disease on chest x-ray. Cardiomegaly which appears to be stable. See radiology read for full review of final results. On reevaluation, patient resting comfortably. Given patient presentation, workup, history, this most likely represents gastritis versus esophagitis, possibly esophageal spasms given the intermittent flareups that are severe. Because this could still be cardiac and not acute VT, recommend he follow-up with cardiology. Because patient at baseline without signs or symptoms of clinical decompensation, deemed appropriate for discharge. Results were relayed to patient who voiced understanding and were agreeable to outpatient management and follow up. I discussed my clinical impression with patient and answered all questions. At this time, the evidence for any other entities in the differential is insufficient to warrant any further testing or ED observation. This was explained as well. Advisory was given that persistent or worsening symptoms require further evaluation. I confirmed the understanding of this discussion. Supervisor Assembly Room disclaimer Much of this encounter note is an electronic director business intelligence spoken language to printed text. Electronic director business intelligence of the spoken language may permit errors. Although I have reviewed the note, some errors may still exist.
[2024-09-26 22:07] LABS: Alanine Aminotransferase 22 U/L (12-78); Albumin Level 4.3 g/dl (3.5-5.0); Albumin/Globulin Ratio 1.4 (1.1-1.8); Alkaline Phosphatase 90 U/L (38-126); Aspartate Amino Transferase 27 U/L (17-59); Bilirubin,Total 0.7 mg/dl (0.2-1.3); Blood Urea Nitrogen 20 mg/dl (9-20); Calcium 8.8 mg/dl (8.4-10.2); Carbon Dioxide 31 mmol/L (22.0-30.0); Chloride 102 mmol/L (98-107); Creatinine Clearance Estimated 59 mL/min (50-200); Estimated Glomerular Filt Rate 60 ml/min (>60); GFR (African American) 72 ML/MIN (>60); Glucose 142 mg/dl (74-100); Lipase 48 U/L (23-300); Sodium 142 mmol/L (136-145); Total Protein,Serum 7.3 g/dl (6.3-8.2)
[2024-09-26 22:11] LABS: INR 0.91 (0.9-1.1); Prothrombin Time 10.3 seconds (10.1-12.5)
[2024-09-26 22:20] LABS: Troponin I < 0.01 ng/ml (0.00-0.034)
[2024-09-26] MEDS: ALUMINUM/MAGNESIUM/SIMETHICONE 30ML UDC 30 ML PO (22:30)
[2024-09-26 22:45] LABS: HIV Combo NEGATIVE (Negative)
[2024-09-26 22:54] LABS: Hepatitis C Ab Qual. W/ RFX NEGATIVE (Negative)
[2024-09-26 23:24] VITALS: BP 111/84; PULSE 90; RESP 16; TEMP 36.6; O2SAT 98
--- OUTSIDE RECORDS SUMMARY | 2024-09-27 22:33 | XMS_ITS | Encounter Summary ---
Author Name [facility] [facility] [place] Address [address] [place] [address] Care Team Providers Care Director Treasurer Name Role Phone VERÓNICA LEAHY Primary Care Provider Unavailabl e Insurance Providers: All historical and current Section Date Range: From patient's date of to the date document was created. This section includes the names of all active insurance providers for the patient. Insurance Provider Type of Coverage Plan Name Start of Policy Coverage End of Policy Coverage Group Number Member ID Insurance Provider's Telephone Number Policy Lockett's Name Patient's Relationship to Policy Lockett MEDICARE (WNR) MEDICARE (M) PART A Feb 18, 2019 PART A [id number] GAEL ZAVALA PATIENT MEDICARE (WNR) MEDICARE (M) PART B Feb 18, 2019 PART B [id number] GAEL ZAVALA PATIENT MEDICARE (WNR) MEDICARE (M) PART B Feb 18, 2019 PART B [id number] [phone] [id number] GAEL ZAVALA PATIENT MEDICARE (WNR) MEDICARE (M) PART B Feb 18, 2019 PART B [id number] GAEL ZAVALA PATIENT MEDICARE (WNR) MEDICARE (M) PART A Jul 21, 1993 PART A [id number] GAEL ZAVALA PATIENT MEDICARE (WNR) MEDICARE (M) PART A Jul 21, 1993 PART A [id number] GAEL ZAVALA PATIENT MEDICARE (WNR) MEDICARE (M) PART A Jul 21, 1993 PART A [id number] GAEL ZAVALA PATIENT Selected Encounter This section includes the information on record at [place] for the Encounter. Date/Time Encounter Type Encounter Description Reason Pro vider Source Jan 20, 2024 08:15 AM Outpatient Encounter ADMIN PAT ACTIVTIES (MASNONCT) [facility] Encounter Template Text not used by [place] Plan of Treatment: Future Appointments (+ 6 months) and Future Tests (+/- 45 days) The Plan of Treatment section includes future care activities for the patient from all [place] treatmentfacilities. This section includes future appointments and future orders which are active, pending or scheduled. Future Appointments This section includes appointments that were scheduled to occur 6 months from the date of the Encounter, up to a maximum of 20 appointments. The data comes from all [place] treatment facilities. Appointment Date/Time Appointment Type Appointme nt Facility Name Apr 19, 2024 10:00 AM AMBULATORY - MEDICINE [facility] Apr 19, 2024 11:27 AM AMBULATORY - MEDICINE [facility] Jul 12, 2024 02:15 PM AMBULATORY - MEDICINE [facility] Social History: Smoking Status (Most current) and Tobacco Use (All prior to encounter date) This section includes the most current, and the historical, smoking and tobacco- related health factors from the [place] facility where the Encounter took place. Current Smoking Status This section includes the most current smoking, or tobacco-related health factor, from the [place] facility where the Encounter took place. Date/Time Current Smoking Status Dwight moss Nov 23, 2022 02:30 PM VA-TOBACCO FORMER USER [facility] Tobacco Use History This section includes a history of the smoking, or tobacco-related health factors, that were collected on or before the date of the Encounter. The data comes from the [place] facility where the Encounter took place. Date/Time Smoking Status/Tobacco Use Comment F acility Nov 23, 2022 02:30 PM VA-TOBACCO QUIT 15 YRS OR MORE [facility] Oct 16, 2021 09:30 AM VA-TOBACCO FORMER USER [facility] Oct 16, 2021 09:30 AM VA-TOBACCO QUIT 15 YRS OR MORE [facility] Sep 11, 2020 11:00 AM VA-TOBACCO FORMER USER [facility] Sep 11, 2020 11:00 AM VA-TOBACCO QUIT 5 TO < 15 YRS [facility] May 07, 2019 02:08 PM VA-TOBACCO FORMER USER [facility] May 07, 2019 02:08 PM VA-TOBACCO QUIT 5 TO < 15 YRS [facility] Mar 12, 2010 09:51 AM V9 QUIT TOBACCO >1 2 MO & <7 YRS AGO [facility] Mar 12, 2010 09:51 AM V9 TOBACCO OFFERED [facility] Feb 16, 2008 01:45 PM V9 QUIT TOBACCO IN THE LAST 12 MONTHS [facility] Oct 06, 2006 08:18 AM TOBACCO OFFERRED P T MEDS (PROVIDER) [facility] Oct 06, 2006 08:18 AM V9 CURRENT TOBACCO USER [facility] Oct 06, 2006 08:18 AM V9 TOBACCO OFFERED [facility] Jul 01, 2006 02:16 PM V9 CURRENT TOBACCO USER 1ppd [facility] Jul 02, 2005 02:53 PM HF V9 CURRENT SMOKER 1ppd [facility] Encounter Notes: All associated encounter notes This section contains the clinical notes associated to the Encounter. Date/Time Encounter Note(s) Provider Source Jan 20, 2024 08:21 AM ADDENDUM: LOCAL TITLE: Addendum STANDARD TITLE: ADDENDUM DATE OF NOTE: JAN 20, 2024@08:21:04 ENTRY DATE: JAN 20, 2024@08:21:04 AUTHOR: BELINDA PRECIADO COSIGNER: URGENCY: STATUS: COMPLETED Please mail a copy of the eight point letter dated 01/13/2024 from MONICA case -[id number] to [place] and CG. 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 leader does not require personal care services for a minimum of 6 continuous months based on an inability to perform an ADL and/or a need for supervision, protection or instruction Denial date: 01/13/2024 Staff provided/attempted verbal notification of denial on: ATTEMPTED CONTACT Notification letter was mailed on: 01/23/2024 [facility] staff provided the following document(s): - [facility] [place] Contact Information - Program of General Caregiver Support Services - [employer] Eligibility Criteria Fact Sheet - [place] Caregiver Support Program [employer] Appeal FAQs - [place] Form 10-305 Your Rights to Seek Further Review of [employer]FC Decisions CSP staff provided information on the following resources and supports: - Veterans Benefits Administration (VBA) /tess/ BELINDA PRECIADO LCSW Caregiver Concaver Signed: 01/20/2024 08:20 BELINDA PRECIADO [facility] Jan 20, 2024 08:19 AM CAREGIVER CERTIFIC ATE: LOCAL TITLE: CSP DENIAL NOTE STANDARD TITLE: CAREGIVER CERTIFICATE DATE OF NOTE: JAN 20, 2024@08:19 ENTRY DATE: JAN 20, 2024@08:19:19 AUTHOR: BELINDA PRECIADO EXP COSIGNER: URGENCY: STATUS: COMPLETED CSP DENIAL NOTE Has ADDENDA Caregiver Support Program Denial Note The individual being denied from the Program of Comprehensive Assistance for Family Caregivers is the : MIQUEL ZAVALA Name of Primary Family Caregiver: ROYA MACEDOMACO Reason(s) for denial: - or customer service leader does not require personal care services for a minimum of 6 continuous months based on an inability to perform an ADL and/or a need for supervision, protection or instruction Denial date: 01/13/2024 Staff provided/attempted verbal notification of denial on: ATTEMPTED CONTACT Notification letter was mailed on: 01/23/2024 [facility] staff provided the following document(s): - [facility] [place] Contact Information - Program of General Caregiver Support Services - [employer] Eligibility Criteria Fact Sheet - [place] Caregiver Support Program [employer] Appeal FAQs - [place] Form 10-305 Your Rights to Seek Further Review of PCAFC Decisions [facility] staff provided information on the following resources and supports: - Veterans Benefits Administration (VBA) /tess/ BELINDA PRECIADO LCSW Caregiver Concaver Signed: 01/20/2024 08:20 01/20/2024 ADDENDUM STATUS: COMPLETED Please mail a copy of the eight point letter dated 01/13/2024 from MONICA hinds [id number] to and CG. /tess/ BELINDA PRECIADO LCSW Caregiver Concaver Signed: 01/20/2024 08:21 Receipt Acknowledged By: * AWAITING SIGNATURE * SALVATORE CONTRERAS NATALIE M [place] [facility]
--- OUTSIDE RECORDS SUMMARY | 2024-09-27 22:33 | XMS_ITS | Encounter Summary ---
Author Name [facility] [place] [facility] [facility] [place] Address [address] [place] [address] Care Team Providers Care Data Warehouse Manager Name Role Phone VERÓNICA LEAHY Primary Care [...] PART A Feb 18, 2019 PART A [id number] GAEL ZAVALA PATIENT MEDICARE (WNR) MEDICARE (M) PART B Feb 18, 2019 PART B [id number] GAEL ZAVALA PATIENT MEDICARE (WNR) MEDICARE (M) PART B Feb 18, 2019 PART B [id number] GAEL ZAVALA PATIENT MEDICARE (WNR) MEDICARE (M) PART B Feb 18, 2019 PART B [id number] GAEL ZAVALA PATIENT MEDICARE (WNR) MEDICARE (M) PART A Jul 21, 1993 PART A [id number] 36A GAEL ZAVALA PATIENT MEDICARE (WNR) MEDICARE (M) PART A Jul 21, 1993 PART A [id number] 36A GAEL ZAVALA PATIENT MEDICARE (WNR) MEDICARE (M) PART A Jul 21, 1993 PART A [id number] GAEL ZAVALA PATIENT Selected Encounter This section includes the information on record at [place] for the Encounter. Date/Time Encounter Type Encounter Description Reason Provider Source Apr 19, 2024 11:27 AM MEASURE BLOOD OXYGEN LEVEL RESPIRATORY THERAPY ICD-10-CM J44.9 Chronic obstructive pulmonary disease, unspecified SHADE LOO Encounter Template Text not used by [facility] Assessments - Encounter Diagnoses This section includes the primary and secondary diagnoses documented for the Encounter. Date/Time Primary/Secondary Diagnosis Diagnosis Name Provider Source Apr 19, 2024 11:48 AM PRIMARY Chronic obstructive pulmonary disease, unspecified SHADE LOO-JAVIER Bai [facility] Plan of Treatment: Future Appointments (+ 6 months) and Future Tests (+/- 45 days) The Plan of Treatment section includes future care activities for the patient from all [place] treatmentfacilities. This section includes future appointments and future orders which are active, pending or scheduled. Future Appointments This section includes appointments that were scheduled to occur 6 months from the date of the Encounter, up to a maximum of 20 appointments. The data comes from all [place] treatment facilities. Appointment Date/Time Appointment Type Appointme nt Facility Name Jul 12, 2024 02:15 PM AMBULATORY - [facility]INE [facility] Aug 09, 2024 09:30 AM AMBULATORY - MEDICINE [facility] Sep 06, 2024 02:00 PM AMBULATORY - MEDICINE PSYCHIATRIC Sep 07, 2024 08:30 AM AMBULATORY - MEDICINE [facility] Active, Pending, and Scheduled Orders This section includes a listing of several types of active, pending, and scheduled orders, including clinic medications orders, diagnostic test orders, procedure orders and consult orders; where the start date of the order is 45 days before the date of the Encounter or 45 days after the date of theEncounter. The data comes from all [place] treatment facilities. Test Date/Time Test Type Test Details Facility Name Apr 19, 2024 12:00 AM Laboratory - Chemi stry Order VENOUS BLOOD GAS [id number] VENOUS BLOOD SP [facility] Social History: Smoking Status (Most current) and Tobacco Use (All prior to encounter date) This section includes the most current, and the historical, smoking and tobacco- related health factors from the [place] facility where the Encounter took place. Current Smoking Status This section includes the most current smoking, or tobacco-related health factor, from the [place] facility where the Encounter took place. Date/Time Current Smoking Status Comment Facil ity Dec 25, 1998 09:22 AM NON-TOBACCO USER [facility] Tobacco Use History This section includes a history of the smoking, or tobacco-related health factors, that were collected on or before the date of the Encounter. The data comes from the [place] facility where the Encounter took place. Date/Time Smoking Status/Tobacco Use Comment F acramon Jan 17, 1998 06:10 PM NON-TOBACCO USER [facility] Encounter Notes: All associated encounter notes This section contains the clinical notes associated to the Encounter. Date/Time Encounter Note(s) Provider Source Apr 19, 2024 11:40 AM PULMONARY HOME HEA LT CONSULT: LOCAL TITLE: HOME OXYGEN CONSULT RESPONSE STANDARD TITLE: PULMONARY HOME HEALTH CONSULT DATE OF NOTE: APR 19, 2024@11:40 ENTRY DATE: APR 19, 2024@11:41:32 AUTHOR: SHADE LOO COSIGNER: ARVIND LIPSCOMB URGENCY: STATUS: COMPLETED [place] came in without oxygen >10 minutes. Room air pulse oximetry at rest was 99%, HR 104. Walked patient on room air for 480 feet. Patient stopped 5 times to catch his breath but did not desaturate below 94% (HR 115). Based on this assessment patient does not qualify for oxygen per [place] protocol at this time. reports he has CPAP at home but doesn't wear it. Advised to contact CPAP clinic to see what can be done to enable him to be able to wear it. Patient interested in Pulmonary Rehab at [facility]. Please update 's prescription for use at night only. PRESCRIPTION FOR HOME OXYGEN LPM Continuous: LPM During Exertion: LPM @ Night: 2 LPM PRN: Level of activity: PRIMARY DELIVERY SYSTEM Compressed Gas, Concentrator ADDITIONAL ITEMS Tank Size E Quantity per Month 3 Nasal Cannula, Oxysafe Valve, Humidification, CPAP/BIPAP Oxygen Adapter, Cart Vendor satisfaction: Yes Cleans filter weekly: Yes Delivery Location: Home Requires recertification of prescription and follow-up appointment WITHIN 12 months Date of last visit: September 2023 Expires: 10/18/23 /tess/ SHADE LOO Signed: 04/19/2024 11:48 /tess/ Nicholas LAWSONSJania STAFF PHYSICIAN Cosigned: 04/19/2024 11:55 SHADE LOO-KARLENE [facility]
--- OUTSIDE RECORDS SUMMARY | 2024-09-27 22:33 | XMS_ITS | Encounter Summary ---
Author Name [facility] [facility] [facility] [place] Address [address] [place] [address] Care Team Providers Care Panel Gluer Name Role Phone VERÓNICA LEAHY Primary Care [...] PART A Feb 18, 2019 PART A [id number] GAEL ZAVALA PATIENT MEDICARE (WNR) MEDICARE (M) PART B Feb 18, 2019 PART B [id number] GAEL ZAVALA PATIENT MEDICARE (WNR) MEDICARE (M) PART B Feb 18, 2019 PART B [id number] 36A GAEL ZAVALA PATIENT MEDICARE (WNR) MEDICARE (M) PART B Feb 18, 2019 PART B [id number] GAEL ZAVALA PATIENT MEDICARE (WNR) MEDICARE (M) PART A Jul 21, 1993 PART A [id number] 36A GAEL ZAVALA PATIENT MEDICARE (WNR) MEDICARE (M) PART A Jul 21, 1993 PART A [id number] 36A GAEL ZAVALA PATIENT MEDICARE (WNR) MEDICARE (M) PART A Jul 21, 1993 PART A [id number] GAEL ZAVALA PATIENT Selected Encounter This section includes the information on record at [place] for the Encounter. Date/Time Encounter Type Encounter Description Reason Provider Source Sep 06, 2024 02:00 PM PT EDUCATION NOC INDIVID RESPIRATORY THERAPY ICD-10-CM J44.9 Chronic obstructive pulmonary disease, unspecified BROCK VELÁZQUEZ Augie Encounter Template Text not used by [place] Assessments - Encounter Diagnoses This section includes the primary and secondary diagnoses documented for the Encounter. Date/Time Primary/Secondary Diagnosis Diagnosis Name Provider Source Sep 07, 2024 02:25 PM PRIMARY Chronic obstructive pulmonary disease, unspecified GARCÍA FAROOQ-Bhumika [facility] Plan of Treatment: Future Appointments (+ 6 months) and Future Tests (+/- 45 days) The Plan of Treatment section includes future care activities for the patient [facility] This section includes future appointments and future orders which are active, pending or scheduled. Future Appointments This section includes appointments that were scheduled to occur 6 months from the date of the Encounter, up to a maximum of 20 appointments. The data comes from all [place] treatment [facility]. Appointment Date/Time Appointment Type Appointme nt Facility Name Sep 07, 2024 08:30 AM AMBULATORY - MEDICINE [facility] October 29, 2024 02:00 PM AMBULATORY - NEUROLOGY [facility] Active, Pending, and Scheduled Orders This section includes a listing of several types of active, pending, and scheduled orders, including clinic medications orders, diagnostic test orders, procedure orders and consult orders; where the start date of the order is 45 days before the date of the Encounter or 45 days after the date of theEncounter. The data comes from all [place] treatment [facility]. Test Date/Time Test Type Test Details Facility Name Aug 31, 2024 10:11 AM Consult Order MED CPAP O UTPATIENT Cons Tile Picker's Choice [facility] Social History: Smoking Status (Most current) and Tobacco Use (All prior to encounter date) This section includes the most current, and the historical, smoking and tobacco- related health factors from the [place] facility where the Encounter took place. Current Smoking Status This section includes the most current smoking, or tobacco-related health factor, from the [place] facility where the Encounter took place. Date/Time Current Smoking Status Comment Alondra moss Dec 25, 1998 09:22 AM NON-TOBACCO USER [facility] Tobacco Use History This section includes a history of the smoking, or tobacco-related health factors, that were collected on or before the date of the Encounter. The data comes from the [place] facility where the Encounter took place. Date/Time Smoking Status/Tobacco Use Comment Bernadette urrutia Jan 17, 1998 06:10 PM NON-TOBACCO USER [facility] MARTINEZ [facility]
--- OUTSIDE RECORDS SUMMARY | 2024-09-27 22:33 | XMS_ITS | Encounter Summary ---
Author Name [facility] [place] [facility] [place] [facility] [place] [facility] [place] Address [address] [place] [address] Care Team Providers [employer] Operator Name Role Phone VERÓNICA LEAHY Primary Care [...] PART A Feb 18, 2019 PART A [id number] GAEL ZAVALA PATIENT MEDICARE (WNR) MEDICARE (M) PART B Feb 18, 2019 PART B [id number] GAEL ZAVALA PATIENT MEDICARE (WNR) MEDICARE (M) PART B Feb 18, 2019 PART B [id number] GAEL ZAVALA PATIENT MEDICARE (WNR) MEDICARE (M) PART B Feb 18, 2019 PART B [id number] GAEL ZAVALA PATIENT MEDICARE (WNR) MEDICARE (M) PART A Jul 21, 1993 PART A [id number] GAEL ZAVALA PATIENT MEDICARE (WNR) MEDICARE (M) PART A Jul 21, 1993 PART A [id number] 36A GAEL ZAVALA PATIENT MEDICARE (WNR) MEDICARE (M) PART A Jul 21, 1993 PART A [id number] GAEL ZAVALA PATIENT Selected Encounter This section includes the information on record at [place] for the Encounter. Date/Time Encounter Type Encounter Description Reason Provider Source Dec 29, 2023 02:30 PM OFFICE O/P EST MOD 30 MIN PRIMARY CARE/MEDICINE ICD-10-CM J45.50 Severe persistent asthma, uncomplicated LEAHY,VERÓNICA N IHE Encounter Template Text not used by [place] Assessments - Encounter Diagnoses This section includes the primary and secondary diagnoses documented for the Encounter. Date/Time Primary/Secondary Diagnosis Diagnosis Name Provider Source Dec 29, 2023 03:11 PM PRIMARY Severe persistent asthma, uncomplicated LEAHY,VERÓNICA N [facility] Dec 29, 2023 03:11 PM SECONDARY Allergic rhinitis, unspecified LEAHY,VERÓNICA Zamudio [facility] Dec 29, 2023 03:11 PM SECONDARY Essential (primary) hypertension LEAHY,VERÓNICA N [facility] Dec 29, 2023 03:11 PM SECONDARY Obesity, unspecified LEAHY,VERÓNICA Zamudio [facility] Dec 29, 2023 03:11 PM SECONDARY Seborrheic dermatitis, unspecified LEAHY,VERÓNICA N [facility] Plan of Treatment: Future Appointments (+ 6 months) and Future Tests (+/- 45 days) The Plan of Treatment section includes future care activities for the patient from all [place] treatmentfacilities. This section includes future appointments and future orders which are active, pending or scheduled. Future Appointments This section includes appointments that were scheduled to occur 6 months from the date of the Encounter, up to a maximum of 20 appointments. The data comes from all [place] treatment facilities. Appointment Date/Time Appointment Type Appointme nt Facility Name Jan 18, 2024 09:00 AM AMBULATORY - NONE [place] [facility] Apr 19, 2024 10:00 AM AMBULATORY - MEDICINE [facility] Apr 19, 2024 11:27 AM [facility] Vital Signs: All taken on the encounter date This section contains inpatient and outpatient Vital Signs collected on the date of the Encounter. Date/Time Temperature Pulse Blood Pressure Respiratory Rate SP02 Pain Height Weight Body Mass Index Source Dec 29, 2023 01:33 PM 97.2 91 131/82 95 2 70 322 46 [place] [facility] Social History: Smoking Status (Most current) and Tobacco Use (All prior to encounter date) This section includes the most current, and the historical, smoking and tobacco- related health factors from the [place] facility where the Encounter took place. Current Smoking Status This section includes the most current smoking, or tobacco-related health factor, from the [place] facility where the Encounter took place. Date/Time Current Smoking Status Comment Alondra moss Nov 23, 2022 02:30 PM VA-TOBACCO FORMER USER [facility] Tobacco Use History This section includes a history of the smoking, or tobacco-related health factors, that were collected on or before the date of the Encounter. The data comes from the [place] facility where the Encounter took place. Date/Time Smoking Status/Tobacco Use Comment Bernadette urrutia Nov 23, 2022 02:30 PM VA-TOBACCO QUIT 15 YRS OR MORE [facility] Oct 16, 2021 09:30 AM VA-TOBACCO FORMER USER [facility] Oct 16, 2021 09:30 AM VA-TOBACCO QUIT 15 YRS OR MORE [facility] Sep 11, 2020 11:00 AM VA-TOBACCO FORMER USER [facility] Sep 11, 2020 11:00 AM VA-TOBACCO QUIT 5 TO < 15 YRS [facility] May 07, 2019 02:08 PM VA-TOBACCO FORMER USER [facility] May 07, 2019 02:08 PM VA-TOBACCO QUIT 5 TO < 15 YRS [facility] Mar 12, 2010 09:51 AM V9 QUIT TOBACCO >1 2 MO & <7 YRS AGO [facility] Mar 12, 2010 09:51 AM V9 TOBACCO OFFERED [facility] Feb 16, 2008 01:45 PM V9 QUIT TOBACCO IN THE LAST 12 MONTHS [facility] Oct 06, 2006 08:18 AM TOBACCO OFFERRED P T MEDS (PROVIDER) [facility] Oct 06, 2006 08:18 AM V9 CURRENT TOBACCO USER [facility] Oct 06, 2006 08:18 AM V9 TOBACCO OFFERED [facility] Jul 01, 2006 02:16 PM V9 CURRENT TOBACCO USER 1ppd [facility] Jul 02, 2005 02:53 PM HF V9 CURRENT SMOKER 1ppd [facility] Encounter Notes: All associated encounter notes This section contains the clinical notes associated to the Encounter. Date/Time Encounter Note(s) Provider Source Dec 29, 2023 03:12 PM MEDICATION MGT NOT E: LOCAL TITLE: OUTPATIENT ESSENTIAL MEDICATION LIST FOR REVIEW (EM STANDARD TITLE: MEDICATION MGT NOTE DATE OF NOTE: DEC 29, 2023@15:12 ENTRY DATE: DEC 29, 2023@15:12:27 AUTHOR: VERÓNICA LEAHY EXP COSIGNER: URGENCY: STATUS: COMPLETED Review of medications include: Patient allergies (Remote and Local) and active and pending prescriptions dispensed from this [place] (local) and dispensed from another [place] or [facility] facility (remote and pending) as well as local inpatient orders (pending and active) and clinic medications (IMOs), locally documented non-VA medications and local prescriptions that have or been discontinued in the past 90 days. With the exception of Allergies, if a category is not listed below, it means there were no relevant medications for the patient. ALLERGIES: NONSTEROIDAL ANTI-INFLAMMATORY, BACTRIM, LISINOPRIL, PRAVASTATIN No Remote Allergy/ADR Data available for this patient ACTIVE OUTPATIENT MEDICATIONS LOCAL/REMOTE ALBUTEROL 90MCG (CFC-F) 200D ORAL INHL Directions: INHALE 2 PUFFS BY MOUTH FOUR TIMES A DAY NEEDED FOR BREATHING Quantity: 1 for 30 days Issued: 03/23/23 Filled: 09/27/23 Expires: 03/23/24 Refills: 3 Status: ACTIVE MONTELUKAST NA 10MG TAB Directions: TAKE ONE TABLET BY MOUTH AT BEDTIME FOR ASTHMA Quantity: 90 for 90 days Issued: 04/07/23 Filled: 12/23/23 Expires: 04/07/24 Refills: 0 Status: ACTIVE PREDNISONE 20MG TAB Directions: TAKE TWO TABLETS BY MOUTH DAILY FOR LUNGS Quantity: 20 for 10 days Issued: 09/08/23 Filled: 09/08/23 Expires: 09/08/24 Refills: 1 Status: ACTIVE No remote medications found. PENDING OUTPATIENT MEDICATIONS (LOCAL/REMOTE): KETOCONAZOLE 2% SHAMPOO Directions: SHAMPOO WITH SMALL AMOUNT AFFECTED AREA TWICE PER WEEK Quantity: 120 Special: SHAMPOO WITH SMALL AMOUNT TOP TWICE PER WEEK Status: PENDING No remote medications found. ACTIVE NONVA MEDICATIONS (LOCAL): 14 MUSHROOM COMPLEX CAP/TAB Directions: MOUTH Status: ACTIVE ACETAMINOPHEN 325MG TAB Directions: 650MG MOUTH DAILY NEEDED Status: ACTIVE ALBUTEROL 3/IPRATROP 0.5MG/3ML INHL 3ML Directions: 1 AMP (3ML) NEBULIZER THREE TIMES A DAY Status: ACTIVE ASPIRIN 81MG EC TAB Directions: 81MG MOUTH DAILY Status: ACTIVE ATORVASTATIN CALCIUM TAB 40MG Directions: 40MG MOUTH DAILY Status: ACTIVE DULOXETINE HCL 60MG EC CAP Directions: 60MG MOUTH DAILY Status: ACTIVE EZETIMIBE 10MG TAB Directions: 10MG MOUTH EVERY EVENING Status: ACTIVE FLUOXETINE HCL 20MG CAP Directions: 60MG MOUTH DAILY Status: ACTIVE FLUTICASONE PROP 50MCG 120D NASAL INHL Directions: 2 SPRAYS EACH NOSTRIL DAILY Status: ACTIVE GABAPENTIN 400MG CAP Directions: 1200MG MOUTH THREE TIMES A DAY Status: ACTIVE INSULIN CONC REG 500 UNT/ML*KWIKPEN* INJ Directions: 40 UNITS UNDER THE SKIN EVERY MORNING AND 30 UNITS UNDER THE SKIN Status: ACTIVE LIDOCAINE 5% PATCH Directions: SKIN Status: ACTIVE LOPERAMIDE SUSP,ORAL Directions: MOUTH NEEDED Status: ACTIVE LORATADINE 10MG TAB Directions: 10MG MOUTH DAILY Status: ACTIVE MULTIVITAMIN/MINERALS THERAPEUT CAP/TAB Directions: 1 CAP(S)/TAB MOUTH DAILY Status: ACTIVE SEMAGLUTIDE(WT LOSS) INJ,SOLN Directions: UNDER THE SKIN Status: ACTIVE TICAGRELOR 90MG TAB Directions: 90MG MOUTH TWICE A DAY Status: ACTIVE OUTPATIENT MEDICATIONS (LOCAL)WITHIN 90 DAYS: No local medications found. DISCONTINUED OUTPATIENT MEDICATIONS (LOCAL) WITHIN 90 DAYS: No local medications found. CLINIC MEDICATIONS (LOCAL): No local medications found. /tess/ VERÓNICA LEAHY D.O. STAFF PHYSICIAN Signed: 12/29/2023 15:12 VERÓNICA LEAHY FR[facility]I [facility] Dec 29, 2023 02:05 PM PRIMARY CARE NOTE: LOCAL TITLE: PC PROGRESS NOTE STANDARD TITLE: PRIMARY CARE NOTE DATE OF NOTE: DEC 29, 2023@14:05 ENTRY DATE: DEC 29, 2023@14:05:58 AUTHOR: VERÓNICA LEAHY EXP COSIGNER: URGENCY: STATUS: COMPLETED PC PROGRESS NOTE Has ADDENDA ID:MIQUEL Fisher is a 68 year old MALE for recall appt appt PMHX:-see active problem list and below/htn,dm with dm neuropathy,hx depression,insomnia,hx migraines,chronic pain,LBP,heart attack induced by accidental epinephrine, hx HI, hx neck fracture,SARIA, cad s/p cath and stent-all managed by local pcp,cards and local endo/repeat cscope @ 2024 per pt CC:for f/u asthma/allergies HPI:Here for f/u above. Here with daughter. Using wheelchair. Asthma/allergies stable and followed by [place]. Completed pulm rehab per pt. On MDI's as well. Getting all other care/meds/labs done locally. States was restarted back on asa while in hospital and has been tolerating w/o problems. Also on lipitor now as well and tolerating. BP stable today but was taken off all bp meds due to hypotension/orthostatic hypotentsion per daughter. Was seen by neuro locally for w/u memory loss and w/u ok per daughter. Was told could be related to gabapentin or his cad vs other. See non va med list for update and changes. Has lost wt since last visit and congratulated pt. Has done this intermittent fasting and on ozempic now as well. Going to continue working on dietary and lifestyle modifications along with wt loss and regular exercise as tolerated. Insulin dose changed and last hga1c was 6.2 per pt. Will get us labs done locally for documentation. Does mention has little bumps in scalp that fall off at times and @ eyebrows. No drainage. Has tried OTC tx but not helped. Offered trial ketoconazole shampoo or derm eval and would like to try shampoo and if not better 2-4 weeks will call for derm eval. No new MH complaints today on meds. May get some counseling locally per daughter as they all are still dealing with loss of mother. Offered [facility] help but pt wants [facility] counselor. Both pleasant and no other needs today PSHX:eyelid surgery/bilateral cataract surgery/right partial knee replacement/cath and stent x 2 05/2022 MEDS:see active [facility] med list ALL:NONSTEROIDAL ANTI-INFLAMMATORY, BACTRIM, PRAVASTATIN, LISINOPRIL FMHX:+ strong fm hx DM. No fmhx colon or prostate cancer; mother-pancreatic cancer, dm. SOCIAL HISTORY:worked at [employer] in past//family helps care for him HABITS: ALCOHOL no TOBACCO quit @ 2013. Smoked @ 10 yrs @ 1ppd off and on ROS : [facility]-PER HX PULM-PER HX GI-NEG -NEG ENDO-+DM PHYSICAL EXAMINATION: [id number] (12/29/2023 13:33)91 (12/29/2023 13:33)322 lb [146.06 kg] (12/29/2023 13:33) Pain: 2 (0-10 scale) APPEARANCE:Alert/NAD NECK: no jvd/no gross bruits CV: S1/S2 rate controlled LUNGS: CTAB/no wheeze ABDOMEN: soft/NT/obese EXT: no gross edema NEURO: CN II-XII grossly intact SKIN: mild erythema to scalp and slightly scaly @ eyebrows PSYCH: A&Ox3/pleasant and cooperative LABS:can get us labs done locally for review ASSESSMENT/PLAN-Severe persistent asthma uncomplicated/allergic rhinitis unspecified-stable on MDI's and meds per pulm clinic/f/u pulm clinic and call if any problems. -seborrheic dermatitis(scalp) unspecified-see HPI and will try ketoconazole shampoo and will call if not better 2-4 weeks. Declined derm eval at this time -htn-see HPI and stable off all bp meds -obesity-see HPI and has lost wt since last visit with intermittent fasting and ozempic. Will call if need any VA help -routine HM Reviewed and reconciled medication list with patient/daughter. Discrepancies were corrected as needed. Problem list updated as needed and can get us labs done locally for review. Pt/daughter voiced understanding of topics covered/discussed today and has not further questions at this time. CONSULTS:none RTC:7/11/25 Avg Risk Colorectal Cancer Screen: AVERAGE RISK colorectal cancer screening is due based on information available to this clinical reminder Patient has arranged or is choosing to arrange this care independent of and without assistance from this [place]. Assess Statin Use - Lipids (CVD/DM): The patient is currently on a moderate or high dose statin. /tess/ VERÓNICA LEAHY D.O. STAFF PHYSICIAN Signed: 12/29/2023 15:11 02/27/2024 ADDENDUM STATUS: COMPLETED ZACH-DM HbA1c not done: The patient had a HbA1c done elsewhere Result 6.9 Outside HbA1c <7 Date: November 30, 2023 Location: [facility] Comment: 6.9 /es/ PRAMOD VILLEDA APRN Signed: 02/27/2024 13:09 VERÓNICA LEAHY [facility] Dec 29, 2023 01:34 PM PRIMARY CARE NURSI NG NOTE: LOCAL TITLE: [facility] Tech/clinical phlebotomist Note STANDARD TITLE: PRIMARY CARE NURSING NOTE DATE OF NOTE: DEC 29, 2023@13:34 ENTRY DATE: DEC 29, 2023@13:34:31 AUTHOR: GENE TORRESIGNER: URGENCY: STATUS: COMPLETED The patient was given a list of his current medications, instructed to review and discuss any changes or problems with their provider. Patient advised to carry a list of current medications and any allergies with them in the event of emergency situations. Yes - [place]/Caregiver verbalized understanding of topics discussed and education provided Provider notified of elevated B/P >/= 140/90. Not Applicable Alcohol Use Screen (AUDIT-C): Alcohol Screen: SCREEN FOR ALCOHOL (AUDIT-C) An alcohol screening test (AUDIT-C) was negative (score=0). 1. How often did you have a drink containing alcohol in the past year? Consider a drink to be a 12 ounce can or bottle of regular beer, 8 ounces of malt liquor, a 5 ounce glass of table wine, or a 1.5 ounce shot of liquor (like scotch, gin, or vodka). Never 2. How many drinks containing alcohol did you have on a typical day when you were drinking in the past year? Response not required due to responses to other questions. 3. How often did you have six or more drinks on one occasion in the past year? Response not required due to responses to other questions. Depression Screening: Perform PHQ-2 A PHQ-2 screen was performed. The score was 0 which is a negative screen for depression. Over the past two weeks, how often have you been bothered by the following problems? 1. Little interest or pleasure in doing things Not at all 2. Feeling down, depressed, or hopeless Not at all Homelessness/Food Insecurity Screen: In the past 2 months, have you been living in stable housing that you own, rent, or stay in as part of a household? Yes - Living in stable housing. Are you worried or concerned that in the next 2 months you may NOT have stable housing that you own, rent, or stay in as part of a household? No - Not worried about housing near future The [place] reports the following: Within the past 12 months, you worried whether your food would run out before you got money to buy more. Never true Within the past 12 months, the food you bought just didn't last and you didn't have money to get more. Never true Influenza Immunization: No influenza vaccination was received during the recent influenza season. MST Screening: Patient denies experiencing sexual trauma (MST). Suicide Screen: C-SSRS Screening [place]-Suicide Severity Rating Scale (C-SSRS Screener) 1. Over the past month, have you wished you were or wished you could go to sleep and not wake up? No 2. Over the past month, have you had any actual thoughts of killing yourself? No 3. Over the past month, have you been thinking about how you might do this? Response not required due to responses to other questions. 4. Over the past month, have you had these thoughts and had some intention of acting on them? Response not required due to responses to other questions. 5. Over the past month, have you started to work out or worked out the details of how to kill yourself? Response not required due to responses to other questions. 6. If yes, at any time in the past month did you intend to carry out this plan? Response not required due to responses to other questions. 7. In your lifetime, have you ever done anything, started to do anything, or prepared to do anything to end your life (for example, collected pills, obtained a gun, gave away valuables, went to the roof but didn't jump)? No 8. If YES, was this within the past 3 months? Response not required due to responses to other questions. PTSD Screening: PC-PTSD-5 A PTSD screening test (PC-PTSD-5) was negative (score=0). IN THE PAST MONTH, have you ever had any experience that was so frightening, horrible or traumatic. For example: A serious accident or fire a physical or sexual assault or abuse An earthquake or flood A war Seeing someone be killed or seriously injured Having a loved one through homicide or suicide 1. Have you ever experienced this kind of event? NO 2. Had nightmares about the event(s) or thought about the event(s) when you did not want to? Response not required due to responses to other questions. 3. Tried hard not to think about the event(s) or went out of your way to avoid situations that reminded you of the event(s)? Response not required due to responses to other questions. 4. Been constantly on guard, watchful, or easily startled? Response not required due to responses to other questions. 5. [place] numb or detached from people, activities, or your surroundings? Response not required due to responses to other questions. 6. [place] guilty or unable to stop blaming yourself or others for the event(s) or any problems the event(s) may have caused? Response not required due to responses to other questions. COVID-19 Immunization: Refused Pfizer Monovalent COVID-19 vaccine Immunization: COVID-19 (PFIZER), MRNA, LNP-S, PF, RISA-SUCROSE, 30 MCG/0.3 ML (AGES 12+ YEARS) Refusal Reason: PATIENT DECISION Patient refuses all immunization(s) in the COVID-19 group Date Documented: 12/29/23 13:37 Sexual Orientation: The patient thinks of their sexual orientation as: Straight or Heterosexual /tess/ GENE TORRES Signed: 12/29/2023 13:37 GENE TORRES [facility]
--- OUTSIDE RECORDS SUMMARY | 2024-09-27 22:33 | XMS_ITS | Continuity of Care Document ---
Author Organization [facility], ENDOCRINOLOGY SB Address [address] [place] [id number] Care Team Providers Care Senior C Developer Name Role Phone JERRY ROSENTHAL [facility] Office Supervisor MIQUEL STOLL Scalp Treatment Specialist MADELINE ALVARZE II Primary Care Provider Assessment No assessment recorded. Plan of Treatment Reminders Order Date Submit Date Provider Last Modified By Organization Details Last Modified Time Details Appointments RECHECK 2024 01:30P M JERRY ROSENTHAL BUSINESS OFFICE TECHNOLOGY INSTRUCTOR Not available Not available Not available DERMATOL OGY VISIT 2024 02:15P M ELIZABETH THACKER DO Not available Not available Not available LEVEL 2 2024 11:00A Iwona STOLL MD Not available Not available Not available Lab microalb umin/cre atinine, mass ratio, urine 2024 025 [facility], [address] [place] [address], [phone], 08/23/2024 12:12:55 lipid panel, serum 2024 025 [facility], [address] [place] [address], [phone], 08/23/2024 12:04:30 glucose, fingerst ick, blood 2024 025 [email or web address] 8 [facility], [address] [place] [address], [phone], 08/23/2024 10:51:17 hemoglob in A1C, fingerst ick 2024 025 [email or web address] 8 [facility], [address] [place] [address], [phone], 08/23/2024 10:51:17 CMP, serum or plasma 2024 025 [facility], [address] [place], [address], 08/23/2024 12:04:28 TSH, serum or plasma 2024 025 [facility], [address] [place] [address], [phone], 08/23/2024 12:09:29 Referral None recorded . Procedures None recorded . Surgeries None recorded . Imaging None recorded . Medication Orders Humulin R U-500 (Conc) Insulin Kwikpen 500 unit/mL (3 mL) subcutan eous 2024 025 [facility], [address] [place] [address], [id number], 08/23/2024 10:53:12 Ozempic 2 mg/dose (8 mg/3 mL) subcutan eous pen injector 2024 025 [email or web address] 8 [facility], [address] [place] [address], [id number], 08/23/2024 12:15:52 Patient TargetsNo targets recorded. Patient Instructions Encounter Date Encounter Id Patient Instructions Last Modified By Organization Details Last Modified Time 08/23/2024 [id number] [id number] Not available 13:19:32 Reason for Referral None Reported. Results Created Date Observation Date Name Description Value Unit Range Abnormal Flag Note LastModifiedBy Organization Detail LastModifiedTime 08/24/19 25 08/23/2024 hemog lobin A1C, finge rstic k hemoglobin A1C % 6.8 % 4.0 - 5.6 Not Available [facility] [address] [place], [address], 08/10/2024 13:19:34 08/24/1908/23/2024 gluco se, finge rstic k, blood glucose, fingerstick 199 mg/dL 70 - 100 Not Available [facility] [address] [place], [address], 08/10/2024 13:19:34 Result Notes None recorded. Problems Name Problem SNOMED Code Status Onset Date Resolution Date Notes Provider Name and Address Organization Details Recorded Time Idiopath ic osteoart hritis 395540774 Active 2015 From [employer];Pro vider: Celia Monge;St ayon: Active Not Available [facility] 7 03:40:39 Achilles tendinit is 83316229 Completed 201501/03/2017 From [employer];Pro vider: Magdalena Fuentes;Sta tus: Active MIQUEL HERRMANN MD [address] [place] [address], [phone] , [facility] 7 13:46:53 Senile hyperker atosis 162574842 Active 2015 From [employer];Pro vider: Marilin Gonsales; atus: Active Not Available [facility] 7 06:00:03 Neoplast ic disease 16049163 Completed 201501/03/2017 From [employer];Pro vider: Marilin Gonsales;St atus: Active MIQUEL HERRMANN MD [address] [place] [address], [phone] , [facility] 7 13:46:51 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 116361257 Active 2015 From [employer];Pro vider: Stephanie Fuentes tus: Active Not Available [facility] 7 06:21:34 Pain in left foot [id number] 9107 Completed 201501/03/2017 From [employer] Load;Pro vider: Magdalena Fuentes;Sta tus: Active MIQUEL HERRMANN MD [address] [place] [address], [address] , [facility] 7 13:46:55 Pain in right foot [id number] 9107 Active 2015 From Autom[employer] Load;Pro vider: Magdalena Fuentes;Sta tus: Active Not Available [facility] 7 06:45:00 Tracheob ronchiti s [id number] Completed 201501/03/2017 From [employer] Load;Pro vider: Celia Monge;St atus: Active MIQUEL HERRMANN MD [address] [place] [address], [phone] , [facility] 7 13:46:47 Congenit al talipes calcaneo valgus 700129971 Active 2015 From [employer] Load;Pro vider: Magdalena Fuentes;Sta tus: Active Not Available [facility] 7 07:05:37 Disorder of capillar ies 08962682 Active 2015 From Autom[employer] d Load;Pro vider: Marilin Gonsales;St atus: Active Not Available [facility] 7 07:51:38 Hyperten sive disorder 36218649 Active 2017 MIQUEL HERRMANN MD [address] [place] [address], [address] , [facility] 2 07:59:22 Hyperlip idemia 82989980 Active 2017 MIQUEL HERRMANN MD [address] [place] [address], [address] , [facility] 2 07:59:22 Chronic depressi on 666859781 Active 2017 MIQUEL HERRMANN MD [address] [place] [address], [address] , [facility] 2 07:59:22 Chronic obstruct an pulmonar y disease 69218049 Active 2017 MIQUEL HERRMANN MD [address] [place] [address], [address] , [facility] 2 07:59:22 Diabetic peripher al neuropat hy 941624140 Active 2017 MIQUEL HERRMANN MD [address] [place] [address], [address] , [facility] 2 07:59:22 Venous insuffic iency of leg 994241055 Active 2020 MIQUEL HERRMANN MD [address] [place] [address], [address] , [facility] 1 16:20:44 Multiple complica tions due to type 2 diabetes mellitus Active 2021 JERRY ROSENTHAL APRN [address] [place] [address], [address] , [facility] 2 12:26:29 Lower urinary tract symptoms due to benign prostati c hypertro phy 40453224735 101 Active 2021 MIQUEL HERRMANN MD [address] [place] [address], [address] , [facility] 2 08:02:53 Chronic low back pain 778842227 Active 2021 MIQUEL HERRMANN MD [address] [place] [address], [address] , [facility] 2 08:02:53 Body mass index 40+ - severely obese 482173372 Active 2021 MIQUEL HERRMANN MD [address] [place] [address], [address] , [facility] 2 08:02:[address] segment elevatio n myocardi al infarcti on 14351666854 9104 Active 2021 MIQUEL HERRMANN MD [address] [place] [address], [address] , [facility] 2 07:52:05 Morbid obesity 633257348 Active 2022 MIQUEL HERRMANN MD [address] [place] [address], [address] , [facility] 3 15:15:21 Recurren t major depressi on 61146539 Active 2022 MIQUEL HERRMANN MD [address] [place], [address] , [facility] 15:23:59 Problem Notes None recorded. Procedures Surgical History Date Name Laterality Status Provider Name and Address Organization Details Recorded Time 025 Diabetic Foot Exam completed JERRY ROSENTHAL, BUSINESS OFFICE TECHNOLOGY INSTRUCTOR [address] [place], [address], [facility] 08/23/2024 12:17:37 024 Laryngoscopy Flex completed Fred Fletcher [facility] 06/18/2024 15:35:17 024 Destruction BN Lesions completed ELIZABETH THACKER DO [address] [place], [address], [facility] 03/08/2024 17:02:10 022 TCM completed [facility] 06/03/2022 07:19:18 022 OCT/Retina completed MIQUEL STOLL MD [address] [place], [address], [facility] 06/07/2022 16:04:02 022 catheterization of left heart completed Shimon [facility] 06/03/2022 07:29:27 022 Destruction BN Lesions completed Damaris Johnson [facility] 08/05/2021 14:43:50 022 Cystoscopy - male completed KARUNA ALDRIDGE MD [address] [place], [address], [facility] 07/13/2021 13:19:21 021 Post Void Residual; Ultrasound completed Katina Camejo [facility] 05/19/2021 15:49:13 021 OCT/Retina completed MIQUEL STOLL MD [address] [place], [address], [facility] 03/06/2021 12:14:35 021 repair of shoulder completed Monica Osorio [facility] 02/09/2021 14:40:09 021 Bubbles Echocardiogram completed ISAAK CASTRO MD [address] [place], [address], [facility] 07/21/2020 15:43:23 021 Diffusion Capacity completed SILVESTRE MCLAIN PA-C [address] [place], [address], [facility] 07/10/2020 15:30:41 021 Lung Volumes, Plethysmography completed SILVESTRE MCLAIN PA-C [address] [place], [address], [facility] 07/10/2020 15:31:01 021 Spirometry completed SILVESTRE MCLAIN PA-C [address] [place], [address], [facility] 07/10/2020 15:31:15 020 Biopsy Skin Lesion; Punch completed [facility] 08/20/2019 12:12:34 020 Destruction BN Lesions completed Rubi [facility] 08/20/2019 12:12:09 019 Digital Rectal Screening Exam completed MIQUEL HERRMANN MD [address] [place], [address], [facility] 07/13/2018 16:22:10 018 Digital Rectal Screening Exam completed MIQUEL HERRMANN MD [address] [place] [address] [place], [address], [facility] 07/11/2017 16:34:07 017 MNT Initial Visit completed A[address] [place], [address], [facility] 01/20/2017 14:21:14 017 Audiogram completed JACLYN WHARTON [address] [place], [address], [facility] 06/30/2016 14:57:39 011 Cervical Spine Surgery completed Brea Leos [facility] 06/08/2016 14:35:47 Cataract Surgery completed Melissa holly giuseppe [facility] 06/08/2016 14:35:11 Knee Surgery completed Brea Leos [facility] 06/08/2016 14:37:21 Imaging Results None recorded. Procedure Notes None recorded. Medical Equipment None Reported. Allergies Allergen ID Allergen Name Allergen Category Reaction Reaction Severity Criticality Documentation Date Start Date Code Code System Note Provider Name and Address Organization Details Recorded Time 607858 Non-stero idal anti-infl ammatory agent (product) medicatio n Not available Not available Not available 09/16/2016 04749 005 SNOMED Verito Jack [facility] 7 10:06:11 785754 Substance with sulfonami de structure and antibacte rial mechanism of action (substanc e) medicatio n Not available Not available Not available 09/16/2016 52851 8003 SNOMED Verito Marcialer [facility] 7 10:06:23 036695 aspirin medicatio n Not available Not available Not available 09/16/2016 1191 RxNorm Jocelyn Kay [facility] 2 14:56:06 991911 pravastat in medicatio n rash Not available Not available 08/18/2022 96788 RxNorm JERRY ROSENTHAL, BUSINESS OFFICE TECHNOLOGY INSTRUCTOR [address] [place], [address], [facility] 3 16:14:52 844628 lisinopri l medicatio n cough Not available Not available 12/08/2023 63030 RxNorm JERRY ROSENTHAL, BUSINESS OFFICE TECHNOLOGY INSTRUCTOR [address] [place], [address], [facility] 4 10:43:26 Medications Name Sig Start Date Stop Date Status Note LastModified by Organization Details LastModified Time eq mucus er 600mg tab TAKE 1 TO 2 TABLETS BY MOUTH TWICE DAILY NEEDED FOR CONGESTI ON active Not Available Not Available No t Available Prescript ion - Prior Authoriza tion Request 02/09 completed Not Available Not Available Not Available losartan 50 mg tablet TAKE 2 TABLETS BY MOUTH EVERY DAY 07/16 completed Not Available Not Available Not Available fluoxetin e 40 mg capsule Take 1 capsule every day by oral route. 07/13 completed Not Available Not Available Not Available cyclobenz aprine 10 mg tablet one po at hs prn active Not Available Not Available No t Available amoxicill in 500 mg capsule 11/30 completed Not Available Not Available Not Available atorvasta tin 40 mg tablet TAKE ONE TABLET BY MOUTH ONCE A DAY/NEED S APPOINTM ENT active Not Available Not Available No t Available promethaz ine-DM 6.25 mg-15 mg/5 mL oral syrup Take 5 mL as needed by oral route at bedtime. 07/12 completed Not Available Not Available Not Available prednison e 10 mg tablet TAKE 4 TABLETS BY MOUTH ONCE DAILY FOR 2 DAYS THEN 2 ONCE DAILY FOR 2 DAYS THEN 1 ONCE DAILY FOR 2 DAYS THEN STOP 06/18 completed Not Available Not Available Not Available gabapenti n 600 mg tablet TAKE 2 TABLETS BY MOUTH THREE TIMES DAILY active Not Available Not Available No t Available doxycycli ne hyclate 100 mg capsule TAKE 1 CAPSULE BY MOUTH EVERY 12 HOURS AT 9AM AND 9PM FOR 10 DAYS 06/18 completed Not Available Not Available Not Available ipratropi um 0.5 mg-albute rol 3 mg (2.5 mg base)/3 mL nebulizat ion soln Inhale 3 mL every 4-6 hours by nebuliza tion route for 30 days. 2019 active Qty 540 ml Not Available Not Available Not Available Effexor XR 75 mg capsule,e xtended release Take 1 capsule every day by oral route. 05/05 completed Not Available Not Available Not Available trazodone 50 mg tablet Take 1 tablet every day by oral route at bedtime. 06/07 completed Not Available Not Available Not Available azithromy dhiraj 250 mg tablet 08/02 completed Not Available Not Available Not Available nystatin 100,000 unit/gram topical ointment active Not Available Not Available Not Available valacyclo vir 1 gram tablet active Not Available Not Available Not Available hydrocodo ne 5 mg-acetam inophen 325 mg tablet Take 1 tablet every 8 hours by oral route as needed. active Not Available Not Available No t Available Levaquin 750 mg tablet Take 1 tablet every day by oral route. 07/12 completed Not Available Not Available Not Available prednison e 20 mg tablet Take 2 tablets every day by oral route. 06/18 completed Not Available Not Available Not Available Diflucan 150 mg tablet Take 1 tab today and 1 tab in 3 days 01/19 completed Not Available Not Available Not Available Tylenol Arthritis Pain 650 mg tablet,ex tended release Take 2 tablets every 8 hours by oral route as needed. active 05/28/19 Pt reports takes 3 tabs bid plus 4 tabs at hs. Not Available Not Available Not Available clopidogr el 75 mg tablet active Not Available Not Available Not Available amlodipin e 5 mg tablet TAKE ONE TABLET BY MOUTH EVERY DAY - 04/21 completed Not Available Not Available Not Available aspirin 81 mg tablet,de layed release 11/08 completed Not Available Not Available Not Available tramadol 50 mg tablet TAKE 1 TO 2 TABLETS EVERY 4 TO 6 HOURS NEEDED FOR PAIN active Not Available Not Available No t Available triamcino lone acetonide 0.1 % topical cream APPLY THIN LAYER TOPICALL Y TO AFFECTED AREA(S) TWICE A DAY 2020 active Not Available Not Available Not Avai lable amoxicill in 500 mg tablet 4 tablets p.o. 30 to 60 minutes prior to dental procedur e 06/03 completed Not Available Not Available Not Available bisoprolo l fumarate 5 mg tablet Take 1 tablet every day by oral route. active Not Available Not Available No t Available nystatin- triamcino lone 100,000 unit/gram -0.1 % topical ointment APPLY TO THE AFFECTED AREA(S) BY TOPICAL ROUTE 2 TIMES PER DAY 11/08 completed Not Available Not Available Not Available Zofran 4 mg tablet Take 2 tablets twice a day by oral route as needed. 07/23 completed Not Available Not Available Not Available amoxicill in 875 mg tablet TAKE 1 TABLET BY MOUTH EVERY 12 HOURS 08/02 completed Not Available Not Available Not Available tamsulosi n 0.4 mg capsule Take 1 capsule every day by oral route. active Not Available Not Available No t Available gabapenti n 800 mg tablet TAKE ONE TABLET BY MOUTH THREE TIMES DAILY 06/28 completed Not Available Not Available Not Available amlodipin e 10 mg tablet Take 1 tablet every day by oral route for 30 days. 06/07 completed Not Available Not Available Not Available benzonata te 100 mg capsule TAKE 1 CAPSULE BY MOUTH THREE TIMES DAILY NEEDED FOR COUGH active Not Available Not Available No t Available hydrocodo ne 7.5 mg-acetam inophen 325 mg tablet TAKE 1-2 TABLET BY ORAL ROUTE EVERY 6 HOURS NEEDED FOR PAIN 04/21 completed Not Available Not Available Not Available pantopraz ole 40 mg tablet,de layed release Take 1 tablet every day by oral route. active Not Available Not Available No t Available fluoxetin e 20 mg tablet Take 2 tablets every day by oral route. 12/28 completed Not Available Not Available Not Available tobramyci n 0.3 % eye drops INSTILL 1 DROP INTO RIGHT EYE 4 TIMES DAILY FOR 4 DAYS THEN DISCONTI NUE active Not Available Not Available No t Available nystatin 100,000 unit/gram topical cream APPLY TOPICALL Y TO AFFECTED AREA 2 TIMES A DAY active Not Available Not Available No t Available lidocaine 5 % topical patch APPLY 1 PATCH BY TRANSDER MAL ROUTE ONCE DAILY (MAY WEAR UP TO 12HOURS. ) 06/18 completed Not Available Not Available Not Available nebulizer s Neb treatmen t TID prn 06/03 completed Not Available Not Available Not Available nystatin- triamcino lone 100,000 unit/g-0. 1 % topical cream active Not Available Not Available Not Available pravastat in 20 mg tablet TAKE ONE TABLET BY MOUTH ONCE A DAY active Not Available Not Available No t Available Novolog U-100 Insulin aspart 100 unit/mL subcutane ous solution INJECT UP TO 25 UNITS SUBCUTAN EOUSLY 15 MINUTES BEFORE MEALS 3x/DAY 04/03 completed 05/28/19 Pt reports takes 30U tid before meals. Not Available Not Available Not Available lorazepam 1 mg tablet 1 po one hour prior to procedur e and may repeat x 1 dose prn in 1 hour 06/03 completed Not Available Not Available Not Available Nasonex 50 mcg/actua tion Stanton Stanton 2 sprays every day by intranas al route. 05/28 completed Not Available Not Available Not Available methylpre dnisolone 4 mg tablets in a dose pack TAKE BY MOUTH DIRECTED ON INSIDE OF PACKAGE FOR 6 DAYS 06/18 completed Not Available Not Available Not Available albuterol sulfate HFA 90 mcg/actua tion aerosol inhaler INHALE 2 PUFFS BY MOUTH EVERY 6 HOURS NEEDED active Not Available Not Available No t Available cefdinir 300 mg capsule 11/30 completed Not Available Not Available Not Available losartan 100 mg tablet TAKE ONE TABLET BY MOUTH EVERY DAY 11/08 completed Not Available Not Available Not Available fluoxetin e 20 mg capsule TAKE 3 CAPSULES BY MOUTH ONCE A DAY call [phone] to schedule appt active Not Available Not Available No t Available fluticaso ne propionat e 50 mcg/actua tion nasal spray,daniel pension USE 1 TO 2 SPRAY(S) IN EACH NOSTRIL ONCE DAILY active Not Available Not Available No t Available amoxicill in 875 mg-potass ium clavulana te 125 mg tablet TAKE 1 TABLET BY MOUTH TWICE DAILY FOR 10 DAYS active Not Available Not Available No t Available tobramyci n 0.3 %-dexamet hasone 0.1 % eye drops,daniel pension INSTILL 1 DROP INTO BOTH EYES 3 TIMES DAILY FOR UP TO 2 WEEKS, THEN STOP active Not Available Not Available No t Available oxycodone 5 mg tablet 11/08 completed Not Available Not Available Not Available nystatin (bulk) 1 billion unit powder Apply powder topicall y to the skin as directed . 11/11 completed Qty 15 Not Available Not Available Not Available ezetimibe 10 mg tablet TAKE ONE TABLET BY MOUTH ONCE A DAY active Not Available Not Available No t Available Vitamin D3 25 mcg (1,000 unit) capsule Take by oral route as directed . 05/04 completed Not Available Not Available Not Available ciproflox acin 0.3 %-dexamet hasone 0.1 % ear drops,daniel pension 11/08 completed Not Available Not Available Not Available duloxetin e 20 mg capsule,d elayed release Take 1 capsule every day by oral route. 11/18 completed Not Available Not Available Not Available duloxetin e 30 mg capsule,d elayed release Take 1 capsule every day by oral route. 10/28 completed Not Available Not Available Not Available duloxetin e 60 mg capsule,d elayed release TAKE ONE CAPSULE BY MOUTH EVERY DAY GENERIC FOR CYMBALTA active Not Available Not Available No t Available Zanaflex 2 mg capsule Take 1 capsule twice a day by oral route. 09/[address] Anthony Parmar Not Available Not Available Not Available Vitamin C as directed 05/28 completed Not Available Not Available Not Available zinc sulfate As directed 09/02 completed Not Available Not Available Not Available vitamin B complex as directed 05/28 completed Not Available Not Available Not Available Benadryl prn at HS active Not Available Not Available No t Available prednison e x 5 days - per hospital 01/03 completed Not Available Not Available Not Available doxycycli ne hyclate 04/28 completed Not Available Not Available Not Available Antidiarr heal OTC prn active Not Available Not Available Not Available Vitamin B6 as directed 05/04 completed Not Available Not Available Not Available Eye Allergy Relief eye drops daily prn active Not Available Not Available No t Available Asmanex Twisthale r active Not Available Not Available Not Available valsartan 320 mg-hydroc hlorothia zide 12.5 mg tablet active Not Available Not Available No t Available ProAir HFA active Not Available Not Available Not Available hydrochlo rothiazid e 12.5 mg tablet TAKE ONE TABLET BY MOUTH ONCE A DAY 10/09 completed Not Available Not Available Not Available Symbicort 160 mcg-4.5 mcg/actua tion HFA aerosol inhaler Inhale 2 puffs twice a day by inhalati on route. 06/16 completed Not Available Not Available Not Available Golytely 236 gram-22.7 4 gram-6.74 gram-5.86 gram oral solution TAKE DIRECTED 06/03 completed Not Available Not Available Not Available diclofena c 1 % topical gel Apply 2 g 3 times a day by topical route as needed. active Not Available Not Available No t Available mometason e 110 mcg/actua tion(30 doses) breath activated powder inhaler Inhale 2 puffs every day by inhalati on route. active Not Available Not Available No t Available sodium,po tassium,m ag sulfates 17.5 gram-3.13 gram-1.6 gram oral soln TAKE FIRST DOSE AT 5PM. TAKE SECOND DOSE AT 10PM. NOTHING TO EAT OR DRINK AFTER MIDNIGHT active Not Available Not Available No t Available Xarelto 10 mg tablet 03/08 completed Not Available Not Available Not Available Brilinta 90 mg tablet Take 1 tablet twice a day by oral route. active Not Available Not Available No t Available ipratropi um 0.5 mg-albute rol 2.5 mg/2.5 mL solution for nebulizat ion Inhale by inhalati on route. 01/03 completed Every 2 hours as needed Not Available Not Available Not Available Advocate Pen Needle 31 gauge x 5/16 USE DIRECTED UP TO 6 A DAY WITH INSULIN active Not Available Not Available No t Available Victoza 3-Liam 0.6 mg/0.1 mL (18 mg/3 mL) subcutane ous pen injector INJECT 1.8 MG DAILY 01/27 completed 07/09/19 Pt taking 1.2 mg daily and will increase to 1.8 mg. 07/06/18- 01/10/18 Not Available Not Available Not Available Farxiga 10 mg tablet 07/16 completed Not Available Not Available Not Available Levemir FlexTouch U-100 Insulin 100 unit/mL (3 mL) subcutane ous pen INJECT UP TO 60 UNITS SUBCUTAN EOUSLY 2 TIMES A DAY 07/16 completed 05/28/19 Pt takes 30U q hs Not Available Not Available Not Available olodatero l 2.5 mcg/actua tion mist for inhalatio n Inhale 2 puffs every day by inhalati on route. 06/18 completed Not Available Not Available Not Available Stiolto Respimat 2.5 mcg-2.5 mcg/actua tion solution for inhalatio n Inhale 2 puffs every day by inhalati on route. active Not Available Not Available No t Available Humulin R U-500 (Conc) Insulin Kwikpen 500 unit/mL (3 mL) subcutane ous Inject up to 70u two times per day before meals active Not Available Not Available No t Available Ozempic 1 mg/dose (4 mg/3 mL) subcutane ous pen injector INJECT 1 MG SUBCUTAN EOUSLY ONCE WEEKLY 11/30 completed Not Available Not Available Not Available aspirin 81 mg capsule Take 1 capsule every day by oral route. active Not Available Not Available No t Available Paxlovid 300 mg (150 mg x 2)-100 mg tablets in a dose pack TAKE 2 NIRMATRE LVIR TABLETS WITH 1 RITONAVI R TABLET TWICE A DAY FOR 5 DAYS 11/30 completed Not Available Not Available Not Available Ozempic 2 mg/dose (8 mg/3 mL) subcutane ous pen injector Inject 2 mg every week by subcutan eous route for 28 days. active Not Available Not Available No t Available Ozempic 0.25 mg or 0.5 mg (2 mg/3 mL) subcutane ous pen injector INJECT 0.5 MG SUBCUTAN EOUSLY EVERY WEEK 11/30 completed Not Available Not Available Not Available Vitals Date Recorded Body height Body mass index (BMI) Body weight Systolic blood pressure Diastolic blood pressure Provider Name and Address Organization Details Last Updated DateTime 08/23/2024 175.26 cm 49.9 kg/m2 517307.2 2 g 114 mm[Hg] 80 mm[Hg] [facility] 10:32:47 Social History Question Answer Notes LastModified by Organizat ion Details LastModified Time Tobacco Smoking Status Former Smoker QUIT 2005 Brea Leos [facility] 06/08/2016 14:34:38 Do You Have An Advance Directive? No [email or web address] Information not available 06/07/2019 What Is Your Level Of Alcohol Consumption? None [email or web address] Information not available 06/08/2016 What Is Your Level Of Caffeine Consumption? Moderate Information not available 07/08/2017 How Much Tobacco Do You Chew? None Information not available 07/13/2018 What Type Of Diet Are You Following? REGULAR [email or web address] Information not available 06/07/2019 Which Illicit Or Recreational Drugs Have You Used? No Information not available 06/07/2019 Do You Or Have You Ever Used E-cigarettes Or Vape? Never Used Electronic Cigarettes Information not available 01/19/2019 Education 2 Year College Informatio n not available 07/08/2017 What Is Your Occupation? [employer] [facility] [place] [employer] Information not available 07/11/2017 When Did You Quit Smoking? 15+yearssinngoc chandra [email or web address] Information not available 10/28/2022 Live Alone Or With Others? With Others Information not available 07/08/2017 Marital Status [email or web address] Informatio n not available 06/08/2016 What Was The Date Of Your Most Recent Tobacco Screening? 11/08/2022 [email or web address] Information not available 11/08/2022 What Is Your Relationship Status? [email or web address] Information not available 05/19/2021 Seat Belts Used Routinely Yes Information not available 07/08/2017 Are You Passively Exposed To Smoke? No Information not available 07/08/2017 Do You Or Have You Ever Used Smokeless Tobacco? Never Used Smokeless Tobacco Information not available 01/19/2019 How Much Tobacco Do You Smoke? 1.5 PPD Information not available 07/11/2017 Do You Use Sunscreen Routinely? No Information not available 07/08/2017 How Many Years Have You Smoked Tobacco? 15 Information not available 07/11/2017 Sex: Unknown Functional Status Question Answer Note LastModified by Organization D etails LastModified Time Are you able to care for yourself? Yes Information n ot available 07/08/2017 What is your exercise level? None Information not available 12/06/2016 Mental Status None recorded. Family History Relationship Description Onset Age of this Age Resolved Age Notes LastModified by Organization Details LastModified Time Mother Diabetes mellitus [email or web address] Not available 2015 14:33:12 Mother Migraine Not available 0 07/11/2017 15:18:48 Mother Hypertensive disorder Not available 2017 15:18:20 Mother Carcinoma of pancreas Not available 2017 15:19:10 Brother Diabetes mellitus [email or web address] Not available 2015 14:33:12 Brother Hyperlipidem ia Not available 2017 15:19:24 Brother Asthma Not available 12/06/2016 15:14:55 Brother Cerebrovascu lar accident Not available 15:18:41 Sister Diabetes mellitus [email or web address] Not available 2015 14:33:12 Father Hypertensive disorder Not available 2017 15:18:15 Father Chronic obstructive pulmonary disease [email or web address] Not available 2016 15:15:24 Unspecified Relation Glaucoma aunt [email or web address] Not available 2016 15:14:09 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 Condition Response Diabetes Y Heart Problems Y Coronary Artery Disease Y Other Y Bleeding Disorder Y Arthritis Y Chronic Obstructive Pulmonary Disease Y Ear or Hearing Problems Y Migraines Y Asthma Y COPD Y Depression Y Pneumonia Y Urinary Problems Y Sleep Apnea Y Sleep Disorder Y High Cholesterol Y Snoring problems Y Heart Disease Y Bronchitis Y Heart Attack ([place]) Y Headaches Y Hypertension Y Osteoporosis Y Glasses/Contacts Y Immunizations Vaccine Type Date Status Note Provider Nam e and Address Organization Details Recorded Time Influenza, high-dose, trivalent, PF 9 completed Not Available [facility] 07/07/2019 02:48:55 Pneumococcal conjugate PCV 13 0 completed Not Available [facility] 07/07/2019 02:48:26 Influenza, high-dose, quadrivalent, PF 0 completed Monica Osorio [facility] 06/16/2020 15:59:45 Influenza, high-dose, quadrivalent, PF 2 [facility] 12:03:00 pneumococcal polysaccharide PPV23 2 completed MIQUEL HERRMANN MD [address] [place] [address], [phone], [facility] 08/18/2021 11:04:59 Influenza, split virus, quadrivalent, preservative 7 completed MIQUEL HERRMANN MD [address] [place] [address], [phone], [facility] 11/08/2022 15:20:57 pneumococcal polysaccharide PPV23 3 [facility] 08:08:52 Tdap 9 completed MIQUEL HERRMANN MD [address] [place] [address], [address] [place] [address], [facility] 11/08/2022 15:20:58 influenza nasal, unspecified formulation 2 completed MIQUEL HERRMANN MD [address] [place] [address], [address] [place] [address], [facility] 11/08/2022 15:20:58 zoster recombinant 9 completed MIQUEL HERRMANN MD [address] [place] [address], [address] [place] [address], [facility] 11/08/2022 15:20:57 zoster recombinant 9 completed MIQUEL HERRMANN MD [address] [place] [address], [address] [place] [address], [facility] 11/08/2022 15:20:57 Influenza, high-dose, quadrivalent, PF 0 completed MIQUEL HERRMANN MD [address] [place] [address], [address] [place] [address], [facility] 11/08/2022 15:20:57 Influenza, high-dose, quadrivalent, PF 1 completed MIQUEL HERRMANN MD [address] [place] [address], [address] [place] [address], [facility] 11/08/2022 15:20:57 COVID-19, mRNA, LNP-S, PF, 100 mcg/0.5mL dose or 50 mcg/0.25mL dose 1 completed MIQUEL HERRMANN MD [address] [place] [address], [phone], [facility] 11/08/2022 15:20:57 COVID-19, mRNA, LNP-S, PF, 100 mcg/0.5mL dose or 50 mcg/0.25mL dose 2 completed MIQUEL HERRMANN MD [address] [place] [address], [phone], [facility] 11/08/2022 15:20:57 COVID-19, mRNA, LNP-S, PF, 100 mcg/0.5mL dose or 50 mcg/0.25mL dose 1 completed MIQUEL HERRMANN MD [address] [place] [address], [phone], [facility] 11/08/2022 15:20:58 COVID-19, mRNA, LNP-S, bivalent, PF, 50 mcg/0.5 mL or 25mcg/0.25 mL dose 2 completed MIQUEL HERRMANN MD [address] [place] [address], [phone], [facility] 11/08/2022 15:20:58 Hep A, adult 0 completed MIQUEL HERRMANN MD [address] [place] [address], [phone], [facility] 11/08/2022 15:20:58 Hep A, adult 9 completed MIQUEL HERRMANN MD [address] [place] [address], [phone], [facility] 11/08/2022 15:20:58 Influenza, split virus, quadrivalent, PF 6 completed MIQUEL HERRMANN MD [address] [place] [address], [phone], [facility] 11/08/2022 15:20:58 Past Encounters Encounter ID Performer Location Encounter Start Date Encounter Closed Date Diagnosis/Indication Diagnosis SNOMED-CT Code Diagnosis ICD10 Code Diagnosis Note [id number] JERRY ROSENTHAL APRN [facility] [address] [place] [address] 08/23/2024 10:26:20 08/23/2024 10:54:26 Multiple complications due to type 2 diabetes mellitus 100382773 E11.8 ? ? A1c in office today of 6.8%, from 6.9%, ? ? Goal A1C by ADA criteria is less than 7%. Random blood glucose 199. Recommenda tions: -Congratul ated pt on maintainin g goal A1c! Agreed on the following for now: -Continue humulin R U-500. Inject 40u in the AM and 30u before dinner. Take this insulin 20-30min before the meal.-Cont inue ozempic. Inject 2mg once weekly. - Patient is instructed to restrict {{his* her }} carbohydra jacquelyn (less than 45 g per meal and less than 15-20 g per snack). Reinforced importance of carbohydra te restrictio n and dietary discretion . - Monitor blood glucose at least {{1 2 3 4* 5}} times per day {{before breakfast before breakfast and before dinner or at bedtime be fore meals and before bedtime*}} and any time {{he* she} } feels low. Blood glucose goals reviewed (i.e. fasting 80-130, post-prand ial <180, and hypoglycem ia <70). Patient advised to call our office if recurrent hypoglycem ia. - Dietitian referral: {{Yes No D eclined Pr eviously referred*} }; MNT 2016; - Encouraged to be active (30 minutes of moderate intensity exercise i.e. walking 5 times weekly). Weight loss will help with insulin sensitizat ion. - Hypoglycem ia symptoms explained and treatment for this reviewed.* * Risk reviewed with pt. - Patient is {{up to date on* needs} } foot exam. - Patient is {{up to date on* needs} } eye exam. (Dr. Flowers) - Patient {{up to date on needs*} } urine testing for microalbum in. (ARB); Orders placed. - Patient verbalized understand ing of treatment plan. All questions answered. -Last labs on 02/20/23- repeat labs as ordered today BUN 20 Creatinine 1.00 GFR 74 AST 35 ALT 34TSH 1.320MACR positive (303) Hyperlipidemia 17709086 E78.5 Goal LDL is under 100 mg/dl. Last LDL: 38 on 11/08/22Tri glycerides : 105Continu e atorvastat in per PCP/ cardiology .Continue dietary changes as recommende d. Essential hypertension [id number] I10 Goal B.P is less than 140/90 mmHg.Jose Angel nue current anti-hyper tensive medication s as appropriat e per patient? s PCP. Renal diso rder due to type 2 diabetes mellitus 484747558 E11.22 MACR positive (303) on 04/21/22 Continue losartan therapy as ordered. Health Concerns Section Related Observation LastModified by Organization Detai ls LastModified Time None Recorded Concern Status LastModified by Organization Details LastModified Time None Recorded Payers Encounter Date Sequence Insurance Name Policy Number Policy Lockett Covered Member ID Lockett Member ID Guarantor Name 08/23/2024 2 [place] BRENDA HAG[place] OF [place] - [employer] [id number] Miquel Allen [id number] Miquel Allen 08/23/2024 1 [place] Miquel Allen [id number] Miquel Allen Notes Date Note Type Note Provider Name and Address Organization Details Recorded Time 08/23/2024 text/html Mr. Allen is a 69year old male patient with a past medical history significant for hypertension, hyperlipidemia, and uncontrolled type 2 diabetes complicated by peripheral diabetic neuropathy, who is seen at the office today for a follow up. At last visit 11/30/23, we increased ozempic. Patient reports improved compliance and denies any side effects. Using dexcom appropriately. Pt has not followed up as recommended. Dexcom sensors are on back order. Currently using [employer] | [employer] brand meter. Hx: Needs another left shoulder surgery 10/27, repair again (rotator cuff still torn, did not heal after last surgery on 11/24/20). UTT pravastatin d/t rash;Med hx: farxiga; metformin; victoza (nausea/vomiting) Current Treatment Regimen:Humulin R U-500 40u acb 30u acd Ozempic 2mg* No recent episodes of hypoglycemia. Patient is able to recognize and treat appropriately. Diet: 1-2 meals per day- in the evening, some sweets after dinner Exercise: no regular exercise- retired-- knee pain- plans to start PT for balance, [facility] Review finger sticks: unable to download [id number] avg. 221 Duration: {{chronic* new onset}} Compliance: compliant with medications; compliant with follow-up visits; compliant with diet; compliant with home glucose monitoring; no side effects from medications Self Care: monitoring glucose daily; seeing eye doctor regularly; checking feet regularly;Last dilated eye exam: 03/08/24 Dr. Stoll- MNPDR Associated Symptoms: no weight gain; no dizziness; no sweats; no headaches; no confusion; no increased appetite; no increased urination; no calluses on feet; no SOB; no heart palpitations/racin g heart Reports:dry mouth (stable- worse at night); intermittent blurred vision (stable); numbness/burning/t ingling of feet worsened (stable- on neurontin per PCP); increased thirst (stable); 10lb weight gain since last visit; Chronic Complications:Diab etic retinopathy: {{Yes No*}}Diabeti c neuropathy: {{Yes* No}}Diabeti c nephropathy: {{Yes No*}}Hyperte nsion: {{Yes* No}}Hyperli pidemia: {{Yes* No}} JERRY ROSENTHAL, BUSINESS OFFICE TECHNOLOGY INSTRUCTOR [address] [place], [address], [facility] 08/23/2024 12:18:59"
--- OUTSIDE RECORDS SUMMARY | 2024-09-27 22:33 | XMS_ITS | Encounter Summary ---
Author Name [facility] [place] [facility] [place] Address [address] [place] [address] Care Team Providers Care Roll Off Driver Name Role Phone VERÓNICA LEAHY Primary Care [...] PART A Feb 18, 2019 PART A [id number] GAEL ZAVALA PATIENT MEDICARE (WNR) MEDICARE (M) PART B Feb 18, 2019 PART B [id number] [phone] GAEL ZAVALA PATIENT MEDICARE (WNR) MEDICARE (M) PART B Feb 18, 2019 PART B [id number] GAEL ZAVALA PATIENT MEDICARE (WNR) MEDICARE (M) PART B Feb 18, 2019 PART B [id number] GAEL ZAVALA PATIENT MEDICARE (WNR) MEDICARE (M) PART A Jul 21, 1993 PART A [id number] GAEL ZAVALA PATIENT MEDICARE (WNR) MEDICARE (M) PART A Jul 21, 1993 PART A [id number] GAEL ZAVALA PATIENT MEDICARE (WNR) MEDICARE (M) PART A Jul 21, 1993 PART A [id number] GAEL ZAVALA PATIENT Selected Encounter This section includes the information on record at [place] for the Encounter. Date/Time Encounter Type Encounter Description Reason Pro vider Source Jul 17, 2024 08:59 AM Outpatient Encounter SLEEP MEDICINE [facility] Encounter Template Text not used by [place] Plan of Treatment: Future Appointments (+ 6 months) and Future Tests (+/- 45 days) The Plan of Treatment section includes future care activities for the patient from all [place] treatmentfacilities. This section includes future appointments and future orders which are active, pending or scheduled. Future Appointments This section includes appointments that were scheduled to occur 6 months from the date of the Encounter, up to a maximum of 20 appointments. The data comes from all [place] treatment facilities. Appointment Date/Time Appointment Type Appointme nt Facility Name Aug 09, 2024 09:30 AM AMBULATORY - MEDICINE [facility] Sep 06, 2024 02:00 PM AMBULATORY - MEDICINE [facility] Sep 07, 2024 08:30 AM AMBULATORY - MEDICINE [facility] October 29, 2024 02:00 PM AMBULATORY - NEUROLOGY [facility] Active, Pending, and Scheduled Orders This section includes a listing of several types of active, pending, and scheduled orders, including clinic medications orders, diagnostic test orders, procedure orders and consult orders; where the start date of the order is 45 days before the date of the Encounter or 45 days after the date of theEncounter. The data comes from all [place] treatment [facility]. Test Date/Time Test Type Test Details Facility Name Aug 31, 2024 10:11 AM Consult Order MED CPAP O UTPATIENT Cons [place] [facility] Social History: Smoking Status (Most current) and Tobacco Use (All prior to encounter date) This section includes the most current, and the historical, smoking and tobacco- related health factors from the [place] facility where the Encounter took place. Current Smoking Status This section includes the most current smoking, or tobacco-related health factor, from the [place] facility where the Encounter took place. Date/Time Current Smoking Status Comment Alondra dariala Nov 23, 2022 02:30 PM VA-TOBACCO FORMER USER [facility] Tobacco Use History This section includes a history of the smoking, or tobacco-related health factors, that were collected on or before the date of the Encounter. The data comes from the [place] facility where the Encounter took place. Date/Time Smoking Status/Tobacco Use Comment Bernadette ghada Nov 23, 2022 02:30 PM VA-TOBACCO QUIT 15 YRS OR MORE [facility] Oct 16, 2021 09:30 AM VA-TOBACCO FORMER USER [facility] Oct 16, 2021 09:30 AM VA-TOBACCO QUIT 15 YRS OR MORE [facility] Sep 11, 2020 11:00 AM VA-TOBACCO FORMER USER [facility] Sep 11, 2020 11:00 AM VA-TOBACCO QUIT 5 TO < 15 YRS [facility] May 07, 2019 02:08 PM VA-TOBACCO FORMER USER [facility] May 07, 2019 02:08 PM VA-TOBACCO QUIT 5 TO < 15 YRS [facility] Mar 12, 2010 09:51 AM V9 QUIT TOBACCO >1 2 MO & <7 YRS AGO [facility] Mar 12, 2010 09:51 AM V9 TOBACCO OFFERED [facility] Feb 16, 2008 01:45 PM V9 QUIT TOBACCO IN THE LAST 12 MONTHS [facility] Oct 06, 2006 08:18 AM TOBACCO OFFERRED P T MEDS (PROVIDER) [facility] Oct 06, 2006 08:18 AM V9 CURRENT TOBACCO USER [facility] Oct 06, 2006 08:18 AM V9 TOBACCO OFFERED [facility] Jul 01, 2006 02:16 PM V9 CURRENT TOBACCO USER 1ppd [facility] Jul 02, 2005 02:53 PM HF V9 CURRENT SMOKER 1ppd [facility] Encounter Notes: All associated encounter notes This section contains the clinical notes associated to the Encounter. Date/Time Encounter Note(s) Provider Source Jul 17, 2024 08:59 AM LETTERS: LOCAL TITLE: SPECIALTY CONTACT LETTER STANDARD TITLE: LETTERS DATE OF NOTE: JUL 17, 2024@08:59 ENTRY DATE: JUL 17, 2024@08:59:34 AUTHOR: Jacob MCGUIRE COSIGNER: URGENCY: STATUS: COMPLETED [facility] [address] [place] [address] Mr. MIQUEL RAMOS LUCAS [address] [place], [place] [address] JUL 17, 2024 Dear MIQUEL ZAVALA, We have been unable to contact you by telephone to schedule an appointment in our C-PAP/Sleep clinic. Your health and well-being are important to us. Please call us at or . Select Option #2 and then #3. We look forward to hearing from you soon. Sincerely yours, C-PAP/Sleep [facility] DAT MCGUIRE [facility]
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
--- OUTSIDE RECORDS SUMMARY | 2024-09-27 22:33 | XMS_ITS ---
Author Name [facility] Address [address] [place] [address] Care Team Providers Care Tool Crib Attendant Name Role Phone LEAHYVERÓNICA DAY Primary Care Provider Unavailabl e Insurance Providers: [...] PART A Feb 18, 2019 PART A [id number] GAEL ZAVALA PATIENT MEDICARE (WNR) MEDICARE (M) PART B Feb 18, 2019 PART B [id number] GAEL ZAVALA PATIENT MEDICARE (WNR) MEDICARE (M) PART B Feb 18, 2019 PART B [id number] GAEL ZAVALA PATIENT MEDICARE (WNR) MEDICARE (M) PART B Feb 18, 2019 PART B [id number] GAEL ZAVALA PATIENT MEDICARE (WNR) MEDICARE (M) PART A Jul 21, 1993 PART A [id number] [id number] GAEL ZAVALA PATIENT MEDICARE (WNR) MEDICARE (M) PART A Jul 21, 1993 PART A [id number] GAEL ZAVALA PATIENT MEDICARE (WNR) MEDICARE (M) PART A Jul 21, 1993 PART A [id number] GAEL ZAVALA PATIENT Selected Encounter This section includes the information on record at [place] for the Encounter. Date/Time Encounter Type Encounter Description Reason Pro vider Source Apr 05, 2024 12:00 PM Outpatient Encounter ADMIN PAT ACTIVTIES (MASNONCT) [facility] Encounter Template Text not used by [place] Plan of Treatment: Future Appointments (+ 6 months) and Future Tests (+/- 45 days) The Plan of Treatment section includes future care activities for the patient from all [place] treatmentfacilities. This section includes future appointments and future orders which are active, pending or scheduled. Future Appointments This section includes appointments that were scheduled to occur 6 months from the date of the Encounter, up to a maximum of 20 appointments. The data comes from all [facility]. Appointment Date/Time Appointment Type Appointme nt Facility Name Apr 19, 2024 10:00 AM AMBULATORY - MED[facility]INE [facility] Apr 19, 2024 11:27 AM AMBULATORY - MEDICINE [facility] Jul 12, 2024 02:15 PM AMBULATORY - MEDICINE [facility] Aug 09, 2024 09:30 AM AMBULATORY - MEDICINE [facility] Sep 06, 2024 02:00 PM AMBULATORY - MEDICINE [facility] Sep 07, 2024 08:30 AM AMBULATORY - MEDICINE [facility] Active, Pending, and Scheduled Orders This section includes a listing of several types of active, pending, and scheduled orders, including clinic medications orders, diagnostic test orders, procedure orders and consult orders; where the start date of the order is 45 days before the date of the Encounter or 45 days after the date of theEncounter. The [facility] comes [facility]. Test Date/Time Test Type Test Details Facility Name Apr 19, 2024 12:00 AM Laboratory - Chemi stry Order VENOUS BLOOD GAS [id number] VENOUS BLOOD SP [facility] Social History: Smoking Status (Most current) and Tobacco Use (All prior to encounter date) This section includes the most current, and the historical, smoking and tobacco- related health factors from the [place] facility where the Encounter took place. Current Smoking Status This section includes the most current smoking, or tobacco-related health factor, from the [place] facility where the Encounter took place. Date/Time Current Smoking Status Comment Facil ity Dec 25, 1998 09:22 AM NON-TOBACCO USER [facility] Tobacco Use History This section includes a history of the smoking, or tobacco-related health factors, that were collected on or before the date of the Encounter. The data comes from the [place] facility where the Encounter took place. Date/Time Smoking Status/Tobacco Use Comment F acility Jan 17, 1998 06:10 PM NON-TOBACCO USER [facility] Encounter Notes: All associated encounter notes This section contains the clinical notes associated to the Encounter. Date/Time Encounter Note(s) Provider Source Apr 05, 2024 12:00 PM ADMINISTRATIVE NOT E: LOCAL TITLE: CLERICAL/ADMIN NOTE STANDARD TITLE: ADMINISTRATIVE NOTE DATE OF NOTE: APR 05, 2024@12:00 ENTRY DATE: APR 05, 2024@12:00:27 AUTHOR: ALDEN ZAARTE EXP COSIGNER: URGENCY: STATUS: COMPLETED presented for a new ID card. /tess/ ALDEN ZARATE Signed: 04/05/2024 12:00 [facility]
--- OUTSIDE RECORDS SUMMARY | 2024-09-27 22:33 | XMS_ITS | Encounter Summary ---
Author Name [facility] [place] [facility] [place] Address [address] [place] [address] Care Team Providers Care Back Tacker Name Role Phone VERÓNICA LEAHY Primary Care [...] PART A Feb 18, 2019 PART A [id number] GAEL ALLEN PATIENT MEDICARE (WNR) MEDICARE (M) PART B Feb 18, 2019 PART B [id number] GAEL ALLEN PATIENT MEDICARE (WNR) MEDICARE (M) PART B Feb 18, 2019 PART B [id number] [id number] GAEL ALLEN PATIENT MEDICARE (WNR) MEDICARE (M) PART B Feb 18, 2019 PART B [id number] [phone] [id number] GAEL ALLEN PATIENT MEDICARE (WNR) MEDICARE (M) PART A Jul 21, 1993 PART A [id number] GAEL ALLEN PATIENT MEDICARE (WNR) MEDICARE (M) PART A Jul 21, 1993 PART A [id number] GAEL ALLEN PATIENT MEDICARE (WNR) MEDICARE (M) PART A Jul 21, 1993 PART A [id number] GAEL ALLEN PATIENT Selected Encounter This section includes the information on record at [place] for the Encounter. Date/Time Encounter Type Encounter Description Reason Pro vider Source Jan 13, 2024 10:30 AM Outpatient Encounter ADMIN PAT ACTIVTIES (MASNONCT) IHE Encounter Template Text not used by [place] Plan of Treatment: Future Appointments (+ 6 months) and Future Tests (+/- 45 days) The Plan of Treatment section includes future care activities for the patient from all [place] treatmentfacilities. This section includes future appointments and future orders which are active, pending or scheduled. Future Appointments This section includes appointments that were scheduled to occur 6 months from the date of the Encounter, up to a maximum of 20 appointments. The data comes from all [place] treatment facilities. Appointment Date/Time Appointment Type Appointme nt Facility Name Jan 18, 2024 09:00 [facility] Apr 19, 2024 10:00 AM [facility] Apr 19, 2024 11:27 AM [facility] Jul 12, 2024 02:15 PM AM[facility]ULATORY - MEDICINE [facility] Social History: Smoking Status (Most current) and Tobacco Use (All prior to encounter date) This section includes the most current, and the historical, smoking and tobacco- related health factors from the [place] facility where the Encounter took place. Current Smoking Status This section includes the most current smoking, or tobacco-related health factor, from the [place] facility where the Encounter took place. Date/Time Current Smoking Status Dwight moss Nov 23, 2022 02:30 PM VA-TOBACCO FORMER USER [facility] Tobacco Use History This section includes a history of the smoking, or tobacco-related health factors, that were collected on or before the date of the Encounter. The data comes from the [place] facility where the Encounter took place. Date/Time Smoking Status/Tobacco Use Comment F acility Nov 23, 2022 02:30 PM VA-TOBACCO QUIT 15 YRS OR MORE [facility] Oct 16, 2021 09:30 AM VA-TOBACCO FORMER USER [facility] Oct 16, 2021 09:30 AM VA-TOBACCO QUIT 15 YRS OR MORE [facility] Sep 11, 2020 11:00 AM VA-TOBACCO FORMER USER [facility] Sep 11, 2020 11:00 AM VA-TOBACCO QUIT 5 TO < 15 YRS [facility] May 07, 2019 02:08 PM VA-TOBACCO FORMER USER [facility] May 07, 2019 02:08 PM VA-TOBACCO QUIT 5 TO < 15 YRS [facility] Mar 12, 2010 09:51 AM V9 QUIT TOBACCO >1 2 MO & <7 YRS AGO [facility] Mar 12, 2010 09:51 AM V9 TOBACCO OFFERED [facility] Feb 16, 2008 01:45 PM V9 QUIT TOBACCO IN THE LAST 12 MONTHS [facility] Oct 06, 2006 08:18 AM TOBACCO OFFERRED P T MEDS (PROVIDER) [facility] Oct 06, 2006 08:18 AM V9 CURRENT TOBACCO USER [facility] Oct 06, 2006 08:18 AM V9 TOBACCO OFFERED [facility] Jul 01, 2006 02:16 PM V9 CURRENT TOBACCO USER 1ppd [facility] Jul 02, 2005 02:53 PM HF V9 CURRENT SMOKER 1ppd [facility] Encounter Notes: All associated encounter notes This section contains the clinical notes associated to the Encounter. Date/Time Encounter Note(s) Provider Source Jan 13, 2024 10:30 AM CAREGIVER CERTIFIC ATE: LOCAL TITLE: CSP PCAFC CEAT REVIEW CONSULT STANDARD TITLE: CAREGIVER CERTIFICATE DATE OF NOTE: JAN 13, 2024@10:30 ENTRY DATE: JAN 13, 2024@10:30:52 AUTHOR: KOMAL GUNTER EXP COSIGNER: URGENCY: STATUS: COMPLETED Centralized Eligibility and Appeals Team (CEAT) Review Note The Centralized Eligibility and Appeals Team is responsible for dispositioning initial and ongoing eligibility determinations, to include level of care, as well as appeal determinations within the Caregiver Support Program's (CSP) Program of Comprehensive Assistance for Family Caregivers (PCAFC). PCAFC is a clinical program involving initial assessment and periodic reassessment for continued eligibility based on the needs of the eligible and/or Family Caregivers. Decisions to discontinue an individual's participation may be impacted by changes in the [place] and/or Family Caregiver(s)' circumstances, changes in needs or abilities, or VA may seek to discharge a participant due to failure to meet expectations or otherwise adhere to the intent of the program. Date of CEAT Review: Dec Full Name: MIQUEL ALLEN SSN: [id number] Date of : Feb Address: Mr. MIQUEL ALLEN [address] [place] [address] Phone number: Reasons for CEAT review: Initial Application Review and at least one Family Caregiver applicant have submitted a valid application for the PCAFC. 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 Yes 3) The individual is in need of personal care services for a minimum of six continuous months based on any one of the following: An inability to perform an activity of daily living or A need for supervision, protection, or instruction *In need of personal care services means that the eligible [place] requires in-person personal care services from another person, and without such personal care services, alternative in-person caregiving arrangements (including respite care or assistance of an alternative caregiver) would be required to support the eligible [place]'s safety. *Personal Care Services means care or assistance of another person necessary in order to support the eligible 's health and well-being, and perform personal functions required in everyday living ensuring the eligible remains safe from hazards or dangers incident to his or her daily environment. No 4) It is in the best interest of the individual to participate in the program. *In the best interest means a clinical determination that participation in PCAFC is likely to be beneficial to the or 911 emergency services dispatcher. Such determination will include consideration, by a clinician, of whether participation in the program significantly enhances the [place]'s or 911 emergency services dispatcher's ability to live safely in a home setting, supports the 's or 911 emergency services dispatcher's potential progress in rehabilitation, if such potential exists, increases the 's or 911 emergency services dispatcher's potential independence, if such potential exists, and creates an environment that supports the health and well-being of the [place] or 911 emergency services dispatcher. Not fully evaluated. Eligibility for PCAFC requires a multistep evaluation process. Once a criterion is determined to not be met, the evaluation concludes, and a decision is issued. [place] does not meet PCAFC eligibility criteria. 5) Personal care services that would be provided by the Family Caregiver will not be simultaneously and regularly provided by or through another individual or entity. Not fully evaluated. Eligibility for PCAFC requires a multistep evaluation process. Once a criterion is determined to not be met, the evaluation concludes, and a decision is issued. [place] does not meet PCAFC eligibility criteria. 6)The individual receives care at home or will do so if [place] designates a Family Caregiver. Not fully evaluated. Eligibility for PCAFC requires a multistep evaluation process. Once a criterion is determined to not be met, the evaluation concludes, and a decision is issued. [place] does not meet PCAFC eligibility criteria. 7) The individual receives ongoing care from a primary care team or will do so if [place] designates a Family Caregiver. *Primary care team means one or more medical technologist chief who care for a patient based on the clinical needs of the patient. Primary care teams must include a [place] primary care provider who is a physician, advanced practice nurse, or a physician escrow assistant. Not fully evaluated. Eligibility for PCAFC requires a multistep evaluation process. Once a criterion is determined to not be met, the evaluation concludes, and a decision is issued. [place] does not meet PCAFC eligibility criteria. CAREGIVER REQUIREMENTS Primary Family Caregiver applicant Primary Family Caregiver applicant name: Roya Carroll 1) Is the Primary Family Caregiver applicant 18 years of age or older? Yes 2) Is the Primary Family Caregiver applicant a family member or will live with the if designated as a Family Caregiver? Yes Relationship to : daughter Residence of applicant: see Electronic Health Record (EHR) 3) Is there a determination by VA of abuse or neglect of the by the Primary Family Caregiver applicant? No PROGRAM PARTICIPATION REQUIREMENTS 1)The application process is completed within 90 days. Yes 2) The [place] or 911 emergency services dispatcher resides in a State, defined as each of the several States, Territories, and the [facility] the [facility], the district [facility], and the [facility]. Yes DETERMINATION SECTION Denied - The [place] and Family Caregiver applicant have been found not eligible for the Program of Comprehensive Assistance for Family Caregivers. - or 911 emergency services dispatcher does not require personal care services for a minimum of 6 continuous months based on an inability to perform an ADL and/or a need for supervision, protection or instruction. Centralized Eligibility and Appeals Team (CEAT) determination summary as follows: Miquel Allen [address] [id number] [facility] 01/13/2024 Dear Miquel Allen: Thank you for your interest in the Program of Comprehensive Assistance for Family Caregivers (PCAFC). We have made a decision on your [place] Form 10-10CG PCAFC application that was received on 11/25/2023. This letter informs you of our decision. It lists the evidence used and reasons for our decision. We have also included information about what to do if you disagree with our decision, and who to contact if you have questions or need assistance. The following individuals were considered during this application review: [place]: Miquel Allen Primary Family Caregiver Applicant: Roya Carroll WHAT WE DECIDED The Centralized Eligibility and Appeals Team (CEAT) determined that you and each Family Caregiver identified on [place] Form 10-10CG do not meet the current eligibility requirements for PCAFC and your application is denied. EXPLANATION OF DECISION PCAFC eligibility requirements can be found in 38 U.S.C. 1720G, Assistance and Support Services for Caregivers, and 38 C.F.R. Part 71, Caregivers Benefits and Certain Medical Benefits Offered to Family Members of Veterans. For the purposes of this letter, the term [place] means an eligible of the Armed Forces or an eligible hotel staff member of the Armed Forces who has been found unfit for duty due to a medical condition by their Service's Physical Evaluation Board, and a date of medical discharge has been issued. The term Armed Forces means the active , naval, air, or space service as described in section 101 of title 38, [place] Code. The Program Requirements and Findings section of this letter includes PCAFC eligibility criteria that were evaluated to make this decision. Your denial for PCAFC was based on the determination that one or more applicants did not meet PCAFC eligibility requirements based on one or more of the below reasons: The [place] applicant is not in need of personal care services for a minimum of six continuous months based on: an inability to perform an activity of daily living (ADL) a need for supervision or protection based on symptoms or residuals of neurological or other impairment or injury a need for regular or extensive instruction or supervision without which the ability of the to function in daily life would be seriously impaired EVIDENCE CONSIDERED TO MAKE THE DECISION We based this decision on the following records: [place] Form 10-10CG, Application for the Program of Comprehensive Assistance for Family Caregivers, dated 11/25/2023. Intake, dated 11/28/2023. Assessment, dated 12/09/2023. [place] Functional Assessment, dated 12/28/2023. Caregiver Assessment, dated 12/09/2023. Primary Care Collaboration, dated 12/09/2023. VA Medical Records, dated records within range of: 0733-1467, including, but not limited to the following: PC Progress Note: 12/29/2023; PC Health Tech/LABEL PINKER Note: 12/29/2023; Homemaker/Home Health Aid Social Work Note: 11/23/2023; Pulmonary Clinic Physician Note: 09/08/2023, 04/07/2023, 11/23/2022, 07/01/2022; [facility] ITP Note: 09/05/2023; OPC Medicine Clinic Intake: 04/07/2023; Audiology Hearing Aid Repair: 04/07/2023; Nutrition Outpatient Consult Response: 12/16/2022; Occupational Therapy Note: 02/11/2022. Non-VA Medical Records, including [facility]: 12/09/2023; Endocrinology: 11/30/2023; Physical Therapy: 09/21/2023; [facility] Primary Care: 07/28/2023; [facility]: 06/16/2022. PROGRAM REQUIREMENTS AND FINDINGS Below are the program eligibility requirements for Veterans and Family Caregivers for participation in the Program of Comprehensive Assistance for Family Caregivers, with notation if the requirement was met or unmet. FINDINGS Evaluation of initial and ongoing PCAFC eligibility requires comprehensive assessment of the and Family Caregiver(s) or Applicant(s). Over time, the needs and circumstances of Veterans and caregivers change, therefore, an eligible [place] or Family Caregiver's eligibility may also change and will be periodically reassessed as applicable. As a result, certain findings in PCAFC decisions are time specific. In making our determination, we made the following findings as identified in 38 C.F.R. 71.20, Eligible Veterans and Service Members, and 38 C.F.R, 71.25, Approval and Designation of Primary and Secondary Family Caregivers, however; note that any favorable findings are dynamic in nature and apply to circumstances that are subject to change control manager time. Thus, in the future, these findings will require re-evaluation. The applicant is a , or a member of the Armed Forces undergoing medical discharge from the Armed Forces. The term means a person who served in the active , naval, air, or space service, and who was discharged or released therefrom under conditions other than dishonorable. The term undergoing medical discharge means the hotel staff member has been found unfit for duty due to a medical condition by their Service's Physical Evaluation Board, and a date of medical discharge has been issued. Requirement met due to the applicant is a , or a member of the Armed Forces undergoing medical discharge from the Armed Forces. The [place] applicant has a serious injury incurred or aggravated in the line of duty in the active , naval, or air service. The term serious injury means any service-connected disability that (1) is rated at 70 percent or more by VA; or (2) is combined with any other service-connected disability or disabilities, and a combined rating of 70 percent or more is assigned by VA. Requirement met due to the incurred or aggravated a serious injury in the line of duty. The [place] has a Single service-connected disability rating of 100% assigned by VA. The applicant resides in a State. The term State means each of the several States, Territories, and the [facility] of the [place], the District [facility], and the [facility]. Requirement met due to the applicant residing in [place], [place]. The applicant is in need of personal care services for a minimum of six continuous months. In need of personal care services means the eligible [place] requires in-person personal care services from another person, and without such personal care services, alternative in-person caregiving arrangements (including respite care or assistance of an alternative caregiver) would be required to support the eligible [place]'s safety. Personal care services means care or assistance of another person necessary in order to support the eligible 's health and well-being, and perform personal functions required in everyday living ensuring the eligible remains safe from hazards or dangers incident to his or her daily environment. Requirement unmet due to: The [place] applicant is not in need of personal care services. The Program of Comprehensive Assistance for Family Caregivers (PCAFC) is intended to address the needs of Veterans and focus on eligible Veterans with moderate and severe needs. The record does not support a need for activities of daily living, and/or a need for supervision or protection based on symptoms or residuals of neurological or other impairment or injury, and/or a need for regular or extensive instruction without which the ability of the to function in daily life would be seriously impaired. The CEAT acknowledges the care and support that is provided by the [place]'s caregiver; however, the does not meet the minimum standards for program eligibility at this time. The applicant is in need of personal care services for a minimum of six continuous months based on any one of the following: An inability to perform an activity of daily living (ADL). Inability to perform an ADL means a requires personal care services each time the applicant completes one or more of the following ADLs: Requirement unmet Feeding oneself due to loss of coordination of upper extremities, extreme weakness, inability to swallow, or the need for a non-oral means of nutrition: Requirement unmet due to [place]'s report, [place]'s caregiver report, and evidence (listed above) from the record. When determining PCAFC eligibility for the ADL of feeding, a must require hands-on assistance with the actual task of feeding, as defined by bringing food and/or liquids to the mouth once a meal is placed before the person. Other tasks such as preparing meals or providing meal set-up, like cutting up food, are not taken into consideration. CSP assessments ( Functional Assessment Instrument (VFAI), Caregiver Assessment, and [place] Assessment, listed above) report that [place] does not need hands-on assistance with eating/feeding tasks. The VFAI reports that the [place] is able to bring fork, cup or spoon to mouth for meal without any assistance. This report is consistent with records reviewed that do not reflect reported difficulties performing this ADL or document any significant physical functional impairment that would indicate an inability to perform the ADL of eating/feeding without hands-on assistance from another person ( Progress Note: 12/29/2023; Homemaker/Home Health Aid Social Work Note: 11/23/2023; [facility]: 12/09/2023; Endocrinology: 11/30/2023). Based on review of [place]'s records as well as and his caregiver's report, we determined that does not require personal care services due to an inability to perform the ADL of eating/feeding each time, and thus does not meet PCAFC eligibility criterion for this ADL. Grooming oneself in order to keep oneself clean and presentable: Requirement unmet due to 's report, 's caregiver report, and evidence (listed above) from the record. When determining PCAFC eligibility for the ADL of grooming, a must require hands-on assistance with completing oral hygiene and/or washing upper body areas each time grooming is completed. CSP assessments report that does not need hands-on assistance with oral hygiene and washing the upper body. The VFAI reports that the [place] is able to brush his teeth and can bathe his upper body without hands-on assistance. This report is consistent with records reviewed that do not reflect reported difficulties performing this ADL or document any significant physical functional impairment that would indicate an inability to perform the ADL of grooming without hands-on assistance from another person ( Progress Note: 12/29/2023; Homemaker/Home Health Aid Social Work Note: 11/23/2023; [facility]: 12/09/2023; Endocrinology: 11/30/2023). Based on review of [place]'s records as well as [place] and his caregiver's report, we determined that does not require personal care services due to an inability to perform the ADL of grooming each time, and thus does not meet PCAFC eligibility criterion for this ADL. Bathing: Requirement unmet due to [place]'s report, 's caregiver report, and evidence (listed above) from the record. When determining PCAFC eligibility for the ADL of bathing, a [place] must require hands-on assistance with washing, rinsing, and drying each time the ADL of bathing is completed. CSP assessments report that does not need hands-on assistance with bathing tasks. The AI reports that the has a handicap accessible bathroom and can sit on a bench to complete bathing tasks. [place] can wash his hair without assistance, but reports that bathing causes dyspnea. makes sure that someone else is home when he showers in case he needs assistance. This report is consistent with records reviewed that do not reflect reported difficulties performing this ADL or document any significant physical functional impairment that would indicate an inability to perform the ADL of bathing without hands-on assistance from another person (PC Progress Note: 12/29/2023; Homemaker/Home Health Aid Social Work Note: 11/23/2023; [facility]: 12/09/2023; Endocrinology: 11/30/2023). Based on review of [place]'s records as well as and his caregiver's report, we determined that does not require personal care services due to an inability to perform the ADL of bathing each time, and thus does not meet PCAFC eligibility criterion for this ADL. Dressing or undressing oneself: Requirement unmet due to 's report, [place]'s caregiver report, and evidence (listed above) from the record. When determining PCAFC eligibility for the ADL of dressing, a must require hands-on assistance with upper and/or lower body dressing each time the ADL of dressing is completed. CSP assessments report that does not need hands-on assistance with dressing tasks. In the VFAI, [place] states, he can get his upper body dressing turned around and will have CG straighten out to the correct place for donning. [place] is able to don and doff underwear and shorts. [place] is unable to bend over to don and doff footwear as it causes pressure on his diaphragm and back pain. This report is partially consistent with records reviewed that do not reflect reported difficulties performing this ADL or document any significant physical functional impairment that would indicate an inability to perform the ADL of dressing without hands-on assistance from another person (PC Progress Note: 12/29/2023; Homemaker/Home Health Aid Social Work Note: 11/23/2023; [facility]: 12/09/2023; Endocrinology: 11/30/2023). There is no objective evidence in the records that [place] has a physical or cognitive deficit that would necessarily render [place] incapable of completing basic ADLs either independently, with modified-independence, or with minor assistance (i.e., supervision, stand-by, touching, or set-up/clean-up). A common strategy for promoting functional independence (i.e. the performance of self-care activities without assistance from another person) in everyday life is to utilize adaptations in the individual's physical environment and/or utilize of adaptive equipment to promote functional independence in self-care activities. CSP assessments do not report the usage of any dressing adaptive equipment for footwear such as a long-handled shoe horn or sock aid. Based on review of 's records as well as [place] and his caregiver's report, we determined that does not require personal care services due to an inability to perform the ADL of dressing each time, and thus does not meet PCAFC eligibility criterion for this ADL. Toileting or attending to toileting: Requirement unmet due to [place]'s report, [place]o's caregiver report, and evidence (listed above) from the record. When determining PCAFC eligibility for the ADL of toileting, a [place] must require hands-on assistance with adjusting clothes before and after voiding or having a bowel movement, and with maintaining perineal hygiene each time toileting is completed. CSP assessments report that [place]o does not need hands-on assistance with toileting tasks. This report is consistent with records reviewed that do not reflect reported difficulties performing this ADL or document any significant physical functional impairment that would indicate an inability to perform the ADL of toileting without hands-on assistance from another person (PC Progress Note: 12/29/2023; Homemaker/Home Health Aid Social Work Note: 11/23/2023; [facility]: 12/09/2023; Endocrinology: 11/30/2023). Based on review of [place]o's records as well as Tiana and his caregiver's report, we determined that Tiana does not require personal care services due to an inability to perform the ADL of toileting each time, and thus does not meet PCAFC eligibility criterion for this ADL. Adjusting any specific prosthetic or orthopedic appliance, that by reason of the particular disability, cannot be done without assistance (this does not include the adjustment of appliances that nondisabled persons would be unable to adjust without aid, such as supports, belts, lacing at the back, etc.): Requirement unmet due to Tiana does not use a prosthetic or orthopedic appliance. Mobility (walking, going up stairs, transferring from bed to chair, etc.): Requirement unmet due to [place]'s report, [place]'s caregiver report, and evidence (listed above) from the record. PCAFC eligibility for the ADL of mobility means requiring hands-on assistance from a caregiver each time with multiple types of positioning/transfer tasks or with walking or propelling/operating a manual or motorized wheelchair. CSP assessments report that Tiana is mostly able to complete bed mobility, transfers, and walking up to 50 feet without hands-on assistance. This report is partially consistent with records reviewed that do not reflect reported difficulties performing this ADL or document any significant physical functional impairment that would indicate an inability to perform the ADL of mobility without hands-on assistance from another person. Tiana's Physical Therapy (PT) provider assessed him as being able to perform sit to standing transfer independently, ambulate with a walker, and denied recent falls (Physical Therapy: 09/21/2023). Tiana's PT provider reported that he did require rest breaks at times when he became short of breath, but his oxygen saturation level did not drop below 92%. Tiana has a motorized scooter for community distances. Tiana is prescribed home oxygen support to utilize as needed during sleep and with exertion (Pulmonary Clinic Physician: 04/07/2023). Based on review of [place]o's records as well as and his caregiver's report, we determined that does not require personal care services due to an inability to perform the ADL of mobility each time, and thus does not meet PCAFC eligibility criterion for this ADL. The applicant has a need for supervision or protection based on symptoms or residual of neurological or other impairment or injury: Requirement unmet due to [place]'s report, 's caregiver report, and evidence (listed above) from the record. CSP assessments report needs medication set-up, can safely manage a changing environment or potentially harmful situation, needs someone else to be with him always to observe or provide supervision, needs someone else to be with him when away from home to keep him safe, needs assistance with providing and/or arranging for his health and safety, but is able to identify his own needs. This report is inconsistent with information in records reviewed. Records report [place]o as being fully oriented/engaged in appointments, understanding their current treatment plan, participatory in treatment planning, and retaining decisional capacity (PC Progress Note: 12/29/2023; Endocrinology: 11/30/2023; [facility] PCAFC Primary Care Collaboration: 12/09/2023; [facility] PCAFC Application intake: 11/28/2023). Additionally, it is reported the is able to drive. Although, driving is not a disqualifier for PCAFC eligibility, it is important as a marker of overall functional abilities because driving is a highly complex and potentially high- risk functional task that requires successful integration of physical, cognitive, and behavioral skills. In total, records indicated 's physical health, mental health, and cognition are relatively stable without documented safety issues requiring caregiver intervention. Records reviewed did not support a need for supervision or protection based on symptoms or residuals of neurological impairment or other injury, as defined in 38 U.S.C. 1720G(a)(2)(C) (ii). Therefore, this PCAFC eligibility criterion is unmet. The applicant has a need for regular or extensive instruction or supervision without which the ability of the to function in daily life would be seriously impaired: Requirement unmet due to [place]'s report, 's caregiver report, and evidence (listed above) from the record. CSP assessments report [place] denies delusions, hallucinations, and wandering, but does report episodes of agitation and impulsivity that may need cues at times. The [facility] reports that the [place] does not require stand-by or continuous cueing, supervision, or step by step instructions from a caregiver in order to function in daily life. This report is partially consistent with information in records reviewed. Records report [place]o as having a stable mental status in recent appointments without report of unsafe behaviors or poor judgment (PC Progress Note: 12/29/2023; Endocrinology: 11/30/2023; [facility] Primary Care Collaboration: 12/09/2023; [facility] Application intake: 11/28/2023). Further, records reviewed did not document any psychiatric hospitalizations, psychosis, risk of harm to self/others, impaired reality testing, unsafe behaviors or poor judgment that would require a caregiver to keep safe from harm, or an indication for formal cognitive testing. As previously mentioned, [place]o is able to drive and this is a marker of overall functional abilities because driving is a highly complex and potentially high-risk functional task that requires successful integration of physical, cognitive, and behavioral skills. In total, records did not indicate any significant cognitive limitations or mental health symptoms that required caregiver intervention. Records reviewed did not support a need for regular or extensive instruction or supervision without which the ability of the to function in daily life would be seriously impaired, as defined in 38 U.S.C. 1720G(a)(2)(C)(iii). Therefore, this [facility] eligibility criterion is unmet. FAMILY CAREGIVER FINDINGS The Family Caregiver applicant resides in a State. The term State means each of the several States, Territories, and the [facility] [place] of the [place], the [place], and the [facility]. Requirement met due to the Family Caregiver applicant residing in a State . The Family Caregiver applicant is the eligible [place]'s spouse, son, daughter, parent, stepfamily member, extended family member, or someone who lives with the eligible [place] full-time or will do so if designated as a Family Caregiver. Requirement met due to the Family Caregiver is a spouse, son, daughter, parent, stepfamily member, extended family member, or someone who lives with the eligible [place] full-time or will do so if designated as a Family Caregiver. The Family Caregiver applicant is 18 years of age or older. Requirement met due to the Family Caregiver applicant is 18 years of age or older. There is no determination by VA of abuse or neglect of the eligible by the Family Caregiver applicant. Requirement met due to there has been no determination by VA of abuse or neglect of the eligible [place] by the Family Caregiver applicant. REQUIREMENTS NOT FULLY EVALUATED Eligibility for PCAFC requires a multistep evaluation process. Once a requirement is determined to be unmet, the evaluation concludes, and a decision is issued. The evaluation process concluded and the full spectrum of evaluations necessary to approve and designate a Family Caregiver were not completed. The following additional requirements were not fully evaluated and would require evaluation prior to approval and designation of a Family Caregiver: It is in the best interest of the applicant to participate in the program. In the best interest is a clinical determination that participation in the program is likely to be beneficial to the [place]. Such determination includes consideration, by a clinician, of whether participation in the program: Significantly enhances the 's ability to live safely in a home setting; Supports the 's potential progress in rehabilitation, if such potential exists; Increases the [place]'s potential independence, if such potential exists; and/or Creates an environment that supports the health and well-being of the [place]. The personal care services that would be provided by the Family Caregiver applicant will not be simultaneously and regularly provided by or through another individual or entity. The [place] applicant receives care at home or will do so if [place] designates a Family Caregiver. The applicant receives ongoing care from a primary care team or will do so if [place] designates a Family Caregiver. Primary care team means one or more medical technologist chief who care for a patient based on the clinical needs of the patient. Primary care teams must include a [place] primary care provider who is a physician, advanced practice nurse, or a physician escrow assistant. Your Family Caregiver applicant has not completed caregiver training and demonstrated the ability to carry out the specific personal care services, core competencies, and additional care requirements. Your Family Caregiver applicant has not participated in a home-care assessment which assesses your well-being, the well-being of your caregiver, as well as their competence to provide personal care services at your home. HOW TO OBTAIN OR ACCESS INFORMATION USED IN MAKING THIS DECISION You may request a copy of the evidence we used to make our decision the following ways. If you utilize [facility], you may access your records through that system. You may also request a copy of your records by submitting a signed and completed VA Form 10-5345a, Individuals' Request for a Copy of Their Own Health Information, to the Tutorial Laboratory Supervisor at your local [place] medical facility. VA Form [id number] can be found at www.va.gov/vaforms/medica l/pdf/VHA% 20Form%[email or web address]- revision.pdf. WHAT TO DO IF YOU DISAGREE WITH THE DECISION If you disagree with this decision, you have the right to request [facility] (A) review, or appeal to the Board of Veterans' Appeals (Board). Your options for doing so are described in the attached VA Form 10-305, Your Rights to Seek Further Review of PCAFC Decisions. OTHER VA SERVICES AND PROGRAMS TO SUPPORT CAREGIVERS PCAFC is just one way [place] supports caregivers. Program of General Caregiver Support Services (PGCSS) Caregivers not eligible for PCAFC may be eligible to participate in PGCSS, which is a separate program under the VA Caregiver Support Program. PGCSS provides: Caregiver skills training and education, both online and in-person Coaching, supportive counseling and support groups Peer Support Mentoring Information on and referrals to VA and community resources There is no application needed for PGCSS. For more information about PGCSS, please contact your local [place] Caregiver Support Program or visit the VA Caregiver Support Program's website at www.caregiver.va.gov. [place] [facility] (GE) [facility] offers a variety of programs to support Veterans and caregivers, including services in the home and in the community. Please visit the GE website at www.va.gov/GERIATRICS for information on all [facility] services and additional resources. [facility] [place] [facility] serves as the foundation of [facility] ([facility]) health care and is the first point of contact with the health care system for Veterans enrolled in [facility]. If you are interested in learning about any VA resources, please speak with your Patient Aligned Care Team (PACT) Crime Specialist or Primary Care provider for more information or assistance with a referral. If you have any questions about this letter or other matters, please contact the local [place]'s Caregiver Support Program (phone number enclosed) or visit the Caregiver Support Program's website at www.caregiver.va.gov. Sincerely, Caregiver Support Program Team ENCLOSURES: Local [place] [facility] Contact Information Program of Comprehensive Assistance for Family Caregivers Eligibility Criteria Fact Sheet VA FORM 10305 Your Rights to seek Further Review of Program of Comprehensive Assistance for Family Caregivers (PCAFC) Decisions Changes to Review and Appeal Options for PCAFC Decisions FAQs Other: CC: Roya Carroll /es/ Komal Gunter, CONCRETE STONE FINISHING SUPERVISOR-BC V09 CEAT Nurse Practitioner Signed: 01/13/2024 10:33 Receipt Acknowledged By: 01/13/2024 21:57 /tess/ CHARLI MURRAY CEAT Crime Specialist 01/13/2024 11:07 /es/ BELINDA PRECIADO LCSW Caregiver Reception Manager for LENA RICKSAnnamariaVELMA 01/13/2024 11:53 /es/ Penny Sarmiento PsyD, MSCP VISN 9 CEAT Psychologist [facility]
--- OUTSIDE RECORDS SUMMARY | 2024-09-27 22:34 | XMS_ITS | Encounter Summary ---
Author Name [facility] [facility] Address [address] [place] [address] Care Team Providers Care Vacuum Spindle Sander Name Role Phone VERÓNICA LEAHY Primary Care [...] PART A Feb 18, 2019 PART A [id number] GAEL ALLEN PATIENT MEDICARE (WNR) MEDICARE (M) PART B Feb 18, 2019 PART B [id number] GAEL ALLEN PATIENT MEDICARE (WNR) MEDICARE (M) PART B Feb 18, 2019 PART B [id number] GAEL ALLEN PATIENT MEDICARE (WNR) MEDICARE (M) PART B Feb 18, 2019 PART B [id number] GAEL ALLEN PATIENT MEDICARE (WNR) MEDICARE (M) PART A Jul 21, 1993 PART A [id number] GAEL ALLEN PATIENT MEDICARE (WNR) MEDICARE (M) PART A Jul 21, 1993 PART A [id number] GAEL ALLEN PATIENT MEDICARE (WNR) MEDICARE (M) PART A Jul 21, 1993 PART A [id number] GAEL ALLEN PATIENT Selected Encounter This section includes the information on record at [place] for the Encounter. Date/Time Encounter Type Encounter Description Reason Provider Source Apr 19, 2024 10:00 AM OFFICE O/P EST HI 40 MIN PULMONARY/CHEST ICD-10-CM J45.50 Severe persistent asthma, uncomplicated HERMAN MONTOYA Aug[facility] Encounter Template Text not used by [place] Assessments - Encounter Diagnoses This section includes the primary and secondary diagnoses documented for the Encounter. Date/Time Primary/Secondary Diagnosis Diagnosis Name Provider Source Apr 19, 2024 11:37 AM PRIMARY Severe persistent asthma, uncomplicated HERMAN MONTOYA [facility] Apr 19, 2024 11:37 AM SECONDARY Allergic rhinitis, unspecified [place] [facility] Apr 19, 2024 11:37 AM SECONDARY Chronic respiratory failure with hypoxia HERMAN MONTOYA [facility] Apr 19, 2024 11:37 AM SECONDARY Obstructive sleep apnea (adult) (pediatric) HERMAN MONTOYA [facility] Plan of Treatment: Future Appointments (+ 6 months) and Future Tests (+/- 45 days) The Plan of Treatment section includes future care activities for the patient from all [place] [facility]. This section includes future appointments and future orders which are active, pending or scheduled. Future Appointments This section includes appointments that were scheduled to occur 6 months from the date of the Encounter, up to a maximum of 20 appointments. The data comes from all [place] treatment facilities. Appointment Date/Time Appointment Type Appointme nt Facility Name Jul 12, 2024 02:15 PM AMBULATORY - MEDICINE [facility] Aug 09, 2024 09:30 AM AMBULATORY - MEDICINE [facility] Sep 06, 2024 02:00 PM AMBULATORY - MEDICINE [facility] Sep 07, 2024 08:30 AM AMBULATORY - MEDICINE [facility] Active, Pending, and Scheduled Orders This section includes a listing of several types of active, pending, and scheduled orders, including clinic medications orders, diagnostic test orders, procedure orders and consult orders; where the start date of the order is 45 days before the date of the Encounter or 45 days after the date of theEncounter. The data comes from all [place] treatment facilities. Test Date/Time Test Type Test Details Facility Name Apr 19, 2024 12:00 AM Laboratory - Chemi stry Order VENOUS BLOOD GAS PVR-XRUOTY-MRANY VENOUS BLOOD SP [facility] Social History: Smoking Status (Most current) and Tobacco Use (All prior to encounter date) This section includes the most current, and the historical, smoking and tobacco- related health factors from the [place] facility where the Encounter took place. Current Smoking Status This section includes the most current smoking, or tobacco-related health factor, from the [place] facility where the Encounter took place. Date/Time Current Smoking Status Comment Facil ity Dec 25, 1998 09:22 AM NON-TOBACCO USER [facility] Tobacco Use History This section includes a history of the smoking, or tobacco-related health factors, that were collected on or before the date of the Encounter. The data comes from the [place] facility where the Encounter took place. Date/Time Smoking Status/Tobacco Use Comment F ghada Jan 17, 1998 06:10 PM NON-TOBACCO USER [facility] Encounter Notes: All associated encounter notes This section contains the clinical notes associated to the Encounter. Date/Time Encounter Note(s) Provider Source Apr 19, 2024 11:28 AM PULMONARY NOTE: LOCAL TITLE: PULMONARY CLINIC PHYSICIAN NOTE STANDARD TITLE: PULMONARY NOTE DATE OF NOTE: APR 19, 2024@11:28 ENTRY DATE: APR 19, 2024@11:28:56 AUTHOR: LUCRECIA HU EXP COSIGNER: HERMAN MONTOYA URGENCY: STATUS: COMPLETED PULMONARY CLINIC PHYSICIAN NOTE Has ADDENDA HPI: Mr Allen is a 66 yo man with PMH significant for asthma that has been diagnosed 30 years ago. He has been on high dose mometasone and stiolto. He is using triple therapy and is compliant. He has had ongoing dyspnea for the past year since his DC. Of note, in 05/2022 he had a STEMI that was treated at OSH with 2 stents and completed cardiopulmonary rehab. He states he is feeling better and has good and bad days. His echo at the time showed EF 50% with diastolic dysfunction and some mild RV dilation. His AR and GERD are well controlled. He is trying to use his CPAP more regularly. He is on wheel chair for long distances but he can move around in the house without oxygen. Currently he states he feels his dyspnea is stable, he did go to urgent care recently for asthma exacerbation. Today he states, he is still feeling short of breath and had to take steroids recently for asthma exacerbation. Overall he feels stable and back to baseline. However he has not been taking mometasone regularly at home. He states he forgets to take it. He does use his albuterol multiple times a day due to dyspnea but also stops and rests at the same time. He has lost 17 lbs and feels that has improved his breathing as well. He is currently doing home based pulmonary rehab and feels that has also helped. Past 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: Active problems - Computerized Problem List is the source for the followin. Memory loss 2. Seborrhoeic dermatitis of scalp 3. CAD - Coronary artery disease s/p cath and stent 05/2022 4. Obstructive sleep apnea syndrome 5. Allergic rhinitis 6. Chronic obstructive lung disease 7. Hyperlipidemia 8. Insomnia 9. Chronic pain 10. Diabetic neuropathy 11. hypertension, essential 12. Diabetes Mellitus without mention of Complication, type II or unspecified ty 13. Simple obesity 14. Gastroesophageal reflux disease (SNOMED CT [id number]) 15. Severe persistent allergic asthma uncontrolled (SNOMED CT [id number]) 16. Depressive disorder IM - Immunizations ADMINISTERED Immunization Series Date Facility Reaction Info COVID-19 (Anchor™), VECTOR-NR, R* 1 09/20/2020 [facility] COVID-19 ([place]), MRNA, LNP-S, * 1 04/21/2022 [facility]* COVID-19 ([facility]), MRNA, LNP-S, * 2 05/29/2021 [facility]* COVID-19 ([facility]), MRNA, LNP-S, * 1 01/26/2022 [place] [facility] FLU,3 YRS (HISTORICAL) 06/12/2003 [facility]* INFLUENZA A & B (HISTORICAL) [facility] INFLUENZA A & B (HISTORICAL) [facility] INFLUENZA, HIGH-DOSE, QUADRIVALE* 2 04/07/2023 [place] [facility] INFLU[place], SPLIT VIRUS, QUADRIVA* 1 04/23/2022 [facility] [facility] INFLU[place], UNSPECIFIED FORMULATI* [facility] [place]* INFLUENZA, UNSPECIFIED FORMULATI* [place]* INFLUENZA, UNSPECIFIED FORMULATI* [place]* INFLUENZA, UNSPECIFIED FORMULATI* 04/22/1997 [facility]* INFLUENZA, UNSPECIFIED FORMULATI* 04/25/1996 [facility]* PNEUMOCOCCAL CONJUGATE PCV20, PO* 08/18/2021 No Site PNEUMOCOCCAL, UNSPECIFIED FORMUL* 11/18/1993 [place]* <C> TD(ADULT) UNSPECIFIED FORMULATION 02/27/2007 [facility]* TD(ADULT) UNSPECIFIED FORMULATION 11/18/1996 [place]* <C> ZOSTER RECOMBINANT 2 03/29/2019 [place]* ZOSTER RECOMBINANT 1 01/21/2019 [place]* CONTRAINDICATED No data available REFUSED ======= Immunization Date Facility Info COVID-19 ([facility]), MRNA, LNP-S, * 12/29/2023 [facility]* <I> <C> See the Detailed Immunizations Health Summary Component[DIM] for Comments <I> See the Detailed Immunizations Health Summary Component[DIM] for Additional Information * Value is truncated; see the Detailed Immunizations Health Summary Component[DIM] for complete text Active Outpatient Medications (including Supplies): Active Outpatient Medications Status 1) MONTELUKAST NA 10MG TAB TAKE ONE TABLET BY MOUTH AT ACTIVE BEDTIME FOR ASTHMA 2) PREDNISONE 20MG TAB TAKE TWO TABLETS BY MOUTH DAILY ACTIVE FOR LUNGS Active Non-VA Medications Status 1) Non-VA 14 MUSHROOM COMPLEX CAP/TAB MOUTH ACTIVE 2) Non-VA ACETAMINOPHEN 325MG TAB 650MG MOUTH DAILY ACTIVE NEEDED 3) Non-VA ALBUTEROL 3/IPRATROP 0.5MG/3ML INHL 3ML 1 AMP ACTIVE (3ML) NEBULIZER THREE TIMES A DAY 4) Non-VA ASPIRIN 81MG EC TAB 81MG MOUTH DAILY ACTIVE 5) Non-VA ATORVASTATIN CALCIUM TAB 40MG 40MG MOUTH DAILY ACTIVE 6) Non-VA DULOXETINE HCL 60MG EC CAP 60MG MOUTH DAILY ACTIVE 7) Non-VA EZETIMIBE 10MG TAB 10MG MOUTH EVERY EVENING ACTIVE 8) Non-VA FLUOXETINE HCL 20MG CAP 60MG MOUTH DAILY ACTIVE 9) Non-VA FLUTICASONE PROP 50MCG 120D NASAL INHL 2 ACTIVE SPRAYS EACH NOSTRIL DAILY 10) Non-VA GABAPENTIN 400MG CAP 1200MG MOUTH THREE TIMES ACTIVE A DAY 11) Non-VA INSULIN CONC REG 500 UNT/ML*KWIKPEN* INJ 40 ACTIVE UNITS UNDER THE SKIN EVERY MORNING AND 30 UNITS UNDER THE SKIN 12) Non-VA LIDOCAINE 5% PATCH SKIN ACTIVE 13) Non-VA LOPERAMIDE SUSP,ORAL MOUTH NEEDED ACTIVE 14) Non-VA LORATADINE 10MG TAB 10MG MOUTH DAILY ACTIVE 15) Non-VA MULTIVITAMIN/MINERALS THERAPEUT CAP/TAB 1 ACTIVE CAP(S)/TAB MOUTH DAILY 16) Non-VA SEMAGLUTIDE(WT LOSS) INJ,SOLN UNDER THE SKIN ACTIVE 17) Non-VA TICAGRELOR 90MG TAB 90MG MOUTH TWICE A DAY ACTIVE 19 Total Medications Allergies: NONSTEROIDAL ANTI-INFLAMMATORY, BACTRIM, LISINOPRIL, PRAVASTATIN Social and Family History is unchanged from prior documentation. ROS: ==== A comprehensive 14 point review of systems was negative and non- contributory except as noted in HPI. Examination: Pleasant man in no apparent distress at rest. VITALS: Weight:327 lbs T: 98 F HR:76 /min RR: 15/min BP:119/79 mmHg sPO2:95 % on room air at rest. HEENT: No conjunctival pallor or scleral icterus. Oropharynx is normal, without thrush, ulcers or exudate. Neck:Supple. Trachea is in midline and there is no stridor. There is no thyromegaly. Lungs: Both lung flaherty are normally resonant to percussion. There is fair air entry bilaterally with normal vesicular breath sounds. Heart: Normal S1 and S2. There is no gallop, rub or murmur. Abdomen: soft and non-tender. There is no organomegaly or ascites. Lymphatics: There is no cervical or supraclavicular adenopathy. Musculoskeletal/joints: No arthritis. Extremities: no pitting edema. There is no clubbing or cyanosis. Nervous system: Alert and oriented. There is no gross motor deficit. Psych: Normal mood and affect. Diagnostic Evaluation: PFTs: 05/2022- no obstruction, no restriction, normal DLCO 02/2023 FEV1 2.05 FVC 2.79 ratio 74% TLC 6.21 DLCO 27 Impaired ratio noel with no restriction based on TLC however reduced VC and ERV suggestive of obesity, no PILING SETTER 01/[address] Chest insp/exp/prone faint bibasalar ground glass, similar to prior, no honeycombing, reticulation, no bronchiectasis. Chest CT scan from 02/2021 was visualized personally and radiology report reviewed -No honeycombing. Mild reticulation involving the bibasilar region concerning for mild interstitial lung disease vs atelectasis. 2020 IgE 104, Eos 300, stronglyoides IgG negative, aspergillus IgE unremarkable. Echo 01/2023 EF 55% with diastolic dysfunction, normal RV function, difficult study due to obesity 09/08/23 FeNO 32 09/2023 IgE 147, Abs Eos 470, BNP 24, sputum culture MURF Assessment: 1: Severe persistent asthma,Currently on high dose mometasone 400 mcg BID, stiolto, flonase and cetirizine. He has a long standing history of asthma, although no PILING SETTER, clinical history is consistent. PFTs reviewed which did not show any evidence of obstruction or reversibility. - Continue triple therapy, re-order mometasone and stiolti, patient was not taking it regularly at home. Will re-evalute for biologics after compliance. -will also give him steroid course in case he does develop wheezing/exacerbation. 2: Chronic Hypoxic Respiratory Failure, on 2 L at night, resolved. Patient did not desaturate during walk test today. 3:Dyspnea. This appears to be multifactorial but major contributing factor is possibly morbid obesity with SARAI and deconditioning, and his recent HRCT was unchanged with no ILD. His asthma may be contributing but will need to obtain additional information - Recommend weight loss, he has already lost 17 lbs and feels that has improved his breathing. - counseled on CPAP compliance and trying his new CPAP mask - echo was only significant for diastolic dysfunction, DLCO is normal/high PH less likely, however no bubble performed, will repeat echo with bubble study. - repeat multi-ox today for oxygen requirements showed no desaturations. - refer to sleep again for eval 3: AR - Continue high dose flonase nasal spray. -add montelukast tab 4: Morbidly obese with severe SARAI suspect he could have underlying OHS as well, do not have a daytime ABG, will need to confirm, he would like to defer this currently. - Counseled on weight loss 5: GERD - Continue protonix 40 mg daily - Elevate head end of bed Chart Check: RTC: 3-4 mo I spent 60 minutes, reviewing history, clinical information, pulmonary function test, relevant labs and diagnostic test results in EHR, personally visualizing relevant radiographic examinations of chest, ordering medications, coordinating care with other providers and counseling the patient regarding the diagnosis and treatment plan. /tess/ LUCRECIA HU Signed: 04/19/2024 11:37 /tess/ HERMAN MONTOYA Pulmonary / Critical Care Cosigned: 04/19/2024 12:16 04/19/2024 ADDENDUM STATUS: COMPLETED I have discussed Mr. Allen's care with Dr. Hu (Hr Recruiter) in the clinic today. Details of history were reviewed and are as noted. This note complements the fellow's note, level of billing reflects both. All relevant investigational data including labs and PFTs were reviewed and all relevant radiographic data (CXRs / CT scans) were visualized personally. I agree with details of assessment and plan as noted above. /es/ HERMAN MONTOYA Pulmonary / Critical Care Signed: 04/19/2024 12:18 04/26/2024 ADDENDUM STATUS: COMPLETED Meds/treatment plan discussed w/ during appt. per M.D. & voiced understanding of any changes in meds/treatment plan. [place] dismissed from clinic by provider upon completion of visit. Appt. to be scheduled & appt. letter mailed to per MD order indicating modality of appt. (face to face/VVC/CVT/telephone). If provider not available or requires overbook,alert Legal Writing Professor & Pulmonary Provider for overbook approval. Future test results auto alerted to M.D. once completed for M.D. to review & notify of results. See M.D. note & M.D. orders for further information. -will repeat echo with bubble study. -repeat multi-ox today for oxygen requirements showed no desaturations. -refer to sleep again for eval & CPAP consult. -Morbidly obese with severe SARAI, suspect he could have underlying OHS as well, do not have a daytime ABG, will need to confirm, he would like to defer this currently. -VBG RTC: 3-4 mo /es/ Lilliam Pop RN Pulmonary Legal Writing Professor Signed: 04/26/2024 11:41 LUCRECIA HU-CDD [facility] Apr 19, 2024 10:42 AM NURSING OUTPATIENT NOTE: LOCAL TITLE: [facility] MEDICINE CLINIC INTAKE NOTE STANDARD TITLE: NURSING OUTPATIENT NOTE DATE OF NOTE: APR 19, 2024@10:42 ENTRY DATE: APR 19, 2024@10:42:50 AUTHOR: TYE ALLEN EXP COSIGNER: URGENCY: STATUS: COMPLETED Reason for visit/chief complaint: B/P: 131/82 (12/29/2023 13:33) P: 91 (12/29/2023 13:33) R: 14 (11/23/2022 14:32) T: 97.2 F [36.2 C] (12/29/2023 13:33) HT: 70 in [177.8 cm] (12/29/2023 13:33) WT: 322 lb [146.06 kg] (12/29/2023 13:33) Are you having any pain or recurrent pain in the last several weeks/months? No Location: Duration: Characteristics: Pain education material offered to patient (for pain > 3) No Risk factors history: Hypertension No BP Rechecked No Comments: Patient notified saw filer available upon request for any examinations/procedures. The patient was given a list of his/her medications, instructed to review and discuss any changes or problems with their provider. Patient advised to carry a list of current medications and any allergies with them in the event of emergency situations. Allergies: local and remote NONSTEROIDAL ANTI-INFLAMMATORY, BACTRIM, LISINOPRIL, PRAVASTATIN No Remote Allergy/ADR Data available for this patient Medication Reconciliation ACTIVE OUTPATIENT MEDICATIONS LOCAL/REMOTE MONTELUKAST NA 10MG TAB Directions: TAKE ONE TABLET BY MOUTH AT BEDTIME FOR ASTHMA Quantity: 90 for 90 days Issued: 03/30/24 Filled: 03/30/24 Expires: 03/31/25 Refills: 3 Status: ACTIVE PREDNISONE 20MG TAB Directions: TAKE TWO TABLETS BY MOUTH DAILY FOR LUNGS Quantity: 20 for 10 days Issued: 09/08/23 Filled: 09/08/23 Expires: 09/08/24 Refills: 1 Status: ACTIVE No remote medications found. PENDING OUTPATIENT MEDICATONS (LOCAL/REMOTE): MOMETASONE 200MCG/ACTUAT 120D ORAL INHL Directions: INHALE 2 PUFFS BY MOUTH TWICE A DAY -RINSE MOUTH AND SPIT AFTER EACH USE Quantity: 3 Special: INHALE 2 PUFFS INHL BID Status: PENDING OLODATEROL/TIOTROP 2.5MCG/ACTUAT 60D INH Directions: INHALE 2 PUFFS BY MOUTH DAILY Quantity: 3 Special: INHALE 2 PUFFS PO DAILY Status: PENDING No remote medications found. ACTIVE [...] Status: ACTIVE OUTPATIENT MEDICATIONS (LOCAL)WITHIN 90 DAYS: ALBUTEROL 90MCG (CFC-F) 200D ORAL INHL Directions: INHALE 2 PUFFS BY MOUTH FOUR TIMES A DAY NEEDED FOR BREATHING Quantity: 1 for 30 days Issued: 03/23/23 Filled: 09/27/23 Expires: 03/23/24 Refills: 3 Status: KETOCONAZOLE 2% SHAMPOO Directions: SHAMPOO WITH SMALL AMOUNT AFFECTED AREA TWICE PER WEEK FOR DANDRUFF Quantity: 120 for 30 days Issued: 12/29/23 Filled: 12/30/23 Expires: 01/28/24 Refills: 0 Status: DISCONTINUED OUTPATIENT MEDICATIONS (LOCAL) WITHIN 90 DAYS: MONTELUKAST NA 10MG TAB Directions: TAKE ONE TABLET BY MOUTH AT BEDTIME FOR ASTHMA Quantity: 90 for 90 days Issued: 04/07/23 Filled: 12/23/23 Expires: 04/07/24 Refills: 0 Status: DISCONTINUED CLINIC MEDICATIONS (LOCAL): No local medications found. Reviewed current medications with patient/signficant other, patient/significant other reports patient taking ALL VA, Non VA & OTC medications as listed on [facility] medication tab outpatient section. Yes *Printed copy of medication list provided to patient and reviewed. Yes *Explained to the patient the importance of keeping providers updated on medication changes and to carrying an updated list of medication at all times in case of an emergency situation. Yes /es/ TYE ALLEN License Practial Nurse Signed: 04/19/2024 10:43 TYE ALLEN-JAVIERD [facility]
--- OUTSIDE RECORDS SUMMARY | 2024-09-27 22:34 | XMS_ITS ---
Author Name [facility] [place] [facility] [place] Address [address] [place] [address] Care Team Providers Care Suggestion Clerk Name Role Phone VERÓNICA LEAHY Primary Care [...] PART A Feb 18, 2019 PART A [id number] GAEL ALLEN PATIENT MEDICARE (WNR) MEDICARE (M) PART B Feb 18, 2019 PART B [id number] GAEL ALLEN PATIENT MEDICARE (WNR) MEDICARE (M) PART B Feb 18, 2019 PART B [id number] GAEL ALLEN PATIENT MEDICARE (WNR) MEDICARE (M) PART B Feb 18, 2019 PART B [id number] GAEL ALLEN PATIENT MEDICARE (WNR) MEDICARE (M) PART A Jul 21, 1993 PART A [id number] GAEL ALLEN PATIENT MEDICARE (WNR) MEDICARE (M) PART A Jul 21, 1993 PART A [id number] GAEL ALLEN PATIENT MEDICARE (WNR) MEDICARE (M) PART A Jul 21, 1993 PART A [id number] [phone] GAEL ALLEN PATIENT Selected Encounter This section includes the information on record at [place] for the Encounter. Date/Time Encounter Type Encounter Description Reason Provider Source Aug 09, 2024 09:30 AM SYNCH AUDIO-ONLY EST MOD 30 TELEPHONE/MEDICIN E ICD-10-CM J45.40 Moderate persistent asthma, uncomplicated EDISON CHEN IHAugie Encounter Template Text not used by [place] Assessments - Encounter Diagnoses This section includes the primary and secondary diagnoses documented for the Encounter. Date/Time Primary/Secondary Diagnosis Diagnosis Name Provider Source Aug 09, 2024 09:30 AM PRIMARY Moderate persistent asthma, uncomplicated [facility]ON [place] Aug 09, 2024 09:30 AM SECONDARY Allergic rhinitis, unspecified DEON HU [place] Aug 09, 2024 09:30 AM SECONDARY Chronic obstructive pulmonary disease, unspecified DEON HU NA C [place] Aug 09, 2024 09:30 AM SECONDARY Obstructive sleep apnea (adult) (pediatric) DEON HU[facility] Plan of Treatment: Future Appointments (+ 6 months) and Future Tests (+/- 45 days) The Plan of Treatment section includes future care activities for the patient from all [place] treatmentfacilities. This section includes future appointments and future orders which are active, pending or scheduled. Future Appointments This section includes appointments that were scheduled to occur 6 months from the date of the Encounter, up to a maximum of 20 appointments. The data comes from all [place] treatment facilities. Appointment Date/Time Appointment Type Appointme nt Facility Name Sep 06, 2024 02:00 PM AMBULATORY - MEDICINE [facility] Sep 07, 2024 08:30 AM AMBULATORY - MEDICINE [facility] October 29, 2024 02:00 PM [facility]ORY [facility]UR[facility]Y [facility] Active, Pending, and Scheduled Orders This section includes a listing of several types of active, pending, and scheduled orders, including clinic medications orders, diagnostic test orders, procedure orders and consult orders; where the start date of the order is 45 days before the date of the Encounter or 45 days after the date of theEncounter. The data comes from all [place] treatment facilities. Test Date/Time Test Type Test Details Facility Name Aug 31, 2024 10:11 AM Consult Order MED CPAP O UTPATIENT Cons [facility] Social History: Smoking Status (Most current) and Tobacco Use (All prior to encounter date) This section includes the most current, and the historical, smoking and tobacco- related health factors from the [place] facility where the Encounter took place. Current Smoking Status This section includes the most current smoking, or tobacco-related health factor, from the [place] facility where the Encounter took place. Date/Time Current Smoking Status Comment Alondra moss Dec 25, 1998 09:22 AM NON-TOBACCO USER [facility] Tobacco Use History This section includes a history of the smoking, or tobacco-related health factors, that were collected on or before the date of the Encounter. The data comes from the [place] facility where the Encounter took place. Date/Time Smoking Status/Tobacco Use Comment F ghada Jan 17, 1998 06:10 PM NON-TOBACCO USER PSYCH[facility]RIC Encounter Notes: All associated encounter notes This section contains the clinical notes associated to the Encounter. Date/Time Encounter Note(s) Provider Source Aug 09, 2024 11:09 AM PULMONARY NOTE: LOCAL TITLE: PULMONARY CLINIC PHYSICIAN NOTE STANDARD TITLE: PULMONARY NOTE DATE OF NOTE: AUG 09, 2024@11:09 ENTRY DATE: AUG 09, 2024@11:09:31 AUTHOR: LUCRECIA HU COSIGNER: EDISON CHEN URGENCY: STATUS: COMPLETED PULMONARY CLINIC PHYSICIAN NOTE Has ADDENDA Mr. Allen's care was discussed via telephone care in lieu of face to face appointment today. Correct identity was confirmed using full name and social security number and a verbal consent was obtained from the patient for conducting telephone care. HPI: Mr Allen is a 69 yo man with PMH significant for asthma that has been diagnosed 30 years ago. He has been on high dose mometasone and stiolto. He is using triple therapy and is compliant. He has had ongoing dyspnea for the past year since his ID. Of note, in 05/2022 he had a [...] move around in the house without oxygen. Last visit, he did not desaturate on multi-ox. Currently he states he feels his dyspnea is stable and he has not had any exacerbations or ER visits. He has decreased his rescue inhaler use and only used it twice at night over the past month. He was previously not using his inhalers regularly. He has done home based pulm rehab. Past 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: Active problems - Computerized [...] obesity 14. Gastroesophageal reflux disease (SNOMED CT [id number]) 15. Severe persistent allergic asthma uncontrolled (SNOMED CT [id number]) 16. Depressive disorder IM - Immunizations ADMINISTERED Immunization Series Date Facility Reaction Info COVID-19 ([facility]), VECTOR-NR, R* 1 09/20/2020 [facility]* COVID-19 ([facility]), MRNA, LNP-S, * 1 04/21/2022 [facility]* COVID-19 ([facility]), MRNA, LNP-S, * 2 05/29/2021 [facility]* COVID-19 ([facility]), MRNA, LNP-S, * 1 01/26/2022 [place] FLU,3 YRS (HISTORICAL) 06/12/2003 [place]* INFLUENZA A & B (HISTORICAL) [facility]* INFLUENZA A & B (HISTORICAL) [facility] INFLUENZA, HIGH-DOSE, QUADRIVALE* 2 04/07/2023 [place] [facility] INFLUEN[place], SPLIT VIRUS, QUADRIVA* 1 04/23/2022 [place] [facility] INFLUEN[place], UNSPECIFIED FORMULATI* [facility]* INFLUENZA, UNSPECIFIED FORMULATI* [facility]* INFLUENZA, UNSPECIFIED FORMULATI* [facility]* INFLUENZA, UNSPECIFIED FORMULATI* 04/22/1997 [place]* INFLUENZA, UNSPECIFIED FORMULATI* 04/25/1996 [facility]* PNEUMOCOCCAL CONJUGATE PCV20, PO* 08/18/2021 No Site PNEUMOCOCCAL, UNSPECIFIED FORMUL* 11/18/1993 [place]* <C> TD(ADULT) UNSPECIFIED FORMULATION 02/27/2007 [facility]* TD(ADULT) UNSPECIFIED FORMULATION 11/18/1996 [place]* <C> ZOSTER RECOMBINANT 2 03/29/2019 [facility]* ZOSTER RECOMBINANT 1 01/21/2019 [facility]* CONTRAINDICATED No data available REFUSED ======= Immunization Date Facility Info COVID-19 ([facility]), MRNA, LNP-S, * 12/29/2023 [facility]* <I> <C> See the Detailed Immunizations Health Summary Component[DIM] for Comments <I> See the Detailed Immunizations Health Summary Component[DIM] for Additional Information * Value is truncated; see the Detailed Immunizations Health Summary Component[DIM] for complete text Active Outpatient Medications (including Supplies): Active Outpatient Medications Status = 1) MOMETASONE 200MCG/ACTUAT 120D ORAL INHL INHALE 2 PUFFS BY ACTIVE MOUTH TWICE A DAY -RINSE MOUTH AND SPIT AFTER EACH USE Indication: FOR ASTHMA 2) MONTELUKAST NA 10MG TAB TAKE ONE TABLET BY MOUTH AT BEDTIME ACTIVE Indication: FOR ASTHMA 3) OLODATEROL/TIOTROP 2.5MCG/ACTUAT 60D INH INHALE 2 PUFFS BY ACTIVE MOUTH DAILY Indication: FOR BREATHING Active Non-VA Medications Status = 1) Non-VA 14 MUSHROOM COMPLEX CAP/TAB MOUTH ACTIVE 2) Non-VA ACETAMINOPHEN 325MG TAB 650MG MOUTH DAILY NEEDED ACTIVE 3) Non-VA ALBUTEROL 3/IPRATROP 0.5MG/3ML INHL 3ML 1 AMP (3ML) ACTIVE NEBULIZER THREE TIMES A DAY 4) Non-VA [...] FLUTICASONE PROP 50MCG 120D NASAL INHL 2 SPRAYS EACH ACTIVE NOSTRIL DAILY 10) Non-VA GABAPENTIN 400MG CAP 1200MG MOUTH THREE TIMES A DAY ACTIVE 11) Non-VA INSULIN CONC REG 500 UNT/ML*KWIKPEN* INJ 40 UNITS ACTIVE UNDER THE SKIN EVERY MORNING AND 30 UNITS UNDER THE SKIN 12) Non-VA LIDOCAINE 5% PATCH SKIN ACTIVE 13) Non-VA LOPERAMIDE SUSP,ORAL MOUTH NEEDED ACTIVE 14) Non-VA LORATADINE 10MG TAB 10MG MOUTH DAILY ACTIVE 15) Non-VA MULTIVITAMIN/MINERALS THERAPEUT CAP/TAB 1 CAP(S)/TAB ACTIVE MOUTH DAILY 16) Non-VA SEMAGLUTIDE(WT LOSS) INJ,SOLN UNDER THE SKIN ACTIVE 17) Non-VA TICAGRELOR 90MG TAB 90MG MOUTH TWICE A DAY ACTIVE 20 Total Medications Allergies: NONSTEROIDAL ANTI-INFLAMMATORY, BACTRIM, LISINOPRIL, PRAVASTATIN Social and Family History is unchanged from prior documentation. ROS: ==== A comprehensive 14 point review of systems was negative and non-contributory except as noted in HPI. Examination: Patient did not appear to be in distress. Diagnostic Evaluation: PFTs: 05/2022- no obstruction, no restriction, normal DLCO 02/2023 FEV1 2.05 FVC 2.79 ratio 74% TLC 6.21 DLCO 27 Impaired ratio noel with no restriction based on TLC however reduced VC and ERV suggestive of obesity, no MANAGER AGRICULTURE 01/[address] Chest insp/exp/prone faint bibasalar [...] Eos 470, BNP 24, sputum culture MURF 06/2024 TTE 1. Intravenous injection of agitated saline demonstrates evidence of PFO. 2. Left ventricular systolic function is borderline reduced. The visually estimated LVEF is '50-55%'. The E/e' ratio is most consistent with 'an elevated' left atrial pressure. 3. The right ventricle is normal size. The right ventricular systolic function is normal. 4. No significant valvular stenosis or regurgitation 5. There is no pericardial effusion. Assessment: 1: Severe persistent asthma,Currently on high dose mometasone 200 mcg 2 puffs BID, stiolto, flonase and cetirizine. He has a long standing history of asthma, although no MANAGER AGRICULTURE, clinical history is consistent. PFTs reviewed which did not show any evidence of obstruction or reversibility. - Continue triple therapy,patient was not taking it regularly at home. Will re-evalute for biologics after compliance. -he has not had any exacerbations and has decreased his rescue use after taking his inhalers regularly. -he has a steroid course in case he does develop worsening wheezing/exacerbation. 2: Chronic Hypoxic Respiratory Failure, on 2 L at night, resolved. Patient did not desaturate during walk test 03/2024. 3:Dyspnea. This appears to be multifactorial but major contributing factor is possibly morbid obesity with SARAI and deconditioning, and his recent HRCT was unchanged with no ILD. His asthma may be contributing but will need to obtain additional information - continue weight loss, he has already lost 17 lbs and feels that has improved his breathing. - counseled on CPAP compliance, he has an appointment next week for another mask. - echo was only significant for diastolic dysfunction, DLCO is normal/high PH less likely. -he has completed pulm rehab 3: [place] - Continue high dose flonase [...] head end of bed Chart Check: RTC: 6 mo (I spent 50 minutes providing telephone care, including review of medical records.) /tess/ LUCRECIA HU Signed: 08/09/2024 11:30 /tess/ Norma LAWSON. STAFF PHYSICIAN Cosigned: 08/09/2024 12:10 08/09/2024 ADDENDUM STATUS: COMPLETED I have discussed Mr. Allen's care with Dr. Hu (teaching fellow) in the clinic today. This note complements her note, level of billing reflects both. Details of history were reviewed and are as noted. All relevant investigational data including labs and PFTs were reviewed and all relevant radiographic data (CXRs / CT scans) were visualized personally. Agree with details of assessment and plan as noted above. Edison Chen MD, [facility]. (he / him / his) Staff Physician, Pulmonary and Critical Care Medicine [facility], [facility] /tess/ Nicholas LAWSONS. STAFF PHYSICIAN Signed: 08/09/2024 12:11 08/16/2024 ADDENDUM STATUS: COMPLETED Meds/treatment/treatment plan discussed w/ during appt. per M.Linda & voiced understanding of any changes in meds/treatment plan. dismissed from clinic by provider upon completion of visit. Appt. to be scheduled & appt. letter mailed to per MD order indicating modality of appt. (face to face/VVC/CVT/telephone). If provider not available or requires overbook,alert [facility] Pulmonary Provider for overbook approval. See M.D. note & M.D. orders for further information. RTC: 6 mo /es/ Lilliam Pop RN Pulmonary [facility] Signed: 08/16/2024 16:37 LUCRECIA HU-[facility]
--- OUTSIDE RECORDS SUMMARY | 2024-09-27 22:34 | XMS_ITS | Data Portability ---
Author Organization [facility], [facility] [place] [facility] Address [address] [facility] [address] [address] [place] [address] Care Team Providers Care Counseling Aide Name Role Phone JERRY ROSENTHAL Technician Support [employer] MIQUEL STOLL Route Rider MADELINE ALVAREZ II Primary Care Provider [phone] Assessment Encounter Date Assessment Date Assessment LastModified by Organization Details LastModified Time 03/08/2024 03/08/2024 f/up yearly FSE Not available 03/07/2024 07:31:30 Plan of Treatment Reminders Order Date Submit Date Provider Last Modified By Organization Details Last Modified Time Details Appointments RECHECK 2024 01:30P M JERRY ROSENTHAL BOX OFFICE CLERK Not available Not available Not available DERMATOL OGY VISIT 2024 02:15P M ELIZABETH CERNA DO Not available Not available Not available LEVEL 2 2024 11:00A Iwona STOLL MD Not available Not available Not available Lab microalb umin/cre atinine, mass ratio, urine [address] [facility], [address] [place] [address], [id number], 08/23/2024 12:12:55 lipid panel, serum [address] [facility], [address] [place] [address], [address], 08/23/2024 12:04:30 glucose, fingerst ick, blood 2024 025 [email or web address] 8 [facility], [address] [place] [address], [address], 08/23/2024 10:51:17 hemoglob in A1C, fingerst ick 2024 025 [email or web address] 8 [facility], [address] [place] [address], [address], 08/23/2024 10:51:17 CMP, serum or plasma [address] [facility], [address] [place] [address], [address], 08/23/2024 12:04:28 TSH, serum or plasma [address] [facility], [address] [place] [address], [address], 08/23/2024 12:09:29 microalb umin/cre atinine, mass ratio, urine [address] [facility], [address] [place] [address], [address], 11/30/2023 18:04:30 glucose, fingerst ick, blood 2023 024 [email or web address] 8 [facility], [address] [place] [address], [address], 11/30/2023 15:43:26 hemoglob in A1C, fingerst ick 2023 024 [email or web address] 8 [facility], [address] [place] [address], [address], 11/30/2023 15:43:27 Referral None recorded . Procedures None recorded . Surgeries None recorded . Imaging None recorded . Medication Orders Humulin R U-500 (Conc) Insulin Kwikpen 500 unit/mL (3 mL) subcutan eous 2024 025 [facility], [address] [place] [address] Maira [place]le [place], [id number], 08/23/2024 10:53:12 Ozempic 2 mg/dose (8 mg/3 mL) subcutan eous pen injector 2024 025 8 [facility], [address] [place] [address] Maira [place], [id number], 08/23/2024 12:15:52 Humulin R U-500 (Conc) Insulin Kwikpen 500 unit/mL (3 mL) subcutan eous 2023 024 [facility], [address] [place] [address] Maira [place], [id number], 11/30/2023 15:46:09 Ozempic 2 mg/dose (8 mg/3 mL) subcutan eous pen injector 2023 024 [facility], [address] [place] [address] Maira Del Valle [place], [id number], 11/30/2023 15:46:06 Patient TargetsNo targets recorded. Patient Instructions Encounter Date Encounter Id Patient Instructions Last Modified By Organization Details Last Modified Time 11/30/2023 [id number] [email or web address] Not available 04/2024 11:03:42 03/08/2024 [id number] If any lesions change, or if any other new or symptomatic lesions occur, patient understands to return to the clinic for further evaluation Discussed sun precautions; SPF 30+ [email or web address] Not available 03/07/2024 07:32:15 06/18/2024 [id number] 1. Miquel repor ts that he has been hoarse for the past several months. He has been on a regimen of Pantoprazole right before bed for his acid reflux. Miquel takes Claritin daily. Miquel's exam today included fiberoptic laryngoscopy. He has no oropharyngeal masses. His laryngeal exam shows no nodules or polyps and very little arytenoid inflammation. 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 I would recommend conservative treatment at this point including salt water gargles and throat lozenges and avoiding anything that causes excessive dryness in the throat. He will continue his reflux medications although I did suggest that he change taking the pantoprazole 1 hour before his evening meal as opposed to at bedtime. He could at bedtime use antacids such as Tums or Maalox. 2. Advised to take Pantoprazole and hour before evening meal. Consider use of OTC night time antacid. 3. Exercise vocal hygiene. Avoid caffeine, hydrate often, and use sialogogues. Gargle warm salt water prn. 4. Avoid oral antihistamines and diuretics due to potential for pharyngeal dryness. 5. Advised to sleep with head elevated. GERD precautions reviewed with pt. 6 Follow up prn. [email or web address] Not available 06/18/2024 17:36:41 08/23/2024 [id number] [email or web address] Not available 13:19:32 Reason for Referral None Reported. Results Created Date Observation Date Name Description Value Unit Range Abnormal Flag Note LastModifiedBy Organization Detail LastModifiedTime 11/30/19 24 11/30/2023 MICRO ALBUM IN/CR EAT RATIO microalbumin , random 192 mg/L 0-19 high Not Available [facility] [address] [place] [address], [address], 11/30/2023 18:04:30 11/30/19 24 11/30/2023 MICRO ALBUM IN/CR EAT RATIO creatinine,u r,random 195 mg/dL normal NO RUBEN L RANGE ESTAB LISHE D FOR RANDO M URINE . Not Available [facility] [place], [address], 11/30/2023 18:04:30 11/30/19 24 11/30/2023 MICRO ALBUM IN/CR EAT RATIO MA/creatinin e ratio 98 mcg/m g_cre at 0-29 high Not Available [facility] [address] [place] [address], [address], 11/30/2023 18:04:30 11/30/19 24 11/30/2023 hemog lobin A1C, arnaldo rstic k hemoglobin A1C % 6.9 % 4.0 - 5.6 Not Available [facility] [place] [address] [place] [address], [address], 11/29/2023 11:03:45 11/30/19 24 11/30/2023 gluco se, arnaldo rstic k, blood glucose, fingerstick 131 mg/dL 70 - 100 Not Available [facility] [address] [place], [address], 11/29/2023 11:03:45 08/24/19 25 08/23/2024 COMP. METAB OLIC PANEL glucose 179 mg/dL 74-100 high Not Available [facility] [address] [place] [address], [address], 08/23/2024 12:04:28 08/24/19 25 08/23/2024 COMP. METAB OLIC PANEL blood urea nitrogen 26 mg/dL 6-20 high Not Available [facility] [address] [place] [address], [address], 08/23/2024 12:04:28 08/24/19 25 08/23/2024 COMP. METAB OLIC PANEL creatinine 1.04 mg/dL 0.70-1 .28 normal Not Available [facility] [address] [place] [address], [address], 08/23/2024 12:04:28 08/24/19 25 08/23/2024 COMP. METAB OLIC PANEL BUN/creatini ne ratio 25 (calc ) 10-20 high Not Available [facility] [address] [place] [address], [address], 08/23/2024 12:04:28 08/24/19 25 08/23/2024 COMP. METAB OLIC PANEL sodium 142 mmol/ L 136-14 5 normal Not Available [facility] [address] [place] [address], [address], 08/23/2024 12:04:28 08/24/19 25 08/23/2024 COMP. METAB OLIC PANEL potassium 4.4 mmol/ L 3.4-5. 0 normal Not Available [facility] [address] [place] [address], [address], 08/23/2024 12:04:28 08/24/19 25 08/23/2024 COMP. METAB OLIC PANEL chloride 103 mmol/ L 98-107 normal Not Available [facility] [address] [place] [address], [address], 08/23/2024 12:04:28 08/24/19 25 08/23/2024 COMP. METAB OLIC PANEL carbon dioxide 25 mmol/ L 22-31 normal Not Available [facility] [address] [place] [address], [address], 08/23/2024 12:04:28 08/24/19 25 08/23/2024 COMP. METAB OLIC PANEL anion gap 14 (calc ) 7-25 normal Not Available [facility] [address] [place] [address], [address], 08/23/2024 12:04:28 08/24/19 25 08/23/2024 COMP. METAB OLIC PANEL calcium 9.3 mg/dL 8.6-10 .2 normal Not Available [facility] [address] [place] [address], [address], 08/23/2024 12:04:28 08/24/19 25 08/23/2024 COMP. METAB OLIC PANEL total protein 7.1 g/dL 6.4-8. 3 normal Not Available [facility] [address] [place] [address], [address], 08/23/2024 12:04:28 08/24/19 25 08/23/2024 COMP. METAB OLIC PANEL albumin 4.2 g/dL 3.5-5. 2 normal Not Available [facility] [address] [place] [address], [address], 08/23/2024 12:04:28 08/24/19 25 08/23/2024 COMP. METAB OLIC PANEL globulin 2.9 1.5-4. 5 normal Not Available [facility] [address] [place] [address], [address], 08/23/2024 12:04:28 08/24/19 25 08/23/2024 COMP. METAB OLIC PANEL albumin/glob ulin ratio 1.4 (calc ) 1.1-2. 5 normal Not Available [facility] [address] [place] [address], [address], 08/23/2024 12:04:28 08/24/19 25 08/23/2024 COMP. METAB OLIC PANEL bilirubin, total 0.6 mg/dL 0.1-1. 2 normal Not Available [facility] [address] [place] [address], [address], 08/23/2024 12:04:28 08/24/19 25 08/23/2024 COMP. METAB OLIC PANEL alkaline phosphatase 98 U/L 40-129 normal Not Available [facility] [address] [place] [address], [address], 08/23/2024 12:04:28 08/24/19 25 08/23/2024 COMP. METAB OLIC PANEL AST 14 U/L 0-40 normal Not Available [facility] [address] [place] [address], [address], 08/23/2024 12:04:28 08/24/19 25 08/23/2024 COMP. METAB OLIC PANEL ALT 15 U/L 0-41 normal Not Available [facility] [address] [place] [address], [address], 08/23/2024 12:04:28 03/06/08/23/2024 COMP. METAB OLIC PANEL GFR 77 >= 60 normal NOT E New calcu latio n for GFR (CKD- EPI 2020) is formu lated witho ut race adjus tment facto rs at the recom menda tion of the Veronica Mcfarlane y Found atjulius and Faith marlin Rutledge ty of Nephr ology . This calcu latio n has not been valid ated in pregn ant women . For pedia tric patie nts refer to https ://hugo w.enedina hollyy.o rg/pr ofess ional s/KDO QI/gf r_cal culat orPed Not Available [facility] [address] [place] [address], [address], 08/23/2024 12:04:28 08/24/19 25 08/23/2024 LIPID PROFI LE HDL cholesterol 48 mg/dL 40-242 normal Not Available [facility] [address] [place] [address], [address], 08/23/2024 12:04:30 08/24/19 25 08/23/2024 LIPID PROFI LE triglyceride s 74 mg/dL 0-149 normal TRIGL YCERI DE RANGE S RUBEN L: < 150 BORDE RLINE HIGH: 150 - 199 HIGH: 200 - 499 VERY HIGH: > OR = 500 Not Available [facility] [address] [place] [address], [address], 08/23/2024 12:04:30 08/24/19 25 08/23/2024 LIPID PROFI LE cholesterol 112 mg/dL 0-199 normal GUIDO STERO L (TOTA L) RANGE S MARISEL ABLE: < 200 BORDE RLINE : 200 - 239 HIGHE R RISK: > 239 Not Available [facility] [address] [place], [address], 08/23/2024 12:04:30 08/24/19 25 08/23/2024 LIPID PROFI LE LDL cholesterol 49 mg/dL _(ara c) 0-99 normal LDL GUIDO STERO L RANGE S OPTIM AL: < 100 NEAR/ ABOVE OPTIM AL: 100 - 129 BORDE RLINE HIGH: 130 - 159 HIGH: 160 - 189 VERY HIGH: > OR = 190 Not Available [facility] [address] [place] [address], [address], 08/23/2024 12:04:30 08/24/19 25 08/23/2024 TSH TSH 1.130 u[IU] /mL 0.270- 4.200 normal Not Available [facility] [address] [place] [address], [address], 08/23/2024 12:09:29 08/24/19 25 08/23/2024 MICRO ALBUM IN/CR EAT RATIO microalbumin , random 98 mg/L 0-19 high Not Available [facility] [address] [place] [address], [address], 08/23/2024 12:12:55 08/24/19 25 08/23/2024 MICRO ALBUM IN/CR EAT RATIO creatinine,u r,random 167 mg/dL normal NO RUBEN L RANGE ESTAB LISHE D FOR RANDO M URINE . Not Available [facility] [address] [place] [address], [address], 08/23/2024 12:12:55 08/24/19 25 08/23/2024 MICRO ALBUM IN/CR EAT RATIO MA/creatinin e ratio 59 mcg/m g_cre at 0-29 high Not Available [facility] [address] [place] [address], [address], 08/23/2024 12:12:55 08/24/19 25 08/23/2024 hemog lobin A1C, finge rstic k hemoglobin A1C % 6.8 % 4.0 - 5.6 Not Available [facility] [address] [place] [address], [address], 08/10/2024 13:19:34 08/24/19 25 08/23/2024 gluco se, finge rstic k, blood glucose, fingerstick 199 mg/dL 70 - 100 Not Available [facility] [address] [place], [address], 08/10/2024 13:19:34 Result Notes None recorded. Problems Name Problem SNOMED Code Status Onset Date Resolution Date Notes Provider Name and Address Organization Details Recorded Time Idiopath ic osteoart hritis 130368475 Active 2015 From [employer];Pro vider: Celia Monge; atus: Active Not Available [facility] 7 03:40:39 Achilles tendinit is 27795860 Completed 201501/03/2017 From [employer];Pro vider: Magdalena Fuentes;Sta tus: Active MIQUEL HERRMANN MD [address] [place] [address], [address] , [facility] 7 13:46:53 Senile hyperker atosis 149619233 Active 2015 From [employer] Load;Pro vider: Marilin Gonsales; atus: Active Not Available [facility] 7 06:00:03 Neoplast ic disease 44443417 Completed 201501/03/2017 From [employer] Load;Pro vider: Marilin Gonsales;St atus: Active MIQUEL HERRMANN MD [address] [place] [address], [address] , [facility] 7 13:46:51 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 179248853 Active 2015 From [employer];Pro vider: Magdalena Fuentes;Sta tus: Active Not Available [facility] 7 06:21:34 Pain in left foot 71570159544 9107 Completed 201501/03/2017 From [employer];Pro vider: Magdalena Fuentes;Sta tus: Active MIQUEL HERRMANN MD [address] [place] [address], [address] , [facility] 7 13:46:55 Pain in right foot 85029568317 9107 Active 2015 From [employer];Pro vider: Magdalena Fuentes;Sta tus: Active Not Available [facility] 7 06:45:00 Tracheob ronchiti s 26013377 Completed 201501/03/2017 From [employer];Pro vider: Celia Monge;St atus: Active MIQUEL HERRMANN MD [address] [place] [address], [address] , [facility] 7 13:46:47 Congenit al talipes calcaneo valgus 495775125 Active 2015 From [employer] Load;Pro vider: Magdalena Fuentes;Sta tus: Active Not Available [facility] 7 07:05:37 Disorder of capillar ies 46497722 Active 2015 From [employer] Load;Pro vider: Marilin Gonsales;St atus: Active Not Available [facility] 7 07:51:38 Hyperten sive disorder 55048106 Active 2017 MIQUEL HERRMANN MD [address] [place] [address], [address] , [facility] 2 07:59:22 Hyperlip idemia 12061847 Active 2017 MIQUEL HERRMANN MD [address] [place] [address], [address] , [facility] 2 07:59:22 Chronic depressi on 034214207 Active 2017 MIQUEL HERRMANN MD [address] [place] [address], [address] , [facility] 2 07:59:22 Chronic obstruct an pulmonar y disease 20858235 Active 2017 MIQUEL HERRMANN MD [address] [place] [address], [address] , [facility] 2 07:59:22 Diabetic peripher al neuropat hy 651041183 Active 2017 MIQUEL HERRMANN MD [address] [place] [address], [address] , [facility] 2 07:59:22 Venous insuffic iency of leg 383182522 Active 2020 MIQUEL HERRMANN MD [address] [place] [address], [address] , [facility] 1 16:20:44 Multiple complica tions due to type 2 diabetes mellitus Active 2021 JERRY ROSENTHAL, BOX OFFICE CLERK [address] [place] [address], [address] , [facility] 2 12:26:29 Lower urinary tract symptoms due to benign prostati c hypertro phy 64831763723 101 Active 2021 MIQULE HERRMANN MD [address] [place] [address], [address] , [facility] 2 08:02:53 Chronic low back pain 043810364 Active 2021 MIQUEL HERRMANN MD [address] [place] [address], [address] , [facility] 2 08:02:53 Body mass index 40+ - severely obese 365572072 Active 2021 MIQUEL HERRMANN MD [address] [place] [address], [address] , [facility] 2 08:02:[address] segment elevatio n myocardi al infarcti on 69251668468 9104 Active 2021 MIQUEL HERRMANN MD [address] [place] [address], [address] , [facility] 2 07:52:05 Morbid obesity 311784258 Active 2022 MIQUEL HERRMANN MD [address] [place] [address], [address] , [facility] 3 15:15:21 Recurren t major depressi on 47515856 Active 2022 MIQUEL HERRMANN MD [address] [place] [address], [address] , [facility] 3 15:23:59 Problem Notes None recorded. Procedures Surgical History Date Name Laterality Status Provider Name and Address Organization Details Recorded Time 025 Diabetic Foot Exam completed JERRY ROSENTHAL, BOX OFFICE CLERK [address] [place], [address], [facility] 08/23/2024 12:17:37 024 Laryngoscopy Flex completed Fred Ogpao [facility] 06/18/2024 15:35:17 024 Destruction BN Lesions completed ELIZABETH CERNA DO [address] [place], [address], [facility] 03/08/2024 17:02:10 022 TCM completed Shimon [facility] 06/03/2022 07:19:18 022 OCT/Retina completed MIQUEL STOLL MD [address] [place], [address], [facility] 06/07/2022 16:04:02 022 catheterization of left heart completed Shimon [facility] 06/03/2022 07:29:27 022 Destruction BN Lesions completed Damaris Johnson [facility] 08/05/2021 14:43:50 022 Cystoscopy - male completed KARUNA ALDRIDGE MD [facility] [place], [address], [facility] 07/13/2021 13:19:21 021 Post Void Residual; Ultrasound completed Katina Camejo [facility] 05/19/2021 15:49:13 021 OCT/Retina completed MIQUEL STOLL MD [facility] [place], [address], [facility] 03/06/2021 12:14:35 021 repair of shoulder completed Monica Osorio [facility] 02/09/2021 14:40:09 021 Bubbles Echocardiogram completed ISAAK CASTRO MD [address] [place], [address], [facility] 07/21/2020 15:43:23 021 Diffusion Capacity completed SILVESTRE MCLAIN PA-C [address] [place], [address], [facility] 07/10/2020 15:30:41 021 Lung Volumes, Plethysmography completed SILVESTRE MCLAIN PA-C [address] [place], [address], [facility] 07/10/2020 15:31:01 021 Spirometry completed SILVESTRE MCLAIN PA-C [address] [place], [address], [facility] 07/10/2020 15:31:15 020 Biopsy Skin Lesion; Punch completed [facility] 08/20/2019 12:12:34 020 Destruction BN Lesions completed [facility] 08/20/2019 12:12:09 019 Digital Rectal Screening Exam completed MIQUEL HERRMANN MD [address] [place], [address], [facility] 07/13/2018 16:22:10 018 Digital Rectal Screening Exam completed MIQUEL HERRMANN MD [address] [place], [address], [facility] 07/11/2017 16:34:07 017 MNT Initial Visit completed [address] [place], [address], [facility] 01/20/2017 14:21:14 017 Audiogram completed JACLYN WHARTON [address] [place], [address], [facility] 06/30/2016 14:57:39 011 Cervical Spine Surgery completed Brea Leos [facility] 06/08/2016 14:35:47 Cataract Surgery completed Melissa Leos [facility] 06/08/2016 14:35:11 Knee Surgery completed Brea Leos [facility] 06/08/2016 14:37:21 Imaging Results None recorded. Procedure Notes None recorded. Medical Equipment None Reported. Allergies Allergen ID Allergen Name Allergen Category Reaction Reaction Severity Criticality Documentation Date Start Date Code Code System Note Provider Name and Address Organization Details Recorded Time 295170 Non-stero idal anti-infl ammatory agent (product) medicatio n Not available Not available Not available 09/16/2016 32964 005 [facility] 7 10:06:11 702317 Substance with sulfonami de structure and antibacte rial mechanism of action (substanc e) medicatio n Not available Not available Not available 09/16/2016 79165 8003 SNOMED Verito Jack [facility] 7 10:06:23 116130 aspirin medicatio n Not available Not available Not available 09/16/2016 1191 RxNorm Jocelyn Kay [facility] 2 14:56:06 144277 pravastat in medicatio n rash Not available Not available 08/18/2022 36008 RxNorm JERRY ARIADNA, BOX OFFICE CLERK [address] [place], [address], [facility] 3 16:14:52 532455 lisinopri l medicatio n cough Not available Not available 12/08/2023 69004 RxNorm JERRY ARIADNA, BOX OFFICE CLERK [address] [place], [address], [facility] 4 10:43:26 Medications Name Sig Start Date [...] Available Not Available Nasonex 50 mcg/actua tion Scribner Scribner 2 sprays every day by intranas al [...] CAPSULES BY MOUTH ONCE A DAY call [phone] to schedule appt active Not Available Not [...] height Body mass index (BMI) Body weight Heart rate Systolic blood pressure Diastolic blood pressure Provider Name and Address Organization Details Last Updated DateTime 4 175.26 cm 48.4 kg/m2 178624. 3 g 68 /min 126 mm[Hg] 72 mm[Hg] Enid Hernandez [facility] 4 15:11:39 Date Recorded Body height Provider Name an d Address Organization Details Last Updated DateTime 03/08/2024 175.26 cm Jackie Jordyn Bravo [facility] 03/08/2024 11:39:02 Date Recorded Body height Body mass index (BMI) Body weight Body temperature Heart rate Systolic blood pressure Diastolic blood pressure Provider Name and Address Organization Details Last Updated DateTime 4 175.26 cm 48.9 kg/m2 782379. 36 g 98.2 [degF] 90 /min 112 mm[Hg] 75 mm[Hg] Maddy Calderon [facility] 4 14:43:32 Date Recorded Body height Body mass index (BMI) Body weight Systolic blood pressure Diastolic blood pressure Provider Name and Address Organization Details Last Updated DateTime 08/23/2024 175.26 cm 49.9 kg/m2 544782.2 2 g 114 mm[Hg] 80 mm[Hg] Tosin Sergey [facility] 5 10:32:47 Social History Question Answer Notes LastModified by Organizat ion Details LastModified Time Tobacco Smoking Status Former Smoker QUIT 2005 Brea Keemle [facility] 06/08/2016 14:34:38 Do You Have An Advance Directive? No [email or web address] Information not available 06/07/2019 What Is Your Level Of Alcohol Consumption? None [email or web address] Information not available 06/08/2016 What Is Your Level Of Caffeine Consumption? Moderate Information not available 07/08/2017 How Much Tobacco Do You Chew? None Information not available 07/13/2018 What Type Of Diet Are You Following? REGULAR [email or web address] Information not available 06/07/2019 Which Illicit Or Recreational Drugs Have You Used? No [email or web address] Information not available 06/07/2019 Do You Or Have You Ever Used E-cigarettes Or Vape? Never Used Electronic Cigarettes Information not available 01/19/2019 Education 2 Year College Informatio n not available 07/08/2017 What Is Your Occupation? [employer] Information not available 07/11/2017 When Did You Quit Smoking? 15+yearssincel antoineizaiah [email or web address] Information not available 10/28/2022 Live Alone Or With Others? With Others Information not available 07/08/2017 Marital Status [email or web address] Informatio n not available 06/08/2016 What Was The Date Of Your Most Recent Tobacco Screening? 11/08/2022 [email or web address] Information not available 11/08/2022 What Is Your Relationship Status? Information not available 05/19/2021 Seat Belts Used [...] available 2016 15:14:09 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 Condition Response Heart Problems Y Coronary Artery Disease Y Other Y Chronic Obstructive Pulmonary Disease Y Ear or Hearing Problems Y Migraines Y Depression Y COPD Y Pneumonia Y Urinary Problems Y Heart Attack (OR) Y Diabetes Y Bleeding Disorder Y Arthritis Y Asthma Y Sleep Apnea Y Sleep Disorder Y High Cholesterol Y Snoring problems Y Heart Disease Y Bronchitis Y Headaches Y Hypertension Y Osteoporosis Y Glasses/Contacts Y Immunizations Vaccine Type Date Status Note Provider Nam e and Address Organization Details Recorded Time Influenza, high-dose, trivalent, PF 9 completed Not Available [facility] 07/07/2019 02:48:55 Pneumococcal conjugate PCV 13 0 completed Not Available [facility] 07/07/2019 02:48:26 Influenza, high-dose, quadrivalent, PF 0 completed Monica Osorio [facility] 06/16/2020 15:59:45 Influenza, high-dose, quadrivalent, PF 2 completed Monica Osorio [facility] 07/28/2021 12:03:00 pneumococcal polysaccharide PPV23 2 completed MIQUEL HERRMANN MD [address] [place] [address], [phone], [facility] 08/18/2021 11:04:59 Influenza, split virus, quadrivalent, preservative 7 completed MIQUEL HERRMANN MD [address] [place] [address], [phone], [facility] 11/08/2022 15:20:57 pneumococcal polysaccharide PPV23 3 [facility] 08:08:52 Tdap 9 completed MIQUEL HERRMANN MD [address] [place] [address], [phone], [facility] 11/08/2022 15:20:58 influenza nasal, unspecified formulation 2 completed MIQUEL HERRMANN MD [address] [place] [address], [phone], [facility] 11/08/2022 15:20:58 zoster recombinant 9 completed MIQUEL HERRMANN MD [address] [place] [address], [phone], [facility] 11/08/2022 15:20:57 zoster recombinant 9 completed MIQUEL HERRMANN MD [address] [place] [address], [phone], [facility] 11/08/2022 15:20:57 Influenza, high-dose, quadrivalent, PF 0 completed MIQUEL HERRMANN MD [address] [place] [address], [phone], [facility] 11/08/2022 15:20:57 Influenza, high-dose, quadrivalent, PF 1 completed MIQUEL HERRMANN MD [address] [place] [address], [phone], [facility] 11/08/2022 15:20:57 COVID-19, mRNA, LNP-S, PF, 100 mcg/0.5mL dose or 50 mcg/0.25mL dose 1 completed MIQUEL HERRMANN MD [address] [place] [address], [phone], [facility] 11/08/2022 15:20:57 COVID-19, mRNA, LNP-S, PF, 100 mcg/0.5mL dose or 50 mcg/0.25mL dose 2 completed MIQUEL HERRMANN MD [address] [place] [address], [phone], [facility] 11/08/2022 15:20:57 COVID-19, mRNA, LNP-S, PF, 100 mcg/0.5mL dose or 50 mcg/0.25mL dose 1 completed MIQUEL HERRMANN MD [address] [place] [address], [phone], [facility] 11/08/2022 15:20:58 COVID-19, mRNA, LNP-S, bivalent, PF, 50 mcg/0.5 mL or 25mcg/0.25 mL dose 2 completed MIQUEL HERRMANN MD [address] [place] [address], [phone], [facility] 11/08/2022 15:20:58 Hep A, adult 0 completed MIQUEL HERRMANN MD [address] [place] [address], [phone], [facility] 11/08/2022 15:20:58 Hep A, adult 9 completed MIQUEL HERRMANN MD [address] [place] [address], [phone], [facility] 11/08/2022 15:20:58 Influenza, split virus, quadrivalent, PF 6 completed MIQUEL HERRMANN MD [address] [place] [address], [phone], [facility] 11/08/2022 15:20:58 Past Encounters Encounter ID Performer Location Encounter Start Date Encounter Closed Date Diagnosis/Indication Diagnosis SNOMED-CT Code Diagnosis ICD10 Code Diagnosis Note [id number] GUERA JAQUEZ, AUD E[facility] [address] [place] [address] 06/30/2016 14:02:35 06/30/2016 15:00:50 Sensorineural hearing loss of bilateral ears 699299866 H90.3 Bilateral tinnitus 38232 59716 102 H93.13 [id number] MIQUEL HERRMANN MD [facility] [address] [place] [address] 09/16/2016 09:51:54 09/16/2016 13:47:26 Acute exacerbation of asthma 164005171 J45.901 Patient has failed outpatient therapy as he is on Zithromax, prednisone and frequent neb treatments with continued diffuse wheezing. I have called [facility] emergency room and patient will be seen there right away for further evaluation and probable admission to hospital. [id number] MIQUEL HERRMANN MD [facility] [address] [place] [address] 09/22/2016 07:41:54 09/22/2016 08:33:11 Acute bronchitis 07893005 J20.9 Finish course of Zithromax Chronic ob structive pulmonary disease 77713351 J44.9 Finish course of prednisone . Continue duo nebs as directed. Patient is slowly improving. He will call and return if he doesn't continue to improve or if he should worsen. [id number] JERRY ROSENTHAL APRN ENDOCRINO [facility] [address] [place] [address] 11/04/2016 09:35:01 11/04/2016 11:11:18 Uncontrolled type 2 diabetes mellitus [id number] E11.65 Diabetes mellitus {{Type 1 Type 2*}}, {{uncontro lled* cont rolled}}. ? ? A1C at the office today is {{10.3# }} %. Last A1c {{8.7# }} % on 05/03/16. ? ? Goal A1C by ADA criteria is less than 7%. Random blood glucose 404. Recommenda tions:-Dis cussed natural progressio n of diabetes and impact of diet and exercise. -Continue levemir 80units twice daily (pen) -Increase Novolog 30 units before breakfast, lunch, and dinner. (vial) At next refill, will switch to insulin pens. - Patient is instructed to restrict {{his* her }} carbohydra jacquelyn (less than 60 g per meal and less than 15 g per snack). Instructed on carbohydra te counting and importance of carbohydra te consistenc y. Handout given and reviewed. - Monitor blood glucose at least {{1 2 3* 4 5}} times per day {{before breakfast before breakfast and before dinner or at bedtime be fore meals and before bedtime*}} and any time {{he* she} } feels low. Blood glucose goals reviewed (i.e. fasting 80-130, post-prand ial <180, and hypoglycem ia <70). Patient advised to call our office if recurrent hypoglycem ia. - Untoward consequenc es of uncontroll ed diabetes discussed, including but not limited to peripheral diabetic neuropathy , diabetic nephropath y, diabetic retinopath y, heart attack, and stroke. - Dietitian referral: {{Yes* No Declined P reviously referred}} - Encouraged to be active (30 minutes of moderate intensity exercise i.e. walking 5 times weekly). Weight loss will help with insulin sensitizat ion. - Hypoglycem ia symptoms explained and treatment for this reviewed. - Patient is {{up to date on* needs} } foot exam. - Patient is {{up to date on* needs} } eye exam. (Dr. Flowers) - Patient is {{up to date on needs*} } urine testing for microalbum in. - Patient verbalized understand ing of treatment plan. All questions answered. -Last labs on 09/18/16BUN 31Creatini ne 1.0GFR 76TSH 0.883AST 35ALT 36 Hyperlipidemia 27001121 E78.5 Goal LDL is under 100 mg/dl. Last LDL: 111 on 05/03/16Tr iglyceride s: 301 Upon further questionin g, patient states that he has not been taking pravastati n.Encourag ed patient to restart pravastati n therapy.Co ntinue dietary changes as recommende d. Essential hypertension 75300983 I10 Goal B.P is less than 140/90 mmHg. Continue current anti-hyper tensive medication s as appropriat e per patient? s PCP. [id number] JERRY ROSENTHAL APRN ENDOCRINO [facility]Y [address] [place] [address] 12/22/2016 14:58:29 12/23/2016 09:38:55 Uncontrolled type 2 diabetes mellitus [id number] E11.65 Diabetes mellitus {{Type 1 Type 2*}}, {{uncontro lled* cont rolled}}. ? ? Last A1C was {{10.3# }} % up from {{8.7# }} % on 05/03/16. ? ? Goal A1C by ADA criteria is less than 7%. Random blood glucose 266. Recommenda tions:-Dis cussed potential treatment options including GLP-1, SGLT-2, TZDs, and concentrat ed U-500 insulin. He is not a candidate for GLP-1s at this time because of his hypertrigl yceridemia and the fact that he discontinu ed his statin therapy. He is not a candidate for TZDs given his history of heart attack. Will try SGLT-2, potential side effects discussed, insurance prefers Farxiga. May reconsider GLP-1 if cholestero l improves once he restarts statin therapy.-I ncrease levemir to 85 unit twice daily -Increase Novolog 35 units before breakfast, lunch, and dinner. -Start Jardiance 25mg daily. SGLT-2 inhibitor therapy mechanism of action, benefits [ A1c reduction and potential weight loss] and potential side effects including but not limited to polyuria, increased risk of genitourin terence tract infections i.e. yeast infection, hypotensio n and hyperkalem ia discuss in detail. Instructed patient to stop Farxiga should he develops any nausea/vom iting/abdo madeleine pain/dehyd ration or severe hyperglyce monica and call our office for further advice. Patient verbalized understand ing and agreed to start therapy. Free medical sample given. - Patient is instructed to restrict {{his* her }} carbohydra jacquelyn (less than 60 g per meal and less than 15-20 g per snack). Reinforced importance of carbohydra te consistenc y. - Monitor blood glucose at least {{1 2 3* 4 5}} times per day {{before breakfast before breakfast and before dinner or at bedtime be fore meals and before bedtime*}} and any time {{he* she} } feels low. Blood glucose goals reviewed (i.e. fasting 80-130, post-prand ial <180, and hypoglycem ia <70). Patient advised to call our office if recurrent hypoglycem ia. - Dietitian referral: {{Yes* No Declined P reviously referred}} - Encouraged to be active (30 minutes of moderate intensity exercise i.e. walking 5 times weekly). Weight loss will help with insulin sensitizat ion. - Hypoglycem ia symptoms explained and treatment for this reviewed. - Patient is {{up to date on* needs} } foot exam. - Patient is {{up to date on* needs} } eye exam. (Dr. Flowers) - Patient is {{up to date on* needs} } urine testing for microalbum in. - Patient verbalized understand ing of treatment plan. All questions answered. -Last labs on 09/18/16BUN 31Creatini ne 1.0GFR 76TSH 0.883AST 35ALT 36 Hyperlipidemia 33773125 E78.5 Goal LDL is under 100 mg/dl. Last LDL: 111 on 05/03/16Tr iglyceride s: 301 Discussed statin therapy with patient. His ASCVD risk is 27.8% and he should be on a high-inten sity statin. However, he does have a history of slightly elevated LFTs. Will restart low-dose statin for now.Contin ue dietary changes as recommende d. Essential hypertension 44288800 I10 Goal B.P is less than 140/90 mmHg. Continue current anti-hyper tensive medication s as appropriat e per patient? s PCP. Morbid obesity 621516319 E66.01 -Dietary recommenda tions as above. -Exercise recommenda tions as above.-Dis cussed potential weight loss medication s. However, patient is not a good candidate given his history and current RX of anti-depre ssants. Discussed liraglutid e would be a great option if his cholestero l was under better control.-A lso discussed bariatric surgery. His had the rou en y procedure done with some success. He attended a seminar but has not been motivated to take the next step. Encouraged patient to do more research about the procedure and to optimize diet and exercise. [id number] MIQUEL HERRMANN MD [facility] [address] [place] [address] 01/03/2017 13:15:13 01/03/2017 14:08:06 Hypertensive disorder 28291828 I10 Hyperlipidemia 70684031 E78.5 Chronic depression 85577 0009 F34.1 Chronic ob structive pulmonary disease 51415013 J44.9 Diabetic p eripheral neuropathy 945810920 E11.40 Patient has signed CSA and SILVINO is appropriat e. [id number] [facility] [address] [place] [address] 01/20/2017 13:25:42 01/20/2017 14:22:17 Diabetes mellitus 00618964 E11.65 [id number] JERRY ROSENTHAL APRN ENDOCRINO [facility] [address] [place] [address] 02/07/2017 08:28:32 02/07/2017 15:58:46 Uncontrolled type 2 diabetes mellitus 805740043 E11.65 Diabetes mellitus {{Type 1 Type 2*}}, {{uncontro lled* cont rolled}}. ? ? A1c in office today of 7.7%, down from {{10.3# }} % (11/04/16). ? ? Goal A1C by ADA criteria is less than 7%. Random blood glucose 198. Recommenda tions:-Con tinue levemir 85 units twice daily -Continue Novolog 30 units before breakfast, lunch, and dinner. -Continue Farxiga 10mg daily. - Patient is instructed to restrict {{his* her }} carbohydra jacquelyn (less than 60 g per meal and less than 15-20 g per snack). Reinforced importance of carbohydra te consistenc y. - Monitor blood glucose at least {{1 2 3* 4 5}} times per day {{before breakfast before breakfast and before dinner or at bedtime be fore meals and before bedtime*}} and any time {{he* she} } feels low. Blood glucose goals reviewed (i.e. fasting 80-130, post-prand ial <180, and hypoglycem ia <70). Patient advised to call our office if recurrent hypoglycem ia. - Dietitian referral: {{Yes* No Declined P reviously referred}} - Encouraged to be active (30 minutes of moderate intensity exercise i.e. walking 5 times weekly). Weight loss will help with insulin sensitizat ion. - Hypoglycem ia symptoms explained and treatment for this reviewed. - Patient is {{up to date on* needs} } foot exam. - Patient is {{up to date on* needs} } eye exam. (Dr. Flowers) - Patient is {{up to date on* needs} } urine testing for microalbum in. - Patient verbalized understand ing of treatment plan. All questions answered. -Last labs on 09/18/16BUN 31Creatini ne 1.0GFR 76TSH 0.883AST 35ALT 36 Hyperlipidemia 90782013 E78.5 Goal LDL is under 100 mg/dl. Last LDL: 111 on 05/03/16Tr iglyceride s: 301 Continue pravastati n as prescribed .Continue dietary changes as recommendry d. Essential hypertension 88464477 I10 Goal B.P is less than 140/90 mmHg. Continue current anti-hyper tensive medication s as appropriat e per patient? s PCP. Morbid obesity 723618309 E66.01 -4lb weight loss since last visit.- tary recommenda tions as above. -Exercise recommenda tions as above. [id number] JERRY ROSENTHAL APRN ENDOCRINO [facility] [address] [place] [address] 05/20/2017 13:22:23 05/20/2017 14:04:52 Uncontrolled type 2 diabetes mellitus 667691771 E11.65 Diabetes mellitus {{Type 1 Type 2*}}, {{uncontro lled* cont rolled}}. ? ? A1c in office today of 7.7%, same as 02/07/17. ? ? Goal A1C by ADA criteria is less than 7%. Random blood glucose 218. Recommenda tions:-Con tinue levemir 85 units twice daily -Continue Novolog 30 units before breakfast, lunch, and dinner. -Continue Farxiga 10mg daily. - Patient is instructed to restrict {{his* her }} carbohydra jacquelyn (less than 60 g per meal and less than 15-20 g per snack). Reinforced importance of carbohydra te consistenc y and dietary discretion . - Monitor blood glucose at least {{1 2 3* 4 5}} times per day {{before breakfast before breakfast and before dinner or at bedtime be fore meals and before bedtime*}} and any time {{he* she} } feels low. Blood glucose goals reviewed (i.e. fasting 80-130, post-prand ial <180, and hypoglycem ia <70). Patient advised to call our office if recurrent hypoglycem ia. - Dietitian referral: {{Yes* No Declined P reviously referred}} - Encouraged to be active (30 minutes of moderate intensity exercise i.e. walking 5 times weekly). Weight loss will help with insulin sensitizat ion. - Hypoglycem ia symptoms explained and treatment for this reviewed. - Patient is {{up to date on* needs} } foot exam. - Patient is {{up to date on* needs} } eye exam. (Dr. Flowers) Patient to schedule. - Patient is {{up to date on* needs} } urine testing for microalbum in. - Patient verbalized understand ing of treatment plan. All questions answered. -Last labs on 09/18/16BUN 31Creatini ne 1.0GFR 76TSH 0.883AST 35ALT 36 Hyperlipidemia 44007086 E78.5 Goal LDL is under 100 mg/dl. Last LDL: 111 on 05/03/16Tr iglyceride s: 301 Continue pravastati n as prescribed .Continue dietary changes as recommende d. Essential hypertension 92195491 I10 Goal B.P is less than 140/90 mmHg. Continue current anti-hyper tensive medication s as appropriat e per patient? s PCP. Morbid obesity 120206839 E66.01 -Weight gain since last visit. Patient asked about addipex. I advised him that I do not recommend that given his history of hypertensi on, OR, and he is currently taking cymbalta.- Dietary recommenda tions as above. Stategies to avoid temptation s discussed. -Exercise recommenda tions as above. 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 [id number] MARIETTA SMITH, DO [facility] [address] [place] [address] 05/20/2017 14:19:09 05/20/2017 16:09:56 Lesion of penis 785238616 N48.9 white hard tender lesion overlying penile skin on the right side of the distal penis. no ulceration or bleeding. i would like to refer to urology to evaluate this new penile lesion. 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 Body mass index 40+ - severely obese 035742543 Z68.42 Continue weight loss efforts. Screening for malignant neoplasm of colon 163901920 Z12.11 [id number] JERRY ROSENTHAL APRN ENDOCRINO LOGY [address] [place] [address] 09/02/2017 14:05:45 09/02/2017 15:17:19 Uncontrolled type 2 diabetes mellitus 476777565 E11.65 Diabetes mellitus {{Type 1 Type 2*}}, {{uncontro lled* cont rolled}}. ? ? A1c in office today of 8.2%, up from 7.7% 05/20/17. ? ? Goal A1C by ADA criteria is less than 7%. Random blood glucose 210 Recommenda tions: -Discussed potential treatment options. Patient is interested in weight loss medication s but does not qualify. Discussed Victoza. Patient thinks that he tried a similar medication in the past and had some nausea. He is willing to try again and denies any history of pancreatit is or family history of thyroid cancer. We will start Victoza in attemptes to decrease insulin doses. Agreed to the following: -Continue levemir 90 units twice daily-Cont inue Novolog 30 units before breakfast, lunch, and dinner.-Co ntinue Farxiga 10mg daily.-Sta rt Victoza. Inject 0.6mg daily for 1 week, then 1.2,g daily for 1 week, then 1.8mg daily thereafter . GLP-1 therapy benefits and risks were discussed in length with patient. Benefits include: lowering appetite, delaying gastric emptying, limiting hepatic glucose output, weight loss, improving insulin release at the time of a meal. Common side effects are nausea and vomiting, which are often self-limit ed with limiting portion size and meal fat content. Risk of pancreatit is was discussed and for what symptoms to go to the ER. We think the benefits of this medication outweigh the risk of pancreatit is. Questionab le concern of stimulatin g pancreatic cancer to grow is being evaluated at this time. In rats, therapy have been shown to cause thyroid C-cell tumors or hyperplasi a. At this time it is unclear if GLP1 therapy increases the risk of thyroid cancer in humans, and currently we think the benefits of this medication outweigh the risk.- Patient is instructed to restrict {{his* her }} carbohydra jacquelyn (less than 60 g per meal and less than 15-20 g per snack). Reinforced importance of carbohydra te restrictio n. - Monitor blood glucose at least {{1 2 3* 4 5}} times per day {{before breakfast before breakfast and before dinner or at bedtime be fore meals and before bedtime*}} and any time {{he* she} } feels low. Blood glucose goals reviewed (i.e. fasting 80-130, post-prand ial <180, and hypoglycem ia <70). Patient advised to call our office if recurrent hypoglycem ia. - Dietitian referral: {{Yes* No Declined P reviously referred}} ; Follow up with Augustine Louis RD as scheduled. - Encouraged to be active (30 minutes of moderate intensity exercise i.e. walking 5 times weekly). Weight loss will help with insulin sensitizat ion. - Hypoglycem ia symptoms explained and treatment for this reviewed. - Patient is {{up to date on* needs} } foot exam. - Patient is {{up to date on needs*} } eye exam. (Dr. Flowers) - Patient is {{up to date on* needs} } urine testing for microalbum in. ([facility]) - Patient verbalized understand ing of treatment plan. All questions answered. -Last labs on 07/11/17BUN 18Creatini ne 0.91GFR 89AST 24ALT 26MACR positive (40) 02/07/17 Hyperlipidemia 61656874 E78.5 Goal LDL is under 100 mg/dl. Last LDL: 102 on 07/11/17Tri glycerides : 202 Continue pravastati n as prescribed .Continue dietary changes as recommende d. Essential hypertension 07197354 I10 Goal B.P is less than 140/90 mmHg. Continue current anti-hyper tensive medication s as appropriat e per patient? s PCP. Morbid obesity 325525985 E66.01 -Dietary recommenda tions as above. -Will start Victoza as above for blood glucose and cardiovasc ular protection . It may assist with weight loss efforts. -Exercise recommenda tions as above. Renal diso rder due to type 2 diabetes mellitus 105705890 E11.22 MACR positive (40) on 02/07/17.Co ntinue losartan therapy as ordered. [id number] MIQUEL HERRMANN MD [facility] [address] [place] [address] 10/17/2017 12:51:54 10/17/2017 13:26:05 Chronic depression 389281341 F34.1 feels cymbalta is not effective any longer. patient will go ahead and stop Cymbalta and start fluoxetine as directed instead. Recheck in 1 month. This may need to be increased. [id number] ISAAK FLOWERS MD OPHTHALMO LOGY [address] [place] [address] 10/25/2017 14:33:49 10/26/2017 08:48:25 Type 1 diabetes mellitus 03775004 E10.9 Bilateral pseudophakia 4919882945 8564249 Z96.1 Myopia 20934233 H52.13 Presbyopia 04235335 H52. 4 [id number] MIQUEL HERRMANN MD [facility] [address] [place] [address] [place] [address] 12/28/2017 10:05:54 12/28/2017 10:41:40 Hypertensive disorder 22085449 I10 Hyperlipidemia 94247561 E78.5 Chronic depression 08585 0009 F34.1 Chronic ob structive pulmonary disease 22391475 J44.9 Diabetic p eripheral neuropathy 812463220 E11.40 Patient has signed CSA and SILVINO is appropriat e. Body mass index 40+ - severely obese 715361968 Z68.42 Continue weight loss efforts. [id number] JERRY ROSENTHAL APRN ENDOCRINO LOGY [address] [place] [address] 01/10/2018 09:41:56 01/10/2018 12:47:12 Uncontrolled type 2 diabetes mellitus [id number] E11.65 Diabetes mellitus {{Type 1 Type 2*}}, {{uncontro lled* cont rolled}}. ? ? A1c in office today of 8.1%, slightly down from 8.2%. ? ? Goal A1C by ADA criteria is less than 7%. Random blood glucose 280. Recommenda tions: -Patient is ready to try victoza now. Potential common and rare side effects discussed. Reviewed pen use and dosing. -Continue levemir 100 units twice daily-Cont inue Novolog 30 units before breakfast, lunch, and dinner.-Co ntinue Farxiga 10mg daily.-Sta rt Victoza. Inject 0.6mg daily for 1 week, then 1.2,g daily for 1 week, then 1.8mg daily thereafter .- Patient is instructed to restrict {{his* her }} carbohydra jacquelyn (less than 60 g per meal and less than 15-20 g per snack). Reinforced importance of carbohydra te restrictio n and dietary discretion . - Monitor blood glucose at least {{1 2 3* 4 5}} times per day {{before breakfast before breakfast and before dinner or at bedtime be fore meals and before bedtime*}} and any time {{he* she} } feels low. Blood glucose goals reviewed (i.e. fasting 80-130, post-prand ial <180, and hypoglycem ia <70). Patient advised to call our office if recurrent hypoglycem ia. - Dietitian referral: {{Yes* No Declined P reviously referred}} ; Follow up with Augustine Louis RD as scheduled. - Encouraged to be active (30 minutes of moderate intensity exercise i.e. walking 5 times weekly). Weight loss will help with insulin sensitizat ion. - Hypoglycem ia symptoms explained and treatment for this reviewed. - Patient is {{up to date on* needs} } foot exam. - Patient is {{up to date on* needs} } eye exam. (Dr. Flowers) - Patient is {{up to date on needs*} } urine testing for microalbum in. (ARB); Orders placed. - Patient verbalized understand ing of treatment plan. All questions answered. -Last labs on 07/11/17BUN 18Creatini ne 0.91GFR 89AST 24ALT 26MACR positive (40) 02/07/17 Hyperlipidemia 26761268 E78.5 Goal LDL is under 100 mg/dl. Last LDL: 102 on 07/11/17Tri glycerides : 202 Continue pravastati n as prescribed .Continue dietary changes as recommende d. Essential hypertension 30996002 I10 Goal B.P is less than 140/90 mmHg. Continue current anti-hyper tensive medication s as appropriat e per patient? s PCP. Renal diso rder due to type 2 diabetes mellitus 392374286 E11.22 MACR positive (40) on 02/07/17.Co ntinue losartan therapy as ordered.Re peat MACR today. [id number] MIQUEL HERRMANN MD [facility] [address] [place] [address] 05/04/2018 10:54:04 05/04/2018 13:04:21 Nausea 164195894 R11.0 Contusion of rib 0766053 06 S20.20XS Lower resp iratory tract infection 20098263 J22 [id number] MIQUEL HERRMANN MD [facility] [address] [place] [address] 06/01/2018 14:30:56 06/01/2018 15:59:36 Viral gastroenteritis 085242729 A08.4 This has resolved but he still has some fatigue. Upper resp iratory infection 38567467 J06.9 His symptoms are consistent with a viral upper respirator y infection. Claritin as directed. Flonase as directed. Promethazi ne DM as directed. If he should develop sputum or discolored nasal congestion , he will let me know and I would then use a course of amoxicilli n. I asked him to stop the amoxicilli n that he has left over that he is taking currently. Osteoarthr itis of knee 411701540 M17.[address] Esme newton [id number] JERRY ROSENTHAL APRN ENDOCRINO [facility]Y [address] [place] [address] 07/06/2018 10:18:23 07/06/2018 16:03:40 Uncontrolled type 2 diabetes mellitus 521707008 E11.65 Diabetes mellitus {{Type 1 Type 2*}}, {{uncontro lled* cont rolled}}. ? ? A1c in office today of 7.7%, down from 8.1% 01/10/18. ? ? Goal A1C by ADA criteria is less than 7%. Random blood glucose 280. Recommenda tions: -Continue levemir 60 units twice daily-Cont inue Novolog 20 units before breakfast, lunch, and dinner.-Co ntinue Farxiga 10mg daily.-Con tinue Victoza. Inject 1.8mg daily.- Patient is instructed to restrict {{his* her }} carbohydra jacquelyn (less than 60 g per meal and less than 15-20 g per snack). Reinforced importance of carbohydra te restrictio n and dietary discretion . - Monitor blood glucose at least {{1 2 3* 4 5}} times per day {{before breakfast before [...] D eclined Pr eviously referred*} }; MNT 2016 - Encouraged to be active (30 minutes of moderate intensity exercise i.e. walking 5 times weekly). Weight loss will help with insulin sensitizat ion. - Hypoglycem ia symptoms explained and treatment for this reviewed. - Patient is {{up to date on* needs} } foot exam. - Patient is {{up to date on* needs} } eye exam. (Dr. Flowers) - Patient is {{up to date on* needs} } urine testing for microalbum in. (ARB); - Patient verbalized understand ing of treatment plan. All questions answered. -Last labs on 07/11/17- pt has physical next week and anticipate d fasting labs with PCP, not fasting todayBUN 18Creatini ne 0.91GFR 89AST 24ALT 26MACR positive (119) 01/10/18 Hyperlipidemia 01317293 E78.5 Goal LDL is under 100 mg/dl. Last LDL: 102 on 07/11/17Tri glycerides : 202 Continue pravastati n as prescribed .Continue dietary changes as recommende d. Essential hypertension 79615834 I10 Goal B.P is less than 140/90 mmHg. Continue current anti-hyper tensive medication s as appropriat e per patient? s PCP. Renal diso rder due to type 2 diabetes mellitus 009502968 E11.22 MACR positive (119) on 01/10/18.Co ntinue losartan therapy as ordered. Body mass index 40+ - severely obese 640551321 Z68.42 Dietary recommenda tions as above. Exercise recommenda tions as above. [id number] MIQUEL HERRMANN MD [facility] [address] [place] [address] 07/13/2018 12:23:23 07/13/2018 14:09:48 Adult health examination 693726856 Z00.00 Screening for malignant neoplasm of prostate 326386365 Z12.5 Hypertensive disorder 38 095308 I10 Hyperlipidemia 58582017 E78.5 Chronic depression 41310 0009 F34.1 Depression is uncontroll ed. Increase Prozac to 60 mg daily. If not improving in one month or worsening, he will let me know. Chronic ob structive pulmonary disease 78233437 J44.9 Diabetic p eripheral neuropathy 527468566 E11.40 Patient has signed CSA and SILVINO is appropriat e.Patient doesn't need gabapentin today. Body mass index 40+ - severely obese 263202989 Z68.42 Continue weight loss efforts. Screening for malignant neoplasm of colon 205178596 Z12.11 Arrange referral to GI for colonoscop y Candidal balanitis 05052 007 B37.42 Diflucan as directed. If not improving, he will let me know we can arrange referral to urology dermatolog y. [id number] JERRY ROSENTHAL APRN ENDOCRINO [facility]Y [address] [place] [address] 12/29/2018 10:22:43 12/29/2018 11:09:20 Uncontrolled type 2 diabetes mellitus 091852188 E11.65 Diabetes mellitus {{Type 1 Type 2*}}, {{uncontro lled* cont rolled}}. ? ? A1c in office today of 10.2%, up from 7.7% 07/06/18. ? ? Goal A1C by ADA criteria is less than 7%. Random blood glucose 419. Recommenda tions: -Restart levemir 60 units twice daily-Rest art Novolog 20 units before breakfast, lunch, and dinner.-Re start Farxiga 10mg daily after rash clears.-Re start Victoza. Inject 0.6mg daily for 1 week, then 1.2mg daily for 1 week, then 1.8mg daily.-Ara l in 1 week with logs.- Patient is instructed to restrict {{his* her }} carbohydra jacquelyn (less than 60 g per meal and less than 15-20 g per snack). Reinforced importance of carbohydra te restrictio n and dietary discretion . - Monitor blood glucose at least {{1 2 3* 4 5}} times per day {{before breakfast before [...] D eclined Pr eviously referred*} }; MNT 2016 - Encouraged to be active (30 minutes of moderate intensity exercise i.e. walking 5 times weekly). Weight loss will help with insulin sensitizat ion. - Hypoglycem ia symptoms explained and treatment for this reviewed. - Patient is {{up to date on* needs} } foot exam. - Patient is {{up to date on* needs} } eye exam. (Dr. Flowers) - Patient is {{up to date on needs*} } urine testing for microalbum in. (ARB); Will order at next visit. - Patient verbalized understand ing of treatment plan. All questions answered. -Last labs on 07/13/18BUN 18Creatini ne 0.88GFR 91AST 20ALT 21MACR positive (119) 01/10/18 Hyperlipidemia 05202137 E78.5 Goal LDL is under 100 mg/dl. Last LDL: 105 on 07/13/18Tri glycerides : 284 Continue pravastati n as prescribed per PCP.Contin ue dietary changes as recommende d. Essential hypertension 28607122 I10 Goal B.P is less than 140/90 mmHg. Continue current anti-hyper tensive medication s as appropriat e per patient? s PCP. Renal diso rder due to type 2 diabetes mellitus 668804459 E11.22 MACR positive (119) on 01/10/18.Co ntinue losartan therapy as ordered. Candidiasis of skin 4988 3006 B37.2 -Start diflucan as below. [id number] MIQUEL HERRMANN MD [facility] [address] [place] [address] 01/19/2019 15:07:43 01/19/2019 15:42:54 Hypertensive disorder 61834706 I10 Hypertensi on is controlled . Hyperlipidemia 54427925 E78.5 Chronic depression 21158 0009 F34.1 Chronic ob structive pulmonary disease 81711280 J44.9 Diabetic p eripheral neuropathy 315152819 E11.40 Patient has signed CSA and SILVINO is appropriat e Body mass index 40+ - severely obese 174092826 Z68.42 Continue weight loss efforts. [id number] MIQUEL HERRMANN MD [facility] [address] [place] [address] 05/09/2019 10:26:05 05/09/2019 11:25:59 Strain of neck muscle 090656676 S16.1XXA Medrol Dosepak as directed since he can't take anti-infla mmatories. He can't tolerate steroids okay. Arrange physical therapy. Screening for malignant neoplasm of colon 928168084 Z12.11 Insomnia 534853391 G47.0 0 Discontinu e Benadryl begin trazodone as directed. Side effects discussed with patient Chronic ob structive pulmonary disease 58413764 J44.9 Steroid pack should help his residual COPD exacerbati on and if not he will let me know. Normal grief reaction 27 9553982 F43.20 I expressed my condolence s to Mr. Allen and his daughter on the of his and her mother [id number] JERRY ROSENTHAL APRN ENDOCRINO [facility]Y [address] [place] [address] 05/10/2019 14:05:21 05/10/2019 15:12:59 Uncontrolled type 2 diabetes mellitus 208197572 E11.65 Diabetes mellitus {{Type 1 Type 2*}}, {{uncontro lled* cont rolled}}. ? ? A1c in office today of 11.4%, up from 10.2% 12/29/18. ? ? Goal A1C by ADA criteria is less than 7%. Random blood glucose 396pp. Recommenda tions: -ER precaution s discussed. Agreed on the following treatment plan: -Restart levemir 30 units once daily at bedtime.-R estart Novolog 15 units before breakfast, lunch, and dinner.-Re start Victoza. Inject 0.6mg daily for 1 week, then 1.2mg daily for 1 week, then 1.8mg daily.-Hol d off on for now.-Call in 1 week with logs.- Patient is instructed to restrict {{his* her }} carbohydra jacquelyn (less than 60 g per meal and less than 15-20 g per snack). Reinforced importance of carbohydra te restrictio n and dietary discretion . - Monitor blood glucose at least {{1 2 3* 4 5}} times per day {{before breakfast before [...] D eclined Pr eviously referred*} }; MNT 2017; Discussed diabetes managment program, pt is agreeable to participat e now. - Encouraged to be active (30 minutes of moderate intensity exercise i.e. walking 5 times weekly). Weight loss will help with insulin sensitizat ion. - Hypoglycem ia symptoms explained and treatment for this reviewed. - Patient is {{up to date on* needs} } foot exam. - Patient is {{up to date on needs*} } eye exam. (Dr. Flowers) Pt to schedule. - Patient is {{up to date on* needs} } urine testing for microalbum in. (ARB); - Patient verbalized understand ing of treatment plan. All questions answered. -Last labs on 01/19/19BUN 21Creatini ne 1.10GFR 70AST 22ALT 22MACR positive (100) Hyperlipidemia 32277330 E78.5 Goal LDL is under 100 mg/dl. Last LDL: 105 on 07/13/18Tri glycerides : 284 Pt reports not taking pravastati n. Has refills on file. Advised patient to restart. Continue pravastati n as prescribed per PCP.Contin ue dietary changes as recommende d. Essential hypertension 09602815 I10 Goal B.P is less than 140/90 mmHg. Continue current anti-hyper tensive medication s as appropriat e per patient? s PCP. Renal diso rder due to type 2 diabetes mellitus 354400780 E11.22 MACR positive (119) on 01/10/18.Co ntinue losartan therapy as ordered. [id number] [facility]EM[facility] T CLOSED [address] [place] [address] 05/28/2019 11:38:17 05/28/2019 13:55:27 [id number] [facility] MANAGEM[facility] T CLOSED [address] [place] [address] 06/04/2019 11:47:24 06/04/2019 12:06:08 [id number] MIQUEL HERRMANN MD [facility] [address] [place] [address] 06/07/2019 12:54:56 06/07/2019 13:25:43 Essential hypertension 16254112 I10 continue with amlodipine and his losartan. Two-week follow-up. Reduce sodium diet. Work on weight loss. 2 weeks Administra tion of influenza vaccine 39687673 Z23 [id number] [facility] T CLOSED [address] [place] [address] 06/25/2019 11:43:55 06/25/2019 12:09:11 [id number] ANTHONY VELASQUEZ DO [address] [place] [address] 06/29/2019 13:43:40 06/29/2019 14:18:27 Hypertensive disorder 31109324 I10 reduced sodium diet. monitor and keep log of BP Active or passive immunization 872247986 Z23 Screening colonoscopy 44 8114998 Z12.11 [id number] [facility] CLOSED [address] [place] [address] 07/09/2019 10:45:23 07/09/2019 11:14:41 [id number] MIQUEL HERRMANN MD FAMILY [address] [address] 07/23/2019 14:01:13 07/23/2019 15:32:24 Adult health examination 376157300 Z00.00 Hypertensive disorder 38 278326 I10 Hypertensi on is controlled . Hyperlipidemia 85620002 E78.5 I explained that I didn't think pravastati n was causing penile rash or memory difficulti es. Discussed the benefits outweigh the risk. He will continue it. Chronic depression 29397 0009 F34.1 Chronic ob structive pulmonary disease 86466911 J44.9 Diabetic p eripheral neuropathy 446370748 E11.40 Patient has signed CSA and SILVINO is appropriat e Body mass index 40+ - severely obese 379121132 Z68.42 Continue weight loss efforts. Memory impairment 852607 006 R41.3 We'll check TSH and B12. If his symptoms should worsen, he will let me know within arrange referral to neurology. 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 ? ? A1c in office today of 7.5%, down from 11.4% 05/10/19. ? ? Goal A1C by ADA criteria is less than 7%. Random blood glucose 131. Recommenda tions: -Increase levemir 30u AM and 34 units at bedtime.-C ontinue Novolog 15-20 units before breakfast, lunch, and dinner.-Co ntinue Victoza. Inject 1.8mg daily.- Patient is instructed to restrict {{his* her }} carbohydra jacquelyn (less than 60 g per meal and less than 15-20 g per snack). Reinforced importance of carbohydra te restrictio n and dietary discretion . - Monitor blood glucose at least {{1 2 3* 4 5}} times per day {{before breakfast before [...] D eclined Pr eviously referred*} }; MNT 2017; Discussed diabetes management program, pt is agreeable to participat e now. - Encouraged to be active (30 minutes of moderate intensity exercise i.e. walking 5 times weekly). Weight loss will help with insulin sensitizat ion. - Hypoglycem ia symptoms explained and treatment for this reviewed. - Patient is {{up to date on* needs} } foot exam. - Patient is {{up to date on needs*} } eye exam. (Dr. Flowers) Pt has upcoming appt scheduled. - Patient is {{up to date on* needs} } urine testing for microalbum in. (ARB); - Patient verbalized understand ing of treatment plan. All questions answered. -Last labs on 07/23/19BUN 19Creatini ne 0.83GFR 92AST 18ALT 24MACR positive (100) 01/19/19 Hyperlipidemia 74337255 E78.5 Goal LDL is under 100 mg/dl. Last LDL: 93 on 07/23/19Trig lycerides: 138 Continue pravastati n as prescribed per PCP.Contin ue dietary changes as recommende d. Essential hypertension 43947198 I10 Goal B.P is less than 140/90 mmHg. Continue current anti-hyper tensive medication s as appropriat e per patient? s PCP. Renal diso rder due to type 2 diabetes mellitus 365508093 E11.22 MACR positive (100) on 01/19/19.Con tinue losartan therapy as ordered. [id number] Tia Patel [facility] T CLOSED [address] [place] [address] 08/17/2019 10:49:39 08/17/2019 11:02:31 [id number] ELIZABETH CERNA, DO [facility] [address] [place] [address] 08/20/2019 11:08:39 08/20/2019 13:30:12 Neoplasm of uncertain behavior of skin 00387487 D48.5 L samaritan somewhat deeper, possibly subcutaneo us neoplasm punch biopsy sent for path r/o carcinoma vs subq neoplasm/n os Wound care discussed with patient. Leave the bandage on for 24 hrs. Clean the area daily with warm soapy water, and apply polysporin ointment and a bandaid once daily until healed. Call the office if any increase in redness, drainage, or pain. Raised loly orrheic keratosis [id number] 97043 L82.1 If any lesions change, or if any other new or symptomati c lesions occur, patient understand s to return to the clinic for further evaluation Discussed sun precaution s; SPF 30+ Inflamed s eborrheic keratosis 844508617 L82.[address] per patients request: bilateral clavicles x4 , L upper back x1 pt tolerated well advised pt what to expect with freezing Skin sensa tion disturbance 39589332 R20.9 ISK Solar lentiginosis 51843 2006 L81.4 benign reassuranc e sunscren hats [id number] MIQUEL HERRMANN MD [facility] [address] [place] [address] 08/20/2019 12:20:22 08/20/2019 14:14:14 Anxiety 23580883 F41.9 will prescribe a few ativan for patient for upcoming dental procedures . this has worked well for his anxiety in the past. Silvino appropriat e on 07/20/19. CSA signed. UDS negative-a ppropriate . [id number] Tia Schraff [facility] T CLOSED [address] [place] [address] 1 08/31/2019 11:40:51 08/31/2019 11:53:12 [id number] Guera Simental SURGERY SCHEDULE [address] [place] [address] 1 09/04/2019 08:11:04 09/04/2019 08:12:56 [id number] [facility] [address] [place] [address] 1 09/14/2019 11:42:23 09/14/2019 11:54:38 [id number] [facility] [address] [place] [address] 1 10/25/2019 14:34:41 10/25/2019 14:48:31 [id number] [place] [address] [place] [address] 1 11/15/2019 13:07:42 11/15/2019 13:33:40 Uncontrolled type 2 diabetes mellitus 021628849 E11.65 Diabetes mellitus {{Type 1 Type 2*}}, {{uncontro lled* cont rolled}}. ? ? A1c in office today of 7.9%, up from 7.5%, 08/10/19. ? ? Goal A1C by ADA criteria is less than 7%. Random blood glucose 247. Recommenda tions: -Increase levemir 54u AM and 54 units at bedtime.-I ncrease Novolog 22-24 units before breakfast, lunch, and dinner.-Co ntinue Victoza. Inject 1.8mg daily.- Patient is instructed to restrict {{his* her }} carbohydra jacquelyn (less than 60 g per meal and less than 15-20 g per snack). Reinforced importance of carbohydra te restrictio n and dietary discretion . - Monitor blood glucose at least {{1 2 3* 4 5}} times per day {{before breakfast before [...] ia symptoms explained and treatment for this reviewed. - Patient is {{up to date on* needs} } foot exam. - Patient is {{up to date on needs*} } eye exam. (Dr. Flowers) Pt needs to reschedule , appt cancelled d/t COVID-19. - Patient is {{up to date on* needs} } urine testing for microalbum in. (ARB); - Patient verbalized understand ing of treatment plan. All questions answered. -Last labs on 07/23/19BUN 19Creatini ne 0.83GFR 92AST 18ALT 24MACR positive (100) 01/19/19 Hyperlipidemia 63807203 E78.5 Goal LDL is under 100 mg/dl. Last LDL: 93 on 07/23/19Trig lycerides: 138 Continue pravastati n as prescribed per PCP.Contin ue dietary changes as recommende d. Essential hypertension 03740923 I10 Goal B.P is less than 140/90 mmHg. Continue current anti-hyper tensive medication s as appropriat e per patient? s PCP. Renal diso rder due to type 2 diabetes mellitus 911420785 E11.22 MACR positive (100) on 01/19/19.Con tinue losartan therapy as ordered. [id number] MIQUEL HERRMANN MD [facility] [address] [place] [address] 11/16/2019 13:27:55 11/19/2019 08:40:45 Chronic obstructive pulmonary disease 26894644 J44.9 Prednisone as directed. He is aware of potential side effects of prednisone . Continue inhalers as directed. I encouraged him to follow up with his pulmonolog ist next week. If he is acutely worse, he will go to the emergency room Diarrhea 24469896 R19.7 Diarrhea has resolved. If it should recur and worsen, he will let me know Fatigue 38504542 R53.83 We'll check fatigue labs. I suspect his fatigue is largely due to his COPD. [id number] Tia Contreras [facility] T CLOSED [address] [place] [address] 11/29/2019 12:31:51 11/29/2019 12:35:35 [id number] TOSIN LUNDY MD [facility] [address] [place] [address] 01/10/2020 13:05:49 01/10/2020 14:46:26 Chronic obstructive pulmonary disease 23678757 J44.9 pt has chronic SOA on symbicort. has failed spiriva and advair. using nebs and albuterol inhaler frequently . has appt with pulmonary through [facility] next month, but he would like O2. he stays short of air 10/01. need appt for eval for this. Fatigue 19640091 R53.83 chronic fatigue. never came in for labs in late october. will order. [id number] MIQUEL HERRMANN MD [facility] [address] [place] [address] 01/28/2020 14:25:49 01/28/2020 15:19:26 Hypertensive disorder 52459082 I10 Hypertensi on is controlled . Hyperlipidemia 06988299 E78.5 Chronic depression 77034 0009 F34.1 Chronic ob structive pulmonary disease 87453580 J44.9 He will follow-up with his pulmonolog ist at the [facility] and discuss oxygen. Diabetic p eripheral neuropathy 133360475 E11.40 Patient has signed CSA and SILVINO is appropriat e Body mass index 40+ - severely obese 926123814 Z68.42 Continue weight loss efforts. Memory impairment 805562 006 R41.3 Mild. If it should worsen, he will let me know and we can arrange referral to neurology [id number] JERRY ROSENTHAL APRN ENDOCRINO LOGY [address] [place] [address] 03/11/2020 14:01:47 03/11/2020 14:45:04 Uncontrolled type 2 diabetes mellitus 734172819 E11.65 Diabetes mellitus {{Type 1 Type 2*}}, {{uncontro lled* cont rolled}}. ? ? A1c in office today of 8.3%, up from 7.9%, 11/15/19. ? ? Goal A1C by ADA criteria is less than 7%. Random blood glucose 222. Recommenda tions: -Discussed potential treatment options. Genital rash with farxiga, UTT metformin and victoza, allergy to sulfa. Agreed on the following: -Stop levemir-St op Novolog-St op Victoza.-S tart humulin R U-500. Inject 50u before breakfast, 100u before dinner, and 50u before bedtime snack. Take this insulin 20-30min before the meal. Instructed on how to use insulin pen, proper medication storage, potential injection sites, and potential adverse reactions. Patient verbalized understand ing via teach back method.-Ch esther BG TID and call with logs in 1 week for further titration. - Patient is instructed to restrict {{his* her }} carbohydra jacquelyn (less than 45 g per meal and less than 15-20 g per snack). Reinforced importance of carbohydra te restrictio n and dietary discretion . - Monitor blood glucose at least {{1 2 3* 4 5}} times per day {{before breakfast before [...] D eclined Pr eviously referred*} }; MNT 2017; - Encouraged to be active (30 minutes of moderate intensity exercise i.e. walking 5 times weekly). Weight loss will help with insulin sensitizat ion. - Hypoglycem ia symptoms explained and treatment for this reviewed.* * Risk reviewed with pt. - Patient is {{up to date on* needs} } foot exam. - Patient is {{up to date on needs*} } eye exam. (Dr. Flowers) Pt needs to reschedule , appt cancelled d/t COVID-19. - Patient is {{up to date on needs*} } urine testing for microalbum in. (ARB); - Patient verbalized understand ing of treatment plan. All questions answered. -Last labs on 01/28/20BUN 18Creatini ne 0.92GFR 86AST 24ALT 33MACR positive (100) 01/19/19 Hyperlipidemia 21591267 E78.5 Goal LDL is under 100 mg/dl. Last LDL: 124 on 01/28/20Tri glycerides : 291 Continue pravastati n as prescribed per PCP.Contin ue dietary changes as recommende d. Essential hypertension 56833136 I10 Goal B.P is less than 140/90 mmHg. Continue current anti-hyper tensive medication s as appropriat e per patient? s PCP. Renal diso rder due to type 2 diabetes mellitus 350377865 E11.22 MACR positive (100) on 01/19/19.Con tinue losartan therapy as ordered. [id number] ISAAK FLOWERS MD OPHTHALMO LOG[facility] [address] [place] [place] [place] [address] 04/03/2020 14:06:20 04/03/2020 16:44:47 Type 1 diabetes mellitus 20803235 E10.9 Bilateral pseudophakia [id number] 1538575 Z96.1 Myopic astigmatism 26020 4005 H52.209 Presbyopia 72037221 H52. 4 [id number] MIQUEL HERRMANN MD [facility] [address] [place] [address] 06/16/2020 15:03:58 06/16/2020 16:22:36 Chronic obstructive pulmonary disease 78901842 J44.9 O2 level is 93% at rest and 84% after walking briefly. Arrange home oxygen at 2 L/m per nasal cannula. Arrange referral to pulmonary. Continue current inhalers. If he should acutely worsen, he will go to the emergency room. Snoring 69917411 R06.83 Arrange appointmen t with pulmonary Administra tion of influenza vaccine 52550001 Z23 [id number] SILVESTRE MCLAIN PA-C PULMONARY [address] [facility], [address] [place] [address] 07/10/2020 12:59:17 07/11/2020 10:03:15 Dyspnea on exertion 87453137 R06.09 chest x-ray does not show infiltrate today. exercise pulse oximetry shows oxygen saturation on room air of 88%. PFTs do not show evidence of COPD. DLCO is normal. May also need cardiac evaluation . Increased risks of cardiac disease due to HTN, obesity, and diabetes. Hypoxemia 897735183 R09. [address] PE protocol ordered for hypoxemia. Patient will also need an echocardio gram with a bubble study to evaluate for CHF, pulmonary hypertensi on, and a shunt. CT chest PE protocol ordered for tomorrow morning. will call with result. he would be at increased risk for DVT/PE due to obesity. Former hea vy tobacco smoker 1198786682 06279 Z87.891 patient is a candidate for CT chest lung cancer screening. He has a 32-pack-ye ar smoking history. This is not ordered today because a CT PE protocol was ordered. Morbid obesity 619628639 E66.01 hypoxemia may be related to obesity hypoventil ation syndrome. Patient will be returning to clinic tomorrow for an ABG (had to leave today) Snoring 88543932 R06.83 patient will also neck need an in lab sleep study to evaluate for SARAI. [id number] HERMAN MONTOYA MD PULMONARY [address] [facility], [address] [place] [id number] 07/11/2020 12:22:59 07/11/2020 13:03:29 Dyspnea on exertion 35281268 R06.09 [id number] JERRY ROSENTHAL APRN ENDOCRINO LOGY [address] [place] [id number] 07/16/2020 13:54:54 07/16/2020 14:37:50 Multiple complications due to type 2 diabetes mellitus 186945593 E11.8 Diabetes mellitus {{Type 1 Type 2*}}, {{uncontro lled contr olled*}}. ? ? A1c in office today of 6.8%, up from 8.3%. ? ? Goal A1C by ADA criteria is less than 7%. Random blood glucose 198. Recommenda tions: -Congratul ated pt on significan t improvemen t in A1c! -Continueh umulin R U-500. [id number] efore breakfast, 105ubefore dinner, [id number] re bedtime snack. Take this insulin 20-30minbe fore the meal. Make take 1/2 dose for 1/2 the carbs.- Patient is instructed to restrict {{his* her }} carbohydra jacquelyn (less than 45 g per meal and less than 15-20 g per snack). Reinforced importance of carbohydra te restrictio n and dietary discretion . - Monitor blood glucose at least {{1 2 3* 4 5}} times per day {{before breakfast before [...] D eclined Pr eviously referred*} }; MNT 2017; - Encouraged to be active (30 minutes [...] } eye exam. (Dr. Flowers) - Patient is {{up to date on needs*} } urine testing for microalbum in. (ARB); Orders placed. - Patient verbalized understand ing of treatment plan. All questions answered. -Last labs on 01/28/20BUN 18Creatini ne 0.92GFR 86AST 24ALT 33MACR positive (100) 01/19/19 Hyperlipidemia 34465461 E78.5 Goal LDL is under 100 mg/dl. Last LDL: 124 on 8/10/20Tri glycerides : 291 Continue pravastati n as prescribed per PCP.Contin ue dietary changes as recommende d. Essential hypertension 21175967 I10 Goal B.P is less than 140/90 mmHg. Continue current anti-hyper tensive medication s as appropriat e per patient? s PCP. Renal diso rder due to type 2 diabetes mellitus 420374498 E11.22 MACR positive (100) on 01/19/19.Con tinue losartan therapy as ordered.Re peat MACR. [id number] ISAAK CASTRO MD E[facility] [address] [place] [address] [place] [address] 07/21/2020 13:50:01 07/22/2020 09:13:55 Dyspnea on exertion 89484363 R06.09 [id number] MIQUEL HERRMANN MD [facility] [address] [place] [address] 08/12/2020 15:09:47 08/12/2020 15:45:22 Adult health examination 181038821 Z00.00 Hypertensive disorder 38 586823 I10 Hypertensi on is controlled . Hyperlipidemia 47352701 E78.5 Chronic depression 44878 0009 F34.1 Stable. Continue fluoxetine Chronic ob structive pulmonary disease 53256923 J44.9 [facility] Diabetic p eripheral neuropathy 614005726 E11.40 Patient has signed CSA and SILVINO is appropriat e Body mass index 40+ - severely obese 271410415 Z68.42 Continue weight loss efforts. Screening for malignant neoplasm of prostate 569850656 Z12.5 [id number] MIQUEL HERRMANN MD [facility] [address] [place] [address] 09/25/2020 13:44:45 09/25/2020 14:14:10 Venous insufficiency of leg 445078718 I87.2 I explained venous insufficie ncy to patient and his . Elevate legs. Consider compressio n hose. Amlodipine may be contributi ng some decreased the dosage. Also will begin HCTZ. Hypertensive disorder 38 373911 I10 Hypertensi on is controlled Decrease amlodipine to 5 mg daily and begin HCTZ 12.5 mg every morning. Monitor blood pressure and he will let me know if he doesn't stay below 140/90 Sprain of shoulder rotator cuff 9342226934 04 S43.422A Left rotator cuff sprain Alternate heat and ice to area. Tylenol as directed. If not improving, we'll arrange referral to physical therapy. [id number] JERRY ROSENTHAL APRN ENDOCRINO LOGY [address] [place] [address] 11/10/2020 13:04:09 11/10/2020 15:49:36 Multiple complications due to type 2 diabetes mellitus 225382773 E11.8 Diabetes mellitus {{Type 1 Type 2*}}, {{uncontro lled contr olled*}}. ? ? A1c in office today of 7.0%, up from 6.8%, 07/16/20. ? ? Goal A1C by ADA criteria is less than 7%. Random blood glucose 237. Recommenda tions: -Congratul ated pt on maintainin g goal A1c! -Adjust humulin R U-500. Inject 60u before breakfast, 105u before dinner, and 30-55u before bedtime snack. Take this insulin 20-30min before the meal. Make take 1/2 dose for 1/2 the carbs. - Patient is instructed to restrict {{his* her }} carbohydra jacqeulyn (less than 45 g per meal and less than 15-20 g per snack). Reinforced importance of carbohydra te restrictio n and dietary discretion . - Monitor blood glucose at least {{1 2 3* 4 5}} times per day {{before breakfast before [...] } eye exam. (Dr. Flowers) - Patient is {{up to date on* needs} } urine testing for microalbum in. (ARB); Orders placed. - Patient verbalized understand ing of treatment plan. All questions answered. -Last labs on 01/28/20 BUN 18 Creatinine 0.92 GFR 86 AST 24 ALT 33 MACR positive (249) 07/16/20 Hyperlipidemia 76587230 E78.5 Goal LDL is under 100 mg/dl. Last LDL: 124 on 01/28/20Tri glycerides : 291 Continue pravastati n as prescribed per PCP.Contin ue dietary changes as recommende d. Essential hypertension 79490084 I10 Goal B.P is less than 140/90 mmHg. Continue current anti-hyper tensive medication s as appropriat e per patient? s PCP. Renal diso rder due to type 2 diabetes mellitus 174289097 E11.22 MACR positive (249) on 07/16/20. Continue losartan therapy as ordered. [id number] MIQUEL HERRMANN MD [facility] [address] [place] [address] 02/09/2021 14:37:31 02/09/2021 15:51:14 Diabetic peripheral neuropathy 905575472 E11.40 Patient has signed CSA and SILVINO is appropriat e. Continue gabapentin COVID-[address] scan consistent with COVID-19 pneumonia along with significan t desaturati on with minimal exertion. I encouraged him to go back to the emergency room right away and he states that he will do so. 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 I discussed the importance of sugar control for reducing risk of diabetic complicati ons in the eyes. I recommened they follow up with their PCP/endocr inologist for continue sugar evaluation /managemen t. Also discussed importance of cardiovasc ular risk reduction. Call with changing/f candelariashannongomez connelly. [id number] JERRY ROSENTHAL APRN ENDOCRINO LOGY [address] [place] [address] 08/03/2021 11:35:06 08/11/2021 14:09:26 Multiple complications due to type 2 diabetes mellitus 717551986 E11.8 Diabetes mellitus {{Type 1 Type 2*}}, {{uncontro lled* cont rolled}}. ? ? A1c in office today of 8.2%, up from 7.0%, 11/10/20 ? ? Goal A1C by ADA criteria is less than 7%. Random blood glucose 175. Recommenda tions: -Discussed potential treatment options. Agreed on the following: -Adjust humulin R U-500. Inject 65-80u before breakfast, 105u before dinner, and 80-90u before bedtime snack. Take this insulin 20-30min before the meal. Make take 1/2 dose for 1/2 the carbs.-Thi s patient requires a therapeuti c CGM. This patient has diabetes mellitus {{type 1 type 2*}}; is using a home blood glucose monitor and performing 4 or more tests per day; is on multiple daily insulin injections ; and requires frequent adjustment s by the patient on the basis of therapeuti c CGM testing results.- Patient is instructed to restrict {{his* her [...] } eye exam. (Dr. Flowers) - Patient is {{up to date on* needs} } urine testing for microalbum in. (ARB); Orders placed. - Patient verbalized understand ing of treatment plan. All questions answered. -Last labs on 02/09/21 BUN 11 Creatinine 0.60 GFR 135 AST 26 ALT 19 MACR positive (249) 07/16/20 Hyperlipidemia 86466242 E78.5 Goal LDL is under 100 mg/dl. Last LDL: 75 on 08/12/20Tri glycerides : 235Continu e pravastati n as prescribed per PCP.Contin ue dietary changes as recommende d. Essential hypertension 78321859 I10 Goal B.P is less than 140/90 mmHg. Continue current anti-hyper tensive medication s as appropriat e per patient? s PCP. Renal diso rder due to type 2 diabetes mellitus 511511502 E11.22 MACR positive (249) on 07/16/20. Continue losartan therapy as ordered. [id number] MIQUEL HERRMANN MD [facility] [address] [place] [address] 04/28/2021 10:14:41 04/28/2021 12:09:14 Hypertensive disorder 86830098 I10 Hypertensi on is controlled . Continue current medication s Hyperlipidemia 22362549 E78.5 Continue pravastati n and a low-choles terol diet Chronic depression 44976 0009 F34.1 Stable. Continue fluoxetine Chronic ob structive pulmonary disease 83750622 J44.9 [facility]. I encouraged patient to follow-up with his pulmonolog ist soon Diabetic p eripheral neuropathy 713341800 E11.40 Patient has signed CSA and SILVINO is appropriat e Body mass index 40+ - severely obese 073530313 Z68.42 Continue weight loss efforts. Pneumonia 475392619 J18. 9 Patient had recent pneumonia we will check chest x-ray. He still has cough productive of discolored sputum. Doxycyclin e as directed. Bilateral rotator cuff tendinitis 9180506752 7732132 M67.813 I encouraged patient to see his orthopedic surgeon soon. Continue Tylenol as directed for discomfort . [id number] KARUNA ALDRIDGE MD UROLOGY [address] [place] [address] 05/19/2021 14:24:24 05/20/2021 08:40:14 Lichen sclerosus of penis 540845404 N48.0 Lower urin terence tract symptoms due to benign prostatic hypertrophy 6105377688 9101 N40.1 Screening for malignant neoplasm of prostate 061835800 Z12.5 Urinary incontinence 165 662738 R32 Morbid obesity 429073128 E66.01 Type 2 katie betes mellitus without complication 404217088 E11.9 [id number] KARUNA ALDRIDGE MD SURGERY SCHEDULE [address] [place] [address] 07/13/2021 11:43:00 07/13/2021 11:44:06 Lichen sclerosus of penis 483245396 N48.0 Lower urin terence tract symptoms due to benign prostatic hypertrophy 8120314090 9101 N40.1 Urinary incontinence 165 489941 R32 Morbid obesity 201759727 E66.01 Type 2 katie betes mellitus without complication 418646918 E11.9 [id number] MIQUEL HERRMANN MD [facility] [address] [place] [address] 07/28/2021 11:30:32 07/28/2021 12:06:14 Hyperlipidemia 02725253 E78.5 Hold pravastati n for now. Consider alternativ e to pravastati n if Dr. Cerna believes rash is related to pravastati n. Chronic dermatitis 76507 007 L30.9 Dermatitis of the lower legs which has a consistenc y of venous stasis dermatitis but could be drug reaction to pravastati n. Arrange referral to Dr. Cerna for further evaluation and his opinion. If Dr. Cerna feels like it is venous stasis dermatitis then will restart pravastati n. Administra tion of influenza vaccine 16881416 Z23 [id number] EZEKIEL TY PA-C DERMATOLO [address] [place] ,[address] [place] [address] 08/05/2021 13:35:11 08/05/2021 14:47:39 [facility] 99663039 L81.7 His legs are not swollen as would be expected with stasisHe stopped wearing compressio n stockings because his feet were no longer swelling, then noticed rash.Discu ssed benign diagnosis, I do not believe there is any relation to pravastati n and am OK with him restarting this medication .Non-pruri tic, recommend restart compressio n stockings Inflamed s eborrheic keratosis 011763705 L82.0 LN x 1 After care allie fernandez provided Surgical s ite reaction 234596194 T81.9XXA s/p Left shoulder rotator cuff repair with Dr. Kuo in [facility] in November. He is still having pain in the area. There is no evidence of cellulitis or acute contact dermatitis . He failed tx with triamcinol one 0.1% BID for several weeks. His surgeon suspects an allergic reaction to subepiderm al sutures, discussed with him may take 1 year to dissolve. I recommende d he continue post op care with Dr. Kuo [id number] [address] [place] [address] 08/18/2021 10:15:13 08/18/2021 11:39:01 Administration of pneumococcal vaccine 72880146 Z23 [id number] JERRY ROSENTHAL APRN ENDOCRINO LOGY [address] [place] [address] 10/09/2021 09:08:20 10/09/2021 09:59:25 Multiple complications due to type 2 diabetes mellitus 820353015 E11.8 Diabetes mellitus {{Type 1 Type 2*}}, {{uncontro lled* cont rolled}}. ? ? A1c in office today of 9.2%, up from 8.2%, 08/03/21. ? ? Goal A1C by ADA criteria is less than 7%. Random blood glucose 355. Recommenda tions: -Discussed potential treatment options. Discussed importance of consistenc y with diet timing and meds. Agreed on the following: -Adjust humulin R U-500. Inject 65u before breakfast, 80u before dinner, and 100u before bedtime snack. Take this insulin 20-30min before the meal. Make take 1/2 dose for 1/2 the carbs.-Pt is being trained on dexcom today. Advised him to bring in global regulatory affairs manager in 2 weeks for download and further adjustment s to insulin regimen.- Patient is instructed to restrict {{his* her [...] } eye exam. (Dr. Flowers) - Patient is {{up to date on* needs} } urine testing for microalbum in. (ARB); Orders placed. - Patient verbalized understand ing of treatment plan. All questions answered. -Last labs on 02/09/21 BUN 11 Creatinine 0.60 GFR 135 AST 26 ALT 19 MACR positive (249) 07/16/20 Hyperlipidemia 56983055 E78.5 Goal LDL is under 100 mg/dl. Last LDL: 75 on 08/12/20Tri glycerides : 235Pt discontinu ed pravastati n d/t rash. Has upcoming appt with PCP to discuss alternativ es.Continu e dietary changes as recommende d. Essential hypertension 17151481 I10 Goal B.P is less than 140/90 mmHg. Continue current anti-hyper tensive medication s as appropriat e per patient? s PCP. Renal diso rder due to type 2 diabetes mellitus 090883733 E11.22 MACR positive (249) on 07/16/20. Continue losartan therapy as ordered. [id number] MIQUEL HERRMANN MD [facility] [address] [place] [address] 10/26/2021 12:55:48 10/26/2021 13:43:55 Adult health examination 853367291 Z00.00 Hypertensive disorder 38 421125 I10 Hypertensi on is controlled . Continue current medication s Hyperlipidemia 12751704 E78.5 Consider Zetia if his LDL remains elevated since he had rash with pravastati n. Chronic depression 80838 0009 F34.1 Stable. Continue fluoxetine Chronic ob structive pulmonary disease 47359552 J44.9 [facility]. Diabetic p eripheral neuropathy 051314342 E11.40 Patient has signed CSA and SILVINO is appropriat e. Stable. Continue gabapentin Body mass index 40+ - severely obese 407100209 Z68.42 Continue weight loss efforts. Bilateral rotator cuff tendinitis 2630113692 3530591 M67.813 Continue plan per orthopedis t Decreased hearing 488556 001 H91.90 Arrange audiology referral Screening for malignant neoplasm of prostate 470482895 Z12.5 Patient will share PSA results with Dr. Leung Chronic low back pain 27 8369431 M54.50 Tylenol as directed for discomfort . Heat and ice to area. Lower urin terence tract symptoms due to benign prostatic hypertrophy 5218845308 9101 N40.1 Continue tamsulosin and keep follow-up next week with Dr. Leung [id number] JERRY ROSENTHAL APRN ENDOCRINO LOGY [address] [place] [address] 04/21/2022 13:09:02 04/21/2022 14:14:22 Multiple complications due to type 2 diabetes mellitus 101705663 E11.8 Diabetes mellitus {{Type 1 Type 2*}}, {{uncontro lled* cont rolled}}. ? ? A1c in office today of 7.6%, down from 9.2%, 10/09/21. ? ? Goal A1C by ADA criteria is less than 7%. Random blood glucose 267. Recommenda tions: -Congratul ated pt on improvemen t in A1c! unable to connect to dexcom in office today. Connection code and instructio ns provided. Pt will notify us once he is connected. Agreed on the following: -Adjust humulin R U-500. Inject 60-70u before breakfast, 60-70u before dinner. Take this insulin 20-30min before the meal.-Furt her recommenda tions once dexcom readings reviewed.- Patient is instructed to restrict {{his* her [...] D eclined Pr eviously referred*} }; MNT 2017; - Encouraged to be active (30 minutes [...] } eye exam. (Dr. Flowers) - Patient is {{up to date on* needs} } urine testing for microalbum in. (ARB); Orders placed. - Patient verbalized understand ing of treatment plan. All questions answered. -Last labs on 04/28/21 BUN 20 Creatinine 0.81 GFR 92 AST 20 ALT 21 MACR positive (249) 07/16/20 Hyperlipidemia 33150763 E78.5 Goal LDL is under 100 mg/dl. Last LDL: 75 on 08/12/20Tri glycerides : 235Pt discontinu ed pravastati n d/t rash. Has upcoming appt with PCP to discuss alternativ es.Continu e dietary changes as recommende d. Essential hypertension 20844935 I10 Goal B.P is less than 140/90 mmHg. Continue current anti-hyper tensive medication s as appropriat e per patient? s PCP. Renal diso rder due to type 2 diabetes mellitus 188165242 E11.22 MACR positive (249) on 07/16/20. Continue losartan therapy as ordered. [id number] MIQUEL HERRMANN MD [facility] [address] [place] [address] 05/11/2022 14:35:47 05/11/2022 15:10:55 Hypertensive disorder 91959333 I10 Hypertensi on is controlled . Continue current medication s Hyperlipidemia 82212828 E78.5 Discontinu e Zetia. Patient would like to restart pravastati n. He thought it was causing a rash but he does have venous stasis dermatitis which did not change after he went off pravastati n. Chronic depression 80086 0009 F34.1 Stable. Continue fluoxetine Chronic ob structive pulmonary disease 91188304 J44.9 Stable. Continue active management per [place] pulmonolog ist. Diabetic p eripheral neuropathy 644684221 E11.40 Patient has signed CSA and SILVINO is appropriat e. Stable. Continue gabapentin Body mass index 40+ - severely obese 352020824 Z68.42 Continue weight loss efforts. Chronic low back pain 27 3068080 M54.50 Stable. Continue Tylenol as directed Lower urin terence tract symptoms due to benign prostatic hypertrophy 1985415602 9101 N40.[address]. Continue t[address] Leung Lichen scl erosus of penis 589083587 N48.0 Continue current treatment and follow-up with urologist [id number] MIQUEL HERRMANN MD [facility] [address] [place] [address] 06/08/2022 15:20:43 06/08/2022 15:47:[address] segment elevation myocardial infarction 3314543685 71356 Z86.79 Stable. Continue Brilinta, bisoprolol and active management per his cardiologi st, Dr. Sofia. He is doing remarkably well after his recent OR. Normal grief reaction 27 6320079 F43.20 I expressed my condolence s to Mr. Aleln and his daughter on the of his mother-in- law. 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 I discussed the importance of sugar control for reducing risk of diabetic complicati ons in the eyes. I recommened they follow up with their PCP/endocr inologist for continue sugar evaluation /managemen t. Also discussed importance of cardiovasc ular risk reduction. Call with changing/f luxuating vision.1 year and prn Pseudophakia 60218450 Z9 6.1 [id number] JERRY ROSENTHAL APRN ENDOCRINO LOGY [address] [place] [address] 08/18/2022 14:21:01 08/18/2022 15:34:18 Multiple complications due to type 2 diabetes mellitus 758458595 E11.8 Diabetes mellitus {{Type 1 Type 2*}}, {{uncontro lled* cont rolled}}. ? ? A1c in office today of 7.9%, up from 7.6%, 04/21/22. ? ? Goal A1C by ADA criteria is less than 7%. Random blood glucose 233. Recommenda tions: -Unable to connect to dexcom in office today. Connection code and instructio ns provided. Pt will notify us once he is connected. Discussed potential treatment options. Agreed on the following: -Adjust humulin R U-500. Inject 55u before breakfast, 55u before dinner. Take this insulin 20-30min before the meal.-Furt her recommenda tions once dexcom readings reviewed.- Patient is instructed to restrict {{his* her [...] D eclined Pr eviously referred*} }; MNT 2017; - Encouraged to be active (30 minutes [...] } eye exam. (Dr. Flowers) - Patient is {{up to date on* needs} } urine testing for microalbum in. (ARB); Orders placed. - Patient verbalized understand ing of treatment plan. All questions answered. -Last labs on 05/11/22 BUN 19 Creatinine 1.19 GFR 66 AST 18 ALT 20 MACR positive (303) Hyperlipidemia 40863087 E78.5 Goal LDL is under 100 mg/dl. Last LDL: 131 on 05/11/22Tr iglyceride s: 243Continu e atorvastat in per PCP/ cardiology .Continue dietary changes as recommende d. Essential hypertension 66163240 I10 Goal B.P is less than 140/90 mmHg. Continue current anti-hyper tensive medication s as appropriat e per patient? s PCP. Renal diso rder due to type 2 diabetes mellitus 127809558 E11.22 MACR positive (303) on 04/21/22 Continue losartan therapy as ordered. [id number] YANNI COBIAN PA-C [facility] [address] [place] [address] 09/06/2022 14:05:42 09/06/2022 14:47:23 Acute left otitis media 417986234 H66.92 ? perforatio n. Patient to finish out his antibiotic s both oral and drops. Avoid Q-tips. ENT referral [id number] CHA BAIG, [facility] [address] [place] [address] 09/09/2022 09:40:11 09/09/2022 10:35:18 Neck pain 45570354 M54.2 Flareup of neck pain about 1 week ago. Patient is status post ACDF over a decade ago. Not sure what level was done. Check cervical x-ray. Refer for physical therapy. Patient may continue Tylenol and Voltaren gel. He may also continue the over-the-c ounter lidocaine patches. Recommend gentle ranging of the neck. He will let me know if he is not improving with physical therapy. Cervical radiculopathy 52739334 M54.12 Left cervical radiculopa thy. If patient is not improving, consider steroid pack. I will try to hold off on this given his diabetes. Patient is currently on gabapentin . Continue Tylenol, lidocaine patches, and Voltaren gel. Add cyclobenza nai at bedtime. Physical therapy referral. Patient will let me know if he is not improving. If pain persists, he will need further imaging studies. [id number] EZEKIEL TY PA-C DERMATOLO [facility] [address] [place] [address] 10/26/2022 11:07:27 10/26/2022 11:36:24 Patient advised about exposure to the sun 602590985 Z71.89 Counseled on sun protective clothing/h ats and daily UV protection with otc broad-spec trum SPF 30+ on exposed areas. Regular self-skin exams recommende d. Pt encouraged to RTC with any new/changi ng lesions. Lentiginosis 432129992 L 81.4 Benign reassuranc e Raised loly orrheic keratosis 3506943609 98445 L82.1 Benign reassuranc e Sebaceous hyperplasia 23 0074573 L21.8 Benign reassuranc e Hemangioma 702558071 D18 .00 Benign reassuranc e Neurofibroma 966613737 D 36.10 Benign reassuranc eAsx [id number] MD ALBER BARNHART [facility] [address] [place] [address] 10/28/2022 15:31:17 10/28/2022 16:45:31 Blood in ear canal 201997027 H92.23 10/28/22- Normal otoscopic appearance s. Both TM's intact. Deviated nasal septum 12 1193901 J34.2 -To the right. Coronary arteriosclerosis 49770424 I25.10 Moderate p ersistent asthma 892373927 J45.40 Type 1 katie betes mellitus 04824136 Z79.4 [id number] MIQUEL HERRMANN MD [facility] [address] [place] [address] 11/08/2022 13:53:32 11/08/2022 15:29:43 Adult health examination 141689834 Z00.00 Screening for malignant neoplasm of colon 099838009 Z12.11 Colonoscop y 09/04/19 revealed diverticul osis. Repeat in 2029. Screening for malignant neoplasm of prostate 499962183 Z12.5 Patient will share PSA results with Dr. Leung Hepatitis C screening 41 4318126 Z11.59 Has patient ever had Hep C screening? {{YES* NO} } Hypertensive disorder 38 122432 I10 Hypertensi on is controlled . Continue valsartan/ HCTZ. Hyperlipidemia 94769239 E78.5 Discontinu e Zetia. Patient would like to restart pravastati n. He thought it was causing a rash but he does have venous stasis dermatitis which did not change after he went off pravastati n. Chronic ob structive pulmonary disease 60487047 J44.9 Stable. Continue active management per [place] pulmonolog ist. Diabetic p eripheral neuropathy 711354867 E11.40 Patient has signed CSA and SILVINO is appropriat e. Stable. Continue gabapentin Body mass index 40+ - severely obese 134615890 Z68.42 Continue weight loss efforts. Chronic low back pain 27 4731229 M54.50 Stable. Continue Tylenol as directed Lower urin terence tract symptoms due to benign prostatic hypertrophy 3529898821 9101 N40.1 [address]able. Continue t[address] Leung Lichen scl erosus of penis 158969641 N48.0 Continue current treatment and follow-up with urologist Recurrent major depression 14362553 F33.9 Stable. Continue fluoxetine Morbid obesity 626750499 E66.01 Continue weight loss efforts. Fatigue 22623515 R53.83 I explained that fatigue is multifacto rial and he has several reasons to feel fatigued including morbid obesity, being sedentary, COPD and uncontroll ed diabetes. He also has depression which can contribute . Coronary arteriosclerosis 92672197 I25.10 Stable. Continue active management per cardiologi st [id number] JERRY ROSENTHAL APRN END[facility]CR[facility] [address] [place] [address] 12/22/2022 14:17:24 12/22/2022 15:13:00 Multiple complications due to type 2 diabetes mellitus 546583779 E11.8 ? ? A1c in office today of 8.7%, up from 7.9%, 08/18/22. ? ? Goal A1C by ADA criteria is less than 7%. Random blood glucose 180. Recommenda tions: -Unable to connect to dexcom again in office today. Connection code and instructio ns provided. We will have the dexcom ehr trainer reach out to him. Pt will notify us once he is connected. Discussed potential treatment options. He is interested in insulin pump. Met with [place] maitre d 11/2022. We will send PA for tandem tslim. Agreed on the following: -Increase humulin R U-500. Inject 75u before breakfast, 75u before dinner, and up to 40*u at bedtime. Take this insulin 20-30min before the meal.-Furt her recommenda tions once dexcom readings reviewed.- Patient is instructed to restrict {{his* her [...] } eye exam. (Dr. Flowers) - Patient is {{up to date on* needs} } urine testing for microalbum in. (ARB); Orders placed. - Patient verbalized understand ing of treatment plan. All questions answered. -Last labs on 11/08/22 BUN 20 Creatinine 1.17 GFR 68 AST 19 ALT 19TSH 1.320MACR positive (303) Hyperlipidemia 07368600 E78.5 Goal LDL is under 100 mg/dl. Last LDL: 38 on 11/08/22Tri glycerides : 105Continu e atorvastat in per PCP/ cardiology .Continue dietary changes as recommende d. Essential hypertension 85240509 I10 Goal B.P is less than 140/90 mmHg. Continue current anti-hyper tensive medication s as appropriat e per patient? s PCP. Renal diso rder due to type 2 diabetes mellitus 639068103 E11.22 MACR positive (303) on 04/21/22 Continue losartan therapy as ordered. [id number] JERRY ROSENTHAL APRN ENDOCRINO [facility] [address] [place] [address] 03/02/2023 12:41:53 03/02/2023 14:49:00 Multiple complications due to type 2 diabetes mellitus 620304999 E11.8 ? ? A1c in office today of 8.3%, down from 8.7%, 12/22/22. ? ? Goal A1C by ADA criteria is less than 7%. Random blood glucose 279. Recommenda tions: -Pt is interested in ozempic. Previously took victoza, stopped d/t nausea/vom iting. Mother had pancreatic cancer. Discussed that ozempic may increase pancreatic cancer cells. Pt verbalized understand ing and would like to try the ozempic. Will upgrade to dexcom G7. Discussed use of skin-tac. Agreed on the following: -Continue humulin R U-500. Inject 70u before breakfast, 70u before dinner, and up to 50*u at bedtime. Take this insulin 20-30min before the meal.-Star t ozempic. Inject 0.25mg once weekly for 4 weeks, then increase to 0.5mg once weekly thereafter . Free medical sample provided.G LP-1 therapy benefits and risks were discussed in length with patient.Be nefits include: lowering appetite, delaying gastric emptying, limiting hepatic glucose output, weight loss, improving insulin release at the time of a meal.Commo n side effects are nausea and vomiting, which are often self-limit ed with limiting portion size and meal fat content.Ri sk of pancreatit is was discussed and for what symptoms to go to the ER. We think the benefits of this medication outweigh the risk of pancreatit is. Questionab le concern of stimulatin g pancreatic cancer to grow is being evaluated at this time.In rats, therapy have been shown to cause thyroid C-cell tumors or hyperplasi a. At this time it is unclear if GLP1 therapy increases the risk of thyroid cancer in humans, and currently we think the benefits of this medication outweigh the risk.There is a potential risk of retinopath y which may be temporary. - Patient is instructed to restrict {{his* [...] D eclined Pr eviously referred*} }; MNT 2017; - Encouraged to be active (30 minutes [...] } eye exam. (Dr. Flowers) - Patient is {{up to date on* needs} } urine testing for microalbum in. (ARB); Orders placed. - Patient verbalized understand ing of treatment plan. All questions answered. -Last labs on 11/08/22 BUN 20 Creatinine 1.17 GFR 68 AST 19 ALT 19TSH 1.320MACR positive (303) Hyperlipidemia 44098437 E78.5 Goal LDL is under 100 mg/dl. Last LDL: 38 on 11/08/22Tri glycerides : 105Continu e atorvastat in per PCP/ cardiology .Continue dietary changes as recommende d. Essential hypertension 07106481 I10 Goal B.P is less than 140/90 mmHg.Jose Angel nue current anti-hyper tensive medication s as appropriat e per patient? s PCP. Renal diso rder due to type 2 diabetes mellitus 105604479 E11.22 MACR positive (303) on 04/21/22 Continue losartan therapy as ordered. [id number] TONYA BOLAND MD OPHTHALMO LOGY [address] [address] 03/01/2023 12:25:20 03/01/2023 13:39:55 Blepharitis 62711888 H01.00A H01.00B - discussed likely allergic etiology- Pataday, ATs, lid scrubs daily- start TobraDex TID for up to 2 weeks, then stop RTC as planned with Dr. Stoll, sooner as needed [id number] JERRY ROSENTHAL APRN ENDOCRINO LOG[facility] [address] [place] [address] 08/02/2023 10:57:43 08/02/2023 13:41:57 Multiple complications due to type 2 diabetes mellitus 153145391 E11.8 ? ? A1c in office today of 7.3%, from 8.3%, 03/02/23. ? ? Goal A1C by ADA criteria is less than 7%. Random blood glucose 310. Recommenda tions:-Con tinous glucose monitor downloaded . Reports reviewed and discussed with patient.-Jacob garcia ed pt on irvingmen t in A1c! Agreed on the following: -Continue humulin R U-500. Inject 70u before breakfast, 70u before dinner. Take this insulin 20-30min before the meal.-Incr ease ozempic. Inject 1mg once weekly. - Patient is instructed to [...] } eye exam. (Dr. Flowers) - Patient is {{up to date on* needs} } urine testing for microalbum in. (ARB); Orders placed. - Patient verbalized understand ing of treatment plan. All questions answered. -Last labs on 02/20/23 BUN 20 Creatinine 1.00 GFR 74 AST 35 ALT 34TSH 1.320MACR positive (303) Hyperlipidemia 08085086 E78.5 Goal LDL is under 100 mg/dl. Last LDL: 38 on 11/08/22Tri glycerides : 105Continu e atorvastat in per PCP/ cardiology .Continue dietary changes as recommende d. Essential hypertension 04364579 I10 Goal B.P is less than 140/90 mmHg.Jose Angel nue current anti-hyper tensive medication s as appropriat e per patient? s PCP. Renal diso rder due to type 2 diabetes mellitus 737574566 E11.22 MACR positive (303) on 04/21/22 Continue losartan therapy as ordered. [id number] JERRY ROSENTHAL APRN ENDOCRINO [facility]Y [address] [place] [address] 11/30/2023 15:03:26 12/01/2023 08:13:13 Multiple complications due to type 2 diabetes mellitus 310563068 E11.8 ? ? A1c in office today of 6.9%, from 7.3%, 08/02/23. ? ? Goal A1C by ADA criteria is less than 7%. Random blood glucose 131. Recommenda tions:-Con tinous glucose monitor downloaded . Reports reviewed and discussed with patient.-C ongratulat ed pt on improvemen t in A1c! Discussed switching to basal-bolu s regimen. Agreed on the following for now: -Adjust humulin R U-500. Inject 30u in the AM and 40u before dinner. Take this insulin 20-30min before the meal.-Incr ease ozempic. Inject 2mg once weekly. - Patient [...] D eclined Pr eviously referred*} }; MNT 2017; - Encouraged to be active (30 minutes [...] } eye exam. (Dr. Flowers) - Patient is {{up to date on* needs} } urine testing for microalbum in. (ARB); Orders placed. - Patient verbalized understand ing of treatment plan. All questions answered. -Last labs on 02/20/23 BUN 20 Creatinine 1.00 GFR 74 AST 35 ALT 34TSH 1.320MACR positive (303) Hyperlipidemia 46656013 E78.5 Goal LDL is under 100 mg/dl. Last LDL: 38 on 11/08/22Tri glycerides : 105Continu e atorvastat in per PCP/ cardiology .Continue dietary changes as recommende d. Essential hypertension 16371631 I10 Goal B.P is less than 140/90 mmHg.Jose Angel nue current anti-hyper tensive medication s as appropriat e per patient? s PCP. Renal diso rder due to type 2 diabetes mellitus 273631483 E11.22 MACR positive (303) on 04/21/22 Continue losartan therapy as ordered. [id number] ELIZABETH CERNA, DERMATOLO [facility] [address] [place] [address] 03/08/2024 09:50:16 03/08/2024 11:06:10 Lentiginosis 140955279 L81.4 Benign reassuranc e recommende d sun protective clothing and a mineral based sunscreen 30 SPF or higher lotion OTC daily Raised loly orrheic keratosis 6173070563 99887 L82.1 Benign reassuranc e Sebaceous hyperplasia 23 6252047 L21.8 Benign reassuranc e Hemangioma 082903190 D18 .00 Benign reassuranc e Neurofibroma 497424287 D 36.10 Benign reassuranc ept stated spot was bothersome discussed removal today pt declined and will re-evaluat e at next visit. Senile purpura 75103754 D69.2 Benign Reassuranc e Inflamed s eborrheic keratosis 369145602 L82.[address] per patients request: Education then treated with LN; right upper cheek x1, left samaritan q5ggzpepl, bothersome LN at pt requestpt tolerated well advised pt what to expect with freezing [id number] MIQUEL STOLL MD [facility]THALMO [facility] [address] [address] 03/08/2024 10:58:06 03/08/2024 14:50:23 Type 2 diabetes mellitus without complication 647797137 E11.9 no retinopath y ou - (previousl y seen ou )I discussed diabetes with this patient. I discussed the importance of sugar control for reducing risk of diabetic complicati ons in the eyes. I recommende d they follow up with their PCP/endocr inologist for continue sugar evaluation /managemen t. Also discussed importance of cardiovasc ular risk reduction. Call with changing/f luxuating vision.1 year and pnr Pseudophakia 74655518 Z9 6.1 stable, obs [id number] MICHEAL HILARIO MD [place] [facility] [address] [place] [address] 06/18/2024 14:08:31 06/18/2024 16:06:41 Deviated nasal septum 193624955 J34.2 Coronary arteriosclerosis 36749126 I25.10 Moderate p ersistent asthma 759010346 J45.40 Type 1 katie betes mellitus 00306911 Z79.4 Laryngopha ryngeal reflux 787395061 K21.9 on a regimen of Pantoprazo le Chronic hoarseness 51008 99680 105 R49.0 06/18/24 Laryngeal Fiberoptic exam = Slight presbylary nx, glottic closure is not tight; no evidence of vocal nodules or polyps and certainly no evidence of neoplasia 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 ? A1c in office today [...] 35 ALT 34TSH 1.320MACR positive (303) Hyperlipidemia 08754002 E78.5 Goal LDL is under 100 mg/dl. Last LDL: 38 on 11/08/22Tri glycerides : 105Continu e atorvastat in per PCP/ cardiology .Continue dietary changes as recommende d. Essential hypertension 12062392 I10 Goal B.P is less than 140/90 mmHg.Jose Angel nue current anti-hyper tensive medication s as appropriat e per patient? s PCP. Renal diso rder due to type 2 diabetes mellitus 441487043 E11.22 MACR positive (303) on 04/21/22 Continue losartan therapy as ordered. Health Concerns Section Related Observation LastModified by Organization Miguel mo LastModified Time None Recorded Concern Status LastModified by Organization Details LastModified Time None Recorded Advance Directives Directive N: Payers Encounter Date Sequence Insurance Name Policy Number Policy Lockett Covered Member ID Lockett Member ID Guarantor Name 11/30/2023 2 [place] 111 Miquel Newton Alejandro [id number] Miquel Newton Alejandro 11/30/2023 1 [place] Miquel Allen [id number] Miquel Allen 03/08/2024 2 [place] 111 Miquel Newton Alejandro [id number] Miquel Allen 03/08/2024 1 [place]el Allen [id number] Miquel Allen 03/08/2024 2 [place] 111 Miquel Newton Alejandro [id number] Miquel Allen 03/08/2024 1 [place] Miquel Allen [id number] Miquel Allen 06/18/2024 2 [place] 111 Miquel Newton Alejandro [id number] Miquel Allen 06/18/2024 1 [place] Miquel Allen [id number] Miquel Allen 08/23/2024 2 [place] 111 Miquel Newton Alejandro [id number] Miquel Allen 08/23/2024 1 [place] Miquel Allen [id number] Miquel Allen Notes Date Note Type Note Provider Name and Address Organization Details Recorded Time 11/30/2023 text/html Mr. Allen is a 68 year old male patient (accompanied by his daughter) with a past medical history significant for hypertension, hyperlipidemia, and uncontrolled type 2 diabetes complicated by peripheral diabetic neuropathy, who is seen at the office today for a follow up. At last visit, we increased ozempic. Patient reports improved compliance and denies any side effects. Using dexcom appropriately. G7 ordered at last visit. Fasting 16-24 hours. Eating 1 main meal per day. Taking insulin in AM when BG is high, but he is eating in the evening and not taking insulin with the meal. He has been titrating insulin frequently. Hx: Needs another left shoulder surgery 10/27, repair again (rotator cuff still torn, did not heal after last surgery on 11/24/20). UTT pravastatin d/t rash;Med hx: farxiga; metformin; victoza (nausea/vomiting) Current Treatment Regimen:Humulin R U-500 70*u acb only Ozempic 1mg* No recent episodes of hypoglycemia. Patient is able to recognize and treat appropriately. Diet: 1-2 meals per day- in the evening, some sweets after dinner Exercise: no regular exercise- retired-- knee pain- plans to start PT for balance, [facility] Review finger sticks: see scanned logs- DEXCOM- sent link to connect (again)Avg. 201SD 42TIR 31%Hypo 0% Duration: {{chronic* new onset}} Compliance: compliant with medications; compliant with follow-up visits; compliant with diet; compliant with home glucose monitoring; no side effects from medications Self Care: monitoring glucose daily; seeing eye doctor regularly; checking feet regularly;Last dilated eye exam: 03/01/23 Dr. Stoll- MNPDR Associated Symptoms: no weight gain; no dizziness; no sweats; no headaches; no confusion; no increased appetite; no increased urination; no calluses on feet; no SOB; no heart palpitations/racin g heart Reports:dry mouth (stable- worse at night); intermittent blurred vision (stable); numbness/burning/t ingling of feet worsened (stable- on neurontin per PCP); increased thirst (stable); 18lb weight loss since last visit; Chronic Complications:Diab etic retinopathy: {{Yes No*}}Diabeti c neuropathy: {{Yes* No}}Diabeti c nephropathy: {{Yes No*}}Hyperte nsion: {{Yes* No}}Hyperli pidemia: {{Yes* No}} JERRY ROSENTHAL, BOX OFFICE CLERK [address] [place], [address], [facility] 11/30/2023 16:15:39 03/08/2024 text/html Established Patient Presents for skin checkPatient states he has a couple places on his scalp and neck he'd like evaluated., Pt said the places on his scalp does itch but otherwise not bothersome. check spots over body Denies any other new or changing lesions. Feels well today. Denies family history of malignant melanoma. ELIZABETH CERNA DO [address] [place], [address], [facility] 03/08/2024 17:02:41 06/18/2024 text/html Miquel reports that he has been hoarse for the past several months. He has been on a regimen of Pantoprazole right before bed for his acid reflux. Miquel takes Claritin daily. MICHEAL HILARIO MD [address] [place], [address], [facility] 06/18/2024 17:38:11 08/23/2024 text/html Mr. Allen is a 69year [...] sensors are on back order. Currently using [employer] brand meter. Hx: Needs another left shoulder [...] weekly Review finger sticks: unable to download -g avg. 221 Duration: {{chronic* new onset}} Compliance: [...] {{Yes* No}}Hyperli pidemia: {{Yes* No}} JERRY ROSENTHAL, BOX OFFICE CLERK [address], [place], [address], [facility] 08/23/2024 12:18:59
--- OUTSIDE RECORDS SUMMARY | 2024-09-27 22:34 | XMS_ITS | Encounter Summary ---
Author Name [facility] Organization [facility] Address [address] [place] [address] Care Team Providers Care Bone Worker Name Role Phone ARMOND VERÓNICA Primary Care Provider Unavailabl e Insurance Providers: [...] PART A Feb 18, 2019 PART A [id number] GAEL ZAVALA PATIENT MEDICARE (WNR) MEDICARE (M) PART B Feb 18, 2019 PART B [id number] GAEL ZAVALA PATIENT MEDICARE (WNR) MEDICARE (M) PART B Feb 18, 2019 PART B [id number] GAEL ZAVALA PATIENT MEDICARE (WNR) MEDICARE (M) PART B Feb 18, 2019 PART B [id number] GAEL ZAVALA PATIENT MEDICARE (WNR) MEDICARE (M) PART A Jul 21, 1993 PART A [id number] [phone] [id number] GAEL ZAVALA PATIENT MEDICARE (WNR) MEDICARE (M) PART A Jul 21, 1993 PART A [id number] [facility] GAEL ZAVALA PATIENT MEDICARE (WNR) MEDICARE (M) PART A Jul 21, 1993 PART A [id number] [phone] GAEL ZAVALA PATIENT Selected Encounter This section includes the information on record at [place] for the Encounter. Date/Time Encounter Type Encounter Description Reason Pro vider Source IHE Encounter Template Text not used by [place]
--- OUTSIDE RECORDS SUMMARY | 2024-09-27 22:34 | XMS_ITS | Encounter Summary ---
Author Name [facility] [place] Organization [facility] [place] [facility] [place] Address [address] [place] [address] Care Team Providers Care Vamp Creaser Name Role Phone GUSTAVO SULLIVAN Primary Care Provider Unavailabl e Insurance Providers: [...] PART A Feb 18, 2019 PART A [id number] RR13 [id number] GAEL ZAVALA PATIENT MEDICARE (WNR) MEDICARE (M) PART B Feb 18, 2019 PART B [id number] GAEL ZAVALA PATIENT MEDICARE (WNR) MEDICARE (M) PART B Feb 18, 2019 PART B [id number] [phone] GAEL ZAVALA PATIENT MEDICARE (WNR) MEDICARE (M) PART B Feb 18, 2019 PART B [id number] GAEL ZAVALA PATIENT MEDICARE (WNR) MEDICARE (M) PART A Jul 21, 1993 PART A [id number] 36A GAEL ZAVALA PATIENT MEDICARE (WNR) MEDICARE (M) PART A Jul 21, 1993 PART A [id number] 36A GAEL ZAVALA PATIENT MEDICARE (WNR) MEDICARE (M) PART A Jul 21, 1993 PART A [id number] RR13 [phone] [id number] GAEL ZAVALA PATIENT Selected Encounter This section includes the information on record at [place] for the Encounter. Date/Time Encounter Type Encounter Description Reason Pro vider Source Dec 09, 2023 01:25 PM Outpatient Encounter ADMIN PAT ACTIVTIES (MASNONCT) IHE Encounter Template Text not used by [place] Plan of Treatment: Future Appointments (+ 6 months) and Future Tests (+/- 45 days) The Plan of Treatment section includes future care activities for the patient from all [place] treatmentfacilities. This section includes future appointments and [...] 29, 2023 02:30 PM AMBULATORY [facility]INE [facility] Jan 18, 2024 09:00 AM AM[facility]ULATORY - NONE [facility] Apr 19, 2024 10:00 AM AM[facility]ULATORY - MEDICINE [facility] Apr 19, 2024 11:27 AM [facility]ORY [facility] Social History: Smoking Status (Most current) [...] 23, 2022 02:30 PM VA-TOBACCO FORMER USER [facility] Tobacco Use History This section includes a history of the smoking, or tobacco-related health factors, that were collected on or before the date of the Encounter. The data comes from the [place] facility where the Encounter took place. Date/Time Smoking Status/Tobacco Use Comment F acility Nov 23, 2022 02:30 PM VA-TOBACCO QUIT 15 YRS OR MORE [facility] Oct 16, 2021 09:30 AM VA-TOBACCO FORMER USER [facility] Oct 16, 2021 09:30 AM VA-TOBACCO QUIT 15 YRS OR MORE [facility] Sep 11, 2020 11:00 AM VA-TOBACCO FORMER USER [facility] Sep 11, 2020 11:00 AM VA-TOBACCO QUIT 5 TO < 15 YRS [facility] May 07, 2019 02:08 PM VA-TOBACCO FORMER USER [facility] May 07, 2019 02:08 PM VA-TOBACCO QUIT 5 TO < 15 YRS [facility] Mar 12, 2010 09:51 AM V9 QUIT TOBACCO >1 2 MO & <7 YRS AGO [facility] Mar 12, 2010 09:51 AM V9 TOBACCO OFFERED [facility] Feb 16, 2008 01:45 PM V9 QUIT TOBACCO IN THE LAST 12 MONTHS [facility] Oct 06, 2006 08:18 AM TOBACCO OFFERRED P T MEDS (PROVIDER) [facility] Oct 06, 2006 08:18 AM V9 CURRENT TOBACCO USER [facility] Oct 06, 2006 08:18 AM V9 TOBACCO OFFERED [facility] Jul 01, 2006 02:16 PM V9 CURRENT TOBACCO USER 1ppd [facility] Jul 02, 2005 02:53 PM HF V9 CURRENT SMOKER 1ppd [facility] Encounter Notes: All associated encounter notes This section contains the clinical notes associated to the Encounter. Date/Time Encounter Note(s) Provider Source Dec 09, 2023 01:26 PM CAREGIVER CERTIFICATE: LOCAL TITLE: CSP [facility] PRIMARY CARE COLLABORATION STANDARD TITLE: CAREGIVER CERTIFICATE DATE OF NOTE: DEC 09, 2023@13:26 ENTRY DATE: DEC 09, 2023@13:27:02 AUTHOR: GIAN CRESPO COSIGNER: URGENCY: STATUS: COMPLETED As part of the Program of Comprehensive Assistance for Family Caregiver (PCAFC), the Caregiver Support Program (CSP) collaborates with the [facility]'s Primary Care Team to the maximum extent practicable. Primary Care Team means one or more medical office specialist who care for a patient based on the clinical needs of the patient. Primary Care Teams must include a [place] Primary Care Provider who is a physician, advanced practice nurse or a physician timber management assistant. The CSP is seeking input and/or sharing documentation such as comprehensive assessments or progress notes that discuss ADL needs and/or supervision, protection or instruction needs; or a treatment plan. Primary Care Team members are not responsible for determining eligibility for the PCAFC. Documentation for collaboration should be within twelve months from the valid application received date or reassessment date, as applicable. Name: MIQUEL ZAVALA Valid application received date or reassessment date, as applicable: Nov CSP staff collaborated (via email, phone, in-person) with the [facility] Primary Care Team and completed the following note based on information provided: Date of collaboration with Primary Care Team: Nov Name of provider: Dr. Gustavo Sullivan Specialty of provider: Primary Care CHRONIC OBSTRUCTIVE PULMONARY DISEASE 100% SC Active problems - Computerized Problem List is the source for the followin. CAD - Coronary artery disease s/p cath and stent 05/2022 2. Obstructive sleep apnea syndrome 3. Allergic rhinitis 4. Chronic obstructive lung disease 5. Hyperlipidemia 6. Insomnia 7. Chronic pain 8. Diabetic neuropathy 9. hypertension, essential 10. Diabetes Mellitus without mention of Complication, type II or unspecified ty 11. Simple obesity 12. Gastroesophageal reflux disease (SNOMED CT [id number]) 13. Severe persistent allergic asthma uncontrolled (SNOMED CT [id number]) 14. Depressive disorder Active Outpatient Medications (including Supplies): Active Outpatient Medications Status 1) ALBUTEROL 90MCG (CFC-F) 200D ORAL INHL INHALE 2 PUFFS ACTIVE BY MOUTH FOUR TIMES A DAY NEEDED FOR BREATHING 2) MONTELUKAST NA 10MG TAB TAKE ONE TABLET BY MOUTH AT ACTIVE BEDTIME FOR ASTHMA 3) PREDNISONE 20MG TAB TAKE TWO TABLETS BY MOUTH DAILY ACTIVE FOR LUNGS Active Non-VA Medications Status 1) Non-VA 14 MUSHROOM COMPLEX CAP/TAB MOUTH ACTIVE 2) Non-VA ACETAMINOPHEN 325MG TAB 650MG MOUTH DAILY ACTIVE NEEDED 3) Non-VA ALBUTEROL 3/IPRATROP 0.5MG/3ML INHL 3ML 1 AMP ACTIVE (3ML) NEBULIZER THREE TIMES A DAY 4) Non-VA AMLODIPINE BESYLATE 2.5MG TAB 2.5MG MOUTH ACTIVE DAILY NEEDED 5) Non-VA BISOPROLOL FUMARATE 5MG TAB 5MG MOUTH DAILY ACTIVE 6) Non-VA DIPHENHYDRAMINE CAP,ORAL MOUTH NEEDED ACTIVE 7) Non-VA DULOXETINE HCL 60MG EC CAP 60MG MOUTH DAILY ACTIVE 8) Non-VA EZETIMIBE 10MG TAB 10MG MOUTH EVERY EVENING ACTIVE 9) Non-VA FLUOXETINE HCL 20MG CAP 60MG MOUTH DAILY ACTIVE 10) Non-VA GABAPENTIN 400MG CAP 1200MG MOUTH THREE TIMES ACTIVE A DAY 11) Non-VA HCTZ 25MG/VALSARTAN 160MG TAB 1 TABLET MOUTH ACTIVE DAILY 12) Non-VA INSULIN CONC REG HUM 500 UNT/ML KWIKPEN ENTER ACTIVE DOSE IN UNITS UNDER THE SKIN THREE TIMES A DAY 13) Non-VA LIDOCAINE 5% PATCH SKIN ACTIVE 14) Non-VA LOPERAMIDE SUSP,ORAL MOUTH NEEDED ACTIVE 15) Non-VA MULTIVITAMIN/MINERALS THERAPEUT CAP/TAB 1 ACTIVE CAP(S)/TAB MOUTH DAILY 16) Non-VA TICAGRELOR 90MG TAB 90MG MOUTH TWICE A DAY ACTIVE 19 Total Medications Current treatment plan (to include timelines, frequency, and duration): Severe persistent asthma uncomplicated/allergic rhinitis unspecified-manageable on MDI's and meds/f/u pulm clinic and call if any problems. Any acute issues call or seek care. -[facility] [place] coronary artery w/o angina pectoris-stable for now/see HPI and managed by local cards and see med changes and additions. Keep us updated re local care. -htn-stable on meds locally-routine HM [facility] is able to understand the current treatment plan:* Yes has potential for improvement in functioning:* Yes [facility] has been referred and participated in rehabilitative services:* Yes Additional details: [facility] has been referred to and participated in rehabilitative services as clinically indicated. Caregiver is actively involved in the care of the [place]:* Yes Describe caregiver's involvement: CG is noted to attend appointments with . Caregiver is able to follow the current treatment plan:* Yes The care needs of the can be safely provided in a home setting:* Yes The is being recommended for institutional care:* No List the date/title of any documentation for above information: PC PROGRESS NOTE 11/23/2022 /tess/ LENA CRESPO LCSW CAREGIVER SPOT BILLING CLERK Signed: 12/09/2023 13:29 Receipt Acknowledged By: 12/09/2023 13:42 /tess/ IAM SULLIVAN M.D. PRIMARY CARE STAFF PHYSICIAN for GIAN BROWN [facility]
--- OUTSIDE RECORDS SUMMARY | 2024-09-27 22:34 | XMS_ITS ---
Author Name [facility] [place] [facility] [place] [facility] [place] Address [address] [place] [address] Care Team Providers Care Signal Fitter Name Role Phone LEAHYVERÓNICA DAY Primary Care [...] PART A Feb 18, 2019 PART A [id number] RR13 [id number] GAEL ZAVALA PATIENT MEDICARE (WNR) MEDICARE (M) PART B Feb 18, 2019 PART B [id number] GAEL ZAVALA PATIENT MEDICARE (WNR) MEDICARE (M) PART B Feb 18, 2019 PART B [id number] 36A GAEL ZAVALA PATIENT MEDICARE (WNR) MEDICARE (M) PART B Feb 18, 2019 PART B [id number] RR13 [phone] [id number] GAEL ZAVALA PATIENT MEDICARE (WNR) MEDICARE (M) PART A Jul 21, 1993 PART A [id number] 36A GAEL ZAVALA PATIENT MEDICARE (WNR) MEDICARE (M) PART A Jul 21, 1993 PART A [id number] 36A GAEL ZAVALA PATIENT MEDICARE (WNR) MEDICARE (M) PART A Jul 21, 1993 PART A [id number] RR13 [phone] [id number] GAEL ZAVALA PATIENT Selected Encounter This section includes the information on record at [place] for the Encounter. Date/Time Encounter Type Encounter Description Reason Pro vider Source Aug 08, 2024 03:34 PM Outpatient Encounter ADMIN PAT ACTIVTIES (MASNONCT) IHE Encounter Template Text not used by [place] Plan of Treatment: Future Appointments (+ 6 months) and Future Tests (+/- 45 days) The Plan of Treatment section includes future care activities for the patient from all [place] treatmentfacilities. This section includes future appointments and future orders which are active, pending or scheduled. Future Appointments This section includes appointments that were scheduled to occur 6 months from the date of the Encounter, up to a maximum of 20 appointments. The data comes from all [place] treatment facilities. Appointment Date/Time Appointment Type Appointme nt Facility Name Aug 09, 2024 09:30 AM AMBULATORY - MEDICINE [facility] Sep 06, 2024 02:00 PM AMBULATORY - MEDICINE [facility] Sep 07, 2024 08:30 AM AMBULATORY - MEDICINE [facility] October 29, 2024 02:00 PM AMBULATORY - NEUROLOGY [facility] Active, Pending, and Scheduled Orders This section includes a listing of several types of active, pending, and scheduled orders, including clinic medications orders, diagnostic test orders, procedure orders and consult orders; where the start date of the order is 45 days before the date of the Encounter or 45 days after the date of theEncounter. The data comes from all [place] treatment [facility]. Test Date/Time Test Type Test Details Facility Name Aug 31, 2024 10:11 AM Consult Order MED CPAP O UTPATIENT Cons [facility] [place] [facility] Social History: Smoking Status (Most current) and Tobacco Use (All prior to encounter date) This section includes the most current, and the historical, smoking and tobacco- related health factors from the [place] facility where the Encounter took place. Current Smoking Status This section includes the most current smoking, or tobacco-related health factor, from the [place] facility where the Encounter took place. Date/Time Current Smoking Status Comment Facil ity Dec 25, 1998 09:22 AM NON-TOBACCO USER [facility] Tobacco Use History This section includes a history of the smoking, or tobacco-related health factors, that were collected on or before the date of the Encounter. The data comes from the [place] facility where the Encounter took place. Date/Time Smoking Status/Tobacco Use Comment F acility Jan 17, 1998 06:10 PM NON-TOBACCO USER [facility] Encounter Notes: All associated encounter notes This section contains the clinical notes associated to the Encounter. Date/Time Encounter Note(s) Provider Source Aug 08, 2024 03:34 PM ADMINISTRATIVE NOT E: LOCAL TITLE: CCC: SCHEDULING ADMINISTRATION STANDARD TITLE: ADMINISTRATIVE NOTE DATE OF NOTE: AUG 08, 2024@15:34:55 ENTRY DATE: AUG 08, 2024@15:34:55 AUTHOR: GENE LUONG EXP COSIGNER: URGENCY: STATUS: COMPLETED Patient Demographics Patient Name: MIQUEL ZAVALA Patient Primary Patient Primary Address: [address] [place] [address] Patient : 1955 Patient Age: 69 Call Back Number: Caller/Recipient Relation to Patient: Other If Other Describe Relation to Patient: daughter Caller Name: MARIA DOLORES PRYOR CARYLMACO Scheduling Patient Expects Callback: Yes Administrative Administrative Note Reason: Other Administrative Note Comments: Pts daughter calling to cancel and r/s 08/14/24 appt for c-pap. Thank you IMPORTANT: This note was created by [facility] Clinical Contact Center staff. Please do not alert the staff member by adding them as a signer for future communications. Alerts are not monitored by this user. /tess/ GENE LUONG MSA Signed: 08/08/2024 15:34 Receipt Acknowledged By: 08/13/2024 12:57 /es/ Candie Wang Advanced Digital Sales Planner GENE LUONG-K[facility]E [facility]
--- OUTSIDE RECORDS SUMMARY | 2024-09-27 22:34 | XMS_ITS ---
Author Name [facility] [place] [facility] [place] Address [address] [place] [address] Care Team Providers Care Shank Sorter Name Role Phone LEAHYVERÓNICA DAY Primary Care [...] PART A Feb 18, 2019 PART A [id number] RR13 [id number] GAEL ZAVALA PATIENT MEDICARE (WNR) MEDICARE (M) PART B Feb 18, 2019 PART B [id number] GAEL ZAVALA PATIENT MEDICARE (WNR) MEDICARE (M) PART B Feb 18, 2019 PART B [id number] 36A GAEL ZAVALA PATIENT MEDICARE (WNR) MEDICARE (M) PART B Feb 18, 2019 PART B [id number] GAEL ZAVALA PATIENT MEDICARE (WNR) MEDICARE (M) PART A Jul 21, 1993 PART A [id number] 36A GAEL ZAVALA PATIENT MEDICARE (WNR) MEDICARE (M) PART A Jul 21, 1993 PART A [id number] 36A GAEL ZAAVLA PATIENT MEDICARE (WNR) MEDICARE (M) PART A Jul 21, 1993 PART A [id number] RR13 GAEL ZAVALA PATIENT Selected Encounter This section includes the information on record at [place] for the Encounter. Date/Time Encounter Type Encounter Description Reason Pro vider Source Jun 19, 2024 01:07 PM Outpatient Encounter ADMIN PAT ACTIVTIES (MASNONCT) IHE Encounter Template Text not used by [place] Plan of Treatment: Future Appointments (+ 6 months) and Future Tests (+/- 45 days) The Plan of Treatment section includes future care activities for the patient from all [place] treatmentfacilities. This section includes future appointments and future orders which are active, pending or scheduled. Future Appointments This section includes appointments that were scheduled to occur 6 months from the date of the Encounter, up to a maximum of 20 appointments. The data comes from all [place] treatment facilities. Appointment Date/Time Appointment Type Appointme nt Facility Name Jul 12, 2024 02:15 PM AMBULATORY - MEDICINE [facility] Aug 09, 2024 09:30 AM AMBULATORY - MEDICINE [facility] Sep 06, 2024 02:00 PM AMBULATORY - MEDICINE [facility] Sep 07, 2024 08:30 AM AMBULATORY - MEDICINE [facility] October 29, 2024 02:00 PM AMBULATORY - NEUROLOGY [facility] Social History: Smoking Status (Most current) and Tobacco Use (All prior to encounter date) This section includes the most current, and the historical, smoking and tobacco- related health factors from the [place] facility where the Encounter took place. Current Smoking Status This section includes the most current smoking, or tobacco-related health factor, from the [place] facility where the Encounter took place. Date/Time Current Smoking Status Dwight moss Dec 25, 1998 09:22 AM NON-TOBACCO USER [facility] Tobacco Use History This section includes a history of the smoking, or tobacco-related health factors, that were collected on or before the date of the Encounter. The data comes from the [place] facility where the Encounter took place. Date/Time Smoking Status/Tobacco Use Comment F acility Jan 17, 1998 06:10 PM NON-TOBACCO USER [facility] Encounter Notes: All associated encounter notes This section contains the clinical notes associated to the Encounter. Date/Time Encounter Note(s) Provider Source Jun 19, 2024 01:07 PM ADMINISTRATIVE NOT E: LOCAL TITLE: HEALTH BENEFITS ADMINISTRATIVE NOTE STANDARD TITLE: ADMINISTRATIVE NOTE DATE OF NOTE: JUN 19, 2024@13:07 ENTRY DATE: JUN 19, 2024@13:07:30 AUTHOR: SHIRA KINSEY EXP COSIGNER: URGENCY: STATUS: COMPLETED Eligible for enrollment: Yes has been enrolled and assigned to priority group 1 HBA enrolled May called stating that he has not received his VHIC from when he came to the office on March; [facility] states that it was mailed; verified address with and processed another one to be mailed. /tess/ SHIRA KINSEY ADVANCE MSA Signed: 06/19/2024 13:08 [facility]
--- OUTSIDE RECORDS SUMMARY | 2024-09-27 22:34 | XMS_ITS | Encounter Summary ---
Author Name [facility] [place] [facility] [place] Organization [facility] [place] Address [address] [place] [address] Care Team Providers Care Inspector Filter Tip Name Role Phone VERÓNICA LEAHY Primary Care [...] PART A Feb 18, 2019 PART A [id number] RR13 [id number] GAEL ZAVALA PATIENT MEDICARE (WNR) MEDICARE (M) PART B Feb 18, 2019 PART B [id number] RR13 GAEL ZAVALA PATIENT MEDICARE (WNR) MEDICARE (M) PART B Feb 18, 2019 PART B [id number] 36A GAEL ZAVALA PATIENT MEDICARE (WNR) MEDICARE (M) PART B Feb 18, 2019 PART B [id number] RR13 [id number] [id number] GAEL ZAVALA PATIENT MEDICARE (WNR) MEDICARE (M) PART A Jul 21, 1993 PART A [id number] 36A GAEL ZAVALA PATIENT MEDICARE (WNR) MEDICARE (M) PART A Jul 21, 1993 PART A [id number] 36A GAEL ZAVALA PATIENT MEDICARE (WNR) MEDICARE (M) PART A Jul 21, 1993 PART A [id number] RR13 GAEL ZAVALA PATIENT Selected Encounter This section includes the information on record at [place] for the Encounter. Date/Time Encounter Type Encounter Description Reason Pro vider Source Jan 02, 2024 04:58 PM Outpatient Encounter ADMIN PAT ACTIVTIES (MASNONCT) IHE Encounter Template Text not used by [place] Plan of Treatment: Future Appointments (+ 6 months) and Future Tests (+/- 45 days) The Plan of Treatment section includes future care activities for the patient from all [place] treatmentfacilities. This section includes future appointments and future orders which are active, pending or scheduled. Future Appointments This section includes appointments that were scheduled to occur 6 months from the date of the Encounter, up to a maximum of 20 appointments. The data comes from all [place] treatment facilities. Appointment Date/Time Appointment Type Appointme nt Facility Name Jan 18, 2024 09:00 [facility] Apr 19, 2024 10:00 AM AMBULATORY - MEDICINE [facility] Apr 19, 2024 11:27 AM [facility]UL[facility] - [facility]ICINE [facility] Social History: Smoking Status (Most current) and Tobacco Use (All prior to encounter date) This section includes the most current, and the historical, smoking and tobacco- related health factors from the [place] facility where the Encounter took place. Current Smoking Status This section includes the most current smoking, or tobacco-related health factor, from the [place] facility where the Encounter took place. Date/Time Current Smoking Status Dwight moss Nov 23, 2022 02:30 PM VA-TOBACCO FORMER USER [facility] Tobacco Use History This section includes a history of the smoking, or tobacco-related health factors, that were collected on or before the date of the Encounter. The data comes from the [place] facility where the Encounter took place. Date/Time Smoking Status/Tobacco Use Comment F acility Nov 23, 2022 02:30 PM VA-TOBACCO QUIT 15 YRS OR MORE [facility] Oct 16, 2021 09:30 AM VA-TOBACCO FORMER USER [facility] Oct 16, 2021 09:30 AM VA-TOBACCO QUIT 15 YRS OR MORE [facility] Sep 11, 2020 11:00 AM VA-TOBACCO FORMER USER [facility] Sep 11, 2020 11:00 AM VA-TOBACCO QUIT 5 TO < 15 YRS [facility] May 07, 2019 02:08 PM VA-TOBACCO FORMER USER [facility] May 07, 2019 02:08 PM VA-TOBACCO QUIT 5 TO < 15 YRS [facility] Mar 12, 2010 09:51 AM V9 QUIT TOBACCO >1 2 MO & <7 YRS AGO [facility] Mar 12, 2010 09:51 AM V9 TOBACCO OFFERED [facility] Feb 16, 2008 01:45 PM V9 QUIT TOBACCO IN THE LAST 12 MONTHS [facility] Oct 06, 2006 08:18 AM TOBACCO OFFERRED P T MEDS (PROVIDER) [facility] Oct 06, 2006 08:18 AM V9 CURRENT TOBACCO USER [facility] Oct 06, 2006 08:18 AM V9 TOBACCO OFFERED [facility] Jul 01, 2006 02:16 PM V9 CURRENT TOBACCO USER 1ppd [facility] Jul 02, 2005 02:53 PM HF V9 CURRENT SMOKER 1ppd [facility] Encounter Notes: All associated encounter notes This section contains the clinical notes associated to the Encounter. Date/Time Encounter Note(s) Provider Source Jan 02, 2024 04:59 PM CAREGIVER CERTIFIC ATE: LOCAL TITLE: CSP ADMINISTRATIVE NOTE STANDARD TITLE: CAREGIVER CERTIFICATE DATE OF NOTE: JAN 02, 2024@16:59 ENTRY DATE: JAN 02, 2024@16:59:08 AUTHOR: GIAN CRESPO COSIGNER: URGENCY: STATUS: COMPLETED CSP ADMINISTRATIVE NOTE Has ADDENDA Pit Tanner attempted to contact Caregiver (CG) at [phone] regarding outside medical records. left a message inviting contact be made. /orlin CRESPO LCSW CAREGIVER DENTAL SERVICE TECHNICIAN Signed: 01/02/2024 17:00 01/03/2024 ADDENDUM STATUS: COMPLETED Caregiver (CG) contacted and requested that she continue to work on obtaining medical records from [facility] and Dr. Sofia with [facility]. contacted [facility] and was instructed to send a fax request, which was faxed on this date. contacted [facility] and spoke with Rain who stated that she would fax the records immediately. /orlin CRESPO LCSW CAREGIVER DENTAL SERVICE TECHNICIAN Signed: 01/03/2024 15:11 GIAN CRESPO [facility]
--- OUTSIDE RECORDS SUMMARY | 2024-09-27 22:34 | XMS_ITS | Encounter Summary ---
Author Name [facility] [place] [facility] [place] [facility] [place] [facility] [place] Address [address] [place] [address] Care Team Providers Care Cutter Brake Lining Name Role Phone VERÓNICA LEAHY Primary Care [...] PART A Feb 18, 2019 PART A [id number] [id number] [phone] GAEL ZAVALA PATIENT MEDICARE (WNR) MEDICARE (M) PART B Feb 18, 2019 PART B [id number] GAEL ZAVALA PATIENT MEDICARE (WNR) MEDICARE (M) PART B Feb 18, 2019 PART B [id number] GAEL ZAVALA PATIENT MEDICARE (WNR) MEDICARE (M) PART B Feb 18, 2019 PART B [id number] GAEL ZAVALA PATIENT MEDICARE (WNR) MEDICARE (M) PART A Jul 21, 1993 PART A [id number] 36A GAEL ZAVALA PATIENT MEDICARE (WNR) MEDICARE (M) PART A Jul 21, 1993 PART A [id number] 36A GAEL ZAVALA PATIENT MEDICARE (WNR) MEDICARE (M) PART A Jul 21, 1993 PART A [id number] GAEL ZAVALA PATIENT Selected Encounter This section includes the information on record at [place] for the Encounter. Date/Time Encounter Type Encounter Description Reason Provider Source Sep 07, 2024 08:30 AM PH1 ASSMT&MGMT NQHP 11-20 TELEPHONE/MEDICIN E ICD-10-CM G47.33 Obstructive sleep apnea (adult) (pediatric) ROMAINE SKY [place] Encounter Template Text not used by [place] Assessments - Encounter Diagnoses This section includes the primary and secondary diagnoses documented for the Encounter. Date/Time Primary/Secondary Diagnosis Diagnosis Name Provider Source Sep 07, 2024 08:30 AM PRIMARY Obstructive sleep apnea (adult) (pediatric) ROMAINE SKY-JAVIER Bai [facility] Plan of Treatment: Future Appointments (+ 6 months) and Future Tests (+/- 45 days) The Plan of Treatment section includes future care activities for the patient from all [place] treatmentfacilities. This section includes future appointments and future orders which are active, pending or scheduled. Future Appointments This section includes appointments that were scheduled to occur 6 months from the date of the Encounter, up to a maximum of 20 appointments. The data comes from all [place] treatment facilities. Appointment Date/Time Appointment Type Appointme nt Facility Name October 29, 2024 02:00 PM AMBULATORY - NEUROLOGY [facility] Active, Pending, and Scheduled Orders This section includes a listing of several types of active, pending, and scheduled orders, including clinic medications orders, diagnostic test orders, procedure orders and consult orders; where the start date of the order is 45 days before the date of the Encounter or 45 days after the date of theEncounter. The data comes from all [place] treatment facilities. Test Date/Time Test Type Test Details Facility Name Aug 31, 2024 10:11 AM Consult Order MED CPAP O UTPATIENT Cons [facility] Social History: Smoking Status (Most current) and Tobacco Use (All prior to encounter date) This section includes the most current, and the historical, smoking and tobacco- related health factors from the [place] facility where the Encounter took place. Current Smoking Status This section includes the most current smoking, or tobacco-related health factor, from the [place] facility where the Encounter took place. Date/Time Current Smoking Status Comment Alondra huffy Dec 25, 1998 09:22 AM NON-TOBACCO USER [facility] Tobacco Use History This section includes a history of the smoking, or tobacco-related health factors, that were collected on or before the date of the Encounter. The data comes from the [place] facility where the Encounter took place. Date/Time Smoking Status/Tobacco Use Comment F ghada Jan 17, 1998 06:10 PM NON-TOBACCO USER [facility] Encounter Notes: All associated encounter notes This section contains the clinical notes associated to the Encounter. Date/Time Encounter Note(s) Provider Source Sep 07, 2024 08:49 AM RESPIRATORY THERAP Y NOTE: LOCAL TITLE: HOME OXYGEN FOLLOW-UP/ASSESSMENT NOTE STANDARD TITLE: RESPIRATORY THERAPY NOTE DATE OF NOTE: SEP 07, 2024@08:49 ENTRY DATE: SEP 07, 2024@08:49:35 AUTHOR: ROMAINE SKY COSIGNER: URGENCY: STATUS: COMPLETED Diagnoses: Obstructive sleep apnea syndrome ([facility] [id number]) - Obstructive sleep apnea (adult) (pediatric) (ICD-10-CM G47.33) (Primary) [place]'s stepdaughter/fire hydrant mechanic (Roya) left voicemail with home oxygen clinic stating had seen outside [place] entry level staff accountant, and his ECHO demonstrated a hole in his heart that causes his shortness of breath . She inquired to know if that would affect that status of his oxygen. Returned call to and spoke with both and Dw[place]yenne, informing that per his home oxygen assessment with SpO2 of 99%, home oxygen would not be indicated. Discussed upcoming CPAP appointment, and that being complaint with CPAP therapy would be essential to determine if oxygen is needed at night. and caregiver both voiced understanding that at this time oxygen prescription will be discontinued. Time spent guest relations executive: 15 mins /tess/ ROMAINE SKY Registered Pulmonary Function Tech Signed: 09/07/2024 08:50 ROMAINE SKY-JAVIERD [facility]
--- OUTSIDE RECORDS SUMMARY | 2024-09-27 22:34 | XMS_ITS | Encounter Summary ---
Author Name [facility] [place] [facility] [place] [facility] [place] Address [address] [place] [address] Care Team Providers Care Ornamental Painter Name Role Phone ARMOND VERÓNICA Primary Care [...] PART A Feb 18, 2019 PART A [id number] GAEL ZAVALA PATIENT MEDICARE (WNR) MEDICARE (M) PART B Feb 18, 2019 PART B [id number] GAEL ZAVALA PATIENT MEDICARE (WNR) MEDICARE (M) PART B Feb 18, 2019 PART B [id number] GAEL ZAVALA PATIENT MEDICARE (WNR) MEDICARE (M) PART B Feb 18, 2019 PART B [id number] GAEL ZAVALA PATIENT MEDICARE (WNR) MEDICARE (M) PART A Jul 21, 1993 PART A [id number] [id number] GAEL ZAVALA PATIENT MEDICARE (WNR) MEDICARE (M) PART A Jul 21, 1993 PART A [id number] [facility] GAEL ZAVALA PATIENT MEDICARE (WNR) MEDICARE (M) PART A Jul 21, 1993 PART A [id number] GAEL ZAVALA PATIENT Selected Encounter This section includes the information on record at [place] for the Encounter. Date/Time Encounter Type Encounter Description Reason Pro vider Source I[facility] Encounter Template Text not used by [place]
--- OUTSIDE RECORDS SUMMARY | 2024-09-27 22:34 | XMS_ITS | Data Portability ---
Author Organization [place] - [facility] - [place] & SABINE Hernandez ADMIN Address [address] [place] [id number] Care Team Providers Care Personal Investment Adviser Name Role Phone MONTEZMIQUEL Primary Care Provider [phone] Assessment Encounter Date Assessment Date Assessment LastModified by Organization Details LastModified Time 05/19/2022 05/19/2022 Patient may continue to use the topical preparation which seems to be helping him. He should avoid overly aggressive hygiene beneath the foreskin since this could irritate or even potentially injure the glans. Normal external hygiene recommended. He has a consultation pending at the [facility] with focus on best approach toward management and potential for any reconstructive options that might be available. [email or web address] Not available 05/19/2022 17:43:06 12/01/2022 12/01/2022 I see no acute issues currently active. Chronic findings are identified and outlined in the note and are relatively unchanged. The patient is on track to have circumcision and surgical treatment of this problem in the next couple weeks. He will keep me in the loop once this has been performed and we will be happy to provide some local care to reduce travel if it would benefit him and his other providers. [email or web address] Not available 12/01/2022 15:21:38 Plan of Treatment Reminders Order Date Submit Date Provider Last Modified By Organization Details Last Modified Time Details Appointments None recorded. Lab None recorded. Referral None recorded. Procedures None recorded. Surgeries None recorded. Imaging None recorded. Medication Orders nystatin- triamcino lone 100,000 unit/g-0. 1 % topical cream ASA Rao [facility], [address] [address] [place], [id number], 16:10:25 Patient TargetsNo targets recorded. Patient InstructionsNo instructions recorded. Reason for Referral None Reported. Problems Name Problem SNOMED Code Status Onset Date Resolution Date Notes Provider Name and Address Organization Details Recorded Time Balanitis 85651566 Active Lillie taylor, ALBER - [facility] - [place] & [place] 10:11:36 Lichen sclerosus 026586718 Active Lillieangelica Kennedy null, ALBER - [facility] - [facility] & [place] 10:11:55 Type 2 diabetes mellitus 78878699 Active Lillie taylor, ALBER - 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 Medical Equipment None Reported. Allergies Allergen ID Allergen Name Allergen Category Reaction Reaction Severity Criticality Documentation Date Start Date Code Code System Note Provider Name and Address Organization Details Recorded Time 70758 Non-stero idal anti-infl ammatory agent (product) medicatio n Not available Not available Not available 05/07/2022 57927 005 SNOMED Lillie Eulaliose null, ALBER - [facility] - [facility] & [place] 10:10:51 94334 Substance with sulfonami de structure and antibacte rial mechanism of action (substanc e) medicatio n Not available Not available Not available 05/07/2022 77830 8003 SNOMED Lillieangelica Tsaise null, ALBER - [facility] - [facility] & [place] 10:10:59 00694 aspirin medicatio n Not available Not available Not available 05/07/2022 1191 RxNorm ALBER Arzola [facility] & [place] 2 10:11:13 73574 Product containin g 3-hydroxy -3-methyl glutaryl- coenzyme A reductase inhibitor (product) medicatio n Not available Not available Not available 05/07/2022 65240 009 SNOMED ALBER Arzola LPCLARK [facility] & [place] 2 10:11:21 Medications Name Sig Start Date Stop Date Status Note LastModified by Organization Details LastModified Time cyclobenzap rine 10 mg tablet 12/01 completed Not Available Not Available Not Available amoxicillin 500 mg capsule 12/01 completed Not Available Not Available Not Available atorvastati n 40 mg tablet active Not Available Not Available Not Available gabapentin 600 mg tablet active Not Available Not Available Not Available doxycycline hyclate 100 mg capsule 12/01 completed Not Available Not Available Not Available azithromyci n 250 mg tablet TAKE 2 TABLETS BY MOUTH ON DAY 1, AND THEN TAKE 1 TABLET BY MOUTH ONCE A DAY ON DAY 2 THROUGH DAY 5 12/01 completed Not Available Not Available Not Available nystatin 100,000 unit/gram topical ointment APPLY TO THE AFFECTED AREA(S) BY TOPICAL ROUTE 2 TIMES PER DAY active Not Available Not Available No t Available valacyclovi r 1 gram tablet 12/01 completed Not Available Not Available Not Available hydrocodone 5 mg-acetamin ophen 325 mg tablet 12/01 completed Not Available Not Available Not Available prednisone 20 mg tablet TAKE 1 TABLET BY MOUTH TWICE DAILY active Not Available Not Available No t Available aspirin 81 mg tablet,rosemarie yed release active Not Available Not Available Not Available doxycycline monohydrate 100 mg tablet TAKE 1 TABLET BY MOUTH TWICE DAILY FOR 10 DAYS 05/19 completed Not Available Not Available Not Available tramadol 50 mg tablet TAKE 1 TO 2 TABLETS EVERY 4 TO 6 HOURS NEEDED FOR PAIN 12/01 completed Not Available Not Available Not Available bisoprolol fumarate 5 mg tablet active Not Available Not Available No t Available nystatin-tr iamcinolone 100,000 unit/gram-0 .1 % topical ointment active Not Available Not Available Not Available tamsulosin 0.4 mg capsule TAKE ONE CAPSULE BY MOUTH ONCE A DAY active Not Available Not Available No t Available amlodipine 10 mg tablet active Not Available Not Available Not Available benzonatate 100 mg capsule TAKE 1 CAPSULE BY MOUTH THREE TIMES DAILY NEEDED FOR COUGH 12/01 completed Not Available Not Available Not Available pantoprazol e 40 mg tablet,rosemarie yed release active Not Available Not Available Not Available tobramycin 0.3 % eye drops INSTILL 1 DROP INTO RIGHT EYE 4 TIMES DAILY FOR 4 DAYS THEN DISCONTIN UE active Not Available Not Available No t Available nystatin 100,000 unit/gram topical cream active Not Available Not Available Not Available lidocaine 5 % topical patch active Not Available Not Available Not Available promethazin e 25 mg tablet active Not Available Not Available Not Available nystatin-tr iamcinolone 100,000 unit/g-0.1 % topical cream APPLY TO THE AFFECTED AREA(S) BY TOPICAL ROUTE 2 TIMES PER DAY IN THEMORNIN G AND EVENING active Not Available Not Available No t Available pravastatin 20 mg tablet active Not Available Not Available Not Available lorazepam 1 mg tablet 12/01 completed Not Available Not Available Not Available methylpredn isolone 4 mg tablets in a dose pack TAKE BY MOUTH DIRECTED ON INSIDE OF PACKAGE 12/01 completed Not Available Not Available Not Available albuterol sulfate HFA 90 mcg/actuati on aerosol inhaler active Not Available Not Available Not Available losartan 100 mg tablet 12/01 completed Not Available Not Available Not Available fluoxetine 20 mg capsule active Not Available Not Available Not Available fluticasone propionate 50 mcg/actuati on nasal spray,suspe nsion USE 1 SPRAY(S) IN EACH NOSTRIL ONCE DAILY active Not Available Not Available No t Available amoxicillin 875 mg-potassiu m clavulanate 125 mg tablet TAKE 1 TABLET BY MOUTH EVERY 12 HOURS 12/01 completed Not Available Not Available Not Available oxycodone 5 mg tablet 12/01 completed Not Available Not Available Not Available ezetimibe 10 mg tablet active Not Available Not Available Not Available ciprofloxac in 0.3 %-dexametha sone 0.1 % ear drops,suspe nsion 12/01 completed Not Available Not Available Not Available duloxetine 20 mg capsule,del ayed release 12/01 completed Not Available Not Available Not Available duloxetine 30 mg capsule,del ayed release 12/01 completed Not Available Not Available Not Available duloxetine 60 mg capsule,del ayed release active Not Available Not Available Not Available Claritin active Not Available Not Avai lable Not Available Stilphostro l active Not Available Not Available Not Available Zetia active Not Available Not Availa ble Not Available valsartan 320 mg-hydrochl orothiazide 12.5 mg tablet 12/01 completed Not Available Not Available Not Available diclofenac 1 % topical gel active Not Available Not Available Not Available Xarelto 10 mg tablet 12/01 completed Not Available Not Available Not Available Brilinta 90 mg tablet TAKE ONE TABLET BY MOUTH TWICE DAILY active Not Available Not Available No t Available Advocate Pen Needle 31 gauge x 11/02 active Not Available Not Available Not Available Humulin R U-500 (Conc) Insulin Kwikpen 500 unit/mL (3 mL) subcutaneou s active Not Available Not Available Not Available Proair Digihaler active Not Available Not Available No t Available Vitals Date Recorded Body height Body mass index (BMI) Body weight Systolic blood pressure Diastolic blood pressure Provider Name and Address Organization Details Last Updated DateTime 12/01/2022 175.26 cm 50.4 kg/m2 328877 g 120 mm[Hg] 80 mm[Hg] Madelin Clemons [facility] & [place] 3 15:10:33 Date Recorded Body height Body mass index (BMI) Body weight Body temperature Systolic blood pressure Diastolic blood pressure Provider Name and Address Organization Details Last Updated DateTime 2 175.26 cm 48 kg/m2 033311. 24 g 97.7 [degF] 130 mm[Hg] 68 mm[Hg] Sobeida Martinez, FOLLOW UP SPECIALIST, [address] [facility], [place], [address], [facility] & [place] 2 15:53:33 Social History Question Answer Notes LastModified by Organizat ion Details LastModified Time Tobacco Smoking Status Former Smoker Lillie Marcia null, [facility] & [place] 05/07/2022 10:13:15 What Is Your Level Of Alcohol Consumption? None Information not available 05/07/2022 When Did You Quit Smoking? 11-15yearss kishan hernandeze Information not available 05/07/2022 Do You Use Any Illicit Or Recreational Drugs? No Information not available 05/07/2022 Sex: Male Functional Status None recorded. Mental Status None recorded. Family History Nothing Reported Notes:Mother-cancer( 0 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 Condition Response Diabetes Y Hyperlipidemia Y Depression Y Past Encounters Encounter ID Performer Location Encounter Start Date Encounter Closed Date Diagnosis/Indication Diagnosis SNOMED-CT Code Diagnosis ICD10 Code Diagnosis Note [id number] Fritz Leung MD [facility] [address] [place] [address] [place] [id number] 05/19/2022 15:31:19 05/19/2022 16:06:47 Phimosis 793873933 N47.1 Balanitis xerotica obliterans 648707052 N48.0 Lichen sclerosus 9449885 01 L90.0 Penile History of diabetes mellitus type 2 406498578 Z86.39 poorly controlled Morbid obesity 874164664 E66.01 [id number] Fritz Leung MD [facility] [address] [place] [address],[facility] [address] [place] [address] 12/01/2022 14:56:56 12/01/2022 15:17:36 Balanitis xerotica obliterans 848619073 N48.0 Lichen sclerosus 1381767 01 L90.0 Penile Phimosis 471692428 N47.1 Morbid obesity 002527124 E66.01 Type 2 katie betes mellitus 52196986 Z79.4 Health Concerns Section Related Observation LastModified by Organization Detai ls LastModified Time None Recorded Concern Status LastModified by Organization Details LastModified Time None Recorded Advance Directives Directive None Recorded Payers Encounter Date Sequence Insurance Name Policy Number Policy Lockett Covered Member ID Lockett Member ID Guarantor Name 05/19/2022 1 [place] Miquel Allen [id number] Miquel Allen 05/19/2022 2 [place] [employer] 111 Miquel Allen [id number] Miquel Allen 12/01/2022 1 [place] Miquel Allen [id number] Miquel Allen 12/01/2022 2 [place] 111 Miquel Allen [id number] Miquel Allen Notes Date Note Type Note Provider Name and Address Organization Details Recorded Time 05/19/2022 text/html the patient has a history of significant sclerosis of the distal foreskin. Also due to patient's body habitus the penis is significantly retracted. The patient tells me that he has been attempting to wash and administer hgiene beneath the phimotic foreskin. He is also used topical steroid cream /nystatin. He does have a history of diabetes and other significant medical comorbidity. He is voiding well and having no dysuria, hematuria or bleeding. Past history from 01/20/22: {History of phimosis, penile retraction, marked distal foreskin fibrosis with a history of lichen sclerosis, morbid obesity and type 2 diabetes. The patient has been treated with topical nystatin and triamcinolone cream which is helped his penile issues. He has had less soreness and tenderness and has had no discharge. He still has trouble retracting the foreskin.} Fritz Leung MD [address] [facility], [place], [address], [place] - [facility] & [place] 05/19/2022 17:43:30 12/01/2022 text/html the patient retu rns to clinic today with a history of significant sclerosis of the distal foreskin. The penis is markedly retracted due to patient's body habitus. This has also been affected by weight fluctuation which currently is up approximately 20 lb according to patient's description. Patient has a history of lichen sclerosis and type 2 diabetes. He is used topical preparations that I have had marginal success. He tells me that Dr. Monteiro at the [facility] is planning on performing circumcision sometime in the near future. See below past medical history:History of significant sclerosis of the distal foreskin. Also due to patient's body habitus the penis is significantly retracted. The patient tells me that he has been attempting to wash and administer hgiene beneath the phimotic foreskin. He is also used topical steroid cream /nystatin. He does have a history of diabetes and other significant medical comorbidity. He is voiding well and having no dysuria, hematuria or bleeding.Past history from 01/20/22: {History of phimosis, penile retraction, marked distal foreskin fibrosis with a history of lichen sclerosis, morbid obesity and type 2 diabetes. The patient has been treated with topical nystatin and triamcinolone cream which is helped his penile issues. He has had less soreness and tenderness and has had no discharge. He still has trouble retracting the foreskin.} Fritz Leung MD [address] [facility], [place], [address], [facility] - [facility] - [place] & [place] 12/01/2022 15:21:58
--- OUTSIDE RECORDS SUMMARY | 2024-09-27 22:35 | XMS_ITS | Continuity of Care Document ---
Author Name [facility] Organization [facility] Care Team Providers Care Tinsmith Helper Name Role Phone [facility] Unavailable Unavailable Problems Combined list of problems from Department of Defense and [facility] Affairs facilities. It does not include entries that were removed or entered in error. Problem Status Onset Date Problem Type Date of Resolution Comments Source Allergic rhinitis Active Condition [facility] CAD - Coronary artery disease Active Condition Nov 23, 2022 Entered By: VERÓNICA LEAHY Comment: s/p cath and stent 05/2022 [place] Chronic obstructive lung disease Active Condition [place] [facility] Chronic pain Active Condition [place] Depressive disorder Active Condition [place] Diabetes Mellitus without mention of Complication, type II or unspecified type, [facility] Diabetic neuropathy Active Condition [place] Gastroesophageal reflux disease (SNOMED CT [id number]) [facility] Hyperlipidemia Active Condition [place] [facility] hypertension, essential Active Condition [facility] Insomnia Active Condition [place] [facility] Memory loss Active Condition [place] [facility] Obstructive sleep apnea syndrome Active Condition [place] [facility] Seborrhoeic dermatitis of scalp Active Condition [place] Severe persistent allergic asthma uncontrolled (SNOMED CT [id number]) Active Condition [place] [facility] Simple obesity Active Condition [place] [facility] Hyperglycemia Inactive Condition 05/28/2019 [place] NEUROTIC DEPRESSION Inactive Condition 05/28/2019 [place] [facility] Diagnosis: ICD-10-CM G47.33 Obstructive sleep apnea (adult) (pediatric) Active Diagnosis [facility] Diagnosis: ICD-10-CM J44.9 Chronic obstructive pulmonary disease, unspecified Active Diagnosis [facility] Diagnosis: ICD-10-CM J45.40 Moderate persistent asthma, uncomplicated Active Diagnosis [facility] Diagnosis: ICD-10-CM Z13.6 Encounter for screening for cardiovascular disorders Active Diagnosis [facility] Diagnosis: ICD-10-CM J45.50 Severe persistent asthma, uncomplicated Active Diagnosis [facility] Diagnosis: ICD-10-CM Z02.89 Encounter for other administrative examinations Active Diagnosis [facility] Diagnosis: ICD-10-CM Z71.0 Prsn encntr hlth serv to consult on behalf of another person Active Diagnosis [facility] Diagnosis: ICD-10-CM Z74.2 Need for assist at home & no house memb able to render care Active Diagnosis [facility] Diagnosis: ICD-10-CM Z71.89 Other specified counseling Active Diagnosis [facility] Diagnosis: ICD-10-CM R06.00 Dyspnea, unspecified Active Diagnosis [facility] Diagnosis: ICD-10-CM H90.3 Sensorineural hearing loss, bilateral Active Diagnosis [facility] Medications Combined list of outpatient medications from Department of Defense and [facility] Affairs facilities.Medications provided include 1) outpatient medications from the last 15 months, and 2) patient-reported medications. Medication Details Route Status Patient Instructions Prescription Expires Prescription Number Last Dispense Date Ordering Provider Order Date Order Qty Source 14 MUSHROOM COMPLEX CAP/TAB TAKE BY MOUTH TWICE A DAY ORAL ACTIVE LEAHY,PRITCHARD UR N 2022 [place] [facility] ACETAMINOPH EN 325MG TAB TAKE TWO TABLETS BY MOUTH DAILY NEEDED ORAL ACTIVE LEAHY,PRITCHARD UR N 2022 [place] [facility] ALBUTEROL SO4 3MG/IPRATRO PIUM BR 0.5MG/3ML INHL,3ML USE 1 AMP (3ML) IN NEBULIZE R THREE TIMES A DAY RESPIR ATORY (INHAL ATION) ACTIVE LEAHY,PRITCHARD UR N 2020 [place] ALBUTEROL SO4 90MCG/ACTUA T (CFC-F) INHL,ORAL,8 .5GM INHALE 2 PUFFS BY MOUTH FOUR TIMES A DAY NEEDED FOR BREATHIN G RESPIR ATORY (INHAL ATION) 03/23/2024 [id number] LEAHY,PRITCHARD UR N 2022 1 [place] [facility] ASPIRIN 81MG TAB,EC TAKE ONE TABLET BY MOUTH DAILY ORAL ACTIVE LEAHY,PRITCHARD UR N 2023 [place] [facility] ATORVASTATI N CA 40MG TAB TAKE ONE TABLET BY MOUTH DAILY ORAL ACTIVE LEAHY,PRITCHARD UR N 2023 [place] [facility] DULOXETINE HCL 60MG CAP,EC TAKE 1 CAPSULE BY MOUTH DAILY ORAL ACTIVE LEAHY,PRITCHARD UR N 2022 [place] [facility] EZETIMIBE 10MG TAB TAKE ONE TABLET BY MOUTH EVERY EVENING ORAL ACTIVE LEAHY,PRITCHARD UR N 2022 [place] [facility] FLUOXETINE HCL 20MG CAP TAKE 3 CAPSULES BY MOUTH DAILY ORAL ACTIVE LEAHY,PRITCHARD UR N 2020 [place] FLUTICASONE PROPIONATE 50MCG/SPRAY SOLN,NASAL, 16GM USE 2 SPRAYS IN EACH NOSTRIL DAILY NASAL ACTIVE LEAHY,PRITCHARD UR N 2023 [place] [facility] GABAPENTIN 400MG CAP TAKE 3 CAPSULES BY MOUTH THREE TIMES A DAY ORAL ACTIVE LEAHY,PRITCHARD UR N 2020 [place] INSULIN CONC REG 500 UNT/ML*KWIK PEN* INJ INJECT 40 UNITS UNDER THE SKIN EVERY MORNING AND INJECT 30 UNITS UNDER THE SKIN QAM QAM^EVER Y MORNING^ C^09 SUBCUT ANEOUS ACTIVE LEAHY,PRITCHARD UR N 2023 [place] [facility] KETOCONAZOL E 2% SHAMPOO SHAMPOO WITH SMALL AMOUNT AFFECTED AREA TWICE PER WEEK FOR DANDRUFF TOPICA L 01/28/2024 [id number] LEAHY,PRITCHARD UR N 2023 120 [place] [facility] LIDOCAINE 5% PATCH APPLY TO SKIN DAILY TRANSD ERMAL ACTIVE LEAHY,PRITCHARD UR N 2022 [place] [facility] LOPERAMIDE SUSP,ORAL TAKE BY MOUTH PRN ORAL ACTIVE LEAHY,PRITCHARD UR N 2020 [place] LORATADINE 10MG TAB TAKE ONE TABLET BY MOUTH DAILY ORAL ACTIVE LEAHY,PRITCHARD UR N 2023 [place] [facility] MOMETASONE FUROATE 200MCG/ACTU AT INHL,ORAL,1 20D,13GM INHALE 2 PUFFS BY MOUTH TWICE A DAY FOR ASTHMA -RINSE MOUTH AND SPIT AFTER EACH USE RESPIR ATORY (INHAL ATION) ACTIVE 04/20/2025 [id number] 5 LUCRECIA BULL 2023 3 [place] MONTELUKAST NA 10MG TAB TAKE ONE TABLET BY MOUTH AT BEDTIME FOR ASTHMA ORAL ACTIVE 03/31/2025 [id number] 5 JAZIEL MONTOYA 2023 90 [place] [facility] MONTELUKAST NA 10MG TAB TAKE ONE TABLET BY MOUTH AT BEDTIME FOR ASTHMA ORAL DISCONT INUED 04/07/2024 [id number] 4 LUCRECIA BULL 2022 90 [place] MULTIVITAMI NS W/MINERALS CAP/TAB TAKE 1 CAP(S)/T AB BY MOUTH DAILY ORAL ACTIVE LEAHY,PRITCHARD UR N 2022 [place] [facility] OLODATEROL 2.5MCG/TIOT ROPIUM 2.5MCG/ACTU AT INHL,ORAL,6 0D,4GM INHALE 2 PUFFS BY MOUTH DAILY FOR BREATHIN G ORAL ACTIVE 04/20/2025 [id number] 5 LUCRECIA BULL 2023 3 [place] PREDNISONE 20MG TAB TAKE TWO TABLETS BY MOUTH DAILY FOR LUNGS ORAL ACTIVE 09/08/2024 [id number] 4 LUCRECIA BULL 2023 20 [place] SEMAGLUTIDE (WT LOSS) INJ,SOLN INJECT UNDER THE SKIN EVERY WEEK SUBCUT ANEOUS ACTIVE LEAHY,PRITCHARD UR N 2023 [place] [facility] TICAGRELOR 90MG TAB TAKE ONE TABLET BY MOUTH TWICE A DAY ORAL ACTIVE MACHO LEAHY UR N 2022 [place] [facility] Allergies, Adverse Reactions, Alerts Combined list of allergies from Department of Defense and Veterans Affairs facilities. It does not include entries that were removed or entered in error. Substance Category Reaction Severity Reaction type Status Date Reported Comments Source BACTRIM Propensity to adverse reactions to drug (finding) HIVES active 8 [facility] LISINOPRIL Propensity to adverse reactions to drug (finding) Eruption active 9 [facility] NONSTEROIDAL ANTI-INFLAMMA TORY Propensity to adverse reactions to drug (finding) active 6 [facility] PRAVASTATIN Propensity to adverse reactions to drug (finding) Eruption active 2 [facility] Immunizations Combined list of available immunizations from the Department of Defense and Veterans Affairs facilities. Immunization Series Date Given Administered By Site Reaction Lot Number CVX Code Drug Melter Helper Status Comments Source INFLUENZA, HIGH-DOSE, QUADRIVALENT 2 2022 197 complet ed HISTORICA L INFORMATI ON - FROM OTHER REGISTRY, [place] [facility] INFLUENZA, INJECTABLE, QUADRIVALENT, PRESERVATIVE FREE 1 2021 150 complet ed HISTORICA L INFORMATI ON - FROM OTHER REGISTRY, [place] [facility] COVID-19 (Oodle), MRNA, LNP-S, BIVALENT, PF, 30 MCG/0.3 ML DOSE 1 2021 300 complet ed HISTORICA L INFORMATI ON - FROM PATIENT'S WRITTEN RECORD, [place] [facility] INFLUENZA, UNSPECIFIED FORMULATION 2021 88 complet ed Completed Series, HISTORICA L INFORMATI ON - FROM PATIENT'S RECALL, [place] [facility] COVID-19 (Oodle), MRNA, LNP-S, PF, 30 MCG/0.3 ML DOSE, RISA-SUCROSE (AGES 12+ YEARS) 1 2021 217 complet ed HISTORICA L INFORMATI ON - FROM OTHER REGISTRY, [place] [facility] INFLUENZA, UNSPECIFIED FORMULATION 2021 88 complet ed [place] [facility] PNEUMOCOCCAL CONJUGATE PCV20, POLYSACCHARID E [id number] CONJUGATE, ADJUVANT, PF 2021 216 complet ed HISTORICA L INFORMATI ON - FROM PATIENT'S WRITTEN RECORD, [place] [facility] COVID-19 (PFIZER), MRNA, LNP-S, PF, 30 MCG/0.3 ML DOSE 2 2020 208 complet ed [facility] COVID-19 (GELA), VECTOR-NR, [id number], PF, 0.5 ML 1 2020 212 complet ed [place] [facility] INFLUENZA, UNSPECIFIED FORMULATION 2019 88 complet ed [place] [facility] REC[facility] 2 2018 187 complet ed HISTORICA L INFORMATI ON - FROM PATIENT'S WRITTEN RECORD, [place] [facility] ZOSTER RECOMBINANT 1 2018 187 complet ed HISTORICA L INFORMATI ON - FROM PATIENT'S WRITTEN RECORD, [place] [facility] TD(ADULT) UNSPECIFIED FORMULATION 2006 139 complet ed [place] [facility] INFLUENZA A & B (HISTORICAL) 2005 88 complet ed [place] [facility] INFLUENZA A & B (HISTORICAL) 2004 88 complet ed [place] [facility] FLU,3 YRS (HISTORICAL) 2002 DENIA FLORES 88 complet ed [place] INFLUENZA, UNSPECIFIED FORMULATION 1996 TURCIOS 88 complet ed [place] TD(ADULT) UNSPECIFIED FORMULATION 1996 CJ VIVEROS T 139 complet ed pt states given in 1996 [place] INFLUENZA, UNSPECIFIED FORMULATION 1995 ANAYA ZAMARRIPA 88 complet ed [place] PNEUMOCOCCAL, UNSPECIFIED FORMULATION 1993 CJ VIVEROS T 109 complet ed pt states given in 1993 [place] Results Combined list of recent chemistry, hematology and other laboratory results from Department of Defense and Veterans Affairs, ranging from 15 months to all on record, depending upon the facility. Order Name Results Value Reference Range Date Interpretation Specimen Comments Source AUTOMATED DIFF LYMPHOCYTES /100 LEUKOCYTES IN BLOOD BY AUTOMATED COUNT 20.4 24.0 - 44.0 09/07 L Specimen Type: BLOOD No comment entered. Ordering Provider: JAYE BULL Report Released Date/Time: Sep 08, 2023 10:30 AM Reporting Lab: [place] [id number] Performing Lab: [address] AUTOMATED DIFF MONOCYTES/1 00 LEUKOCYTES IN BLOOD BY AUTOMATED COUNT 6.5 0.1 - 6.0 09/07 H Specimen Type: BLOOD No comment entered. Ordering Provider: JAYE BULL Report Released Date/Time: Sep 08, 2023 10:30 AM Reporting Lab: [address] Performing Lab: [address] AUTOMATED DIFF GRANULOCYTE S/100 LEUKOCYTES IN BLOOD BY AUTOMATED COUNT 68.5 42.0 - 75.0 09/07 Specimen Type: BLOOD No comment entered. Ordering Provider: JAYE BULL Report Released Date/Time: Sep 08, 2023 10:30 AM Reporting Lab: [place] [id number] Performing Lab: [place] [id number] AUTOMATED DIFF LYMPHOCYTES [#/VOLUME] IN BLOOD BY AUTOMATED COUNT 2.66 10*3/u L 1.20 - 3.40 09/07 Specimen Type: BLOOD No comment entered. Ordering Provider: JAYE BULL Report Released Date/Time: Sep 08, 2023 10:30 AM Reporting Lab: [address] [address] Performing Lab: [place] [id number] [place] [facility] AUTOMATED DIFF MONOCYTES [#/VOLUME] IN BLOOD BY AUTOMATED COUNT 0.85 10*3/u L 0.00 - 0.60 09/07 H Specimen Type: BLOOD No comment entered. Ordering Provider: JAYE BULL Report Released Date/Time: Sep 08, 2023 10:30 AM Reporting Lab: [place] [id number] Performing Lab: [place] [id number] AUTOMATED DIFF GRANULOCYTE S [#/VOLUME] IN BLOOD BY AUTOMATED COUNT 8.95 10*3/u L 1.40 - 6.50 09/07 H Specimen Type: BLOOD No comment entered. Ordering Provider: JAYE BULL Report Released Date/Time: Sep 08, 2023 10:30 AM Reporting Lab: [place] [id number] Performing Lab: [address] [facility] AUTOMATED DIFF BASOPHILS/1 00 LEUKOCYTES IN BLOOD BY AUTOMATED COUNT 0.5 0.0 - 3.0 09/07 Specimen Type: BLOOD No comment entered. Ordering Provider: JAYE BULL Report Released Date/Time: Sep 08, 2023 10:30 AM Reporting Lab: [address] [address] Performing Lab: [place] [id number] AUTOMATED DIFF BASOPHILS [#/VOLUME] IN BLOOD BY AUTOMATED COUNT 0.06 10*3/u L 0.00 - 0.20 09/07 Specimen Type: BLOOD No comment entered. Ordering Provider: JAYE BULL Report Released Date/Time: Sep 08, 2023 10:30 AM Reporting Lab: [address] [address] Performing Lab: [place] [phone] [place] AUTOMATED DIFF EOSINOPHILS /100 LEUKOCYTES IN BLOOD BY AUTOMATED COUNT 3.6 0.0 - 10.0 09/07 Specimen Type: BLOOD No comment entered. Ordering Provider: JAYE BULL Report Released Date/Time: Sep 08, 2023 10:30 AM Reporting Lab: [place] [address] Performing Lab: [address] [facility] AUTOMATED DIFF EOSINOPHILS [#/VOLUME] IN BLOOD BY AUTOMATED COUNT 0.47 10*3/u L 0.00 - 0.70 09/07 Specimen Type: BLOOD No comment entered. Ordering Provider: JAYE BULL Report Released Date/Time: Sep 08, 2023 10:30 AM Reporting Lab: [place] [address] Performing Lab: [address] [facility] AUTOMATED DIFF IMMATURE GRANULOCYTE S/100 LEUKOCYTES IN BLOOD 0.5 0.0 - 0.5 09/07 Specimen Type: BLOOD No comment entered. Ordering Provider: JAYE BULL Report Released Date/Time: Sep 08, 2023 10:30 AM Reporting Lab: [place] [phone] Performing Lab: [address] [facility] AUTOMATED DIFF IMMATURE GRANULOCYTE S [#/VOLUME] IN BLOOD 0.06 10*3/u L 0.00 - 0.06 09/07 Specimen Type: BLOOD No comment entered. Ordering Provider: JAYE BULL Report Released Date/Time: Sep 08, 2023 10:30 AM Reporting Lab: [place] [phone] Performing Lab: [address] [facility] BNP (GONSALEZ) NATRIURETIC PEPTIDE B [MASS/VOLUM E] IN SERUM OR PLASMA 24 pg/mL 0 - 100 09/07 Specimen Type: PLASMA Comment: BNP results less than or equal to 100 pg/ml are representati ve of normal values in patients without CHF. BNP results greater than 100 pg/ml are considered abnormal and suggestive of CHF. Higher BNP concentratio ns in the first 72 hours after Acute Coronary Syndrome are associated with an increased risk of , myocardial infarction and CHF. Ordering Provider: JAYE BULL Report Released Date/Time: Sep 08, 2023 10:30 AM Reporting Lab: [address] [address] Performing Lab: [address] [address] [facility] CBC/PLT LEUKOCYTES [#/VOLUME] IN BLOOD BY AUTOMATED COUNT 13.1 10*3/u L 5.0 - 10.0 09/07 H Specimen Type: BLOOD No comment entered. Ordering Provider: JAYE BULL Report Released Date/Time: Sep 08, 2023 10:30 AM Reporting Lab: [address] [address] Performing Lab: [place] [phone] [facility] CBC/PLT ERYTHROCYTE S [#/VOLUME] IN BLOOD BY AUTOMATED COUNT 4.92 10*6/u L 4.6 - 6.2 09/07 Specimen Type: BLOOD No comment entered. Ordering Provider: JAYE BULL Report Released Date/Time: Sep 08, 2023 10:30 AM Reporting Lab: [address] [address] Performing Lab: [address] [address] [facility] CBC/PLT HEMOGLOBIN [MASS/VOLUM E] IN BLOOD 14.7 g/dL 14.0 - 18.0 09/07 Specimen Type: BLOOD No comment entered. Ordering Provider: JAYE BULL Report Released Date/Time: Sep 08, 2023 10:30 AM Reporting Lab: [address] [address] Performing Lab: [address] [address] [facility] CBC/PLT HEMATOCRIT [VOLUME FRACTION] OF BLOOD BY AUTOMATED COUNT 46.1 42.0 - 52.0 09/07 Specimen Type: BLOOD No comment entered. Ordering Provider: JAYE BULL Report Released Date/Time: Sep 08, 2023 10:30 AM Reporting Lab: [place] [phone] Performing Lab: [address] CBC/PLT MCV [ENTITIC VOLUME] BY AUTOMATED COUNT 93.7 fL 80.0 - 94.0 09/07 Specimen Type: BLOOD No comment entered. Ordering Provider: JAYE BULL Report Released Date/Time: Sep 08, 2023 10:30 AM Reporting Lab: [place] [address] Performing Lab: [place] [address] [place] CBC/PLT MCH [ENTITIC MASS] BY AUTOMATED COUNT 29.9 pg 27.0 - 31.0 09/07 Specimen Type: BLOOD No comment entered. Ordering Provider: JAYE BULL Report Released Date/Time: Sep 08, 2023 10:30 AM Reporting Lab: [place] [address] Performing Lab: [address] CBC/PLT MCHC [MASS/VOLUM E] BY AUTOMATED COUNT 31.9 g/dL 32.0 - 36.0 09/07 L Specimen Type: BLOOD No comment entered. Ordering Provider: JAYE BULL Report Released Date/Time: Sep 08, 2023 10:30 AM Reporting Lab: [place] [address] Performing Lab: [address] CBC/PLT PLATELETS [#/VOLUME] IN BLOOD 229 10*3/u L 150 - 450 09/07 Specimen Type: BLOOD No comment entered. Ordering Provider: JAYE BULL Report Released Date/Time: Sep 08, 2023 10:30 AM Reporting Lab: [address] [address] Performing Lab: [place] [id number] [place] [address] [facility] CBC/PLT PLATELET MEAN VOLUME [ENTITIC VOLUME] IN BLOOD 9.7 fL 9.0 - 13.1 09/07 Specimen Type: BLOOD No comment entered. Ordering Provider: JAYE BULL Report Released Date/Time: Sep 08, 2023 10:30 AM Reporting Lab: [address] [address] Performing Lab: [address] CBC/PLT ERYTHROCYTE DISTRIBUTIO N WIDTH [ENTITIC VOLUME] BY AUTOMATED COUNT 14.5 11.0 - 16.0 09/07 Specimen Type: BLOOD No comment entered. Ordering Provider: JAYE BULL Report Released Date/Time: Sep 08, 2023 10:30 AM Reporting Lab: [address] [address] Performing Lab: [place] [id number] [place] [address] CBC/PLT NUCLEATED ERYTHROCYTE S/100 ERYTHROCYTE S IN BLOOD 0.0 0.0 - 0.0 09/07 Specimen Type: BLOOD No comment entered. Ordering Provider: JAYE BULL Report Released Date/Time: Sep 08, 2023 10:30 AM Reporting Lab: [address] [address] Performing Lab: [address] [phone] [place] [address] IMMUNOGLOB ULIN E IGE [UNITS/VOLU ME] IN SERUM OR PLASMA 147 [IU]/m L 6 - 495 09/07 Specimen Type: SERUM No comment entered. Ordering Provider: JAYE BULL Report Released Date/Time: Sep 08, 2023 10:30 AM Reporting Lab: [address] [address] Performing Lab: [facility] [address] [facility] [id number] [facility] Vital Signs Combined list of inpatient and outpatient Vital Signs from Department of [facility] and [facility] Affairs, ranging from 12 months to all on record, depending upon the facility. Vital Sign Value Date Comments Source SYSTOLIC BLOOD PRESSURE 131 12/29/2023 13:33:06 [facility] DIASTOLIC BLOOD PRESSURE 82 12/29/2023 13:33:06 [facility] PULSE OXIMETRY 95 12/29/2023 13:33:06 [facility] WEIGHT 322 12/29/2023 13:33:06 [facility] BMI 46 kg/m2 12/29/2023 13:33:06 [facility] PAIN 2 12/29/2023 13:33:06 [facility] HEIGHT 70 12/29/2023 13:33:06 [facility] TEMPERATURE 97.2 12/29/2023 13:33:06 [facility] PULSE 91 12/29/2023 13:33:06 [facility] Encounters Combined list of: 1) Encounters from Department of Veterans Affairs facilities going backup to the last 18 months, not all [place] inpatient encounters are included; 2) Encounters from the Department of [facility] facilities going backup to 280 months. Location Location Details Encounter Type Encounter Number Reason For Visit Attending Provider ADM Date DC Date Status Disposition Source [facility] Outpatient [facility]counter [id number] 04/07 [place] [facility] HI 40-54 MIN [id number] Diagnos is: ICD-10- CM J44.9 Chronic obstruc tive pulmona ry disease , unspeci fiKELLEN Yin 04[facility] [facility] [id number] Diagnos is: ICD-10- CM H90.3 Sensori neural hearing loss, bilater VANESSA Lindsey M 04/07 [place] [facility] Outpatient Encounter [id number] 04/12 [place] [facility] Outpatient Encounter [id number] 04/12 [place] [facility] THERAPEUTI C EXERCISES [id number] Diagnos is: ICD-10- CM J45.50 Severe persist ent asthma, uncompl icated SABA COFFEY CORNELL N 05/04 [place] [facility] HC PRO PHONE CALL 5-10 MIN [id number] Diagnos is: ICD-10- CM Z71.89 Other specifi ed financial counselor JAY Poole 05/04 [place] [facility] SELF-MGMT EDUC & TRAIN 1 [place] [id number] Diagnos is: ICD-10- CM J44.9 Chronic obstruc tive pulmona ry disease , unspeci fiSABA Rod CORNELL N 05/11 [place] Outpatient Encounter [id number] 05/20 [place] Outpatient Encounter [id number] 05/27 [place] SELF-MGMT EDUC & TRAIN 1 [place] [id number] Diagnos is: ICD-10- CM J44.9 Chronic obstruc tive pulmona ry disease , unspeci fiSABA Rod CORNELL N 06/01 [place] SELF-MGMT EDUC & TRA[place] 1 [place] [id number] Diagnos is: ICD-10- CM J44.9 Chronic obstruc tive pulmona ry disease , unspeci fied SABA COFFEYA N 06/07 [place] Outpatient Encounter [id number] 40 06/24 [place] Outpatient Encounter [id number] 82 07/05 [place] SELF-MGMT EDUC & TRA[place] 1 [place] [id number] Diagnos is: ICD-10- CM J44.9 Chronic obstruc tive pulmona ry disease , unspeci fied ALEXX,SABA CORNELL N 07/06 [place] SELF-MGMT EDUC & TRA[place] 1 [place] [id number] Diagnos is: ICD-10- CM J44.9 Chronic obstruc tive pulmona ry disease , unspeci fied ALEXX,SABA CORNELL N 07/12 [place] Outpatient Encounter [id number] 07/26 [place] SELF-MGMT EDUC & TRA[place] 1 [place] [id number] Diagnos is: ICD-10- CM J44.9 Chronic obstruc tive pulmona ry disease , unspeci fied ALEXX,SABA CORNELL N 08/01 [place] SELF-MGMT EDUC & TRA[place] 1 [place] [id number] Diagnos is: ICD-10- CM J44.9 Chronic obstruc tive pulmona ry disease , unspeci fied ALEXX,SABA CORNELL N 08/11 [place] Outpatient Encounter [id number] 08/16 [place] [facility] [place] [facility] Outpatient Encounter [id number] 40 08/16 [place] HC PRO PHONE CALL 21-30 MIN [id number] Diagnos is: ICD-10- CM J44.9 Chronic obstruc tive pulmona ry disease , unspeci fied SABA COFFEY N 08/22 [place] [id number] 09/01 [place] HC PRO PHONE CALL 11-20 MIN [id number] Diagnos is: ICD-10- CM J44.9 Chronic obstruc tive pulmona ry disease , unspeci fied SABA COFFEY N 09/05 [place] Outpatient Encounter [id number] EDUARDO BOYD 09/06 [place] OFFICE O/P EST HI 40 MIN [id number] Diagnos is: ICD-10- CM R06.00 Dyspnea , unspeci fied GEETHA MONTOYA F 09/07 [place] AIRWAY INHALATION TREATMENT [id number] Diagnos is: ICD-10- CM J44.9 Chronic obstruc tive pulmona ry disease , unspeci fied JESUS SKY R 09/07 [place] Outpatient Encounter [id number] 09/12 [place] Outpatient Encounter [id number] 09/19 [place] Outpatient Encounter [id number] 09/26 [place] HC PRO PHONE CALL 11-20 MIN [id number] Diagnos is: ICD-10- CM J44.9 Chronic obstruc tive pulmona ry disease , unspeci fied GARCÍA FAROOQ 10/13 [place] CASE MANAGEMENT [id number] Diagnos is: ICD-10- CM Z71.89 Other specifi ed financial counselor JARROD Mckenna 11/21 [place] [facility] Outpatient Encounter [id number] DOMINIQUE RANKIN 11/22 [place] [facility] HC PRO PHONE CALL 21-30 MIN [id number] Diagnos is: ICD-10- CM Z74.2 Need for assist at home and no house memb able to render care DOMINIQUE RANKIN 11/22 [place] [facility] HC PRO PHONE CALL 5-10 MIN [id number] Diagnos is: ICD-10- CM Z71.0 Prsn encntr hlth serv to consult on behalf of another person MARLENI PRECIADO 11/22 [place] [facility] Outpatient Encounter [id number] 11/27 [place] [facility] HC PRO PHONE CALL 21-30 MIN [id number] Diagnos is: ICD-10- CM Z71.0 Prsn encntr hlth serv to consult on behalf of another person MILLIE CARREONKEVIN Blue 11/27 [place] [facility] Outpatient Encounter [id number] 11/28 [place] [facility] Outpatient Encounter [id number] 11/29 [place] [facility] HC PRO PHONE CALL 21-30 MIN [id number] Diagnos is: ICD-10- CM Z02.89 Encount er for other adminis trative examina tions MILLICENTAnnamaria CARREONKEVIN Blue 12/08 [place] [facility] Outpatient Encounter [id number] 12/08 [place] [facility] Outpatient Encounter [id number] 12/25 [place] [facility] OFF/OP EST MAY X REQ PHY/QHP [id number] Diagnos is: ICD-10- CM J44.9 Chronic obstruc tive pulmona ry disease , unspeci fied ME TELLO SCHULTZ 12/27 [place] [facility] Outpatient Encounter [id number] 12/28 [place] [facility] Outpatient Encounter [id number] 12/28 [place] [facility] OFFICE O/P EST MOD 30 MIN [id number] Diagnos is: ICD-10- CM J45.50 Severe persist ent asthma, uncompl icated POLO LEAHY 12/28 [place] [facility] Outpatient Encounter [id number] 01/01 [place] [facility] Outpatient Encounter [id number] 01/12 [place] [facility] Outpatient Encounter [id number] 01/19 [place] [facility] HC PRO PHONE CALL 5-10 MIN [id number] Diagnos is: ICD-10- CM Z02.89 Encount er for other adminis trative examina GOPAL Egan 01/19 [place] [facility] Outpatient Encounter [id number] 01/22 [place] Outpatient Encounter [id number] 03/13 [place] [facility] Outpatient Encounter [id number] 04/05 [place] Outpatient Encounter [id number] 04/06 [place] OFFICE O/P EST HI 40 MIN [id number] [id number] Diagnos is: ICD-10- CM J45.50 Severe persist ent asthma, uncompl icated KELLEN MONTOYA J 04/19 [place] MEASURE BLOOD OXYGEN LEVEL [id number] [id number] Diagnos is: ICD-10- CM J44.9 Chronic obstruc tive pulmona ry disease , unspeci fiHANNAH Brown 04/19 [place] Outpatient Encounter [id number] 04/23 [place] [facility] [place] [facility] Outpatient Encounter [id number] [id number] 06/19 [place] TTE W/DOPPLER COMPLETE [id number] Diagnos is: ICD-10- CM Z13.6 Encount er for screeni ng for cardiov ascular disorde JUSTIN Malik R 07/12 [place] Outpatient Encounter [id number] 07/13 [place] Outpatient Encounter [id number] 07/16 [place] Outpatient Encounter [id number] 07/17 [place] [facility] Outpatient Encounter [id number] 08/08 [place] MOD 30 [id number] Diagnos is: ICD-10- CM J45.40 Moderat e persist ent asthma, uncompl icated ARVIND LIPSCOMB 08/09 [place] PT EDUCATION NOC INDIVID [id number] Diagnos is: ICD-10- CM J44.9 Chronic obstruc tive pulmona ry disease , unspeci fied ME FAB VELÁZQUEZ L 09/06 [place] PH1 ASSMT&MGMT NQHP -20 [id number] [id number] Diagnos is: ICD-10- CM G47.33 Obstruc tive sleep apnea (adult) (pediat juana) JESUS SKY NDY R 09/07 [place] Social History Combined list of available smoking, tobacco, and other social history from Department of Defense and Veterans Affairs facilities. Social History Type Response Date Comment Sourc e Tobacco smoking status NHIS [facility]-TOBACCO FORMER USER 11/23/2022 [facility] History of tobacco use [place]-TO[place]ACCO QUIT 15 YRS OR MORE 11/23/2022 [facility] History of tobacco use [place]-TO[place]ACCO FORMER USER 10/16/2021 [facility] History of tobacco use [place]-TOBACCO FORMER USER 09/11/2020 [facility] < 15 YRS 05/07/2019 [facility] History of tobacco use V9 QUIT TOBACCO >12 MO and <7 YRS AGO 03/12/2010 [facility] History of tobacco use V9 QUIT TOBACCO IN THE LAST 12 MONTHS 02/16/2008 [facility] History of tobacco use V9 CURRENT TOBACCO USER 10/06/2006 [facility] History of tobacco use V9 CURRENT TOBACCO USER 07/01/2006 1ppd [facility] History of tobacco use HF V9 CURRENT SMOKER 07/02/2005 1ppd [facility] History of tobacco use NON-TOBACCO USER 12/25/1998 [facility] History of tobacco use NON-TOBACCO USER 01/17/1998 [facility] Plan of Care List of future care activities from Department of Veterans Affairs facilities. Additional future care activities may be listed in the Assessment and Plan section. Date/Time Care Activity Care Activity Detail Facili ty 10/29/2024 AMBULATORY - NEUROLOGY AMBULATORY - NEURO LOGY [facility]
== END 2024-09-26 23:25 | disposition home or self-care (01) ==
PROVIDERS: Emergency Provider Emergency Medicine; PCP Internal Medicine
DX: R07.9 Chest pain, unspecified (principal); R10.13 Epigastric pain; Z11.59 Encounter for screening for other viral diseases; Z11.4 Encounter for screening for human immunodeficiency virus [HIV]
CPT/HCPCS: 99284; 71045; 80053; 83690; 84484; 85025; 85610; 85730; 86803; 87389; 93005

== ENCOUNTER 2024-11-27 19:18 | Emergency (ER) | payer MEDICARE, BC, SELFPAY ==
--- OUTSIDE RECORDS SUMMARY | 2024-02-08 11:45 | XMS_ITS | Continuity of Care Document ---
Author Organization [facility] Address [address] [place] [address] Phone Care Team Providers Care Scenery Builder Name Role Phone Santos SETH Sheila Unavailable [...] Encounter Office/outpa tient visit,est, mod [facility], [address] [place] [address], [address], [place] tel:[phone] [place] Office Visit (chief complaint) Presence of left artificial knee joint 4 Claudia Sosa. [address] [place] [address], [address], [place]. tel:[phone] Referring Provider: Sheila Fleming, [address] [place] [address], [facility]. tel:[phone] [facility], [address] [place] [address], [address], [place] tel:[phone] [place] No Information 4 Claudia Sosa. [address] [place] [address], [address], [place]. tel:[phone] Referring Provider: Sheila Fleming, [address] [place] [address], [facility]. tel:[phone] [facility], [address] [place] [address], [address], [place] tel:[phone] [place] No Information 4 Ayaan Chavis. [address] [place] [address], [address], [place]. tel:[phone] Referring Provider: Sheila Fleming, [address] [place] [address], [address]. tel:[phone] Office/outpa tient visit,est, mod [facility], [address] [place] [address], [address], [place] tel:[phone] [place] Follow Up (chief complaint) Presence of left artificial knee joint 4 Billjuanita Sosa. [address] [place] [address], [address], [place]. tel:[phone] Referring Provider: Sheila Fleming, [address] [place] [address], [facility]. tel:[phone] Office/outpa tient visit,est, mod [facility], [address] [place] [address], [address], [place] tel:[phone] [place] EPNP (chief complaint) Impingement syndrome of right shoulderImping ement syndrome of left shoulder Russel- 4 Claudia Sosa. [address] [place] [address], [address], [place]. tel:[phone] Referring Provider: Sheila Fleming, [address] [place] [address], [facility]. tel:[phone] [facility] [address], [address], [place] tel:[phone] [place] General orthopedic (chief complaint) Presence of left artificial knee joint Mar- 2 Claudia Sosa. [address] [place] [address], [address], [place]. tel:[phone] Referring Provider: Sheila Fleming, [address] [place] [address], [facility]. tel:[phone] [facility], [address] [place] [address], [address], [place] tel:[phone] General orthopedic (chief complaint) Presence of left artificial knee joint Feb- 2 Claudia Sosa. [address] [place] [address], [address], [place]. tel:[phone] Referring Provider: Sheila Fleming, [address] [place] [address], [facility]. tel:[phone], [address], [place] tel:[phone] [place] General orthopedic (chief complaint) Presence of left artificial knee joint 2 Deborah Dalton. [address] [place] [address], [address], [place]. tel:[phone] Referring Provider: Partha Jaffe, [address] [place] [address], [facility]. tel:[phone] [facility] [address], [facility], tel:[phone] 700 [facility] No Information 2 Ayaan Chavis. [address] [place] [address], [facility], . tel:[phone] Referring Provider: Partha Jaffe, [address] [place] [address], [facility]. tel:[phone] [facility], [address] [place] [address], [facility], tel:[phone] 700 [facility] No Information 2 Deborah Sha. [address] [place] [address], [facility], . tel:[phone] Referring Provider: Partha Jaffe, [address] [place] [address], [facility]. tel:[phone] Office/outpa tient visit,[facility], [facility], [address] [place] [address], [facility], tel:[phone] [address] [facility] ([facility]) Presence of left artificial knee joint 2 Bills Sheila. [address] [place] [address], [facility], [place]. tel:[phone] Referring Provider: Sheila Fleming, [address] [place] [address], [facility]. tel:[phone] [facility], [address] [place] [address], [facility], tel:[phone] 700 [facility] General orthopedic (chief complaint) Unsp rotatr-cuff tear/ruptr of left shoulder, not traumaCutaneou s abscess of right upper limb 2 Bills Sheila. [address] [place] [address], [facility], . tel:[phone] Referring Provider: Sheila Fleming, [address] [place] [address], [facility]. tel:[phone] [facility], [address] [place] [address] [place], [address], [place] tel:[phone] [facility] General orthopedic (chief complaint) Unsp rotatr-cuff tear/ruptr of left shoulder, not trauma Russel-0 2 Bills Sheila. [address] [place] [address], [address], [place]. tel:[phone] Referring Provider: Partha Jaffe, [address] [place], [place], [facility]. tel:[phone] [facility], [address] [place] [address], [address], [place] tel:[phone] [facility] General orthopedic (chief complaint) Unsp rotatr-cuff tear/ruptr of left shoulder, not trauma October- 2 Bills Sheila. [address] [place] [address], [address], [place]. tel:[phone] Referring Provider: Sheila Fleming, [address] [place] [address], [facility]. tel:[phone] [facility], [address] [place] [address], [address], [place] tel:[phone] [facility] General orthopedic (chief complaint) Unsp rotatr-cuff tear/ruptr of left shoulder, not trauma October- 2 Billjuanita Sosa. [address] [place], [address], [place]. tel:[phone] Referring Provider: Partha Jaffe, [address], [place], [facility]. tel:[phone] [facility], [address] [place] [address], [address], [place] tel:[phone] [place] [place] No Information October- 2 Ayaan Chavis. [address] [place] [address], [facility], [place]. tel:[phone] Referring Provider: Partha Jaffe, [address] [place] [address], [facility]. tel:[phone] [facility], [address] [place] [address], [address], [place] tel:[phone] [facility] No Information 2 Deborah Dalton. [address] [place] [address], [address], [place]. tel:[phone] Referring Provider: Partha Jaffe, [address] [place] [address], [facility]. tel:[phone] Office/outpa tient visit,est, mod [facility], [address] [place] [address], [address], [place] tel:[phone] [facility] (chief complaint) Unsp rotatr-cuff tear/ruptr of left shoulder, not trauma 2 Ayaan Chavis. [address] [place] [address], [address], [place]. tel:[phone] Referring Provider: Partha Jaffe, [address] [place] [address], [facility]. tel:[phone] Office/outpa tient visit,est, low [facility], [address] [place] [address], [address], [place] tel:[phone] [facility] (chief complaint) Cutaneous abscess of right upper limb 2 Claudia Sosa. [address] [place] [address], [address], [place]. tel:[phone] Referring Provider: Partha Jaffe, [address] [place] [address], [facility]. tel:[phone] Office/outpa tient visit,est, mod [facility], [address] [place] [address], [address], [place] tel:[phone] [facility] (chief complaint) Primary osteoarthritis , left shoulderCellul itis of left upper limb 2 Claudia Sosa. [address] [place] [address], [address], [place]. tel:[phone] Referring Provider: Sheila Fleming, [address] [place] [address], [facility]. tel:[phone] Office/outpa tient visit,est, [facility], [address] [place] [address], [facility], tel:[phone] [address] [facility] (chief complaint) Primary osteoarthritis , left shoulder 1 Claudia Sosa. [address] [place] [address], [facility], . tel:[phone] Referring Provider: Sheila Fleming, [address] [place] [address], [facility]. tel:[phone] [facility], [address] [place] [address], [facility], tel:[phone] [address] [place] general orthopedic (chief complaint) Cellulitis of left upper limb 1 Ayaan Chavis. [address] [place] [address], [facility], . tel:[phone] Referring Provider: Partha Jaffe, [address] [place] [address], [facility]. tel:[phone] Office/outpa tient visit,est, [facility], [address] [place] [address], [facility], tel:[phone] 700 [facility] general orthopedic (chief complaint) Primary osteoarthritis , left shoulder 1 Claudia Sosa. [address] [place] [address], [facility], . tel:[phone] Referring Provider: Partha Jaffe, [address] [place] [address], [facility]. tel:[phone] Office/outpa tient visit,est, [facility], [address] [place] [address], [facility], tel:[phone] [address] [facility] (chief complaint) Primary osteoarthritis , right shoulderCutane ous abscess of right upper limbOther cervical disc degeneration, unsp cervical regionPrimary osteoarthritis , left shoulder 1 Claudia Sosa. [address] [place] [address], [facility], . tel:[phone] Referring Provider: Partha Jaffe, [address] [place] [address], [facility]. tel:[phone] Office/outpa tient visit,est, mod [facility], [address] [place], [address], [place] tel:[phone] [facility] general orthopedic (chief complaint) Unsp rotatr-cuff tear/ruptr of left shoulder, not traumaCutaneou s abscess of right upper limb Sep-2 1 Billjuanita Sosa. [address] [place] [address], [address], [place]. tel:[phone] Referring Provider: Sheila Fleming, [address] [place] [address], [facility]. tel:[phone] [facility], [address] [place] [address], [facility], tel:[phone] [facility] general orthopedic (chief complaint) Unsp rotatr-cuff tear/ruptr of left shoulder, not trauma Sep-1 1 Billjuanita Sheila. [address] [place] [address], [address], [place]. tel:[phone] Referring Provider: Partha Jaffe, [address] [place] [address], [facility]. tel:[phone] [facility], [address] [place] [address], [facility], [place] tel:[phone] [facility] general orthopedic (chief complaint) Unsp rotatr-cuff tear/ruptr of left shoulder, not trauma Aug-0 1 Billjuanita Sheila. [address] [place] [address], [facility], [place]. tel:[phone] Referring Provider: Partha Jaffe, [address] [place] [address], [facility]. tel:[phone] [facility], [address] [place] [address], [address], [place] tel:[phone] [facility] general orthopedic (chief complaint) Unsp rotatr-cuff tear/ruptr of left shoulder, not trauma 1 Billjuanita Sosa. [address] [place] [address], [address], [place]. tel:[phone] Referring Provider: Sha Atkins, [address] [place], [address]. tel:[phone] [facility], [address] [place] [address], [address], [place] tel:[phone] [facility] general orthopedic (chief complaint) Unsp rotatr-cuff tear/ruptr of left shoulder, not traumaCutaneou s abscess of right upper limb 1 Billjuanita Sosa. [address] [place] [address], [address], [place]. tel:[phone] Referring Provider: Partha Jaffe, [address] [place] [address], [facility]. tel:[phone] [facility], [address] [place] [address], [address], [place] tel:[phone] [facility] general orthopedic (chief complaint) Unsp rotatr-cuff tear/ruptr of left shoulder, not trauma 1 Ayaan Chavis. [address] [place] [address], [address], [place]. tel:[phone] Referring Provider: Partha Jaffe, [address] [place], [address]. tel:[phone] [facility], [address] [place] [address], [address], [place] tel:[phone] 700 [facility] general orthopedic (chief complaint) Unsp rotatr-cuff tear/ruptr of left shoulder, not trauma 1 Deborah Dalton. [address] [place], [address], [place]. tel:[phone] Referring Provider: Partha Jaffe, [address] [place], [address]. tel:[phone] [facility], [address] [place] [address], [address], [place] tel:[phone] 700 [facility] general orthopedic (chief complaint) Unsp rotatr-cuff tear/ruptr of left shoulder, not trauma 1 Deborah Dalton. [address] [place] [address], [facility], . tel:[phone] Referring Provider: Catarino Kinsey, [address], [place], [address] . tel:[phone] [facility], [address] [place] [address], [address], tel:[phone] 700 [facility] No Information 1 Ayaan Chavis. [address] [place] [address], [facility], . tel:[phone] Referring Provider: Partha Jaffe, [address] [place] [address], [facility]. tel:[phone] [facility], [address] [place] [address], [address], [place] tel:[phone] 700 [facility] No Information 1 Deborah Dalton. [address] [place] [address], [facility], . tel:[phone] Referring Provider: Partha Jaffe, [address] [place] [address], [facility]. tel:[phone] Office/outpa tient visit,est, mod [facility], [address] [place] [address], [address], [place] tel:[phone] 700 [facility] general orthopedic (chief complaint) Unsp rotatr-cuff tear/ruptr of left shoulder, not trauma 1 Ayaan Chavis. [address] [place] [address], [address], [place]. tel:[phone] Referring Provider: Partha Jaffe, [address] [place] [address], [facility]. tel:[phone] [facility], [place], [address], tel:[phone] 700 [facility] No Information 1 Ayaan Chavis. [address] [place] [address], [facility], . tel:[phone] Referring Provider: Partha Jaffe, [address] [place] [address], [facility]. tel:[phone] Office/outpa tient visit,[facility], [place], [address], tel:[phone] [facility] general orthopedic (chief complaint) No Information 1 Ayaan Chavis. [address] [place] [address], [address], . tel:[phone] Referring Provider: Partha Jaffe, [address] [place] [address], [facility]. tel:[phone] Family History Family Member Type Diagnosis Age At Onset Mother Problem (finding) Cancer Sister Problem (finding) Osteoarthritis Mother Problem (finding) Osteoarthritis Brother Problem (finding) Hypertension Mother Problem (finding) Hypertension Sister Problem (finding) Hypertension Father Problem (finding) Depression Mother Problem (finding) Diabetes mellitus Sister Problem (finding) Cancer Payers Payer name Insurance type Covered alliance party ID Authoriza tion(s) [place] [id number] [facility] [id number] Social History Type Description Quantity Date Captured [...] Radiology Order CT Lower Extremity/Leg WITHOUT Contrast (77065), Ordered on: Ordered Future Order: Radiology Order MR I Shoulder WO Contrast ([id number]), Ordered on: Ordered Future Order: Radiology Order Up per Extremity/Arm CT WITH Contrast ([id number]), Ordered on: Ordered Future Order: Radiology Order MR I Shoulder WO Contrast ([id number]), Collected on: , Sent on: Sent History [...]
--- OUTSIDE RECORDS SUMMARY | 2024-11-26 05:35 | XMS_ITS | Continuity of Care Document ---
Author Name [facility] Organization [facility] Care Team Providers Care Terrazzo Finisher Name Role Phone [facility] Unavailable Unavailable Problems Combined list of problems from Department of Defense and [facility] Affairs facilities. It does not include entries that were removed or entered in error. Problem Status Onset Date Problem Type Date of Resolution Comments Source Allergic rhinitis Active Condition [place] CAD - Coronary artery disease Active Condition Nov 23, 2022 Entered By: VERÓNICA LEAHY Comment: s/p cath and stent 05/2022 [place] [facility] Chronic obstructive lung disease Active Condition [place] [facility] Chronic pain Active Condition [place] [facility] Depressive disorder Active Condition [place] [facility] Diabetes Mellitus without mention of Complication, type II or unspecified type, Active Condition [facility] Diabetic neuropathy Active Condition [place] [facility] Gastroesophageal reflux disease (SNOMED CT [id number]) Active Condition [facility] Hyperlipidemia Active Condition [place] [facility] hypertension, essential Active Condition [facility] Insomnia Active Condition [place] [facility] Memory loss Active Condition [place] [facility] Obstructive sleep apnea syndrome Active Condition [place] [facility] Seborrhoeic dermatitis of scalp Active Condition [place] [facility] Severe persistent allergic asthma uncontrolled (SNOMED CT [id number]) Active Condition [place] [facility] Simple obesity Active Condition [place] [facility] Hyperglycemia Inactive Condition 05/28/2019 [place] [facility] NEUROTIC DEPRESSION Inactive Condition 05/28/2019 [place] [facility] Diagnosis: ICD-10-CM G47.33 Obstructive sleep apnea (adult) (pediatric) Active Diagnosis [facility] Diagnosis: ICD-10-CM J44.9 Chronic obstructive pulmonary disease, unspecified Active Diagnosis [facility] Diagnosis: ICD-10-CM J45.40 Moderate persistent asthma, uncomplicated Active Diagnosis [facility] Diagnosis: ICD-10-CM Z13.6 Encounter for screening for cardiovascular disorders Active Diagnosis [facility] Diagnosis: ICD-10-CM J45.50 Severe persistent asthma, uncomplicated Active Diagnosis [facility] Diagnosis: ICD-10-CM Z02.89 Encounter for other administrative examinations Active Diagnosis [facility] Diagnosis: ICD-10-CM Z71.0 Prsn encntr hlth serv to consult on behalf of another person Active Diagnosis [facility] Diagnosis: ICD-10-CM Z74.2 Need for assist at home & no house memb able to render care Active Diagnosis [facility] Diagnosis: ICD-10-CM Z71.89 Other specified counseling Active Diagnosis [place] [facility] [facility] Diagnosis: ICD-10-CM R06.00 Dyspnea, unspecified Active Diagnosis [facility] Medications Combined list of outpatient medications from Department of Defense and [facility] Affairs facilities.Medications provided include 1) outpatient medications from the last 15 months, and 2) patient-reported medications. Medication Details Route Status Patient Instructions Prescription Expires Prescription Number Last Dispense Date Ordering Provider Order Date Order Qty Source 14 MUSHROOM COMPLEX CAP/TAB TAKE BY MOUTH TWICE A DAY ORAL ACTIVE LEAHY,PRITCHARD UR N 2022 [place] [facility] ACETAMINOPH EN 325MG TAB TAKE TWO TABLETS BY MOUTH DAILY NEEDED ORAL ACTIVE LEAHY,PRITCHARD UR N 2022 [place] [facility] ALBUTEROL SO4 3MG/IPRATRO PIUM BR 0.5MG/3ML INHL,3ML USE 1 AMP (3ML) IN NEBULIZE R THREE TIMES A DAY RESPIR ATORY (INHAL ATION) ACTIVE LEAHY,PRITCHARD UR N 2020 [place] [facility] AL[facility]ER[facility] SO4 90MCG/ACTUA T (CFC-F) INHL,ORAL,8 .5GM INHALE 2 PUFFS BY MOUTH FOUR TIMES A DAY NEEDED FOR BREATHIN G RESPIR ATORY (INHAL ATION) 03/23/2024 [id number] 04/09/202 4 LEAHY,PRITCHARD UR N 2022 1 [place] [facility] ASPIRIN 81MG TAB,EC TAKE ONE TABLET BY MOUTH DAILY ORAL ACTIVE LEAHY,PRITCHARD UR N 2023 [place] [facility] ATORVASTATI N CA 40MG TAB TAKE ONE TABLET BY MOUTH DAILY ORAL ACTIVE LEAHY,PRITCHARD UR N 2023 [place] [facility] DULOXETINE HCL 60MG CAP,EC TAKE 1 CAPSULE BY MOUTH DAILY ORAL ACTIVE LEAHY,PRITCHARD UR N 2022 [place] [facility] EZETIMIBE 10MG TAB TAKE ONE TABLET BY MOUTH EVERY EVENING ORAL ACTIVE LEAHY,PRITCHARD UR N 2022 [place] [facility] FLUOXETINE HCL 20MG CAP TAKE 3 CAPSULES BY MOUTH DAILY ORAL ACTIVE LEAHY,PRITCHARD UR N 2020 [place] [facility] FLUTICASONE PROPIONATE 50MCG/SPRAY SOLN,NASAL, 16GM USE 2 SPRAYS IN EACH NOSTRIL DAILY NASAL ACTIVE LEAHY,PRITCHARD UR N 2023 [place] [facility] GABAPENTIN 400MG CAP TAKE 3 CAPSULES BY MOUTH THREE TIMES A DAY ORAL ACTIVE LEAHY,PRITCHARD UR N 2020 [place] [facility] INSULIN CONC REG 500 UNT/ML*KWIK PEN* INJ INJECT 40 UNITS UNDER THE SKIN EVERY MORNING AND INJECT 30 UNITS UNDER THE SKIN QAM QAM^EVER Y MORNING^ C^09 SUBCUT ANEOUS ACTIVE LEAHY,PRITCHARD UR N 2023 [place] [facility] KETOCONAZOL E 2% SHAMPOO SHAMPOO WITH SMALL AMOUNT AFFECTED AREA TWICE PER WEEK FOR DANDRUFF TOPICA L 01/28/2024 [id number] LEAHY,PRITCHARD UR N 2023 120 [place] [facility] LIDOCAINE 5% PATCH APPLY TO SKIN DAILY TRANSD ERMAL ACTIVE LEAHY,PRITCHARD UR N 2022 [place] [facility] LOPERAMIDE SUSP,ORAL TAKE BY MOUTH PRN ORAL ACTIVE LEAHY,PRITCHARD UR N 2020 [place] [facility] LORATADINE 10MG TAB TAKE ONE TABLET BY MOUTH DAILY ORAL ACTIVE LEAHY,PRITCHARD UR N 2023 [place] [facility] MOMETASONE FUROATE 200MCG/ACTU AT INHL,ORAL,1 20D,13GM INHALE 2 PUFFS BY MOUTH TWICE A DAY FOR ASTHMA -RINSE MOUTH AND SPIT AFTER EACH USE RESPIR ATORY (INHAL ATION) ACTIVE 04/20/2025 [id number] 5 LUCRECIA BULL 2023 3 [place] [facility] MONTELUKAST NA 10MG TAB TAKE ONE TABLET BY MOUTH AT BEDTIME FOR ASTHMA ORAL ACTIVE 03/31/2025 [id number] 5 JAZIEL MONTOYA 2023 90 [place] [facility] MONTELUKAST NA 10MG TAB TAKE ONE TABLET BY MOUTH AT BEDTIME FOR ASTHMA ORAL DISCONT INUED 04/07/2024 [id number] 4 LUCRECIA BULL 2022 90 [place] [facility] MULTIVITAMI NS W/MINERALS CAP/TAB TAKE 1 CAP(S)/T AB BY MOUTH DAILY ORAL ACTIVE LEAHY,PRITCHARD UR N 2022 [place] [facility] OLODATEROL 2.5MCG/TIOT ROPIUM 2.5MCG/ACTU AT INHL,ORAL,6 0D,4GM INHALE 2 PUFFS BY MOUTH DAILY FOR BREATHIN G ORAL ACTIVE 04/20/2025 [id number] 5 LUCRECIA BULL 2023 3 [place] [facility] PREDNISONE 20MG TAB TAKE TWO TABLETS BY MOUTH DAILY FOR LUNGS ORAL ACTIVE 09/08/2024 [id number] 4 LUCRECIA BULL 2023 20 [place] [facility] SEMAGLUTIDE (WT LOSS) INJ,SOLN INJECT UNDER THE SKIN EVERY WEEK SUBCUT ANEOUS ACTIVE LEAHY,PRITCHARD UR N 2023 [place] [facility] TICAGRELOR 90MG TAB TAKE ONE TABLET BY MOUTH TWICE A DAY ORAL ACTIVE LEAHY,PRITCHARD UR N 2022 [place] [facility] Allergies, Adverse Reactions, Alerts Combined list of allergies from Department of Defense and Veterans Affairs facilities. It does not include entries that were removed or entered in error. Substance Category Reaction Severity Reaction type Status Date Reported Comments Source BACTRIM Propensity to adverse reactions to drug (finding) HIVES active 8 [facility] LISINOPRIL Propensity to adverse reactions to drug (finding) Eruption active 9 [facility] NONSTEROIDAL ANTI-INFLAMMA TORY Propensity to adverse reactions to drug (finding) active 6 [facility] PRAVASTATIN Propensity to adverse reactions to drug (finding) Eruption active 2 [facility] Immunizations Combined list of available immunizations from the Department of Defense and Veterans Affairs facilities. Immunization Series Date Given Administered By Site Reaction Lot Number CVX Code Drug Region Manager Status Comments Source INFLUENZA, HIGH-DOSE, QUADRIVALENT 2 2022 197 complet ed HISTORICA L INFORMATI ON - FROM OTHER REGISTRY, [place] [facility] INFLUENZA, INJECTABLE, QUADRIVALENT, PRESERVATIVE FREE 1 2021 150 complet ed HISTORICA L INFORMATI ON - FROM OTHER REGISTRY, [place] [facility] COVID-19 ([employer]), MRNA, LNP-S, BIVALENT, PF, 30 MCG/0.3 ML DOSE 1 2021 300 complet ed HISTORICA L INFORMATI ON - FROM PATIENT'S WRITTEN RECORD, [place] [facility] INFLUENZA, UNSPECIFIED FORMULATION 2021 88 complet ed Completed Series, HISTORICA L INFORMATI ON - FROM PATIENT'S RECALL, [place] [facility] COVID-19 ([employer]), MRNA, LNP-S, PF, 30 MCG/0.3 ML DOSE, RISA-SUCROSE (AGES 12+ YEARS) 1 2021 217 complet ed HISTORICA L INFORMATI ON - FROM OTHER REGISTRY, [place] [facility] INFLUENZA, UNSPECIFIED FORMULATION 2021 88 complet ed [place] [facility] PNEUMOCOCCAL CONJUGATE PCV20, POLYSACCHARID E [id number] CONJUGATE, ADJUVANT, PF 2021 216 complet ed HISTORICA L INFORMATI ON - FROM PATIENT'S WRITTEN RECORD, [place] [facility] COVID-19 (P[employer]ER), MRNA, LNP-S, PF, 30 MCG/0.3 ML DOSE 2 2020 208 complet ed [facility] COVID-19 (GELA), VECTOR-NR, [id number], PF, 0.5 ML 1 2020 212 complet ed [place] [facility] INFLUENZA, UNSPECIFIED FORMULATION 2019 88 complet ed [place] [facility] RECOMBIN[facility] 2 2018 187 complet ed HISTORICA L INFORMATI ON - FROM PATIENT'S WRITTEN RECORD, [place] [facility] RECOMBINANT 1 2018 187 complet ed HISTORICA L INFORMATI ON - FROM PATIENT'S WRITTEN RECORD, [place] [facility] TD(ADULT) UNSPECIFIED FORMULATION 2006 139 complet ed [place] [facility] INFLUENZA A & B (HISTORICAL) 2005 88 complet ed [place] [facility] INFLUENZA A & B (HISTORICAL) 2004 88 complet ed [place] [facility] FLU,3 YRS (HISTORICAL) 2002 DENIA FLORES T 88 complet ed [place] [facility] INFLUENZA, UNSPECIFIED FORMULATION 1996 TURCIOS 88 complet ed [place] [facility] TD(ADULT) UNSPECIFIED FORMULATION 1996 CJ VIVEROS T 139 complet ed pt states given in 1996 [place] [facility] INFLUENZA, UNSPECIFIED FORMULATION 1995 ANAYA ZAMARRIPA IS D 88 complet ed [place] [facility] PNEUMOCOCCAL, UNSPECIFIED FORMULATION 1993 CJ VIVEROS T 109 complet ed pt states given in 1993 [place] [facility] Results Combined list of recent chemistry, hematology and other laboratory results from Department of Defense and Veterans Affairs, ranging from 15 months to all on record, depending upon the facility. Order Name Results Value Reference Range Date Interpretation Specimen Comments Source IMMUNOGLOB ULIN E IGE [UNITS/VOLU ME] IN SERUM OR PLASMA 147 [IU]/m L 6 - 495 09/07 Specimen Type: SERUM No comment entered. Ordering Provider: JAYE BULL Report Released Date/Time: Sep 08, 2023 10:30 AM Reporting Lab: [address] [address] Performing Lab: [facility] [address] [place] [id number] [place] [facility] BNP (GONSALEZ) NATRIURETIC PEPTIDE B [MASS/VOLUM E] [...] Sep 08, 2023 10:30 AM Reporting Lab: [address] [address] Performing Lab: [address] [address] [facility] AUTOMATED DIFF LYMPHOCYTES /100 LEUKOCYTES IN BLOOD BY AUTOMATED COUNT 20.4 24.0 - 44.0 09/07 L Specimen Type: BLOOD No comment entered. Ordering Provider: JAYE BULL Report Released Date/Time: Sep 08, 2023 10:30 AM Reporting Lab: [address] [address] Performing Lab: [address] [address] [facility] AUTOMATED DIFF MONOCYTES/1 00 LEUKOCYTES IN BLOOD BY AUTOMATED COUNT 6.5 0.1 - 6.0 09/07 H Specimen Type: BLOOD No comment entered. Ordering Provider: JAYE BULL Report Released Date/Time: Sep 08, 2023 10:30 AM Reporting Lab: [address] [address] Performing Lab: [place] [id number] [place] [facility] AUTOMATED DIFF GRANULOCYTE S/100 LEUKOCYTES IN BLOOD BY AUTOMATED COUNT 68.5 42.0 - 75.0 09/07 Specimen Type: BLOOD No comment entered. Ordering Provider: JAYE BULL Report Released Date/Time: Sep 08, 2023 10:30 AM Reporting Lab: [address] Performing Lab: [place] [id number] [facility] AUTOMATED DIFF LYMPHOCYTES [#/VOLUME] IN BLOOD BY AUTOMATED COUNT 2.66 10*3/u L 1.20 - 3.40 09/07 Specimen Type: BLOOD No comment entered. Ordering Provider: JAYE BULL Report Released Date/Time: Sep 08, 2023 10:30 AM Reporting Lab: [address] Performing Lab: [place] [id number] [facility] AUTOMATED DIFF MONOCYTES [#/VOLUME] IN BLOOD BY AUTOMATED COUNT 0.85 10*3/u L 0.00 - 0.60 09/07 H Specimen Type: BLOOD No comment entered. Ordering Provider: JAYE BULL Report Released Date/Time: Sep 08, 2023 10:30 AM Reporting Lab: [place] [id number] Performing Lab: [place] [id number] [facility] AUTOMATED DIFF GRANULOCYTE S [#/VOLUME] IN BLOOD BY AUTOMATED COUNT 8.95 10*3/u L 1.40 - 6.50 09/07 H Specimen Type: BLOOD No comment entered. Ordering Provider: JAYE BULL Report Released Date/Time: Sep 08, 2023 10:30 AM Reporting Lab: [place] [phone] Performing Lab: [place] [id number] [place] [facility] AUTOMATED DIFF BASOPHILS/1 00 LEUKOCYTES IN BLOOD BY AUTOMATED COUNT 0.5 0.0 - 3.0 09/07 Specimen Type: BLOOD No comment entered. Ordering Provider: JAYE BULL Report Released Date/Time: Sep 08, 2023 10:30 AM Reporting Lab: [address] [address] Performing Lab: [address] [address] [place] [facility] AUTOMATED DIFF BASOPHILS [#/VOLUME] IN BLOOD BY AUTOMATED COUNT 0.06 10*3/u L 0.00 - 0.20 09/07 Specimen Type: BLOOD No comment entered. Ordering Provider: JAYE BULL Report Released Date/Time: Sep 08, 2023 10:30 AM Reporting Lab: [address] [address] Performing Lab: [place] [phone] [facility] AUTOMATED DIFF EOSINOPHILS /100 LEUKOCYTES IN BLOOD BY AUTOMATED COUNT 3.6 0.0 - 10.0 09/07 Specimen Type: BLOOD No comment entered. Ordering Provider: JAYE BULL Report Released Date/Time: Sep 08, 2023 10:30 AM Reporting Lab: [address] [address] Performing Lab: [address] [address] [facility] AUTOMATED DIFF EOSINOPHILS [#/VOLUME] IN BLOOD BY AUTOMATED COUNT 0.47 10*3/u L 0.00 - 0.70 09/07 Specimen Type: BLOOD No comment entered. Ordering Provider: JAYE BULL Report Released Date/Time: Sep 08, 2023 10:30 AM Reporting Lab: [address] [address] Performing Lab: [address] [address] [place] [facility] AUTOMATED DIFF IMMATURE GRANULOCYTE S/100 LEUKOCYTES IN BLOOD 0.5 0.0 - 0.5 09/07 Specimen Type: BLOOD No comment entered. Ordering Provider: JAYE BULL Report Released Date/Time: Sep 08, 2023 10:30 AM Reporting Lab: [address] [address] Performing Lab: [address] [phone] [place] [address] [facility] AUTOMATED DIFF IMMATURE GRANULOCYTE S [#/VOLUME] IN BLOOD 0.06 10*3/u L 0.00 - 0.06 09/07 Specimen Type: BLOOD No comment entered. Ordering Provider: JAYE BULL Report Released Date/Time: Sep 08, 2023 10:30 AM Reporting Lab: [place] [phone] Performing Lab: [place] [phone] [place] [address] [facility] CBC/PLT LEUKOCYTES [#/VOLUME] IN BLOOD BY AUTOMATED COUNT 13.1 10*3/u L 5.0 - 10.0 09/07 H Specimen Type: BLOOD No comment entered. Ordering Provider: JAYE BULL Report Released Date/Time: Sep 08, 2023 10:30 AM Reporting Lab: [address] [address] Performing Lab: [place] [id number] [place] [address] [facility] CBC/PLT ERYTHROCYTE S [#/VOLUME] IN BLOOD BY AUTOMATED COUNT 4.92 10*6/u L 4.6 - 6.2 09/07 Specimen Type: BLOOD No comment entered. Ordering Provider: JAYE BULL Report Released Date/Time: Sep 08, 2023 10:30 AM Reporting Lab: [place] [phone] Performing Lab: [place] [address] [place] [address] [facility] CBC/PLT HEMOGLOBIN [MASS/VOLUM E] IN BLOOD 14.7 g/dL 14.0 - 18.0 09/07 Specimen Type: BLOOD No comment entered. Ordering Provider: JAYE BULL Report Released Date/Time: Sep 08, 2023 10:30 AM Reporting Lab: [place] [phone] Performing Lab: [place] [id number] CBC/PLT HEMATOCRIT [VOLUME FRACTION] OF BLOOD BY AUTOMATED COUNT 46.1 42.0 - 52.0 09/07 Specimen Type: BLOOD No comment entered. Ordering Provider: JAYE BULL Report Released Date/Time: Sep 08, 2023 10:30 AM Reporting Lab: [place] [phone] Performing Lab: [place] [phone] [facility] CBC/PLT MCV [ENTITIC VOLUME] BY AUTOMATED COUNT 93.7 fL 80.0 - 94.0 09/07 Specimen Type: BLOOD No comment entered. Ordering Provider: JAYE BULL Report Released Date/Time: Sep 08, 2023 10:30 AM Reporting Lab: [place] [phone] Performing Lab: [place] [id number] [facility] CBC/PLT MCH [ENTITIC MASS] BY AUTOMATED COUNT 29.9 pg 27.0 - 31.0 09/07 Specimen Type: BLOOD No comment entered. Ordering Provider: JAYE BULL Report Released Date/Time: Sep 08, 2023 10:30 AM Reporting Lab: [address] [address] Performing Lab: [address] [address] [facility] CBC/PLT MCHC [MASS/VOLUM E] BY AUTOMATED COUNT 31.9 g/dL 32.0 - 36.0 09/07 L Specimen Type: BLOOD No comment entered. Ordering Provider: JAYE BULL Report Released Date/Time: Sep 08, 2023 10:30 AM Reporting Lab: [address] [address] Performing Lab: [address] [address] [facility] CBC/PLT PLATELETS [#/VOLUME] IN BLOOD 229 10*3/u L 150 - 450 09/07 Specimen Type: BLOOD No comment entered. Ordering Provider: JAYE BULL Report Released Date/Time: Sep 08, 2023 10:30 AM Reporting Lab: [address] [address] Performing Lab: [address] [address] [facility] CBC/PLT PLATELET MEAN VOLUME [ENTITIC VOLUME] IN BLOOD 9.7 fL 9.0 - 13.1 09/07 Specimen Type: BLOOD No comment entered. Ordering Provider: JAYE BULL Report Released Date/Time: Sep 08, 2023 10:30 AM Reporting Lab: [address] [address] Performing Lab: [place] [phone] [facility] CBC/PLT ERYTHROCYTE DISTRIBUTIO N WIDTH [ENTITIC VOLUME] BY AUTOMATED COUNT 14.5 11.0 - 16.0 09/07 Specimen Type: BLOOD No comment entered. Ordering Provider: JAYE BULL Report Released Date/Time: Sep 08, 2023 10:30 AM Reporting Lab: [address] [address] Performing Lab: [address] [address] [facility] CBC/PLT NUCLEATED ERYTHROCYTE S/100 ERYTHROCYTE S IN BLOOD 0.0 0.0 - 0.0 09/07 Specimen Type: BLOOD No comment entered. Ordering Provider: JAYE BULL Report Released Date/Time: Sep 08, 2023 10:30 AM Reporting Lab: [address] [address] Performing Lab: [address] [address] [facility] Vital Signs Combined list of inpatient and outpatient Vital Signs from Department of [facility] and [facility], ranging from 12 months to all on record, depending upon the facility. Vital Sign Value Date Comments Source SYSTOLIC BLOOD PRESSURE 131 12/29/2023 13:33:06 [facility] DIASTOLIC BLOOD PRESSURE 82 12/29/2023 13:33:06 [facility] PULSE OXIMETRY 95 12/29/2023 13:33:06 L [place] [facility] WEIGHT 322 12/29/2023 13:33:06 [place] [facility] BMI 46 kg/m2 12/29/2023 13:33:06 [place] [facility] PAIN 2 12/29/2023 13:33:06 [place] [facility] HEIGHT 70 12/29/2023 13:33:06 [place] [facility] TEMPERATURE 97.2 12/29/2023 13:33:[address] [facility] PULSE 91 12/29/2023 13:33:06 [place] [facility] Encounters Combined list of: 1) Encounters from Department of Veterans Affairs facilities going backup to the last 18 months, not all [place] inpatient encounters are included; 2) Encounters from the Department of [facility] facilities going backup to 280 months. Location Location Details Encounter Type Encounter Number Reason For Visit Attending Provider ADM Date DC Date Status Disposition Source [facility] [place] ED[place] & [place] [id number] Diagnos is: ICD-10- CM J44.9 Chronic obstruc tive pulmona ry disease , unspeci fied ALEXX,AN CORNELL N 06/01 [place] [facility] & [place] [address] [id number] Diagnos is: ICD-10- CM J44.9 Chronic obstruc tive pulmona ry disease , unspeci fied ALEXX,AN CORNELL N 06/07 [place] [facility] Outpatient Encounter [id number] 06/24 [place] [facility] Outpatient Encounter [id number] 07/05 [place] [facility] ED[facility] & [place] [id number] Diagnos is: ICD-10- CM J44.9 Chronic obstruc tive pulmona ry disease , unspeci fied ALEXX,SABA CORNELL N 07/06 [place] [facility] S[facility] EDUC & [place] 1 [place] [id number] Diagnos is: ICD-10- CM J44.9 Chronic obstruc tive pulmona ry disease , unspeci fied ALEXX,SABA CORNELL N 07/12 [place] Outpatient Encounter [id number] 07/26 [place] SELF-MGMT EDUC & TRA[place] 1 [place] [id number] Diagnos is: ICD-10- CM J44.9 Chronic obstruc tive pulmona ry disease , unspeci fied ALEXX,SABA CORNELL N 08/01 [place] SELF-MGMT EDUC & [place] 1 [place] [id number] Diagnos is: ICD-10- CM J44.9 Chronic obstruc tive pulmona ry disease , unspeci fied ALEXX,SABA CORNELL N 08/11 [place] Outpatient Encounter [id number] 08/16 [place] [facility] Outpatient Encounter [id number] 08/16 [place] HC PRO PHONE CALL 21-30 MIN [id number] Diagnos is: ICD-10- CM J44.9 Chronic obstruc tive pulmona ry disease , unspeci fied SABA COFFEY N 08/22 [place] [facility] Outpatient Encounter [id number] 09/01 [place] [facility] [place] [facility] HC PRO PHONE CALL 11-20 MIN [id number] Diagnos is: ICD-10- CM J44.9 Chronic obstruc tive pulmona ry disease , unspeci fied SABA COFFEY N 09/05 [place] [facility] Outpatient Encounter [id number] EDUARDO BOYD 09/06 [place] [facility] OFF[place] EST HI 40 MIN [id number] Diagnos is: ICD-10- CM R06.00 Dyspnea , unspeci fied MONTOYA,GEETHA HAEL F 09/07 [place] [facility] AIRWAY INHALATION TREATMENT [id number] Diagnos is: ICD-10- CM J44.9 Chronic obstruc tive pulmona ry disease , unspeci fied ASYA,BRA NDY R 09/07 [place] [facility] [place] [facility] Outpatient Encounter [id number] 09/12 [place] [facility] [place] [facility] Outpatient Encounter [id number] 09/19 [place] [facility] [place] [facility] Outpatient Encounter [id number] 09/26 [place] [facility] [place] [facility] HC PRO PHONE CALL 11-20 MIN [id number] Diagnos is: ICD-10- CM J44.9 Chronic obstruc tive pulmona ry disease , unspeci fied GARCÍA FAROOQ 10/13 [place] [facility] CASE MANAGEMENT [id number] Diagnos is: ICD-10- CM Z71.89 Other specifi ed peer counselor JARROD Mckenna 11/21 [place] [facility] Outpatient Encounter [id number] DOMINIQUE RANKIN 11/22 [place] [facility] HC PRO PHONE CALL 21-30 MIN [id number] Diagnos is: ICD-10- CM Z74.2 Need for assist at home and no house memb able to render care DOMINIQUE RANKIN 11/22 [place] [facility] HC PRO PHONE CALL 5-10 MIN [id number] Diagnos is: ICD-10- CM Z71.0 Prsn encntr hlth serv to consult on behalf of another person MARLENI PRECIADO 11/22 [place] [facility] Outpatient Encounter [id number] 11/27 [place] [facility] HC PRO PHONE CALL 21-30 MIN [id number] Diagnos is: ICD-10- CM Z71.0 Prsn encntr hlth serv to consult on behalf of another person KEVIN SOTO 11/27 [place] [facility] Outpatient Encounter [id number] 11/28 [place] [facility] Outpatient Encounter [id number] 11/29 [place] [facility] HC PRO PHONE CALL 21-30 MIN [id number] Diagnos is: ICD-10- CM Z02.89 Encount er for other adminis trative examina KEVIN Barrientos 12/08 [place] [facility] Outpatient Encounter [id number] 12/08 [place] [facility] Outpatient Encounter [id number] 12/25 [place] [facility] OFF/OP EST MAY X REQ PHY/QHP [id number] Diagnos is: ICD-10- CM J44.9 Chronic obstruc tive pulmona ry disease , unspeci fied ME TELLO SCHULTZ L 12/27 [place] [facility] Outpatient Encounter [id number] 12/28 [place] [facility] Outpatient Encounter [id number] 12/28 [place] [facility] OFFICE O/P EST MOD 30 MIN [id number] Diagnos is: ICD-10- CM J45.50 Severe persist ent asthma, uncompl icated POLO LEAHY N 12/28 [place] [facility] Outpatient Encounter [id number] 01/01 [place] [facility] Outpatient Encounter [id number] 01/12 [place] [facility] Outpatient Encounter [id number] 01/19 [place] [facility] HC PRO PHONE CALL 5-10 MIN [id number] Diagnos is: ICD-10- CM Z02.89 Encount er for other adminis trative examina GOPAL Egan 01/19 [place] [facility] Outpatient Encounter [id number] 01/22 [place] [facility] Outpatient Encounter [id number] 03/13 [place] [facility] Outpatient Encounter [id number] 04/05 [place] [facility] Outpatient Encounter [id number] 04/06 [place] [facility] OFFICE O/P EST HI 40 MIN [id number] Diagnos is: ICD-10- CM J45.50 Severe persist ent asthma, uncompl icated KELLEN MONTOYA HEAmelie J 04/19 [place] [facility] MEASURE BLOOD OXYGEN LEVEL [id number] Diagnos is: ICD-10- CM J44.9 Chronic obstruc tive pulmona ry disease , unspeci fied HANNAH LOO RI E 04/19 [place] [facility] Outpatient Encounter [id number] 04/23 [place] [facility] Outpatient Encounter [id number] 06/19 [place] [facility] TTE W/DOPPLER COMPLETE [id number] Diagnos is: ICD-10- CM Z13.6 Encount er for screeni ng for cardiov ascular disorde rs JUSTIN PATEL Lizz R 07/12 [place] [facility] Outpatient Encounter [id number] 07/13 [place] [facility] Outpatient Encounter [id number] 07/16 [place] [facility] Outpatient Encounter [id number] 07/17 [place] [facility] [place] Outpatient Encounter [id number] 08/08 [place] [facility] [place] [facility] SYNCH AUDIO-ONLY EST MOD 30 [id number] Diagnos is: ICD-10- CM J45.40 Moderat e persist ent asthma, uncompl icated ARVIND LIPSCOMB 08/09 [place] [facility] PT EDUCATION NOC INDIVID [id number] Diagnos is: ICD-10- CM J44.9 Chronic obstruc tive pulmona ry disease , unspeci fied EBER,ME SANON L 09/06 [place] [facility] PH1 ASSMT&MGMT NQHP 11-20 [id number] Diagnos is: ICD-10- CM G47.33 Obstruc tive sleep apnea (adult) (pediat juana) ASYA,JESUS NDY R 09/07 [place] Social History Combined list of available smoking, tobacco, and other social history from Department of Defense and Veterans Affairs facilities. Social History Type Response Date Comment Sourc e Tobacco smoking status NHIS CT-TOBACCO QUIT 15 YRS OR MORE 11/23/2022 [facility] of [facility] History of tobacco use CT-TOBACCO FORMER USER 10/16/2021 [facility] History of tobacco use CT-TOBACCO FORMER USER 09/11/2020 [facility] History of tobacco use CT-TOBACCO QUIT 5 TO < 15 YRS 05/07/2019 [facility] History of tobacco use V9 TOBACCO OFFERED 03/12/2010 [facility] History of tobacco use 9 QUIT TOBACCO IN THE LAST 12 MONTHS 02/16/2008 [facility] History of tobacco use V9 CURRENT TOBACCO USER 10/06/2006 [facility] History of tobacco use V9 CURRENT TOBACCO USER 07/01/2006 [facility] History of tobacco use HF V9 CURRENT SMOKER 07/02/2005 1ppd [facility] History of tobacco use NON-TOBACCO USER 12/25/1998 [facility] History of tobacco use NON-TOBACCO USER 01/17/1998 [facility] Plan of Care List of future care activities from Department [facility] facilities. Additional future care activities may be listed in the Assessment and Plan section. Date/Time Care Activity Care Activity Detail Facili ty 12/07/2024 AMBULATORY - NEUROLOGY AMBULATORY - NEURO LOGY [facility]
--- NOTE | 2024-11-27 19:18 | ECG_ITS ---
APPROVED REPORT Exam: Resting ECG HR:90 bpm ECG Measurements Heart Rate 90 AXES MA 177 P 4 QRSd 173 QRS -20 QT 406 T 6 QTc 454 Conclusion SINUS RHYTHM RIGHT BUNDLE BRANCH BLOCK [120+ ms QRS DURATION, UPRIGHT V1, 40+ ms S IN I/aVL/V4/V5/V6] ABNORMAL ECG UNCONFIRMED REPORT Electronically signed by : GI CAAL, 11/29/2024 01:12:56
[2024-11-27 19:21] VITALS: BP 160/80; PULSE 91; RESP 18; TEMP 36.6; O2SAT 96; BMI 46.6
--- OUTSIDE RECORDS SUMMARY | 2024-11-27 19:29 | XMS_ITS | Clinical Summary ---
Author Organization [facility] Address [address] [place] [address] Care Team Providers Care Director Cardiovascular Name Role Phone Firtz Leung MD Unavailable [phone] Jose Thurman MD Primary Care Provider [phone] Allergies Active Allergy Reactions Criticality Noted Date Comments Lisinopril Rash Low 05/28/2019 Nsaids Anaphylaxis High 06/28/2022 Rash, difficulty breathing Penicillins Other - please document in the comment field Low 12/01/2022 Shot, dizziness Sulfa Drugs Rash Low 11/24/2020 Sulfamethoxazole-Trim ethoprim Cough Low 01/01/1998 Medications aspirin 81 MG EC tablet Take 1 tablet (81 mg) by mouth 1 (one) time each day. Active DULoxetine (Cymbalta) [address] capsule Take 1 capsule (20 mg) by mouth 1 (one) time each day. Do not crush or chew. Active atorvastatin (Lipitor) 40 MG tablet Take 1 tablet (40 mg) by mouth 1 (one) time each day. Active tamsulosin (Flomax) 0.4 MG 24 hr capsule Take 1 capsule (0.4 mg) by mouth 1 (one) time each day. Active ticagrelor (Brilinta) 90 MG tablet Take 1 tablet (90 mg) by mouth 2 (two) times a day. Active acetaminophen (Tylenol) 500 MG tablet Take 2 tablets (1,000 mg) by mouth every 6 (six) hours if needed. Active Albuterol Sulfate, sensor, 108 (90 Base) MCG/ACT aerosol powder Inhale 3 (three) times a day if needed. Active mometasone (Asmanex, 120 Metered Doses,) 220 MCG/ACT inhaler Inhale 1 (one) time each day. Active ASPIRIN 81 PO 1 capsule 1 (one) time each day. Active diphenhydrAMINE (BENADryl) 25 MG capsule Active naphazoline-phen iramine (Eye Allergy Relief) 0.025-0.3 % ophthalmic solution Eye Allergy Relief eye drops daily prn Active olodaterol (Striverdi Respimat) 2.5 MCG/ACT inhaler 1 (one) time each day. Active oxygen (O2) gas 1 Device by Other route. Active albuterol 108 (90 Base) MCG/ACT inhaler Inhale if needed. Active tiotropium-oloda terol (Stiolto Respimat) 2.5-2.5 MCG/ACT aerosol solution inhaler 1 (one) time each day. Active acetaminophen (Tylenol 8 Hour) 650 MG ER tablet every 8 (eight) hours if needed. Active amLODIPine (Norvasc) 10 MG tablet 2 Active cetirizine (ZyrTEC) 10 MG tablet 1 tablet (10 mg). 2 Active diclofenac (Voltaren) 1 % topical gel Place on the skin if needed. 2 Active DULoxetine (Cymbalta) [address] capsule Take 30 mg by mouth twice a day. Active ezetimibe (Zetia) 10 MG tablet Take by mouth 1 (one) time each day. 3 Active FLUoxetine (PROzac) 20 MG capsule Take 3 capsules (60 mg) by mouth 1 (one) time each day. 3 capsules 3 Active fluticasone (Flonase) 50 MCG/ACT nasal spray USE 1 SPRAY(S) IN EACH NOSTRIL ONCE DAILY 2 Active gabapentin (Neurontin) 600 MG tablet gabapentin 600 mg tablet TAKE 2 TABLETS BY MOUTH THREE TIMES DAILY Active Advocate Insulin Pen [place] 31G X 8 MM [facility] 2 Active HumuLIN R U-500 KWIKPEN 500 UNIT/ML CONCENTRATED injection pen Inject under the skin. 60-70 units depending on fingerstick check 3 Active ipratropium-albu terol (Duo-Neb) 0.5-2.5 mg/3 mL nebulizer solution Take 3 mL by nebulization if needed. Active lidocaine (Lidoderm) 5 % patch Apply topically 1 (one) time each day. 2 Active nystatin (Mycostatin) ointment Apply topically if needed. 2 Active pravastatin (Pravachol) 20 MG tablet 2 Active loratadine (Claritin) 10 MG tablet Take 1 tablet (10 mg) by mouth 1 (one) time each day. Active DULoxetine (Cymbalta) [address] capsule Take by mouth 1 (one) time each day. 3 Active benzonatate (Tessalon) 100 MG capsule if needed. 4 Active clopidogrel (Plavix) 75 MG tablet 4 Active Ozempic, 2 MG/DOSE, 8 MG/3ML solution pen-injector Inject 2 mg every week by subcutaneous route for 28 days. 4 Active nystatin-triamci nolone (Mycolog II) cream Use to affected areas BID as needed. 15 g 5 Active Active Problems Problem Noted Date Diagnosed Date Class III obesity with body mass index (BMI) of 40.0 or higher 01/26/2023 Phimosis 11/04/2022 Overview (11/04/2022): Added automatically from request for surgery [id number] Encounters Date Type Department Care Team Description 09/10/2024 [facility]ill [facility] [address] [place] [id number] Belinda Styles, LUMBER CUTTER, DNP from Last 3 Months Family History 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 Relation Name Comments Diabetes Mother Pancreatic cancer Mother COPD Other Diabetes Other Emphysema Other Hypertension Other Pancreatic cancer Other Anesthesia problems Neg Hx Malig Hyperthermia Neg Hx Relation Name Status Comments Mother Other Social History Tobacco Use Types Packs/Day Years Used Date Smoking Tobacco: Former Cigarettes 2 2012 Tobacco Cessation:Counseling Given: Not Answered Alcohol Use Standard Drinks/Week Comments Not Currently 0 (1 standard drink = 0.6 oz pur e alcohol) not for many years PHQ-2 Answer Date Recorded Patient Health Questionnaire-2 Score 0 05/21/2024 PHQ-2A Answer Date Recorded Patient Health Questionnaire-2 Score 0 10/25/2022 Sex and Gender Information Value Date Recorded Sex Assigned at Male 12/14/2022 8:07 AM EDT Legal Sex Male 8:21 PM EDT Gender Identity Male 12/14/2022 8:07 AM EDT Sexual Orientation Not on file Last Filed Vital Signs Vital Sign Reading Time Taken Comments Blood Pressure 103/70 05/21/2024 2:25 PM EST Pulse 97 05/21/2024 2:25 PM EST Temperature 37 C (98.6 F) 05/21/2024 2:25 PM EST Respiratory Rate 16 01/26/2024 10:10 AM EDT Oxygen Saturation 94% 05/21/2024 2:25 PM EST Inhaled Oxygen Concentration - - Weight 147 kg (323 lb 3.1 oz) 05/21/2024 2:25 PM EST Height 177.8 cm (5' 10 ) 01/26/2024 10:10 AM EDT Body Mass Index 46.37 01/26/2024 10:10 AM EDT Plan of Treatment Upcoming Encounters Date Type Department Care Team (Late st Contact Info) Description 12/26/2024 11:40 AM EDT Office Visit Professional [facility] Nephrology, Bone & Mineral Metabolism [address], [address] [place] [address] Teresa Gil MD [address] [place] [address] 05/27/2025 2:30 PM EST Office Visit [facility] [address] [place] [address] Yvon Monteiro MD [address] [place] [address] Health Maintenance Due Date Last Done Comments [facility]-Hepatitis C Screening 1955 [facility]-/Child/Adol SDOH Screenings 1954 Diabetes: Dental Exam 1964 [facility]- SDOH Screenings 1972 [facility]-Adult SDOH Screenings 1972 CT Colonography 1999 Colonoscopy 1999 FIT-DNA 1999 FIT 1999 FOBT 1999 Sigmoidoscopy 1999 [facility]-Colorectal Cancer Screening 1999 [facility]-RSV Vaccine: 60+ Years or (1 - Risk 60-74 years 1-dose series) 2014 [facility]-Zoster Vaccines (2 of 3) 04/08/2015 02/11/2015 [facility]-Abdominal Aortic Aneurysm (AAA) Screening 2019 [id number] Vaccine ( season) 2024 01/26/2022, 11/10/2021, 05/29/2021, Additional history exists [facility]-Influenza Vaccine (Season Ended) 2025 04/07/2023, 04/23/2022, 03/20/2022, Additional history exists [facility]-Diabetes: Hemoglobin A1C 2025, 08/29/2023, 10/26/2021, Additional history exists [facility]-Depression Screening 05/21/2025 05/21/2024 [facility]-Medicare Annual Wellness (AWV) 09/04/2025 09/04/2024, 08/29/2023, 10/26/2021, Additional history exists [facility]-Lung Cancer Screening 09/28/20252024, 02/21/2024, 01/25/2023 [facility]-DTaP,Tdap,and Td Vaccines (3 - Td or Tdap) 02/17/2026 02/18/2016, 12/02/2008, 02/27/2007, Additional history exists [facility]-Hepatitis A Vaccines Aged Out 08/15/2019, 09/2018 No longer eligible based on patient's age to complete this topic [facility]-Pneumococcal Vaccine: 50+ Years Completed 08/18/2021, 08/02/2020, 06/29/2019, Additional history exists [facility]-Obesity Intervention Completed 024, 01/26/2024, 01/26/2024, Additional history exists HPV Vaccines Aged Out No longer eligi ble based on patient's age to complete this topic [facility]-HIB Vaccines Aged Out No longer e ligible based on patient's age to complete this topic [facility]-IPV Vaccines Aged Out No longer e ligible based on patient's age to complete this topic [facility]-Rotavirus Vaccines Aged Out No lo nger eligible based on patient's age to complete this topic Insurance MEDICARE [facility] Care Teams Director Cardiovascular Relationship Specialty Start Date End Date Jose Thurman MD [address] [place] [address] PCP - General 01/26/23 Fritz Leung MD [address] [place] [address] Referring Physician 06/28/22
--- OUTSIDE RECORDS SUMMARY | 2024-11-27 19:30 | XMS_ITS | Clinical Summary ---
Author Organization [facility] Address [address] [place] [address] Phone Care Team Providers Care Plaque Maker Name Role Phone Catarino Ryan MD Primary Care Provider [phone] Allergies Active Allergy Reactions Criticality Noted Date Comments Aspirin Rash Low 11/24/2020 Decreased ability to breath Nsaids (Non-Steroidal Anti-Inflammatory Drug) Rash Medium 11/24/2020 Decreased ability to breath Pravastatin Rash Low 07/27/2021 Sulfa (Sulfonamide Antibiotics) Rash Low 11/24/2020 Medications Oxygen and Equipment MISCELLANEOU 1 Device by MISCELLANEOUS route once. 2 liters at HS and with activity Active mometasone (ASMANEX) 220 mcg/ actuation (30) Inhl Aerosol Powdr Breath Activated Inhale 2 Puffs into the lungs nightly. Active tiotropium-oloda teroL (STIOLTO RESPIMAT) 2.5-2.5 mcg/actuation Inhl Mist Inhale 2 Puffs into the lungs nightly. Active acetaminophen (TYLENOL) 325 mg Oral Tablet Take 650 mg by mouth 3 times daily. Active gabapentin (NEURONTIN) 600 mg Oral Tablet Take 600 mg by mouth 2 times daily. 2 tablets tid Active hydroCHLOROthiaz gil (MICROZIDE) 12.5 mg Oral Capsule Take 12.5 mg by mouth as needed. prn Active losartan (COZAAR) 100 mg Oral Tablet Take 100 mg by mouth nightly. Active LORazepam (ATIVAN) 1 mg Oral Tablet Take 1 mg by mouth as needed for Anxiety. Active amLODIPine (NORVASC) 5 mg Oral Tablet Take 10 mg by mouth daily. AM Active FLUoxetine (PROZAC) 20 mg Oral Capsule Take 20 mg by mouth daily. 3 capsules daily in the evening Active UNABLE TO FIND Anti-diarrheal 2mg prn loose stool immodium Active albuterol sulfate (PROAIR HFA INHL) Inhale into the lungs 3 times daily as needed. Active lidocaine (LIDODERM) 5 % Top Adhesive Patch, Medicated Place 1 Patch onto the skin as needed for Pain. Active insulin Regular Hum U-500 conc (HUMULIN R U-500, CONC, INSULIN) 500 unit/mL SubQ Solution Subcutaneous (Inject under the skin). 60 Units prior to bfast 80 Units prior to dinner Active tamsulosin (FLOMAX) 0.4 mg Oral Capsule Take 0.4 mg by mouth nightly. Active DULoxetine (CYMBALTA) 20 mg Oral Capsule, Delayed Release(E.C.) Take 30 mg by mouth 2 times daily. 30mg twice daily Active Blood-Glucose Sensor (DEXCOM G6 SENSOR) Misc Device by [employer].(Non-Drug; Combo Route) route. Active ezetimibe (ZETIA) 10 mg Oral Tablet Take by mouth nightly. Active magnesium hydroxide (MILK OF MAGNESIA) 400 mg/5 mL Oral Suspension Take 30 mL by mouth daily as needed for Constipation. 02/05/20 Active ferrous sulfate 325 mg (65 mg iron) Oral Tablet Take 1 Tablet by mouth 2 times daily (with meals). 60 Tablet 02/05/20 Active rivaroxaban (XARELTO) 10 mg Oral Tablet Take 1 Tablet by mouth daily (with breakfast). 30 Tablet 2 02/06/20 Active Active Problems Problem Noted Date Diagnosed Date Acute postoperative respiratory insufficiency Primary osteoarthritis of left knee 01/29/2022 Overview (01/29/2022): Added automatically from request for surgery [id number] Lower urinary tract symptoms due to benign prostatic hyperplasia 10/26/2021 Tear of left rotator cuff 09/28/2021 Overview (09/28/2021): Added automatically from request for surgery [id number] Chronic obstructive lung disease 06/30/2017 Chronic depression 06/30/2017 Diabetic peripheral neuropathy 06/30/2017 Hyperlipidemia 06/30/2017 Hypertensive disorder 06/30/2017 Peripheral angiopathy due to type 2 diabetes talia litus 03/10/2016 Resolved Problems Problem Noted Date Diagnosed Date Resolved Date Localized osteoarthritis of knee 02/02/2022 02/02/2022 Generalized rash 07/03/2021 07/27/2021 Immunizations Immunization Administration Dates Next Due Mariela SARS-CoV-2 Vaccine 09/20/2020 Surgical History Surgery Date Site/Laterality Comments KNEE SURGERY Right TKR OTHER SURGICAL HISTORY eyebrown lift BACK SURGERY cervical fusion CATARACT REMOVAL Bilateral SHOULDER ARTHROSCOPY 12/01/2020 Left LEFT SHOULDER ARTHROSCOPY, DECOMPRESSION, ROTATOR CUFF REPAIR; Surgeon: Partha Kuo MD; Location: [facility]; Service: Orthopedics Medical devices from this surgery are in the Medical Devices section. SHOULDER ARTHROSCOPY 10/27/2021 Shoulder/Left Left Shoulder Arthroscopy, Decompression, Rotator Cuff Repair, Acromioplasty, Acromioclavicular Joint Excision; Surgeon: Partha Kuo MD; Location: [facility]; Service: Orthopedics Medical devices from this surgery are in the Medical Devices section. TOTAL KNEE ARTHROPLASTY 02/02/2022 Knee/Left Left Total Knee Arthroplasty; Surgeon: Partha Kuo MD; Location: [facility]; Service: Orthopedics Medical devices from this surgery are in the Medical Devices section. 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 Date Comments COPD (chronic obstructive pu lmonary disease) ([facility]) Hypertension Hyperlipidemia MO (myocardial infarction) ([facility]) age of 26 from being given wrong medication at hospital (Heparin) Edema BLE Diverticulosis Neuropathy Arthritis Diabetes mellitus ([facility]) type 2-d excom sensor Urinary incontinence Oxygen dependent pt uses 2-3L O2 most of the time as of 10/23/21 Sleep apnea USES OXYGEN 2-3L /NC CONT Asthma Bronchitis, chronic (HCC) Irritable bowel syndrome Neuromuscular disorder ([facility]) Depression Anxiety disorder Chronic pain Family History 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 Relation Name Comments Arthritis Father COPD Father High Blood Pressure Father Cancer Mother Diabetes Mother High Blood Pressure Mother Anesth Problems Neg Hx Relation Name Status Comments Father Mother Social History Tobacco Use Types Packs/Day Years Used Date Smoking Tobacco: Former Cigarettes 1 20 0 11/27/1990 - 11/27/2010 Smokeless Tobacco: Never Alcohol Use Standard Drinks/Week Comments Never 0 (1 standard drink = 0.6 oz pur e alcohol) AUDIT-C Answer Date Recorded Q1: How often do you have a drink containing alc ohol? Never 12/25/2020 Average Number of Drinks Not on file 021 Frequency of Binge Drinking Not on file 01/2021 Overall Financial Resource Strain (CARDIA) Answe r Date Recorded How hard is it for you to pa y for the very basics like food, housing, medical care, and heating? Not hard at all 02/03/2022 Hunger Vital Sign Answer Date Recorded Within the past 12 months, y ou worried that your food would run out before you got the money to buy more. Never true 02/04/20 22 Within the past 12 months, t he food you bought just didn't last and you didn't have money to get more. Never true 02/03/2022 PRAPARE - Transportation Answer Date Re corded In the past 12 months, has l ack of transportation kept you from medical appointments or from getting medications? No 01/18 In the past 12 months, has l ack of transportation kept you from meetings, work, or from getting things needed for daily living? No 02/03/2022 Sex and Gender Information Value Date Recorded Sex Assigned at Not on file Legal Sex Male 8:15 AM EDT Gender Identity Not on file Sexual Orientation Not on file Obstetrics History Last Filed Vital Signs Vital Sign Reading Time Taken Comments Blood Pressure 136/55 02/04/2022 8:54 AM EDT Pulse 86 02/04/2022 12:28 PM EDT Temperature 36.6 C (97.8 F) 02/04/2022 8:54 AM EDT Respiratory Rate 20 02/04/2022 12:28 PM EDT Oxygen Saturation 94% 02/04/2022 12:28 PM EDT Inhaled Oxygen Concentration - - Weight 153.8 kg (339 lb) 02/02/2022 8:45 AM EDT Height 177.8 cm (5' 10 ) 02/02/2022 8:45 AM EDT Body Mass Index 48.64 02/02/2022 8:45 AM EDT Plan of Treatment Health Maintenance Due Date Last Done Comments Wellness Exam Medicare 1957 Lipids 1964 Microalbuminuria 1964 Diabetic Eye Exam 1972 Hepatitis C Screening 1972 Cologuard 1999 Colon Cancer Screening 1999 Colonoscopy 1999 FIT 1999 Sigmoidoscopy 1999 Virtual Colonography 1999 RSV or 60+ (1 - Ris k 60-74 years 1-dose series) 2014 DTaP/TDaP/Td (2 - Td or Tdap) 12/02/2018, 02/27/2007, 11/18/1996 AAA Screening 2019 Hemoglobin A1c 04/28/2022 10/26/2021 COVID-19 Vaccine (2023-07 5 season) 2024 04/19/2023, 04/21/2022, 01/26/2022, Additional history exists Influenza Vaccine (Season Ended) 2025 04/19/2023, 04/07/2023, 05/10/2022, Additional history exists Zoster Completed 03/29/2019, 09/2018, 02/11/2015 Pneumococcal Vaccine 50+ Completed 022, 08/18/2021, 08/02/2020, Additional history exists Hepatitis B Vaccine Aged Out No longe r eligible based on patient's age to complete this topic Meningococcal B Vaccine Aged Out No l onger eligible based on patient's age to complete this topic Medical Devices Implanted Type Area Data Support Analyst Device Identifier Shelf Expiration Date Model / Serial / Lot Knee Right: Knee Lens Bilateral: Eye Bone Bank Bone For Fusion Neck Oh[place]le Sut Y-Knt Self-Pnch Ndl - [id number] Implanted:Qty : 1 on 12/01/2020 by Partha Kuo MD at [facility] Left: Shoulder CONMED:LINVATEC 07/22/2025 [id number] / / [id number] Oh[place]opyle Sut Y-Knt Self-Pnch Ndl - [id number] Implanted:Qty : 1 on 10/27/2021 by Partha Kuo MD at [facility] Left: Shoulder CONMED:LINVATEC 06/01/2026 [id number] / / [id number] Liner Tib Sz Gh/6-9 10mm Persn Lt Kn Art Ps Fx Bear Melina-E - [id number] Implanted:Qty : 1 on 02/02/2022 by Partha Kuo MD at [facility] Left: Knee VILMA:VILMA [id number] 02/02/2026 [id number] / / [id number] Cement Refobacin 1x40 Gm Hvisc Bn Gent Lf - [id number] Implanted:Qty : 1 on 02/02/2022 by Partha Kuo MD at [facility] Left: Knee VILMA:VILMA 12/18/2023 [id number] / / [id number] Patlr 35mm Blayne Persn Pe Melina-E Ps Kn - [id number] Implanted:Qty : 1 on 02/02/2022 by Partha Kuo MD at [facility] Left: Knee VILMA:VILMA [id number] 11/17/2028 [id number] / / [id number] Comp Fem Sz8 Std Persn Lt Kn Ps Blayne Cocr Por - [id number] Implanted:Qty : 1 on 02/02/2022 by Partha Kuo MD at [facility] Left: Knee VILMA:VILMA 07/02/2031 [id number] / / [id number] Baseplate Tib Sz-G Stm Lt Kn Blayne Persn Sugar Tiv Norman 5d - [id number] Implanted:Qty : 1 on 02/02/2022 by Partha Kuo MD at [facility] Left: Knee VILMA:VILMA [id number] 08/17/2031 [id number] / / [id number] Insurance MEDICARE [place] PART A [place] B PPO MEDICARE [place] B [place]PO Advance Directives For more information, please contact: [phone] Documents on File Type Date Recorded Patient Manager Of Financial Expl anation ADVANCE DIRECTIVE 10/27/2021 9:38 AM ADVANCE DIRECTIVE 12/01/2020 8:44 AM * Full Code (Latest Code Status on File) Date Activated Date Inactivated Comments 02/02/2022 12:31 PM 02/04/2022 7:00 PM Care Teams Plaque Maker Relationship Specialty Start Date End Date Shelby, Catarino W, MD [address] [place] [address] PCP - General Family Medicine 10/26/21
--- OUTSIDE RECORDS SUMMARY | 2024-11-27 19:30 | XMS_ITS | Data Portability ---
Author Organization [facility], [facility]ST[facility] CLOSED Address [address] [place] [address] Care Team Providers Care Crop Adjuster Name Role Phone JERRY ROSENTHAL Marine Welder MIQUEL STOLL Underwear Trimmer MADELINE ALVAREZ II Primary Care Provider [phone] Assessment Encounter Date Assessment Date Assessment LastModified by Organization Details LastModified Time 03/08/2024 03/08/2024 f/up yearly FSE [email or web address] Not available 03/07/2024 07:31:30 Plan of Treatment Reminders Order Date Submit Date Provider Last Modified By Organization Details Last Modified Time Details Appointments RECHECK 2024 01:30P M JERRY ROSENTHAL MACHINE TOOL TECHNICIAN INSTRUCTOR Not available Not available Not available DERMATOL OGY VISIT 2024 02:15P M ELIZABETH CERNA DO Not available Not available Not available LEVEL 2 2024 11:00A Iwona STOLL MD Not available Not available Not available Lab microalb umin/cre atinine, mass ratio, urine 2024 025 [facility], [address] [place] [address], [address], 08/23/2024 12:12:55 lipid panel, serum 2024 025 [facility], [address] [place] [address], [address], 08/23/2024 12:04:30 glucose, fingerst ick, blood 2024 025 8 [facility], [address] [place] [address], [address], 08/23/2024 10:51:17 hemoglob in A1C, fingerst ick 2024 025 [email or web address] 8 [facility], [address] [place] [address], [address], 08/23/2024 10:51:17 CMP, serum or plasma 2024 025 [facility], [address] [place] [address], [address], 08/23/2024 12:04:28 TSH, serum or plasma 2024 025 [facility], [address] [place] [address], [address], 08/23/2024 12:09:29 microalb umin/cre atinine, mass ratio, urine 2023 024 [facility], [address] [place] [address], [address], 11/30/2023 18:04:30 glucose, fingerst ick, blood 2023 024 [email or web address] 8 [facility], [address] [place] [address], [address], 11/30/2023 15:43:26 hemoglob in A1C, fingerst ick 2023 024 [email or web address] 8 [facility], [address] [place] [address], [address], 11/30/2023 15:43:27 Referral None recorded . Procedures None recorded . Surgeries None recorded . Imaging None recorded . Medication Orders Humulin R U-500 (Conc) Insulin Kwikpen 500 unit/mL (3 mL) subcutan eous 2024 025 [facility], [address] [place] [address] [place], [id number], 08/23/2024 10:53:12 Ozempic 2 mg/dose (8 mg/3 mL) subcutan eous pen injector 2024 025 [email or web address] 8 [facility], [address] [place] [address] Maira [place], [phone], 08/23/2024 12:15:52 Humulin R U-500 (Conc) Insulin Kwikpen 500 unit/mL (3 mL) subcutan eous 2023 024 [facility], [address] [place] [address] Maira [place], [id number], 11/30/2023 15:46:09 Ozempic 2 mg/dose (8 mg/3 mL) subcutan eous pen injector 2023 024 [facility], [address] [place] [address] Maira [place], [id number], 11/30/2023 15:46:06 Patient TargetsNo targets recorded. Patient Instructions Encounter Date Encounter Id Patient Instructions Last Modified By Organization Details Last Modified Time 11/30/2023 [id number] [email or web address] Not available 04/2024 11:03:42 03/08/2024 [id number] If any lesions change, or if any other new or symptomatic lesions occur, patient understands to return to the clinic for further evaluation Discussed sun precautions; SPF 30+ [email or web address] Not available 03/07/2024 07:32:15 06/18/2024 [id number] 1. Miquel repor ts that he has [...] reviewed with pt. 6 Follow up prn. [email or web address] Not available 06/18/2024 17:36:41 08/23/2024 [id number] [email or web address] Not available 13:19:32 Reason for Referral None Reported. Results Created Date Observation Date Name Description Value Unit Range Abnormal Flag Note LastModifiedBy Organization Detail LastModifiedTime 11/30/19 24 11/30/2023 MICRO ALBUM IN/CR EAT RATIO microalbumin , random 192 mg/L 0-19 high Not Available [facility] [address] [place] [address], [address], 11/30/2023 18:04:30 11/30/19 24 11/30/2023 MICRO ALBUM IN/CR EAT RATIO creatinine,u r,random 195 mg/dL normal NO RUBEN L RANGE ESTAB LISHE D FOR RANDO M URINE . Not Available [facility] [place], [address], 11/30/2023 18:04:30 11/30/19 24 11/30/2023 MICRO ALBUM IN/CR EAT RATIO MA/creatinin e ratio 98 mcg/m g_cre at 0-29 high Not Available [facility] [address] [place] [address], [address], 11/30/2023 18:04:30 11/30/19 24 11/30/2023 hemog lobin A1C, arnaldo rstic k hemoglobin A1C % 6.9 % 4.0 - 5.6 Not Available [facility] [place] [address] [place] [address], [address], 11/29/2023 11:03:45 11/30/19 24 11/30/2023 gluco se, arnaldo rstic k, blood glucose, fingerstick 131 mg/dL 70 - 100 Not Available [facility] [address] [place], [address], 11/29/2023 11:03:45 08/24/19 25 08/23/2024 COMP. METAB OLIC PANEL glucose 179 mg/dL 74-100 high Not Available [facility] [address] [place] [address], [address], 08/23/2024 12:04:28 08/24/19 25 08/23/2024 COMP. METAB OLIC PANEL blood urea nitrogen 26 mg/dL 6-20 high Not Available [facility] [address] [place] [address], [address], 08/23/2024 12:04:28 08/24/19 25 08/23/2024 COMP. METAB OLIC PANEL creatinine 1.04 mg/dL 0.70-1 .28 normal Not Available [facility] [address] [place] [address], [address], 08/23/2024 12:04:28 08/24/19 25 08/23/2024 COMP. METAB OLIC PANEL BUN/creatini ne ratio 25 (calc ) 10-20 high Not Available [facility] [address] [place] [address], [address], 08/23/2024 12:04:28 08/24/19 25 08/23/2024 COMP. METAB OLIC PANEL sodium 142 mmol/ L 136-14 5 normal Not Available [facility] [address] [place] [address], [address], 08/23/2024 12:04:28 08/24/19 25 08/23/2024 COMP. METAB OLIC PANEL potassium 4.4 mmol/ L 3.4-5. 0 normal Not Available [facility] [address] [place] [address], [address], 08/23/2024 12:04:28 08/24/19 25 08/23/2024 COMP. METAB OLIC PANEL chloride 103 mmol/ L 98-107 normal Not Available [facility] [address] [place] [address], [address], 08/23/2024 12:04:28 08/24/19 25 08/23/2024 COMP. METAB OLIC PANEL carbon dioxide 25 mmol/ L 22-31 normal Not Available [facility] [address] [place] [address], [address], 08/23/2024 12:04:28 08/24/19 25 08/23/2024 COMP. METAB OLIC PANEL anion gap 14 (calc ) 7-25 normal Not Available [facility] [address] [place] [address], [address], 08/23/2024 12:04:28 08/24/19 25 08/23/2024 COMP. METAB OLIC PANEL calcium 9.3 mg/dL 8.6-10 .2 normal Not Available [facility] [address] [place] [address], [address], 08/23/2024 12:04:28 08/24/19 25 08/23/2024 COMP. METAB OLIC PANEL total protein 7.1 g/dL 6.4-8. 3 normal Not Available [facility] [address] [place] [address], [address], 08/23/2024 12:04:28 08/24/19 25 08/23/2024 COMP. METAB OLIC PANEL albumin 4.2 g/dL 3.5-5. 2 normal Not Available [facility] [address] [place] [address], [address], 08/23/2024 12:04:28 08/24/19 25 08/23/2024 COMP. METAB OLIC PANEL globulin 2.9 1.5-4. 5 normal Not Available [facility] [address] [place] [address], [address], 08/23/2024 12:04:28 08/24/19 25 08/23/2024 COMP. METAB OLIC PANEL albumin/glob ulin ratio 1.4 (calc ) 1.1-2. 5 normal Not Available [facility] [address] [place] [address], [address], 08/23/2024 12:04:28 08/24/19 25 08/23/2024 COMP. METAB OLIC PANEL bilirubin, total 0.6 mg/dL 0.1-1. 2 normal Not Available [facility] [address] [place] [address], [address], 08/23/2024 12:04:28 08/24/19 25 08/23/2024 COMP. METAB OLIC PANEL alkaline phosphatase 98 U/L 40-129 normal Not Available [facility] [address] [place] [address], [address], 08/23/2024 12:04:28 08/24/19 25 08/23/2024 COMP. METAB OLIC PANEL AST 14 U/L 0-40 normal Not Available [facility] [address] [place] [address], [address], 08/23/2024 12:04:28 08/24/19 25 08/23/2024 COMP. METAB OLIC PANEL ALT 15 U/L 0-41 normal Not Available [facility] [address] [place] [address], [address], 08/23/2024 12:04:28 03/06/08/23/2024 COMP. METAB OLIC PANEL [...] s/KDO QI/gf r_cal culat orPed Not Available [facility] [address] [place] [address], [address], 08/23/2024 12:04:28 08/24/19 25 08/23/2024 LIPID PROFI LE HDL cholesterol 48 mg/dL 40-242 normal Not Available [facility] [address] [place] [address], [address], 08/23/2024 12:04:30 08/24/19 25 08/23/2024 LIPID PROFI LE triglyceride s 74 mg/dL 0-149 normal TRIGL YCERI DE RANGE S RUBEN L: < 150 BORDE RLINE HIGH: 150 - 199 HIGH: 200 - 499 VERY HIGH: > OR = 500 Not Available [facility] [address] [place] [address], [address], 08/23/2024 12:04:30 08/24/19 25 08/23/2024 LIPID PROFI LE cholesterol 112 mg/dL 0-199 normal GUIDO STERO L (TOTA L) RANGE S MARISEL ABLE: < 200 BORDE RLINE : 200 - 239 HIGHE R RISK: > 239 Not Available [facility] [address] [place], [address], 08/23/2024 12:04:30 08/24/19 25 08/23/2024 LIPID PROFI LE LDL cholesterol 49 mg/dL _(ara c) 0-99 normal LDL GUIDO STERO L RANGE S OPTIM AL: < 100 NEAR/ ABOVE OPTIM AL: 100 - 129 BORDE RLINE HIGH: 130 - 159 HIGH: 160 - 189 VERY HIGH: > OR = 190 Not Available [facility] [address] [place] [address], [address], 08/23/2024 12:04:30 08/24/19 25 08/23/2024 TSH TSH 1.130 u[IU] /mL 0.270- 4.200 normal Not Available [facility] [address] [place] [address], [address], 08/23/2024 12:09:29 08/24/19 25 08/23/2024 MICRO ALBUM IN/CR EAT RATIO microalbumin , random 98 mg/L 0-19 high Not Available [facility] [address] [place] [address], [address], 08/23/2024 12:12:55 08/24/19 25 08/23/2024 MICRO ALBUM IN/CR EAT RATIO creatinine,u r,random 167 mg/dL normal NO RUBEN L RANGE ESTAB LISHE D FOR RANDO M URINE . Not Available [facility] [address] [place] [address], [address], 08/23/2024 12:12:55 08/24/19 25 08/23/2024 MICRO ALBUM IN/CR EAT RATIO MA/creatinin e ratio 59 mcg/m g_cre at 0-29 high Not Available [facility] [address] [place] [address], [address], 08/23/2024 12:12:55 08/24/19 25 08/23/2024 hemog lobin A1C, finge rstic k hemoglobin A1C % 6.8 % 4.0 - 5.6 Not Available [facility] [address] [place] [address], [address], 08/10/2024 13:19:34 08/24/19 25 08/23/2024 gluco se, finge rstic k, blood glucose, fingerstick 199 mg/dL 70 - 100 Not Available [facility] [address] [place], [address], 08/10/2024 13:19:34 Result Notes None recorded. Problems Name Problem SNOMED Code Status Onset Date Resolution Date Notes Provider Name and Address Organization Details Recorded Time Idiopath ic osteoart hritis 242633470 Active 2015 From [employer];Pro vider: Celia Monge; atus: Active Not Available [facility] 7 03:40:39 Achilles tendinit is 40896666 Completed 201501/03/2017 From [employer];Pro vider: Magdalena Fuentes;Sta tus: Active MIQUEL HERRMANN MD [address] [place] [address], [address] , [facility] 7 13:46:53 Senile hyperker atosis 218003391 Active 2015 From [employer];Pro vider: Marilin Gonsales; atus: Active Not Available [facility] 7 06:00:03 Neoplast ic disease 17964198 Completed 201501/03/2017 From [employer];Pro vider: Marilin Gonsales;St atus: Active MIQUEL HERRMANN MD [address] [place] [address], [address] , [facility] 7 13:46:51 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 834564665 Active 2015 From [employer];Pro vider: Magdalena Fuentes;Sta tus: Active Not Available [facility] 7 06:21:34 Pain in left foot 70405574238 9107 Completed 201501/03/2017 From [employer];Pro vider: Magdalena Fuentes;Sta tus: Active MIQUEL HERRMANN MD [address] [place] [address], [address] , [facility] 7 13:46:55 Pain in right foot 64641122316 9107 Active 2015 From [employer];Pro vider: Magdalena Fuentes;Sta tus: Active Not Available [facility] 7 06:45:00 Tracheob ronchiti s [id number] Completed 201501/03/2017 From [employer];Pro vider: Celia Monge;St atus: Active MIQUEL HERRMANN MD [address] [place] [address], [address] , [facility] 7 13:46:47 Congenit al talipes calcaneo valgus 092539944 Active 2015 From [employer];Pro vider: Magdalena Fuentes;Sta tus: Active Not Available [facility] 7 07:05:37 Disorder of capillar ies 96706307 Active 2015 From [employer];Pro vider: Marilin Gonsales;St atus: Active Not Available [facility] 7 07:51:38 Hyperten sive disorder 85329403 Active 2017 MIQUEL HERRMANN MD [address] [place] [address], [address] , [facility] 2 07:59:22 Hyperlip idemia 66354167 Active 2017 MIQUEL HERRMANN MD [address] [place] [address], [address] , [facility] 2 07:59:22 Chronic depressi on 418388909 Active 2017 MIQUEL HERRMANN MD [address] [place] [address], [address] , [facility] 2 07:59:22 Chronic obstruct an pulmonar y disease 57356645 Active 2017 MIQUEL HERRMANN MD [address] [place] [address], [address] , [facility] 2 07:59:22 Diabetic peripher al neuropat hy 217122779 Active 2017 MIQUEL HERRMANN MD [address] [place] [address], [address] , [facility] 2 07:59:22 Venous insuffic iency of leg 945280046 Active 2020 MIQUEL HERRMANN MD [address] [place] [address], [address] , [facility] 1 16:20:44 Multiple complica tions due to type 2 diabetes mellitus Active 2021 JERRY ROSENTHAL, MACHINE TOOL TECHNICIAN INSTRUCTOR [address] [place] [address], [address] , [facility] 2 12:26:29 Lower urinary tract symptoms due to benign prostati c hypertro phy 01012609373 101 Active 2021 MIQUEL HERRMANN MD [address] [place] [address], [address] , [facility] 2 08:02:53 Chronic low back pain 911113457 Active 2021 MIQUEL HERRMANN MD [address] [place] [address], [address] , [facility] 2 08:02:53 Body mass index 40+ - severely obese 618703879 Active 2021 MIQUEL HERRMANN MD [address] [place] [address], [address] , [facility] 2 08:02:[address] segment elevatio n myocardi al infarcti on 58031381320 9104 Active 2021 MIQUEL HERRMANN MD [address] [place] [address], [address] , [facility] 2 07:52:05 Morbid obesity 493672827 Active 2022 MIQUEL HERRMANN MD [address] [place] [address], [address] , [facility] 3 15:15:21 Recurren t major depressi on 37492538 Active 2022 MIQUEL HERRMANN MD [address] [place] [address], [address] , [facility] 3 15:23:59 Problem Notes None recorded. Procedures Surgical History Date Name Laterality Status Provider Name and Address Organization Details Recorded Time 025 Diabetic Foot Exam completed JERRY ROSENTHAL, MACHINE TOOL TECHNICIAN INSTRUCTOR [address] [place], [address], [facility] 08/23/2024 12:17:37 024 Laryngoscopy Flex completed Fred Ogpao [facility] 06/18/2024 15:35:17 024 Destruction BN Lesions completed ELIZABETH CERNA DO [address] [place], [address], [facility] 03/08/2024 17:02:10 022 TCM completed Shimon [facility] 06/03/2022 07:19:18 022 OCT/Retina completed MIQUEL STOLL MD [address] [place], [address], [facility] 06/07/2022 16:04:02 022 catheterization of left heart completed Shimon [facility] 06/03/2022 07:29:27 022 Destruction BN Lesions completed Damaris Johnson [facility] 08/05/2021 14:43:50 022 Cystoscopy - male completed KARUNA ALDRIDGE MD [facility] [place], [address], [facility] 07/13/2021 13:19:21 021 Post Void Residual; Ultrasound completed Katina Camejo [facility] 05/19/2021 15:49:13 021 OCT/Retina completed MIQUEL STOLL MD [facility] [place], [address], [facility] 03/06/2021 12:14:35 021 repair of shoulder completed Monica Osorio [facility] 02/09/2021 14:40:09 021 Bubbles Echocardiogram completed ISAAK CASTRO MD [address] [place], [address], [facility] 07/21/2020 15:43:23 021 Diffusion Capacity completed SILVESTRE MCLAIN PA-C [address] [place], [address], [facility] 07/10/2020 15:30:41 021 Lung Volumes, Plethysmography completed SILVESTRE MCLAIN PA-C [address] [place], [address], [facility] 07/10/2020 15:31:01 021 Spirometry completed SILVESTRE MCLAIN PA-C [address] [place], [address], [facility] 07/10/2020 15:31:15 020 Biopsy Skin Lesion; Punch completed [facility] 08/20/2019 12:12:34 020 Destruction BN Lesions completed [facility] 08/20/2019 12:12:09 019 Digital Rectal Screening Exam completed MIQUEL HERRMANN MD [address] [place], [address], [facility] 07/13/2018 16:22:10 018 Digital Rectal Screening Exam completed MIQUEL HERRMANN MD [address] [place], [address], [facility] 07/11/2017 16:34:07 017 MNT Initial Visit completed [address] [place], [address], [facility] 01/20/2017 14:21:14 017 Audiogram completed JACLYN WHARTON [address] [place], [address], [facility] 06/30/2016 14:57:39 011 Cervical Spine Surgery completed Brea Leos [facility] 06/08/2016 14:35:47 Cataract Surgery completed Melissa Leos [facility] 06/08/2016 14:35:11 Knee Surgery completed Brea Leos [facility] 06/08/2016 14:37:21 Imaging Results None recorded. Procedure Notes None recorded. Medical Equipment None Reported. Allergies Allergen ID Allergen Name Allergen Category Reaction Reaction Severity Criticality Documentation Date Start Date Code Code System Note Provider Name and Address Organization Details Recorded Time 981020 Non-stero idal anti-infl ammatory agent (product) medicatio n Not available Not available Not available 09/16/2016 70094 005 [facility] Verito Jack [facility] 7 10:06:11 714478 Substance with sulfonami de structure and antibacte rial mechanism of action (substanc e) medicatio n Not available Not available Not available 09/16/2016 75939 8003 SNOMED Verito Jack [facility] 7 10:06:23 420393 aspirin medicatio n Not available Not available Not available 09/16/2016 1191 RxNorm Jocelyn Kay [facility] 2 14:56:06 897978 pravastat in medicatio n rash Not available Not available 08/18/2022 39502 RxNorm JERRY ARIADNA, MACHINE TOOL TECHNICIAN INSTRUCTOR [address] [place], [address], [facility] 3 16:14:52 144218 lisinopri l medicatio n cough Not available Not available 12/08/2023 75884 RxNorm JERRY ARIADNA, MACHINE TOOL TECHNICIAN INSTRUCTOR [address] [place], [address], [facility] 4 10:43:26 [...] Available Not Available Nasonex 50 mcg/actua tion [place] 2 sprays every day by intranas al [...] CAPSULES BY MOUTH ONCE A DAY call [phone] to schedule appt active Not Available Not [...] Updated DateTime 08/23/2024 175.26 cm 49.9 kg/m2 846479.2 2 g 114 mm[Hg] 80 mm[Hg] Tosin Sergey [facility] 5 10:32:47 Date Recorded Body height Body mass index (BMI) Body weight Heart rate Systolic blood pressure Diastolic blood pressure Provider Name and Address Organization Details Last Updated DateTime 4 175.26 cm 48.4 kg/m2 113854. 3 g 68 /min 126 mm[Hg] 72 mm[Hg] Enid Alcantarus [facility] 4 15:11:39 Date Recorded Body height Provider Name an d Address Organization Details Last Updated DateTime 03/08/2024 175.26 cm [place] Jordyn Bravo [facility] 03/08/2024 11:39:02 Date Recorded Body height Body mass index (BMI) Body weight Body temperature Heart rate Systolic blood pressure Diastolic blood pressure Provider Name and Address Organization Details Last Updated DateTime 4 175.26 cm 48.9 kg/m2 738868. 36 g 98.2 [degF] 90 /min 112 mm[Hg] 75 mm[Hg] Maddy Calderon [facility] 4 14:43:32 Social History Question Answer Notes LastModified by Organizat ion Details LastModified Time Tobacco Smoking Status Former Smoker QUIT 2005 Brea Keemle [facility] 06/08/2016 14:34:38 Do You Have An Advance Directive? No [email or web address] Information not available 06/07/2019 What Is Your Level Of Caffeine Consumption? Moderate Information not available 07/08/2017 How Much Tobacco Do You Chew? None Information not available 07/13/2018 What Type Of Diet Are You Following? REGULAR [email or web address] Information not available 06/07/2019 Which Illicit Or Recreational Drugs Have You Used? No Information not available 06/07/2019 Education 2 Year College Information not available 07/08/2017 When Did You Quit Smoking? 16+yearssinc [email or web address] te Information not available 10/28/2022 Live Alone Or With Others? With Others Information not available 07/08/2017 Marital Status navya Gonsales n not available 06/08/2016 What Was The Date Of Your Most Recent Tobacco Screening? 11/08/2022 [email or web address] Information not available 11/08/2022 What Is Your Relationship Status? [email or web address] Information not available 05/19/2021 Seat Belts Used Routinely Yes Information not available 07/08/2017 Are You Passively Exposed To Smoke? No Information not available 07/08/2017 How Much Tobacco Do You Smoke? 1.5 PPD Information not available 07/11/2017 Do You Use Sunscreen Routinely? No Information not available 07/08/2017 How Many Years Have You Smoked Tobacco? 15 Information not available 07/11/2017 Sex: Unknown Functional Status Question Answer Note LastModified by Organizat ion Details LastModified Time What is your level of alcohol consumption? None [email or web address] Information not available 06/08/2016 Do you or have you ever used smokeless tobacco? Never used smokeless tobacco Information not available 01/19/2019 Are you able to care for yourself? Yes Information not available 07/08/2017 What is your occupation? [employer] Information not available 07/11/2017 Do you or have you ever used e-cigarettes or vape? Never used electronic cigarettes Information not available 01/19/2019 What is your exercise level? None Information [...] available 2016 15:14:09 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 Condition Response Coronary Artery Disease Y Other Y Depression Y COPD Y Pneumonia Y Arthritis Y Snoring problems Y Headaches Y Heart Problems Y Ear or Hearing Problems Y Migraines Y Urinary Problems Y Bleeding Disorder Y Asthma Y Sleep Disorder Y Glasses/Contacts Y High Cholesterol Y Chronic Obstructive Pulmonary Disease Y Heart Attack ([place]) Y Diabetes Y Sleep Apnea Y Heart Disease Y Bronchitis Y Hypertension Y Osteoporosis Y Immunizations Vaccine Type Date Status Note Provider Nam e and Address Organization Details Recorded Time Influenza, high-dose, trivalent, PF 9 completed Not Available [facility] 02:48:55 Pneumococcal conjugate PCV 13 0 completed Not Available [facility] 07/07/2019 02:48:26 Influenza, high-dose, quadrivalent, PF 0 completed Monica Osorio [facility] 06/16/2020 15:59:45 Influenza, high-dose, quadrivalent, PF 2 completed Monica Osorio [facility] 07/28/2021 12:03:00 pneumococcal polysaccharide PPV23 2 completed MIQUEL HERRMANN MD [address] [place] [address], [id number], [facility] 08/18/2021 11:04:59 Influenza, split virus, quadrivalent, preservative 7 completed MIQUEL HERRMANN MD [address] [place] [address], [phone], [facility] 11/08/2022 15:20:57 pneumococcal polysaccharide PPV23 3 [facility] 08:08:52 Tdap 9 completed MIQUEL HERRMANN MD [address] [place] [address], [phone], [facility] 11/08/2022 15:20:58 influenza nasal, unspecified formulation 2 completed MIQUEL HERRMANN MD [address] [place] [address], [id number], [facility] 11/08/2022 15:20:58 zoster recombinant 9 completed MIQUEL HERRMANN MD [address] [place] [address], [address] [place] [address], [facility] 11/08/2022 15:20:57 zoster recombinant 9 completed MIQUEL HERRMANN MD [address] [place] [address], [address] [place] [address], [facility] 11/08/2022 15:20:57 Influenza, high-dose, quadrivalent, PF 0 completed MIQUEL HERRMANN MD [address] [place] [address], [id number], [facility] 11/08/2022 15:20:57 Influenza, high-dose, quadrivalent, PF 1 completed MIQUEL HERRMANN MD [address] [place] [address], [phone], [facility] 11/08/2022 15:20:57 COVID-19, mRNA, LNP-S, PF, 100 mcg/0.5mL dose or 50 mcg/0.25mL dose 1 completed MIQUEL HERRMANN MD [address] [place] [address], [id number], [facility] 11/08/2022 15:20:57 COVID-19, mRNA, LNP-S, PF, 100 mcg/0.5mL dose or 50 mcg/0.25mL dose 2 completed MIQUEL HERRMANN MD [address] [place] [address], [id number], [facility] 11/08/2022 15:20:57 COVID-19, mRNA, LNP-S, PF, 100 mcg/0.5mL dose or 50 mcg/0.25mL dose 1 completed MIQUEL HERRMANN MD [address] [place] [address], [phone], [facility] 11/08/2022 15:20:58 COVID-19, mRNA, LNP-S, bivalent, PF, 50 mcg/0.5 mL or 25mcg/0.25 mL dose 2 completed MIQUEL HERRMANN MD [address] [place] [address], [address] [place] [address], [facility] 11/08/2022 15:20:58 Hep A, adult 0 completed MIQUEL HERRMANN MD [address] [place] [address], [address] [place] [address], [facility] 11/08/2022 15:20:58 Hep A, adult 9 completed MIQUEL HERRMANN MD [address] [place] [address], [address] [place] [address], [facility] 11/08/2022 15:20:58 Influenza, split virus, quadrivalent, PF 6 completed MIQUEL HERRMANN MD [address] [place] [address], [address] [place] [address], [facility] 11/08/2022 15:20:58 Past Encounters Encounter ID Performer Location Encounter Start Date Encounter Closed Date Diagnosis/Indication Diagnosis SNOMED-CT Code Diagnosis ICD10 Code Diagnosis Note [id number] SCARLETT JAQUEZ, AUD ENT SB [facility] [place] [address] 1 06/30/2016 14:02:35 06/30/2016 15:00:50 Sensorineural hearing loss of bilateral ears 964685222 H90.3 Bilateral tinnitus 83674 89079 102 H93.13 [id number] MIQUEL HERRMANN MD [facility] [address] [place] [address] 09/16/2016 09:51:54 09/16/2016 13:47:26 Acute exacerbation of asthma 712129606 J45.901 Patient has failed outpatient therapy as he is on Zithromax, prednisone and frequent neb treatments with continued diffuse wheezing. I have called [facility] emergency room and patient will be seen there right away for further evaluation and probable admission to hospital. [id number] MIQUEL HERRMANN MD [facility] [address] [place] [address] 09/22/2016 07:41:54 09/22/2016 08:33:11 Acute bronchitis 16013568 J20.9 Finish course of Zithromax Chronic ob structive pulmonary disease 96362142 J44.9 Finish course of prednisone . Continue duo nebs as directed. Patient is slowly improving. He will call and return if he doesn't continue to improve or if he should worsen. [id number] JERRY ROSENTHAL APRN [facility] [address] [place] [address] 11/04/2016 09:35:01 11/04/2016 11:11:18 Uncontrolled type 2 diabetes mellitus 828670673 E11.65 Diabetes mellitus Type 2, uncontroll ed. A 1C at the office today is 10.3 %. Last A1c 8.7 % on 05/03/16. G oal A1C by ADA criteria is less than 7%. Random blood glucose 404. Recommenda tions:-Dis cussed natural progressio n of diabetes and impact of diet and exercise. -Continue levemir 80units twice daily (pen) -Increase Novolog 30 units before breakfast, lunch, and dinner. (vial) At next refill, will switch to insulin pens. - Patient is instructed to restrict his carbohydra jacquelyn (less than 60 g per meal and less than 15 g per snack). Instructed on carbohydra te counting and importance of carbohydra te consistenc y. Handout given and reviewed. - Monitor blood glucose at least 3 times per day before meals and before bedtime and any time he feels low. Blood glucose goals reviewed (i.e. fasting 80-130, post-prand ial <180, and hypoglycem ia <70). Patient advised to call our office if recurrent hypoglycem ia. - Untoward consequenc es of uncontroll ed diabetes discussed, including but not limited to peripheral diabetic neuropathy , diabetic nephropath y, diabetic retinopath y, heart attack, and stroke. - Dietitian referral: Yes - Encouraged to be active (30 minutes of moderate intensity exercise i.e. walking 5 times weekly). Weight loss will help with insulin sensitizat ion. - Hypoglycem ia symptoms explained and treatment for this reviewed. - Patient is up to date on foot exam. - Patient is up to date on eye exam. (Dr. Flowers) - Patient is needs urine testing for microalbum in. - Patient verbalized understand ing of treatment plan. All questions answered. -Last labs on 09/18/16BUN 31Creatini ne 1.0GFR 76TSH 0.883AST 35ALT 36 Hyperlipidemia 45483058 E78.5 Goal LDL is under 100 mg/dl. Last LDL: 111 on 05/03/16Tr iglyceride s: 301 Upon further questionin g, patient states that he has not been taking pravastati n.[facility] ed patient to restart pravastati n therapy.Co ntinue dietary changes as recommende d. Essential hypertension 01813179 I10 Goal B.P is less than 140/90 mmHg. Continue current anti-hyper tensive medication s as appropriat e per patient s PCP. [id number] JERRY ROSENTHAL APRN ENDOCRINO [facility]Y [address] [place] [address] 12/22/2016 14:58:29 12/23/2016 09:38:55 Uncontrolled type 2 diabetes mellitus 044256510 E11.65 Diabetes mellitus Type 2, uncontroll ed. L ast A1C was 10.3 % up from 8.7 % on 05/03/16. G oal A1C by ADA criteria is less than [...] given. - Patient is instructed to restrict his carbohydra jacquelyn (less than 60 g per meal and less than 15-20 g per snack). Reinforced importance of carbohydra te consistenc y. - Monitor blood glucose at least 3 times per day before meals and before bedtime and any time he feels low. Blood glucose goals reviewed (i.e. fasting 80-130, post-prand ial <180, and hypoglycem ia <70). Patient advised to call our office if recurrent hypoglycem ia. - Dietitian referral: Yes - Encouraged to be active (30 minutes of moderate intensity exercise i.e. walking 5 times weekly). Weight loss will help with insulin sensitizat ion. - Hypoglycem ia symptoms explained and treatment for this reviewed. - Patient is up to date on foot exam. - Patient is up to date on eye exam. (Dr. Flowers) - Patient is up to date on urine testing for microalbum in. - Patient verbalized understand ing of treatment plan. All questions answered. -Last labs on 09/18/16BUN 31Creatini ne 1.0GFR 76TSH 0.883AST 35ALT 36 Hyperlipidemia 37156400 E78.5 Goal LDL is under 100 mg/dl. Last LDL: 111 on 05/03/16Tr iglyceride s: 301 Discussed statin therapy with patient. His ASCVD risk is 27.8% and he should be on a high-inten sity statin. However, he does have a history of slightly elevated LFTs. Will restart low-dose statin for now.Contin ue dietary changes as recommende d. Essential hypertension 71059293 I10 Goal B.P is less than 140/90 mmHg. Continue current anti-hyper tensive medication s as appropriat e per patient s PCP. Morbid obesity 300144842 E66.01 -Dietary recommenda tions as above. -Exercise [...] procedure and to optimize diet and exercise. [id number] MIQUEL HERRMANN MD [facility] [address] [place] [address] 01/03/2017 13:15:13 01/03/2017 14:08:06 Hypertensive disorder 34458541 I10 Hyperlipidemia 41957958 E78.5 Chronic depression 08031 0009 F34.1 Chronic ob structive pulmonary disease 39364894 J44.9 Diabetic p eripheral neuropathy 817640222 E11.40 Patient has signed CSA and SILVINO is appropriat e. [id number] [address] [facility] [address] [address] 01/20/2017 13:25:42 01/20/2017 14:22:17 Diabetes mellitus 75291245 E11.65 [id number] JERRY ROSENTHAL APRN ENDOCR[facility] [address] [address] 02/07/2017 08:28:32 02/07/2017 15:58:46 Uncontrolled type 2 diabetes mellitus 908092592 E11.65 Diabetes mellitus Type 2, uncontroll ed. A1c in office today of 7.7%, down from 10.3 % (11/04/16). G oal A1C by ADA criteria is less than 7%. Random blood glucose 198. Recommenda tions:-Con tinue levemir 85 units twice daily -Continue Novolog 30 units before breakfast, lunch, and dinner. -Continue Farxiga 10mg daily. - Patient is instructed to restrict his carbohydra jacquelyn (less than 60 g per meal and less than 15-20 g per snack). Reinforced importance of carbohydra te consistenc y. - Monitor blood glucose at least 3 times per day before meals and before bedtime and any time he feels low. Blood glucose goals reviewed (i.e. fasting 80-130, post-prand ial <180, and hypoglycem ia <70). Patient advised to call our office if recurrent hypoglycem ia. - Dietitian referral: Yes - Encouraged to be active (30 minutes of moderate intensity exercise i.e. walking 5 times weekly). Weight loss will help with insulin sensitizat ion. - Hypoglycem ia symptoms explained and treatment for this reviewed. - Patient is up to date on foot exam. - Patient is up to date on eye exam. (Dr. Flowers) - Patient is up to date on urine testing for microalbum in. - Patient verbalized understand ing of treatment plan. All questions answered. -Last labs on 09/18/16BUN 31Creatini ne 1.0GFR 76TSH 0.883AST 35ALT 36 Hyperlipidemia 62439727 E78.5 Goal LDL is under 100 mg/dl. Last LDL: 111 on 05/03/16Tr iglyceride s: 301 Continue pravastati n as prescribed .Continue dietary changes as recommende d. Essential hypertension 15059277 I10 Goal B.P is less than 140/90 mmHg. Continue current anti-hyper tensive medication s as appropriat e per patient s PCP. Morbid obesity 713732414 E66.01 -4lb weight loss since last visit.- tary recommenda tions as above. -Exercise recommenda tions as above. [id number] JERRY ROSENTHAL APRN [facility] [address] [place] [address] 05/20/2017 13:22:23 05/20/2017 14:04:52 Uncontrolled type 2 diabetes mellitus 719264980 E11.65 Diabetes mellitus Type 2, uncontroll ed. A1c in office today of 7.7%, same as 02/07/17. G oal A1C by ADA criteria is less than 7%. Random blood glucose 218. Recommenda tions:-Con tinue levemir 85 units twice daily -Continue Novolog 30 units before breakfast, lunch, and dinner. -Continue Farxiga 10mg daily. - Patient is instructed to restrict his carbohydra jacquelyn (less than 60 g per meal and less than 15-20 g per snack). Reinforced importance of carbohydra te consistenc y and dietary discretion . - Monitor blood glucose at least 3 times per day before meals and before bedtime and any time he feels low. Blood glucose goals reviewed (i.e. fasting 80-130, post-prand ial <180, and hypoglycem ia <70). Patient advised to call our office if recurrent hypoglycem ia. - Dietitian referral: Yes - Encouraged to be active (30 minutes of moderate intensity exercise i.e. walking 5 times weekly). Weight loss will help with insulin sensitizat ion. - Hypoglycem ia symptoms explained and treatment for this reviewed. - Patient is up to date on foot exam. - Patient is up to date on eye exam. (Dr. Flowers) Patient to schedule. - Patient is up to date on urine testing for microalbum in. - Patient verbalized understand ing of treatment plan. All questions answered. -Last labs on 09/18/16BUN 31Creatini ne 1.0GFR 76TSH 0.883AST 35ALT 36 Hyperlipidemia 31545500 E78.5 Goal LDL is under 100 mg/dl. Last LDL: 111 on 05/03/16Tr iglyceride s: 301 Continue pravastati n as prescribed .Continue dietary changes as recommende d. Essential hypertension 57830918 I10 Goal B.P is less than 140/90 mmHg. Continue current anti-hyper tensive medication s as appropriat e per patient s PCP. Morbid obesity 180355868 E66.01 -Weight gain since last visit. Patient asked about addipex. I advised him that I do not recommend that given his history of hypertensi on, [place], and he is currently taking cymbalta.- Dietary recommenda tions as above. Stategies to avoid temptation s discussed. -Exercise recommenda tions as above. 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 [id number] CELIA MONGE PA-C [address] [place] [address] 05/20/2017 14:19:09 05/20/2017 16:09:56 Lesion of penis 114054582 N48.9 white hard tender lesion overlying penile skin on the right side of the distal penis. no ulceration or bleeding. i would like to refer to urology to evaluate this new penile lesion. 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 Body mass index 40+ - severely obese 810139752 Z68.42 Continue weight loss efforts. Screening for malignant neoplasm of colon 189399916 Z12.11 [id number] JERRY ROSENTHAL APRN ENDOCR[facility] [address] [place] [address] 09/02/2017 14:05:45 09/02/2017 15:17:19 Uncontrolled type 2 diabetes mellitus 766098661 E11.65 Diabetes mellitus Type 2, uncontroll ed. A 1c in office today of 8.2%, up from 7.7% 05/20/17. G oal A1C by ADA criteria is less than [...] the risk.- Patient is instructed to restrict his carbohydra jacquelyn (less than 60 g per meal and less than 15-20 g per snack). Reinforced importance of carbohydra te restrictio n. - Monitor blood glucose at least 3 times per day before meals and before bedtime and any time he feels low. Blood glucose goals reviewed (i.e. fasting 80-130, post-prand ial <180, and hypoglycem ia <70). Patient advised to call our office if recurrent hypoglycem ia. - Dietitian referral: Yes; Follow up with Augustine Louis RD as scheduled. - Encouraged to be active (30 minutes of moderate intensity exercise i.e. walking 5 times weekly). Weight loss will help with insulin sensitizat ion. - Hypoglycem ia symptoms explained and treatment for this reviewed. - Patient is up to date on foot exam. - Patient is needs eye exam. (Dr. Flowers) - Patient is up to date on urine testing for microalbum in. (ARB) - Patient verbalized understand ing of treatment plan. All questions answered. -Last labs on 07/11/17BUN 18Creatini ne 0.91GFR 89AST 24ALT 26MACR positive (40) 02/07/17 Hyperlipidemia 71274294 E78.5 Goal LDL is under 100 mg/dl. Last LDL: 102 on 07/11/17Tri glycerides : 202 Continue pravastati n as prescribed .Continue dietary changes as recommende d. Essential hypertension 84095801 I10 Goal B.P is less than 140/90 mmHg. Continue current anti-hyper tensive medication s as appropriat e per patient s PCP. Morbid obesity 972150925 E66.01 -Dietary recommenda tions as above. -Will start Victoza as above for blood glucose and cardiovasc ular protection . It may assist with weight loss efforts. -Exercise recommenda tions as above. Renal diso rder due to type 2 diabetes mellitus 745397406 E11.22 MACR positive (40) on 02/07/17.Co ntinue losartan therapy as ordered. [id number] CELIA MONGE PA-C [facility] [address] [address] 10/17/2017 12:51:54 10/17/2017 13:26:05 Chronic depression 224602337 F34.1 feels cymbalta is not effective any longer. patient will go ahead and stop Cymbalta and start fluoxetine as directed instead. Recheck in 1 month. This may need to be increased. [id number] ISAAK FLOWERS MD OPHTHALMO LOGY [address] [place] [place] [address] 10/25/2017 14:33:49 10/26/2017 08:48:25 Type 1 diabetes mellitus 53463868 E10.9 Bilateral pseudophakia 7693928120 7904526 Z96.1 Myopia 12243464 H52.13 Presbyopia 43245297 H52. 4 [id number] MIQUEL HERRMANN MD [facility] [address] [place] [address] 12/28/2017 10:05:54 12/28/2017 10:41:40 Hypertensive disorder 27747419 I10 Hyperlipidemia 68235159 E78.5 Chronic depression 51938 0009 F34.1 Chronic ob structive pulmonary disease 70996209 J44.9 Diabetic p eripheral neuropathy 419459678 E11.40 Patient has signed CSA and SILVINO is appropriat e. Body mass index 40+ - severely obese 568734240 Z68.42 Continue weight loss efforts. [id number] JERRY ROSENTHAL APRN ENDOCRINO [facility]Y [address] [place] [address] 01/10/2018 09:41:56 01/10/2018 12:47:12 Uncontrolled type 2 diabetes mellitus 660913766 E11.65 Diabetes mellitus Type 2, uncontroll ed. A 1c in office today of 8.1%, slightly down from 8.2%. G oal A1C by ADA criteria is less than [...] thereafter .- Patient is instructed to restrict his carbohydra jacquelyn (less than 60 g per meal and less than 15-20 g per snack). Reinforced importance of carbohydra te restrictio n and dietary discretion . - Monitor blood glucose at least 3 times per day before meals and before bedtime and any time he feels low. Blood glucose goals reviewed (i.e. fasting 80-130, post-prand ial <180, and hypoglycem ia <70). Patient advised to call our office if recurrent hypoglycem ia. - Dietitian referral: Yes; Follow up with Augustine Louis RD as scheduled. - Encouraged to be active (30 minutes of moderate intensity exercise i.e. walking 5 times weekly). Weight loss will help with insulin sensitizat ion. - Hypoglycem ia symptoms explained and treatment for this reviewed. - Patient is up to date on foot exam. - Patient is up to date on eye exam. (Dr. Flowers) - Patient is needs urine testing for microalbum in. (ARB); Orders placed. - Patient verbalized understand ing of treatment plan. All questions answered. -Last labs on 07/11/17BUN 18Creatini ne 0.91GFR 89AST 24ALT 26MACR positive (40) 02/07/17 Hyperlipidemia 24073183 E78.5 Goal LDL is under 100 mg/dl. Last LDL: 102 on 07/11/17Tri glycerides : 202 Continue pravastati n as prescribed .Continue dietary changes as recommende d. Essential hypertension 51923403 I10 Goal B.P is less than 140/90 mmHg. Continue current anti-hyper tensive medication s as appropriat e per patient s PCP. Renal diso rder due to type 2 diabetes mellitus 057337417 E11.22 MACR positive (40) on 02/07/17.Co ntinue losartan therapy as ordered.Re peat MACR today. [id number] LITZY HERNANDEZ PA-C [facility] [address] [place] [address] 05/04/2018 10:54:04 05/04/2018 13:04:21 Nausea 624153650 R11.0 Contusion of rib 7270926 06 S20.20XS Lower resp iratory tract infection 76300895 J22 [id number] MIQUEL HERRMANN MD [facility] [address] [place] [address] 06/01/2018 14:30:56 06/01/2018 15:59:36 Viral gastroenteritis 345235952 A08.4 This has resolved but he still has some fatigue. Upper resp iratory infection 82686692 J06.9 His symptoms are consistent with a [...] is taking currently. Osteoarthr itis of knee 440676046 M17.[address] Esme newton [id number] JERRY ROSENTHAL APRN ENDOCRINO [facility]Y [address] [place] [address] 07/06/2018 10:18:23 07/06/2018 16:03:40 Uncontrolled type 2 diabetes mellitus 716590387 E11.65 Diabetes mellitus Type 2, uncontroll ed. A 1c in office today of 7.7%, down from 8.1% 01/10/18. G oal A1C by ADA criteria is less than 7%. Random blood glucose 280. Recommenda tions: -Continue levemir 60 units twice daily-Cont inue Novolog 20 units before breakfast, lunch, and dinner.-Co ntinue Farxiga 10mg daily.-Con tinue Victoza. Inject 1.8mg daily.- Patient is instructed to restrict his carbohydra jacquelyn (less than 60 g per meal and less than 15-20 g per snack). Reinforced importance of carbohydra te restrictio n and dietary discretion . - Monitor blood glucose at least 3 times per day before meals and before bedtime and any time he feels low. Blood glucose goals reviewed (i.e. fasting 80-130, post-prand ial <180, and hypoglycem ia <70). Patient advised to call our office if recurrent hypoglycem ia. - Dietitian referral: Previously referred; MNT 2017 - Encouraged to be active (30 minutes of moderate intensity exercise i.e. walking 5 times weekly). Weight loss will help with insulin sensitizat ion. - Hypoglycem ia symptoms explained and treatment for this reviewed. - Patient is up to date on foot exam. - Patient is up to date on eye exam. (Dr. Flowers) - Patient is up to date on urine testing for microalbum in. (ARB); - Patient verbalized understand ing of treatment plan. All questions answered. -Last labs on 07/11/17- pt has physical next week and anticipate d fasting labs with PCP, not fasting todayBUN 18Creatini ne 0.91GFR 89AST 24ALT 26MACR positive (119) 01/10/18 Hyperlipidemia 61848941 E78.5 Goal LDL is under 100 mg/dl. Last LDL: 102 on 07/11/17Tri glycerides : 202 Continue pravastati n as prescribed .Continue dietary changes as recommende d. Essential hypertension 35082465 I10 Goal B.P is less than 140/90 mmHg. Continue current anti-hyper tensive medication s as appropriat e per patient s PCP. Renal diso rder due to type 2 diabetes mellitus 118887035 E11.22 MACR positive (119) on 01/10/18.Co ntinue losartan therapy as ordered. Body mass index 40+ - severely obese 833011179 Z68.42 Dietary recommenda tions as above. Exercise recommenda tions as above. [id number] MIQUEL HERRMANN MD [facility] [address] [place] [address] 07/13/2018 12:23:23 07/13/2018 14:09:48 Adult health examination 332145660 Z00.00 Screening for malignant neoplasm of prostate 200878499 Z12.5 Hypertensive disorder 38 955693 I10 Hyperlipidemia 90482679 E78.5 Chronic depression 22427 0009 F34.1 Depression is uncontroll ed. Increase Prozac to 60 mg daily. If not improving in one month or worsening, he will let me know. Chronic ob structive pulmonary disease 65015637 J44.9 Diabetic p eripheral neuropathy 238695306 E11.40 Patient has signed CSA and SILVINO is appropriat e.Patient doesn't need gabapentin today. Body mass index 40+ - severely obese [id number] Z68.42 Continue weight loss efforts. Screening for malignant neoplasm of colon 984557857 Z12.11 Arrange referral to GI for colonoscop y Candidal balanitis 32464 007 B37.42 Diflucan as directed. If not improving, he will let me know we can arrange referral to urology dermatolog y. [id number] JERRY ROSENTHAL APRN ENDOCRINO LOGY [address] [place] [address] 12/29/2018 10:22:43 12/29/2018 11:09:20 Uncontrolled type 2 diabetes mellitus 967460060 E11.65 Diabetes mellitus Type 2, uncontroll ed. A 1c in office today of 10.2%, up from 7.7% 07/06/18. G oal A1C by ADA criteria is less than [...] with logs.- Patient is instructed to restrict his carbohydra jacquelyn (less than 60 g per meal and less than 15-20 g per snack). Reinforced importance of carbohydra te restrictio n and dietary discretion . - Monitor blood glucose at least 3 times per day before meals and before bedtime and any time he feels low. Blood glucose goals reviewed (i.e. fasting 80-130, post-prand ial <180, and hypoglycem ia <70). Patient advised to call our office if recurrent hypoglycem ia. - Dietitian referral: Previously referred; MNT 2017 - Encouraged to be active (30 minutes of moderate intensity exercise i.e. walking 5 times weekly). Weight loss will help with insulin sensitizat ion. - Hypoglycem ia symptoms explained and treatment for this reviewed. - Patient is up to date on foot exam. - Patient is up to date on eye exam. (Dr. Flowers) - Patient is needs urine testing for microalbum in. (ARB); Will order at next visit. - Patient verbalized understand ing of treatment plan. All questions answered. -Last labs on 07/13/18BUN 18Creatini ne 0.88GFR 91AST 20ALT 21MACR positive (119) 01/10/18 Hyperlipidemia 41159503 E78.5 Goal LDL is under 100 mg/dl. Last LDL: 105 on 07/13/18Tri glycerides : 284 Continue pravastati n as prescribed per PCP.Contin ue dietary changes as recommende d. Essential hypertension 42050469 I10 Goal B.P is less than 140/90 mmHg. Continue current anti-hyper tensive medication s as appropriat e per patient s PCP. Renal diso rder due to type 2 diabetes mellitus 158571628 E11.22 MACR positive (119) on 01/10/18.Co ntinue losartan therapy as ordered. Candidiasis of skin 4988 3006 B37.2 -Start diflucan as below. [id number] MIQUEL HERRMANN MD [facility] [address] [facility] [place] [address] 01/19/2019 15:07:43 01/19/2019 15:42:54 Hypertensive disorder 43693087 I10 Hypertensi on is controlled . Hyperlipidemia 76980397 E78.5 Chronic depression 95168 0009 F34.1 Chronic ob structive pulmonary disease 03555797 J44.9 Diabetic p eripheral neuropathy 482877491 E11.40 Patient has signed CSA and SILVINO is appropriat e Body mass index 40+ - severely obese 759287786 Z68.42 Continue weight loss efforts. [id number] MIQUEL HERRMANN MD [address] [facility] [place] [address] 05/09/2019 10:26:05 05/09/2019 11:25:59 Strain of neck muscle 086389096 S16.1XXA Medrol Dosepak as directed since he can't take anti-infla mmatories. He can't tolerate steroids okay. Arrange physical therapy. Screening for malignant neoplasm of colon 773196291 Z12.11 Insomnia 855885963 G47.0 0 Discontinu e Benadryl begin trazodone as directed. Side effects discussed with patient Chronic ob structive pulmonary disease 01399363 J44.9 Steroid pack should help his residual COPD exacerbati on and if not he will let me know. Normal grief reaction 27 0039565 F43.20 I expressed my condolence s to Mr. Allen and his daughter on the of his and her mother [id number] JERRY ROSENTHAL APRN ENDOCRINO LOGY [address] [place] [address] 05/10/2019 14:05:21 05/10/2019 15:12:59 Uncontrolled type 2 diabetes mellitus 912822099 E11.65 Diabetes mellitus Type 2, uncontroll ed. A 1c in office today of 11.4%, up from 10.2% 12/29/18. G oal A1C by ADA criteria is less than [...] with logs.- Patient is instructed to restrict his carbohydra jacquelyn (less than 60 g per meal and less than 15-20 g per snack). Reinforced importance of carbohydra te restrictio n and dietary discretion . - Monitor blood glucose at least 3 times per day before meals and before bedtime and any time he feels low. Blood glucose goals reviewed (i.e. fasting 80-130, post-prand ial <180, and hypoglycem ia <70). Patient advised to call our office if recurrent hypoglycem ia. - Dietitian referral: Previously referred; MNT 2017; Discussed diabetes managment program, pt is agreeable to participat e now. - Encouraged to be active (30 minutes of moderate intensity exercise i.e. walking 5 times weekly). Weight loss will help with insulin sensitizat ion. - Hypoglycem ia symptoms explained and treatment for this reviewed. - Patient is up to date on foot exam. - Patient is needs eye exam. (Dr. Flowers) Pt to schedule. - Patient is up to date on urine testing for microalbum in. (ARB); - Patient verbalized understand ing of treatment plan. All questions answered. -Last labs on 01/19/19BUN 21Creatini ne 1.10GFR 70AST 22ALT 22MACR positive (100) Hyperlipidemia 56008015 E78.5 Goal LDL is under 100 mg/dl. Last LDL: 105 on 07/13/18Tri glycerides : 284 Pt reports not taking pravastati n. Has refills on file. Advised patient to restart. Continue pravastati n as prescribed per PCP.Contin ue dietary changes as recommende d. Essential hypertension 25096014 I10 Goal B.P is less than 140/90 mmHg. Continue current anti-hyper tensive medication s as appropriat e per patient s PCP. 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 [id number] [facility] CLOS[facility] [address] [place] [address] 1 05/28/2019 11:38:17 05/28/2019 13:55:27 [id number] [facility] CLOS[facility] [address] [place] [address] 1 06/04/2019 11:47:24 06/04/2019 12:06:08 [id number] YANNI COBIAN PA-C [address] [place] [address] 06/07/2019 12:54:56 06/07/2019 13:25:43 Essential hypertension 43354009 I10 continue with amlodipine and his losartan. Two-week follow-up. Reduce sodium diet. Work on weight loss. 2 weeks Administra tion of influenza vaccine 52159552 Z23 [id number] [facility] [address] [place] [address] 1 06/25/2019 11:43:55 06/25/2019 12:09:11 [id number] YANNI COBIAN PA-C [address] [place] [address] 06/29/2019 13:43:40 06/29/2019 14:18:27 Hypertensive disorder 92451505 I10 reduced sodium diet. monitor and keep log of BP Active or passive immunization 965576756 Z23 Screening colonoscopy 44 0188314 Z12.11 [id number] [facility] CLOS[facility] [address] [place] [address] 1 07/09/2019 10:45:23 07/09/2019 11:14:41 [id number] MIQUEL HERRMANN MD [address] [place] [address] 07/23/2019 14:01:13 07/23/2019 15:32:24 Adult health examination 064058272 Z00.00 Hypertensive disorder 38 956427 I10 Hypertensi on is controlled . Hyperlipidemia 47525716 E78.5 I explained that I didn't think pravastati n was causing penile rash or memory difficulti es. Discussed the benefits outweigh the risk. He will continue it. Chronic depression 24564 0009 F34.1 Chronic ob structive pulmonary disease 19604430 J44.9 Diabetic p eripheral neuropathy 530785691 E11.40 Patient has signed CSA and SILVINO is appropriat e Body mass index 40+ - severely obese 320572973 Z68.42 Continue weight loss efforts. Memory impairment 797171 006 R41.3 We'll check TSH and B12. If his symptoms should worsen, he will let me know within arrange referral to neurology. 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 A 1c in office today of 7.5%, down from 11.4% 05/10/19. G oal A1C by ADA criteria is less than 7%. Random blood glucose 131. Recommenda tions: -Increase levemir 30u AM and 34 units at bedtime.-C ontinue Novolog 15-20 units before breakfast, lunch, and dinner.-Co ntinue Victoza. Inject 1.8mg daily.- Patient is instructed to restrict his carbohydra jacquelyn (less than 60 g per meal and less than 15-20 g per snack). Reinforced importance of carbohydra te restrictio n and dietary discretion . - Monitor blood glucose at least 3 times per day before meals and before bedtime and any time he feels low. Blood glucose goals reviewed (i.e. fasting 80-130, post-prand ial <180, and hypoglycem ia <70). Patient advised to call our office if recurrent hypoglycem ia. - Dietitian referral: Previously referred; MNT 2017; Discussed diabetes management program, pt is agreeable to participat e now. - Encouraged to be active (30 minutes of moderate intensity exercise i.e. walking 5 times weekly). Weight loss will help with insulin sensitizat ion. - Hypoglycem ia symptoms explained and treatment for this reviewed. - Patient is up to date on foot exam. - Patient is needs eye exam. (Dr. Flowers) Pt has upcoming appt scheduled. - Patient is up to date on urine testing for microalbum in. (ARB); - Patient verbalized understand ing of treatment plan. All questions answered. -Last labs on 07/23/19BUN 19Creatini ne 0.83GFR 92AST 18ALT 24MACR positive (100) 01/19/19 Hyperlipidemia 03696384 E78.5 Goal LDL is under 100 mg/dl. Last LDL: 93 on 07/23/19Trig lycerides: 138 Continue pravastati n as prescribed per PCP.Contin ue dietary changes as recommende d. Essential hypertension 58196282 I10 Goal B.P is less than 140/90 mmHg. Continue current anti-hyper tensive medication s as appropriat e per patient s PCP. Renal diso rder due to type 2 diabetes mellitus 938301260 E11.22 MACR positive (100) on 01/19/19.Con tinue losartan therapy as ordered. [id number] [facility] [address] [place] [address] 08/17/2019 10:49:39 08/17/2019 11:02:31 [id number] ELIZABETH CERNA DO DERMATOLO [facility] [address] [place] [address] 08/20/2019 11:08:39 08/20/2019 13:30:12 Neoplasm of uncertain behavior of skin 48338820 D48.5 L sikhism somewhat deeper, possibly subcutaneo us neoplasm punch biopsy sent for path r/o carcinoma vs subq neoplasm/n os Wound care discussed with patient. Leave the bandage on for 24 hrs. Clean the area daily with warm soapy water, and apply polysporin ointment and a bandaid once daily until healed. Call the office if any increase in redness, drainage, or pain. Raised loly orrheic keratosis [id number] 47940 L82.1 If any lesions change, or if any other new or symptomati c lesions occur, patient understand s to return to the clinic for further evaluation Discussed sun precaution s; SPF 30+ Inflamed s eborrheic keratosis 412205431 L82.[address] per patients request: bilateral clavicles x4 , L upper back x1 pt tolerated well advised pt what to expect with freezing Skin sensa tion disturbance 07951214 R20.9 ISK Solar lentiginosis 47570 2006 L81.4 benign reassuranc e sunscren hats [id number] MORE MONTOYAC [address] [place] [address] 08/20/2019 12:20:22 08/20/2019 14:14:14 Anxiety 37362402 F41.9 will prescribe a few ativan for patient for upcoming dental procedures . this has worked well for his anxiety in the past. Silvino appropriat e on 07/20/19. CSA signed. UDS negative-a ppropriate . [id number] [facility] T CLOS[facility] [address] [place] [address] 1 08/31/2019 11:40:51 08/31/2019 11:53:12 [id number] EVITA DIAMOND MD SURGERY SCHEDULE [address] [place] [address] 1 09/04/2019 08:11:04 09/04/2019 08:12:56 [id number] [facility] T CLOS[facility] [address] [place] [address] 1 09/14/2019 11:42:23 09/14/2019 11:54:38 [id number] [facility] T CLOSED [address] [place] [address] 1 10/25/2019 14:34:41 10/25/2019 14:48:31 [id number] JERRY ROSENTHAL APRN ENDOCRINO [facility] SB [address] [place] [address] 1 11/15/2019 13:07:42 11/15/2019 13:33:40 Uncontrolled type 2 diabetes mellitus 874444780 E11.65 Diabetes mellitus Type 2, uncontroll ed. A 1c in office today of 7.9%, up from 7.5%, 08/10/19. G oal A1C by ADA criteria is less than 7%. Random blood glucose 247. Recommenda tions: -Increase levemir 54u AM and 54 units at bedtime.-I ncrease Novolog 22-24 units before breakfast, lunch, and dinner.-Co ntinue Victoza. Inject 1.8mg daily.- Patient is instructed to restrict his carbohydra jacquelyn (less than 60 g per meal and less than 15-20 g per snack). Reinforced importance of carbohydra te restrictio n and dietary discretion . - Monitor blood glucose at least 3 times per day before meals and before bedtime and any time he feels low. Blood glucose goals reviewed (i.e. fasting 80-130, post-prand ial <180, and hypoglycem ia <70). Patient advised to call our office if recurrent hypoglycem ia. - Dietitian referral: Previously referred; MNT 2017; - Encouraged to be active (30 minutes of moderate intensity exercise i.e. walking 5 times weekly). Weight loss will help with insulin sensitizat ion. - Hypoglycem ia symptoms explained and treatment for this reviewed. - Patient is up to date on foot exam. - Patient is needs eye exam. (Dr. Flowers) Pt needs to reschedule , appt cancelled d/t COVID-19. - Patient is up to date on urine testing for microalbum in. (ARB); - Patient verbalized understand ing of treatment plan. All questions answered. -Last labs on 07/23/19BUN 19Creatini ne 0.83GFR 92AST 18ALT 24MACR positive (100) 01/19/19 Hyperlipidemia 20023474 E78.5 Goal LDL is under 100 mg/dl. Last LDL: 93 on 07/23/19Trig lycerides: 138 Continue pravastati n as prescribed per PCP.Contin ue dietary changes as recommende d. Essential hypertension 10586650 I10 Goal B.P is less than 140/90 mmHg. Continue current anti-hyper tensive medication s as appropriat e per patient s PCP. Renal diso rder due to type 2 diabetes mellitus 676844167 E11.22 MACR positive (100) on 01/19/19.Con tinue losartan therapy as ordered. [id number] MIQUEL HERRMANN MD [facility] [address] [place] [address] 11/16/2019 13:27:55 11/19/2019 08:40:45 Chronic obstructive pulmonary disease 21950702 J44.9 Prednisone as directed. He is aware of potential side effects of prednisone . Continue inhalers as directed. I encouraged him to follow up with his pulmonolog ist next week. If he is acutely worse, he will go to the emergency room Diarrhea 57959378 R19.7 Diarrhea has resolved. If it should recur and worsen, he will let me know Fatigue 48617011 R53.83 We'll check fatigue labs. I suspect his fatigue is largely due to his COPD. [id number] [facility] CLOS[facility] [address] [place] [address] 11/29/2019 12:31:51 11/29/2019 12:35:35 [id number] CELIA MONGE PA-C [address] [place] [address] 01/10/2020 13:05:49 01/10/2020 14:46:26 Chronic obstructive pulmonary disease 72186565 J44.9 pt has chronic SOA on symbicort. has failed spiriva and advair. using nebs and albuterol inhaler frequently . [facility], but he would like O2. he stays short of air 10/01. need appt for eval for this. Fatigue 17492217 R53.83 chronic fatigue. never came in for labs in late october. will order. [id number] MIQUEL HERRMANN MD [facility] [address] [place] [address] 01/28/2020 14:25:49 01/28/2020 15:19:26 Hypertensive disorder 90408400 I10 Hypertensi on is controlled . Hyperlipidemia 20665978 E78.5 Chronic depression 37445 0009 F34.1 Chronic ob structive pulmonary disease 24360273 J44.9 He will follow-up with his pulmonolog ist at the [facility] and discuss oxygen. Diabetic p eripheral neuropathy 581712254 E11.40 Patient has signed CSA and SILVINO is appropriat e Body mass index 40+ - severely obese 339533526 Z68.42 Continue weight loss efforts. Memory impairment 863429 006 R41.3 Mild. If it should worsen, he will let me know and we can arrange referral to neurology [id number] JERRY ROSENTHAL APRN ENDOCRINO LOGY [address] [place] [address] 03/11/2020 14:01:47 03/11/2020 14:45:04 Uncontrolled type 2 diabetes mellitus 265574921 E11.65 Diabetes mellitus Type 2, uncontroll ed. A 1c in office today of 8.3%, up from 7.9%, 11/15/19. G oal A1C by ADA criteria is less than [...] titration. - Patient is instructed to restrict his carbohydra jacquelyn (less than 45 g per meal and less than 15-20 g per snack). Reinforced importance of carbohydra te restrictio n and dietary discretion . - Monitor blood glucose at least 3 times per day before meals and before bedtime and any time he feels low. Blood glucose goals reviewed (i.e. fasting 80-130, post-prand ial <180, and hypoglycem ia <70). Patient advised to call our office if recurrent hypoglycem ia. - Dietitian referral: Previously referred; MNT 2017; - Encouraged to be active (30 minutes of moderate intensity exercise i.e. walking 5 times weekly). Weight loss will help with insulin sensitizat ion. - Hypoglycem ia symptoms explained and treatment for this reviewed.* * Risk reviewed with pt. - Patient is up to date on foot exam. - Patient is needs eye exam. (Dr. Flowers) Pt needs to reschedule , appt cancelled d/t COVID-19. - Patient is needs urine testing for microalbum in. (ARB); - Patient verbalized understand ing of treatment plan. All questions answered. -Last labs on 01/28/20BUN 18Creatini ne 0.92GFR 86AST 24ALT 33MACR positive (100) 01/19/19 Hyperlipidemia 34476731 E78.5 Goal LDL is under 100 mg/dl. Last LDL: 124 on 01/28/20Tri glycerides : 291 Continue pravastati n as prescribed per PCP.Contin ue dietary changes as recommende d. Essential hypertension 22139795 I10 Goal B.P is less than 140/90 mmHg. Continue current anti-hyper tensive medication s as appropriat e per patient s PCP. Renal diso rder due to type 2 diabetes mellitus 279597557 E11.22 MACR positive (100) on 01/19/19.Con tinue losartan therapy as ordered. [id number] ISAAK FLOWERS MD OPHTHALMO LOGY [address] [place] [address] 04/03/2020 14:06:20 04/03/2020 16:44:47 Type 1 diabetes mellitus 39400395 E10.9 Bilateral pseudophakia 3927407291 1999068 Z96.1 Myopic astigmatism 04138 4005 H52.209 Presbyopia 35829230 H52. 4 [id number] MIQUEL HERRMANN MD [facility] [address] [place] [address] 06/16/2020 15:03:58 06/16/2020 16:22:36 Chronic obstructive pulmonary disease 12605070 J44.9 O2 level is 93% at rest and 84% after walking briefly. Arrange home oxygen at 2 L/m per nasal cannula. Arrange referral to pulmonary. Continue current inhalers. If he should acutely worsen, he will go to the emergency room. Snoring 78401246 R06.83 Arrange appointmen t with pulmonary Administra tion of influenza vaccine 33190983 Z23 [id number] SILVESTRE MCLAIN PA-C PULMONARY [address] [facility], [address] [place] [address] 07/10/2020 12:59:17 07/11/2020 10:03:15 Dyspnea on exertion 66735243 R06.09 chest x-ray does not show infiltrate today. exercise pulse oximetry shows oxygen saturation on room air of 88%. PFTs do not show evidence of COPD. DLCO is normal. May also need cardiac evaluation . Increased risks of cardiac disease due to HTN, obesity, and diabetes. Hypoxemia 260811032 R09. [address] PE protocol ordered for hypoxemia. Patient will also need an echocardio gram with a bubble study to evaluate for CHF, pulmonary hypertensi on, and a shunt. CT chest PE protocol ordered for tomorrow morning. will call with result. he would be at increased risk for DVT/PE due to obesity. Former hea vy tobacco smoker 3441744904 47987 Z87.891 patient is a candidate for CT chest lung cancer screening. He has a 32-pack-ye ar smoking history. This is not ordered today because a CT PE protocol was ordered. Morbid obesity 914414142 E66.01 hypoxemia may be related to obesity hypoventil ation syndrome. Patient will be returning to clinic tomorrow for an ABG (had to leave today) Snoring 73585825 R06.83 patient will also neck need an in lab sleep study to evaluate for SARAI. [id number] HERMAN MONTOYA MD PULMONARY [address] [facility], [address] [place] [address] 07/11/2020 12:22:59 07/11/2020 13:03:29 Dyspnea on exertion 73609620 R06.09 [id number] JERRY ROSENTHAL APRN ENDOCRINO LOGY [address] [place] [address] 07/16/2020 13:54:54 07/16/2020 14:37:50 Multiple complications due to type 2 diabetes mellitus 961092253 E11.8 Diabetes mellitus Type 2, controlled . A 1c in office today of 6.8%, up from 8.3%. G oal A1C by ADA criteria is less than 7%. Random blood glucose 198. Recommenda tions: -Congratul ated pt on significan t improvemen t in A1c! -Continueh umulin R U-500. [id number] efore breakfast, 105ubefore dinner, [id number] re bedtime snack. Take this insulin 20-30minbe fore the meal. Make take 1/2 dose for 1/2 the carbs.- Patient is instructed to restrict his carbohydra jacquelyn (less than 45 g per meal and less than 15-20 g per snack). Reinforced importance of carbohydra te restrictio n and dietary discretion . - Monitor blood glucose at least 3 times per day before meals and before bedtime and any time he feels low. Blood glucose goals reviewed (i.e. fasting 80-130, post-prand ial <180, and hypoglycem ia <70). Patient advised to call our office if recurrent hypoglycem ia. - Dietitian referral: Previously referred; MNT 2017; - Encouraged to be active (30 minutes of moderate intensity exercise i.e. walking 5 times weekly). Weight loss will help with insulin sensitizat ion. - Hypoglycem ia symptoms explained and treatment for this reviewed.* * Risk reviewed with pt. - Patient is up to date on foot exam. - Patient is up to date on eye exam. (Dr. Flowers) - Patient is needs urine testing for microalbum in. (ARB); Orders placed. - Patient verbalized understand ing of treatment plan. All questions answered. -Last labs on 01/28/20BUN 18Creatini ne 0.92GFR 86AST 24ALT 33MACR positive (100) 01/19/19 Hyperlipidemia 02844514 E78.5 Goal LDL is under 100 mg/dl. Last LDL: 124 on 01/28/20Tri glycerides : 291 Continue pravastati n as prescribed per PCP.Contin ue dietary changes as recommende d. Essential hypertension 05362778 I10 Goal B.P is less than 140/90 mmHg. Continue current anti-hyper tensive medication s as appropriat e per patient s PCP. Renal diso rder due to type 2 diabetes mellitus 950484953 E11.22 MACR positive (100) on 01/19/19.Con tinue losartan therapy as ordered.Re peat MACR. [id number] ISAAK CASTRO MD [facility] [address] [place], [place] [address] [address] 07/21/2020 13:50:01 07/22/2020 09:13:55 Dyspnea on exertion 76046715 R06.09 [id number] MIQUEL HERRMANN MD [facility] [address] [place] [address] 08/12/2020 15:09:47 08/12/2020 15:45:22 Adult health examination 168283569 Z00.00 Hypertensive disorder 38 399192 I10 Hypertensi on is controlled . Hyperlipidemia 34302216 E78.5 Chronic depression 47474 0009 F34.1 Stable. Continue fluoxetine Chronic ob structive pulmonary disease 16571091 J44.9 [facility] Diabetic p eripheral neuropathy 732435020 E11.40 Patient has signed CSA and SILVINO is appropriat e Body mass index 40+ - severely obese 966052058 Z68.42 Continue weight loss efforts. Screening for malignant neoplasm of prostate 126894529 Z12.5 [id number] MIQUEL HERRMANN MD [facility] [address] [address] 09/25/2020 13:44:45 09/25/2020 14:14:10 Venous insufficiency of leg 857747170 I87.2 I explained venous insufficie ncy to patient and his . Elevate legs. Consider compressio n hose. Amlodipine may be contributi ng some decreased the dosage. Also will begin HCTZ. Hypertensive disorder 38 766171 I10 Hypertensi on is controlled Decrease amlodipine to 5 mg daily and begin HCTZ 12.5 mg every morning. Monitor blood pressure and he will let me know if he doesn't stay below 140/90 Sprain of shoulder rotator cuff 7352938468 04 S43.422A Left rotator cuff sprain Alternate heat and ice to area. Tylenol as directed. If not improving, we'll arrange referral to physical therapy. [id number] JERRY ROSENTHAL APRN ENDOCRINO LOGY [address] [place] [address] 11/10/2020 13:04:09 11/10/2020 15:49:36 Multiple complications due to type 2 diabetes mellitus 906466929 E11.8 Diabetes mellitus Type 2, controlled . A 1c in office today of 7.0%, up from 6.8%, 07/16/20. G oal A1C by ADA criteria is less than 7%. Random blood glucose 237. Recommenda tions: -Congratul ated pt on maintainin g goal A1c! -Adjust humulin R U-500. Inject 60u before breakfast, 105u before dinner, and 30-55u before bedtime snack. Take this insulin 20-30min before the meal. Make take 1/2 dose for 1/2 the carbs. - Patient is instructed to restrict his carbohydra jacquelyn (less than 45 g per meal and less than 15-20 g per snack). Reinforced importance of carbohydra te restrictio n and dietary discretion . - Monitor blood glucose at least 3 times per day before meals and before bedtime and any time he feels low. Blood glucose goals reviewed (i.e. fasting 80-130, post-prand ial <180, and hypoglycem ia <70). Patient advised to call our office if recurrent hypoglycem ia. - Dietitian referral: Previously referred; MNT 2017; - Encouraged to be active (30 minutes of moderate intensity exercise i.e. walking 5 times weekly). Weight loss will help with insulin sensitizat ion. - Hypoglycem ia symptoms explained and treatment for this reviewed.* * Risk reviewed with pt. - Patient is up to date on foot exam. - Patient is up to date on eye exam. (Dr. Flowers) - Patient is up to date on urine testing for microalbum in. (ARB); Orders placed. - Patient verbalized understand ing of treatment plan. All questions answered. -Last labs on 01/28/20 BUN 18 Creatinine 0.92 GFR 86 AST 24 ALT 33 MACR positive (249) 07/16/20 Hyperlipidemia 62902645 E78.5 Goal LDL is under 100 mg/dl. Last LDL: 124 on 01/28/20Tri glycerides : 291 Continue pravastati n as prescribed per PCP.Contin ue dietary changes as recommende d. Essential hypertension 64828559 I10 Goal B.P is less than 140/90 mmHg. Continue current anti-hyper tensive medication s as appropriat e per patient s PCP. Renal diso rder due to type 2 diabetes mellitus 950315450 E11.22 MACR positive (249) on 07/16/20. Continue losartan therapy as ordered. [id number] MIQUEL HERRMANN MD [facility] [address] [place] [address] 02/09/2021 14:37:31 02/09/2021 15:51:14 Diabetic peripheral neuropathy 816935737 E11.40 Patient has signed CSA and SILVINO is appropriat e. Continue gabapentin COVID-[address] scan consistent with COVID-19 pneumonia along with significan t desaturati on with minimal exertion. I encouraged him to go back to the emergency room right away and he states that he will do so. 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 Call with changing/f luxuating vision. [id number] JERRY ROSENTHAL APRN ENDOCRINO LOGY [address] [place] [address] 08/03/2021 11:35:06 08/11/2021 14:09:26 Multiple complications due to type 2 diabetes mellitus 831307372 E11.8 Diabetes mellitus Type 2, uncontroll ed. A 1c in office today of 8.2%, up from 7.0%, 11/10/20 G oal A1C by ADA criteria is less than [...] c CGM. This patient has diabetes mellitus type 2; is using a home blood glucose monitor and performing 4 or more tests per day; is on multiple daily insulin injections ; and requires frequent adjustment s by the patient on the basis of therapeuti c CGM testing results.- Patient is instructed to restrict his carbohydra jacquelyn (less than 45 g per meal and less than 15-20 g per snack). Reinforced importance of carbohydra te restrictio n and dietary discretion . - Monitor blood glucose at least 4 times per day before meals and before bedtime and any time he feels low. Blood glucose goals reviewed (i.e. fasting 80-130, post-prand ial <180, and hypoglycem ia <70). Patient advised to call our office if recurrent hypoglycem ia. - Dietitian referral: Previously referred; MNT 2017; - Encouraged to be active (30 minutes of moderate intensity exercise i.e. walking 5 times weekly). Weight loss will help with insulin sensitizat ion. - Hypoglycem ia symptoms explained and treatment for this reviewed.* * Risk reviewed with pt. - Patient is up to date on foot exam. - Patient is up to date on eye exam. (Dr. Flowers) - Patient is up to date on urine testing for microalbum in. (ARB); Orders placed. - Patient verbalized understand ing of treatment plan. All questions answered. -Last labs on 02/09/21 BUN 11 Creatinine 0.60 GFR 135 AST 26 ALT 19 MACR positive (249) 07/16/20 Hyperlipidemia 74184689 E78.5 Goal LDL is under 100 mg/dl. Last LDL: 75 on 08/12/20Tri glycerides : 235Continu e pravastati n as prescribed per PCP.Contin ue dietary changes as recommende d. Essential hypertension 96586891 I10 Goal B.P is less than 140/90 mmHg. Continue current anti-hyper tensive medication s as appropriat e per patient s PCP. Renal diso rder due to type 2 diabetes mellitus 935704785 E11.22 MACR positive (249) on 07/16/20. Continue losartan therapy as ordered. [id number] MIQUEL HERRMANN MD [facility] [address] [place] [address] 04/28/2021 10:14:41 04/28/2021 12:09:14 Hypertensive disorder 19989504 I10 Hypertensi on is controlled . Continue current medication s Hyperlipidemia 19166902 E78.5 Continue pravastati n and a low-choles terol diet Chronic depression 71610 0009 F34.1 Stable. Continue fluoxetine Chronic ob structive pulmonary disease 66115376 J44.9 [facility]. I encouraged patient to follow-up with his pulmonolog ist soon Diabetic p eripheral neuropathy 803502754 E11.40 Patient has signed CSA and SILVINO is appropriat e Body mass index 40+ - severely obese 360190061 Z68.42 Continue weight loss efforts. Pneumonia 402667149 J18. 9 Patient had recent pneumonia we will check chest x-ray. He still has cough productive of discolored sputum. Doxycyclin e as directed. Bilateral rotator cuff tendinitis [id number] 3229841 M67.813 I encouraged patient to see his orthopedic surgeon soon. Continue Tylenol as directed for discomfort . [id number] KARUNA ALDRIDGE MD UROLOGY [address] [place] [address] 05/19/2021 14:24:24 05/20/2021 08:40:14 Lichen sclerosus of penis 958820884 N48.0 Lower urin terence tract symptoms due to benign prostatic hypertrophy 0295378287 9101 N40.1 Screening for malignant neoplasm of prostate 058314507 Z12.5 Urinary incontinence 165 443918 R32 Morbid obesity 533064724 E66.01 Type 2 katie betes mellitus without complication 363690675 E11.9 [id number] KARUNA ALDRIDGE MD SURGERY SCHEDULE [address] [place] [address] 07/13/2021 11:43:00 07/13/2021 11:44:06 Lichen sclerosus of penis 012898017 N48.0 Lower urin terence tract symptoms due to benign prostatic hypertrophy 1459807767 9101 N40.1 Urinary incontinence 165 422595 R32 Morbid obesity 652802362 E66.01 Type 2 katie betes mellitus without complication 583606890 E11.9 [id number] MIQUEL HERRMANN MD [facility] [address] [place] [address] 07/28/2021 11:30:32 07/28/2021 12:06:14 Hyperlipidemia 44054378 E78.5 Hold pravastati n for now. Consider alternativ e to pravastati n if Dr. Cerna believes rash is related to pravastati n. Chronic dermatitis 22603 007 L30.9 Dermatitis of the lower legs which has a consistenc y of venous stasis dermatitis but could be drug reaction to pravastati n. Arrange referral to Dr. Cerna for further evaluation and his opinion. If Dr. Cerna feels like it is venous stasis dermatitis then will restart pravastati n. 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 Kuo in [facility] in November. He is still having pain in the area. There is no evidence of cellulitis or acute contact dermatitis . He failed tx with triamcinol one 0.1% BID for several weeks. His surgeon suspects an allergic reaction to subepiderm al sutures, discussed with him may take 1 year to dissolve. I recommende d he continue post op care with Dr. Kuo [id number] MIQUEL HERRMANN MD [facility] [address] [facility] [place] [address] 08/18/2021 10:15:13 08/18/2021 11:39:01 Administration of pneumococcal vaccine 92083642 Z23 [id number] JERRY ROSENTHAL APRN ENDOCRINO [facility]Y [address] [place] [address] 10/09/2021 09:08:20 10/09/2021 09:59:25 Multiple complications due to type 2 diabetes mellitus 792081074 E11.8 Diabetes mellitus Type 2, uncontroll ed. A 1c in office today of 9.2%, up from 8.2%, 08/03/21. G oal A1C by ADA criteria is less than [...] dexcom today. Advised him to bring in information management manager in 2 weeks for download and further adjustment s to insulin regimen.- Patient is instructed to restrict his carbohydra jacquelyn (less than 45 g per meal and less than 15-20 g per snack). Reinforced importance of carbohydra te restrictio n and dietary discretion . - Monitor blood glucose at least 4 times per day before meals and before bedtime and any time he feels low. Blood glucose goals reviewed (i.e. fasting 80-130, post-prand ial <180, and hypoglycem ia <70). Patient advised to call our office if recurrent hypoglycem ia. - Dietitian referral: Previously referred; MNT 2017; - Encouraged to be active (30 minutes of moderate intensity exercise i.e. walking 5 times weekly). Weight loss will help with insulin sensitizat ion. - Hypoglycem ia symptoms explained and treatment for this reviewed.* * Risk reviewed with pt. - Patient is up to date on foot exam. - Patient is up to date on eye exam. (Dr. Flowers) - Patient is up to date on urine testing for microalbum in. (ARB); Orders placed. - Patient verbalized understand ing of treatment plan. All questions answered. -Last labs on 02/09/21 BUN 11 Creatinine 0.60 GFR 135 AST 26 ALT 19 MACR positive (249) 07/16/20 Hyperlipidemia 24670142 E78.5 Goal LDL is under 100 mg/dl. Last LDL: 75 on 08/12/20Tri glycerides : 235Pt discontinu ed pravastati n d/t rash. Has upcoming appt with PCP to discuss alternativ es.Continu e dietary changes as recommende d. Essential hypertension 70014641 I10 Goal B.P is less than 140/90 mmHg. Continue current anti-hyper tensive medication s as appropriat e per patient s PCP. Renal diso rder due to type 2 diabetes mellitus 649888500 E11.22 MACR positive (249) on 07/16/20. Continue losartan therapy as ordered. [id number] MIQUEL HERRMANN MD [facility] [address] [place] [address] 10/26/2021 12:55:48 10/26/2021 13:43:55 Adult health examination 404409364 Z00.00 Hypertensive disorder 38 844673 I10 Hypertensi on is controlled . Continue current medication s Hyperlipidemia 65110897 E78.5 Consider Zetia if his LDL remains elevated since he had rash with pravastati n. Chronic depression 86126 0009 F34.1 Stable. Continue fluoxetine Chronic ob structive pulmonary disease 47208160 J44.9 [facility]. Diabetic p eripheral neuropathy 939555489 E11.40 Patient has signed CSA and SILVINO is appropriat e. Stable. Continue gabapentin Body mass index 40+ - severely obese 468837798 Z68.42 Continue weight loss efforts. Bilateral rotator cuff tendinitis 2506563807 8443498 M67.813 Continue plan per orthopedis t Decreased hearing 855048 001 H91.90 Arrange audiology referral Screening for malignant neoplasm of prostate 788068684 Z12.5 Patient will share PSA results with Dr. Leung Chronic low back pain 27 1118432 M54.50 Tylenol as directed for discomfort . Heat and ice to area. Lower urin terence tract symptoms due to benign prostatic hypertrophy 4602138709 9101 N40.1 Continue tamsulosin and keep follow-up next week with Dr. Leung [id number] JERRY ROSENTHAL APRN ENDOCRINO LOGY [address] [place] [address] 04/21/2022 13:09:02 04/21/2022 14:14:22 Multiple complications due to type 2 diabetes mellitus 736568823 E11.8 Diabetes mellitus Type 2, uncontroll ed. A 1c in office today of 7.6%, down from 9.2%, 10/09/21. G oal A1C by ADA criteria is less than 7%. Random blood glucose 267. Recommenda tions: -Congratul ated pt on favian t in A1c! unable to connect to dexcom in office today. Connection code and instructio ns provided. Pt will notify us once he is connected. Agreed on the following: -Adjust humulin R U-500. Inject 60-70u before breakfast, 60-70u before dinner. Take this insulin 20-30min before the meal.-Furt her recommenda tions once dexcom readings reviewed.- Patient is instructed to restrict his carbohydra jacquelyn (less than 45 g per meal and less than 15-20 g per snack). Reinforced importance of carbohydra te restrictio n and dietary discretion . - Monitor blood glucose at least 4 times per day before meals and before bedtime and any time he feels low. Blood glucose goals reviewed (i.e. fasting 80-130, post-prand ial <180, and hypoglycem ia <70). Patient advised to call our office if recurrent hypoglycem ia. - Dietitian referral: Previously referred; MNT 2017; - Encouraged to be active (30 minutes of moderate intensity exercise i.e. walking 5 times weekly). Weight loss will help with insulin sensitizat ion. - Hypoglycem ia symptoms explained and treatment for this reviewed.* * Risk reviewed with pt. - Patient is up to date on foot exam. - Patient is up to date on eye exam. (Dr. Flowers) - Patient is up to date on urine testing for microalbum in. (ARB); Orders placed. - Patient verbalized understand ing of treatment plan. All questions answered. -Last labs on 04/28/21 BUN 20 Creatinine 0.81 GFR 92 AST 20 ALT 21 MACR positive (249) 07/16/20 Hyperlipidemia 79032057 E78.5 Goal LDL is under 100 mg/dl. Last LDL: 75 on 08/12/20Tri glycerides : 235Pt discontinu ed pravastati n d/t rash. Has upcoming appt with PCP to discuss alternativ es.Continu e dietary changes as recommende d. Essential hypertension 91994732 I10 Goal B.P is less than 140/90 mmHg. Continue current anti-hyper tensive medication s as appropriat e per patient s PCP. Renal diso rder due to type 2 diabetes mellitus 318173804 E11.22 MACR positive (249) on 07/16/20. Continue losartan therapy as ordered. [id number] MIQUEL HERRMANN MD [facility] [address] [place] [address] 05/11/2022 14:35:47 05/11/2022 15:10:55 Hypertensive disorder 86416764 I10 Hypertensi on is controlled . Continue current medication s Hyperlipidemia 71170745 E78.5 Discontinu e Zetia. Patient would like to restart pravastati n. He thought it was causing a rash but he does have venous stasis dermatitis which did not change after he went off pravastati n. Chronic depression 72602 0009 F34.1 Stable. Continue fluoxetine Chronic ob structive pulmonary disease 23853353 J44.9 Stable. Continue active management per [place] pulmonolog [facility]. Diabetic p eripheral neuropathy 788520600 E11.40 Patient has signed CSA and SILVINO is appropriat e. Stable. Continue gabapentin Body mass index 40+ - severely obese 027650275 Z68.42 Continue weight loss efforts. Chronic low back pain 27 1445617 M54.50 Stable. Continue Tylenol as directed Lower urin terence tract symptoms due to benign prostatic hypertrophy 6500591568 9101 N40.1 [address]able. Continue t[address] Leung Lichen scl erosus of penis 005510629 N48.0 Continue current treatment and follow-up with urologist [id number] MIQUEL HERRMANN MD [facility] [address] [address] 06/08/2022 15:20:43 06/08/2022 15:47:[address] segment elevation myocardial infarction 6487726433 27080 Z86.79 Stable. Continue Brilinta, bisoprolol and active management per his cardiologi st, Dr. Sofia. He is doing remarkably well after his recent MN. Normal grief reaction 27 5053081 F43.20 I expressed my condolence s to Mr. Allen and his daughter on the of his mother-in- law. 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 A 1c in office today of 7.9%, up from 7.6%, 04/21/22. G oal A1C by ADA criteria is less than [...] readings reviewed.- Patient is instructed to restrict his carbohydra jacquelyn (less than 45 g per meal and less than 15-20 g per snack). Reinforced importance of carbohydra te restrictio n and dietary discretion . - Monitor blood glucose at least 4 times per day before meals and before bedtime and any time he feels low. Blood glucose goals reviewed (i.e. fasting 80-130, post-prand ial <180, and hypoglycem ia <70). Patient advised to call our office if recurrent hypoglycem ia. - Dietitian referral: Previously referred; MNT 2017; - Encouraged to be active (30 minutes of moderate intensity exercise i.e. walking 5 times weekly). Weight loss will help with insulin sensitizat ion. - Hypoglycem ia symptoms explained and treatment for this reviewed.* * Risk reviewed with pt. - Patient is up to date on foot exam. - Patient is up to date on eye exam. (Dr. Flowers) - Patient is up to date on urine testing for microalbum in. (ARB); Orders placed. - Patient verbalized understand ing of treatment plan. All questions answered. -Last labs on 05/11/22 BUN 19 Creatinine 1.19 GFR 66 AST 18 ALT 20 MACR positive (303) Hyperlipidemia 81190697 E78.5 Goal LDL is under 100 mg/dl. Last LDL: 131 on 05/11/22Tr iglyceride s: 243Continu e atorvastat in per PCP/ cardiology .Continue dietary changes as recommende d. Essential hypertension 07970539 I10 Goal B.P is less than 140/90 mmHg. Continue current anti-hyper tensive medication s as appropriat e per patient s PCP. Renal diso rder due to type 2 diabetes mellitus 980082180 E11.22 MACR positive (303) on 04/21/22 Continue losartan therapy as ordered. [id number] YANNI COBIAN PA-C FAMILY [address] [place] [address] 09/06/2022 14:05:42 09/06/2022 14:47:23 Acute left otitis media 619089273 H66.92 ? perforatio n. Patient to finish out his antibiotic s both oral and drops. Avoid Q-tips. ENT referral [id number] CELIA MONGE PA-C [address] [place] [address] 09/09/2022 09:40:11 09/09/2022 10:35:18 Neck pain 42238313 M54.2 Flareup of neck pain about 1 [...] not improving with physical therapy. Cervical radiculopathy 25469958 M54.12 Left cervical radiculopa thy. If patient [...] persists, he will need further imaging studies. [id number] EZEKIEL TY PA-C DERMATOLO [facility]Y [address] [place] [address] 10/26/2022 11:07:27 10/26/2022 11:36:24 Patient advised about exposure to the sun 691043783 Z71.89 Counseled on sun protective clothing/h ats and daily UV protection with otc broad-spec trum SPF 30+ on exposed areas. Regular self-skin exams recommende d. Pt encouraged to RTC with any new/changi ng lesions. Lentiginosis 051306212 L 81.4 Benign reassuranc e Raised loly orrheic keratosis 0501332578 19339 L82.1 Benign reassuranc e Sebaceous hyperplasia 23 1183978 L21.8 Benign reassuranc e Hemangioma 778936578 D18 .00 Benign reassuranc e Neurofibroma 498380368 D 36.10 Benign reassuranc eAsx [id number] MICHEAL HILARIO MD [place] [facility] [address] [facility] [address] [place] [address] 10/28/2022 15:31:17 10/28/2022 16:45:31 Blood in ear canal 350806008 H92.23 10/28/22- Normal otoscopic appearance s. Both TM's intact. Deviated nasal septum 12 0091145 J34.2 -To the right. Coronary arteriosclerosis 88036509 I25.10 Moderate p ersistent asthma 737235833 J45.40 Type 1 katie betes mellitus 12073035 Z79.4 [id number] MIQUEL HERRMANN MD [facility] [address] [place] [address] 11/08/2022 13:53:32 11/08/2022 15:29:43 Adult health examination 190740076 Z00.00 Screening for malignant neoplasm of colon 803843815 Z12.11 Colonoscop y 09/04/19 revealed diverticul osis. Repeat in 2030. Screening for malignant neoplasm of prostate 342974036 Z12.5 Patient will share PSA results with Dr. Leung Hepatitis C screening 41 9408162 Z11.59 Has patient ever had Hep C screening? YES Hypertensive disorder 38 415346 I10 Hypertensi on is controlled . Continue valsartan/ HCTZ. Hyperlipidemia 87386407 E78.5 Discontinu e Zetia. Patient would like to restart pravastati n. He thought it was causing a rash but he does have venous stasis dermatitis which did not change after he went off pravastati n. Chronic ob structive pulmonary disease 24490810 J44.9 Stable. Continue [facility]. Diabetic p eripheral neuropathy 599904988 E11.40 Patient has signed CSA and SILVINO is appropriat e. Stable. Continue gabapentin Body mass index 40+ - severely obese 153850566 Z68.42 Continue weight loss efforts. Chronic low back pain 27 0604362 M54.50 Stable. Continue Tylenol as directed Lower urin terence tract symptoms due to benign prostatic hypertrophy 2008292335 9101 N40.1 [address]able. Continue t[address] Leung Lichen scl erosus of penis 042414677 N48.0 Continue current treatment and follow-up with urologist Recurrent major depression 36220336 F33.9 Stable. Continue fluoxetine Morbid obesity 419269503 E66.01 Continue weight loss efforts. Fatigue 77246163 R53.83 I explained that fatigue is multifacto rial and he has several reasons to feel fatigued including morbid obesity, being sedentary, COPD and uncontroll ed diabetes. He also has depression which can contribute . Coronary arteriosclerosis 56150291 I25.10 Stable. Continue active management per cardiologi st [id number] JERRY ROSENTHAL APRN ENDOCRINO [facility]Y [address] [place] [address] 12/22/2022 14:17:24 12/22/2022 15:13:00 Multiple complications due to type 2 diabetes mellitus 060859661 E11.8 A 1c in office today of 8.7%, up from 7.9%, 08/18/22. G oal A1C by ADA criteria is less than 7%. Random blood glucose 180. Recommenda tions: -Unable to connect to dexcom again in office today. Connection code and instructio ns provided. We will have the dexcom sports trainer reach out to him. Pt will notify us once he is connected. Discussed potential treatment options. He is interested in insulin pump. [facility] with [facility]. We will send PA for tandem tslim. Agreed on the following: -Increase humulin R U-500. Inject 75u before breakfast, 75u before dinner, and up to 40*u at bedtime. Take this insulin 20-30min before the meal.-Furt her recommenda tions once dexcom readings reviewed.- Patient is instructed to restrict his carbohydra jacquelyn (less than 45 g per meal and less than 15-20 g per snack). Reinforced importance of carbohydra te restrictio n and dietary discretion . - Monitor blood glucose at least 4 times per day before meals and before bedtime and any time he feels low. Blood glucose goals reviewed (i.e. fasting 80-130, post-prand ial <180, and hypoglycem ia <70). Patient advised to call our office if recurrent hypoglycem ia. - Dietitian referral: Previously referred; MNT 2016; - Encouraged to be active (30 minutes of moderate intensity exercise i.e. walking 5 times weekly). Weight loss will help with insulin sensitizat ion. - Hypoglycem ia symptoms explained and treatment for this reviewed.* * Risk reviewed with pt. - Patient is up to date on foot exam. - Patient is up to date on eye exam. (Dr. Flowers) - Patient is up to date on urine testing for microalbum in. (ARB); Orders placed. - Patient verbalized understand ing of treatment plan. All questions answered. -Last labs on 11/08/22 BUN 20 Creatinine 1.17 GFR 68 AST 19 ALT 19TSH 1.320MACR positive (303) Hyperlipidemia 73232864 E78.5 Goal LDL is under 100 mg/dl. Last LDL: 38 on 11/08/22Tri glycerides : 105Continu e atorvastat in per PCP/ cardiology .Continue dietary changes as recommende d. Essential hypertension 84145637 I10 Goal B.P is less than 140/90 mmHg. Continue current anti-hyper tensive medication s as appropriat e per patient s PCP. Renal diso rder due to type 2 diabetes mellitus 202737813 E11.22 MACR positive (303) on 04/21/22 Continue losartan therapy as ordered. [id number] JERRY ROSENTHAL APRN ENDOCRINO [facility] [address] [place] [address] 03/02/2023 12:41:53 03/02/2023 14:49:00 Multiple complications due to type 2 diabetes mellitus 489330582 E11.8 A 1c in office today of 8.3%, down from 8.7%, 12/22/22. G oal A1C by ADA criteria is less than [...] temporary. - Patient is instructed to restrict his carbohydra jacquelyn (less than 45 g per meal and less than 15-20 g per snack). Reinforced importance of carbohydra te restrictio n and dietary discretion . - Monitor blood glucose at least 4 times per day before meals and before bedtime and any time he feels low. Blood glucose goals reviewed (i.e. fasting 80-130, post-prand ial <180, and hypoglycem ia <70). Patient advised to call our office if recurrent hypoglycem ia. - Dietitian referral: Previously referred; [facility] 2017; - Encouraged to be active (30 minutes of moderate intensity exercise i.e. walking 5 times weekly). Weight loss will help with insulin sensitizat ion. - Hypoglycem ia symptoms explained and treatment for this reviewed.* * Risk reviewed with pt. - Patient is up to date on foot exam. - Patient is up to date on eye exam. (Dr. Flowers) - Patient is up to date on urine testing for microalbum in. (ARB); Orders placed. - Patient verbalized understand ing of treatment plan. All questions answered. -Last labs on 11/08/22 BUN 20 Creatinine 1.17 GFR 68 AST 19 ALT 19TSH 1.320MACR positive (303) Hyperlipidemia 59884420 E78.5 Goal LDL is under 100 mg/dl. Last LDL: 38 on 11/08/22Tri glycerides : 105Continu e atorvastat in per PCP/ cardiology .Continue dietary changes as recommende d. Essential hypertension 09601018 I10 Goal B.P is less than 140/90 mmHg.Jose Angel nue current anti-hyper tensive medication s as appropriat e per patient s PCP. Renal diso rder due to type 2 diabetes mellitus 098654683 E11.22 MACR positive (303) on 04/21/22 Continue losartan therapy as ordered. [id number] TONYA BOLAND MD OPHTHALMO [facility] [address] ,[address] [place] [address] 03/01/2023 12:25:20 03/01/2023 13:39:55 Blepharitis 69548224 H01.00A H01.00B - discussed likely allergic etiology- Pataday, ATs, lid scrubs daily- start TobraDex TID for up to 2 weeks, then stop RTC as planned with Dr. Stoll, sooner as needed [id number] JERRY ROSENTHAL APRN ENDOCRINO [facility] [address] [place] [address] 08/02/2023 10:57:43 08/02/2023 13:41:57 Multiple complications due to type 2 diabetes mellitus 715736473 E11.8 A 1c in office today of 7.3%, from 8.3%, 03/02/23. G oal A1C by ADA criteria is less than 7%. Random blood glucose 310. Recommenda tions:-Con tinous glucose monitor downloaded . Reports reviewed and discussed with patient.-Jacob gracegrmeryl ed pt on improvemen t in A1c! Agreed on the following: -Continue humulin R U-500. Inject 70u before breakfast, 70u before dinner. Take this insulin 20-30min before the meal.-Incr ease ozempic. Inject 1mg once weekly. - Patient is instructed to restrict his carbohydra jacquelyn (less than 45 g per meal and less than 15-20 g per snack). Reinforced importance of carbohydra te restrictio n and dietary discretion . - Monitor blood glucose at least 4 times per day before meals and before bedtime and any time he feels low. Blood glucose goals reviewed (i.e. fasting 80-130, post-prand ial <180, and hypoglycem ia <70). Patient advised to call our office if recurrent hypoglycem ia. - Dietitian referral: Previously referred; [facility] 2017; - Encouraged to be active (30 minutes of moderate intensity exercise i.e. walking 5 times weekly). Weight loss will help with insulin sensitizat ion. - Hypoglycem ia symptoms explained and treatment for this reviewed.* * Risk reviewed with pt. - Patient is up to date on foot exam. - Patient is up to date on eye exam. (Dr. Flowers) - Patient is up to date on urine testing for microalbum in. (ARB); Orders placed. - Patient verbalized understand ing of treatment plan. All questions answered. -Last labs on 02/20/23 BUN 20 Creatinine 1.00 GFR 74 AST 35 ALT 34TSH 1.320MACR positive (303) Hyperlipidemia 50106667 E78.5 Goal LDL is under 100 mg/dl. Last LDL: 38 on 11/08/22Tri glycerides : 105Continu e atorvastat in per PCP/ cardiology .Continue dietary changes as recommende d. Essential hypertension 12986499 I10 Goal B.P is less than 140/90 mmHg.Jose Angel nue current anti-hyper tensive medication s as appropriat e per patient s PCP. Renal diso rder due to type 2 diabetes mellitus 066842195 E11.22 MACR positive (303) on 04/21/22 Continue losartan therapy as ordered. [id number] JERRY ROSENTHAL APRN ENDOCRINO [facility]Y [address] [place] [address] 11/30/2023 15:03:26 12/01/2023 08:13:13 Multiple complications due to type 2 diabetes mellitus 916430593 E11.8 A 1c in office today of 6.9%, from 7.3%, 08/02/23. G oal A1C by ADA criteria is less than [...] weekly. - Patient is instructed to restrict his carbohydra jacquelyn (less than 45 g per meal and less than 15-20 g per snack). Reinforced importance of carbohydra te restrictio n and dietary discretion . - Monitor blood glucose at least 4 times per day before meals and before bedtime and any time he feels low. Blood glucose goals reviewed (i.e. fasting 80-130, post-prand ial <180, and hypoglycem ia <70). Patient advised to call our office if recurrent hypoglycem ia. - Dietitian referral: Previously referred; [facility] 2017; - Encouraged to be active (30 minutes of moderate intensity exercise i.e. walking 5 times weekly). Weight loss will help with insulin sensitizat ion. - Hypoglycem ia symptoms explained and treatment for this reviewed.* * Risk reviewed with pt. - Patient is up to date on foot exam. - Patient is up to date on eye exam. (Dr. Flowers) - Patient is up to date on urine testing for microalbum in. (ARB); Orders placed. - Patient verbalized understand ing of treatment plan. All questions answered. -Last labs on 02/20/23 BUN 20 Creatinine 1.00 GFR 74 AST 35 ALT 34TSH 1.320MACR positive (303) Hyperlipidemia 79398393 E78.5 Goal LDL is under 100 mg/dl. Last LDL: 38 on 11/08/22Tri glycerides : 105Continu e atorvastat in per PCP/ cardiology .Continue dietary changes as recommende d. Essential hypertension 15179963 I10 Goal B.P is less than 140/90 mmHg.Jose Angel nue current anti-hyper tensive medication s as appropriat e per patient s PCP. 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 [id number] ELIZABETH CERNA DO DERMATOLO [facility] [address] [place] [address] 03/08/2024 09:50:16 03/08/2024 11:06:10 Lentiginosis 620789800 L81.4 Benign reassuranc e recommende d sun protective clothing and a mineral based sunscreen 30 SPF or higher lotion OTC daily Raised loly orrheic keratosis 9037549780 08248 L82.1 Benign reassuranc e Sebaceous hyperplasia 23 3640612 L21.8 Benign reassuranc e Hemangioma 112230864 D18 .00 Benign reassuranc e Neurofibroma 004806258 D 36.10 Benign reassuranc ept stated spot was bothersome discussed removal today pt declined and will re-evaluat e at next visit. Senile purpura 16774499 D69.2 Benign Reassuranc e Inflamed s eborrheic keratosis 263645093 L82.[address] per patients request: Education then treated with LN; right upper cheek x1, left sikhism [id number], bothersome LN at pt requestpt tolerated well advised pt what to expect with freezing [id number] MIQUEL STOLL MD [facility]TH[facility] [address] [place] [address] 03/08/2024 10:58:06 03/08/2024 14:50:23 Type 2 diabetes mellitus without complication 546151007 E11.9 no retinopath y ou - (previousl [...] changing/f luxuating vision.1 year and pnr Pseudophakia 66531609 Z9 6.1 stable, obs [id number] MD ALBER BARNHART ENT [address] [place] [address] 06/18/2024 14:08:31 06/18/2024 16:06:41 Deviated nasal septum 118029911 J34.2 Coronary arteriosclerosis 53423520 I25.10 Moderate p ersistent asthma 077237091 J45.40 Type 1 katie betes mellitus 96526087 Z79.4 Laryngopha ryngeal reflux 809962675 K21.9 on a regimen of Pantoprazo le Chronic hoarseness 29234 43769 105 R49.0 06/18/24 Laryngeal Fiberoptic exam = Slight presbylary nx, glottic closure is not tight; no evidence of vocal nodules or polyps and certainly no evidence of neoplasia 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 Random blood glucose 199. Recommenda tions: -Congratul ated pt on maintainin g goal A1c! Agreed on the following for now: -Continue humulin R U-500. Inject 40u in the AM and 30u before dinner. Take this insulin 20-30min before the meal.-Cont inue ozempic. Inject 2mg once weekly. - Patient is instructed to restrict his carbohydra jacquelyn (less than 45 g per meal and less than 15-20 g per snack). Reinforced importance of carbohydra te restrictio n and dietary discretion . - Monitor blood glucose at least 4 times per day before meals and before bedtime and any time he feels low. Blood glucose goals reviewed (i.e. fasting 80-130, post-prand ial <180, and hypoglycem ia <70). Patient advised to call our office if recurrent hypoglycem ia. - Dietitian referral: Previously referred; [facility] 2017; - Encouraged to be active (30 minutes of moderate intensity exercise i.e. walking 5 times weekly). Weight loss will help with insulin sensitizat ion. - Hypoglycem ia symptoms explained and treatment for this reviewed.* * Risk reviewed with pt. - Patient is up to date on foot exam. - Patient is up to date on eye exam. (Dr. Flowers) - Patient needs urine testing for microalbum in. (ARB); Orders placed. - Patient verbalized understand ing of treatment plan. All questions answered. -Last labs on 02/20/23- repeat labs as ordered today BUN 20 Creatinine 1.00 GFR 74 AST 35 ALT 34TSH 1.320MACR positive (303) Hyperlipidemia 27536313 E78.5 Goal LDL is under 100 mg/dl. Last LDL: 38 on 11/08/22Tri glycerides : 105Continu e atorvastat in per PCP/ cardiology .Continue dietary changes as recommende d. Essential hypertension 47530010 I10 Goal B.P is less than 140/90 mmHg.Jose Angel nue current anti-hyper tensive medication s as appropriat e per patient s PCP. Renal diso rder due to type 2 diabetes mellitus 076603900 E11.22 MACR positive (303) on 04/21/22 Continue losartan therapy as ordered. Health Concerns Section Related Observation LastModified by Organization Detai ls LastModified Time None Recorded Concern Status LastModified by Organization Details LastModified Time None Recorded Advance Directives Directive N: Payers Insurance Date Sequence Insurance Name Policy Number Policy Lockett Covered Member ID Lockett Member ID Guarantor Name 08/22/2024 2 [place] - [employer] [employer] 111 Miquel Allen [id number] Miquel Allen 08/31/2018 1 *SELF PAY* Geri Allen 08/22/2024 1 [place] Miquel Allen [id number] Miquel Allen 07/21/2020 PAYMENT PLAN Miquel Allen Notes Date Note Type Note [...] connect (again)Avg. 201SD 42TIR 31%Hypo 0% Duration: chronic Compliance: compliant with medications; compliant with follow-up [...] since last visit; Chronic Complications:Diab etic retinopathy: NoDiabetic neuropathy: YesDiabetic nephropathy: NoHypertension: YesHyperlipidemia: Yes JERRY ROSENTHAL, SETH [address] [place], [address], [facility] 11/30/2023 16:15:39 03/08/2024 text/html Established Patient Presents for skin checkPatient states he has a couple places on his scalp and neck he'd like evaluated., Pt said the places on his scalp does itch but otherwise not bothersome. check spots over body Denies any other new or changing lesions. Feels well today. Denies family history of malignant melanoma. ELIZABETH CERNA DO [address] [place], [address], [facility] 03/08/2024 17:02:41 06/18/2024 text/html Miquel reports that he has been hoarse for the past several months. He has been on a regimen of Pantoprazole right before bed for his acid reflux. Miquel takes Claritin daily. MICHEAL HILARIO MD [address] [place], [address], [facility] 06/18/2024 17:38:11 08/23/2024 text/html Mr. Allen is [...] sensors are on back order. Currently using [employer] meter. Hx: Needs another left shoulder [...] weekly Review finger sticks: unable to download [id number] avg. 221 Duration: chronic Compliance: compliant with medications; compliant with follow-up [...] since last visit; Chronic Complications:Diab etic retinopathy: NoDiabetic neuropathy: YesDiabetic nephropathy: NoHypertension: YesHyperlipidemia: Yes JERRY ROSENTHAL, SETH [address] [place], [address], [facility] 08/23/2024 12:18:59
--- OUTSIDE RECORDS SUMMARY | 2024-11-27 19:30 | XMS_ITS | Data Portability ---
Author Organization [place] - [facility] - [place] & SABINE Hernandez ADMIN Address [address] [place] [address] Care Team Providers Care Public Safety Officer Name Role Phone MONTEZMIQUEL Primary Care Provider Assessment Encounter Date Assessment Date Assessment LastModified by Organization Details LastModified Time 05/19/2022 05/19/2022 Patient may continue to use the topical preparation which seems to be helping him. He should avoid overly aggressive hygiene beneath the foreskin since this could irritate or even potentially injure the glans. Normal external hygiene recommended. He has a consultation pending at the [facility] with focus on best approach toward management and potential for any reconstructive options that might be available. [email or web address] Not available 05/19/2022 17:43:06 12/01/2022 12/01/2022 I [...] would benefit him and his other providers. [email or web address] Not available 12/01/2022 15:21:38 Plan of Treatment Reminders Order Date Submit Date Provider Last Modified By Organization Details Last Modified Time Details Appointments None recorded. Lab None recorded. Referral None recorded. Procedures None recorded. Surgeries None recorded. Imaging None recorded. Medication Orders nystatin- triamcino lone 100,000 unit/g-0. 1 % topical cream ASA Rao [facility], [address] [address] [place], [place], [id number], 16:10:25 Patient TargetsNo targets recorded. Patient InstructionsNo instructions recorded. Reason for Referral None Reported. 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 Medical Equipment None Reported. Allergies Allergen ID Allergen Name Allergen Category Reaction Reaction Severity Criticality Documentation Date Start Date Code Code System Note Provider Name and Address Organization Details Recorded Time 57018 Non-stero idal anti-infl ammatory agent (product) medicatio n Not available Not available Not available 05/07/2022 70212 005 SNOMED Lillie Eulaliose null, ALBER - [facility] - [facility] & [place] 10:10:51 35124 Substance with sulfonami de structure and antibacte rial mechanism of action (substanc e) medicatio n Not available Not available Not available 05/07/2022 81840 8003 SNOMED Lillieangelica Tsaise null, ALBER - [facility] - [facility] & [place] 10:10:59 76775 aspirin medicatio n Not available Not available Not available 05/07/2022 1191 RxNorm ALBER Arzola [facility] & [place] 2 10:11:13 03053 Product containin g 3-hydroxy -3-methyl glutaryl- coenzyme A reductase inhibitor (product) medicatio n Not available Not available Not available 05/07/2022 08402 009 SNOMED ALBER Arzola LPCLARK [facility] & [place] 2 10:11:21 Medications Name Sig Start Date [...] Updated DateTime 12/01/2022 175.26 cm 50.4 kg/m2 065526 g 120 mm[Hg] 80 mm[Hg] Madelin Clemons [facility] & [place] 3 15:10:33 Date Recorded Body height Body mass index (BMI) Body weight Body temperature Systolic blood pressure Diastolic blood pressure Provider Name and Address Organization Details Last Updated DateTime 2 175.26 cm 48 kg/m2 762358. 24 g 97.7 [degF] 130 mm[Hg] 68 mm[Hg] Sobeida Martinez, CERTIFIED ADAPTED PHYSICAL EDUCATOR, [address] [facility], [place], [address], [facility] & [place] 2 15:53:33 Social History Question Answer Notes LastModified by Organizat ion Details LastModified Time Tobacco Smoking Status Former Smoker Lillie Eulalio null, [facility] & [place] 05/07/2022 10:13:15 When Did You Quit Smoking? 11-15yearssi [email or web address] ette Information not available 05/07/2022 Sex: Male Functional Status Question Answer Note LastModified by Organizat ion Details LastModified Time Do you use any illicit or recreational drugs? No Information not available 05/07/2022 What is your level of alcohol consumption? None Information not available 05/07/2022 Mental Status None recorded. Family History Nothing Reported Notes:Mother-cancer( 0 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 Condition Response Diabetes Y Hyperlipidemia Y Depression Y Past Encounters Encounter ID Performer Location Encounter Start Date Encounter Closed Date Diagnosis/Indication Diagnosis SNOMED-CT Code Diagnosis ICD10 Code Diagnosis Note [id number] Fritz Leung MD [facility]rology [address] [place] [address],[facility] [address] [place] [address] 05/19/2022 15:31:19 05/19/2022 16:06:47 Phimosis 807126302 N47.1 Balanitis xerotica obliterans 514215103 N48.0 Lichen sclerosus 5156717 01 L90.0 Penile History of diabetes mellitus type 2 799918302 Z86.39 poorly controlled Morbid obesity 422830238 E66.01 [id number] Fritz Leung MD [facility] Urology [facility] [address] [place] [address] 12/01/2022 14:56:56 12/01/2022 15:17:36 Balanitis xerotica obliterans 034134029 N48.0 Lichen sclerosus 2874465 01 L90.0 Penile Phimosis 362642392 N47.1 Morbid obesity 393065256 E66.01 Type 2 katie betes mellitus 64112127 Z79.4 Health Concerns Section Related Observation LastModified by Organization Detai ls LastModified Time None Recorded Concern Status LastModified by Organization Details LastModified Time None Recorded Advance Directives Directive None Recorded Payers Insurance Date Sequence Insurance Name Policy Number Policy Lockett Covered Member ID Lockett Member ID Guarantor Name 11/28/2022 1 [place]ARE[place] Miquel Allen [id number] 3 Miquel Allen 11/28/2022 2 [place] OF [place] - [employer] 111 Miquel Allen [id number] Miquel Allen Notes Date Note Type Note [...] trouble retracting the foreskin.} Fritz Leung MD [address] [facility], [place], [address], [facility] - [facility] & [place] 05/19/2022 17:43:30 12/01/2022 text/html the patient retu [...] tells me that Dr. Monteiro at the [facility] is planning on performing circumcision sometime [...] trouble retracting the foreskin.} Fritz Leung MD [address], [place], [address], [facility] [place] & [place] 12/01/2022 15:21:58
--- NOTE | 2024-11-27 19:32 | CT_ITS ---
PROCEDURE INFORMATION: Exam: CTA Chest With Contrast Exam date and time: 11/27/2024 8:15 PM Age: 69 years old Clinical indication: Pain; Chest pressure; Additional info: Chest pain TECHNIQUE: Imaging protocol: Computed tomographic angiography of the chest with contrast. Exam focused on the arteries. 3D rendering (Not supervised by radiologist): MIP and/or 3D reconstructed images were created by the technologist. Radiation optimization: All CT scans at this facility use at least one of these dose optimization techniques: automated exposure control; mA and/or kV adjustment per patient size (includes targeted exams where dose is matched to clinical indication); or iterative reconstruction. Contrast material: ISOVUE; Contrast volume: 80 ml; Contrast route: INTRAVENOUS (IV); COMPARISON: CT ANGIO CHEST PE PROTOCOL 05/28/2024 9:48 PM FINDINGS: Pulmonary arteries: No central or segmental pulmonary arterial intraluminal filling defects identified. Aorta: Unremarkable. No aortic aneurysm. No aortic dissection. Lungs: Bilateral perihilar ground-glass opacities. Right upper lobar benign calcified granuloma. Pleural spaces: Unremarkable. No pneumothorax. No pleural effusion. Heart: Unremarkable. No cardiomegaly. No pericardial effusion. Coronary arteries: Atherosclerotic calcification of left anterior descending coronary artery. Lymph nodes: Unremarkable. No enlarged lymph nodes. Bones/joints: Unremarkable. No acute fracture. Soft tissues: Unremarkable. IMPRESSION: 1. No central or segmental pulmonary arterial embolism identified. 2. Perihilar ground-glass opacity. Query symptoms of mild CHF/pulmonary edema.
--- NOTE | 2024-11-27 19:38 | ED_ITS ---
Discharge Plan Disposition Patient Disposition: Home, Self-Care Condition: Good Prescriptions Prescriptions: No Action tamsulosin 0.4 mg capsule 0.4 mg PO DAILY albuterol sulfate 90 mcg/actuation HFA aerosol inhaler 2 puff IH Q6HP PRN (Reason: shortness of breath) Humulin R U-500 (Conc) Kwikpen 500 unit/mL (3 mL) insulin pen 70 unit SQ QACBREAK Rx Instructions: 50 units in PM azithromycin 250 mg tablet See Rx Instructions PO .COMPLEX Qty: 6 0RF Rx Instructions: For 250 mg dose pack: take 500 mg today (day 1), then 250 mg for 4 days (days 2-5) PO benzonatate 100 mg capsule 100 mg PO TID PRN (Reason: cough) Qty: 30 0RF guaifenesin [Mucinex] 1,200 mg tablet extended release 12hr 1,200 mg PO BID Qty: 20 0RF Brilinta 90 mg tablet 90 mg PO BID Qty: 60 11RF losartan 100 mg tablet See Rx Instructions .ROUTE .COMPLEX Qty: 90 1RF Dose Instruction: TAKE ONE TABLET BY MOUTH ONCE A DAY Rx Instructions: TAKE ONE TABLET BY MOUTH ONCE A DAY bisoprolol fumarate 5 mg tablet See Rx Instructions .ROUTE .COMPLEX Qty: 30 2RF Dose Instruction: TAKE 1 TABLET BY MOUTH ONCE A DAY Rx Instructions: TAKE 1 TABLET BY MOUTH ONCE A DAY gabapentin 600 MG tablet 1,200 mg PO TID Patient Comments: TAKE 2 TABLETS BY MOUTH THREE TIMES DAILY fluoxetine 20 mg capsule 40 mg PO DAILY pantoprazole 40 mg tablet,delayed release (DR/EC) 40 mg PO DAILY PRN (Reason: GERD) duloxetine 20 mg capsule,delayed release(DR/EC) 20 mg PO DAILY Asmanex HFA 200 mcg/actuation Hfa Aerosol Inhaler 2 puff INHALATION BID Stiolto Respimat 2.5-2.5 mcg/actuation Mist 2 puff INHALATION DAILY aspirin 81 mg Tablet,Delayed Release (Dr/Ec) 81 mg PO DAILY Qty: 30 0RF atorvastatin 40 mg Tablet 40 mg PO HS Qty: 30 0RF amlodipine 10 mg tablet 10 mg PO DAILY PRN (Reason: Hypertension) Referrals Follow up/Referrals: Provider,Referral, MD [Referring, Medical] - See instructions Activity Restrictions/Add. Instructions Additional Instructions/Restrictions: Follow-up with your steeping press operator as scheduled. Take Pepcid daily. Return if any return of chest pain, or shortness of breath or become concerned for your health. Follow-up with your PCP regarding the slight pulmonary congestion on your CT scan which could be metals sales representative of early heart failure. Clinical Impressions Clinical Impression: COPD (chronic obstructive pulmonary disease) HTN (hypertension) Qualifiers: Hypertension type: unspecified Qualified Code(s): I10 - Essential (primary) hypertension Instructions Patient Instructions: Chronic Obstructive Pulmonary Disease, DI for Atypical Chest Pain Print Language Print Language: Khmer Discharge ED Provider: Jose Grajeda HPI <April Le (ED), IRRIGATION WORKER - Last Filed: 11/27/24 21:51> General Chief Complaint: Chest Pain Stated Complaint: Chest Pain Time Seen by Provider: 11/27/24 19:22 Mode of Arrival: Ambulatory Source of Information: Patient Description of Symptoms (Recalled from ER Triage Doc. by RN): pt presents to the Ed d/t chest pain starting at 0500 this am, pt states it woke him up and he wanted to see if it would go away. pt is alert. pt reports 2/10 pain. pt has hx of aortic aneursym and goes to [facility] for cardiology. pt also had hx of heart attack two years ago per family. History of Present Illness HPI narrative: This is a 69-year-old male who presents to the ED today for complaint of chest pain that started at 5 AM. Patient states that it woke him up this morning but the pain kept getting start up specialist and start up specialist all day. He does have history of aortic aneurysm so this concerned him all day. He does have a steeping press operator at [facility] but he has seen Dr. Sofia approximately 3 years ago where he had an CT and Kimberlyn placed 3 stents. Patient also has history of diabetes that he takes insulin for, asthma where he did a walking test and failed it and he is waiting on his oxygen to arrive to his home. He is not a smoker. He does take Plavix, gabapentin, antidepressants among other medications. Blood pressure today is 160/80 which is elevated for him. Related Data Home Medications ?Medication ?Instructions ?Recorded ?Confirmed gabapentin 600 mg tablet 1,200 mg PO TID NEUROPATHY 1 06/29/18 10/09/24 albuterol sulfate 90 mcg/actuation 2 puff inhalation Q 6HP PRN 01/28/22 10/09/24 aerosol inhaler shortness of breath tamsulosin 0.4 mg capsule 0.4 mg PO DAILY PROSTATE 05/1110/09/24 duloxetine 20 mg capsule,delayed 20 mg PO DAILY Depres florinda 05/29/22 10/09/24 release mometasone 200 mcg/actuation HFA 2 puff inhalation BID Breathing 05/30/22 10/09/24 aerosol inhaler (Asmanex HFA) problems tiotropium 2.5 mcg-olodaterol 2.5 2 puff inhalation DA ADAM soa 05/30/22 10/09/24 mcg/actuation mist for inhalation (Stiolto Respimat) amlodipine 10 mg tablet 10 mg PO DAILY PRN Hypertens ion 06/16/22 10/09/24 fluoxetine 20 mg capsule 40 mg PO DAILY Depression 10/09/24 insulin regular hum U-500 conc 500 70 unit SQ QACBREAK 06/16/22 10/09/24 unit/mL(3 mL) subcut pen (Humulin R U-500 (Conc) Insulin Kwikpen) pantoprazole 40 mg tablet,delayed 40 mg PO DAILY PRN G ERD 06/16/22 10/09/24 release Previous Rx's ?Medication ?Instructions ?Recorded aspirin 81 mg tablet,delayed 81 mg PO DAILY #30 tabs 1 08/01/21 release atorvastatin 40 mg tablet 40 mg PO HS #30 tabs 2 ticagrelor 90 mg tablet (Brilinta) 90 mg PO BID #60 ta bs 07/26/22 losartan 100 mg tablet See Rx Instructions .Route 0 09/22/22 .COMPLEX #90 tabs bisoprolol fumarate 5 mg tablet See Rx Instructions .R oute 06/28/23 .COMPLEX #30 tabs azithromycin 250 mg tablet See Rx Instructions PO .COM PLEX #6 10/09/24 tabs benzonatate 100 mg capsule 100 mg PO TID PRN cough #30 caps 10/09/24 guaifenesin 1,200 mg tablet, 1,200 mg PO BID #20 tabs 10/09/24 extended release 12 hr (Mucinex) Allergies Allergy/AdvReac Type Severity Reaction Status Date / Time aspirin (ASPIRIN) Allergy Severe Anaphylaxis Verified 10/09/24 15:18 NSAIDS (Non-Steroidal Allergy Severe Anaphylaxis Verified 10/09/24 15:18 Anti-Inflamma (NSAIDS (NON-STEROIDAL ANTI-INFLAMMA) Sulfa (Sulfonamide Allergy Intermediate Rash Verified 10/09/24 15:18 Antibiotics) (SULFA (SULFONAMIDE ANTIBIOTICS)) [facility] <April Le (ED), IRRIGATION WORKER - Last Filed: 11/27/24 21:51> [facility] Disclaimer: The information contained in this section may have been updated after the patient was seen, as this information can be updated by other users. 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 (Updated 11/27/24 @ 21:38 by April Le (ED), IRRIGATION WORKER) Sinusitis BMI 40.0-44.9, adult Shingles SARAI (obstructive sleep apnea) COPD (chronic obstructive pulmonary disease) HLD (hyperlipidemia) HTN (hypertension) Diabetes Surgical History H/O colonoscopy S/P cervical spinal fusion S/P left rotator cuff repair History of total left knee replacement Family History Mother , Mother in her early 60s Pancreatic cancer Father , Father at 68 COPD (chronic obstructive pulmonary disease) Social History Smoking Status: Unknown if ever smoked alcohol intake: never current occupational status: other Travel in the last 8 weeks?: None Have you lived/traveled outside US in past 30 days?: No Contact w/someone who lives/traveled outside US past 30 days?: No Exposure to someone with infectious disease in past 14 days?: No Do you have a fever (greater than 100.4 F or 38 C)?: No Have you tested positive for COVID-19?: No Exposed to someone with COVID-19 in past 14 days?: No Do you have a sore throat?: No Do you have a cough?: No Do you have any weakness?: No Do you have any diarrhea?: No Are you experiencing any unusual bleeding?: No Do you have any muscle aches/pain?: No Do you have any abdominal pain?: No Are you experiencing loss of taste or smell?: No Other 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 Have you received the Flu Vaccine for this season: No Have you received the Pneumonia Vaccine: Yes <April Le (ED), IRRIGATION WORKER - Last Filed: 11/27/24 21:51> ROS Obtained: Yes Systems reviewed as appropriate & no additional complaints except as documented Constitutional Constitutional: Reports as per HPI Physical Exam <Aprilbernadette Le (ED), IRRIGATION WORKER - Last Filed: 11/27/24 21:51> General General appearance: alert and in no apparent distress Head Head exam: normocephalic Eye Eye exam: Present PERRL and EOMI ENT ENT exam: Present normal oropharynx and mucous membranes moist Neck Neck exam: Present normal inspection, full ROM and trachea midline Respiratory Respiratory exam: Present normal lung sounds bilaterally Cardiovascular Cardiovascular exam: Present regular rate, normal rhythm, normal heart sounds, +S1 and +S2 Abdominal Exam Abdominal exam: Present soft and normal bowel sounds Extremities Exam Extremities exam: Present full ROM and normal capillary refill Neurological Exam Neurological exam: Present alert, oriented X3 and normal gait Psychiatric Psychiatric exam: Present normal mood Skin Skin exam: Present warm and dry HEART Score <April [facility] IRRIGATION WORKER - Last Filed: 11/27/24 21:51> HEART Score HEART Score assessment performed?: Yes History (anamnesis): Slightly suspicious ECG: Non-specific disturbance Age: >65 years Risk factors: 3 or more risk factors Troponin: </= normal limit HEART Score: 5 <Jose Grajeda MD - Last Filed: 11/28/24 20:01> HEART Score HEART Score: 5 Critical Care <April [facility] IRRIGATION WORKER - Last Filed: 11/27/24 21:51> Critical Care Time Critical Care Time: No Medical Decision Making <[facility] ([facility]), IRRIGATION WORKER - Last Filed: 11/27/24 21:51> Silvino Inquiry Pt receiving controlled substance: No Silvino was queried for this patient: No Vital Signs Vital Signs: 11/27/24 19:21 11/27/24 20:05 11/27/24 22:33 Temperature 97.8 F 98.4 F Temperature Source Oral Pulse Rate 68 94 H Pulse Rate [Radial] 91 H Respiratory Rate 18 18 Blood Pressure 134/76 Blood Pressure [Right Arm] 160/80 H Blood Pressure Mean [Right Arm] 106 Blood Pressure Source [Right Arm] Manual Cuff/ Auscultation Blood Pressure Position [Right Arm] Supine 02 Sat by Pulse Oximetry 96 Oxygen Delivery Method Room Air Room Air Lab Data Labs: Lab Results 11/27/24 19:20: WBC 11.0 H, RBC 4.77, Hgb 13.8 L, Hct 43.2, MCV 90.6, MCH 28.9, MCHC 31.9, RDW 14.4, Plt Count 206, MPV 10.1, Neut % (Auto) 65.8, Lymph % (Auto) 21.2, [place] % (Auto) 8.4, Eos % (Auto) 3.7, Baso % (Auto) 0.4, Neut # (Auto) 7.3, Lymph # (Auto) 2.3, [place] # (Auto) 0.9, Eos # (Auto) 0.4, Baso # (Auto) 0.0, Sodium 140, Potassium 4.5, Chloride 104, Carbon Dioxide 30, Anion Gap 10.5, BUN 23 H, Creatinine 1.10, Estimated Creat Clear 65, Estimated GFR 66, Est GFR ( Amer) 80, Glucose 114 H, Calcium 9.1, Magnesium 2.0, Total Bilirubin 0.8, AST 27, ALT 21, Alkaline Phosphatase 86, Troponin I 0.01, Total Protein 7.2, Albumin 4.4, Globulin 2.8, Albumin/Globulin Ratio 1.6, Lipase 44 11/27/24 21:40: Troponin I 0.01 11/27/24 19:20 11/27/24 19:20 Response Orders (Tests/Meds): ED MEDICATIONS Discontinued Medications Generic Name Dose Route Start Last Admin Trade Name Freq PRN Reason Stop Dose Admin Belladonna Alkaloids 60 ml 11/27/24 20:09 11/27/24 20:45 Belladonna Alkaloids 60 Ml Ml PO 11/27/24 20:10 60 ml ONCE ONE Administration Famotidine 20 mg 11/27/24 20:09 11/27/24 20:45 Famotidine 20mg/2ml Vial IV 11/27/24 20:10 20 mg ONCE ONE Administration Iopamidol 80 ml 11/27/24 20:22 11/27/24 20:23 Iopamidol-370 (76%);100ml Bottle IV 11/27/24 20:23 80 ml ONCE ONE Administration Sodium Chloride 8 ml 11/27/24 20:09 11/27/24 20:45 Sodium Chloride 0.9% 10ml Vial IV 12/27/24 20:08 8 ml NEEDED PRN Administration dilute pepcid Sodium Chloride 50 ml 11/27/24 20:22 11/27/24 20:23 0.9 % Sodium Chloride 50 Ml Vial IV 11/27/24 20:23 50 ml ONCE ONE Administration Sodium Chloride 10 ml 11/27/24 20:22 11/27/24 20:23 Sodium Chloride 0.9% 10ml Syr (Rad Only) IV 12/27/24 20:21 10 ml NEEDED PRN Administration Maintain IV Site ORDERS Category Date Time Status CT angio chest - dissection Stat Cat Scan 11/27/24 19:32 Completed CBC [Complete Blood Count Auto Diff] Stat Lab 11/27/24 19:20 Completed Comprehensive Metabolic Panel Stat Lab 11/27/24 19:20 Completed Lipase Stat Lab 11/27/24 19:20 Completed Magnesium Stat Lab 11/27/24 19:20 Completed Trop I [Troponin I] Stat Lab 11/27/24 19:20 Completed Troponin I Q3H Lab 11/27/24 21:40 Completed MDM Narrative Medical Decision Narrative: patient is a 69-year-old male presenting to the emergency department for evaluation of chest pain, shortness of breath. Patient is hemodynamically stable and nontoxic-appearing upon arrival, afebrile. Differential diagnosis includes aortic aneurysm rupture, CT, NSTEMI, COPD exacerbation among others. Workup will be conducted with hematologic labs, specific imaging. Initial inventions include [crystalloid bolus, analgesics, antibiotics, etc.]. Initial workup reviewed by me [hematologic labs are remarkable for:]. [Imaging informally interpreted by me and remarkable for:] [Formal imaging read remarkable for:] Upon repeat evaluation [patient's pain is improved, appears better perfused, appears the same, appears worse, etc.]. Due to this [additional interventions, patient is appropriate for discharge, patient requires admission, etc.]. <Jose Grajeda MD - Last Filed: 11/28/24 20:01> Vital Signs Vital Signs: 11/27/24 19:21 11/27/24 20:05 11/27/24 22:33 Temperature 97.8 F 98.4 F Temperature Source Oral Pulse Rate 68 94 H Pulse Rate [Radial] 91 H Respiratory Rate 18 18 Blood Pressure 134/76 Blood Pressure [Right Arm] 160/80 H Blood Pressure Mean [Right Arm] 106 Blood Pressure Source [Right Arm] Manual Cuff/ Auscultation Blood Pressure Position [Right Arm] Supine 02 Sat by Pulse Oximetry 96 Oxygen Delivery Method Room Air Room Air Lab Data Labs: Lab Results 11/27/24 19:20: WBC 11.0 H, RBC 4.77, Hgb 13.8 L, Hct 43.2, MCV 90.6, MCH 28.9, MCHC 31.9, RDW 14.4, Plt Count 206, MPV 10.1, Neut % (Auto) 65.8, Lymph % (Auto) 21.2, [place] % (Auto) 8.4, Eos % (Auto) 3.7, Baso % (Auto) 0.4, Neut # (Auto) 7.3, Lymph # (Auto) 2.3, [place] # (Auto) 0.9, Eos # (Auto) 0.4, Baso # (Auto) 0.0, Sodium 140, Potassium 4.5, Chloride 104, Carbon Dioxide 30, Anion Gap 10.5, BUN 23 H, Creatinine 1.10, Estimated Creat Clear 65, Estimated GFR 66, Est GFR ( Amer) 80, Glucose 114 H, Calcium 9.1, Magnesium 2.0, Total Bilirubin 0.8, AST 27, ALT 21, Alkaline Phosphatase 86, Troponin I 0.01, Total Protein 7.2, Albumin 4.4, Globulin 2.8, Albumin/Globulin Ratio 1.6, Lipase 44 11/27/24 21:40: Troponin I 0.01 Response Orders (Tests/Meds): ED MEDICATIONS Discontinued Medications Generic Name Dose Route Start Last Admin Trade Name Freq PRN Reason Stop Dose Admin Belladonna Alkaloids 60 ml 11/27/24 20:09 11/27/24 20:45 Belladonna Alkaloids 60 Ml Ml PO 11/27/24 20:10 60 ml ONCE ONE Administration Famotidine 20 mg 11/27/24 20:09 11/27/24 20:45 Famotidine 20mg/2ml Vial IV 11/27/24 20:10 20 mg ONCE ONE Administration Iopamidol 80 ml 11/27/24 20:22 11/27/24 20:23 Iopamidol-370 (76%);100ml Bottle IV 11/27/24 20:23 80 ml ONCE ONE Administration Sodium Chloride 8 ml 11/27/24 20:09 11/27/24 20:45 Sodium Chloride 0.9% 10ml Vial IV 12/27/24 20:08 8 ml NEEDED PRN Administration dilute pepcid Sodium Chloride 50 ml 11/27/24 20:22 11/27/24 20:23 0.9 % Sodium Chloride 50 Ml Vial IV 11/27/24 20:23 50 ml ONCE ONE Administration Sodium Chloride 10 ml 11/27/24 20:22 11/27/24 20:23 Sodium Chloride 0.9% 10ml Syr (Rad Only) IV 12/27/24 20:21 10 ml NEEDED PRN Administration Maintain IV Site ORDERS Category Date Time Status CT angio chest - dissection Stat Cat Scan 11/27/24 19:32 Completed CBC [Complete Blood Count Auto Diff] Stat Lab 11/27/24 19:20 Completed Comprehensive Metabolic Panel Stat Lab 11/27/24 19:20 Completed Lipase Stat Lab 11/27/24 19:20 Completed Magnesium Stat Lab 11/27/24 19:20 Completed Trop I [Troponin I] Stat Lab 11/27/24 19:20 Completed Troponin I Q3H Lab 11/27/24 21:40 Completed MDM Narrative Medical Decision Narrative: patient is a 69-year-old male presenting to the emergency department for evaluation of chest pain, shortness of breath. Patient is hemodynamically stable and nontoxic-appearing upon arrival, afebrile. Differential diagnosis includes aortic aneurysm rupture, CT, NSTEMI, COPD exacerbation among others. Workup will be conducted with hematologic labs, specific imaging. Purvi Grajeda MD took over care of this patient at approximately 2100. On reassessment, his troponins are flat, low suspicion for ACS. His chest pain is completely resolved after interventions. I suspect gastritis. He takes Pepcid as needed, but will place on daily. Instructed to precautions discussed all question answered patient amenable tp the plan and discharge I was consulted by the REJI, and we discussed the complexity of problems being addressed. I approved the treatment and management plan for this patient's care in the emergency department, thus performing a substantial portion of the medical decision making. Jose Grajeda MD
[2024-11-27 19:40] LABS: Basophils % 0.4 % (0.1-2.0); Eosinophils # 0.4 Kmm3 (0.0-0.4); Eosinophils % 3.7 % (0.1-12.0); Hematocrit 43.2 % (42.0-52.0); Hemoglobin 13.8 g/dL (14.1-18.0); Immature Granulocytes # 0.06 10^3uL; Immature Granulocytes % 0.5 %; Lymphocytes # 2.3 K/mm3 (0.7-4.5); Lymphocytes % 21.2 % (10-50); Mean Corpuscular HGB Conc 31.9 g/dL (31.8-35.4); Mean Corpuscular Hemoglobin 28.9 pg (27.0-31.2); Mean Corpuscular Volume 90.6 fl (80-94); Mean Platelet Volume 10.1 fl (7.4-10.4); Monocytes # 0.9 K/mm3 (0.1-1.0); Monocytes % 8.4 % (1.7-9.3); Neutrophils # 7.3 K/mm3 (1.8-7.8); Neutrophils % 65.8 % (37.0-80.0); Nucleated Red Blood Cells # 0 10^3/uL; Nucleated Red Blood Cells % 0 %; Platelet Count 206 K/mm3 (142-424); Red Blood Count 4.77 M/mm3 (4.60-6.20); Red Cell Distribution Width 14.4 % (11.5-17.5); Red Cell Distribution Width-SD 47.4 fL
[2024-11-27 19:47] LABS: Alanine Aminotransferase 21 U/L (12-78); Albumin Level 4.4 g/dl (3.5-5.0); Albumin/Globulin Ratio 1.6 (1.1-1.8); Alkaline Phosphatase 86 U/L (38-126); Anion Gap 10.5 mEq/L (5-15); Aspartate Amino Transferase 27 U/L (17-59); Bilirubin,Total 0.8 mg/dl (0.2-1.3); Blood Urea Nitrogen 23 mg/dl (9-20); Calcium 9.1 mg/dl (8.4-10.2); Carbon Dioxide 30 mmol/L (22.0-30.0); Chloride 104 mmol/L (98-107); Creatinine Clearance Estimated 65 mL/min (50-200); Estimated Glomerular Filt Rate 66 ml/min (>60); GFR (African American) 80 ML/MIN (>60); Globulin 2.8 g/dL (1.3-3.2); Glucose 114 mg/dl (74-100); Lipase 44 U/L (23-300); Potassium 4.5 mmoL/L (3.5-5.1); Sodium 140 mmol/L (136-145); Total Protein,Serum 7.2 g/dl (6.3-8.2)
[2024-11-27 20:03] LABS: Troponin I 0.01 ng/ml (0.00-0.034)
[2024-11-27 20:05] VITALS: PULSE 68
[2024-11-27] MEDS: IOPAMIDOL-370 (76%);100ML BOTTLE 80 ML IV (20:23)
[2024-11-27] MEDS: 0.9 % SODIUM CHLORIDE 50 ML VIAL IV (20:23)
[2024-11-27] MEDS: SODIUM CHLORIDE 0.9% 10ML SYR (RAD ONLY) 10 ML IV (20:23)
[2024-11-27] MEDS: SODIUM CHLORIDE 0.9% 10ML VIAL 8 ML IV (20:45)
[2024-11-27] MEDS: BELLADONNA ALKALOIDS 60 ML ML PO (20:45)
[2024-11-27] MEDS: FAMOTIDINE 20MG/2ML VIAL 20 MG IV (20:45)
[2024-11-27 22:10] LABS: Troponin I 0.01 ng/ml (0.00-0.034)
[2024-11-27 22:33] VITALS: BP 134/76; PULSE 94; RESP 18; TEMP 36.9; O2SAT 98
== END 2024-11-27 22:42 | disposition home or self-care (01) ==
PROVIDERS: Nurse Practitioner; Emergency Provider Emergency Medicine; PCP Internal Medicine
DX: R07.89 Other chest pain (principal); J44.9 Chronic obstructive pulmonary disease, unspecified; I10 Essential (primary) hypertension
CPT/HCPCS: 71275; 80053; 83690; 83735; 84484; 85025; 93005; 96374; 99285; Q9967

== ENCOUNTER 2025-02-02 20:52 | Emergency (ER) | payer MEDICARE, BC, SELFPAY ==
--- OUTSIDE RECORDS SUMMARY | 2024-02-08 11:45 | XMS_ITS | Continuity of Care Document ---
Author Organization [facility] Address [address] [place] [address] Phone Care Team Providers Care Creative Services Manager Name Role Phone Santos SETH Sheila Unavailable [...] Encounter Office/outpa tient visit,est, mod [facility], [address] [place] [address], [address], [place] tel:[phone] Wakita Lowman Office Visit (chief complaint) Presence of left artificial knee joint 4 Claudia Sosa. [address] [place] [address], [address], [place]. tel:[phone] Referring Provider: Sheila Fleming, [address] [place] [address], [facility]. tel:[phone] [facility], [address] [place] [address], [address], [place] tel:[phone] Wakita Lowman No Information 4 Claudia Sosa. [address] [place] [address], [address], [place]. tel:[phone] Referring Provider: Sheila Fleming, [address] [place] [address], [facility]. tel:[phone] [facility], [address] [place] [address], [address], [place] tel:[phone] Wakita Lowman No Information 4 Ayaan Chavis. [address] [place] [address], [address], [place]. tel:[phone] Referring Provider: Sheila Fleming, [address] [place] [address], [address]. tel:[phone] Office/outpa tient visit,est, mod [facility], [address] [place] [address], [address], [place] tel:[phone] Wakita Lowman Follow Up (chief complaint) Presence of left artificial knee joint 4 Billjuanita Sosa. [address] [place] [address], [address], [place]. tel:[phone] Referring Provider: Sheila Fleming, [address] [place] [address], [facility]. tel:[phone] Office/outpa tient visit,est, mod [facility], [facility] [address] [place], [address], [place] tel:[phone] Wakita Lowman EPNP (chief complaint) Impingement syndrome of right shoulderImping ement syndrome of left shoulder Russel- 4 Claudia Sosa. [address] [place], [address], [place]. tel:[phone] Referring Provider: Sheila Fleming, [address] [place], [address]. tel:[phone] [facility] [address], [address], [place] tel:[phone] Wakita Lowman General orthopedic (chief complaint) Presence of left artificial knee joint Mar- 2 Claudia Sosa. [address] [place], [address], [place]. tel:[phone] Referring Provider: Sheila Fleming, [facility] [place], [address]. tel:[phone] [facility], [address] [place] [address], [address], [place] tel:[phone] Wakita Lowman General orthopedic (chief complaint) Presence of left artificial knee joint Feb- 2 Claudia Sosa. [facility] [place], [address], [place]. tel:[phone] Referring Provider: Sheila Fleming, [address] [place], [address]. tel:[phone], [address], [place] tel:[phone] Wakita Lowman General orthopedic (chief complaint) Presence of left artificial knee joint 2 Deborah Dalton. [address] [place], [place], [id number] , [place]. tel:[phone] Referring Provider: Partha Jaffe, [address] [place], [address]. tel:[phone] [facility], [address] [place] [address], [address], tel:[phone] 700 [facility] No Information 2 Ayaancristian Chavis. [address] [place] [address], [address], . tel:[phone] Referring Provider: Partha Jaffe, [address] [place] [address], [address]. tel:[phone] [facility], [address] [place] [address], [address], tel:[phone] 700 [facility] No Information 2 Deborah Sha. [address] [place], [place], [id number] , . tel:[phone] Referring Provider: Partha Jaffe, [address] [place] [address], [facility]. tel:[phone] Office/outpa tient visit,est, [facility], [facility], tel:[phone] (chief complaint) Presence of left artificial knee joint 2 Billjuanita Sosa. [address] [place] [address], [address], [place]. tel:[phone] Referring Provider: Sheila Fleming, [address] [place] [address], [facility]. tel:[phone] [facility], [address] [place] [address], [facility], [place] tel:[phone] 700 [facility] General orthopedic (chief complaint) Unsp rotatr-cuff tear/ruptr of left shoulder, not traumaCutaneou s abscess of right upper limb 2 Billjuanita Sosa. [address] [place] [address], [address], [place]. tel:[phone] Referring Provider: Sheila Fleming, [address] [place] [address], [facility]. tel:[phone] [facility] [place], [address], [place] tel:[phone] [facility] General orthopedic (chief complaint) Unsp rotatr-cuff tear/ruptr of left shoulder, not trauma Russel-0 2 Bills Sheila. [address] [place], [address], [place]. tel:[phone] Referring Provider: Partha Jaffe, [address] [place], [place], [facility]. tel:[phone] [facility], [address] [place] [address], [address], [place] tel:[phone] [facility] General orthopedic (chief complaint) Unsp rotatr-cuff tear/ruptr of left shoulder, not trauma October- 2 Bills Sheila. [address] [place], [address], [place]. tel:[phone] Referring Provider: Sheila Fleming, [address] [place] [address], [facility]. tel:[phone] [facility], [address] [place] [address], [address], [place] tel:[phone] [facility] General orthopedic (chief complaint) Unsp rotatr-cuff tear/ruptr of left shoulder, not trauma October- 2 Bills Sheila. [address] [place], [address], [place]. tel:[phone] Referring Provider: Partha Jaffe, [address] [place] [address], [facility]. tel:[phone] [facility], [address] [place] [address], [address], [place] tel:[phone] [facility] No Information October- 2 Ayaan Chavis. [address] [place] [address], [address], [place]. tel:[phone] Referring Provider: Partha Jaffe, [address] [place] [address], [facility]. tel:[phone] [facility], [address] [place], [address], [place] tel:[phone] [facility] No Information 2 Deborah Dalton. [address] [place], [place], [id number] , . tel:[phone] Referring Provider: Partha Jaffe, [facility] [place], [address]. tel:[phone] Office/outpa tient visit,est, mod [facility], [address] [place] [address], [address], [place] tel:[phone] Wakita Lowman General orthopedic (chief complaint) Unsp rotatr-cuff tear/ruptr of left shoulder, not trauma 2 Ayaan Chavis. [address] [place], [address], [place]. tel:[phone] Referring Provider: Partha Jaffe, [address] [place], [address]. tel:[phone] Office/outpa tient visit,est, [facility], [address] [place], [address], [place] tel:[phone] Wakita Lowman general orthopedic (chief complaint) Cutaneous abscess of right upper limb 2 Claudia Sosa. [address] [place], [place] [address], [address], [place]. tel:[phone] Referring Provider: Partha Jaffe, [address] [place], [address]. tel:[phone] Office/outpa tient visit,est, [facility], [address] [place] [address], [address], [place] tel:[phone] Wakita Lowman general orthopedic (chief complaint) Primary osteoarthritis , left shoulderCellul itis of left upper limb Fe 2 Claudia Sosa. [facility] [place], [address], [place]. tel:[phone] Referring Provider: Sheila Fleming, [address] [place] [address], [facility]. tel:[phone] Office/outpa tient visit,est, [facility], [address] [place] [address], [facility], tel:[phone] [facility] (chief complaint) Primary osteoarthritis , left shoulder 1 Claudia Sosa. [address] [place] [address], [facility], . tel:[phone] Referring Provider: Sheila Fleming, [address] [place] [address]. tel:[phone] [facility], [address] [place] [address], [facility], tel:[phone] [facility] general [facility]opedic (chief complaint) Cellulitis of left upper limb 1 Ayaan Chavis. [address] [place] [address], [facility], . tel:[phone] Referring Provider: Partha Jaffe, [address] [place] [address], [facility]. tel:[phone] Office/outpa tient visit,est, [facility], [address] [place] [address], [facility], tel:[phone] [facility] general orthopedic (chief complaint) Primary osteoarthritis , left shoulder 1 Claudia Sosa. [address] [place] [address], [facility], . tel:[phone] Referring Provider: Partha Jaffe, [address] [place] [address], [facility]. tel:[phone] Office/outpa tient visit,est, [facility], [facility], tel:[phone] [facility] general orthopedic (chief complaint) Primary osteoarthritis , right shoulderCutane ous abscess of right upper limbOther cervical disc degeneration, unsp cervical regionPrimary osteoarthritis , left shoulder 1 Claudia Sosa. [address] [place] [address], [place], [address], [place]. tel:[phone] Referring Provider: Partha Jaffe, [address] [place] [address], [address]. tel:[phone] Office/outpa tient visit,est, mod [facility], [address] [place], [address], [place] tel:[phone] [facility] general orthopedic (chief complaint) Unsp rotatr-cuff tear/ruptr of left shoulder, not traumaCutaneou s abscess of right upper limb Sep-2 1 Billjuanita Sheila. [address] [place] [address], [address], [place]. tel:[phone] Referring Provider: Sheila Fleming, [address] [place] [address], [facility]. tel:[phone] [facility], [facility] [address] [place], [place], [facility], [place] tel:[phone] [facility] orthopedic (chief complaint) Unsp rotatr-cuff tear/ruptr of left shoulder, not trauma Sep-1 1 Claudia Sosa. [address] [place] [address], [address], [place]. tel:[phone] Referring Provider: Partha Jaffe, [address] [place] [address], [address]. tel:[phone] [facility], [address] [place] [address], [facility], [place] tel:[phone] [facility] general orthopedic (chief complaint) Unsp rotatr-cuff tear/ruptr of left shoulder, not trauma Aug-0 1 Claudia Sosa. [address] [place] [address], [address], [place]. tel:[phone] Referring Provider: Partha Jaffe, [address] [place] [address], [address]. tel:[phone] [facility], [address] [place], [address], [place] tel:[phone] Wakita Lowman general orthopedic (chief complaint) Unsp rotatr-cuff tear/ruptr of left shoulder, not trauma 1 Bills Sheila. [address] [place], [address], [place]. tel:[phone] Referring Provider: Sha Mcarthur, [address] [place], [address] . tel:[phone] [facility], [facility] [address] [place], [address], [place] tel:[phone] 700 [facility] general orthopedic (chief complaint) Unsp rotatr-cuff tear/ruptr of left shoulder, not traumaCutaneou s abscess of right upper limb 1 Billjuanita Sosa. [address] [place], [address], [place]. [phone] Referring Provider: Partha Jaffe, [address] [place], [address]. tel:[phone] [facility], [facility] [address] [place], [address], [place] tel:[phone] 700 [facility] orthopedic (chief complaint) Unsp rotatr-cuff tear/ruptr of left shoulder, not trauma 1 Ayaan Chavis. [address] [place], [address], [place]. tel:[phone] Referring Provider: Partha Jaffe, [address] [place], [address]. tel:[phone] [facility], [facility] [address] [place], [address], [place] tel:[phone] 700 [facility] general orthopedic (chief complaint) Unsp rotatr-cuff tear/ruptr of left shoulder, not trauma 1 Deborah Dalton. [address] [place], [id number] , [place]. tel:[phone] Referring Provider: Partha Jaffe, [address] [place], [address]. tel:[phone] [facility], [address] [place], [address], [place] tel:[phone] [facility] general orthopedic (chief complaint) Unsp rotatr-cuff tear/ruptr of left shoulder, not trauma 1 Deboarh Dalton. [address] [place], [place], [id number] , [place]. tel:[phone] Referring Provider: Catarino Kinsey, [address], [place], [address] . tel:[phone] [facility], [facility] [place], [address], [place] tel:[phone] 700 [facility] No Information 1 Ayaan Chavis. [address] [place] [address], [address], . tel:[phone] Referring Provider: Partha Jaffe, [address] [place] [address], [address]. tel:[phone] [facility], [address] [place], [address], [place] tel:[phone] 700 [facility] No Information 1 Deborah Dalton. [address] [place], [id number] , [place]. tel:[phone] Referring Provider: Partha Jaffe, [address] [place], [place] [address], [place], [address]. tel:[phone] Office/outpa tient visit,est, mod [facility], [facility] [place], [address], [place] tel:[phone] 700 [facility] general orthopedic (chief complaint) Unsp rotatr-cuff tear/ruptr of left shoulder, not trauma 1 Ayaan Chavis. [address] [place], [place] [address], [address], . tel:[phone] Referring Provider: Partha Jaffe, [address] [place], [address]. tel:[phone] [facility], [facility] [place], [address], tel:[phone] [facility] No Information 1 Ayaan Chavis. [address] [place] [address], [address], . tel:[phone] Referring Provider: Partha Jaffe, [address] [place] [address], [facility]. tel:[phone] Office/outpa tient visit,[facility], [facility] [place], [address], tel:[phone] [facility] general orthopedic (chief complaint) No Information 1 Ayaan Chavis. [address] [place] [address], [address], . tel:[phone] Referring Provider: Partha Jaffe, [address] [place] [address], [facility]. tel:[phone] Family History Family Member Type Diagnosis Age At Onset Mother Problem (finding) Cancer Sister Problem (finding) Osteoarthritis Mother Problem (finding) Osteoarthritis Brother Problem (finding) Hypertension Mother Problem (finding) Hypertension Sister Problem (finding) Hypertension Father Problem (finding) Depression Mother Problem (finding) Diabetes mellitus Sister Problem (finding) Cancer Payers Payer name Insurance type Covered constitution party ID Authoriza tion(s) [place] [id number] [facility] [id number] Social History Type Description Quantity Date Captured [...] Radiology Order CT Lower Extremity/Leg WITHOUT Contrast (58436), Ordered on: Ordered Future Order: Radiology Order MR Purvi Shoulder WO Contrast ([id number]), Ordered on: Ordered Future Order: Radiology Order Up per Extremity/Arm CT WITH Contrast ([id number]), Ordered on: Ordered Future Order: Radiology Order MR Purvi Shoulder WO Contrast ([id number]), Collected on: , Sent on: Sent History [...] better. general orthopedic Post op Lt Sh oulder, Incision red and warm general orthopedic post [...]
--- OUTSIDE RECORDS SUMMARY | 2024-12-07 10:30 | XMS_ITS | Encounter Summary ---
Author Name [facility] [place] [facility] [place] Organization [facility] [place] [facility] [place] Address [address] [place] [address] Care Team Providers Care Pony Trimmer Name Role Phone VERÓNICA LEAHY Primary Care [...] PART A Feb 18, 2019 PART A [id number] GAEL ZAVALA PATIENT MEDICARE (WNR) MEDICARE (M) PART B Feb 18, 2019 PART B [id number] GAEL ZAVALA PATIENT MEDICARE (WNR) MEDICARE (M) PART B Feb 18, 2019 PART B [id number] 36A GAEL ZAVALA PATIENT MEDICARE (WNR) MEDICARE (M) PART B Feb 18, 2019 PART B [id number] GAEL ZAVALA PATIENT MEDICARE (WNR) MEDICARE (M) PART A Jul 21, 1993 PART A [id number] 36A GAEL ZAVALA PATIENT MEDICARE (WNR) MEDICARE (M) PART A Jul 21, 1993 PART A [id number] 36A GAEL ZAVALA PATIENT MEDICARE (WNR) MEDICARE (M) PART A Jul 21, 1993 PART A [id number] GAEL ZAVALA PATIENT Selected Encounter This section includes the information on record at [place] for the Encounter. Date/Time Encounter Type Encounter Description Reason Provider Source Dec 07, 2024 02:30 PM Outpatient Encounter SLEEP MEDICINE ICD-10-CM G47.33 Obstructive sleep apnea (adult) (pediatric) AVRIL DIAL Augie Encounter Template Text not used by [place] Assessments - Encounter Diagnoses This section includes the primary and secondary diagnoses documented for the Encounter. Date/Time Primary/Secondary Diagnosis Diagnosis Name Provider Source Dec 09, 2024 09:48 AM PRIMARY Obstructive sleep apnea (adult) (pediatric) AVRIL DIAL [facility] Plan of Treatment: Future Appointments (+ 6 months) and Future Tests (+/- 45 days) The Plan of Treatment section includes future care activities for the patient [facility] [place] [facility] This section includes future appointments and future orders which are active, pending or scheduled. Future Appointments This section includes appointments that were scheduled to occur 6 months from the date of the Encounter, up to a maximum of 20 appointments. The data comes from all [facility]. Appointment Date/Time Appointment Type Appointme nt Facility Name Jan 18, 2025 08:00 AM AMBULATORY - NONE [facility] Mar 25, 2025 01:00 PM AMBULATORY - MEDICINE [facility] Apr 18, 2025 09:00 AM [facility] Active, Pending, and Scheduled Orders This [...] Date/Time Test Type Test Details Facility Name Dec 12, 2024 10:20 AM Consult Order [facility] HOMEMAKER/HOME HEALTH AIDE Cons Wheel Aligner's Choice [facility] Social History: Smoking Status (Most current) and Tobacco Use (All prior to encounter date) This section includes the most current, and the historical, smoking and tobacco- related health factors from the [place] facility where the Encounter took place. Current Smoking Status This section includes the most current smoking, or tobacco-related health factor, from the [place] facility where the Encounter took place. Date/Time Current Smoking Status Comment Facil ity Nov 23, 2022 02:30 PM VA-TOBACCO FORMER USER [facility] Tobacco Use History This section includes a history of the smoking, or tobacco-related health factors, that were collected on or before the date of the Encounter. The data comes from the [place] facility where the Encounter took place. Date/Time Smoking Status/Tobacco Use Comment F acility Nov 23, 2022 02:30 PM VA-TOBACCO QUIT 15 YRS OR MORE [facility] Oct 16, 2021 09:30 AM VA-TOBACCO FORMER USER [facility] Oct 16, 2021 09:30 AM VA-TOBACCO QUIT 15 YRS OR MORE [facility] Sep 11, 2020 11:00 AM VA-TOBACCO FORMER USER [facility] Sep 11, 2020 11:00 AM VA-TOBACCO QUIT 5 TO < 15 YRS [facility] May 07, 2019 02:08 PM VA-TOBACCO FORMER USER [facility] May 07, 2019 02:08 PM VA-TOBACCO QUIT 5 TO < 15 YRS [facility] Mar 12, 2010 09:51 AM V9 QUIT TOBACCO >1 2 MO & <7 YRS AGO [facility] Mar 12, 2010 09:51 AM V9 TOBACCO OFFERED [facility] Feb 16, 2008 01:45 PM V9 QUIT TOBACCO IN THE LAST 12 MONTHS [facility] Oct 06, 2006 08:18 AM TOBACCO OFFERRED P T MEDS (PROVIDER) [facility] Oct 06, 2006 08:18 AM V9 CURRENT TOBACCO USER [facility] Oct 06, 2006 08:18 AM V9 TOBACCO OFFERED [facility] Jul 01, 2006 02:16 PM V9 CURRENT TOBACCO USER 1ppd [facility] Jul 02, 2005 02:53 PM HF V9 CURRENT SMOKER 1ppd [facility] Encounter Notes: All associated encounter notes This section contains the clinical notes associated to the Encounter. Date/Time Encounter Note(s) Provider Source Dec 10, 2024 02:20 PM ADDENDUM: LOCAL TITLE: Addendum STANDARD TITLE: ADDENDUM DATE OF NOTE: DEC 10, 2024@14:20:02 ENTRY DATE: DEC 10, 2024@14:20:03 AUTHOR: Jacob MCGUIRE COSIGNER: URGENCY: STATUS: COMPLETED says his power cord has a shortage and is needed to be sent a replacement power cord. /tess/ Dat Wang Advanced Senior Net Engineer Signed: 12/10/2024 14:22 Receipt Acknowledged By: 12/10/2024 15:38 /tess/ AXEL SAINI Registered Respiratory Therapist === --- Original Document --- 12/07/24 C-PAP CONSULT RESPONSE NOTE: Date of SLEEP STUDY : 08/14/2020 AHI: 63 Type of Machine: ResMed Airsense 10 Auto-Pap Serial Number: [id number] Humidifer:Heated Humidair Pressure : 7-16cm Mask: Medium Airfit F20 Tubing: Climate Line Air Appointment duration = 20-30 minutes total. Total duration includes both patient interaction and administrative completion of appointment. Pt hasn't used and has only 12 hours on C-pap and went over usage again and will check on in 56 Months. Equipment assessed. Determined to be set and functioning properly. Patient is not in compliant ranges. Patient instructed to contact Sleep Center with any questions and/or concerns. Reiterated proper use of machine, mask, heater, and importance of humidity. Patient encouraged to use equipment at least 4 hours per night. Patient encouraged to wear mask & use machine during daytime to help relieve anxiety if necessary. Discussed the diagnosis of obstructive Sleep Apnea and potential health risks. RTC: 6 Month F/U /tess/ AVRIL DIAL RPSGT/Radiographer Signed: 12/09/2024 09:48 DAT MCGUIRE [facility] Dec 07, 2024 02:45 PM SLEEP MEDICINE CON SULT: LOCAL TITLE: C-PAP CONSULT RESPONSE NOTE STANDARD TITLE: SLEEP MEDICINE CONSULT DATE OF NOTE: DEC 07, 2024@14:45 ENTRY DATE: DEC 09, 2024@09:44:26 AUTHOR: AVRIL DIAL EXP COSIGNER: URGENCY: STATUS: COMPLETED C-PAP CONSULT RESPONSE NOTE Has ADDENDA Date of SLEEP STUDY : 08/14/2020 AHI: 64 Type of Machine: ResMed Airsense 10 Auto-Pap Serial Number: [id number] Humidifer:Heated Humidair Pressure : 7-16cm Mask: Medium Airfit F20 Tubing: Climate Line Air Appointment duration = 20-30 minutes total. Total duration includes both patient interaction and administrative completion of appointment. Pt hasn't used and has only 12 hours on C-pap and went over usage again and will check on in 56 Months. Equipment assessed. Determined to be set and functioning properly. Patient is not in compliant ranges. Patient instructed to contact Sleep Center with any questions and/or concerns. Reiterated proper use of machine, mask, heater, and importance of humidity. Patient encouraged to use equipment at least 4 hours per night. Patient encouraged to wear mask & use machine during daytime to help relieve anxiety if necessary. Discussed the diagnosis of obstructive Sleep Apnea and potential health risks. RTC: 6 Month F/U /tess/ AVRIL DIAL RPSGT/Radiographer Signed: 12/09/2024 09:48 12/10/2024 ADDENDUM STATUS: COMPLETED [place] says his power cord has a shortage and is needed to be sent a replacement power cord. /tess/ Dat Wang Advanced Senior Net Engineer Signed: 12/10/2024 14:22 Receipt Acknowledged By: * AWAITING SIGNATURE * AXEL SAINI [facility]
--- OUTSIDE RECORDS SUMMARY | 2024-12-12 06:13 | XMS_ITS | Encounter Summary ---
Author Name [facility] [place] Address [address] [place] [address] Care Team Providers Care Dental Laboratory Assistant Name Role Phone VERÓNICA SULLIVAN Primary Care Provider Unavailabl e Insurance [...] PART A Feb 18, 2019 PART A [id number] GAEL ALLEN PATIENT MEDICARE (WNR) MEDICARE (M) PART B Feb 18, 2019 PART B [id number] RR13 GAEL ALLEN PATIENT MEDICARE (WNR) MEDICARE (M) PART B Feb 18, 2019 PART B [id number] 36A GAEL ALLEN PATIENT MEDICARE (WNR) MEDICARE (M) PART B Feb 18, 2019 PART B [id number] RR13 GAEL ALLEN PATIENT MEDICARE (WNR) MEDICARE (M) PART A Jul 21, 1993 PART A [id number] 36A GAEL ALLEN PATIENT MEDICARE (WNR) MEDICARE (M) PART A Jul 21, 1993 PART A [id number] 36A GAEL ALLEN PATIENT MEDICARE (WNR) MEDICARE (M) PART A Jul 21, 1993 PART A [id number] RR13 GAEL ALLEN PATIENT Selected Encounter This section includes the information on record at [place] for the Encounter. Date/Time Encounter Type Encounter Description Reason Provider Source Dec 12, 2024 10:13 AM PH1 ASSMT&MGMT NQHP 11-20 TELEPHONE/ANCILLA RY ICD-10-CM Z74.1 Need for assistance with personal care ZAC LALA [facility] Encounter Template Text not used by [place] Assessments - Encounter Diagnoses This section includes the primary and secondary diagnoses documented for the Encounter. Date/Time Primary/Secondary Diagnosis Diagnosis Name Provider Source Dec 12, 2024 10:13 AM PRIMARY Need for assistance with personal care ZAC LALA [facility] Plan of Treatment: Future Appointments (+ 6 months) and Future Tests (+/- 45 days) The Plan of Treatment section includes future care activities for the patient from all [place] treatmentfacilities. This section includes future appointments and future orders which are active, pending or scheduled. Future Appointments This section includes appointments that were scheduled to occur 6 months from the date of the Encounter, up to a maximum of 20 appointments. The data comes from all [place] treatment facilities. Appointment Date/Time Appointment Type Appointme nt Facility Name Jan 18, 2025 08:00 AM AMBULATORY - NONE [facility] Mar 25, 2025 01:00 PM AMBULATORY - MEDICINE [facility] Apr 18, 2025 09:00 AM AMBULATORY - MEDICINE [facility] Jun 10, 2025 01:00 PM AMBULATORY - NEUROLOGY ZACH DIXON [facility] Active, Pending, and Scheduled Orders This section includes a listing of several types of active, pending, and scheduled orders, including clinic medications orders, diagnostic test orders, procedure orders and consult orders; where the start date of the order is 45 days before the date of the Encounter or 45 days after the date of theEncounter. The data comes from all [place] treatment facilities. Test Date/Time Test Type Test Details Facility Name Dec 12, 2024 10:20 AM Consult Order [facility] HOMEMAKER/HOME HEALTH AIDE Cons Inside Sales Person's Choice [facility] Social History: Smoking Status (Most current) and Tobacco Use (All prior to encounter date) This section includes the most current, and the historical, smoking and tobacco- related health factors from the [place] facility where the Encounter took place. Current Smoking Status This section includes the most current smoking, or tobacco-related health factor, from the [place] facility where the Encounter took place. Date/Time Current Smoking Status Comment Facil ity Nov 23, 2022 02:30 PM VA-TOBACCO FORMER USER [facility] Tobacco Use History This section includes a history of the smoking, or tobacco-related health factors, that were collected on or before the date of the Encounter. The data comes from the [place] facility where the Encounter took place. Date/Time Smoking Status/Tobacco Use Comment F acramon Nov 23, 2022 02:30 PM VA-TOBACCO QUIT 15 YRS OR MORE [facility] Oct 16, 2021 09:30 AM VA-TOBACCO FORMER USER [facility] Oct 16, 2021 09:30 AM VA-TOBACCO QUIT 15 YRS OR MORE [facility] Sep 11, 2020 11:00 AM VA-TOBACCO FORMER USER [facility] Sep 11, 2020 11:00 AM VA-TOBACCO QUIT 5 TO < 15 YRS [facility] May 07, 2019 02:08 PM VA-TOBACCO FORMER USER [facility] May 07, 2019 02:08 PM VA-TOBACCO QUIT 5 TO < 15 YRS [facility] Mar 12, 2010 09:51 AM V9 QUIT TOBACCO >1 2 MO & <7 YRS AGO [facility] Mar 12, 2010 09:51 AM V9 TOBACCO OFFERED [facility] Feb 16, 2008 01:45 PM V9 QUIT TOBACCO IN THE LAST 12 MONTHS [facility] Oct 06, 2006 08:18 AM TOBACCO OFFERRED P T MEDS (PROVIDER) [facility] Oct 06, 2006 08:18 AM V9 CURRENT TOBACCO USER [facility] Oct 06, 2006 08:18 AM V9 TOBACCO OFFERED [facility] Jul 01, 2006 02:16 PM V9 CURRENT TOBACCO USER 1ppd [facility] Jul 02, 2005 02:53 PM HF V9 CURRENT SMOKER 1ppd [facility] Encounter Notes: All associated encounter notes This section contains the clinical notes associated to the Encounter. Date/Time Encounter Note(s) Provider Source Dec 12, 2024 10:18 AM SOCIAL WORK HOME H EALTH NOTE: LOCAL TITLE: HOMEMAKER/HOME HEALTH AID SOCIAL WORK NOTE STANDARD TITLE: SOCIAL WORK HOME HEALTH NOTE DATE OF NOTE: DEC 12, 2024@10:18 ENTRY DATE: DEC 12, 2024@10:18:30 AUTHOR: KELLEY LALA COSIGNER: URGENCY: STATUS: COMPLETED Certification Start Date: Jan Certification End Date: Jul Provider: Verónica Sullivan Services ordered and Approved days/hours for H/FIBERGLASS BOAT PARTS FINISHER: Ranger is eligible for up to 11 hours a week maximum of Homemaker, Home Health Aide hours. Agency: [facility] NPI# [id number] Serafin Contact: [email or web address] [address], [address], [place] [address] Time spent on review: 15 min, phone, , Need assistance with personal care Reason for review: annual Ranger is a Case Mix A will add 2 hours Second Range. The step daughter provides the care for the Ranger, she moved in with him. She preforms mostly IADL's; grocery, cooking, housekeeping laundry, Medication monitoring. ADL; helps get his socks and shoes on, difficulty pulling on some clothes, help in and out of the shower but mostly there if assistance is needed. Mobility is an issue, and cleans up after has toileting accidents. HCBS Case Mix & Budget Tool (CASE MIX) Date Given: 12/12/2024 Clinician: Kelley Lala Location: [facility] Telephone : Miquel Allen SSN: [id number] : [birth year]69) Gender: Male Type of Evaluation: Annual Anticipated Start Date: 12/12/2024 Anticipated Length of Service: 6 months Case Mix Level: A ADL Category: Low Questions and Answers: Q1. DRESSING *2 Need some help from another person to put your clothes on. Q2. GROOMING 0 Can comb your hair, wash your face, shave or brush your teeth without help of any kind. Q3. BATHING 2 Need and get supervision only. Q4. EATING 0 Can eat without help of any kind. Q5. BED MOBILITY 0 Can move in bed without any help. Q6. TRANSFERRING *2 Need one other person to help you. Q7. WALKING 0 Walk without help of any kind. Q8. BEHAVIOR 0 Behavior requires no intervention. Q9. COMMUNICATION 2 Sometimes Understood. Q10. TOILETING *1 Need some help to get to and on the toilet but don't have accidents. Q11. MDS HC 2.0/CPS Cognitive Skill for Daily Decision Making 1 Modified Nahma - some difficulty in new situations only. Q12. MDS 2.0/CPS: Short Term Memory (recall of what was learned or known) 1 Memory problem Q13. SPECIAL TREATMENTS 2 One or more [place] such as: 7. Oxygen & Respiratory Therapy Q14. CLINICAL MONITORING 1 1-2 shifts a day Q15. SPECIAL NURSING No Q16. NEUROMUSCULAR DIAGNOSIS No COMMENTS Dependent in 2 adl's. SOURCES 3. Medical Record /es/ Kelley Lala LCSW Stucco Worker Signed: 12/12/2024 10:31 KELLEY LALA [facility]
--- OUTSIDE RECORDS SUMMARY | 2025-01-11 09:16 | XMS_ITS | Encounter Summary ---
Author Name [facility] [place] Organization [facility] [place] Address [address] [place] [address] Care Team Providers Care Welding Machine Operator Arc Name Role Phone VERÓNICA LEAHY Primary Care [...] PART A Feb 18, 2019 PART A [id number] RR13 [id number] GAEL ZAVALA PATIENT MEDICARE (WNR) MEDICARE (M) PART B Feb 18, 2019 PART B [id number] RR13 GAEL ZAVALA PATIENT MEDICARE (WNR) MEDICARE (M) PART B Feb 18, 2019 PART B [id number] 36A GAEL ZAVALA PATIENT MEDICARE (WNR) MEDICARE (M) PART B Feb 18, 2019 PART B [id number] GAEL ZAVALA PATIENT MEDICARE (WNR) MEDICARE (M) PART A Jul 21, 1993 PART A [id number] [phone] [id number] GAEL ZAVALA PATIENT MEDICARE (WNR) MEDICARE (M) PART A Jul 21, 1993 PART A [id number] 36A GAEL ZAVALA PATIENT MEDICARE (WNR) MEDICARE (M) PART A Jul 21, 1993 PART A [id number] RR13 GAEL ZAVALA PATIENT Selected Encounter This section includes the information on record at [place] for the Encounter. Date/Time Encounter Type Encounter Description Reason Pro vider Source Jan 11, 2025 01:16 PM Outpatient Encounter ADMIN PAT ACTIVTIES (MASNONCT) IHE Encounter Template Text not used by [place] Plan of Treatment: Future Appointments (+ 6 months) and Future Tests (+/- 45 days) The Plan of Treatment section includes future care activities for the patient from all [place] treatmentfacilities. This section includes future appointments and future orders which are active, pending or scheduled. Future Appointments This section includes appointments that were scheduled to occur 6 months from the date of the Encounter, up to a maximum of 20 appointments. The data comes from all [place] treatment [facility]. Appointment Date/Time Appointment Type Appointme nt Facility Name Jan 18, 2025 08:00 AM [facility] Mar 25, 2025 01:00 PM AMBULATORY - MEDICINE [facility] Apr 18, 2025 09:00 AM AMBULATORY - MEDICINE [facility] Jun 10, 2025 01:00 PM AMBULATORY - NEUROLOGY [facility] Active, Pending, and Scheduled Orders This section includes a listing of several types of active, pending, and scheduled orders, including clinic medications orders, diagnostic test orders, procedure orders and consult orders; where the start date of the order is 45 days before the date of the Encounter or 45 days after the date of theEncounter. The data comes from all [place] treatment [facility]. Test Date/Time Test Type Test Details Facility Name Dec 12, 2024 10:20 AM Consult Order [facility] HOMEMAKER/HOME HEALTH AIDE Cons Headliner Installer's Choice [facility] Social History: Smoking Status (Most current) and Tobacco Use (All prior to encounter date) This section includes the most current, and the historical, smoking and tobacco- related health factors from the [place] facility where the Encounter took place. Current Smoking Status This section includes the most current smoking, or tobacco-related health factor, from the [place] facility where the Encounter took place. Date/Time Current Smoking Status Comment Alondra ity Dec 25, 1998 09:22 AM NON-TOBACCO USER [facility] Tobacco Use History This section includes a history of the smoking, or tobacco-related health factors, that were collected on or before the date of the Encounter. The data comes from the [place] facility where the Encounter took place. Date/Time Smoking Status/Tobacco Use Comment F acramon Jan 17, 1998 06:10 PM NON-TOBACCO USER [facility] Encounter Notes: All associated encounter notes This section contains the clinical notes associated to the Encounter. Date/Time Encounter Note(s) Provider Source Jan 11, 2025 01:16 PM PRIMARY CARE LETTE RS: [facility] TITLE: PC LETTER FOLLOW UP/PAST RECALL/INACTIVE STANDARD TITLE: PRIMARY CARE LETTERS DATE OF NOTE: JAN 11, 2025@13:16 ENTRY DATE: JAN 11, 2025@13:27:03 AUTHOR: ANDREW ARANA EXP COSIGNER: URGENCY: STATUS: COMPLETED [place] [id number] [place] [address] Mr. MIQUEL ZAVALA [address] [place], [place] [address] JAN 11, 2025 Dear Mr. MIQUEL ZAVALA, Our Records indicate you are past due for an appointment in primary care. We value you as a patient, and are concerned about your overall health. Patients are encouraged to see their Primary Care Provider annually to maintain their health care needs. If you would like to be seen and maintain enrollment in Primary Care, please contact our Telephone Care Program at or local [phone] to schedule an appointment. If you do not wish to be seen, please call the same number listed above, and let us know. We look forward to hearing from you soon. Sincerely, /tess/ ANDREW ARANA ADVANCED RESIDENTIAL NURSE Patient Record Number [id number] ANDREW ARANAD [facility]
--- OUTSIDE RECORDS SUMMARY | 2025-01-14 11:52 | XMS_ITS | Encounter Summary ---
Author Name [facility] [place] [facility] [place] [facility] [place] [facility] [place] Address [address] [place] [address] Care Team Providers Care Clinical Documentation Clerk Name Role Phone VERÓNICA LEAHY Primary [...] PART A Feb 18, 2019 PART A [id number] GAEL ZAVALA PATIENT MEDICARE (WNR) MEDICARE (M) PART B Feb 18, 2019 PART B [id number] GAEL ZAVALA PATIENT MEDICARE (WNR) MEDICARE (M) PART B Feb 18, 2019 PART B [id number] GAEL ZAVALA PATIENT MEDICARE (WNR) MEDICARE (M) PART B Feb 18, 2019 PART B [id number] GAEL ZAVALA PATIENT MEDICARE (WNR) MEDICARE (M) PART A Jul 21, 1993 PART A [id number] 36A GAEL ZAVALA PATIENT MEDICARE (WNR) MEDICARE (M) PART A Jul 21, 1993 PART A [id number] 36A GAEL ZAVALA PATIENT MEDICARE (WNR) MEDICARE (M) PART A Jul 21, 1993 PART A [id number] GAEL ZAVALA PATIENT Selected Encounter This section includes the information on record at [place] for the Encounter. Date/Time Encounter Type Encounter Description Reason Provider Source Jan 14, 2025 03:52 PM PH1 ASSMT&MGMT NQHP 5-10 TELEPHONE/ANCILLAR Y ICD-10-CM Z71.0 Prsn encntr hlth serv to consult on behalf of another person LENA HORTON CH Encounter Template Text not used by [place] Assessments - Encounter Diagnoses This section includes the primary and secondary diagnoses documented for the Encounter. Date/Time Primary/Secondary Diagnosis Diagnosis Name Provider Source Jan 14, 2025 03:52 PM PRIMARY Prsn encntr hlth serv to consult on behalf of another person LENA HORTON CH [facility] Plan of Treatment: Future Appointments (+ 6 months) and Future Tests (+/- 45 days) The Plan of Treatment section includes future care activities for the patient from all [place] treatmentfacilities. This section includes future appointments and future orders which are active, pending or scheduled. Future Appointments This section includes appointments that were scheduled to occur 6 months from the date of the Encounter, up to a maximum of 20 appointments. The data comes from all [place] treatment facilities. Appointment Date/Time Appointment Type Appointme nt Facility Name Jan 18, 2025 08:00 AM AMBULATORY - NONE [facility] Mar 25, 2025 01:00 PM AMBULATORY - MEDICINE [facility] Apr 18, 2025 09:00 AM AMBULATORY - MEDICINE [facility] Jun 10, 2025 01:00 PM AMBULATORY - NEUROLOGY [facility] Active, Pending, and Scheduled Orders This section includes a listing of several types of active, pending, and scheduled orders, including clinic medications orders, diagnostic test orders, procedure orders and consult orders; where the start date of the order is 45 days before the date of the Encounter or 45 days after the date of theEncounter. The data comes from all [place] treatment facilities. Test Date/Time Test Type Test Details Facility Name Dec 12, 2024 10:20 AM Consult Order [facility] HOMEMAKER/HOME HEALTH AIDE Cons Joint Filler's Choice [facility] Social History: Smoking Status (Most current) and Tobacco Use (All prior to encounter date) This section includes the most current, and the historical, smoking and tobacco- related health factors from the [place] facility where the Encounter took place. Current Smoking Status This section includes the most current smoking, or tobacco-related health factor, from the [place] facility where the Encounter took place. Date/Time Current Smoking Status Comment Alondra ity Nov 23, 2022 02:30 PM VA-TOBACCO FORMER USER [facility] Tobacco Use History This section includes a history of the smoking, or tobacco-related health factors, that were collected on or before the date of the Encounter. The data comes from the [place] facility where the Encounter took place. Date/Time Smoking Status/Tobacco Use Comment F acramon Nov 23, 2022 02:30 PM VA-TOBACCO QUIT 15 YRS OR MORE [facility] Oct 16, 2021 09:30 AM VA-TOBACCO FORMER USER [facility] Oct 16, 2021 09:30 AM VA-TOBACCO QUIT 15 YRS OR MORE [facility] Sep 11, 2020 11:00 AM VA-TOBACCO FORMER USER [facility] Sep 11, 2020 11:00 AM VA-TOBACCO QUIT 5 TO < 15 YRS [facility] May 07, 2019 02:08 PM VA-TOBACCO FORMER USER [facility] May 07, 2019 02:08 PM VA-TOBACCO QUIT 5 TO < 15 YRS [facility] Mar 12, 2010 09:51 AM V9 QUIT TOBACCO >1 2 MO & <7 YRS AGO [facility] Mar 12, 2010 09:51 AM V9 TOBACCO OFFERED [facility] Feb 16, 2008 01:45 PM V9 QUIT TOBACCO IN THE LAST 12 MONTHS [facility] Oct 06, 2006 08:18 AM TOBACCO OFFERRED P T MEDS (PROVIDER) [facility] Oct 06, 2006 08:18 AM V9 CURRENT TOBACCO USER [facility] Oct 06, 2006 08:18 AM V9 TOBACCO OFFERED [facility] Jul 01, 2006 02:16 PM V9 CURRENT TOBACCO USER 1ppd [facility] Jul 02, 2005 02:53 PM HF V9 CURRENT SMOKER 1ppd [facility] Encounter Notes: All associated encounter notes This section contains the clinical notes associated to the Encounter. Date/Time Encounter Note(s) Provider Source Jan 14, 2025 03:55 PM CAREGIVER CERTIFIC ATE: LOCAL TITLE: [facility] TELEPHONE NOTE STANDARD TITLE: CAREGIVER CERTIFICATE DATE OF NOTE: JAN 14, 2025@15:55 ENTRY DATE: JAN 14, 2025@15:55:08 AUTHOR: GIAN CRESPO COSIGNER: URGENCY: STATUS: COMPLETED [facility] TELEPHONE NOTE Has ADDENDA Heavy Equipment Operator returned Caregiver's (CG) call at [phone]. CG reported that someone had called [facility] approximately one week ago regarding caregiver services. Upon further discussion, it was discovered that H/FORCER MAKER PM had called to complete annual renewal. CG requested that H/FORCER MAKER PM call her back to explain any adjustments as [facility] and CG are worried that they may be losing services. Heavy Equipment Operator assured CG that services had been renewed but CG would still like to speak with someone from [facility]. Heavy Equipment Operator will notify H/FORCER MAKER PM of request. V/A - H/FORCER MAKER PM for follow-up. Length of Contact: 5 minutes Diagnosis: Person Encountering Health Services to Consult on Behalf of another Person Procedure: PHONE CALL BY PROF 5-10 MIN - Clinical Guzzler Builder /tess/ LENA CRESPO LCSW CAREGIVER ORNAMENTAL PAINTER Signed: 01/14/2025 15:58 Receipt Acknowledged By: 01/15/2025 07:49 /tess/ Kelley Lala LCSW Rehabilitation Medicine Physician 01/15/2025 ADDENDUM STATUS: COMPLETED Sw tried to reach caregiver at the above number and have been able to reach her. /tess/ Kelley Lala LCSW Rehabilitation Medicine Physician Signed: 01/15/2025 13:39 01/15/2025 ADDENDUM STATUS: COMPLETED UNABLE to reach her. Error above. /tess/ Kelley Lala LCSW Rehabilitation Medicine Physician Signed: 01/15/2025 13:39 GIAN CRESPO [facility]
--- OUTSIDE RECORDS SUMMARY | 2025-01-15 11:44 | XMS_ITS | Encounter Summary ---
Author Name [facility] [place] Organization [facility] [place] [facility] [place] Address [address] [place] [address] Care Team Providers Care Supply Chain Business Analyst Name Role Phone VERÓNICA LEAHY Primary Care [...] PART A Feb 18, 2019 PART A [id number] RR13 [id number] GAEL ZAVALA PATIENT MEDICARE (WNR) MEDICARE (M) PART B Feb 18, 2019 PART B [id number] RR13 GAEL ZAVALA PATIENT MEDICARE (WNR) MEDICARE (M) PART B Feb 18, 2019 PART B [id number] 36A GAEL ZAVALA PATIENT MEDICARE (WNR) MEDICARE (M) PART B Feb 18, 2019 PART B [id number] GAEL ZAVALA PATIENT MEDICARE (WNR) MEDICARE (M) PART A Jul 21, 1993 PART A [id number] [phone] [id number] GAEL ZAVALA PATIENT MEDICARE (WNR) MEDICARE (M) PART A Jul 21, 1993 PART A [id number] 36A GAEL ZAVALA PATIENT MEDICARE (WNR) MEDICARE (M) PART A Jul 21, 1993 PART A [id number] RR13 [phone] [id number] GAEL ZAVALA PATIENT Selected Encounter This section includes the information on record at [place] for the Encounter. Date/Time Encounter Type Encounter Description Reason Pro vider Source Jan 15, 2025 03:44 PM Outpatient Encounter ADMIN PAT ACTIVTIES (MASNONCT) IHE Encounter Template Text not used by [place] Plan of Treatment: Future Appointments (+ 6 months) and Future Tests (+/- 45 days) The Plan of Treatment section includes future care activities for the patient from all [place] treatmentfacilities. This section includes future appointments and future orders which are active, pending or scheduled. Future Appointments This section includes appointments that were scheduled to occur 6 months from the date of the Encounter, up to a maximum of 20 appointments. The data comes from all [place] treatment [facility]. Appointment Date/Time Appointment Type Appointme nt Facility Name Jan 18, 2025 08:00 [facility] Mar 25, 2025 01:00 PM AMBULATORY - MEDICINE [facility] Apr 18, 2025 09:00 AM AMBULATORY - MEDICINE [facility] Jun 10, 2025 01:00 PM AMBULATORY - NEUROLOGY [facility] Active, Pending, and Scheduled Orders This section includes a listing of several types of active, pending, and scheduled orders, including clinic medications orders, diagnostic test orders, procedure orders and consult orders; where the start date of the order is 45 days before the date of the Encounter or 45 days after the date of theEncounter. The data comes from all [place] treatment [facility]. Test Date/Time Test Type Test Details Facility Name Dec 12, 2024 10:20 AM Consult Order [facility] HOMEMAKER/HOME HEALTH AIDE Cons Entry Level Electrician's Choice [facility] Social History: Smoking Status (Most current) and Tobacco Use (All prior to encounter date) This section includes the most current, and the historical, smoking and tobacco- related health factors from the [place] facility where the Encounter took place. Current Smoking Status This section includes the most current smoking, or tobacco-related health factor, from the [place] facility where the Encounter took place. Date/Time Current Smoking Status Comment Alondra ity Dec 25, 1998 09:22 AM NON-TOBACCO USER [facility] Tobacco Use History This section includes a history of the smoking, or tobacco-related health factors, that were collected on or before the date of the Encounter. The data comes from the [place] facility where the Encounter took place. Date/Time Smoking Status/Tobacco Use Comment Bernadette acramon Jan 17, 1998 06:10 PM NON-TOBACCO USER [facility] Encounter Notes: All associated encounter notes This section contains the clinical notes associated to the Encounter. Date/Time Encounter Note(s) Provider Source Jan 15, 2025 03:44 PM ADMINISTRATIVE NOT E: LOCAL TITLE: CCC: SCHEDULING ADMINISTRATION STANDARD TITLE: ADMINISTRATIVE NOTE DATE OF NOTE: JAN 15, 2025@15:44:04 ENTRY DATE: JAN 15, 2025@15:44:05 AUTHOR: DERRICK FLORES EXP COSIGNER: URGENCY: STATUS: COMPLETED CCC: SCHEDULING ADMINISTRATION Has ADDENDA Caller Verification Call Back Number: [phone] Emergency Contact: MARIA DOLORES PRYOR Emergency Contact Caller/Recipient Relation to Patient: Other If Other Describe Relation to Patient: Step child Caller Name: ROYA Administrative Administrative Note Reason: Returned Call Administrative Note Comments: is returning a call from BUSHRA Benson. Please call back when available. IMPORTANT: This note was created by [place] [facility] staff. Please do not alert the staff member by adding them as a signer for future communications. Alerts are not monitored by this user. /tess/ DERRICK FLORES Advanced Residential Property Consultant Signed: 01/15/2025 15:44 Receipt Acknowledged By: 01/16/2025 07:09 /tess/ Kelley Lala LCSW Vibrating Screen Operator 01/16/2025 ADDENDUM STATUS: COMPLETED Sw returned call. /es/ Kelley Lala LCSW Vibrating Screen Operator Signed: 01/16/2025 11:08 DERRICK FLORES-[facility]
[2025-02-02] VITALS (7 sets, daily range): BP systolic 119–162; BP diastolic 56–100; PULSE 74–79; RESP 14–19; TEMP 36.4; O2SAT 94–98; BMI 46.6
--- OUTSIDE RECORDS SUMMARY | 2025-02-02 15:58 | XMS_ITS | Continuity of Care Document ---
Author Name [facility] Organization [facility] Care Team Providers Care Automotive Detailer Name Role Phone [facility] Unavailable Unavailable Problems Combined list of problems from Department of Defense and [facility] Affairs facilities. It does not include entries that were removed or entered in error. Problem Status Onset Date Problem Type Date of Resolution Comments Source Allergic rhinitis Active Condition [facility] CAD - Coronary artery disease Active Condition Nov 23, 2022 Entered By: VERÓNICA LEAHY Comment: s/p cath and stent 05/2022 [place] [facility] Chronic obstructive lung disease Active Condition [place] [facility] Chronic pain Active Condition [place] Depressive disorder Active Condition [place] [facility] Diabetes Mellitus without mention of Complication, type II or unspecified type, Active Condition [facility] N Diabetic neuropathy Active Condition [place] [facility] Gastroesophageal reflux disease (SNOMED CT [id number]) Active Condition [facility] N Hyperlipidemia Active Condition [place] [facility] hypertension, essential Active Condition [facility] N Insomnia Active Condition [place] [facility] Memory loss Active Condition [place] [facility] Obstructive sleep apnea syndrome Active Condition [place] [facility] Seborrhoeic dermatitis of scalp Active Condition [place] Severe persistent allergic asthma uncontrolled (SNOMED CT [id number]) Active Condition [place] [facility] Simple obesity Active Condition [place] [facility] N Hyperglycemia Inactive Condition 05/28/2019 [place] NEUROTIC DEPRESSION Inactive Condition 05/28/2019 [place] [facility] Diagnosis: ICD-10-CM Z71.0 Prsn encntr hlth serv to consult on behalf of another person Active Diagnosis [facility] Diagnosis: ICD-10-CM Z74.1 Need for assistance with personal care Active Diagnosis [facility] Diagnosis: ICD-10-CM G47.33 Obstructive sleep apnea (adult) (pediatric) Active Diagnosis [facility] Diagnosis: ICD-10-CM J44.9 Chronic obstructive pulmonary disease, unspecified Active Diagnosis [facility] Diagnosis: ICD-10-CM J45.40 Moderate persistent asthma, uncomplicated Active Diagnosis [facility] Diagnosis: ICD-10-CM Z13.6 Encounter for screening for cardiovascular disorders Active Diagnosis [facility] Diagnosis: ICD-10-CM J45.50 Severe persistent asthma, uncomplicated Active Diagnosis [facility] Diagnosis: ICD-10-CM Z02.89 Encounter for other administrative examinations Active Diagnosis [facility] Diagnosis: ICD-10-CM Z74.2 Need for assist at home & no house memb able to render care Active Diagnosis [facility] Diagnosis: ICD-10-CM Z71.89 Other specified counseling Active Diagnosis [facility] Diagnosis: ICD-10-CM R06.00 Dyspnea, unspecified Active Diagnosis [facility] Medications Combined list of outpatient medications from Department of Defense and [facility] Affairs facilities.Medications provided include 1) outpatient medications from the last 15 months, and 2) patient-reported medications. Medication Details Route Status Patient Instructions Prescription Expires Prescription Number Last Dispense Date Ordering Provider Order Date Order Qty Source 14 MUSHROOM COMPLEX CAP/TAB TAKE BY MOUTH TWICE A DAY ORAL ACTIVE LEAHY,PRITCHARD UR N 2022 [place] [facility] ACETAMINOPH EN 325MG TAB TAKE TWO TABLETS BY MOUTH DAILY NEEDED ORAL ACTIVE LEAHY,PRITCHARD UR N 2022 [place] [facility] ALBUTEROL SO4 3MG/IPRATRO PIUM BR 0.5MG/3ML INHL,3ML USE 1 AMP (3ML) IN NEBULIZE R THREE TIMES A DAY RESPIR ATORY (INHAL ATION) ACTIVE LEAHY,PRITCHARD UR N 2020 [place] ASPIRIN 81MG TAB,EC TAKE ONE TABLET BY MOUTH DAILY ORAL ACTIVE LEAHY,PRITCHARD UR N 2023 [place] [facility] ATORVASTATI N CA 40MG TAB TAKE ONE TABLET BY MOUTH DAILY ORAL ACTIVE LEAHY,PRITCHARD UR N 2023 [place] [facility] DULOXETINE HCL 60MG CAP,EC TAKE 1 CAPSULE BY MOUTH DAILY ORAL ACTIVE LEAHY,PRITCHARD UR N 2022 [place] [facility] EZETIMIBE 10MG TAB TAKE ONE TABLET BY MOUTH EVERY EVENING ORAL ACTIVE LEAHY,PRITCHARD UR N 2022 [place] [facility] FLUOXETINE HCL 20MG CAP TAKE 3 CAPSULES BY MOUTH DAILY ORAL ACTIVE LEAHY,PRITCHARD UR N 2020 [place] FLUTICASONE PROPIONATE 50MCG/SPRAY SOLN,NASAL, 16GM USE 2 SPRAYS IN EACH NOSTRIL DAILY NASAL ACTIVE LEAHY,PRITCHARD UR N 2023 [place] [facility] GABAPENTIN 400MG CAP TAKE 3 CAPSULES BY MOUTH THREE TIMES A DAY ORAL ACTIVE LEAHY,PRITCHARD UR N 2020 [place] INSULIN CONC REG 500 UNT/ML*KWIK PEN* INJ INJECT 40 UNITS UNDER THE SKIN EVERY MORNING AND INJECT 30 UNITS UNDER THE SKIN QAM QAM^EVER Y MORNING^ C^09 SUBCUT ANEOUS ACTIVE LEAHY,PRITCHARD UR N 2023 [place] [facility] KETOCONAZOL E 2% SHAMPOO SHAMPOO WITH SMALL AMOUNT AFFECTED AREA TWICE PER WEEK FOR DANDRUFF TOPICA L 01/28/2024 [id number] 4 LEAHY,PRITCHARD UR N 2023 120 [place] [facility] LIDOCAINE 5% PATCH APPLY TO SKIN DAILY TRANSD ERMAL ACTIVE LEAHY,PRITCHARD UR N 2022 [place] [facility] LOPERAMIDE SUSP,ORAL TAKE BY MOUTH PRN ORAL ACTIVE LEAHY,PRITCHARD UR N 2020 [place] LORATADINE 10MG TAB TAKE ONE TABLET BY MOUTH DAILY ORAL ACTIVE LEAHY,PRITCHRAD UR N 2023 [place] [facility] MOMETASONE FUROATE 200MCG/ACTU AT INHL,ORAL,1 20D,13GM INHALE 2 PUFFS BY MOUTH TWICE A DAY FOR ASTHMA -RINSE MOUTH AND SPIT AFTER EACH USE RESPIR ATORY (INHAL ATION) ACTIVE 04/20/2025 [id number] 5 LUCRECIA BULL 2023 3 [place] MONTELUKAST NA 10MG TAB TAKE ONE TABLET BY MOUTH AT BEDTIME FOR ASTHMA ORAL ACTIVE 03/31/2025 [id number] 5 JAZIEL MONTOYA J 2023 90 [place] [facility] MONTELUKAST NA 10MG TAB TAKE ONE TABLET BY MOUTH AT BEDTIME FOR ASTHMA ORAL DISCONT INUED 04/07/2024 [id number] 4 LUCRECIA BULL 2022 90 [place] MULTIVITAMI NS W/MINERALS CAP/TAB TAKE 1 CAP(S)/T AB BY MOUTH DAILY ORAL ACTIVE LEAHY,PRITCHARD UR N 2022 [place] [facility] OLODATEROL 2.5MCG/TIOT ROPIUM 2.5MCG/ACTU AT INHL,ORAL,6 0D,4GM INHALE 2 PUFFS BY MOUTH DAILY FOR BREATHIN G ORAL ACTIVE 04/20/2025 [id number] 5 LUCRECIA BULL 2023 3 [place] SEMAGLUTIDE (WT LOSS) INJ,SOLN INJECT UNDER THE SKIN EVERY WEEK SUBCUT ANEOUS ACTIVE LEAHY,PRITCHARD UR N 2023 [place] [facility] TICAGRELOR 90MG TAB TAKE ONE TABLET BY MOUTH TWICE A DAY ORAL ACTIVE LEAHY,PRITCHARD UR N 2022 [place] [facility] Allergies, Adverse Reactions, Alerts Combined list of allergies from Department of Defense and Veterans Affairs facilities. It does not include entries that were removed or entered in error. Substance Category Reaction Severity Reaction type Status Date Reported Comments Source BACTRIM Propensity to adverse reactions to drug (finding) HIVES active 8 [facility] LISINOPRIL Propensity to adverse reactions to drug (finding) Eruption active 9 [facility] NONSTEROIDAL ANTI-INFLAMMA TORY Propensity to adverse reactions to drug (finding) active 6 [facility] PRAVASTATIN Propensity to adverse reactions to drug (finding) Eruption active 2 [facility] Immunizations Combined list of available immunizations from the Department of Defense and Veterans Affairs facilities. Immunization Series Date Given Administered By Site Reaction Lot Number CVX Code Drug Jewelry Department Supervisor Status Comments Source INFLUENZA, HIGH-DOSE, QUADRIVALENT 2 2022 197 complet ed HISTORICA L INFORMATI ON - FROM OTHER REGISTRY, [place] [facility] INFLUENZA, INJECTABLE, QUADRIVALENT, PRESERVATIVE FREE 1 2021 150 complet ed HISTORICA L INFORMATI ON - FROM OTHER REGISTRY, [place] [facility] COVID-19 ([employer]), MRNA, LNP-S, BIVALENT, PF, 30 MCG/0.3 ML DOSE 1 2021 300 complet ed HISTORICA L INFORMATI ON - FROM PATIENT'S WRITTEN RECORD, [place] [facility] INFLUENZA, UNSPECIFIED FORMULATION 2021 88 complet ed Completed Series, HISTORICA L INFORMATI ON - FROM PATIENT'S RECALL, [place] [facility] COVID-19 ([employer]), MRNA, LNP-S, PF, 30 MCG/0.3 ML DOSE, RISA-SUCROSE (AGES 12+ YEARS) 1 2021 217 complet ed HISTORICA L INFORMATI ON - FROM OTHER REGISTRY, [place] [facility] INFLUENZA, UNSPECIFIED FORMULATION 2021 88 complet ed [place] [facility] PNEUMOCOCCAL CONJUGATE PCV20, POLYSACCHARID E AMP870 CONJUGATE, ADJUVANT, PF 2021 216 complet ed HISTORICA L INFORMATI ON - FROM PATIENT'S WRITTEN RECORD, [place] [facility] COVID-19 ([employer]), MRNA, LNP-S, PF, 30 MCG/0.3 ML DOSE 2 2020 208 complet ed [facility] COVID-19 ([employer] VECTOR-NR, [id number]-[id number], PF, 0.5 ML 1 2020 212 complet ed [place] [facility] INFLUENZA, UNSPECIFIED FORMULATION 2019 88 complet ed [place] [facility] ZOSTER RECOMBINANT 2 2018 187 complet ed HISTORICA L INFORMATI ON - FROM PATIENT'S WRITTEN RECORD, [place] [facility] ZOSTER RECOMBINANT 1 2018 187 complet ed HISTORICA L INFORMATI ON - FROM PATIENT'S WRITTEN RECORD, [place] [facility]- [place] TD(ADULT) UNSPECIFIED FORMULATION 2006 139 complet ed [place] [facility] A & B (HISTORICAL) 2005 88 complet ed [place] [facility] A & B (HISTORICAL) 2004 88 complet ed [place] [facility] FLU,3 YRS (HISTORICAL) 2002 DENIA FLORES 88 complet ed [place] INFLUENZA, UNSPECIFIED FORMULATION 1996 TURCIOS 88 complet ed [place] TD(ADULT) UNSPECIFIED FORMULATION 1996 CJ VIVEROS T 139 complet ed pt states given in 1996 [place] INFLUENZA, UNSPECIFIED FORMULATION 1995 NAAYA ZAMARRIPA D 88 complet ed [place] PNEUMOCOCCAL, UNSPECIFIED FORMULATION 1993 CJ VIVEROS T 109 complet ed pt states given in 1993 [place] Results Combined list of recent chemistry, hematology [...] Type: SERUM No comment entered. Ordering Provider: AJYE BULL Report Released Date/Time: Sep 08, 2023 10:30 AM Reporting Lab: [facility] [address] [facility] [phone] Performing Lab: [facility] [address] [place] [phone] [place] [facility] BNP (GONSALEZ) NATRIURETIC PEPTIDE B [MASS/VOLUM E] [...] Sep 08, 2023 10:30 AM Reporting Lab: [facility] [address] [address] Performing Lab: AJO- D [address] [address] [facility] AUTOMATED DIFF LYMPHOCYTES /100 LEUKOCYTES IN BLOOD BY AUTOMATED COUNT 20.4 24.0 - 44.0 09/07 L Specimen Type: BLOOD No comment entered. Ordering Provider: JAYE BULL Report Released Date/Time: Sep 08, 2023 10:30 AM Reporting Lab: [facility] [address] [address] Performing Lab: [facility] D [address] [address] [facility] AUTOMATED DIFF MONOCYTES/1 00 LEUKOCYTES IN BLOOD BY AUTOMATED COUNT 6.5 0.1 - 6.0 09/07 H Specimen Type: BLOOD No comment entered. Ordering Provider: JAYE BULL Report Released Date/Time: Sep 08, 2023 10:30 AM Reporting Lab: [facility] [address] [address] Performing Lab: [facility] [address] [address] [place] [facility] AUTOMATED DIFF GRANULOCYTE S/100 LEUKOCYTES IN BLOOD BY AUTOMATED COUNT 68.5 42.0 - 75.0 09/07 Specimen Type: BLOOD No comment entered. Ordering Provider: JAYE BULL Report Released Date/Time: Sep 08, 2023 10:30 AM Reporting Lab: [facility] [address] [address] Performing Lab: [facility] [place] [phone] [place] [facility] AUTOMATED DIFF LYMPHOCYTES [#/VOLUME] IN BLOOD BY AUTOMATED COUNT 2.66 10*3/u L 1.20 - 3.40 09/07 Specimen Type: BLOOD No comment entered. Ordering Provider: JAYE BULL Report Released Date/Time: Sep 08, 2023 10:30 AM Reporting Lab: [place] [phone] Performing Lab: [place] [phone] [place] AUTOMATED DIFF MONOCYTES [#/VOLUME] IN BLOOD BY AUTOMATED COUNT 0.85 10*3/u L 0.00 - 0.60 09/07 H Specimen Type: BLOOD No comment entered. Ordering Provider: JAYE BULL Report Released Date/Time: Sep 08, 2023 10:30 AM Reporting Lab: [place] [phone] Performing Lab: [place] [phone] [facility] AUTOMATED DIFF GRANULOCYTE S [#/VOLUME] IN BLOOD BY AUTOMATED COUNT 8.95 10*3/u L 1.40 - 6.50 09/07 H Specimen Type: BLOOD No comment entered. Ordering Provider: JAYE BULL Report Released Date/Time: Sep 08, 2023 10:30 AM Reporting Lab: [place] [phone] Performing Lab: [place] [phone] [facility] AUTOMATED DIFF BASOPHILS/1 00 LEUKOCYTES IN BLOOD BY AUTOMATED COUNT 0.5 0.0 - 3.0 09/07 Specimen Type: BLOOD No comment entered. Ordering Provider: JAYE BULL Report Released Date/Time: Sep 08, 2023 10:30 AM Reporting Lab: [address] [address] Performing Lab: [place] [phone] [place] [facility] AUTOMATED DIFF BASOPHILS [#/VOLUME] IN BLOOD BY AUTOMATED COUNT 0.06 10*3/u L 0.00 - 0.20 09/07 Specimen Type: BLOOD No comment entered. Ordering Provider: JAYE BULL Report Released Date/Time: Sep 08, 2023 10:30 AM Reporting Lab: [place] [phone] Performing Lab: [address] AUTOMATED DIFF EOSINOPHILS /100 LEUKOCYTES IN BLOOD BY AUTOMATED COUNT 3.6 0.0 - 10.0 09/07 Specimen Type: BLOOD No comment entered. Ordering Provider: JAYE BULL Report Released Date/Time: Sep 08, 2023 10:30 AM Reporting Lab: [place] [phone] Performing Lab: [place] [phone] [place], [place] [address] DIFF EOSINOPHILS [#/VOLUME] IN BLOOD BY AUTOMATED COUNT 0.47 10*3/u L 0.00 - 0.70 09/07 Specimen Type: BLOOD No comment entered. Ordering Provider: JAYE BULL Report Released Date/Time: Sep 08, 2023 10:30 AM Reporting Lab: [address] Performing Lab: [address] AUTOMATED DIFF IMMATURE GRANULOCYTE S/100 LEUKOCYTES IN BLOOD 0.5 0.0 - 0.5 09/07 Specimen Type: BLOOD No comment entered. Ordering Provider: JAYE BULL Report Released Date/Time: Sep 08, 2023 10:30 AM Reporting Lab: [place] [phone] Performing Lab: [place] [phone] [place] [facility] AUTOMATED DIFF IMMATURE GRANULOCYTE S [#/VOLUME] IN BLOOD 0.06 10*3/u L 0.00 - 0.06 03/21 /2024 Specimen Type: BLOOD No comment entered. Ordering Provider: JAYE BULL Report Released Date/Time: Sep 08, 2023 10:30 AM Reporting Lab: [address] [address] Performing Lab: [place] [phone] [place] CBC/PLT LEUKOCYTES [#/VOLUME] IN BLOOD BY AUTOMATED COUNT 13.1 10*3/u L 5.0 - 10.0 09/07 H Specimen Type: BLOOD No comment entered. Ordering Provider: JAYE BULL Report Released Date/Time: Sep 08, 2023 10:30 AM Reporting Lab: [address] [address] Performing Lab: [place] [address] [place] [facility] CBC/PLT ERYTHROCYTE S [#/VOLUME] IN BLOOD BY AUTOMATED COUNT 4.92 10*6/u L 4.6 - 6.2 09/07 Specimen Type: BLOOD No comment entered. Ordering Provider: JAYE BULL Report Released Date/Time: Sep 08, 2023 10:30 AM Reporting Lab: [address] [address] Performing Lab: [place] [phone] [place] CBC/PLT HEMOGLOBIN [MASS/VOLUM E] IN BLOOD 14.7 g/dL 14.0 - 18.0 09/07 Specimen Type: BLOOD No comment entered. Ordering Provider: JAYE BULL Report Released Date/Time: Sep 08, 2023 10:30 AM Reporting Lab: [place] [phone] Performing Lab: [place] [phone] [place], [place] [address] [facility] CBC/PLT HEMATOCRIT [VOLUME FRACTION] OF BLOOD BY AUTOMATED COUNT 46.1 42.0 - 52.0 09/07 Specimen Type: BLOOD No comment entered. Ordering Provider: JAYE BULL Report Released Date/Time: Sep 08, 2023 10:30 AM Reporting Lab: [place] [phone] Performing Lab: [address] [facility] CBC/PLT MCV [ENTITIC VOLUME] BY AUTOMATED COUNT 93.7 fL 80.0 - 94.0 09/07 Specimen Type: BLOOD No comment entered. Ordering Provider: JAYE BULL Report Released Date/Time: Sep 08, 2023 10:30 AM Reporting Lab: [place] [address] Performing Lab: [address] [facility] CBC/PLT MCH [ENTITIC MASS] BY AUTOMATED COUNT 29.9 pg 27.0 - 31.0 09/07 Specimen Type: BLOOD No comment entered. Ordering Provider: JAYE BULL Report Released Date/Time: Sep 08, 2023 10:30 AM Reporting Lab: [place] [address] Performing Lab: [place] [phone] [facility] CBC/PLT MCHC [MASS/VOLUM E] BY AUTOMATED COUNT 31.9 g/dL 32.0 - 36.0 09/07 L Specimen Type: BLOOD No comment entered. Ordering Provider: JAYE BULL Report Released Date/Time: Sep 08, 2023 10:30 AM Reporting Lab: [place] [phone] Performing Lab: [place] [phone] [facility] CBC/PLT PLATELETS [#/VOLUME] IN BLOOD 229 10*3/u L 150 - 450 09/07 Specimen Type: BLOOD No comment entered. Ordering Provider: JAYE BULL Report Released Date/Time: Sep 08, 2023 10:30 AM Reporting Lab: [address] [address] Performing Lab: [address] [phone] [facility] CBC/PLT PLATELET MEAN VOLUME [ENTITIC VOLUME] IN BLOOD 9.7 fL 9.0 - 13.1 09/07 Specimen Type: BLOOD No comment entered. Ordering Provider: JAYE BULL Report Released Date/Time: Sep 08, 2023 10:30 AM Reporting Lab: [address] [address] Performing Lab: [address] [address] [facility] CBC/PLT ERYTHROCYTE DISTRIBUTIO N WIDTH [ENTITIC VOLUME] BY AUTOMATED COUNT 14.5 11.0 - 16.0 09/07 Specimen Type: BLOOD No comment entered. Ordering Provider: JAYE BULL Report Released Date/Time: Sep 08, 2023 10:30 AM Reporting Lab: [address] [phone] Performing Lab: [address] [phone] [facility] CBC/PLT NUCLEATED ERYTHROCYTE S/100 ERYTHROCYTE S IN BLOOD 0.0 0.0 - 0.0 09/07 Specimen Type: BLOOD No comment entered. Ordering Provider: JAYE BULL Report Released Date/Time: Sep 08, 2023 10:30 AM Reporting Lab: [address] [phone] Performing Lab: [address] [address] [facility] Encounters Combined list of: 1) Encounters from Department of Veterans Affairs facilities going backup to the last 18 months, not all VA inpatient encounters are included; 2) Encounters from the Department of Defense facilities going backup to 280 months. Location Location Details Encounter Type Encounter Number Reason For Visit Attending Provider ADM Date DC Date Status Disposition Source [facility] SELF-MGMT EDUC & [place] 1 [place] [id number] Diagnos is: ICD-10- CM J44.9 Chronic obstruc tive pulmona ry disease , unspeci fied SABA COFFEY N 08/11 [place] [facility] Outpatient Encounter [id number] 08/16 [place] [facility] En[facility] [id number] 08/16 [place] [facility] HC PRO PHONE CALL 21-30 MIN [id number] Diagnos is: ICD-10- CM J44.9 Chronic obstruc tive pulmona ry disease , unspeci fied SABA COFFEY N 08/22 [place] [facility] Outpatient Encounter [id number] 09/01 [place] [facility] HC PRO PHONE CALL 11-20 MIN [id number] Diagnos is: ICD-10- CM J44.9 Chronic obstruc tive pulmona ry disease , unspeci fied SABA COFFEY N 09/05 [place] [facility] Outpatient Encounter [id number] EDUARDO BOYD 09/06 [place] [facility] OFFICE O/P EST HI 40 MIN [id number] Diagnos is: ICD-10- CM R06.00 Dyspnea , unspeci fied GEETHA MONTOYA F 09/07 [place] [facility] AIRWAY INHALATION TREATMENT [id number] Diagnos is: ICD-10- CM J44.9 Chronic obstruc tive pulmona ry disease , unspeci fied JESUS SKY R 09/07 [place] [facility] Outpatient Encounter [id number] 09/12 [place] Out[facility] Encounter [id number] 09/19 [place] Outpatient Encounter [id number] 09/26 [place] [facility] HC PRO PHONE CALL 11-20 MIN [id number] Diagnos is: ICD-10- CM J44.9 Chronic obstruc tive pulmona ry disease , unspeci fied GARCÍA FAROOQ 10/13 [place] [facility] CASE MANAGEMENT [id number] Diagnos is: ICD-10- CM Z71.89 Other specifi ed memorial counselor JARROD Mckenna 11/21 [place] [facility] Outpatient Encounter [id number] DOMINIQUE RANKIN 11/22 [place] [facility] HC PRO PHONE CALL 21-30 MIN [id number] Diagnos is: ICD-10- CM Z74.2 Need for assist at home and no house memb able to render care DOMINIQUE RANKIN 11/22 [place] [facility] HC PRO PHONE CALL 5-10 MIN [id number] Diagnos is: ICD-10- CM Z71.0 Prsn encntr hlth serv to consult on behalf of another person MARLENI PRECIADO 11/22 [place] [facility] Outpatient Encounter [id number] 11/27 [place] [facility] HC PRO PHONE CALL 21-30 MIN [id number] Diagnos is: ICD-10- CM Z71.0 Prsn encntr hlth serv to consult on behalf of another person KEVIN SOTO 11/27 [place] [facility] Outpatient Encounter [id number] 11/28 [place] [facility] Outpatient Encounter [id number] 11/29 [place] [facility] HC PRO PHONE CALL 21-30 MIN [id number] Diagnos is: ICD-10- CM Z02.89 Encount er for other adminis trative examina tions KEVIN SOTO 12/08 [place] [facility] Outpatient Encounter [id number] 12/08 [place] [facility] Outpatient Encounter [id number] 12/25 [place] [facility] OFF/OP EST MAY X REQ PHY/QHP [id number] Diagnos is: ICD-10- CM J44.9 Chronic obstruc tive pulmona ry disease , unspeci fied MARION,ME JAVED L 12/27 [place] [facility] Outpatient Encounter [id number] 12/28 [place] [facility] [facility] En[facility] [id number] 12/28 [place] [facility] OFFICE O/P EST MOD 30 MIN [id number] Diagnos is: ICD-10- CM J45.50 Severe persist ent asthma, uncompl icated POLO LEAHY R N 12/28 [place] [facility] Outpatient Encounter [id number] 01/01 [place] [facility] Outpatient Encounter [id number] 01/12 [place] [facility] Outpatient Encounter [id number] 01/19 [place] [facility] HC PRO PHONE CALL 5-10 MIN [id number] Diagnos is: ICD-10- CM Z02.89 Encount er for other adminis trative examina GOPAL Egan 01/19 [place] [facility] Outpatient Encounter [id number] 01/22 [place] Outpatient Encounter [id number] 03/13 [place] [facility] Outpatient Encounter [id number] 04/05 [place] Outpatient Encounter [id number] 04/06 [place] OFFICE O/P EST HI 40 MIN [id number] Diagnos is: ICD-10- CM J45.50 Severe persist ent asthma, uncompl icated KELLEN MONTOYA 04/19 [place] [facility] MEAS[facility] BLOOD OXYGEN LEVEL [id number] Diagnos is: ICD-10- CM J44.9 Chronic obstruc tive pulmona ry disease , unspeci fied CINDA,HANNAH RI E 04/19 [place] Outpatient Encounter [id number] 04/23 [place] [facility] Outpatient Encounter [id number] 06/19 [place] TTE W/DOPPLER COMPLETE [id number] Diagnos is: ICD-10- CM Z13.6 Encount er for screeni ng for cardiov ascular disorde JUSTIN Malik R 07/12 [place] Outpatient Encounter [id number] 07/13 [place] Outpatient Encounter [id number] 07/16 [place] Outpatient Encounter [id number] 07/17 [place] [facility] Outpatient Encounter [id number] 08/08 [place] SYNCH AUDIO-ONLY EST MOD 30 [id number] Diagnos is: ICD-10- CM J45.40 Moderat e persist ent asthma, uncompl icated ARVIND LIPSCOMB 08/09 [place] PT EDUCATION NOC INDIVID [id number] Diagnos is: ICD-10- CM J44.9 Chronic obstruc tive pulmona ry disease , unspeci fied EBER,ME SANON L 09/06 [place] PH1 ASSMT&MGMT NQHP - [id number] Diagnos is: ICD-10- CM G47.33 Obstruc tive sleep apnea (adult) (pediat juana) JESUS SKY DARSHANARafi Jacinda 09/07 [place] Outpatient Encounter [id number] Diagnos is: ICD-10- CM G47.33 Obstruc tive sleep apnea (adult) (pediat juana) MIKE DIAL 12/07 [place] [facility] PH1 ASSMT&MGMT NQHP 11-20 [id number] Diagnos is: ICD-10- CM Z74.1 Need for assista nce with persona ROGERIO Garduno 12/12 [place] [facility] Outpatient Encounter [id number] 01/11 [place] PH1 ASSMT&MGMT NQHP 5-10 [id number] Diagnos is: ICD-10- CM Z71.0 Prsn encntr hlth serv to consult on behalf of another person KEVIN SOTO 01/14 [place] [facility] Outpatient Encounter [id number] 01/15 [place] Social History Combined list of available smoking, tobacco, and other social history from [facility] and [facility] facilities. Social History Type Response Date Comment [facility] Tobacco smoking status NHIS ID-TOBACCO FORMER USER 11/23/2022 [facility] History of tobacco use ID-TOBACCO QUIT 15 YRS OR MORE 11/23/2022 [facility] History of tobacco use ID-TOBACCO FORMER USER 10/16/2021 [facility] History of tobacco use ID-TOBACCO FORMER USER 09/11/2020 [facility] History of tobacco use VA-TOBACCO QUIT 5 TO < 15 YRS 05/07/2019 [facility] History of tobacco use V9 QUIT TOBACCO >12 MO and <7 YRS AGO 03/12/2010 [facility] History of tobacco use V9 QUIT TOBACCO IN THE LAST 12 MONTHS 02/16/2008 [facility] History of tobacco use V9 CURRENT TOBACCO USER 10/06/2006 [facility] History of tobacco use V9 CURRENT TOBACCO USER 07/01/2006 [facility] History of tobacco use HF V9 CURRENT SMOKER 07/02/2005 1ppd [facility] History of tobacco use NON-TOBACCO USER 12/25/1998 [facility] History of tobacco use NON-TOBACCO USER 01/17/1998 [facility] Plan of Care List of future care activities from Department [facility] facilities[facility] Additional future care activities may be listed in the Assessment and Plan section. Date/Time Care Activity Care Activity Detail Facili ty 03/25/2025 AMBULATORY - MEDICINE AMBULATORY - MEDICI NE [facility]
--- NOTE | 2025-02-02 20:53 | ECG_ITS ---
APPROVED REPORT Exam: Resting ECG HR:89 bpm ECG Measurements Heart Rate 89 AXES [place] 196 P 30 QRSd 171 QRS -29 QT 435 T -9 QTc 481 Conclusion SINUS RHYTHM WITH OCCASIONAL VENTRICULAR PREMATURE COMPLEXES WITH FREQUENT SUPRAVENTRICULAR PREMATURE COMPLEXES BORDERLINE LEFT AXIS DEVIATION [QRS AXIS < -20] RIGHT BUNDLE BRANCH BLOCK [120+ ms QRS DURATION, UPRIGHT V1, 40+ ms S IN I/aVL/V4/V5/V6] ABNORMAL ECG UNCONFIRMED REPORT Normal sinus rhythm with PVCs. Right bundle branch block. No ST elevation or depression. Electronically signed by : BRIELLE PENALOZA, 02/02/2025 22:32:28
--- NOTE | 2025-02-02 20:59 | HMH.EDGENADL ---
Discharge Plan Disposition Patient Disposition: Home, Self-Care Condition: Good Prescriptions Prescriptions: No Action tamsulosin 0.4 mg capsule 0.4 mg PO DAILY albuterol sulfate 90 mcg/actuation HFA aerosol inhaler 2 puff IH Q6HP PRN (Reason: shortness of breath) Humulin R U-500 (Conc) Kwikpen 500 unit/mL (3 mL) insulin pen 70 unit SQ QACBREAK Rx Instructions: 50 units in PM azithromycin 250 mg tablet See Rx Instructions PO .COMPLEX Qty: 6 0RF Rx Instructions: For 250 mg dose pack: take 500 mg today (day 1), then 250 mg for 4 days (days 2-5) PO benzonatate 100 mg capsule 100 mg PO TID PRN (Reason: cough) Qty: 30 0RF guaifenesin [Mucinex] 1,200 mg tablet extended release 12hr 1,200 mg PO BID Qty: 20 0RF Brilinta 90 mg tablet 90 mg PO BID Qty: 60 11RF losartan 100 mg tablet See Rx Instructions .ROUTE .COMPLEX Qty: 90 1RF Dose Instruction: TAKE ONE TABLET BY MOUTH ONCE A DAY Rx Instructions: TAKE ONE TABLET BY MOUTH ONCE A DAY bisoprolol fumarate 5 mg tablet See Rx Instructions .ROUTE .COMPLEX Qty: 30 2RF Dose Instruction: TAKE 1 TABLET BY MOUTH ONCE A DAY Rx Instructions: TAKE 1 TABLET BY MOUTH ONCE A DAY gabapentin 600 MG tablet 1,200 mg PO TID Patient Comments: TAKE 2 TABLETS BY MOUTH THREE TIMES DAILY fluoxetine 20 mg capsule 40 mg PO DAILY pantoprazole 40 mg tablet,delayed release (DR/EC) 40 mg PO DAILY PRN (Reason: GERD) duloxetine 20 mg capsule,delayed release(DR/EC) 20 mg PO DAILY Asmanex HFA 200 mcg/actuation Hfa Aerosol Inhaler 2 puff INHALATION BID Stiolto Respimat 2.5-2.5 mcg/actuation Mist 2 puff INHALATION DAILY aspirin 81 mg Tablet,Delayed Release (Dr/Ec) 81 mg PO DAILY Qty: 30 0RF atorvastatin 40 mg Tablet 40 mg PO HS Qty: 30 0RF amlodipine 10 mg tablet 10 mg PO DAILY PRN (Reason: Hypertension) Referrals Follow up/Referrals: Jose Thurman II, MD [Primary Care Provider, Medical] - See instructions Activity Restrictions/Add. Instructions Additional Instructions/Restrictions: You were evaluated in the ER and are believed to be appropriate for discharge at this time. Continue taking your home medications as prescribed. Follow-up with the cardiology office as scheduled at 9 AM on 02/04/2025. Make an appointment to follow-up with your primary care doctor as well. Return to the ER with any new, worsening, or otherwise concerning symptoms. Clinical Impressions Clinical Impression: Chest pain Print Language Print Language: Uzbek Discharge ED Provider: Gonzalez Kendall General Adult HPI <Gonzalez Kendall MD - Last Filed: 02/02/25 23:20> General Chief complaint: Chest Pain Stated complaint: Chest Pain Time Seen by Provider: 02/02/25 20:59 History of Present Illness HPI narrative: Catarino Allen is a 69 male with a history of hypertension, hyperlipidemia, diabetes, obstructive sleep apnea, COPD, [place] 2 years ago status post coronary stenting on aspirin and ticagrelor who presents to the emergency department for complaints of elevated blood pressures as well as transient chest pain and headache. Patient states that he exerted himself slightly more than normal today and swept and mop the floors of the first floor of the house. He did state that at times he had to stop and catch his breath, which is not abnormal for him. He states that after dinner, he developed some mild midsternal chest pain that is since resolved. He also had a mild headache that is since resolved. He states that his blood pressures have been trending up recently, most recently with systolics in the 150s. They took his blood pressure at home and it was 160 and then 180 systolic. He states that he is not currently on any blood pressure medication but was taken off of it a while ago and was told that if his blood pressure continues to trend upward, he will likely have to go back on it. He states that he is followed by [facility] cardiology and had seen Dr. Sofia previously for his coronary stents. His primary care doctor is also at [facility]. Related Data Home Medications ?Medication ?Instructions ?Recorded ?Confirmed gabapentin 600 mg tablet 1,200 mg PO TID NEUROPATHY 04/29/19 10/09/24 albuterol sulfate 90 mcg/actuation 2 puff inhalation Q6HP PRN 01/28/22 10/09/24 aerosol inhaler shortness of breath tamsulosin 0.4 mg capsule 0.4 mg PO DAILY PROSTATE 01/28/22 10/09/24 duloxetine 20 mg capsule,delayed 20 mg PO DAILY Depression 05/29/22 10/09/24 release mometasone 200 mcg/actuation HFA 2 puff inhalation BID Breathing 05/30/22 10/09/24 aerosol inhaler (Asmanex HFA) problems tiotropium 2.5 mcg-olodaterol 2.5 2 puff inhalation DAILY soa 05/30/22 10/09/24 mcg/actuation mist for inhalation (Stiolto Respimat) amlodipine 10 mg tablet 10 mg PO DAILY PRN Hypertension 06/16/22 10/09/24 fluoxetine 20 mg capsule 40 mg PO DAILY Depression 06/16/22 10/09/24 insulin regular hum U-500 conc 500 70 unit SQ QACBREAK 06/16/22 10/09/24 unit/mL(3 mL) subcut pen (Humulin R U-500 (Conc) Insulin Kwikpen) pantoprazole 40 mg tablet,delayed 40 mg PO DAILY PRN GERD 06/16/22 10/09/24 release Previous Rx's ?Medication ?Instructions ?Recorded aspirin 81 mg tablet,delayed 81 mg PO DAILY #30 tabs 05/31/22 release atorvastatin 40 mg tablet 40 mg PO HS #30 tabs 05/31/22 ticagrelor 90 mg tablet (Brilinta) 90 mg PO BID #60 tabs 07/26/22 losartan 100 mg tablet See Rx Instructions .Route 09/22/22 .COMPLEX #90 tabs bisoprolol fumarate 5 mg tablet See Rx Instructions .Route 06/28/23 .COMPLEX #30 tabs azithromycin 250 mg tablet See Rx Instructions PO .COMPLEX #6 10/09/24 tabs benzonatate 100 mg capsule 100 mg PO TID PRN cough #30 caps 10/09/24 guaifenesin 1,200 mg tablet, 1,200 mg PO BID #20 tabs 10/09/24 extended release 12 hr (Mucinex) Allergies Allergy/AdvReac Type Severity Reaction Status Date / Time aspirin (ASPIRIN) Allergy Severe Anaphylaxis Verified 10/09/24 15:18 NSAIDS (Non-Steroidal Allergy Severe Anaphylaxis Verified 10/09/24 15:18 Anti-Inflamma (NSAIDS (NON-STEROIDAL ANTI-INFLAMMA) Sulfa (Sulfonamide Allergy Intermediate Rash Verified 10/09/24 15:18 Antibiotics) (SULFA (SULFONAMIDE ANTIBIOTICS)) [facility] <Gonzalez Kendall MD - Last Filed: 02/02/25 23:20> [facility] Disclaimer: The information contained in this section may have been updated after the patient was seen, as this information can be updated by other users. 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 (Updated 02/02/25 @ 22:20 by Gonzalez Kendall MD) Sinusitis BMI 40.0-44.9, adult Shingles SARAI (obstructive sleep apnea) COPD (chronic obstructive pulmonary disease) HLD (hyperlipidemia) HTN (hypertension) Diabetes Surgical History H/O colonoscopy S/P cervical spinal fusion S/P left rotator cuff repair History of total left knee replacement Family History Mother , Mother in her early 60s Pancreatic cancer Father , Father at 68 COPD (chronic obstructive pulmonary disease) Social History Smoking Status: Never smoker alcohol intake: never current occupational status: other Travel in the last 8 weeks?: None Have you lived/traveled outside [place] in past 30 days?: No Contact w/someone who lives/traveled outside US past 30 days?: No Exposure to someone with infectious disease in past 14 days?: No Do you have a fever (greater than 100.4 F or 38 C)?: No Have you tested positive for COVID-19?: No Exposed to someone with COVID-19 in past 14 days?: No Do you have a sore throat?: No Do you have a cough?: No Do you have any weakness?: No Do you have any diarrhea?: No Are you experiencing any unusual bleeding?: No Do you have any muscle aches/pain?: No Do you have any abdominal pain?: No Are you experiencing loss of taste or smell?: No Other 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 Have you received the Flu Vaccine for this season: No Have you received the Pneumonia Vaccine: Yes <Gonzalez Kendall MD - Last Filed: 02/02/25 23:20> ROS Obtained: Yes Systems reviewed as appropriate & no additional complaints except as documented Physical Exam <Gonzalez Kendall MD - Last Filed: 02/02/25 23:20> General General appearance: alert, in no apparent distress and obese Head Head exam: atraumatic Eye Eye exam: Present normal appearance ENT ENT exam: Present normal external ear exam Neck Neck exam: Present full ROM Chest Chest inspection: Present symmetric chest wall rise Respiratory Respiratory exam: Present normal lung sounds bilaterally; Absent respiratory distress Cardiovascular Cardiovascular exam: Present regular rate and normal rhythm Abdominal Exam Abdominal exam: Present soft; Absent tenderness or guarding exam: Present deferred Extremities Exam Extremities exam: Present normal inspection Back Exam Back exam: Present normal inspection Neurological Exam Neurological exam: Present alert and oriented X3 Psychiatric Psychiatric exam: Present normal affect Skin Skin exam: Present warm and dry Medical Decision Making <Gonzalez Kendall MD - Last Filed: 02/02/25 23:20> Medical Records Screening: Per USPSTF and CDC recommendations, given the prevalence of disease in our region, it is our hospital?s policy to screen for HIV and viral Hepatitis for all patients aged 18 and over and those with ongoing risk factors. Silvino Inquiry Pt receiving controlled substance: No Vital Signs: 02/02/25 20:57 02/02/25 21:01 02/02/25 22:00 Temperature 97.5 F L Temperature Source Oral Pulse Rate 78 79 Pulse Rate [Radial] 78 Respiratory Rate 16 14 15 Blood Pressure 162/84 H 152/77 H Blood Pressure [Right Arm] 161/74 H Blood Pressure Mean [Right Arm] 103 Blood Pressure Position 02 Sat by Pulse Oximetry 94 L 95 96 Oxygen Delivery Method Room Air 02/02/25 22:31 02/02/25 22:33 02/02/25 23:01 Temperature 97.6 F Temperature Source Oral Pulse Rate 74 79 Pulse Rate [Radial] Respiratory Rate 16 16 Blood Pressure 128/56 L 152/77 H 119/100 H Blood Pressure [Right Arm] Blood Pressure Mean [Right Arm] Blood Pressure Position Supine 02 Sat by Pulse Oximetry 96 95 Oxygen Delivery Method Room Air 02/02/25 23:45 Temperature Temperature Source Pulse Rate Pulse Rate [Radial] Respiratory Rate 19 Blood Pressure 119/63 Blood Pressure [Right Arm] Blood Pressure Mean [Right Arm] Blood Pressure Position 02 Sat by Pulse Oximetry 98 Oxygen Delivery Method Lab Data Lab Results 02/02/25 20:53: WBC 12.0 H, RBC 4.79, Hgb 13.7 L, Hct 43.0, MCV 89.8, MCH 28.6, MCHC 31.9, RDW 14.4, Plt Count 235, MPV 10.2, Neut % (Auto) 70.6, Lymph % (Auto) 19.8, [place] % (Auto) 6.4, Eos % (Auto) 2.1, Baso % (Auto) 0.3, Neut # (Auto) 8.5 H, Lymph # (Auto) 2.4, [place] # (Auto) 0.8, Eos # (Auto) 0.3, Baso # (Auto) 0.0, Sodium 140, Potassium 3.8, Chloride 105, Carbon Dioxide 29, Anion Gap 9.8, BUN 17, Creatinine 1.00, Estimated Creat Clear 71, Estimated GFR 74, Est GFR ( Amer) 89, Glucose 113 H, Calcium 9.0, Total Bilirubin 0.7, AST 30, ALT 20, Alkaline Phosphatase 93, Troponin I < 0.01, NT-Pro-B Natriuret Pep 215 H, Total Protein 7.8, Albumin 4.7, Globulin 3.1, Albumin/Globulin Ratio 1.5, TSH 1.44, Free T4 1.16 02/03/25 00:09: Troponin I < 0.01 02/02/25 20:53 02/02/25 20:53 Orders (Tests/Meds): ORDERS Category Date Time Status CXR --portable [XR chest portable] Stat Exams 02/02/25 21:10 Completed BNP [NT Pro Brain Natriuretic Pep.] Stat Lab 02/02/25 20:53 Completed CBC w/Auto Diff [Complete Blood Count Auto Diff] Stat Lab 02/02/25 20:53 Completed CMP [Comprehensive Metabolic Panel] Stat Lab 02/02/25 20:53 Completed Free T4 (Free Thyroxine) Stat Lab 02/02/25 20:53 Completed TSH [Thyroid Stimulating Hormone] Stat Lab 02/02/25 20:53 Completed Troponin I Q3H Lab 02/03/25 00:09 Completed Troponin I Q3H Lab 02/03/25 03:15 Ordered Troponin I Stat Lab 02/02/25 20:53 Completed ECG Data Tracing #1: I reviewed this ECG and interpreted as documented below: Normal sinus rhythm. No ST elevation or depression. QTc 481. Unchanged from previous EKGs Medical Decision Narrative: Catarino Allen is a 69 male with a history of hypertension, hyperlipidemia, diabetes, obstructive sleep apnea, COPD, [place] 2 years ago status post coronary stenting on aspirin and ticagrelor who presents to the emergency department for complaints of elevated blood pressures as well as transient chest pain and headache. Patient states that he exerted himself slightly more than normal today and swept and mop the floors of the first floor of the house. He did state that at times he had to stop and catch his breath, which is not abnormal for him. He states that after dinner, he developed some mild midsternal chest pain that is since resolved. He also had a mild headache that is since resolved. He states that his blood pressures have been trending up recently, most recently with systolics in the 150s. They took his blood pressure at home and it was 160 and then 180 systolic. He states that he is not currently on any blood pressure medication but was taken off of it a while ago and was told that if his blood pressure continues to trend upward, he will likely have to go back on it. He states that he is followed by [facility] cardiology and had seen Dr. Sofia previously for his coronary stents. His primary care doctor is also at [facility]. On arrival, patient is hypertensive with blood pressure 161/74, heart rate within normal limits, breathing comfortably on room air with oxygen saturation 94% SpO2. Afebrile. Physical exam, as stated above, revealed overall well-appearing male in no distress. He is alert and answering questions appropriately. Cardiopulmonary exam reveals no murmurs or rubs. No wheezing, rales or rhonchi. Abdomen is soft, nontender nondistended. No focal neurological deficits. Differential diagnosis includes, but is not limited to: ACS, aortic dissection, pericarditis, pneumonia, pleural effusion, hypertensive emergency, electrolyte derangement, hyperthyroidism, among others. The most morbid conditions were considered and workup was based on these. Workup in the emergency department included: Chest x-ray, EKG, troponin, BNP, CBC, CMP, TSH/free T4 Chest x-ray interpreted by me personally. No focal consolidations, no pleural effusions. Consistent cardiomegaly. No widening of the mediastinum compared to previous studies. See final radiology report for details. EKG showed normal sinus rhythm with PVCs and right bundle branch block and upsloping ST segments in V2, but no evidence of acute ischemia. Appears similar to previous EKGs. Laboratory studies show mild leukocytosis of 12 (however this does appear to be close to patient's baseline), no anemia, platelets within normal limits, CMP unremarkable and nonactionable with normal electrolytes and no NICOLAS, glucose normal at 113. Liver enzymes and bilirubin within normal limits. Initial troponin less than 0.01. BNP mildly elevated 215 but at baseline. Thyroid studies within normal limits. The patient was placed in observation status at 1018pm. Medical necessity for observational status is serial troponins. The patient was provided serial reevaluations and cardiac monitoring while awaiting results. Patient's care was handed off to the oncoming physician, Dr. Haas, pending repeat troponin. <Desiree Haas MD - Last Filed: 02/03/25 01:16> Vital Signs: 02/02/25 20:57 02/02/25 21:01 02/02/25 22:00 Temperature 97.5 F L Temperature Source Oral Pulse Rate 78 79 Pulse Rate [Radial] 78 Respiratory Rate 16 14 15 Blood Pressure 162/84 H 152/77 H Blood Pressure [Right Arm] 161/74 H Blood Pressure Mean [Right Arm] 103 Blood Pressure Position 02 Sat by Pulse Oximetry 94 L 95 96 Oxygen Delivery Method Room Air 02/02/25 22:31 02/02/25 22:33 02/02/25 23:01 Temperature 97.6 F Temperature Source Oral Pulse Rate 74 79 Pulse Rate [Radial] Respiratory Rate 16 16 Blood Pressure 128/56 L 152/77 H 119/100 H Blood Pressure [Right Arm] Blood Pressure Mean [Right Arm] Blood Pressure Position Supine 02 Sat by Pulse Oximetry 96 95 Oxygen Delivery Method Room Air 02/02/25 23:45 Temperature Temperature Source Pulse Rate Pulse Rate [Radial] Respiratory Rate 19 Blood Pressure 119/63 Blood Pressure [Right Arm] Blood Pressure Mean [Right Arm] Blood Pressure Position 02 Sat by Pulse Oximetry 98 Oxygen Delivery Method Lab Data Lab Results 02/02/25 20:53: WBC 12.0 H, RBC 4.79, Hgb 13.7 L, Hct 43.0, MCV 89.8, MCH 28.6, MCHC 31.9, RDW 14.4, Plt Count 235, MPV 10.2, Neut % (Auto) 70.6, Lymph % (Auto) 19.8, [place] % (Auto) 6.4, Eos % (Auto) 2.1, Baso % (Auto) 0.3, Neut # (Auto) 8.5 H, Lymph # (Auto) 2.4, [place] # (Auto) 0.8, Eos # (Auto) 0.3, Baso # (Auto) 0.0, Sodium 140, Potassium 3.8, Chloride 105, Carbon Dioxide 29, Anion Gap 9.8, BUN 17, Creatinine 1.00, Estimated Creat Clear 71, Estimated GFR 74, Est GFR ( Amer) 89, Glucose 113 H, Calcium 9.0, Total Bilirubin 0.7, AST 30, ALT 20, Alkaline Phosphatase 93, Troponin I < 0.01, NT-Pro-B Natriuret Pep 215 H, Total Protein 7.8, Albumin 4.7, Globulin 3.1, Albumin/Globulin Ratio 1.5, TSH 1.44, Free T4 1.16 02/03/25 00:09: Troponin I < 0.01 Orders (Tests/Meds): ORDERS Category Date Time Status CXR --portable [XR chest portable] Stat Exams 02/02/25 21:10 Completed BNP [NT Pro Brain Natriuretic Pep.] Stat Lab 02/02/25 20:53 Completed CBC w/Auto Diff [Complete Blood Count Auto Diff] Stat Lab 02/02/25 20:53 Completed CMP [Comprehensive Metabolic Panel] Stat Lab 02/02/25 20:53 Completed Free T4 (Free Thyroxine) Stat Lab 02/02/25 20:53 Completed TSH [Thyroid Stimulating Hormone] Stat Lab 02/02/25 20:53 Completed Troponin I Q3H Lab 02/03/25 00:09 Completed Troponin I Q3H Lab 02/03/25 03:15 Ordered Troponin I Stat Lab 02/02/25 20:53 Completed Medical Decision Narrative: Catarino Allen is a 69 male with a history of hypertension, hyperlipidemia, diabetes, obstructive sleep apnea, COPD, [place] 2 years ago status post coronary stenting on aspirin and ticagrelor who presents to the emergency department for complaints of elevated blood pressures as well as transient chest pain and headache. Patient states that he exerted himself slightly more than normal today and swept and mop the floors of the first floor of the house. He did state that at times he had to stop and catch his breath, which is not abnormal for him. He states that after dinner, he developed some mild midsternal chest pain that is since resolved. He also had a mild headache that is since resolved. He states that his blood pressures have been trending up recently, most recently with systolics in the 150s. They took his blood pressure at home and it was 160 and then 180 systolic. He states that he is not currently on any blood pressure medication but was taken off of it a while ago and was told that if his blood pressure continues to trend upward, he will likely have to go back on it. He states that he is followed by [facility] cardiology and had seen Dr. Soifa previously for his coronary stents. His primary care doctor is also at [facility]. On arrival, patient is hypertensive with blood pressure 161/74, heart rate within normal limits, breathing comfortably on room air with oxygen saturation 94% SpO2. Afebrile. Physical exam, as stated above, revealed overall well-appearing male in no distress. He is alert and answering questions appropriately. Cardiopulmonary exam reveals no murmurs or rubs. No wheezing, rales or rhonchi. Abdomen is soft, nontender nondistended. No focal neurological deficits. Differential diagnosis includes, but is not limited to: ACS, aortic dissection, pericarditis, pneumonia, pleural effusion, hypertensive emergency, electrolyte derangement, hyperthyroidism, among others. The most morbid conditions were considered and workup was based on these. Workup in the emergency department included: Chest x-ray, EKG, troponin, BNP, CBC, CMP, TSH/free T4 Chest x-ray interpreted by me personally. No focal consolidations, no pleural effusions. Consistent cardiomegaly. No widening of the mediastinum compared to previous studies. See final radiology report for details. EKG showed normal sinus rhythm with PVCs and right bundle branch block and upsloping ST segments in V2, but no evidence of acute ischemia. Appears similar to previous EKGs. Laboratory studies show mild leukocytosis of 12 (however this does appear to be close to patient's baseline), no anemia, platelets within normal limits, CMP unremarkable and nonactionable with normal electrolytes and no NICOLAS, glucose normal at 113. Liver enzymes and bilirubin within normal limits. Initial troponin less than 0.01. BNP mildly elevated 215 but at baseline. Thyroid studies within normal limits. The patient was placed in observation status at 1018pm. Medical necessity for observational status is serial troponins. The patient was provided serial reevaluations and cardiac monitoring while awaiting results. Patient's care was handed off to the oncoming physician, Dr. Haas, pending repeat troponin. Haas: Upon my assumption of care patient is stable and resting comfortably. He reports being completely asymptomatic at this time. I agree with the assessment and plan from Dr. Kendall. Repeat troponin also undetectably low less than 0.01. Is not had any acute abnormalities while on the court monitor, he has remained stable and asymptomatic. I believe he is appropriate for discharge at this time and he is comfortable with this plan. He was provided an 9 AM appointment with the cardiology office on 02/04/2025 through our ER cardiology follow-up appointment book. He is going to go to this appointment and also follow-up with his personal flight crew time clerk. He was given instructions on continued symptomatic monitoring and management, follow-up, and strict return precautions for the ER. He and family at bedside indicated understanding and the patient was discharged in stable condition. I had [id number] discussion with this patient providing education and instructions at the time of discharge. I spent less than 30 minutes preparing for this discharge. Total time in ED observation: 2 hours 55 minutes Critical Care <Gonzalez Kendall MD - Last Filed: 02/02/25 23:20> Critical Care Time Critical Care Time: No
--- OUTSIDE RECORDS SUMMARY | 2025-02-02 20:59 | XMS_ITS | Clinical Summary ---
Author Organization [facility] Address [address] [place] [address] Care Team Providers Care Film Coater Name Role Phone Fritz Leung MD Unavailable [phone] Jose Thurman MD Primary Care Provider [phone] Allergies Active Allergy Reactions Criticality Noted Date [...] THREE TIMES DAILY Active Advocate Insulin Pen [place] 31G X 8 MM [facility] 2 Active HumuLIN R U-500 KWIKPEN 500 [...] (11/04/2022): Added automatically from request for surgery [id number] Encounters Date Type Department Care Team Description 12/24/2024 Telephone [facility] [address] [place] [address] Yvon Monteiro MD Appt Changes from Last 3 Months Family History 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 Relation Name Comments Diabetes Mother Pancreatic cancer Mother COPD Other Diabetes Other Emphysema Other Hypertension Other Pancreatic cancer Other Anesthesia problems Neg Hx Malig Hyperthermia Neg Hx Relation Name Status Comments Mother Other Social History Tobacco Use Types Packs/Day Years Used Date Smoking Tobacco: Former Cigarettes 2 10 2012 Tobacco Cessation:Counseling Given: Not Answered Alcohol [...] Care Team (Late st Contact Info) Description 03/26/2025 2:00 PM EDT Office Visit Professional [facility] Nephrology, Bone & Mineral Metabolism [address], [address] [place] [address] Teresa Gil MD [address] [place] [address] 05/27/2025 1:50 PM EST Office Visit [facility] [address] [place] [address] Belinda Styles, TRANSITION SOCIAL WORKER, DNP [address] [place] [address] Health Maintenance Due Date Last Done Comments [facility]-Hepatitis C Screening 1954 [facility]-Infant/Child/Adol SDOH Screenings 1954 Diabetes: Dental Exam 1964 [facility]- SDOH Screenings 1972 [facility]-Adult SDOH Screenings 1972 CT Colonography 1999 Colonoscopy 1999 FIT-DNA 1999 FIT 1999 FOBT 1999 Sigmoidoscopy 1999 [facility]-Colorectal Cancer Screening 1999 [facility]-RSV Vaccine: 60+ Years or (1 - Risk 60-74 years 1-dose series) 2014 [facility]-Zoster Vaccines (2 of 3) 04/08/2015 02/11/2015 [facility]-Abdominal Aortic Aneurysm (AAA) Screening 2019 [id number] Vaccine ( season) 2024 01/26/2022, 11/10/2021, 05/29/2021, Additional history exists [facility]-Influenza Vaccine (#1) 02/18/202504/07, 04/23/2022, 03/20/2022, Additional history exists [facility]-Diabetes: Hemoglobin [...] age to complete this [place] [address] [facility] Care Teams Film Coater Relationship Specialty Start Date End Date Jose Thurman MD [address] [place] [address] PCP - General 01/26/23 Fritz Leung MD [address] [place] [address] Referring Physician 06/28/22
--- OUTSIDE RECORDS SUMMARY | 2025-02-02 21:00 | XMS_ITS | Clinical Summary ---
Author Organization [facility] Address [address] [place] [address] Phone Care Team Providers Care Showroom Salesperson Name Role Phone Catarino Ryan MD Primary Care Provider [phone] Allergies Active Allergy Reactions Criticality Noted Date [...] Sensor (DEXCOM G6 SENSOR) Misc Device by Saharey.(Non-Drug; Combo Route) route. Active ezetimibe (ZETIA) 10 [...] (01/29/2022): Added automatically from request for surgery [id number] Lower urinary tract symptoms due to benign prostatic hyperplasia 10/26/2021 Tear of left rotator cuff 09/28/2021 Overview (09/28/2021): Added automatically from request for surgery [id number] Chronic obstructive lung disease 06/30/2017 Chronic depression [...] Comments COPD (chronic obstructive pu lmonary disease) ([facility]) Hypertension Hyperlipidemia VA (myocardial infarction) ([facility]) age of 26 from being given wrong medication at hospital (Heparin) Edema BLE Diverticulosis Neuropathy Arthritis Diabetes 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 Urinary incontinence Oxygen dependent pt uses 2-3L O2 most of the time as of 10/23/21 Sleep apnea USES OXYGEN 2-3L /NC CONT Asthma Bronchitis, chronic (HCC) Irritable bowel syndrome Neuromuscular disorder ([facility]) Depression Anxiety disorder Chronic pain Family History [...] Comments Wellness Exam Medicare 1957 Lipids 1964 Diabetic Eye Exam 1972 Hepatitis C Screening 1972 Kidney Health: uACR 1972 Cologuard 1999 Colon Cancer Screening 1999 Colonoscopy 1999 FIT 1999 Sigmoidoscopy 1999 Virtual Colonography 1999 RSV or 60+ (1 - Risk 60-74 years 1-dose series) 2014 DTaP/TDaP/Td (2 - Td or Tdap) 12/02/2018 12/02/2008, 02/27/2007, 11/18/1996 AAA Screening 2019 Hemoglobin A1c 04/28/2022 10/26/2021 Kidney Health: eGFR 09/24/2022 09/24/2021 COVID-19 Vaccine ( season) 2024 04/19/2023, 04/21/2022, 01/26/2022, Additional history exists Influenza Vaccine (#1) 2025 , 04/07/2023, 05/10/2022, Additional history exists Zoster Completed 03/29/2019, 09/2018, 02/11/2015 Pneumococcal Vaccine 50+ Completed 022, 08/18/2021, 08/02/2020, Additional history exists Hepatitis B Vaccine Aged Out No longe r eligible based on patient's age to complete this topic Meningococcal B Vaccine Aged Out No l onger eligible based on patient's age to complete this topic Medical Devices Implanted Type Area Teleprinter Device Identifier Shelf Expiration Date Model / Serial / Lot Knee Right: Knee Lens Bilateral: Eye Bone Bank Bone For Fusion Neck [place] Sut Y-Knt Self-Pnch Ndl - [id number] Implanted:Qty : 1 on 12/01/2020 by Partha Kuo MD at [facility] Left: Shoulder CONMED:LINVATEC 07/22/2025 [id number] / / [id number] [place] Sut Y-Knt Self-Pnch Ndl - [id number] Implanted:Qty : 1 on 10/27/2021 by Partha Kuo MD at [facility] Left: Shoulder CONMED:LINVATEC 06/01/2026 [id number] / / [id number] Liner Tib Sz Gh/6-9 10mm Persn Lt Kn Art Ps Fx Bear Melina-E - [id number] Implanted:Qty : 1 on 02/02/2022 by Partha Kuo MD at [facility] Left: Knee VILMA:VILMA [id number] 02/02/2026 [id number] / / [id number] Cement Refobacin 1x40 Gm Hvisc Bn Gent Lf - [id number] Implanted:Qty : 1 on 02/02/2022 by Partha Kuo MD at [facility] Left: Knee VILMA:VILMA 12/18/2023 [id number] / / [id number] Patlr 35mm Blayne Persn Pe Melina-E Ps Kn - [id number] Implanted:Qty : 1 on 02/02/2022 by Partha Kuo MD at [facility] Left: Knee VILMA:VILMA [id number] 11/17/2028 [id number] / / [id number] Comp Fem Sz8 Std Persn Lt Kn Ps Blayne Cocr Por - [id number] Implanted:Qty : 1 on 02/02/2022 by Partha Kuo MD at [facility] Left: Knee VILMA:VILMA 07/02/2031 [id number] / / [id number] Baseplate Tib Sz-G Stm Lt Kn Blayne Persn Sugar Tiv [place] 5d - [id number] Implanted:Qty : 1 on 02/02/2022 by Partha Kuo MD at [facility] Left: Knee VILMA:VILMA [id number] 08/17/2031 [id number] / / [id number] Procedures Procedure Name Priority Date/Time Associated Diagnosis Comments COMPREHENSIVE METABOLIC PANEL Callback 09/24/2021 5:30 PM EDT Personal history of tobacco use, presenting hazards to health Personal history of surgery to heart and great vessels, presenting hazards to health Screening examination for poliomyelitis Screening for thyroid disorder Screening examination for venereal disease Pain in joint, multiple sites Myalgia Effusion of joint, multiple sites from Last 3 Months or Most Recently Relevant to Health Maintenance Results * (ABNORMAL) COMPREHENSIVE METABOLIC PANEL (09/24/2021 5:30 PM EDT) Sodium 136 136 - 145 mmol/L 09/24/2021 7:58 PM EDT [facility] Potassium 4.3 3.5 - 5.0 mmol/L 09/24/2021 7:58 PM EDT [facility] Chloride 99 98 - 107 mmol/L 09/24/2021 7:58 PM EDT [facility] Total CO2 24 22 - 29 mmol/L 09/24/2021 7:58 PM EDT [facility] Anion Gap 13 7 - 16 mmol/L 09/24/2021 7:58 PM EDT [facility] Calcium 9.2 8.8 - 10.4 mg/dL 09/24/2021 7:58 PM EDT [facility] Glucose Lvl 245(H) 82 - 100 mg/dL 09/24/2021 7:58 PM EDT [facility] BUN 18 8 - 23 mg/dL 09/24/2021 7:58 PM EDT [facility] Creatinine 0.82 0.67 - 1.30 mg/dL 09/24/2021 7:58 PM EDT [facility] Albumin 4.2 3.2 - 4.6 gm/dL 09/24/2021 7:58 PM EDT [facility] Total Protein 6.5 6.4 - 8.3 gm/dL 09/24/2021 7:58 PM EDT [facility] Bili Total 0.3 0.1 - 1.4 mg/dL 09/24/2021 7:58 PM EDT [facility] ALT 18 <=41 U/L 09/24/2021 7:58 PM EDT [facility] AST 18 <=40 U/L 09/24/2021 7:58 PM EDT [facility] Alk Phos 76 40 - 129 U/L 09/24/2021 7:58 PM EDT [facility] eGFR (CKD-EPIcr 2020) 96 >=60 mL/min/1.7 3 m2 09/24/2021 7:58 PM EDT [facility] Comment:Estimated GFR was ca lculated using the CKD-EPIcr (2020) equation refit without race. The equation is recommended by the National Kidney Foundation - [place] [employer] of Nephrology Task Force. Blood VENOUS BLOOD / Unknown Venipuncture / Unknown 09/24/2021 5:30 PM EDT 09/24/2021 5:30 PM EDT us Miroslava Campo MD CHEMISTRY ORDERABLES Final R esult [facility] [address] [facility], [place] [address] [facility] [address] [place] [address] from Last 3 Months or Most Recently Relevant to Health Maintenance Insurance MEDICARE [place] PART A AND B MEDICARE [place] PART A AND B O Advance Directives For more information, please contact: [phone] Documents on File Type Date Recorded Patient Registered Nurse Maternity Expl anation ADVANCE DIRECTIVE 10/27/2021 9:38 AM ADVANCE DIRECTIVE 12/01/2020 8:44 AM * Full Code (Latest Code Status on File) Date Activated Date Inactivated Comments 02/02/2022 12:31 PM 02/04/2022 7:00 PM Care Teams Showroom Salesperson Relationship Specialty Start Date End Date Catarino Ryan MD [address] [place] [address] PCP - General Family Medicine 10/26/21
--- OUTSIDE RECORDS SUMMARY | 2025-02-02 21:00 | XMS_ITS | Encounter Summary ---
Author Organization Healthcare Address [address] [place] [address] Care Team Providers Care Illustrator Set Name Role Phone Fritz Leung MD Unavailable [phone] Jose Thurman MD Primary Care Provider [phone] Reason for Visit * Reason Onset Date Comments Appt Changes 12/24/2024 Encounter Details Date Type Department Care Team (Late st Contact Info) Description 12/24/2024 Telephone [facility] [address] [place] [address] Yvon Monteiro MD [address] [place] [address] Appt Changes Social History Tobacco Use Types Packs/Day Years Used Date Smoking Tobacco: Former Cigarettes 2 2012 Alcohol Use Standard Drinks/Week Comments Not Currently [...] AM EDT Sexual Orientation Not on file documented as of this encounter Miscellaneous Notes * Telephone Encounter - Juju Johnston - 12/24/2024 4:21 PM EDT Confirmed provider and appointment changes with patient for 05/27 documented in this encounter Plan of Treatment Upcoming Encounters Date Type Department Care Team (Late st Contact Info) Description 03/26/2025 2:00 PM EDT Office Visit [facility] Nephrology, Bone & Mineral Metabolism [address], [address] [place] [address] Teresa Gil MD [address] [place] [address] 05/27/2025 1:50 PM EST Office Visit [facility] [address] [place] [address] Belinda Styles, CONSULTING UTILITY FORESTER, DNP [address] [place] [address] documented as of this encounter Visit Diagnoses Not on filedocumented in this encounter Additional Health Concerns Assessment Noted Time A fall risk assessment has been complete d for the patient 05/21/2024 2:34 PM EST A Body Mass Index follow-up plan has been documented for the patient 05/21/2024 3:49 PM EST documented as of this encounter Care Teams Illustrator Set Relationship Specialty Start Date End Date Jose Thurman MD [address] [place] [address] PCP - General 01/26/23 Fritz Leung MD [address] [facility] [address] [place] [address] Referring Physician 06/28/22 documented as of this encounter
--- NOTE | 2025-02-02 21:10 | XR_ITS ---
PROCEDURE INFORMATION: Exam: XR Chest Exam date and time: 02/02/2025 9:18 PM Age: 69 years old Clinical indication: Pain; Chest pressure; Additional info: Chest pain TECHNIQUE: Imaging protocol: Radiologic exam of the chest. Views: 1 view. Total images: 1 COMPARISON: CT ANGIO CHEST 11/27/2024 8:15 PM FINDINGS: Tubes, catheters and devices: EKG leads are present. Lungs: Unremarkable. No consolidation. No pulmonary vascular congestion or edema. Pleural spaces: Unremarkable. No pleural effusion. No pneumothorax. Heart/Mediastinum: Mild cardiomegaly. No mediastinal widening. Diaphragm: Mild eventration right hemidiaphragm. Bones/joints: Surgical hardware cervical spine. Other findings: Lordotic positioning. IMPRESSION: 1. No radiographically acute cardiopulmonary process. 2. Mild cardiomegaly.
--- NOTE | 2025-02-02 21:18 | PC.NURSE ---
Radiology at bed side.
[2025-02-02 21:20] LABS: Hematocrit 43.0 % (42.0-52.0); Hemoglobin 13.7 g/dL (14.1-18.0); Immature Granulocytes % 0.8 %; Mean Corpuscular HGB Conc 31.9 g/dL (31.8-35.4); Mean Corpuscular Hemoglobin 28.6 pg (27.0-31.2); Mean Corpuscular Volume 89.8 fl (80-94); Nucleated Red Blood Cells % 0 %; Platelet Count 235 K/mm3 (142-424); Red Blood Count 4.79 M/mm3 (4.60-6.20); Red Cell Distribution Width-SD 46.7 fL; White Blood Count 12.0 K/mm3 (4.8-10.8)
[2025-02-02 21:23] LABS: Albumin Level 4.7 g/dl (3.5-5.0); Chloride 105 mmol/L (98-107); Potassium 3.8 mmoL/L (3.5-5.1); Sodium 140 mmol/L (136-145)
[2025-02-02 21:25] LABS: Blood Urea Nitrogen 17 mg/dl (9-20); Creatinine Clearance Estimated 71 mL/min (50-200); Creatinine,Serum 1.00 mg/dl (0.66-1.25); Estimated Glomerular Filt Rate 74 ml/min (>60); GFR (African American) 89 ML/MIN (>60)
[2025-02-02 21:26] LABS: Alanine Aminotransferase 20 U/L (12-78); Albumin/Globulin Ratio 1.5 (1.1-1.8); Alkaline Phosphatase 93 U/L (38-126); Anion Gap 9.8 mEq/L (5-15); Aspartate Amino Transferase 30 U/L (17-59); Bilirubin,Total 0.7 mg/dl (0.2-1.3); Calcium 9.0 mg/dl (8.4-10.2); Carbon Dioxide 29 mmol/L (22.0-30.0); Globulin 3.1 g/dL (1.3-3.2); Glucose 113 mg/dl (74-100); Total Protein,Serum 7.8 g/dl (6.3-8.2)
[2025-02-02 21:36] LABS: NT Pro Brain Natriuretic Pep. 215 pg/mL (0-125)
[2025-02-02 21:44] LABS: Free T4 (Free Thyroxine) 1.16 ng/dl (0.78-2.19)
[2025-02-02 21:57] LABS: Thyroid Stimulating Hormone 1.44 uIU/mL (0.465-4.68)
[2025-02-02 21:58] LABS: Troponin I < 0.01 ng/ml (0.00-0.034)
--- NOTE | 2025-02-02 23:30 | PC.NURSE ---
Appointment card made for PT for 02/04/2025 [id number]
[2025-02-03 01:03] LABS: Troponin I < 0.01 ng/ml (0.00-0.034)
== END 2025-02-03 01:17 | disposition home or self-care (01) ==
PROVIDERS: Emergency Provider Student in an Organized Health Care Education/Training Program; PCP Internal Medicine
DX: R07.9 Chest pain, unspecified (principal); R51.9 Headache, unspecified; I49.3 Ventricular premature depolarization; I45.10 Unspecified right bundle-branch block; I10 Essential (primary) hypertension; E78.5 Hyperlipidemia, unspecified; Z86.79 Personal history of other diseases of the circulatory system
CPT/HCPCS: 71045; 80053; 83880; 84439; 84443; 84484; 85025; 93005; 99284; 99285

== ENCOUNTER 2025-04-30 13:54 | Outpatient (CLI) | payer MEDICARE, BC, SELFPAY ==
--- OUTSIDE RECORDS SUMMARY | 2025-04-30 14:05 | XMS_ITS | Clinical Summary ---
Author Organization [facility] Address [address] [place] [address] Care Team Providers Care Stunt Woman Name Role Phone Fritz Leung MD Unavailable Jose Thurman MD Primary Care Provider [phone] Allergies Active Allergy Reactions Criticality Noted Date [...] THREE TIMES DAILY Active Advocate Insulin Pen [place] 31G X 8 MM [facility] [place] Active HumuLIN R [...] index (BMI) of 40.0 or higher 01/26/2023 Resolved Problems Problem Noted Date Diagnosed Date Resolved Date Phimosis 11/04/2022 03/10/2025 Overview (11/04/2022): Added automatically from request for surgery [id number] Family History 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 Relation Name Comments Diabetes Mother Pancreatic cancer Mother COPD Other Diabetes Other Emphysema Other Hypertension Other Pancreatic cancer Other Anesthesia problems Neg Hx Malig Hyperthermia Neg Hx Relation Name Status Comments Mother Other Social History Tobacco Use Types Packs/Day Years Used Date Smoking Tobacco: Former Cigarettes 2 10 2 2012 Tobacco Cessation:Counseling Given: Not Answered [...] Care Team (Late st Contact Info) Description 05/21/2025 3:40 PM EST Office Visit [facility] Nephrology, Bone & Mineral Metabolism [address], [address] [place] [address] Teresa Gil MD [address] [place] [address] 05/27/2025 1:50 PM EST Office Visit [facility] [address] [place] [address] Belinda Styles P, [employer] E[employer]IPMENT OPERATOR, DNP [address] [place] [address] Health Maintenance Due Date Last Done Comments [facility]-Hepatitis C Screening 1954 [facility]-/Child/Adol SDOH Screenings 1954 [facility]- SDOH Screenings 1972 [facility]-Adult SDOH Screenings 1972 CT Colonography 1999 Colonoscopy 1999 FIT-DNA 1999 FIT 1999 FOBT 1999 Sigmoidoscopy 1999 [facility]-Colorectal Cancer Screening 1999 Lung Cancer Screening Shared Decision Making 2004 [facility]-RSV Vaccine: 60+ Years or (1 - Risk 60-74 years 1-dose series) 2014 [facility]-Zoster Vaccines (2 of 3) 04/08/2015 02/11/2015 [facility]-Abdominal Aortic Aneurysm (AAA) Screening 2019 [id number] Vaccine ( season) 2025 01/26/2022, 11/10/2021, 05/29/2021, Additional history exists [facility]-Influenza Vaccine (#1) 02/18/202504/07, 04/23/2022, 03/20/2022, Additional history exists [facility]-Depression Screening 05/21/2025 05/21/2024 [...] Completed 024, 01/26/2024, 01/26/2024, Additional history exists [facility]-Diabetes: Hemoglobin A1C Discontinued 09/04/2024, 08/29/2023, 10/26/2021, Additional history exists HPV Vaccines Aged Out [...] age to complete this [place] [address] [facility] Care Teams Stunt Woman Relationship Specialty Start Date End Date Jose Thurman MD [address] [place] [id number] PCP - General 01/26/23 Fritz Leung MD [address] [address] Referring Physician 06/28/22
--- OUTSIDE RECORDS SUMMARY | 2025-04-30 14:05 | XMS_ITS | Data Portability ---
Author Organization [facility] CYNDI Solano [place] Address [address] [place] [address] Care Team Providers Care Dance Entertainer Name Role Phone JERRY ROSENTHAL Lathing Supervisor MIQUEL STOLL Manager Security And Safety MADELINE ALVAREZ II Primary Care Provider Assessment No assessment recorded. Plan of Treatment Reminders Order Date Submit Date Provider Last Modified By Organization Details Last Modified Time Details Appointments RECHECK 2024 02:15P Iwona ROSENTHAL [facility] Not available Not available Not available DERM VISIT 2025 11:40A M ELIZABETH CERNA DO Not available Not available Not available LEVEL 2 2025 01:30P Iwona STOLL MD Not available Not available Not available Lab glucose, fingerst ick, blood 2024 025 [email or web address] 8 [facility], [address] [place] [address], [address], 12/26/2024 13:59:00 hemoglob in A1C, fingerst ick 2024 025 8 [facility], [address] [place] [address], [address], 12/26/2024 13:59:01 microalb umin/cre atinine, mass ratio, urine 2024 025 ASA [facility], [address] [place] [address], [address], 08/23/2024 12:12:55 lipid panel, serum 2024 025 [facility], [address] [place] [address], [address], 08/23/2024 12:04:30 glucose, fingerst ick, blood 2024 025 8 [facility], [address] [place] [address], [address], 08/23/2024 10:51:17 hemoglob in A1C, fingerst ick 2024 025 8 [facility], [address] [place] [address], [address], 08/23/2024 10:51:17 CMP, serum or plasma 2024 025 [facility], [address] [place] [address], [address], 08/23/2024 12:04:28 TSH, serum or plasma 2024 025 [facility], [address] [place] [address], [address], 08/23/2024 12:09:29 Referral None recorded . Procedures None recorded . Surgeries None recorded . Imaging None recorded . Medication Orders Humulin R U-500 (Conc) Insulin Kwikpen 500 unit/mL (3 mL) subcutan eous 2024 025 [facility], [address] [place] [address], [id number], 04/02/2025 15:08:58 Mounjaro 5 mg/0.5 mL subcutan eous pen injector 2024 025 [facility], [address] [place] [address], [id number], 02/25/2025 14:03:47 Humulin R U-500 (Conc) Insulin Kwikpen 500 unit/mL (3 mL) subcutan eous 2024 025 [facility], [facility] [address] [place], [id number], 08/23/2024 10:53:12 Ozempic 2 mg/dose (8 mg/3 mL) subcutan eous pen injector 2024 025 [email or web address] 8 [facility], [address] [place] [address] [place], [id number], 08/23/2024 12:15:52 Patient TargetsNo targets recorded. Patient Instructions Encounter Date Encounter Id Patient Instructions Last Modified By Organization Details Last Modified Time 06/18/2024 [id number] 1. Miquel repor ts that he has [...] reviewed with pt. 6 Follow up prn. [email or web address] Not available 06/18/2024 17:36:41 08/23/2024 [id number] [email or web address] Not available 13:19:32 12/26/2024 [id number] [email or web address] Not available 12/2024 13:45:32 03/01/2025 [id number] I have discussed the situation, differential diagnosis, and recommendation with the patient. He express understanding and wishes to proceed as recommended. [email or web address] Not available 03/01/2025 13:49:48 Reason for Referral None Reported. Results Created Date Observation Date Name Description Value Unit Range Abnormal Flag Note LastModifiedBy Organization Detail LastModifiedTime 08/24/1908/23/2024 COMP. METAB OLIC PANEL glucose 179 mg/dL 74-100 high Not Available [facility] [address] [place] [address], [address], 08/23/2024 12:04:28 08/24/19 25 08/23/2024 COMP. METAB OLIC PANEL blood urea nitrogen 26 mg/dL 6-20 high Not Available [facility] [address] [place] [address], [address], 08/23/2024 12:04:28 08/24/19 25 08/23/2024 COMP. METAB OLIC PANEL creatinine 1.04 mg/dL 0.70-1 .28 normal Not Available [facility] [address] [place] [address], [address], 08/23/2024 12:04:28 08/24/19 25 08/23/2024 COMP. METAB OLIC PANEL BUN/creatini ne ratio 25 (calc ) 10-20 high Not Available [facility] [address] [place] [address], [address], 08/23/2024 12:04:28 08/24/19 25 08/23/2024 COMP. METAB OLIC PANEL sodium 142 mmol/ L 136-14 5 normal Not Available [facility] [address] [place] [address], [address], 08/23/2024 12:04:28 08/24/19 25 08/23/2024 COMP. METAB OLIC PANEL potassium 4.4 mmol/ L 3.4-5. 0 normal Not Available [address], [address], 08/23/2024 12:04:28 08/24/19 25 08/23/2024 COMP. METAB OLIC PANEL chloride 103 mmol/ L 98-107 normal Not Available [address], [address], 08/23/2024 12:04:28 08/24/19 25 08/23/2024 COMP. METAB OLIC PANEL carbon dioxide 25 mmol/ L 22-31 normal Not Available [address], [address], 08/23/2024 12:04:28 08/24/19 25 08/23/2024 COMP. METAB OLIC PANEL anion gap 14 (calc ) 7-25 normal Not Available [address], [address], 08/23/2024 12:04:28 08/24/19 25 08/23/2024 COMP. METAB OLIC PANEL calcium 9.3 mg/dL 8.6-10 .2 normal Not Available [facility] [address] [place] [address], [address], 08/23/2024 12:04:28 08/24/19 25 08/23/2024 COMP. METAB OLIC PANEL total protein 7.1 g/dL 6.4-8. 3 normal Not Available [address], [address], 08/23/2024 12:04:28 08/24/19 25 08/23/2024 COMP. METAB OLIC PANEL albumin 4.2 g/dL 3.5-5. 2 normal Not Available [address], [address], 08/23/2024 12:04:28 08/24/19 25 08/23/2024 COMP. METAB OLIC PANEL globulin 2.9 1.5-4. 5 normal Not Available [facility] [address] [place] [address], [address], 08/23/2024 12:04:28 08/24/19 25 08/23/2024 COMP. METAB OLIC PANEL albumin/glob ulin ratio 1.4 (calc ) 1.1-2. 5 normal Not Available [facility] [address] [place] [address], [address], 08/23/2024 12:04:28 08/24/19 25 08/23/2024 COMP. METAB OLIC PANEL bilirubin, total 0.6 mg/dL 0.1-1. 2 normal Not Available [facility] [address] [place] [address], [address], 08/23/2024 12:04:28 08/24/19 25 08/23/2024 COMP. METAB OLIC PANEL alkaline phosphatase 98 U/L 40-129 normal Not Available [facility] [address] [place] [address], [address], 08/23/2024 12:04:28 08/24/19 25 08/23/2024 COMP. METAB OLIC PANEL AST 14 U/L 0-40 normal Not Available [facility] [address] [place] [address], [address], 08/23/2024 12:04:28 08/24/19 25 08/23/2024 COMP. METAB OLIC PANEL ALT 15 U/L 0-41 normal Not Available [facility] [address] [place] [address], [address], 08/23/2024 12:04:28 08/24/19 25 08/23/2024 COMP. METAB OLIC PANEL GFR 77 >= 60 normal NOT E New calcu latio n for GFR (CKD- EPI 2020) is formu lated witho ut race adjus tment facto rs at the recom menda tion of the Veronica snow and Faith Rutledge ty of Nephr ology . This calcu latio n has not been valid ated in pregn ant women . For pedia tric patie nts refer to https ://hugo w.enedina vance.o rg/pr ofess ional s/KDO QI/gf r_cal culat orPed Not Available [facility] [address] [place] [address], [address], 08/23/2024 12:04:28 08/24/1908/23/2024 LIPID PROFI LE HDL cholesterol 48 mg/dL 40-242 normal Not Available [facility] [address] [place] [address], [address], 08/23/2024 12:04:30 08/24/19 25 08/23/2024 LIPID PROFI LE triglyceride s 74 mg/dL 0-149 normal TRIGL YCERI DE RANGE S RUBEN L: < 150 BORDE RLINE HIGH: 150 - 199 HIGH: 200 - 499 VERY HIGH: > OR = 500 Not Available [facility] [address] [place], [address], 08/23/2024 12:04:30 08/24/19 25 08/23/2024 LIPID PROFI LE cholesterol 112 mg/dL 0-199 normal GUIDO STERO L (TOTA L) RANGE S MARISEL ABLE: < 200 BORDE RLINE : 200 - 239 HIGHE R RISK: > 239 Not Available [facility] [address] [place], [address], 08/23/2024 12:04:30 08/24/19 25 08/23/2024 LIPID PROFI LE LDL cholesterol 49 mg/dL _(ara c) 0-99 normal LDL GUIDO STERO L RANGE S OPTIM AL: < 100 NEAR/ ABOVE OPTIM AL: 100 - 129 BORDE RLINE HIGH: 130 - 159 HIGH: 160 - 189 VERY HIGH: > OR = 190 Not Available [facility] [address] [place] [address], [address], 08/23/2024 12:04:30 08/24/19 25 08/23/2024 TSH TSH 1.130 u[IU] /mL 0.270- 4.200 normal Not Available [facility] [address] [place] [address], [address], 08/23/2024 12:09:29 08/24/19 25 08/23/2024 MICRO ALBUM IN/CR EAT RATIO microalbumin , random 98 mg/L 0-19 high Not Available [facility] [address] [place] [address], [address], 08/23/2024 12:12:55 08/24/19 25 08/23/2024 MICRO ALBUM IN/CR EAT RATIO creatinine,u r,random 167 mg/dL normal NO RUBEN L RANGE ESTAB LISHE D FOR RANDO M URINE . Not Available [facility] [address] [place] [address], [address], 08/23/2024 12:12:55 08/24/19 25 08/23/2024 MICRO ALBUM IN/CR EAT RATIO MA/creatinin e ratio 59 mcg/m g_cre at 0-29 high Not Available [facility] [address] [place] [address], [address], 08/23/2024 12:12:55 08/24/19 25 08/23/2024 hemog lobin A1C, finge rstic k hemoglobin A1C % 6.8 % 4.0 - 5.6 Not Available [facility] [address] [place] [address], [address], 08/10/2024 13:19:34 08/24/19 25 08/23/2024 gluco se, finge rstic k, blood glucose, fingerstick 199 mg/dL 70 - 100 Not Available [facility] [address] [place] [address], [address], 08/10/2024 13:19:34 12/27/1912/26/2024 hemog lobin A1C, saschae rstic k hemoglobin A1C % 7.2 4.0 - 5.6 Not Available [facility] [address] [place], [address], 12/24/2024 13:45:34 12/27/19 25 12/26/2024 gluco se, finge rstic k, blood glucose, fingerstick 139 mg/dL 70 - 100 Not Available [facility] [address] [place], [address], 12/24/2024 13:45:34 Result Notes None recorded. 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 847150142 Active 2015 From [employer];Pro vider: Magdalena Fuentes;Sta tus: Active [facility] Available [facility] 7 06:21:34 Pain in right foot 86695929973 9107 Active 2015 From [employer];Pro vider: Magdalena Fuentes;Sta tus: Active [facility] Available [facility] 7 06:45:00 Congenit al talipes calcaneo valgus 158801044 Active 2015 From [employer];Pro vider: Magdalena Fuentes;Sta tus: Active Not Available [facility] 7 07:05:37 Tracheob ronchiti s 09905037 Completed 201501/03/2017 From [employer];Pro vider: Celia Monge;St atus: Active MIQUEL HERRMANN MD [address] [place] [address], [address] , [facility] 7 13:46:47 Senile hyperker atosis 982438612 Active 2015 From [employer];Pro vider: Marilin Gonsales;St atus: Active Not Available [facility] 7 06:00:03 Neoplast ic disease Completed 201501/03/2017 From [employer];Pro vider: Marilin Gonsales;St atus: Active MIQUEL HERRMANN MD [address] [place] [address], [address] , [facility] 7 13:46:51 Pain in left foot 39911176334 9107 Completed 201501/03/2017 From [employer];Pro vider: Magdalena Fuentes;Sta tus: Active MIQUEL HERRMANN MD [address] [place] [address], [address] , [facility] 7 13:46:55 Disorder of capillar ies 07010015 Active 2015 From [employer];Pro vider: Marilin Gonsales;St atus: Active Not Available [facility] 7 07:51:38 Hyperten sive disorder 32700720 Active 2017 MIQUEL HERRMANN MD [address] [place] [address], [address] , [facility] 2 07:59:22 Hyperlip idemia 44691038 Active 2017 MIQUEL HERRMANN MD [address] [place] [address], [address] , [facility] 2 07:59:22 Chronic depressi on 761219768 Active 2017 MIQUEL HERRMANN MD [address] [place] [address], [address] , [facility] 2 07:59:22 Chronic obstruct an pulmonar y disease 27344563 Active 2017 MIQUEL HERRMANN MD [address] [place] [address], [address] , [facility] 2 07:59:22 Diabetic peripher al neuropat hy 084044503 Active 2017 MIQUEL HERRMANN MD [address] [place] [address], [address] , [facility] 2 07:59:22 Venous insuffic iency of lower limb 441158637 Active 2020 MIQUEL HERRMANN MD [address] [place] [address], [address] , [facility] 1 16:20:44 Multiple complica tions due to type 2 diabetes mellitus Active 2021 JERRY ROSENTHAL APRN [address] [place] [address], [address] , [facility] 2 12:26:29 Lower urinary tract symptoms due to benign prostati c hypertro phy 46823476626 101 Active 2021 MIQUEL HERRMANN MD [address] [place] [address], [address] , [facility] 2 08:02:53 Chronic low back pain 150886388 Active 2021 MIQUEL HERRMANN MD [address] [place] [address], [address] , [facility] 2 08:02:53 Body mass index 40+ - severely obese 450692269 Active 2021 MIQUEL HERRMANN MD [address] [place] [address], [address] , [facility] 2 08:02:[address] segment elevatio n myocardi al infarcti on 92175126441 9104 Active 2021 MIQUEL HERRMANN MD [address] [place] [address], [address] , [facility] 2 07:52:05 Morbid obesity 251850785 Active 2022 MIQUEL HERRMANN MD [address] [place], [address] , [facility] 3 15:15:21 Recurren t major depressi on 07592360 Active 2022 MIQUEL HERRMANN MD [address] [place], [address] , [facility] 3 15:23:59 Renal disorder due to type 2 diabetes mellitus 661974980 Active 2024 JERRY ROSENTHAL APRN [address] [place], [address] , [facility] 5 13:45:35 Essentia l hyperten florinda 90868500 Active 2024 JERRY ROSENTHAL APRN [address] [place], [address] , [facility] 5 13:45:35 Pile easily reducibl e 244647923 Active 2024 EVITA DIAMOND MD [address] [place], [address] , [facility] 13:49:04 Problem Notes None recorded. Procedures Surgical History Date Name Laterality Status Provider Name and Address Organization Details Recorded Time 025 Diabetic Foot Exam active JERRY ROSENTHAL APRN [address] [place], [address], [facility] 04/30/2025 08:43:41 025 Diabetic Foot Exam completed JERRY ROSENTHAL APRN [address] [place], [address], [facility] 12/24/2024 13:45:31 025 Diabetic Foot Exam completed JERRY ROSENTHAL APRN [address] [place], [address], [facility] 08/23/2024 12:17:37 024 Laryngoscopy Flex completed Fred Fletcher [facility] 06/18/2024 15:35:17 024 Destruction BN Lesions completed ELIZABETH CERNA DO [address] [place] [address], [address], [facility] 03/08/2024 17:02:10 022 TCM completed [facility] 06/03/2022 07:19:18 022 OCT/Retina completed MIQUEL STOLL MD [address] [place] [address], [address], [facility] 06/07/2022 16:04:02 022 catheterization of left heart completed [facility] 06/03/2022 07:29:27 022 Destruction BN Lesions completed Damaris Johnson [facility] 08/05/2021 14:43:50 022 Cystoscopy - male completed KARUNA ALDRIDGE MD [address] [place] [address], [address], [facility] 07/13/2021 13:19:21 021 Post Void Residual; Ultrasound completed Katina Camejo [facility] 05/19/2021 15:49:13 021 OCT/Retina completed MIQUEL STOLL MD [address] [place] [address], [address], [facility] 03/06/2021 12:14:35 021 repair of shoulder completed Monica Osorio [facility] 02/09/2021 14:40:09 021 Bubbles Echocardiogram completed ISAAK CASTRO MD [address] [place] [address], [address], [facility] 07/21/2020 15:43:23 021 Diffusion Capacity completed SILVESTRE MCLAIN PA-C [address] [place] [address], [address], [facility] 07/10/2020 15:30:41 021 Lung Volumes, Plethysmography completed SILVESTRE MCLAIN PA-C [address] [place] [address], [address], [facility] 07/10/2020 15:31:01 021 Spirometry completed SILVESTRE MCLAIN PA-C [address] [place], [address], [facility] 07/10/2020 15:31:15 020 Biopsy Skin Lesion; Punch completed [facility] 08/20/2019 12:12:34 020 Destruction BN Lesions completed [facility] 08/20/2019 12:12:09 019 Digital Rectal Screening Exam completed MIQUEL HERRMANN MD [address] [place], [address], [facility] 07/13/2018 16:22:10 018 Digital Rectal Screening Exam completed MIQUEL HERRMANN MD [address] [place], [address], [facility] 07/11/2017 16:34:07 017 MNT Initial Visit completed [address] [place], [address], [facility] 01/20/2017 14:21:14 017 Audiogram completed JACLYN WHARTON [address] [place], [address], [facility] 06/30/2016 14:57:39 011 Cervical Spine Surgery completed Brea Leos [facility] 06/08/2016 14:35:47 Cataract Surgery completed Melissa holly giuseppe [facility] 06/08/2016 14:35:11 Knee Surgery completed Brea giuseppe [facility] 06/08/2016 14:37:21 Imaging Results None recorded. Procedure Notes None recorded. Medical Equipment None Reported. Allergies Allergen ID Allergen Name Allergen Category Reaction Reaction Severity Criticality Documentation Date Start Date Code Code System Note Provider Name and Address Organization Details Recorded Time 313087 Non-stero idal anti-infl ammatory agent (substanc e) medicatio n Not available Not available Not available 09/16/2016 24257 5008 SNOMED Verito Marcie [facility] 7 10:06:11 186892 Substance with sulfonami de structure and antibacte rial mechanism of action (substanc e) medicatio n Not available Not available Not available 09/16/2016 86745 8003 SNOMED Verito Jack [facility] 7 10:06:23 519667 aspirin medicatio n Not available Not available Not available 09/16/2016 1191 RxNorm Jocelyn Kay [facility] 2 14:56:06 278985 pravastat in medicatio n rash Not available Not available 08/18/2022 64923 RxNorm JERRY ROSENTHAL, [facility] [facility] [address] [place], [address], [facility] 3 16:14:52 762133 lisinopri l medicatio n cough Not available Not available 12/08/2023 70876 RxNorm JERRY ROSENTHAL, [employer]LLA [employer] [facility] [address] [place], [address], [facility] 4 10:43:26 Medications Name Sig Start Date Stop Date Status Note LastModified by Organization Details LastModified Time eq mucus er 600mg tab TAKE 1 TO 2 TABLETS BY MOUTH TWICE DAILY NEEDED FOR CONGESTI ON 03/01 completed Not Available Not Available Not Available Prescript ion - Prior Authoriza tion [...] mg tablet one po at hs prn 03/01 completed Not Available Not Available Not Available amoxicill in 500 mg capsule 11/30 [...] mg tablet TAKE 2 TABLETS BY MOUTH 3 TIMES A DAY active Not Available Not [...] Not Available azithromy dhiraj 250 mg tablet TAKE 2 TABLETS BY MOUTH ON DAY 1, THEN TAKE 1 TABLET DAILY ON DAYS 2 THROUGH 5 03/01 completed Not Available Not Available Not Available nystatin 100,000 unit/gram topical ointment active Not Available Not Available Not Available valacyclo vir 1 gram tablet 03/01 completed Not Available Not Available Not Available hydrocodo ne 5 mg-acetam inophen 325 mg tablet Take 1 tablet every 8 hours by oral route as needed. 03/01 completed Not Available Not Available Not Available Levaquin 750 mg tablet Take 1 [...] 8 hours by oral route as needed. 03/01 completed 05/28/19 Pt reports takes 3 tabs bid plus 4 tabs at hs. Not Available Not Available Not Available clopidogr el 75 mg tablet TAKE 1 TABLET BY MOUTH ONCE A DAY active Not Available Not Available No t Available amlodipin e 5 mg tablet TAKE 1 TABLET BY MOUTH ONCE A DAY active Not Available Not Available No t Available aspirin 81 mg tablet,de layed release [...] completed Not Available Not Available Not Available carvedilo l 3.125 mg tablet TAKE 1 TABLET BY MOUTH 2 TIMES A DAY WITH MEALS active Not Available Not Available No t Available bisoprolo l fumarate 5 mg tablet Take 1 tablet every day by oral route. 03/01 completed Not Available Not Available Not Available nystatin- triamcino lone 100,000 unit/gram -0.1 [...] Not Available tamsulosi n 0.4 mg capsule TAKE 1 CAPSULE BY MOUTH ONCE DAILY active Not Available Not Available [...] MOUTH THREE TIMES DAILY NEEDED FOR COUGH 03/01 completed Not Available Not Available Not Available hydrocodo ne 7.5 mg-acetam inophen 325 [...] DAILY FOR 4 DAYS THEN DISCONTI NUE 03/01 completed Not Available Not Available Not Available nystatin 100,000 unit/gram topical cream APPLY [...] lone 100,000 unit/g-0. 1 % topical cream APPLY TO AFFECTED AREA 2 TIMES A DAY NEEDED active Not Available Not Available No t Available pravastat in 20 mg tablet TAKE ONE TABLET BY MOUTH ONCE A DAY active Not Available Not Available No t Available mupirocin 2 % topical ointment APPLY TOPICALL Y 3 TIMES A DAY 03/01 completed Not Available Not Available Not Available Novolog U-100 Insulin aspart 100 unit/mL [...] Available Not Available Nasonex 50 mcg/actua tion [place] 2 sprays every day by intranas al route. 05/28 completed Not Available Not Available Not Available methylpre dnisolone 4 mg tablets in a dose pack TAKE 6 TABLETS ON DAY 1 DIRECTED ON PACKAGE AND DECREASE BY 1 TAB EACH DAY FOR A TOTAL OF 6 DAYS active Not Available Not Available No t Available albuterol sulfate HFA 90 mcg/actua tion [...] mg capsule TAKE 3 CAPSULES BY MOUTH EVERY DAY active Not Available Not Available No t Available fluticaso ne propionat e 50 mcg/actua tion nasal spray,daniel pension USE 1 TO 2 SPRAY(S) IN EACH NOSTRIL ONCE DAILY active Not Available Not Available No t Available amoxicill in 875 mg-potass ium clavulana te 125 mg tablet TAKE 1 TABLET BY MOUTH 2 TIMES A DAY WITH FOOD FOR 10 DAYS FOR INFECTIO N active Not Available Not Available No t Available tobramyci n 0.3 %-dexamet hasone 0.1 % eye drops,daniel pension INSTILL 1 DROP INTO BOTH EYES 3 TIMES DAILY FOR UP TO 2 WEEKS, THEN STOP 03/01 completed Not Available Not Available Not Available oxycodone 5 mg tablet 11/08 completed Not Available Not Available Not Available nystatin (bulk) 1 billion unit powder Apply powder topicall y to the skin as directed . 11/11 completed Qty 15 Not Available Not Available Not Available azithromy dhiraj 500 mg tablet TAKE 1 TABLET 3 TIMES A WEEK BY MOUTH TAKE 1 TABLET EVERY TUESDAY, , AND TUESDAY EACH WEEK active Not Available Not Available No t Available ezetimibe 10 mg tablet TAKE ONE TABLET BY MOUTH ONCE A DAY GENERIC FOR ZETIA active Not Available Not Available No t [...] e 60 mg capsule,d elayed release TAKE 1 CAPSULE BY MOUTH ONCE A DAY active Not Available Not Available No t Available Zanaflex 2 mg capsule Take 1 capsule twice a day by oral route. 09/[address] Anthony Parmar Not Available Not Available Not Available loratadin e active Not Available Not Available Not Available Vitamin C as directed 05/28 completed Not Available Not Available Not Available zinc sulfate As directed 09/02 completed Not Available Not Available Not Available vitamin B complex as directed 05/28 completed Not Available Not Available Not Available Benadryl prn at HS 03/01 completed Not Available Not Available Not Available prednison e x 5 days - per hospital 01/03 completed Not Available Not Available Not Available monteluka st active Not Available Not Available Not Available doxycycli ne hyclate 04/28 completed Not Available Not Available Not Available Antidiarr heal OTC prn 03/01 completed Not Available Not Available Not Available Vitamin B6 as directed 05/04 completed Not Available Not Available Not Available Eye Allergy Relief eye drops daily prn 03/01 completed Not Available Not Available Not Available Asmanex Twisthale r active Not Available Not Available Not Available Lyrica active Not Available Not Availa ble Not Available valsartan 320 mg-hydroc hlorothia zide 12.5 mg tablet 03/01 completed Not Available Not Available Not Available ProAir HFA 03/01 completed Not Available Not Available Not Available hydrochlo [...] tablet twice a day by oral route. 03/01 completed Not Available Not Available Not Available ipratropi um 0.5 mg-albute rol 2.5 mg/2.5 mL solution for nebulizat ion Inhale by inhalati on route. 01/03 completed Every 2 hours as needed Not Available Not Available Not Available Advocate Pen Needle 31 gauge x 5/16 USE DIRECTED UP TO 2 TIMES A DAY WITH INSULIN active Not Available Not Available No t Available Victoza 3-Liam 0.6 mg/0.1 mL (18 mg/3 mL) subcutane ous pen injector INJECT 1.8 MG DAILY 01/27 completed 07/09/19 Pt taking 1.2 mg daily and will increase to 1.8 mg. 07/06/18- 01/10/18 Not Available Not Available Not Available Farxiga 10 mg tablet 07/16 completed Not Available Not Available Not Available guaifenes in ER 600 mg tablet, extended release 12 hr TAKE 2 TABLETS BY MOUTH TWICE DAILY active Not Available Not Available No t Available Levemir FlexTouch U-100 Insulin 100 unit/mL [...] puffs every day by inhalati on route. 03/01 completed Not Available Not Available Not Available Humulin R U-500 (Conc) Insulin Kwikpen 500 unit/mL (3 mL) subcutane ous INJECT UP TO 50 UNITS 2 TIMES A DAY BEFORE MEALS active Not Available Not Available No t [...] (8 mg/3 mL) subcutane ous pen injector INJECT 2 MG SUBCUTAN EOUSLY ONCE WEEKLY active Not Available Not Available No t Available Mounjaro 5 mg/0.5 mL subcutane ous pen injector INJECT 5 MG SUBCUTAN EOUSLY ONCE WEEKLY active Not Available Not Available No t Available Dexcom G7 Sensor device USE directed EVERY 10 DAYS active Not Available Not Available No t Available Ozempic 0.25 mg or 0.5 mg (2 mg/3 mL) subcutane ous pen injector INJECT 0.5 MG SUBCUTAN EOUSLY EVERY WEEK 11/30 completed Not Available Not Available Not Available Vitals Date Recorded Body height Body mass index (BMI) Body weight Systolic And Diastolic Provider Name and Address Organization Details Last Updated DateTime 08/23/2024 175.26 cm 49.9 kg/m2 674296.22 g 114/80 mm[Hg] [facility] 08/23/2024 10:32:47 Date Recorded Body height Body mass index (BMI) Body weight Heart rate Systolic And Diastolic Provider Name and Address Organization Details Last Updated DateTime 12/26/2024 175.26 cm 48.6 kg/m2 194979.8 9 g 91 /min 125/85 mm[Hg] Janny Rios [facility] 12/26/2024 13:37:24 Date Recorded Body height Body mass index (BMI) Body weight Heart rate Respiratory rate Systolic And Diastolic Provider Name and Address Organization Details Last Updated DateTime 5 175.26 cm 47.8 kg/m2 768275. 93 g 87 /min 16 /min 129/73 mm[Hg] Yola De La Rosa [facility] 5 13:33:53 Date Recorded Body height Provider Name an d Address Organization Details Last Updated DateTime 03/15/2025 175.26 cm Gabriella Morris [facility] 0 03/15/2025 11:20:01 Date Recorded Body height Body mass index (BMI) Body weight Body temperature Heart rate Systolic And Diastolic Provider Name and Address Organization Details Last Updated DateTime 4 175.26 cm 48.9 kg/m2 432253. 36 g 98.2 [degF] 90 /min 112/75 mm[Hg] Maddy Calderon [facility] 4 14:43:32 Social History Question Answer Notes LastModified by Organizat ion Details LastModified Time Tobacco Smoking Status Former Smoker [facility]IT [address] [facility] 14:34:38 Do You Have An Advance Directive? No [email or web address] Information not available 06/07/2019 What Is Your Level Of Caffeine Consumption? Moderate Information not available 07/08/2017 How Much Tobacco Do You Chew? None Information not available 07/13/2018 What Type Of Diet Are You Following? REGULAR [email or web address] Information not available 06/07/2019 Which Illicit Or Recreational Drugs Have You Used? No [email or web address] Information not available 06/07/2019 Education 2 Year College Information not available 07/08/2017 When Did You Quit Smoking? 16+yearssinc elastcigaret te Information not available 10/28/2022 Live Alone Or With Others? With Others Information not available 07/08/2017 Marital Status Informatio n not available 06/08/2016 What Was The Date Of Your Most Recent Tobacco Screening? 11/08/2022 [email or web address] Information not available 11/08/2022 What Is Your Relationship Status? [email or web address] Information not available 05/19/2021 Seat Belts Used [...] of alcohol consumption? None Information not available 06/08/2016 Do you or have you ever used smokeless tobacco? Never used smokeless tobacco Information not available 01/19/2019 Are you able to care for yourself independently? Yes Information not available 07/08/2017 What is your occupation? [employer] [facility] [place] [employer] Information not available 07/11/2017 Do you or [...] 15:14:09 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 Condition Response Diabetes Y Coronary Artery Disease Y Heart Problems Y Other Y Bleeding Disorder Y Arthritis Y Chronic Obstructive Pulmonary Disease Y Ear or Hearing Problems Y Migraines Y Asthma Y COPD Y Depression Y Pneumonia Y Urinary Problems Y Sleep Apnea Y Sleep Disorder Y High Cholesterol Y Snoring problems Y Heart Disease Y Bronchitis Y Heart Attack (MS) Y Headaches Y Hypertension Y Osteoporosis Y Glasses/Contacts Y Immunizations Vaccine Type Date Status Note Provider Nam e and Address Organization Details Recorded Time zoster live 5 completed Not Available [facility] 03/15/2025 10:51:33 pneumococcal polysaccharide PPV23 1 completed Not Available [facility] 03/15/2025 10:51:33 COVID-19, mRNA, LNP-S, PF, 100 mcg/0.5mL dose or 50 mcg/0.25mL dose 1 completed Not Available [facility] 03/15/2025 10:51:33 Influenza, recombinant, quadrivalent, PF 3 completed Not Available [facility] 03/15/2025 10:51:33 COVID-19, mRNA, LNP-S, PF, 50 mcg/0.5 mL 3 completed Not Available [facility] 03/15/2025 10:51:33 COVID-19, mRNA, LNP-S, PF, mira-sucrose, 30 mcg/0.3 mL 4 completed [facility] 03/15/[facility]25 10:51:33 Influenza, high-dose, trivalent, PF 4 completed Not Available [facility] 03/15/2025 10:51:33 COVID-19, mRNA, LNP-S, PF, 10 mcg/0.2 mL 5 completed Not Available [facility] 03/15/2025 10:51:33 Influenza, high-dose, trivalent, PF 9 completed Not Available [facility] 07/07/2019 02:48:55 Pneumococcal conjugate PCV 13 0 completed Not Available [facility] 07/07/2019 02:48:26 Influenza, high-dose, quadrivalent, PF 0 completed [facility] 15:59:45 Influenza, high-dose, quadrivalent, PF 2 completed [facility] 12:03:00 pneumococcal polysaccharide PPV23 2 completed MIQUEL HERRMANN MD [address] [place] [address], [phone], [facility] 08/18/2021 11:04:59 Influenza, split virus, quadrivalent, preservative 7 completed MIQUEL HERRMANN MD [address] [place] [address], [phone], [facility] hospital 11/08/2022 15:20:57 pneumococcal polysaccharide PPV23 3 [facility] [address] 09/15/2016 08:08:52 Tdap 9 completed MIQUEL HERRMANN MD [address] [place] [address], [phone], [facility] hospital 11/08/2022 15:20:58 influenza nasal, unspecified formulation 2 completed MIQUEL HERRMANN MD [address] [place] [address], [address], [facility] hospital 11/08/2022 15:20:58 zoster recombinant 9 completed MIQUEL HERRMANN MD [address] [place] [address], [phone], [facility] hospital 11/08/2022 15:20:57 zoster recombinant 9 completed MIQUEL HERRMANN MD [address] [place] [address], [phone], [facility] hospital 11/08/2022 15:20:57 Influenza, high-dose, quadrivalent, PF 0 completed MIQUEL HERRMANN MD [address] [place] [address], [phone], [facility] hospital 11/08/2022 15:20:57 Influenza, high-dose, quadrivalent, PF 1 completed MIQUEL HERRMANN MD [address] [place] [address], [phone], [facility] hospital 11/08/2022 15:20:57 COVID-19, mRNA, LNP-S, PF, 100 mcg/0.5mL dose or 50 mcg/0.25mL dose 1 completed MIQUEL HERRMANN MD [address] [place] [address], [phone], [facility] hospital 11/08/2022 15:20:57 COVID-19, mRNA, LNP-S, PF, 100 mcg/0.5mL dose or 50 mcg/0.25mL dose 2 completed MIQUEL HERRMANN MD [address] [place] [address], [phone], [facility] hospital 11/08/2022 15:20:57 COVID-19, mRNA, LNP-S, PF, 100 mcg/0.5mL dose or 50 mcg/0.25mL dose 1 completed MIQUEL HERRMANN MD [address] [place] [address], [phone], [facility] hospital 11/08/2022 15:20:58 COVID-19, mRNA, LNP-S, bivalent, PF, 50 mcg/0.5 mL or 25mcg/0.25 mL dose 2 completed MIQUEL HERRMANN MD [address] [place] [address], [phone], [facility] hospital 11/08/2022 15:20:58 Hep A, adult 0 completed MIQUEL HERRMANN MD [address] [place] [address], [phone], [facility] hospital 11/08/2022 15:20:58 Hep A, adult 9 completed MIQUEL HERRMANN MD [address] [place] [address], [phone], [facility] hospital 11/08/2022 15:20:58 Influenza, split virus, quadrivalent, PF 6 completed MIQUEL HERRMANN MD [address] [place] [address], [phone], Critical [facility] hospital 11/08/2022 15:20:58 Past Encounters Encounter ID Performer Location Encounter Start Date Encounter Closed Date Diagnosis/Indication Diagnosis SNOMED-CT Code Diagnosis ICD10 Code Diagnosis IMO Codes Diagnosis Note [id number] SCARLETT JAQUEZ, JACLYN ENT [address] [place] [address] 06/30/2016 14:02:35 06/30/2016 15:00:50 Sensorineural hearing loss of bilateral ears 036761752 H90.3 Bilateral tinnitus 27493 54675 102 H93.13 [id number] MIQUEL HERRMANN MD [facility] [address] [place] [address] 09/16/2016 09:51:54 09/16/2016 13:47:26 Acute exacerbation of asthma 456946598 J45.901 Patient has failed outpatient therapy as he is on Zithromax, prednisone and frequent neb treatments with continued diffuse wheezing. I have called [facility] emergency room and patient will be seen there right away for further evaluation and probable admission to hospital. [id number] MIQUEL HERRMANN MD [facility] [address] [place] [address] 09/22/2016 07:41:54 09/22/2016 08:33:11 Acute bronchitis 60455651 J20.9 Finish course of Zithromax Chronic ob structive pulmonary disease 66677501 J44.9 Finish course of prednisone . Continue duo nebs as directed. Patient is slowly improving. He will call and return if he doesn't continue to improve or if he should worsen. [id number] JERRY ROSENTHAL APRN [facility] [address] [place] [address] 11/04/2016 09:35:01 11/04/2016 11:11:18 Uncontrolled type 2 diabetes mellitus 000581804 E11.65 Diabetes mellitus Type 2, uncontroll ed. [...] ne 1.0GFR 76TSH 0.883AST 35ALT 36 Hyperlipidemia 61350314 E78.5 Goal LDL is under 100 mg/dl. Last LDL: 111 on 05/03/16Tr iglyceride s: 301 Upon further questionin g, patient states that he has not been taking pravastati n.Encour ed patient to restart pravastati n therapy.Co ntinue dietary changes as recommende d. Essential hypertension 38014059 I10 Goal B.P is less than 140/90 mmHg. Continue current anti-hyper tensive medication s as appropriat e per patient s PCP. [id number] JERRY ROSENTHAL APRN [facility] [address] [place] [address] 12/22/2016 14:58:29 12/23/2016 09:38:55 Uncontrolled type 2 diabetes mellitus 838100511 E11.65 Diabetes mellitus Type 2, uncontroll ed. [...] ne 1.0GFR 76TSH 0.883AST 35ALT 36 Hyperlipidemia 11222888 E78.5 Goal LDL is under 100 mg/dl. Last LDL: 111 on 05/03/16Tr iglyceride s: 301 Discussed statin therapy with patient. His ASCVD risk is 27.8% and he should be on a high-inten sity statin. However, he does have a history of slightly elevated LFTs. Will restart low-dose statin for now.Contin ue dietary changes as recommende d. Essential hypertension 72143005 I10 Goal B.P is less than 140/90 mmHg. Continue current anti-hyper tensive medication s as appropriat e per patient s PCP. Morbid obesity 995531693 E66.01 -Dietary recommenda tions as above. -Exercise [...] procedure and to optimize diet and exercise. [id number] MIQUEL HERRMANN MD [facility] [address] [place] [address] 01/03/2017 13:15:13 01/03/2017 14:08:06 Hypertensive disorder 52769884 I10 Hyperlipidemia 37614770 E78.5 Chronic depression 29099 0009 F34.1 Chronic ob structive pulmonary disease 83264185 J44.9 Diabetic p eripheral neuropathy 490616089 E11.40 Patient has signed CSA and SILVINO is appropriat e. [id number] [address] [facility] [address] [place] [address] 01/20/2017 13:25:42 01/20/2017 14:22:17 Diabetes mellitus 33326764 E11.65 [id number] JERRY ROSENTHAL APRN [facility] [address] [place] [address] 02/07/2017 08:28:32 02/07/2017 15:58:46 Uncontrolled type 2 diabetes mellitus 161134385 E11.65 Diabetes mellitus Type 2, uncontroll ed. [...] ne 1.0GFR 76TSH 0.883AST 35ALT 36 Hyperlipidemia 13161472 E78.5 Goal LDL is under 100 mg/dl. Last LDL: 111 on 05/03/16Tr iglyceride s: 301 Continue pravastati n as prescribed .Continue dietary changes as recommende d. Essential hypertension 76892768 I10 Goal B.P is less than 140/90 mmHg. Continue current anti-hyper tensive medication s as appropriat e per patient s PCP. Morbid obesity 855302981 E66.01 -4lb weight loss since last visit.- tary recommenda tions as above. -Exercise recommenda tions as above. [id number] JERRY ROSENTHAL APRN [facility] [address] [place] [address] 05/20/2017 13:22:23 05/20/2017 14:04:52 Uncontrolled type 2 diabetes mellitus 065641987 E11.65 Diabetes mellitus Type 2, uncontroll ed. [...] up to date on eye exam. (Dr. Flowres) Patient to schedule. - Patient is up to date on urine testing for microalbum in. - Patient verbalized understand ing of treatment plan. All questions answered. -Last labs on 09/18/16BUN 31Creatini ne 1.0GFR 76TSH 0.883AST 35ALT 36 Hyperlipidemia 46663858 E78.5 Goal LDL is under 100 mg/dl. Last LDL: 111 on 05/03/16Tr iglyceride s: 301 Continue pravastati n as prescribed .Continue dietary changes as recommende d. Essential hypertension 07208021 I10 Goal B.P is less than 140/90 mmHg. Continue current anti-hyper tensive medication s as appropriat e per patient s PCP. Morbid obesity 541284881 E66.01 -Weight gain since last visit. Patient asked about addipex. I advised him that I do not recommend that given his history of hypertensi on, MS, and he is currently taking cymbalta.- Dietary recommenda tions as above. Stategies to avoid temptation s discussed. -Exercise recommenda tions as above. Renal diso rder due to type 2 diabetes mellitus 901471346 E11.22 MACR positive (40) on 02/07/17.Co ntinue losartan therapy.Wi ll recheck at next visit. [id number] CELIA MONGE PA-C [facility] [address] [facility] [place] [place] [address] 05/20/2017 14:19:09 05/20/2017 16:09:56 Lesion of penis 887249878 N48.9 white hard tender lesion overlying penile skin on the right side of the distal penis. no ulceration or bleeding. i would like to refer to urology to evaluate this new penile lesion. 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 Body mass index 40+ - severely obese 454107501 Z68.42 Continue weight loss efforts. Screening for malignant neoplasm of colon 968385425 Z12.11 [id number] JERRY ROSENTHAL APRN [facility] [address] [place] [address] 09/02/2017 14:05:45 09/02/2017 15:17:19 Uncontrolled type 2 diabetes mellitus 682854444 E11.65 Diabetes mellitus Type 2, uncontroll ed. [...] 89AST 24ALT 26MACR positive (40) 02/07/17 Hyperlipidemia 49334724 E78.5 Goal LDL is under 100 mg/dl. Last LDL: 102 on 07/11/17Tri glycerides : 202 Continue pravastati n as prescribed .Continue dietary changes as recommende d. Essential hypertension 19198461 I10 Goal B.P is less than 140/90 mmHg. Continue current anti-hyper tensive medication s as appropriat e per patient s PCP. Morbid obesity 125020398 E66.01 -Dietary recommenda tions as above. -Will start Victoza as above for blood glucose and cardiovasc ular protection . It may assist with weight loss efforts. -Exercise recommenda tions as above. Renal diso rder due to type 2 diabetes mellitus 966803838 E11.22 MACR positive (40) on 02/07/17.Co ntinue losartan therapy as ordered. [id number] CELIA MONGE PA-C [facility] [address] [place] , [place] [address] 10/17/2017 12:51:54 10/17/2017 13:26:05 Chronic depression 631083909 F34.1 feels cymbalta is not effective any longer. patient will go ahead and stop Cymbalta and start fluoxetine as directed instead. Recheck in 1 month. This may need to be increased. [id number] ISAAK FLOWERS MD OPHTHALMO LOGY [address] [place] [address] 10/25/2017 14:33:49 10/26/2017 08:48:25 Type 1 diabetes mellitus 44253216 E10.9 Bilateral pseudophakia 8497169331 3277170 Z96.1 Myopia 98778747 H52.13 Presbyopia 95975955 H52. 4 [id number] MIQUEL HERRMANN MD [facility] [address] [place] [address] 12/28/2017 10:05:54 12/28/2017 10:41:40 Hypertensive disorder 43631427 I10 Hyperlipidemia 55318516 E78.5 Chronic depression 17050 0009 F34.1 Chronic ob structive pulmonary disease 97615665 J44.9 Diabetic p eripheral neuropathy 129032315 E11.40 Patient has signed CSA and SILVINO is appropriat e. Body mass index 40+ - severely obese 557271219 Z68.42 Continue weight loss efforts. [id number] JERRY ROSENTHAL APRN [facility] [address] [place] [address] 01/10/2018 09:41:56 01/10/2018 12:47:12 Uncontrolled type 2 diabetes mellitus 699668232 E11.65 Diabetes mellitus Type 2, uncontroll ed. [...] 89AST 24ALT 26MACR positive (40) 02/07/17 Hyperlipidemia 20604642 E78.5 Goal LDL is under 100 mg/dl. Last LDL: 102 on 07/11/17Tri glycerides : 202 Continue pravastati n as prescribed .Continue dietary changes as recommende d. Essential hypertension 78375632 I10 Goal B.P is less than 140/90 mmHg. Continue current anti-hyper tensive medication s as appropriat e per patient s PCP. Renal diso rder due to type 2 diabetes mellitus 984340227 E11.22 MACR positive (40) on 02/07/17.Co ntinue losartan therapy as ordered.Re peat MACR today. [id number] LITZY HERNANDEZ PA-C [facility] [address] [place] [address] 05/04/2018 10:54:04 05/04/2018 13:04:21 Nausea 178562314 R11.0 Contusion of rib 4909759 06 S20.20XS Lower resp iratory tract infection 52586522 J22 [id number] MIQUEL HERRMANN MD [facility] [address] [place] [address] 06/01/2018 14:30:56 06/01/2018 15:59:36 Viral gastroenteritis 153602083 A08.4 This has resolved but he still has some fatigue. Upper resp iratory infection 62184866 J06.9 His symptoms are consistent with a [...] is taking currently. Osteoarthr itis of knee 147618209 M17.[address] Esme newton [id number] JERRY ROSENTHAL APRN [facility] [address] [place] [address] 07/06/2018 10:18:23 07/06/2018 16:03:40 Uncontrolled type 2 diabetes mellitus 054941044 E11.65 Diabetes mellitus Type 2, uncontroll ed. [...] ia. - Dietitian referral: Previously referred; MNT 2016 - Encouraged to be active [...] 89AST 24ALT 26MACR positive (119) 01/10/18 Hyperlipidemia 12747740 E78.5 Goal LDL is under 100 mg/dl. Last LDL: 102 on 07/11/17Tri glycerides : 202 Continue pravastati n as prescribed .Continue dietary changes as recommende d. Essential hypertension 63557792 I10 Goal B.P is less than 140/90 mmHg. Continue current anti-hyper tensive medication s as appropriat e per patient s PCP. Renal diso rder due to type 2 diabetes mellitus 532825365 E11.22 MACR positive (119) on 01/10/18.Co ntinue losartan therapy as ordered. Body mass index 40+ - severely obese 536123488 Z68.42 Dietary recommenda tions as above. Exercise recommenda tions as above. [id number] MIQUEL HERRMANN MD [facility] [address] [place] [address] 07/13/2018 12:23:23 07/13/2018 14:09:48 Adult health examination 588902300 Z00.00 Screening for malignant neoplasm of prostate 461027841 Z12.5 Hypertensive disorder 38 522018 I10 Hyperlipidemia 72990162 E78.5 Chronic depression 17431 0009 F34.1 Depression is uncontroll ed. Increase Prozac to 60 mg daily. If not improving in one month or worsening, he will let me know. Chronic ob structive pulmonary disease 06269773 J44.9 Diabetic p eripheral neuropathy 181820943 E11.40 Patient has signed CSA and SILVINO is appropriat e.Patient doesn't need gabapentin today. Body mass index 40+ - severely obese 716019460 Z68.42 Continue weight loss efforts. Screening for malignant neoplasm of colon 944367076 Z12.11 Arrange referral to GI for colonoscop y Candidal balanitis 27083 007 B37.42 Diflucan as directed. If not improving, he will let me know we can arrange referral to urology dermatolog y. [id number] JERRY ROSENTHAL APRN ENDOCR[facility] [address] [place] [address] 12/29/2018 10:22:43 12/29/2018 11:09:20 Uncontrolled type 2 diabetes mellitus 746938396 E11.65 Diabetes mellitus Type 2, uncontroll ed. [...] up to date on eye exam. (Dr. Floewrs) - Patient is needs urine testing for microalbum in. (ARB); Will order at next visit. - Patient verbalized understand ing of treatment plan. All questions answered. -Last labs on 07/13/18BUN 18Creatini ne 0.88GFR 91AST 20ALT 21MACR positive (119) 01/10/18 Hyperlipidemia 23908850 E78.5 Goal LDL is under 100 mg/dl. Last LDL: 105 on 07/13/18Tri glycerides : 284 Continue pravastati n as prescribed per PCP.Contin ue dietary changes as recommende d. Essential hypertension 80065728 I10 Goal B.P is less than 140/90 mmHg. Continue current anti-hyper tensive medication s as appropriat e per patient s PCP. Renal diso rder due to type 2 diabetes mellitus 592190721 E11.22 MACR positive (119) on 01/10/18.Co ntinue losartan therapy as ordered. Candidiasis of skin 4988 3006 B37.2 -Start diflucan as below. [id number] MIQUEL HERRMANN MD [facility] [address] [place] [address] 01/19/2019 15:07:43 01/19/2019 15:42:54 Hypertensive disorder 24516129 I10 Hypertensi on is controlled . Hyperlipidemia 77706934 E78.5 Chronic depression 75493 0009 F34.1 Chronic ob structive pulmonary disease 28236430 J44.9 Diabetic p eripheral neuropathy 086306990 E11.40 Patient has signed CSA and SILVINO is appropriat e Body mass index 40+ - severely obese 636168929 Z68.42 Continue weight loss efforts. [id number] MIQUEL HERRMANN MD [facility] [address] [place] [address] 05/09/2019 10:26:05 05/09/2019 11:25:59 Strain of neck muscle 408843113 S16.1XXA Medrol Dosepak as directed since he can't take anti-infla mmatories. He can't tolerate steroids okay. Arrange physical therapy. Screening for malignant neoplasm of colon 113513243 Z12.11 Insomnia 946299136 G47.0 0 Discontinu e Benadryl begin trazodone as directed. Side effects discussed with patient Chronic ob structive pulmonary disease 24253504 J44.9 Steroid pack should help his residual COPD exacerbati on and if not he will let me know. Normal grief reaction 27 0432307 F43.20 I expressed my condolence s to Mr. Allen and his daughter on the of his and her mother [id number] JERRY ROSENTHALSETH ENDOCRINO LOGY [address] [place] [address] 05/10/2019 14:05:21 05/10/2019 15:12:59 Uncontrolled type 2 diabetes mellitus 155063739 E11.65 Diabetes mellitus Type 2, uncontroll ed. [...] 1.10GFR 70AST 22ALT 22MACR positive (100) Hyperlipidemia 43858431 E78.5 Goal LDL is under 100 mg/dl. Last LDL: 105 on 07/13/18Tri glycerides : 284 Pt reports not taking pravastati n. Has refills on file. Advised patient to restart. Continue pravastati n as prescribed per PCP.Contin ue dietary changes as recommende d. Essential hypertension 96050438 I10 Goal B.P is less than 140/90 mmHg. Continue current anti-hyper tensive medication s as appropriat e per patient s PCP. Renal diso rder due to type 2 diabetes mellitus 429115918 E11.22 MACR positive (119) on 01/10/18.Co ntinue losartan therapy as ordered. [id number] [facility] CLOSED [address] [place] [address] 05/28/2019 11:38:17 05/28/2019 13:55:27 [id number] [facility] CLOSED [address] [place] [address] 1 06/04/2019 11:47:24 06/04/2019 12:06:08 [id number] YANNI COBIAN PA-C [address] [place] [address] 06/07/2019 12:54:56 06/07/2019 13:25:43 Essential hypertension 92142294 I10 continue with amlodipine and his losartan. Two-week follow-up. Reduce sodium diet. Work on weight loss. 2 weeks Administra tion of influenza vaccine 01247966 Z23 [id number] [facility] CLOSED [address] [place], [place] [address] 06/25/2019 11:43:55 06/25/2019 12:09:11 [id number] YANNI COBIAN PA-C [address] [place] [address] 06/29/2019 13:43:40 06/29/2019 14:18:27 Hypertensive disorder 32721775 I10 reduced sodium diet. monitor and keep log of BP Active or passive immunization 612042214 Z23 Screening colonoscopy 44 1659628 Z12.11 [id number] [facility] CLOS[facility] [address] [place] [address] 07/09/2019 10:45:23 07/09/2019 11:14:41 [id number] MIQUEL HERRMANN MD [facility] [address] [place] [address] 07/23/2019 14:01:13 07/23/2019 15:32:24 Adult health examination 822666174 Z00.00 Hypertensive disorder 38 675560 I10 Hypertensi on is controlled . Hyperlipidemia 14865293 E78.5 I explained that I didn't think pravastati n was causing penile rash or memory difficulti es. Discussed the benefits outweigh the risk. He will continue it. Chronic depression 47213 0009 F34.1 Chronic ob structive pulmonary disease 16752127 J44.9 Diabetic p eripheral neuropathy 878062403 E11.40 Patient has signed CSA and SILVINO is appropriat e Body mass index 40+ - severely obese 382473203 Z68.42 Continue weight loss efforts. Memory impairment 582553 006 R41.3 We'll check TSH and B12. If his symptoms should worsen, he will let me know within arrange referral to neurology. 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 [...] 92AST 18ALT 24MACR positive (100) 01/19/19 Hyperlipidemia 74995528 E78.5 Goal LDL is under 100 mg/dl. Last LDL: 93 on 07/23/19Trig lycerides: 138 Continue pravastati n as prescribed per PCP.Contin ue dietary changes as recommende d. Essential hypertension 34679016 I10 Goal B.P is less than 140/90 mmHg. Continue current anti-hyper tensive medication s as appropriat e per patient s PCP. Renal diso rder due to type 2 diabetes mellitus 025370168 E11.22 MACR positive (100) on 01/19/19.Con tinue losartan therapy as ordered. [id number] [facility] CLOSED [address] [place] [address] 08/17/2019 10:49:39 08/17/2019 11:02:31 [id number] ELIZABETH CERNA, DO DERMATOLO [facility] [address] [place] [address] 08/20/2019 11:08:39 08/20/2019 13:30:12 Neoplasm of uncertain behavior of skin 45109091 D48.5 L adventist somewhat deeper, possibly subcutaneo us neoplasm punch biopsy sent for path r/o carcinoma vs subq neoplasm/n os Wound care discussed with patient. Leave the bandage on for 24 hrs. Clean the area daily with warm soapy water, and apply polysporin ointment and a bandaid once daily until healed. Call the office if any increase in redness, drainage, or pain. Raised loly orrheic keratosis 8114186123 90856 L82.1 If any lesions change, or if any other new or symptomati c lesions occur, patient understand s to return to the clinic for further evaluation Discussed sun precaution s; SPF 30+ Inflamed s eborrheic keratosis 139144919 L82.[address] per patients request: bilateral clavicles x4 , L upper back x1 pt tolerated well advised pt what to expect with freezing Skin sensa tion disturbance 04725365 R20.9 ISK Solar lentiginosis 75438 2007 L81.4 benign reassuranc e sunscren hats [id number] CELIA MONGE PA-C FAMILY [address] [place] [address] 08/20/2019 12:20:22 08/20/2019 14:14:14 Anxiety 92855358 F41.9 will prescribe a few ativan for patient for upcoming dental procedures . this has worked well for his anxiety in the past. Silvino appropriat e on 07/20/19. CSA signed. UDS negative-a ppropriate . [id number] [facility] CL[facility] [address] [place] [address] 08/31/2019 11:40:51 08/31/2019 11:53:12 [id number] EVITA DIAMOND MD SURGERY SCHEDULE [address] [place] [address] 09/04/2019 08:11:04 09/04/2019 08:12:56 [id number] [facility] CLOSED [address] [place] [address] 09/14/2019 11:42:23 09/14/2019 11:54:38 [id number] [facility] CLOSED [address] [place] [address] 10/25/2019 14:34:41 10/25/2019 14:48:31 [id number] JERRY ROSENTHAL APRN ENDOCRINO LOGY [address] [place] [address] 11/15/2019 13:07:42 11/15/2019 13:33:40 Uncontrolled type 2 diabetes mellitus 363425402 E11.65 Diabetes mellitus Type 2, uncontroll ed. [...] 92AST 18ALT 24MACR positive (100) 01/19/19 Hyperlipidemia 74261785 E78.5 Goal LDL is under 100 mg/dl. Last LDL: 93 on 07/23/19Trig lycerides: 138 Continue pravastati n as prescribed per PCP.Contin ue dietary changes as recommende d. Essential hypertension 92230031 I10 Goal B.P is less than 140/90 mmHg. Continue current anti-hyper tensive medication s as appropriat e per patient s PCP. Renal diso rder due to type 2 diabetes mellitus 029548209 E11.22 MACR positive (100) on 01/19/19.Con tinue losartan therapy as ordered. [id number] MIQUEL HERRMANN MD [facility] [address] [place] [address] 11/16/2019 13:27:55 11/19/2019 08:40:45 Chronic obstructive pulmonary disease 26025236 J44.9 Prednisone as directed. He is aware of potential side effects of prednisone . Continue inhalers as directed. I encouraged him to follow up with his pulmonolog ist next week. If he is acutely worse, he will go to the emergency room Diarrhea 65329582 R19.7 Diarrhea has resolved. If it should recur and worsen, he will let me know Fatigue 27290032 R53.83 We'll check fatigue labs. I suspect his fatigue is largely due to his COPD. [id number] [facility] CLOSED [address] [place] [address] 11/29/2019 12:31:51 11/29/2019 12:35:35 [id number] CELIA MONGE PA-C [address] [place] [address] 01/10/2020 13:05:49 01/10/2020 14:46:26 Chronic obstructive pulmonary disease 96325557 J44.9 pt has chronic SOA on symbicort. has failed spiriva and advair. using nebs and albuterol inhaler frequently . [facility], but he would like O2. he stays short of air 10/01. need appt for eval for this. Fatigue 23557318 R53.83 chronic fatigue. never came in for labs in late october. will order. [id number] MIQUEL HERRMANN MD FAMILY [address] [place] [address] 01/28/2020 14:25:49 01/28/2020 15:19:26 Hypertensive disorder 13559709 I10 Hypertensi on is controlled . Hyperlipidemia 55320141 E78.5 Chronic depression 03307 0009 F34.1 Chronic ob structive pulmonary disease 78127145 J44.9 He will follow-up with his pulmonolog ist at the [place] and discuss oxygen. Diabetic p eripheral neuropathy 727457851 E11.40 Patient has signed CSA and SILVINO is appropriat e Body mass index 40+ - severely obese 765616388 Z68.42 Continue weight loss efforts. Memory impairment 097194 006 R41.3 Mild. If it should worsen, he will let me know and we can arrange referral to neurology [id number] JERRY ROSENTHAL APRN ENDOCRINO LOGY [address] [place] [address] 03/11/2020 14:01:47 03/11/2020 14:45:04 Uncontrolled type 2 diabetes mellitus 011491364 E11.65 Diabetes mellitus Type 2, uncontroll ed. [...] 86AST 24ALT 33MACR positive (100) 01/19/19 Hyperlipidemia 08549249 E78.5 Goal LDL is under 100 mg/dl. Last LDL: 124 on 01/28/20Tri glycerides : 291 Continue pravastati n as prescribed per PCP.Contin ue dietary changes as recommende d. Essential hypertension 28177266 I10 Goal B.P is less than 140/90 mmHg. Continue current anti-hyper tensive medication s as appropriat e per patient s PCP. Renal diso rder due to type 2 diabetes mellitus 298914101 E11.22 MACR positive (100) on 01/19/19.Con tinue losartan therapy as ordered. [id number] ISAAK FLOWERS MD OPHTHALMO LOGY [address] [address] 04/03/2020 14:06:20 04/03/2020 16:44:47 Type 1 diabetes mellitus 26040420 E10.9 Bilateral pseudophakia [id number] 2738312 Z96.1 Myopic astigmatism 86087 4005 H52.209 Presbyopia 16359388 H52. 4 [id number] MIQUEL HERRMANN MD [facility] [address] [place] [address] 06/16/2020 15:03:58 06/16/2020 16:22:36 Chronic obstructive pulmonary disease 37849834 J44.9 O2 level is 93% at rest and 84% after walking briefly. Arrange home oxygen at 2 L/m per nasal cannula. Arrange referral to pulmonary. Continue current inhalers. If he should acutely worsen, he will go to the emergency room. Snoring 65370012 R06.83 Arrange appointmen t with pulmonary Administra tion of influenza vaccine 68760303 Z23 [id number] SILVESTRE MCLAIN PA-C PULMONARY [address] [facility], [address] [place] [address] 07/10/2020 12:59:17 07/11/2020 10:03:15 Dyspnea on exertion 02037929 R06.09 chest x-ray does not show infiltrate today. exercise pulse oximetry shows oxygen saturation on room air of 88%. PFTs do not show evidence of COPD. DLCO is normal. May also need cardiac evaluation . Increased risks of cardiac disease due to HTN, obesity, and diabetes. Hypoxemia 648439258 R09. [address] PE protocol ordered for hypoxemia. Patient will also need an echocardio gram with a bubble study to evaluate for CHF, pulmonary hypertensi on, and a shunt. CT chest PE protocol ordered for tomorrow morning. will call with result. he would be at increased risk for DVT/PE due to obesity. Former hea vy tobacco smoker 5886922700 86899 Z87.891 patient is a candidate for CT chest lung cancer screening. He has a 32-pack-ye ar smoking history. This is not ordered today because a CT PE protocol was ordered. Morbid obesity 940978502 E66.01 hypoxemia may be related to obesity hypoventil ation syndrome. Patient will be returning to clinic tomorrow for an ABG (had to leave today) Snoring 24091780 R06.83 patient will also neck need an in lab sleep study to evaluate for SARAI. [id number] HERMAN MONTOYA MD PULMONARY [address] [facility], [address] [place] [address] 07/11/2020 12:22:59 07/11/2020 13:03:29 Dyspnea on exertion 00964745 R06.09 [id number] JERRY ROSENTHAL APRN ENDOCRINO LOGY [address] [place] [address] 07/16/2020 13:54:54 07/16/2020 14:37:50 Multiple complications due to type 2 diabetes mellitus 507960277 E11.8 Diabetes mellitus Type 2, controlled . A 1c in office today of 6.8%, up from 8.3%. G oal A1C by ADA criteria is less than 7%. Random blood glucose 198. Recommenda tions: -Congratul ated pt on significan t improvemen t in A1c! -Continueh umulin R U-500. [id number] efore breakfast, 105ubefore dinner, [id number] re bedtime snack. Take this insulin 20-30minbe [...] 86AST 24ALT 33MACR positive (100) 01/19/19 Hyperlipidemia 81449555 E78.5 Goal LDL is under 100 mg/dl. Last LDL: 124 on 01/28/20Tri glycerides : 291 Continue pravastati n as prescribed per PCP.Contin ue dietary changes as recommende d. Essential hypertension 27640045 I10 Goal B.P is less than 140/90 mmHg. Continue current anti-hyper tensive medication s as appropriat e per patient s PCP. Renal diso rder due to type 2 diabetes mellitus 430068792 E11.22 MACR positive (100) on 01/19/19.Con tinue losartan therapy as ordered.Re peat MACR. [id number] ISAAK CASTRO MD ECHO [facility]ASCULAR LAB [address] [place] [address] 07/21/2020 13:50:01 07/22/2020 09:13:55 Dyspnea on exertion 49535413 R06.09 [id number] MIQUEL HERRMANN MD [facility] [address] [place] [address] 08/12/2020 15:09:47 08/12/2020 15:45:22 Adult health examination 528724586 Z00.00 Hypertensive disorder 38 369992 I10 Hypertensi on is controlled . Hyperlipidemia 01012237 E78.5 Chronic depression 86997 0009 F34.1 Stable. Continue fluoxetine Chronic ob structive pulmonary disease 47162219 J44.9 [facility] Diabetic p eripheral neuropathy 896977235 E11.40 Patient has signed CSA and SILVINO is appropriat e Body mass index 40+ - severely obese 987138598 Z68.42 Continue weight loss efforts. Screening for malignant neoplasm of prostate 813357546 Z12.5 [id number] MIQUEL HERRMANN MD [facility] [address] [facility] [place] [place] [address] 09/25/2020 13:44:45 09/25/2020 14:14:10 Venous insufficiency of lower limb 354003312 I87.2 I explained venous insufficie ncy to patient and his . Elevate legs. Consider compressio n hose. Amlodipine may be contributi ng some decreased the dosage. Also will begin HCTZ. Hypertensive disorder 38 088367 I10 Hypertensi on is controlled Decrease amlodipine to 5 mg daily and begin HCTZ 12.5 mg every morning. Monitor blood pressure and he will let me know if he doesn't stay below 140/90 Sprain of shoulder rotator cuff 9604716634 04 S43.422A Left rotator cuff sprain Alternate heat and ice to area. Tylenol as directed. If not improving, we'll arrange referral to physical therapy. [id number] JERRY ROSENTHAL APRN ENDOCRINO LOGY [address] [place] [address] 11/10/2020 13:04:09 11/10/2020 15:49:36 Multiple complications due to type 2 diabetes mellitus 373620558 E11.8 Diabetes mellitus Type 2, controlled . [...] ALT 33 MACR positive (249) 07/16/20 Hyperlipidemia 48493503 E78.5 Goal LDL is under 100 mg/dl. Last LDL: 124 on 01/28/20Tri glycerides : 291 Continue pravastati n as prescribed per PCP.Contin ue dietary changes as recommende d. Essential hypertension 47719842 I10 Goal B.P is less than 140/90 mmHg. Continue current anti-hyper tensive medication s as appropriat e per patient s PCP. Renal diso rder due to type 2 diabetes mellitus 275503108 E11.22 MACR positive (249) on 07/16/20. Continue losartan therapy as ordered. [id number] MIQUEL HERRMANN MD [facility] [address] [place] [address] 02/09/2021 14:37:31 02/09/2021 15:51:14 Diabetic peripheral neuropathy 304104235 E11.40 Patient has signed CSA and SILVINO is appropriat e. Continue gabapentin COVID-[address] scan consistent with COVID-19 pneumonia along with significan t desaturati on with minimal exertion. I encouraged him to go back to the emergency room right away and he states that he will do so. 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 Call with changing/f luxuating vision. [id number] JERRY ROSENTHAL APRN ENDOCRINO LOGY [address] [place] [address] 08/03/2021 11:35:06 08/11/2021 14:09:26 Multiple complications due to type 2 diabetes mellitus 503309927 E11.8 Diabetes mellitus Type 2, uncontroll ed. [...] ALT 19 MACR positive (249) 07/16/20 Hyperlipidemia 71431245 E78.5 Goal LDL is under 100 mg/dl. Last LDL: 75 on 08/12/20Tri glycerides : 235Continu e pravastati n as prescribed per PCP.Contin ue dietary changes as recommende d. Essential hypertension 28919352 I10 Goal B.P is less than 140/90 mmHg. Continue current anti-hyper tensive medication s as appropriat e per patient s PCP. Renal diso rder due to type 2 diabetes mellitus 054412650 E11.22 MACR positive (249) on 07/16/20. Continue losartan therapy as ordered. [id number] MIQUEL HERRMANN MD FAMILY [address] [place] [address] 04/28/2021 10:14:41 04/28/2021 12:09:14 Hypertensive disorder 16722137 I10 Hypertensi on is controlled . Continue current medication s Hyperlipidemia 41624228 E78.5 Continue pravastati n and a low-choles terol diet Chronic depression 59399 0009 F34.1 Stable. Continue fluoxetine Chronic ob structive pulmonary disease 35055497 J44.9 [facility]. I encouraged patient to follow-up with his pulmonolog ist soon Diabetic p eripheral neuropathy 543261573 E11.40 Patient has signed CSA and SILVINO is appropriat e Body mass index 40+ - severely obese 693533239 Z68.42 Continue weight loss efforts. Pneumonia 131426304 J18. 9 Patient had recent pneumonia we will check chest x-ray. He still has cough productive of discolored sputum. Doxycyclin e as directed. Bilateral rotator cuff tendinitis 9594902394 2286257 M67.813 I encouraged patient to see his orthopedic surgeon soon. Continue Tylenol as directed for discomfort . [id number] KARUNA ALDRIDGE MD UROLOGY SB CLOSED [address] [place] [address] 05/19/2021 14:24:24 05/20/2021 08:40:14 Lichen sclerosus of penis 502012820 N48.0 Lower urin terence tract symptoms due to benign prostatic hypertrophy 6444802764 9101 N40.1 Screening for malignant neoplasm of prostate 833063138 Z12.5 Urinary incontinence 165 726903 R32 Morbid obesity 966325345 E66.01 Type 2 katie betes mellitus without complication 911949320 E11.9 [id number] KARUNA ALDRIDGE MD SURGERY SCHEDULE [address] [place] [address] 07/13/2021 11:43:00 07/13/2021 11:44:06 Lichen sclerosus of penis 494442160 N48.0 Lower urin terence tract symptoms due to benign prostatic hypertrophy 7517096022 9101 N40.1 Urinary incontinence 165 499875 R32 Morbid obesity 983706478 E66.01 Type 2 katie betes mellitus without complication 064804680 E11.9 [id number] MIQUEL HERRMANN MD [address] [place] [address] 07/28/2021 11:30:32 07/28/2021 12:06:14 Hyperlipidemia 73958422 E78.5 Hold pravastati n for now. Consider alternativ e to pravastati n if Dr. Cerna believes rash is related to pravastati n. Chronic dermatitis 73489 007 L30.9 Dermatitis of the lower legs which has a consistenc y of venous stasis dermatitis but could be drug reaction to pravastati n. Arrange referral to Dr. Cerna for further evaluation and his opinion. If Dr. Cerna feels like it is venous stasis dermatitis then will restart pravastati n. Administra tion of influenza vaccine 43685096 Z23 [id number] EZEKIEL TY PA-C DERMATOLO [address] ,[address] [place] [address] 08/05/2021 13:35:11 08/05/2021 14:47:39 [facility] 00065138 L81.7 His legs are not swollen as would be expected with stasisHe stopped wearing compressio n stockings because his feet were no longer swelling, then noticed rash.Discu ssed benign diagnosis, I do not believe there is any relation to pravastati n and am OK with him restarting this medication .Non-pruri tic, recommend restart compressio n stockings Inflamed s eborrheic keratosis 190840046 L82.0 LN x 1 After care instructmelody fernandez provided Surgical s ite reaction 624944353 T81.9XXA s/p Left shoulder rotator cuff repair with Dr. Kuo in [facility] in November. He is still having pain in the area. There is no evidence of cellulitis or acute contact dermatitis . He failed tx with triamcinol one 0.1% BID for several weeks. His surgeon suspects an allergic reaction to subepiderm al sutures, discussed with him may take 1 year to dissolve. I recommende d he continue post op care with Dr. Kuo [id number] MIQUEL HERRMANN MD FAMILY MED[facility]INE [address] [place] [address] 08/18/2021 10:15:13 08/18/2021 11:39:01 Administration of pneumococcal vaccine 43673625 Z23 [id number] JERRY ROSENTHAL APRN ENDOCRINO LOGY SB [address] [place] [address] 10/09/2021 09:08:20 10/09/2021 09:59:25 Multiple complications due to type 2 diabetes mellitus 928642318 E11.8 Diabetes mellitus Type 2, uncontroll ed. [...] dexcom today. Advised him to bring in heel finisher in 2 weeks for download and further [...] ALT 19 MACR positive (249) 07/16/20 Hyperlipidemia 71423932 E78.5 Goal LDL is under 100 mg/dl. Last LDL: 75 on 08/12/20Tri glycerides : 235Pt discontinu ed pravastati n d/t rash. Has upcoming appt with PCP to discuss alternativ es.Continu e dietary changes as recommende d. Essential hypertension 19792768 I10 Goal B.P is less than 140/90 mmHg. Continue current anti-hyper tensive medication s as appropriat e per patient s PCP. Renal diso rder due to type 2 diabetes mellitus 468090859 E11.22 MACR positive (249) on 07/16/20. Continue losartan therapy as ordered. [id number] MIQUEL HERRMANN MD FAMILY MED[facility]INE [address] [place] [address] 10/26/2021 12:55:48 10/26/2021 13:43:55 Adult health examination 519387159 Z00.00 Hypertensive disorder 38 070406 I10 Hypertensi on is controlled . Continue current medication s Hyperlipidemia 78897658 E78.5 Consider Zetia if his LDL remains elevated since he had rash with pravastati n. Chronic depression 51012 0009 F34.1 Stable. Continue fluoxetine Chronic ob structive pulmonary disease 91273345 J44.9 [facility]. Diabetic p eripheral neuropathy 973495380 E11.40 Patient has signed CSA and SILVINO is appropriat e. Stable. Continue gabapentin Body mass index 40+ - severely obese 699365005 Z68.42 Continue weight loss efforts. Bilateral rotator cuff tendinitis 9905099006 4487862 M67.813 Continue plan per orthopedis t Decreased hearing 797630 001 H91.90 Arrange audiology referral Screening for malignant neoplasm of prostate 932285491 Z12.5 Patient will share PSA results with Dr. Leung Chronic low back pain 27 3992400 M54.50 Tylenol as directed for discomfort . Heat and ice to area. Lower urin terence tract symptoms due to benign prostatic hypertrophy 0509068614 9101 N40.1 Continue tamsulosin and keep follow-up next week with Dr. Leung [id number] JERRY ROSENTHAL APRN ENDOCRINO LOGY SB [address] [place] [address] 04/21/2022 13:09:02 04/21/2022 14:14:22 Multiple complications due to type 2 diabetes mellitus 461023059 E11.8 Diabetes mellitus Type 2, uncontroll ed. [...] ALT 21 MACR positive (249) 07/16/20 Hyperlipidemia 55999956 E78.5 Goal LDL is under 100 mg/dl. Last LDL: 75 on 08/12/20Tri glycerides : 235Pt discontinu ed pravastati n d/t rash. Has upcoming appt with PCP to discuss alternativ es.Continu e dietary changes as recommende d. Essential hypertension 41876184 I10 Goal B.P is less than 140/90 mmHg. Continue current anti-hyper tensive medication s as appropriat e per patient s PCP. Renal diso rder due to type 2 diabetes mellitus 007482051 E11.22 MACR positive (249) on 07/16/20. Continue losartan therapy as ordered. [id number] MIQUEL HERRMANN MD [facility] [address] [place] [address] 05/11/2022 14:35:47 05/11/2022 15:10:55 Hypertensive disorder 16634002 I10 Hypertensi on is controlled . Continue current medication s Hyperlipidemia 83287139 E78.5 Discontinu e Zetia. Patient would like to restart pravastati n. He thought it was causing a rash but he does have venous stasis dermatitis which did not change after he went off pravastati n. Chronic depression 10274 0009 F34.1 Stable. Continue fluoxetine Chronic ob structive pulmonary disease 37426867 J44.9 Stable. Continue active management per [place] pulmonolog ist. Diabetic p eripheral neuropathy 291953691 E11.40 Patient has signed CSA and SILVINO is appropriat e. Stable. Continue gabapentin Body mass index 40+ - severely obese 582722766 Z68.42 Continue weight loss efforts. Chronic low back pain 27 9036282 M54.50 Stable. Continue Tylenol as directed Lower urin terence tract symptoms due to benign prostatic hypertrophy 6538036996 9101 N40.1 Stable. Continue t[address] Leung Lichen scl erosus of penis 676820383 N48.0 Continue current treatment and follow-up with urologist [id number] MIQUEL HERRMANN MD [facility] [address] [place] [address] 06/08/2022 15:20:43 06/08/2022 15:47:[address] segment elevation myocardial infarction 3103320947 23165 Z86.79 Stable. Continue Brilinta, bisoprolol and active management per his cardiologi st, Dr. Sofia. He is doing remarkably well after his recent MS. Normal grief reaction 27 6094263 F43.20 I expressed my condolence s to Mr. Allen and his daughter on the of his mother-in- law. 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 [...] 18 ALT 20 MACR positive (303) Hyperlipidemia 58388404 E78.5 Goal LDL is under 100 mg/dl. Last LDL: 131 on 05/11/22Tr iglyceride s: 243Continu e atorvastat in per PCP/ cardiology .Continue dietary changes as recommende d. Essential hypertension 53341184 I10 Goal B.P is less than 140/90 mmHg. Continue current anti-hyper tensive medication s as appropriat e per patient s PCP. Renal diso rder due to type 2 diabetes mellitus 383760340 E11.22 MACR positive (303) on 04/21/22 Continue losartan therapy as ordered. [id number] YANNI COBIAN PA-C [facility] [address] [place] [address] 09/06/2022 14:05:42 09/06/2022 14:47:23 Acute left otitis media 347121709 H66.92 ? perforatio n. Patient to finish out his antibiotic s both oral and drops. Avoid Q-tips. ENT referral [id number] CELIA MONGE PA-C [address] [place] [address] 09/09/2022 09:40:11 09/09/2022 10:35:18 Neck pain 94027699 M54.2 Flareup of neck pain about 1 [...] not improving with physical therapy. Cervical radiculopathy 41578072 M54.12 Left cervical radiculopa thy. If patient [...] persists, he will need further imaging studies. [id number] EZEKIEL TY PA-C [facility] [address] [place] [address] 10/26/2022 11:07:27 10/26/2022 11:36:24 Patient advised about exposure to the sun 722041916 Z71.89 Counseled on sun protective clothing/h ats and daily UV protection with otc broad-spec trum SPF 30+ on exposed areas. Regular self-skin exams recommende d. Pt encouraged to RTC with any new/changi ng lesions. Lentiginosis 026762156 L 81.4 Benign reassuranc e Raised loly orrheic keratosis 3163814048 86556 L82.1 Benign reassuranc e Sebaceous hyperplasia 23 0621074 L21.8 Benign reassuranc e Hemangioma 066009312 D18 .00 Benign reassuranc e Neurofibroma 563303760 D 36.10 Benign reassuranc eAsx [id number] MD [facility] [address] [place] [address] 10/28/2022 15:31:17 10/28/2022 16:45:31 Blood in ear canal 415315807 H92.23 10/28/22- Normal otoscopic appearance s. Both TM's intact. Deviated nasal septum 12 9068152 J34.2 -To the right. Coronary arteriosclerosis 45439032 I25.10 Moderate p ersistent asthma 138668285 J45.40 Type 1 katie betes mellitus 23356928 Z79.4 [id number] MIQUEL HERRMANN MD [facility] [address] [place] [address] 11/08/2022 13:53:32 11/08/2022 15:29:43 Adult health examination 357541990 Z00.00 Screening for malignant neoplasm of colon 972509242 Z12.11 Colonoscop y 09/04/19 revealed diverticul osis. Repeat in 2029. Screening for malignant neoplasm of prostate 795175867 Z12.5 Patient will share PSA results with Dr. Leung Hepatitis C screening 41 5578754 Z11.59 Has patient ever had Hep C screening? YES Hypertensive disorder 38 270235 I10 Hypertensi on is controlled . Continue valsartan/ HCTZ. Hyperlipidemia 76464095 E78.5 Discontinu e Zetia. Patient would like to restart pravastati n. He thought it was causing a rash but he does have venous stasis dermatitis which did not change after he went off pravastati n. Chronic ob structive pulmonary disease 85065233 J44.9 Stable. Continue active [facility] per [facility]. Diabetic p eripheral neuropathy 265502554 E11.40 Patient has signed CSA and SILVINO is appropriat e. Stable. Continue gabapentin Body mass index 40+ - severely obese 895691279 Z68.42 Continue weight loss efforts. Chronic low back pain 27 8395824 M54.50 Stable. Continue Tylenol as directed Lower urin terence tract symptoms due to benign prostatic hypertrophy 3657244307 9101 N40.1 [address]able. Continue t[address] Leung Lichen scl erosus of penis 820802527 N48.0 Continue current treatment and follow-up with urologist Recurrent major depression 34850890 F33.9 Stable. Continue fluoxetine Morbid obesity 536009492 E66.01 Continue weight loss efforts. Fatigue 93574535 R53.83 I explained that fatigue is multifacto rial and he has several reasons to feel fatigued including morbid obesity, being sedentary, COPD and uncontroll ed diabetes. He also has depression which can contribute . Coronary arteriosclerosis 23346502 I25.10 Stable. Continue active management per cardiologi st [id number] JERRY ROSENTHAL APRN END[facility]CR[facility] [address] [place] [address] 12/22/2022 14:17:24 12/22/2022 15:13:00 Multiple complications due to type 2 diabetes mellitus 817224874 E11.8 A 1c in office today of 8.7%, up from 7.9%, 08/18/22. G oal A1C by ADA criteria is less than 7%. Random blood glucose 180. Recommenda tions: -Unable to connect to dexcom again in office today. Connection code and instructio ns provided. We will have the dexcom technology trainer reach out to him. Pt will notify us once he is connected. Discussed potential treatment options. He is interested in insulin pump. Met with [place] legal entity controller 11/2022. We will send PA for tandem [...] 19 ALT 19TSH 1.320MACR positive (303) Hyperlipidemia 69215209 E78.5 Goal LDL is under 100 mg/dl. Last LDL: 38 on 11/08/22Tri glycerides : 105Continu e atorvastat in per PCP/ cardiology .Continue dietary changes as recommende d. Essential hypertension 25030056 I10 Goal B.P is less than 140/90 mmHg. Continue current anti-hyper tensive medication s as appropriat e per patient s PCP. Renal diso rder due to type 2 diabetes mellitus 075894524 E11.22 MACR positive (303) on 04/21/22 Continue losartan therapy as ordered. [id number] JERRY ROSENTHAL APRN END[facility]CR[facility] [address] [place] [address] 03/02/2023 12:41:53 03/02/2023 14:49:00 Multiple complications due to type 2 diabetes mellitus 870462330 E11.8 A 1c in office today of [...] 19 ALT 19TSH 1.320MACR positive (303) Hyperlipidemia 88888757 E78.5 Goal LDL is under 100 mg/dl. Last LDL: 38 on 11/08/22Tri glycerides : 105Continu e atorvastat in per PCP/ cardiology .Continue dietary changes as recommende d. Essential hypertension 69881068 I10 Goal B.P is less than 140/90 mmHg.Jose Angel nue current anti-hyper tensive medication s as appropriat e per patient s PCP. Renal diso rder due to type 2 diabetes mellitus 616906055 E11.22 MACR positive (303) on 04/21/22 Continue losartan therapy as ordered. [id number] TONYA BOLAND MD OPHTH[facility]MO [facility] [address] ,[address] [place] [address] 03/01/2023 12:25:20 03/01/2023 13:39:55 Blepharitis 84523019 H01.00A H01.00B - discussed likely allergic etiology- Pataday, ATs, lid scrubs daily- start TobraDex TID for up to 2 weeks, then stop RTC as planned with Dr. Stoll, sooner as needed [id number] JERRY ROSENTHAL APRN END[facility]INO [facility] [address] [place] [address] 08/02/2023 10:57:43 08/02/2023 13:41:57 Multiple complications due to type 2 diabetes mellitus 113848539 E11.8 A 1c in office today of 7.3%, from 8.3%, 03/02/23. G oal A1C by ADA criteria is less than 7%. Random blood glucose 310. Recommenda tions:-Con tinous glucose monitor downloaded . Reports reviewed and discussed with patient.-Jacob garcia ed pt on improvemen t in A1c! [...] 35 ALT 34TSH 1.320MACR positive (303) Hyperlipidemia 24311564 E78.5 Goal LDL is under 100 mg/dl. Last LDL: 38 on 11/08/22Tri glycerides : 105Continu e atorvastat in per PCP/ cardiology .Continue dietary changes as recommende d. Essential hypertension 18012250 I10 Goal B.P is less than 140/90 mmHg.Jose Angel nue current anti-hyper tensive medication s as appropriat e per patient s PCP. Renal diso rder due to type 2 diabetes mellitus 182313021 E11.22 MACR positive (303) on 04/21/22 Continue losartan therapy as ordered. [id number] JERRY ROSENTHAL APRN [facility] [address] [place] [address] 11/30/2023 15:03:26 12/01/2023 08:13:13 Multiple complications due to type 2 diabetes mellitus 847156011 E11.8 A 1c in office today of 6.9%, from 7.3%, 08/02/23. G oal A1C by ADA criteria is less than 7%. Random blood glucose 131. Recommenda tions:-Con tinous glucose monitor downloaded . Reports reviewed and discussed with patient.-C ongratrosette ed pt on improvemen t in A1c! [...] 35 ALT 34TSH 1.320MACR positive (303) Hyperlipidemia 74336864 E78.5 Goal LDL is under 100 mg/dl. Last LDL: 38 on 11/08/22Tri glycerides : 105Continu e atorvastat in per PCP/ cardiology .Continue dietary changes as recommende d. Essential hypertension 55682993 I10 Goal B.P is less than 140/90 mmHg.Jose Angel nue current anti-hyper tensive medication s as appropriat e per patient s PCP. Renal diso rder due to type 2 diabetes mellitus 974472989 E11.22 MACR positive (303) on 04/21/22 Continue losartan therapy as ordered. [id number] ELIZABETH CERNA, [facility] [address] [place] [address] 03/08/2024 09:50:16 03/08/2024 11:06:10 Lentiginosis 823890707 L81.4 Benign reassuranc e recommende d sun protective clothing and a mineral based sunscreen 30 SPF or higher lotion OTC daily Raised loly orrheic keratosis 8669745244 71384 L82.1 Benign reassuranc e Sebaceous hyperplasia 23 5721867 L21.8 Benign reassuranc e Hemangioma 442541173 D18 .00 Benign reassuranc e Neurofibroma 178386128 D 36.10 Benign reassuranc ept stated spot was bothersome discussed removal today pt declined and will re-evaluat e at next visit. Senile purpura 17766642 D69.2 Benign Reassuranc e Inflamed s eborrheic keratosis 055740353 L82.[address] per patients request: Education then treated with LN; right upper cheek x1, left adventist [id number], bothersome LN at pt requestpt tolerated well advised pt what to expect with freezing [id number] MIQUEL STOLL MD OPHTHALMO [address] [address] 03/08/2024 10:58:06 03/08/2024 14:50:23 Type 2 diabetes mellitus without complication 384785483 E11.9 no retinopath y ou - (previousl [...] changing/f luxuating vision.1 year and pnr Pseudophakia 41154513 Z9 6.1 stable, obs [id number] MICHEAL HILARIO MD [place] [facility] [address] [place] [address] 06/18/2024 14:08:31 06/18/2024 16:06:41 Deviated nasal septum 036588828 J34.2 Coronary arteriosclerosis 32372844 I25.10 Moderate p ersistent asthma 751667136 J45.40 Type 1 katie betes mellitus 56555230 Z79.4 Laryngopha ryngeal reflux 192563353 K21.9 on a regimen of Pantoprazo le Chronic hoarseness 52886 38376 105 R49.0 06/18/24 Laryngeal Fiberoptic exam = Slight presbylary nx, glottic closure is not tight; no evidence of vocal nodules or polyps and certainly no evidence of neoplasia 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 0 7530364 J38.7 06/18/24 - Laryngeal Fiberoptic exam = Slight presbylary nx, glottic closure is not tight; no evidence of vocal nodules or polyps and certainly no evidence of neoplasia Pharyngeal dryness 27616 8009 J39.2 Allergic rhinitis 350137 04 J30.9 Chronic ob structive pulmonary disease 11562667 J44.9 [id number] JERRY ROSENTHAL APRN [facility] [address] [place] [address] 08/23/2024 10:26:20 08/23/2024 10:54:26 Multiple complications due to type 2 diabetes mellitus 145912612 E11.8 A 1c in office today of [...] 35 ALT 34TSH 1.320MACR positive (303) Hyperlipidemia 54943794 E78.5 Goal LDL is under 100 mg/dl. Last LDL: 38 on 11/08/22Tri glycerides : 105Continu e atorvastat in per PCP/ cardiology .Continue dietary changes as recommende d. Essential hypertension 10819423 I10 Goal B.P is less than 140/90 mmHg.Jose Angel nue current anti-hyper tensive medication s as appropriat e per patient s PCP. Renal diso rder due to type 2 diabetes mellitus 107249080 E11.22 MACR positive (303) on 04/21/22 Continue losartan therapy as ordered. [id number] JERRY ROSENTHAL APRN [facility] [address] [place] [address] 12/26/2024 13:26:17 12/26/2024 14:37:31 Multiple complications due to type 2 diabetes mellitus 412265332 E11.8 A 1c in office today of 7.2%, from 6.8%, 08/23/24. G oal A1C by ADA criteria is less than 7%. Random blood glucose 139. Recommenda tions:Cont inuous glucose monitor downloaded . Reports reviewed and discussed with patient.-D iscussed potential treatment options. Pt would like to switch from ozempic to mounjaro. Agreed on the following for now: -Continue humulin R U-500. Inject 40u in the AM and 30u before dinner. Take this insulin 20-30min before the meal.-Stop ozempic. Start Mounjaro 5mg once weekly for 4 weeks. Call for increased dose if needed after 1 month. Potential side effects discussed. - Patient is instructed to restrict his [...] plan. All questions answered. -Last labs on 08/23/24 BUN 26 Creatinine 1.04 GFR 77 AST 14 ALT 15TSH 1.130MACR positive (59- IMPROVED) Hyperlipidemia 99679864 E78.5 Goal LDL is under 100 mg/dl. Last LDL: 49 on 08/23/24Trig lycerides: 74Continue atorvastat in per PCP/ cardiology .Continue dietary changes as recommende d. Essential hypertension 10504650 I10 Goal B.P is less than 140/90 mmHg.Jose Angel nue current anti-hyper tensive medication s as appropriat e per patient s PCP. Renal diso rder due to type 2 diabetes mellitus 095077400 E11.22 MACR positive (59) on 08/23/24 Continue losartan therapy as ordered. Long-term current use of insulin 316643341 Z79.4 [id number] A 1c in office today of 6.8%, [...] AST 35 ALT 34TSH 1.320MACR positive (303) [id number] EVITA DIAMOND MD [facility] [address] [facility], [address] [place] [address] 03/01/2025 13:23:28 03/01/2025 15:40:24 Pile easily reducible 588119768 K64.8 7382402887 Advised pt self care, manual reduction and not to sit on toilet seat for a prolonged time. [id number] MIQUEL STOLL MD [facility] [address] [place] [address] DR,[address] [place] [address] 03/15/2025 10:50:46 03/15/2025 12:25:59 Type 2 diabetes mellitus without complication 859489111 E11.9 no retinopath y ouI discussed diabetes with this patient. I discussed the importance of sugar control for reducing risk of diabetic complicati ons in the eyes. I recommende d they follow up with their PCP/endocr inologist for continue sugar evaluation /managemen t. Also discussed importance of cardiovasc ular risk reduction. Call with changing/f luxuating vision.1 year and pnr Pseudophakia 82880699 Z9 6.1 stable, obsmr today Health Concerns Section Related Observation LastModified by Organization Detai ls LastModified Time None Recorded Concern Status LastModified by Organization Details LastModified Time None Recorded Advance Directives Directive N: Payers Insurance Date Sequence Insurance Name Policy Number Policy Lockett Covered Member ID Lockett Member ID Guarantor Name 04/28/2025 2 [place] [employer] - [employer] PROGRAM 111 Mqiuel Allen [id number] Miquel Allen 08/31/2018 1 *SELF PAY* Geri Allen 04/28/2025 1 [place] Miquel Allen [id number] Miquel Allen 07/21/2020 PAYMENT PLAN Miquel Allen Notes Date Note Type Note Provider Name and Address Organization Details Recorded Time 4 text/html ROS as noted in the HPI Miquel reports that he has been hoarse for the past several months. He has been on a regimen of Pantoprazole right before bed for his acid reflux. Miquel takes Claritin daily. MICHEAL HILARIO MD [address] [place] [address], [phone], [facility] 06/18/2024 17:38:11 5 text/html ROS as noted in the HPI Mr. Allen is a 69year old male [...] sensors are on back order. Currently using [employer] brand meter. Hx: Needs another left shoulder [...] weekly Review finger sticks: unable to download [id number] avg. 221 Duration: chronic Compliance: compliant with [...] calluses on feet; no SOB; no heart palpitations/racing heart Reports:dry mouth (stable- worse at night); intermittent blurred vision (stable); numbness/burning/tinglin g of feet worsened (stable- on neurontin per PCP); increased thirst (stable); 10lb weight gain since last visit; Chronic Complications:Diabetic retinopathy: NoDiabetic neuropathy: YesDiabetic nephropathy: NoHypertension: YesHyperlipidemia: Yes JERRY ROSENTHAL, [employer] [address] [place], [address], Critical access hospital 08/23/2024 12:18:59 5 text/html ROS as noted in the HPI Mr. Allen is a 69year old male patient with a past medical history significant for hypertension, hyperlipidemia, and uncontrolled type 2 diabetes complicated by peripheral diabetic neuropathy, who is seen at the office today for a follow up. At last visit, we continued his treatment regimen. Patient reports improved compliance and denies any side effects. Frequently titrating insulin dose. Using dexcom appropriately. Interested in litzyunjaro. Hx: Needs another left shoulder surgery 10/27, repair again (rotator cuff still torn, did not heal after last surgery on 11/24/20). UTT pravastatin d/t rash;Med hx: farxiga; metformin; victoza (nausea/vomiting) Current Treatment Regimen:Humulin R U-500 30-40u acb 20-40u acd Ozempic 2mg No recent episodes of hypoglycemia. Patient is able to recognize and treat appropriately. Diet: 1-2 meals per day- in the evening, some sweets after dinner Exercise: no regular exercise- retired-- knee pain- completed pulmonary rehab Review finger sticks: Dexcom G7Avg. 183SD 43TIR 49%Low 0%Very low <1% Duration: chronic Compliance: compliant with medications; compliant [...] calluses on feet; no SOB; no heart palpitations/racing heart Reports: dry mouth (stable- worse at night); intermittent blurred vision (stable); numbness/burning/tinglin g of feet worsened (stable- on neurontin per PCP); increased thirst (stable); 9lb weight loss since last visit; weakness in legs Chronic Complications:Diabetic retinopathy: NoDiabetic neuropathy: YesDiabetic nephropathy: NoHypertension: YesHyperlipidemia: Yes JERRY ROSENTHAL, SETH [address] [place], [address], Critical access hospital 12/26/2024 15:03:41 5 text/html This is a pleasant 69 yom here for the first time since 2019Current status:rectal concernsSymptoms: feels a soft lump near anus after BMs, no bleeding, retracts spontaneously with wiping. He does tend to sit on toilet for a while reading his phone.Treatments:manual self reductionAdditional info:last colonoscopy 2019 overall normal EVITA DIAMOND MD [facility] [place], [address] 03/01/2025 13:50:06 5 text/html ROS as noted in the HPI MIQUEL STOLL MD [address] [place] [address], [phone] 03/15/2025 12:20:47
--- OUTSIDE RECORDS SUMMARY | 2025-04-30 14:06 | XMS_ITS | Patient Health Record ---
[facility] Organization [facility] Address [address] [id number] Care Team Providers Care [employer] Machine Set Up Mechanic Name Role Phone Jacinda Demarco Primary Care Provider [phone] Allergies Allergen (clinical drug ingredient) Drug/Non Drug Allergy documented on EMR Reaction Allergy Type Onset Date Status aspirin Aspirin Unknown Drug Allergy Active Non-steroidal anti-inflammatory agent (FN) NSAIDs Unknown Drug Allergy Active Substance with sulfonamide structure and antibacterial mechanism of action (substance) Sulfa Antibiotics Unknown Drug Allergy Active Reason For Referral No Information Medications Medication SIG (Take, Route, Frequency, Duration) Notes Start Date End Date Status Cyclobenzaprine HCl 10 MG 1 TAB ORAL TID *Please review and pick correct strength-formulat ion from MyLorryspan options. If intended option is not shown, discontinue and re-order from Quick Search* 09/28/2015 Active Losartan Potassium 100 MG 1 tab(s) orally once a day Active Ativan 2 MG x1 dose 1 hour prior to procedure orally as directed 10/06/2015 Active Norvasc 5 MG 1 TAB PO QD *Please review and pick correct strength-formulat ion from Medispan options. If intended option is not shown, discontinue and re-order from Quick Search* Active Venlafaxine HCl 75 MG 1 TAB BID *Please re view and pick correct strength-formulat ion from [employer] options. If intended option is not shown, discontinue and re-order from Quick Search* Active Levemir FlexPen 100 UNITS/ML SUBCUTANEOUSLY QHS *Please review and pick correct strength-formulat ion from Medispan options. If intended option is not shown, discontinue and re-order from Quick Search* Active NovoLOG 100/ML SQ *Please review and pick correct strength-formulat ion from Medispan options. If intended option is not shown, discontinue and re-order from Quick Search* Active Lyrica 50 MG 1 cap(s) orally 3 times a day Active HYDROcodone-Acetamino phen 5-325 MG 1 tab(s) orally tid prn 09/28/2015 Active Plan Of Treatment No Information Insurance Providers Payer Name Payer Address Payer Phone Subscriber Number Group Number Insured Name Patient Relationship to Insured Coverage Start Date Coverage End Date [employer] [address] [place] [address] [phone] [id number] MIQUEL ZAVALA Self - patient is the insured [employer] [address] [place] [address] [id number] MIQUEL ZAVALA Self - patient is the insured [employer] [address] [place] [phone] [id number] MIQUEL ZAVALA Self - patient is the insured Medical (General) History 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 History ICD Code Essential (primary) hypertension I10 Diabetes E11.9 Depression F32.9 Surgical History Surgery Date(Month/Year) brow lift neck R knee replacement
--- OUTSIDE RECORDS SUMMARY | 2025-04-30 14:06 | XMS_ITS | Clinical Summary ---
Author Organization LITZY LOERA OD Address [address] [facility] [place] [address] Phone Care Team Providers Care Ward Service Supervisor Name Role Phone Catarino Ryan MD Primary Care Provider [phone] Allergies Active Allergy Reactions Criticality Noted Date [...] Sensor (DEXCOM G6 SENSOR) Misc Device by [employer].(Non-Drug; Combo Route) route. Active ezetimibe (ZETIA) 10 [...] (01/29/2022): Added automatically from request for surgery [id number] Lower urinary tract symptoms due to benign prostatic hyperplasia 10/26/2021 Tear of left rotator cuff 09/28/2021 Overview (09/28/2021): Added automatically from request for surgery [id number] Chronic obstructive lung disease 06/30/2017 Chronic depression [...] pu lmonary disease) ([facility]) Hypertension Hyperlipidemia ID (myocardial infarction) ([facility]) age of 26 [...] on file Sexual Orientation Not on file Last Filed [...] 1999 RSV or 60+ (1 - Risk 50-74 years 1-dose series) 2004 DTaP/TDaP/Td (2 - Td or Tdap) 12/02/2018 12/02/2008, 02/27/2007, 11/18/1996 Hemoglobin A1c 04/28/2022 10/26/2021 Kidney Health: eGFR 09/24/2022 09/24/2021 COVID-19 Vaccine ( season) 2025 04/19/2023, 04/21/2022, 01/26/2022, Additional history exists Influenza [...] this topic Medical Devices Implanted Type Area Mine Manager Device Identifier Shelf Expiration Date Model / Serial / Lot Knee Right: Knee Lens Bilateral: Eye Bone Bank Bone For Fusion Neck [place] Sut Y-Knt Self-Pnch Ndl - [id number] Implanted:Qty : 1 on 12/01/2020 by Partha Kuo MD at [facility] Left: Shoulder CONMED:LINVATEC 07/22/2025 [id number] / / [id number] [place] Sut Y-Knt Self-Pnch Ndl - [id number] Implanted:Qty : 1 on 10/27/2021 by Partha Kuo MD at [facility] Left: Shoulder CONMED:LINVATEC 06/01/2026 [id number] / / [id number] Liner Tib Sz Gh/6-9 10mm Persn Lt Kn Art Ps Fx Bear Melina-E - [id number] Implanted:Qty : 1 on 02/02/2022 by Partha Kuo MD at [facility] Left: Knee VILMA:VILMA [id number] 02/02/2026 [id number] / / [id number] Cement Refobacin 1x40 Gm Hvisc Bn Gent Lf - [id number] Implanted:Qty : 1 on 02/02/2022 by Partha Kuo MD at [facility] Left: Knee VILMA:VILMA 12/18/2023 [id number] / / [id number] Patlr 35mm Blayne Persn Pe Melina-E Ps Kn - [id number] Implanted:Qty : 1 on 02/02/2022 by Partha Kuo MD at [facility] Left: Knee VILMA:VILMA [id number] 11/17/2028 [id number] / / [id number] Comp Fem Sz8 Std Persn Lt Kn Ps Blayne Cocr Por - [id number] Implanted:Qty : 1 on 02/02/2022 by Partha Kuo MD at [facility] Left: Knee VILMA:VILMA 07/02/2031 [id number] / / [id number] Baseplate Tib Sz-G Stm Lt Kn Blayne Persn Sugar Tiv Norman 5d - [id number] Implanted:Qty : 1 on 02/02/2022 by Partha Kuo MD at [facility] Left: Knee VILMA:VILMA [id number] 08/17/2031 [id number] / / [id number] Procedures Procedure Name Priority Date/Time Associated Diagnosis [...] mL/min/1.7 3 m2 09/24/2021 7:58 PM EDT [facility] Comment:Estimated GFR was ca lculated using the CKD-EPIcr (2020) equation refit without race. The equation is recommended by the National Kidney Foundation - [place] [employer] of Nephrology Task Force. Blood VENOUS BLOOD / Unknown Venipuncture / Unknown 09/24/2021 5:30 PM EDT 09/24/2021 5:30 PM EDT us Miroslava Campo MD CHEMISTRY ORDERABLES Final R esult [facility] [address] [facility], [address] [place] [address] [facility] [address] [place] [address] from Last 3 Months or Most Recently Relevant to Health Maintenance Insurance MEDICARE [place] PART A AND B MEDICARE [place] PART A AND B [facility] Advance Directives For more information, please contact: [phone] Documents on File Type Date Recorded Patient Manager Communication Expl anation ADVANCE DIRECTIVE 10/27/2021 9:38 AM ADVANCE DIRECTIVE 12/01/2020 8:44 AM * Full Code (Latest Code Status on File) Date Activated Date Inactivated Comments 02/02/2022 12:31 PM 02/04/2022 7:00 PM Care Teams Ward Service Supervisor Relationship Specialty Start Date End Date Catarino Ryan MD [address] [place] [address] PCP - General Family Medicine 10/26/21
--- OUTSIDE RECORDS SUMMARY | 2025-04-30 14:06 | XMS_ITS | Continuity of Care Document ---
Author Organization [facility], GASTRO SB Address [address] [place] [address] Care Team Providers Care Brake Holder Name Role Phone JERRY ROSENTHAL Knit Goods Washer MIQUEL HANNA Rubber Roller Grinder MADELINE ALVAREZ II Primary Care Provider Assessment No assessment recorded. Plan of Treatment Reminders Order Date Submit Date Provider Last Modified By Organization Details Last Modified Time Details Appointments RECHECK 2024 02:15P M JERRY ROSENTHAL [employer] Not available Not available Not available DERM VISIT 2025 11:40A M ELIZABETH THACKER DO Not available Not available Not available LEVEL 2 2025 01:30P Iwona HANNA MD Not available Not available Not available Lab None recorded . Referral None recorded . Procedures None recorded . Surgeries None recorded . Imaging None recorded . Medication Orders None recorded . Patient TargetsNo targets recorded. Patient Instructions Encounter Date Encounter Id Patient Instructions Last Modified By Organization Details Last Modified Time 03/01/2025 [id number] I have discussed the situation, differential diagnosis, and recommendation with the patient. He express understanding and wishes to proceed as recommended. [email or web address] Not available 03/01/2025 13:49:48 Reason for Referral None Reported. 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 117705418 Active 2015 From [employer];Pro vider: Magdalena Fuentes;Sta tus: Active Not Available [facility] 7 06:21:34 Pain in right foot 08178637296 9107 Active 2015 From [employer] Load;Pro vider: Magdalena Fuentes;Sta tus: Active Not Available [facility] 7 06:45:00 Congenit al talipes calcaneo valgus 478177575 Active 2015 From [employer];Pro vider: Magdalena Fuentes;Sta tus: Active Not Available [facility] 7 07:05:37 Tracheob ronchiti s 85733176 Completed 201501/03/2017 From [employer];Pro vider: Celia Monge;St atus: Active MIQUEL HERRMANN MD [address] [place] [address], [address] , [facility] 7 13:46:47 Senile hyperker atosis 081360554 Active 2015 From [employer];Pro vider: Marilin Gonsales;St atus: Active Not Available [facility] 7 06:00:03 Neoplast ic disease Completed 201501/03/2017 From Autom[employer] Load;Pro vider: Marilin Gonsales;St atus: Active MIQUEL HERRMANN MD [address] [place] [address], [address] , [facility] 7 13:46:51 Pain in left foot 71062726911 9107 Completed 201501/03/2017 From Autom[employer] Load;Pro vider: Magdalena Fuentes;Sta tus: Active MIQUEL HERRMANN MD [address] [place] [address], [place], [address] , [facility] 7 13:46:55 Disorder of capillar ies 59088342 Active 2015 From Automate d Load;Pro vider: Marilin Gonsales;St atus: Active Not Available [facility] 7 07:51:38 Hyperten sive disorder 44870977 Active 2017 MIQUEL HERRMANN MD [facility] [place], [address] , [facility] 2 07:59:22 Hyperlip idemia 07029788 Active 2017 MIQUEL HERRMANN MD [facility] [place], [address] , [facility] 2 07:59:22 Chronic depressi on 223230798 Active 2017 MIQUEL HERRMANN MD [facility] [place], [address] , [facility] 2 07:59:22 Chronic obstruct an pulmonar y disease 50633660 Active 2017 MIQUEL HERRMANN MD [facility] [place], [address] , [facility] 2 07:59:22 Diabetic peripher al neuropat hy 146363619 Active 2017 MIQUEL HERRMANN MD [facility] [place], [address] , [facility] 2 07:59:22 Venous insuffic iency of lower limb 453294199 Active 2020 MIQUEL HERRMANN MD [facility] [place], [address] , [facility] 1 16:20:44 Multiple complica tions due to type 2 diabetes mellitus Active 2021 JERRY ROSENTHAL, SETH [address] [place], [address] , [facility] 2 12:26:29 Lower urinary tract symptoms due to benign prostati c hypertro phy 61573226036 101 Active 2021 MIQUEL HERRMANN MD [address] [place] [address], [address] , [facility] 2 08:02:53 Chronic low back pain 706851228 Active 2021 MIQUEL HERRMANN MD [address] [place] [address], [address] , [facility] 2 08:02:53 Body mass index 40+ - severely obese 694810604 Active 2021 MIQUEL HERRMANN MD [address] [place] [address], [address] , [facility] 2 08:02:[address] segment elevatio n myocardi al infarcti on 67904733087 9104 Active 2021 MIQUEL HERRMANN MD [address] [place] [address], [address] , [facility] 2 07:52:05 Morbid obesity 729153445 Active 2022 MIQUEL HERRMANN MD [address] [place] [address], [address] , [facility] 3 15:15:21 Recurren t major depressi on 18070144 Active 2022 MIQUEL HERRMANN MD [address] [place] [address], [address] , [facility] 3 15:23:59 Renal disorder due to type 2 diabetes mellitus 214980968 Active 2024 JERRY ROSENTHAL APRN [address] [place] [address], [address] , [facility] 5 13:45:35 Essentia l hyperten florinda 59805158 Active 2024 JERRY ROSENTHAL APRN [address] [place] [address], [address] , [facility] 5 13:45:35 Pile easily reducibl e 940697672 Active 2024 EVITA DIAMOND MD [address] [place] [address], [address] , [facility] 13:49:04 Problem Notes None recorded. Procedures Surgical History Date Name Laterality Status Provider Name and Address Organization Details Recorded Time Diabetic Foot Exam active JERRY ROSENTHAL APRN [address] [place], [address], [facility] 04/30/2025 08:43:41 025 Diabetic Foot Exam completed JERRY ROSENTHAL APRN [address] [place], [address], [facility] 12/24/2024 13:45:31 025 Diabetic Foot Exam completed JERRY ROSENTHAL APRN [address] [place], [address], [facility] 08/23/2024 12:17:37 024 [facility]24 15:35:17 024 Destruction BN Lesions completed ELIZABETH THACKER DO [address] [place], [address], [facility] 03/08/2024 17:02:10 022 TCM completed [facility] 06/03/2022 07:19:18 022 OCT/Retina completed MIQUEL HANNA MD [address] [place], [address], [facility] 06/07/2022 16:04:02 022 catheterization of left heart completed Shimon [facility] 06/03/2022 07:29:27 022 Destruction BN Lesions completed Damaris Johnson [facility] 08/05/2021 14:43:50 022 Cystoscopy - male completed KARUNA ALDRIDGE MD [address] [place], [address], [facility] 07/13/2021 13:19:21 021 Post Void Residual; Ultrasound completed Katina Camejo [facility] 05/19/2021 15:49:13 021 OCT/Retina completed MIQUEL HANNA MD [address] [place], [address], [facility] 03/06/2021 12:14:35 021 repair of shoulder completed Monica Osorio [facility] 02/09/2021 14:40:09 021 Bubbles Echocardiogram completed ISAAK CASTRO MD [address] [place], [address], [facility] 07/21/2020 15:43:23 021 Diffusion Capacity completed SILVESTRE MCLAIN PA-C [address] [place], [address], [facility] 07/10/2020 15:30:41 021 Lung Volumes, Plethysmography completed SILVESTRE MCLAIN PA-C [address] [place], [address], [facility] 07/10/2020 15:31:01 021 Spirometry completed SILVESTRE MCLAIN PA-C [address] [place], [address], [facility] 07/10/2020 15:31:15 020 Biopsy Skin Lesion; Punch completed [facility] 08/20/2019 12:12:34 020 Destruction BN Lesions completed [facility] 08/20/2019 12:12:09 019 Digital Rectal Screening Exam completed MIQUEL HERRMANN MD [address] [place], [address], [facility] 07/13/2018 16:22:10 018 Digital Rectal Screening Exam completed MIQUEL HERRMANN MD [address] [place], [address], [facility] 07/11/2017 16:34:07 017 MNT Initial Visit completed [address] [place], [address], [facility] 01/20/2017 14:21:14 017 Audiogram completed SCARLETT JAQUEZ, AUD [address] [place], [address], [facility] 06/30/2016 14:57:39 011 Cervical Spine Surgery completed Brea Leos [facility] 06/08/2016 14:35:47 Cataract Surgery completed Melissa avni giuseppe [facility] 06/08/2016 14:35:11 Knee Surgery completed Brea Andrewfrank [facility] 06/08/2016 14:37:21 Imaging Results None recorded. Procedure Notes None recorded. Medical Equipment None Reported. Allergies Allergen ID Allergen Name Allergen Category Reaction Reaction Severity Criticality Documentation Date Start Date Code Code System Note Provider Name and Address Organization Details Recorded Time 352457 Non-stero idal anti-infl ammatory agent (substanc e) medicatio n Not available Not available Not available 09/16/2016 03519 5008 SNOMED Veritolandy Marcialer [facility] 7 10:06:11 318051 Substance with sulfonami de structure and antibacte rial mechanism of action (substanc e) medicatio n Not available Not available Not available 09/16/2016 98985 8003 SNOMED Verito Jack [facility] 7 10:06:23 270963 aspirin medicatio n Not available Not available Not available 09/16/2016 1191 RxNorm Jocelyn Rahul [facility] 2 14:56:06 306115 pravastat in medicatio n rash Not available Not available 08/18/2022 93504 RxNorm JERRY ARIADNA, [employer] [address] [place], [address], [facility] 3 16:14:52 318655 lisinopri l medicatio n cough Not available Not available 12/08/2023 41151 RxNorm JERRY ARIADNA, [employer] [address] [place], [address], [facility] 4 10:43:26 Medications Name Sig Start [...] Available Not Available Nasonex 50 mcg/actua tion Dennison Dennison 2 sprays every day by intranas al [...] Updated DateTime 5 175.26 cm 47.8 kg/m2 099597. 93 g 87 /min 16 /min 129/73 mm[Hg] Yola De La Rosa [facility] 5 13:33:53 Social History Question Answer Notes LastModified by Organizat ion Details LastModified Time Tobacco Smoking Status Former Smoker QUIT 2005 Brea Leos [facility] 06/08/2016 14:34:38 Do You Have An Advance Directive? No [email or web address] Information not available 06/07/2019 What Is Your Level Of Caffeine Consumption? Moderate Information not available 07/08/2017 How Much Tobacco Do You Chew? None Information not available 07/13/2018 What Type Of Diet Are You Following? REGULAR Information not available 06/07/2019 Which Illicit Or Recreational Drugs Have You Used? No [email or web address] Information not available 06/07/2019 Education 2 Year College Information not available 07/08/2017 When Did You Quit Smoking? 16+yearssinc elastcigaret te [email or web address] Information not available 10/28/2022 Live Alone Or With Others? With Others Information not available 07/08/2017 Marital Status [email or web address] [place]ton not available 06/08/2016 What Was The Date Of Your Most Recent Tobacco Screening? 11/08/2022 [email or web address] Information not available 11/08/2022 What Is Your Relationship Status? 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 not available 07/11/2017 Do you or [...] available 2016 15:15:24 Unspecified Relation Glaucoma aunt [email or web address] Not available 2016 15:14:09 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 Condition [...] Heart Disease Y Bronchitis Y Heart Attack ([place]) Y Headaches Y Hypertension Y Osteoporosis Y Glasses/Contacts Y Immunizations Vaccine Type Date Status Note Provider Nam e and Address Organization Details Recorded Time zoster live 5 completed Not Available [facility] 03/15/2025 10:51:33 pneumococcal polysaccharide PPV23 1 completed Not Available [facility] 03/15/2025 10:51:33 COVID-19, mRNA, LNP-S, PF, 100 mcg/0.5mL dose or 50 mcg/0.25mL dose 1 completed Not Available [facility] 03/15/2025 10:51:33 Influenza, recombinant, quadrivalent, PF 3 completed Not Available [facility] 03/15/2025 10:51:33 COVID-19, mRNA, LNP-S, PF, 50 mcg/0.5 mL 3 completed Not Available [facility] 03/15/2025 10:51:33 COVID-19, mRNA, LNP-S, PF, mira-sucrose, 30 mcg/0.3 mL 4 completed Not Available [facility] 03/15/2025 10:51:33 Influenza, high-dose, trivalent, PF 4 completed Not Available [facility] 03/15/2025 10:51:33 COVID-19, mRNA, LNP-S, PF, 10 mcg/0.2 mL 5 completed Not Available [facility] 03/15/2025 10:51:33 Influenza, high-dose, trivalent, PF 9 completed Not Available [facility] 07/07/2019 02:48:55 Pneumococcal conjugate PCV 13 0 completed Not Available [facility] 07/07/2019 02:48:26 Influenza, high-dose, quadrivalent, PF 0 [facility] 15:59:45 Influenza, high-dose, quadrivalent, PF 2 completed [facility] 07/28/2021 12:03:00 pneumococcal polysaccharide PPV23 2 completed MIQUEL HERRMANN MD [address] [place] [address], [address], [facility] 08/18/2021 11:04:59 Influenza, split virus, quadrivalent, preservative 7 completed MIQUEL HERRMANN MD [address] [place] [address], [address], [facility] 11/08/2022 15:20:57 pneumococcal polysaccharide PPV23 3 completed Alejandra Hector [facility] 09/15/2016 08:08:52 Tdap 9 completed MIQUEL HERRMANN MD [address] [place] [address], [address], [facility] 11/08/2022 15:20:58 influenza nasal, unspecified formulation 2 completed MIQUEL HERRMANN MD [address] [place] [address], [address], [facility] 11/08/2022 15:20:58 zoster recombinant 9 completed MIQUEL HERRMANN MD [address] [place] [address], [address], [facility] 11/08/2022 15:20:57 zoster recombinant 9 completed MIQUEL HERRMANN MD [address] [place] [address], [address], [facility] 11/08/2022 15:20:57 Influenza, high-dose, quadrivalent, PF 0 completed MIQUEL HERRMANN MD [address] [place] [address], [address], [facility] 11/08/2022 15:20:57 Influenza, high-dose, quadrivalent, PF 1 completed MIQUEL HERRMANN MD [address] [place] [address], [address], [facility] 11/08/2022 15:20:57 COVID-19, mRNA, LNP-S, PF, 100 mcg/0.5mL dose or 50 mcg/0.25mL dose 1 completed MIQUEL HERRMANN MD [address] [place] [address], [address], [facility] 11/08/2022 15:20:57 COVID-19, mRNA, LNP-S, PF, 100 mcg/0.5mL dose or 50 mcg/0.25mL dose 2 completed MIQUEL HERRMANN MD [address] [place] [address], [address], [facility] 11/08/2022 15:20:57 COVID-19, mRNA, LNP-S, PF, 100 mcg/0.5mL dose or 50 mcg/0.25mL dose 1 completed MIQUEL HERRMANN MD [address] [place] [address], [address], [facility] 11/08/2022 15:20:58 COVID-19, mRNA, LNP-S, bivalent, PF, 50 mcg/0.5 mL or 25mcg/0.25 mL dose 2 completed MIQUEL HERRMANN MD [address] [place] [address], [address], [facility] 11/08/2022 15:20:58 Hep A, adult 0 completed MIQUEL HERRMANN MD [address] [place] [address], [address], [facility] 11/08/2022 15:20:58 Hep A, adult 9 completed MIQUEL HERRMANN MD [address] [place] [address], [address], [facility] 11/08/2022 15:20:58 Influenza, split virus, quadrivalent, PF 6 completed MIQUEL HERRMANN MD [address] [place] [address], [address], [facility] 11/08/2022 15:20:58 Past Encounters Encounter ID Performer Location Encounter Start Date Encounter Closed Date Diagnosis/Indication Diagnosis SNOMED-CT Code Diagnosis ICD10 Code Diagnosis IMO Codes Diagnosis Note [id number] EVITA DIAMOND MD [facility] [address] [place] [address] 03/01/2025 13:23:28 03/01/2025 15:40:24 Pile easily reducible 150800031 K64.8 [id number] Advised pt self care, manual reduction and not to sit on toilet seat for a prolonged time. Health Concerns Section Related Observation LastModified by Organization Detai ls LastModified Time None Recorded Concern Status LastModified by Organization Details LastModified Time None Recorded Payers Encounter Date Sequence Insurance Name Policy Number Policy Lockett Covered Member ID Lockett Member ID Guarantor Name 03/01/2025 2 [place] [employer] 111 Miquel Allen [id number] Miquel Allen 03/01/2025 1 [place] Miquel Allen [id number] Miquel Allen Notes Date Note Type Note Provider Name and Address Organization Details Recorded Time 5 text/html This is a pleasant 69 yom here for the first time since 2019Current status:rectal concernsSymptoms: feels a soft lump near anus after BMs, no bleeding, retracts spontaneously with wiping. He does tend to sit on toilet for a while reading his phone.Treatments:manual self reductionAdditional info:last colonoscopy 2019 overall normal EVITA DIAMOND MD [address] [place], [address], [facility] 03/01/2025 13:50:06
--- OUTSIDE RECORDS SUMMARY | 2025-04-30 14:06 | XMS_ITS | Continuity of Care Document ---
Author Organization [facility], [facility] Address [address] [place] [address] Care Team Providers Care Roof Tiler Name Role Phone JERRY ROSENTHAL Marketing Support Manager MIQUEL HANNA Real Estate Operations Manager MADELINE ALVAREZ II Primary Care Provider Assessment No assessment recorded. Plan of Treatment Reminders Order Date Submit Date Provider Last Modified By Organization Details Last Modified Time Details Appointments RECHECK 2024 02:15P M JERRY ROSENTHAL PHP DEVELOPER Not available Not available Not available DERM VISIT 2025 11:40A M ELIZABETH THACKER DO Not available Not available Not available LEVEL 2 2025 01:30P Iwona HANNA MD Not available Not available Not available Lab None recorded . Referral None recorded . Procedures None recorded . Surgeries None recorded . Imaging None recorded . Medication Orders None recorded . Patient TargetsNo targets recorded. Patient InstructionsNo instructions recorded. Reason for Referral None Reported. 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 205884107 Active 2015 From [employer];Pro vider: Magdalena Fuentes;Sta tus: Active Not Available [facility] 7 06:21:34 Pain in right foot 34156597525 9107 Active 2015 From [employer] Load;Pro vider: Magdalena Fuentes;Sta tus: Active Not Available [facility] 7 06:45:00 Congenit al talipes calcaneo valgus 899113795 Active 2015 From [employer];Pro vider: Magdalena Fuentes;Sta tus: Active Not Available [facility] 7 07:05:37 Tracheob ronchiti s 97638753 Completed 201501/03/2017 From [employer] Load;Pro vider: Celia Monge;St atus: Active MIQUEL HERRMANN MD [address] [place] [address], [address] , [facility] 7 13:46:47 Senile hyperker atosis 860622220 Active 2015 From [employer];Pro vider: Marilin Gonsales;St atus: Active Not Available [facility] 7 06:00:03 Neoplast ic disease Completed 201501/03/2017 From [employer] Load;Pro vider: Marilin Gonsales;St atus: Active MIQUEL HERRMANN MD [address] [place] [address], [address] , [facility] 7 13:46:51 Pain in left foot 27648686123 9107 Completed 201501/03/2017 From [employer];Pro vider: Magdalena Fuentes;Sta tus: Active MIQUEL HERRMANN MD [address] [place] [address], [address] , [facility] 7 13:46:55 Disorder of capillar ies 86993213 Active 2015 From Automate d Load;Pro vider: Marilin Gonsales;St atus: Active Not Available [facility] 7 07:51:38 Hyperten sive disorder 92702333 Active 2017 MIQUEL HERRMANN MD [address] [place], [address] , [facility] 2 07:59:22 Hyperlip idemia 92693140 Active 2017 MIQUEL HERRMANN MD [address] [place], [address] , [facility] 2 07:59:22 Chronic depressi on 191233620 Active 2017 MIQUEL HERRMANN MD [address] [place], [address] , [facility] 2 07:59:22 Chronic obstruct an pulmonar y disease 85347031 Active 2017 MIQUEL HERRMANN MD [address] [place], [address] , [facility] 2 07:59:22 Diabetic peripher al neuropat hy 603436689 Active 2017 MIQUEL HERRMANN MD [address] [place], [address] , [facility] 2 07:59:22 Venous insuffic iency of lower limb 358094400 Active 2020 MIQUEL HERRMANN MD [address] [place], [address] , [facility] 1 16:20:44 Multiple complica tions due to type 2 diabetes mellitus Active 2021 JERRY ROSENTHAL APRN [address] [place], [address] , [facility] 2 12:26:29 Lower urinary tract symptoms due to benign prostati c hypertro phy 01970964199 101 Active 2021 MIQUEL HERRMANN MD [address] [place], [address] , [facility] 2 08:02:53 Chronic low back pain 655777607 Active 2021 MIQUEL HERRMANN MD [address] [place] [address], [address] , [facility] 2 08:02:53 Body mass index 40+ - severely obese 664568842 Active 2021 MIQUEL HERRMANN MD [address] [place] [address], [address] , [facility] 2 08:02:[address] segment elevatio n myocardi al infarcti on 95415073067 9104 Active 2021 MIQUEL HERRMANN MD [address] [place] [address], [address] , [facility] 2 07:52:05 Morbid obesity 060575828 Active 2022 MIQUEL HERRMANN MD [address] [place] [address], [address] , [facility] 3 15:15:21 Recurren t major depressi on 65643159 Active 2022 MIQUEL HERRMANN MD [address] [place] [address], [address] , [facility] 3 15:23:59 Renal disorder due to type 2 diabetes mellitus 167970788 Active 2024 JERRY ROSENTHAL APRN [facility] [place], [address] , [facility] 5 13:45:35 Essentia l hyperten florinda 53136260 Active 2024 JERRY ROSENTHAL APRN [address] [place] [address], [address] , [facility] 5 13:45:35 Pile easily reducibl e 188603919 Active 2024 EVITA DIAMOND MD [address] [place] [address], [address] , [facility] 5 13:49:04 Problem Notes None recorded. Procedures Surgical History Date Name Laterality Status Provider Name and Address Organization Details Recorded Time 025 Diabetic Foot Exam active JERRY ROSENTHAL APRN [address] [place], [address], [facility] 04/30/2025 08:43:41 025 Diabetic Foot Exam completed JERRY ROSENTHAL APRN [address] [place], [address], [facility] 12/24/2024 13:45:31 025 Diabetic Foot Exam completed JERRY ROSENTHAL APRN [address] [place], [address], [facility] 08/23/2024 12:17:37 024 Laryngoscopy Flex completed Fred Fletcher [facility] 06/18/2024 15:35:17 024 Destruction BN Lesions completed ELIZABETH THACKER DO [address] [place], [address], [facility] 03/08/2024 17:02:10 022 [facility] 07:19:18 022 OCT/Retina completed MIQUEL HANNA MD [address] [place], [address], [facility] 06/07/2022 16:04:02 022 [facility]2022 07:29:27 022 Destruction BN Lesions completed Damaris Johnson [facility] 08/05/2021 14:43:50 022 Cystoscopy - male completed KARUNA ALDRIDGE MD [address] [place], [address], [facility] 07/13/2021 13:19:21 021 Post Void Residual; Ultrasound completed Katina Camejo [facility] 05/19/2021 15:49:13 021 OCT/Retina completed MIQUEL HANNA MD [address] [place], [address], [facility] 03/06/2021 12:14:35 021 repair of shoulder completed Monica Osorio [facility] 02/09/2021 14:40:09 021 Bubbles Echocardiogram completed ISAAK CASTRO MD [address] [place] [address], [address], [facility] 07/21/2020 15:43:23 021 Diffusion Capacity completed SILVESTRE MCLAIN PA-C [address] [place] [address], [address], [facility] 07/10/2020 15:30:41 021 Lung Volumes, Plethysmography completed SILVESTRE MCLAIN PA-C [address] [place] [address], [address], [facility] 07/10/2020 15:31:01 021 Spirometry completed SILVESTRE MCLAIN PA-C [address] [place], [address], [facility] 07/10/2020 15:31:15 020 Biopsy Skin Lesion; Punch completed [facility] 08/20/2019 12:12:34 020 Destruction BN Lesions completed [facility] 08/20/2019 12:12:09 019 Digital Rectal Screening Exam completed MIQUEL HERRMANN MD [address] [place] [address], [address], [facility] 07/13/2018 16:22:10 018 Digital Rectal Screening Exam completed MIQUEL HERRMANN MD [address] [place] [address], [address], [facility] 07/11/2017 16:34:07 017 MNT Initial Visit completed [address] [place], [address], [facility] 01/20/2017 14:21:14 017 Audiogram completed JACLYN WHARTON [address] [place], [address], [facility] 06/30/2016 14:57:39 011 Cervical Spine Surgery completed Brea Leos [facility] 06/08/2016 14:35:47 Cataract Surgery completed Melissa holly giuseppe [facility] 06/08/2016 14:35:11 Knee Surgery completed Brea giuseppe [facility] 06/08/2016 14:37:21 Imaging Results None recorded. Procedure Notes None recorded. Medical Equipment None Reported. Allergies Allergen ID Allergen Name Allergen Category Reaction Reaction Severity Criticality Documentation Date Start Date Code Code System Note Provider Name and Address Organization Details Recorded Time 156245 Non-stero idal anti-infl ammatory agent (substanc e) medicatio n Not available Not available Not available 09/16/2016 57347 5008 SNOMED Verito Jack [facility] 7 10:06:11 059610 Substance with sulfonami de structure and antibacte rial mechanism of action (substanc e) medicatio n Not available Not available Not available 09/16/2016 27560 8003 SNOMED Verito Marcialer [facility] 7 10:06:23 323303 aspirin medicatio n Not available Not available Not available 09/16/2016 1191 RxNorm Jocelyn Kay [facility] 2 14:56:06 928979 pravastat in medicatio n rash Not available Not available 08/18/2022 95586 RxNorm JERRY ARIADNA, PHP DEVELOPER [address] [place], [address], [facility] 3 16:14:52 412753 lisinopri l medicatio n cough Not available Not available 12/08/2023 91308 RxNorm JERRY ARIADNA, PHP DEVELOPER [address] [place], [address], [facility] 4 10:43:26 Medications Name Sig Start Date Stop Date Status Note LastModified by Organization Details LastModified Time eq mucus er 600mg tab TAKE 1 TO 2 TABLETS BY MOUTH TWICE DAILY NEEDED FOR CONGESTI ON 03/01 completed Not Available Not Available Not Available Prescript ion - Prior Authoriza tion Request 08/23 /2021 completed Not Available Not Available Not Available [...] Available Not Available Nasonex 50 mcg/actua tion [place] 2 sprays every day by intranas al [...] Not Available Vitals Date Recorded Body height Provider Name an d Address Organization Details Last Updated DateTime 03/15/2025 175.26 cm Gabriella Morris [facility] 0 03/15/2025 11:20:01 Social History Question Answer Notes LastModified by Organizat ion Details LastModified Time Tobacco Smoking Status Former Smoker QUIT 2005 Brea Leos [facility] 06/08/2016 14:34:38 Do You Have An Advance Directive? No [email or web address] Information not available 06/07/2019 What Is Your [...] Did You Quit Smoking? 16+yearssinc elastcigaret te [email or web address] Information not available 10/28/2022 Live Alone Or With Others? With Others Information not available 07/08/2017 Marital Status navya Gonsales n not available 06/08/2016 What Was The Date Of Your Most Recent Tobacco Screening? 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 Information not available 07/11/2017 Do you or [...] Heart Disease Y Bronchitis Y Heart Attack ([place]) Y Headaches Y Hypertension Y Osteoporosis Y Glasses/Contacts Y Immunizations Vaccine Type Date Status Note Provider Nam e and Address Organization Details Recorded Time zoster live 5 completed Not Available [facility] 03/15/2025 10:51:33 pneumococcal polysaccharide PPV23 1 completed Not Available [facility] 03/15/2025 10:51:33 COVID-19, mRNA, LNP-S, PF, 100 mcg/0.5mL dose or 50 mcg/0.25mL dose 1 completed Not Available [facility] 03/15/2025 10:51:33 Influenza, recombinant, quadrivalent, PF 3 completed Not Available [facility] 03/15/2025 10:51:33 COVID-19, mRNA, LNP-S, PF, 50 mcg/0.5 mL 3 completed Not Available [facility] 03/15/2025 10:51:33 COVID-19, mRNA, LNP-S, PF, mira-sucrose, 30 mcg/0.3 mL 4 completed Not Available [facility] 03/15/2025 10:51:33 Influenza, high-dose, trivalent, PF 4 completed Not Available [facility] 03/15/2025 10:51:33 COVID-19, mRNA, LNP-S, PF, 10 mcg/0.2 mL 5 completed Not Available [facility] 03/15/2025 10:51:33 Influenza, high-dose, trivalent, PF 9 completed Not Available [facility] 07/07/2019 02:48:55 Pneumococcal conjugate PCV 13 0 completed Not Available [facility] 07/07/2019 02:48:26 Influenza, high-dose, quadrivalent, PF 0 completed Monica taylor [facility] 06/16/2020 15:59:45 Influenza, high-dose, quadrivalent, PF 2 [facility] 12:03:00 pneumococcal polysaccharide PPV23 2 completed MIQUEL HERRMANN MD [address] [place] [address], [address], [facility] 08/18/2021 11:04:59 Influenza, split virus, quadrivalent, preservative 7 completed MIQUEL HERRMANN MD [address] [place] [address], [address], [facility] 11/08/2022 15:20:57 pneumococcal polysaccharide PPV23 3 [facility] 09/15/2016 08:08:52 Tdap 9 completed MIQUEL HERRMANN MD [address] [place] [address], [address], [facility] 11/08/2022 15:20:58 influenza nasal, unspecified formulation 2 completed MIQUEL HERRMANN MD [address] [place] [address], [address], [facility] 11/08/2022 15:20:58 zoster recombinant 9 completed MIQUEL HERRMANN MD [address] [place] [address], [address], [facility] 11/08/2022 15:20:57 zoster recombinant 9 completed MIQUEL HERRMANN MD [address] [place] [address], [address], [facility] 11/08/2022 15:20:57 Influenza, high-dose, quadrivalent, PF 0 completed MIQUEL HERRMANN MD [address] [place] [address], [address], [facility] 11/08/2022 15:20:57 Influenza, high-dose, quadrivalent, PF 1 completed MIQUEL HERRMANN MD [address] [place] [address], [address], [facility] 11/08/2022 15:20:57 COVID-19, mRNA, LNP-S, PF, 100 mcg/0.5mL dose or 50 mcg/0.25mL dose 1 completed MIQUEL HERRMANN MD [address] [place] [address], [address], [facility] 11/08/2022 15:20:57 COVID-19, mRNA, LNP-S, PF, 100 mcg/0.5mL dose or 50 mcg/0.25mL dose 2 completed MIQUEL HERRMANN MD [address] [place] [address], [address] [place] [address], [facility] 11/08/2022 15:20:57 COVID-19, mRNA, LNP-S, PF, 100 mcg/0.5mL dose or 50 mcg/0.25mL dose 1 completed MIQUEL HERRMANN MD [address] [place] [address], [address] [place] [address], [facility] 11/08/2022 15:20:58 COVID-19, mRNA, LNP-S, bivalent, PF, 50 mcg/0.5 mL or 25mcg/0.25 mL dose 2 completed MIQUEL HERRMANN MD [address] [place] [address], [address] [place] [address], [facility] 11/08/2022 15:20:58 Hep A, adult 0 completed MIQUEL HERRMANN MD [address] [place] [address], [address] [place] [address], [facility] 11/08/2022 15:20:58 Hep A, adult 9 completed MIQUEL HERRMANN MD [address] [place] [address], [address] [place] [address], [facility] 11/08/2022 15:20:58 Influenza, split virus, quadrivalent, PF 6 completed MIQUEL HERRMANN MD [address] [place] [address], [address] [place] [address], [facility] 11/08/2022 15:20:58 Past Encounters Encounter ID Performer Location Encounter Start Date Encounter Closed Date Diagnosis/Indication Diagnosis SNOMED-CT Code Diagnosis ICD10 Code Diagnosis IMO Codes Diagnosis Note [id number] EVITA DIAMOND MD [place] [address] [facility] [address] [place] [address] 03/01/2025 13:23:28 03/01/2025 15:40:24 Pile easily reducible 087892144 K64.8 [id number] Advised pt self care, manual reduction and not to sit on toilet seat for a prolonged time. [id number] MIQUEL HANNA MD [facility] [address] [facility] [place] [address] 03/15/2025 10:50:46 03/15/2025 12:25:59 Type 2 diabetes mellitus without complication 109867597 E11.9 no retinopath y ouI discussed diabetes with this patient. I discussed the importance of sugar control for reducing risk of diabetic complicati ons in the eyes. I recommende d they follow up with their PCP/endocr inologist for continue sugar evaluation /managemen t. Also discussed importance of cardiovasc ular risk reduction. Call with changing/f luxuating vision.1 year and pnr Pseudophakia [id number] Z9 6.1 stable, obsmr today Health Concerns Section Related Observation LastModified by Organization Detai ls LastModified Time None Recorded Concern Status LastModified by Organization Details LastModified Time None Recorded Payers Encounter Date Sequence Insurance Name Policy Number Policy Lockett Covered Member ID Lockett Member ID Guarantor Name 03/15/2025 2 [place] [employer] [id number] Miquel Allen [id number] Miquel Allen 03/15/2025 1 [place] Miquel Allen [id number] Miquel Allen Notes Date Note Type Note Provider Name and Address Organization Details Recorded Time 03/15/2025 text/html ROS as noted in the HPI MIQUEL HANNA MD [facility] [place], [address], [facility] 03/15/2025 12:20:47
--- OUTSIDE RECORDS SUMMARY | 2025-04-30 14:06 | XMS_ITS | Data Portability ---
Author Organization [place] - [facility] [place] [facility] [place] Address [address] [place] [address] Assessment Encounter Date Assessment Date Assessment LastModified by Organization Details LastModified Time 05/19/2022 05/19/2022 Patient may continue to use the topical preparation which seems to be helping him. He should avoid overly aggressive hygiene beneath the foreskin since this could irritate or even potentially injure the glans. Normal external hygiene recommended. He has a consultation pending at the [facility] with focus on best approach toward management and potential for any reconstructive options that might be available. [email or web address] Not available 05/19/2022 17:43:06 12/01/2022 12/01/2022 I [...] would benefit him and his other providers. Not available 12/01/2022 15:21:38 Plan of Treatment Reminders Order Date Submit Date Provider Last Modified By Organization Details Last Modified Time Details Appointments None recorded. Lab None recorded. Referral None recorded. Procedures None recorded. Surgeries None recorded. Imaging None recorded. Medication Orders nystatin- triamcino lone 100,000 unit/g-0. 1 % topical cream ASA Rao [facility], [address] [facility] [address] [place], [phone], 16:10:25 Patient TargetsNo targets recorded. Patient InstructionsNo instructions recorded. Reason for Referral None Reported. 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 Medical Equipment None Reported. Allergies Allergen ID Allergen Name Allergen Category Reaction Reaction Severity Criticality Documentation Date Start Date Code Code System Note Provider Name and Address Organization Details Recorded Time 92401 Non-stero idal anti-infl ammatory agent (substanc e) medicatio n Not available Not available Not available 05/07/2022 64667 5008 SNOMED Lillieangelica taylor, ALBER - [facility] - [place] [facility] [place] 10:10:51 38372 Substance with sulfonami de structure and antibacte rial mechanism of action (substanc e) medicatio n Not available Not available Not available 05/07/2022 77385 8003 SNOMED Lillieangelica Tsaise null, ALBER - [facility] - [place] [facility] [place] 10:10:59 62158 aspirin medicatio n Not available Not available Not available 05/07/2022 1191 RxNorm ALBER Arzola LPCLARK [facility] & [place] 2 10:11:13 50987 Product containin g 3-hydroxy -3-methyl glutaryl- coenzyme A reductase inhibitor (product) medicatio n Not available Not available Not available 05/07/2022 21662 009 SNOMED ALBER Arzola - [facility] & [place] 2 10:11:21 Medications Name Sig Start Date [...] Updated DateTime 12/01/2022 175.26 cm 50.4 kg/m2 536163 g 120/80 mm[Hg] Madelin Clemons [facility] & [place] 12/01/2022 15:10:33 Date Recorded Body height Body mass index (BMI) Body weight Body temperature Systolic And Diastolic Provider Name and Address Organization Details Last Updated DateTime 05/19/2022 175.26 cm 48 kg/m2 938164. 24 g 97.7 [degF] 130/68 mm[Hg] Sobeida Martinez, BRIJESH, [address] [place], [address] , [facility] & [place] 15:53:33 Social History Question Answer Notes LastModified by Organizat ion Details LastModified Time Tobacco Smoking Status Former Smoker Lillie Marcia taylor, [facility] & [place] 05/07/2022 10:13:15 When Did You Quit Smoking? 11-15yearssi ncelastcimiles sosa Information not available 05/07/2022 Sex: Male Functional Status Question Answer Note LastModified by Organizat ion Details LastModified Time Do you use any illicit or recreational drugs? No Information not available 05/07/2022 What is your level of alcohol consumption? None Information not available 05/07/2022 Mental Status None recorded. 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 N48.0 Lichen sclerosus 2262979 01 L90.0 Penile History of diabetes mellitus type 2 845093951 Z86.39 poorly controlled Morbid obesity 872608066 E66.01 [id number] Fritz Leung MD [facility] Urology [address] [place] [phone] 12/01/2022 14:56:56 12/01/2022 15:17:36 Balanitis xerotica obliterans 007285276 N48.0 Lichen sclerosus 3929209 01 L90.0 Penile Phimosis 713273705 N47.1 Morbid obesity 908539483 E66.01 Type 2 katie betes mellitus 40507831 Z79.4 Health Concerns Section Related Observation LastModified by Organization Detai ls LastModified Time None Recorded Concern Status LastModified by Organization Details LastModified Time None Recorded Advance Directives Directive None Recorded Payers Insurance Date Sequence Insurance Name Policy Number Policy Olckett Covered Member ID Lockett Member ID Guarantor Name 11/28/2022 1 [place] ([place] Catarino Allen [id number] Catarino Allen 11/28/2022 2 [place] BRENDA [place] - [employer] 111 Catarino Allen [id number] Catarino Allen Notes Date Note Type Note Provider Name and Address Organization Details Recorded Time 05/19/2022 text/html ROS as noted in the HPI the patient has a history of significant [...] trouble retracting the foreskin.} Fritz Leung MD [address] [facility], [place], [address], [facility] - [facility] & [place] 05/19/2022 17:43:30 12/01/2022 text/html ROS as noted in the HPI the patient returns to clinic today with a history of [...] tells me that Dr. Monteiro at the [facility] is planning on performing circumcision sometime [...] trouble retracting the foreskin.} Fritz Leung MD [address], [place], [address], [facility] - [place] - [place] 12/01/2022 15:21:58
[2025-04-30 14:19] LABS: Blood Urea Nitrogen 22 mg/dl (9-20); Creatinine,Serum 1.00 mg/dl (0.66-1.25); Estimated Glomerular Filt Rate 74 ml/min (>60); GFR (African American) 89 ML/MIN (>60)
== END 2025-04-30 23:59 | disposition home or self-care (01) ==
LOC: LAB 13:55
PROVIDERS: PCP Internal Medicine; Visit Provider Internal Medicine
DX: N28.89 Other specified disorders of kidney and ureter (principal)
CPT/HCPCS: 36415; 82565; 84520

== ENCOUNTER 2025-05-06 09:26 | Outpatient (CLI) | payer MEDICARE, BC, SELFPAY ==
--- NOTE | 2025-05-06 09:30 | CT_ITS ---
FINAL REPORT CLINICAL HISTORY: L RENAL MASS COMPARISON: 05/09/2020 FINDINGS: The lung bases are clear. The liver is mildly fatty infiltrated. Gallbladder is present. There are benign-appearing hepatic and splenic cysts. The adrenals are normal. The pancreas is unremarkable. There are multitude of small nonobstructing bilateral renal stones measuring up to 5 mm in greatest dimension. No renal mass is identified. The left kidney is relatively atrophic. Precontrast images demonstrate no nephrolithiasis. The appendix is normal. There is mild sigmoid diverticulosis without evidence of diverticulitis. Urinary bladder is unremarkable. There is no adenopathy or free fluid. IMPRESSION: Bilateral nonobstructing renal stones. Fatty infiltration of the liver. No renal mass is clinically questioned. Reviewed, Interpreted and Dictated by Sb Renee MD Transcribed by Dafne Walter Authenticated and [facility]
[2025-05-06] MEDS: SODIUM CHLORIDE 0.9% 10ML SYR (RAD ONLY) 10 ML IV (09:54)
[2025-05-06] MEDS: IOPAMIDOL-370 (76%);100ML BOTTLE 75 ML IV (09:54)
== END 2025-05-06 23:59 | disposition home or self-care (01) ==
LOC: RAD 09:27
PROVIDERS: PCP Internal Medicine; Visit Provider Internal Medicine
DX: N20.0 Calculus of kidney (principal); K76.0 Fatty (change of) liver, not elsewhere classified; N28.89 Other specified disorders of kidney and ureter
CPT/HCPCS: 74178; Q9967

== ENCOUNTER 2025-05-15 15:00 | Outpatient (RCR) | payer MEDICARE, BC, SELFPAY | END 2025-05-15 23:59 | disposition home or self-care (01) | LOC: PT 15:00 | PROVIDERS: PCP Internal Medicine; Visit Provider Internal Medicine | DX: M17.12 Unilateral primary osteoarthritis, left knee (principal); R29.818 Other symptoms and signs involving the nervous system; R29.898 Other symptoms and signs involving the musculoskeletal system | CPT/HCPCS: 97110; 97162 ==

== ENCOUNTER 2025-05-15 15:32 | Outpatient (CLI) | payer MEDICARE, BC, SELFPAY ==
--- OUTSIDE RECORDS SUMMARY | 2024-02-08 10:45 | XMS_ITS | Continuity of Care Document ---
Author Organization [facility] Address [address] [place] [address] Phone Care Team Providers Care Events Associate Name Role Phone Santos SETH Sheila Unavailable Unavailable Allergies, Adverse Reactions, Alerts Substance Reaction Status Criticality Sulfa (Sulfonamide Antibiotics) Active No Information Medications Medication Instructions Dosage Effective Dates (start - stop) Status Comments Medrol (Liam) 4 mg tablets in a dose pack take by oral route as directed per package instructions 0.00 - Active clopidogrel 75 mg tablet - Active ezetimibe 10 mg tablet - Active Ozempic 2 mg/dose (8 mg/3 mL) subcutaneous pen injector - Active duloxetine 60 mg capsule,delayed release - Active Advocate Pen Needle 31 gauge x /16 - Active hydrocodone 5 mg-acetaminophen 325 mg tablet take 1 tablet by oral route every 6 hours as needed for pain 1.00 tablet - Active lidocaine 5 % topical patch - Active Humulin R U-500 (Conc) Insulin Kwikpen 500 unit/mL (3 mL) subcutaneous - Active Ozempic 1 mg/dose (4 mg/3 mL) subcutaneous pen injector - Active atorvastatin 40 mg tablet - Active benzonatate 100 mg capsule - Active bisoprolol fumarate 5 mg tablet - Active valsartan 320 mg-hydrochlorothiazi de 12.5 mg tablet - Active Ozempic 0.25 mg or 0.5 mg (2 mg/3 mL) subcutaneous pen injector - Active Mucus Relief ER 600 mg tablet, extended release TAKE 1 TO 2 TABLETS BY MOUTH TWICE DAILY NEEDED FOR CONGESTION - Active nystatin 100,000 unit/gram topical cream - Active cefdinir 300 mg capsule - Active Paxlovid 300 mg (150 mg x 2)-100 mg tablets in a dose pack TAKE 2 NIRMATRELVIR TABLETS WITH 1 RITONAVIR TABLET TWICE A DAY FOR 5 DAYS - Active tobramycin 0.3 %-dexamethasone 0.1 % eye drops,suspension - Active Cymbalta 30 mg capsule,delayed release take 1 capsule by oral route BID - Active diclofenac 1 % topical gel apply 2 gram by topical route 4 times every day to the affected area(s) 2.00 gram - Active Procedures Procedure Date Office/outpatient visit,est, mod 2023 Drain Or inject major jointor bursa Betamethasone acet 3mg & sod phosp 3mg A Dexamethasone sodium phos Ko elas w/ condyle pads & juanpablo Office/outpatient visit,est, mod 2023 X-ray exam of knee, 3 views Office/outpatient visit,est, mod 2023 Drain Or inject major jointor bursa X-ray exam of shoulder, complete 2023 X-ray exam of hand, 3+ views Betamethasone acet 3mg & sod phosp 3mg J Dexamethasone sodium phos Postop followup visit Postop followup visit Postop followup visit X-ray exam of knee, 3 views Arthroplasty, total knee PA Arthroplasty, Total Knee Office/outpatient visit,est, mod 2021 Postop followup visit Postop followup visit Postop followup visit Postop followup visit Reconstruct shoulder cuff avulsion PA Reconstruction Shoulder Cuff Avulsion Office/outpatient visit,est, mod 2021 Drain/inject major jointor bursa 2021 Unclassified biologics Office/outpatient visit,est, low 2021 Office/outpatient visit,est, mod 2021 Office/outpatient visit,est, mod 2020 Office/outpatient visit,est, mod 2020 X-ray exam of shoulder, complete 2020 Office/outpatient visit,est, mod 2020 X-ray exam of neck spine2-3 views X-ray exam of shoulder, complete 2020 X-ray exam of shoulder, complete 2020 Office/outpatient visit,est, mod 2020 Postop followup visit Postop followup visit Postop followup visit Postop followup visit Postop followup visit Postop followup visit Postop followup visit Reconstruct shoulder cuff avulsion Partial removal of collarbone Arthscpy shldr, debrid, extensive PA Reconstruction Shoulder Cuff Avulsion PA Partial Removal Of Collarbone 2020 PA Arthscpy Shldr Debride Extensive Office/outpatient visit,est, mod 2020 MRI Upr Ext Joint wo Contrast Office/outpatient visit,new, mod 2020 Advance Directives Directive Yes / No Effective Date File Name No Information Encounters Encounter Description Practice Location Reason(s) For Visit Diagnoses Date Provider Providers Copied on Encounter Office/outpa tient visit,est, mod [facility], [address] [place], [address], [place] tel:[phone] Office Visit (chief complaint) Presence of left artificial knee joint 4 Claud[address], [place], [place], [id number] , [place]. tel:[phone] Referring Provider: Sheila Fleming, [address], [place], [address] . tel:[phone] [facility], [address] [place], [address], [place] tel:[phone] No Information [address] Claudia [address], [place], [place], [id number] , [place]. tel:[phone] Referring Provider: Sheila Fleming, [address], [place], [address] . tel:[phone] [facility], [address] [place], [address], [place] tel:[phone] No Information 4 Ayaan Chavis. [address], [place], [place], [id number] , [place]. [phone] Referring Provider: Sheila Fleming, [address], [place], [address] . tel:[phone] Office/outpa tient visit,est, mod [facility], [address] [place], [address], [place] tel:[phone] Follow Up (chief complaint) Presence of left artificial knee joint 4 Claud[address], [place], [place], [id number] , [place]. tel:[phone] Referring Provider: Sheila Fleming, [address], [place], [address] . tel:[phone] Office/outpa tient visit,est, mod [facility], [facility] [place] [place], [address], [place] tel:[phone] [place] [place] EPNP (chief complaint) Impingement syndrome of right shoulderImping ement syndrome of left shoulder Russel- 4 Claudia Sosa. [address], [place], [place], [id number] , [place]. tel:[phone] Referring Provider: Sheila Fleming, [address], [place], [address] . tel:[phone] [facility], [address] [place] [address], [address], [place] tel:[phone] [place] General orthopedic (chief complaint) Presence of left artificial knee joint Oct- 2 Claudia Sosa. [address], [place], [place], [address] , [place]. tel:[phone] Referring Provider: Sheila Fleming, [address], [place], [address] . tel:[phone] [facility], [address] [place] [address], [address], [place] tel:[phone] [place] [place] General orthopedic (chief complaint) Presence of left artificial knee joint Sep- 2 Claudia Sosa. [address], [place], [place], [id number] , [place]. tel:[phone] Referring Provider: Sheila Fleming, [address], [place], [address] . tel:[phone] [facility], [address] [place] [address], [address], [place] tel:[phone] General orthopedic (chief complaint) Presence of left artificial knee joint Jan- 2 Deborah Dalton. [address], [place], [place], [id number] , [place]. tel:[phone] Referring Provider: Partha Jaffe, [address], [place], [address] . tel:[phone] [facility], [facility] [place] [place], [address], [place] tel:[phone] 700 [facility] No Information 2 Ayaan Chavis. [address], [place], [place], [id number] , . tel:[phone] Referring Provider: Partha Jaffe, [address], [place], [address] . tel:[phone] [facility], [facility] [place], [address], [place] tel:[phone] 700 [facility] No Information 2 Patriceana Dalton. [address], [place], [place], [address] , . tel:[phone] Referring Provider: Partha Jaffe, [address], [place], [address] . tel:[phone] Office/outpa tient visit,est, [facility], [facility] [place] [place], [address], [place] tel:[phone] [facility] General orthopedic (chief complaint) Presence of left artificial knee joint 2 Bills Sheila. [address], [place], [place], [address] , [place]. tel:[phone] Referring Provider: Sheila Fleming, [address], [place], [address] . tel:[phone] [facility], [facility] [place], [address], [place] tel:[phone] [place] [facility] orthopedic (chief complaint) Unsp rotatr-cuff tear/ruptr of left shoulder, not traumaCutaneou s abscess of right upper limb 2 Bills Sheila. [address], [place], [place], [address] , [place]. tel:[phone] Referring Provider: Sheila Fleming, [address], [place], [address] . tel:[phone] [facility], [facility] [place], [address], [place] tel:[phone] [facility] General orthopedic (chief complaint) Unsp rotatr-cuff tear/ruptr of left shoulder, not trauma Russel- 2 Bills Sheila. [address], [place], [address] , [place]. tel:[phone] Referring Provider: Partha Jaffe, [address], [place], [address] . tel:[phone] [facility], [address] [place] [address], [facility], [place] tel:[phone] [facility] General orthopedic (chief complaint) Unsp rotatr-cuff tear/ruptr of left shoulder, not trauma October- 2 Bills Sheila. [address], [place], [place], [address] , [place]. tel:[phone] Referring Provider: Sheila Fleming, [address], [place], [address] . tel:[phone] [facility], [address] [place] [address], [address], [place] tel:[phone] [facility] General orthopedic (chief complaint) Unsp rotatr-cuff tear/ruptr of left shoulder, not trauma October- 2 Claudia Sosa. [address], [place], [address] , [place]. tel:[phone] Referring Provider: Partha Jaffe, [address], [place], [address] . tel:[phone] [facility], [facility] [place], [address], [place] tel:[phone] [facility] No Information October- 2 Ayaan Chavis. [address], [place], [place], [id number] , . tel:[phone] Referring Provider: Partha Jaffe, [address], [place], [address] . tel:[phone] [facility], [address] [place], [address], [place] tel:[phone] [facility] No Information 2 Patriceana Dalton. [address], [place], [place], [address] , [place]. tel:[phone] Referring Provider: Partha Jaffe, [address], [place], [address] . tel:[phone] Office/outpa tient visit,est, mod [facility], [address] [place], [address], [place] tel:[phone] [facility] General orthopedic (chief complaint) Unsp rotatr-cuff tear/ruptr of left shoulder, not trauma 2 Ayaan Chavis. [address], [place], [place], [address] , [place]. tel:[phone] Referring Provider: Partha Jaffe, [address], [place], [address] . tel:[phone] Office/outpa tient visit,est, [facility], [address] [place], [address], [place] tel:[phone] [facility] general orthopedic (chief complaint) Cutaneous abscess of right upper limb 2 Claudia Sosa. [address], [place], [place], [address] , [place]. tel:[phone] Referring Provider: Partha Jaffe, [address], [place], [address] . tel:[phone] Office/outpa tient visit,est, [facility], [facility] [place] [place], [address], [place] tel:[phone] [facility] general orthopedic (chief complaint) Primary osteoarthritis , left shoulderCellul itis of left upper limb 2 Claudia Sosa. [address], [place], [place], [address] , [place]. tel:[phone] Referring Provider: Sheila Claudia Fleming, [address], [place], [address] . tel:[phone] Office/outpa tient visit,est, mod [facility], [address], [place], [facility], [place] tel:[phone] [facility] general orthopedic (chief complaint) Primary osteoarthritis , left shoulder 1 Claudia Sosa. [address], [place], [place], [address] , [place]. tel:[phone] Referring Provider: Sheila Fleming, [address], [place], [address] . tel:[phone] [facility], [address], [place], [facility], [place] tel:[phone] [facility] general orthopedic (chief complaint) Cellulitis of left upper limb 1 Ayaan Chavis. [address], [place], [place], [address] , [place]. tel:[phone] Referring Provider: Partha Jaffe, [address], [place], [address] . tel:[phone] Office/outpa tient visit,est, [facility], [address] [place], [address], [place] tel:[phone] [facility] general orthopedic (chief complaint) Primary osteoarthritis , left shoulder 1 Claudia Sosa. [place] [place] [place], [address] , [place]. tel:[phone] Referring Provider: Partha Jaffe, [address], [place], [address] . tel:[phone] Office/outpa tient visit,est, [facility], [facility] [place] [place], [address], [place] tel:[phone] [place] [place] general orthopedic (chief complaint) Primary osteoarthritis , right shoulderCutane ous abscess of right upper limbOther cervical disc degeneration, unsp cervical regionPrimary osteoarthritis , left shoulder Nov- 1 Billjuanita Sosa. [address], [place], [place], [address] , [place]. tel:[phone] Referring Provider: Partha Jaffe, [address], [place], [address] . tel:[phone] Office/outpa tient visit,[facility], [facility], [address] [place] [address], [address], [place] tel:[phone] [place] general orthopedic (chief complaint) Unsp rotatr-cuff tear/ruptr of left shoulder, not traumaCutaneou s abscess of right upper limb Sep-2 1 Billjuanita Sosa. [address], [place], [place], [address] , [place]. tel:[phone] Referring Provider: Sheila Fleming, [address], [place], [address] . tel:[phone] [facility], [address] [place] [address], [address], [place] tel:[phone] [facility] general orthopedic (chief complaint) Unsp rotatr-cuff tear/ruptr of left shoulder, not trauma Sep- 1 Claudia Sosa. [address], [place], [place], [address] , [place]. tel:[phone] Referring Provider: Partha Jaffe, [address], [place], [address] . tel:[phone] [facility], [address] [place] [address], [address], [place] tel:[phone] [facility] general orthopedic (chief complaint) Unsp rotatr-cuff tear/ruptr of left shoulder, not trauma Aug-0 1 Billjuanita Sheila. [address], [place], [place], [address] , [place]. tel:[phone] Referring Provider: Partha Jaffe, [address], [place], [address] . tel:[phone] [facility], [address] [place], [address], [place] tel:[phone] [facility] general orthopedic (chief complaint) Unsp rotatr-cuff tear/ruptr of left shoulder, not trauma 1 Billjuanita Sheila. [address], [place], [place], [id number] , [place]. tel:[phone] Referring Provider: Sha Mcarthur, [address], [place], [address] . tel:[phone] [facility], [address] [place], [address], [place] tel:[phone] [facility] general orthopedic (chief complaint) Unsp rotatr-cuff tear/ruptr of left shoulder, not traumaCutaneou s abscess of right upper limb 1 Claudia Sosa. [address], [place], [place], [address] , [place]. tel:[phone] Referring Provider: Partha Jaffe, [address], [place], [address] . tel:[phone] [facility], [address] [place], [address], [place] tel:[phone] [facility] general orthopedic (chief complaint) Unsp rotatr-cuff tear/ruptr of left shoulder, not trauma 1 Ayaan Chavis. [address], [place], [place], [address] , [place]. tel:[phone] Referring Provider: Partha Jaffe, [address], [place], [address] . tel:[phone] [facility], [address] [place], [address], [place] tel:[phone] 700 [facility] general orthopedic (chief complaint) Unsp rotatr-cuff tear/ruptr of left shoulder, not trauma 1 Deborah Dalton. [address], [place], [place], [address] , [place]. tel:[phone] Referring Provider: Partha Jaffe, [address], [place], [address] . tel:[phone] [facility], [address] [place], [address], [place] tel:[phone] [facility] orthopedic (chief complaint) Unsp rotatr-cuff tear/ruptr of left shoulder, not trauma Nov- 1 Deborah Dalton. [address], [place], [place], [address] , [place]. tel:[phone] Referring Provider: Catarino Kinsey, [address], [place], [address] . tel:[phone] [facility], [facility] [place] [place], [address], [place] tel:[phone] [facility] No Information 1 Ayaan Chavis. [address], [place], [place], [address] , [place]. tel:[phone] Referring Provider: Partha Jaffe, [address], [place], [address] . tel:[phone] [facility], [facility] [place] [place], [address], [place] tel:[phone] [facility] No Information 1 Deborah Dalton. [address], [place], [place], [address] , [place]. tel:[phone] Referring Provider: Partha Jaffe, [address], [place], [address] . tel:[phone] Office/outpa tient visit,est, mod [facility], [address] [place], [address], [place] tel:[phone] [facility] general orthopedic (chief complaint) Unsp rotatr-cuff tear/ruptr of left shoulder, not trauma 1 Ayaan Chavis. [address], [place], [place], [address] , . tel:[phone] Referring Provider: Partha Jaffe, [address], [place], [address] . tel:[phone] [facility], [address] [place], [address], [place] tel:[phone] 700 [facility] No Information 1 Ayaan Chavis. [address], [place], [place], [address] , . tel:[phone] Referring Provider: Partha Jaffe, [address], [place], [address] . tel:[phone] Office/outpa tient visit,[facility], [address] [place], [address], [place] tel:[phone] [facility] general orthopedic (chief complaint) No Information 1 Ayaan Chavis. [address], [place], [place], [address] , . tel:[phone] Referring Provider: Partha Jaffe, [address], [place], [address] . tel:[phone] Family History Family Member Type Diagnosis Age At Onset Mother Problem (finding) Cancer Sister Problem (finding) Osteoarthritis Mother Problem (finding) Osteoarthritis Brother Problem (finding) Hypertension Mother Problem (finding) Hypertension Sister Problem (finding) Hypertension Father Problem (finding) Depression Mother Problem (finding) Diabetes mellitus Sister Problem (finding) Cancer Payers Payer name Insurance type Covered democrat ID Authoriza tion(s) [place] [id number] [facility] [id number] Social History Type Description Quantity Date Captured Comments Alcohol Use Details Unknown Caffeine Use Details Unknown Tobacco Use Status No Information Smoking Status No Information Sex Male Chief Complaint And Reason For Visit From encounter dated '02/08/2024 15:45'. Office Visit (chief complaint). Description: ct results left knee Reason For Referral Reason For Referral No Information Plan Of Treatment Date Type Action Status Future Order: Radiology Order CT Lower Extremity/Leg WITHOUT Contrast (45986), Ordered on: Ordered Future Order: Radiology Order MR I Shoulder WO Contrast ([id number]), Ordered on: Ordered Future Order: Radiology Order Up per Extremity/Arm CT WITH Contrast ([id number]), Ordered on: Ordered Future Order: Radiology Order MR I Shoulder WO Contrast ([id number]), Collected on: , Sent on: Sent History Of Present Illness Encounter Date Complaint History Of Prese nt Illness Office Visit ct results left knee Follow Up FU LT TKA DOS: 0 02/02/22 - HAS ONGOING CLICKING AND HAD PAIN A FEW WEEKS AGO WHEN HE WAS 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 Relates he starts his OPPT tomorrow. General orthopedic Post OP L latosha belle 10/27/2021; hasn't started PT yet, had evaluation last week; pain ok as long as he takes pain medication General orthopedic PO Lt shoulde r, labral/RTC repair 10/27/21. General orthopedic PO Lt shoulde r, RTC repair 10/27/21. General orthopedic FU Lt shoulde r general orthopedic FU Lt shoulde r general orthopedic FU Lt shoulde r, RTC repair 12/01/20. Relates it is about the same, no improvement. Saw Dr. Maddox, had him try triamcinolone cream for 2 weeks on the red area. Saw him again and told him to follow-up with Sheila regarding the pain. His PCP had recommended an MRI on the shoulder to see what is going on. general orthopedic FU Lt shoulde r, about the same, no improvement. general orthopedic CT resultsf L eft shoulder. general orthopedic FU Lt shoulde r, not doing very good. States he is having some bruising and discoloration about his surgical incisions and some pain. general orthopedic FU Lt shoulde r, scope 12/01/20. Relates he is still in some pain, starting to have pain in the right too. States he was prescribed another series of doxycycline due to bronchitis. general orthopedic FU Lt Shoulde r, Still has some redness in the shoulder, still taking the antibiotics and has about five pills left. He does think the motion in his shoulder is getting better. general orthopedic Post op Lt Sh malini, Incision red and warm general orthopedic post op left shoulder general orthopedic Left shoulder fu.. SX 12/11/2020 general orthopedic PO Stich Absc ess right shoulder. Tentative surgery scheduled for 12/29/20. general orthopedic post op left shoulder. status post left shoulder arthroscopy with subacromial decompression, AC joint excision and rotator cuff repair 12/01/2020. he is in today with some drainage from his incision. general orthopedic post op left shoulder. sutures removed w/o complications general orthopedic post op left shoulder. general orthopedic mri results l eft shoulder general orthopedic new injury le ft knee and left shoulder. Knee symptoms began a few years ago. P! is sharp. P! is dependant on how much he is up and moving. P! is relieved with topical creams and tylenol. Left shoulder P! has been bothering him for awhile. P! radiates to the bicep and down to the elbow. P! is worse when laying down. P! can also be sharp. Topical creams and tylenol seem to help. Functional Status Date Functional Assessmen t No Information Instructions Date Instruction Additional Infor mation No Information Assessments Type Assessment Date No Information Patient Care Teams Name Effective Dates (start - stop) Status Members No Information
--- OUTSIDE RECORDS SUMMARY | 2025-05-15 15:36 | XMS_ITS | Encounter Summary ---
Author Organization [facility] Address [address] [place] [address] Care Team Providers Care Basin Cleaner Name Role Phone Fritz Leung MD Unavailable [phone] Jose Thurman MD Primary Care Provider [phone] Encounter Details Date Type Department Care Team ([facility] Contact Info) Description 05/14/2025 Orders Only [facility] Nephrology, Bone & Mineral Metabolism [address], [address] [place] [address] Kelley Goodman None None Proteinuria, unspecified type (Primary Dx) Social History Tobacco Use Types Packs/Day Years [...] on file documented as of this encounter Plan of Treatment Upcoming Encounters Date Type Department Care Team (Late Contact Info) Description 05/21/2025 3:40 PM EST Office Visit Professional [facility] Nephrology, Bone & Mineral Metabolism [address], [address] [place] [address] Teresa Gil MD [address] [facility] [address] [place] [address] 05/27/2025 1:50 PM EST Office Visit [facility] [address] [place] [address] Belinda Styles, GRAIN ELEVATOR SUPERINTENDENT, DNP [address] [place] [address] Scheduled Orders Name Type Priority Associated Diagnoses Orde r Schedule Renal Function Panel, Plasma Lab Routine Proteinuria, unspecified type Expected: 05/14/2025 (Approximate), Expires: 11/11/2026 Urinalysis with reflex microscopic (Culture NOT Included) Lab Routine Proteinuria, unspecified type Expected: 05/14/2025 (Approximate), Expires: 11/11/2026 Protein, Random, Urine with Creatinine Lab Routine Proteinuria, unspecified type Expected: 05/14/2025 (Approximate), Expires: 11/11/2026 Albumin-creatinine ratio, urine, random Lab Routine Proteinuria, unspecified type Expected: 05/14/2025 (Approximate), Expires: 11/11/2026 CBC W/O Differential Lab Routine Proteinuria, unspecified type Expected: 05/14/2025 (Approximate), Expires: 11/11/2026 documented as of this encounter Visit Diagnoses Diagnosis Proteinuria, unspecified type- Primary documented in this encounter Additional Health Concerns Assessment Noted Time A fall risk assessment has been complete d for the patient 05/21/2024 2:34 PM EST A Body Mass Index follow-up plan has been documented for the patient 05/21/2024 3:49 PM EST documented as of this encounter Care Teams Basin Cleaner Relationship Specialty Start Date End Date Jose Thurman MD [address] [place] [address] PCP - General 01/26/23 Fritz Leung MD [address] [place] [address] Referring Physician 06/28/22 documented as of this encounter
--- OUTSIDE RECORDS SUMMARY | 2025-05-15 15:36 | XMS_ITS | Clinical Summary ---
Author Organization [facility] Address [address] [address] Care Team Providers Care Fabric Inspector Name Role Phone Fritz Leung MD Unavailable [phone] Jose Thurman MD Primary Care Provider [phone] Allergies Active Allergy Reactions Criticality Noted Date [...] THREE TIMES DAILY Active Advocate Insulin Pen [place] 31G X 8 [facility] 2 Active HumuLIN R U-500 KWIKPEN 500 [...] (11/04/2022): Added automatically from request for surgery [id number] Encounters Date Type Department Care Team Description 05/14/2025 Telephone Professional [facility] Nephrology, Bone & Mineral Metabolism [address] , [address] [address] Kelley Goodman 05/14/2025 Orders Only [facility] Nephrology, Bone & Mineral Metabolism [address] , [address] [address] Kelley Goodman Proteinuria, unspecified type (Primary Dx) from Last 3 Months Family History 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 Relation Name Comments Diabetes Mother Pancreatic cancer Mother COPD Other Diabetes Other Emphysema Other Hypertension Other Pancreatic cancer Other Anesthesia problems Neg Hx Malig Hyperthermia Neg Hx Relation Name Status Comments Mother Other Social History Tobacco Use Types Packs/Day Years Used Date Smoking Tobacco: Former Cigarettes 2 10 2 003 - 2013 Tobacco Cessation:Counseling Given: Not Answered Alcohol Use [...] 05/21/2025 3:40 PM EST Office Visit Professional [facility] Nephrology, Bone & Mineral Metabolism [address] [facility], [address] [address] Teresa Gil MD [address] [facility] [address] [address] 05/27/2025 1:50 PM EST Office Visit [facility] [address] [place] [address] [address] Belinda Styles, ONLINE MARKETER, DNP [address] [address] Health Maintenance Due Date Last Done [...] 02/11/2015 [facility]-Abdominal Aortic Aneurysm (AAA) Screening 2019 KIO-PHPPH-22 Vaccine ( season) 2025 01/26/2022, 11/10/2021, 05/29/2021, Additional history exists [facility]-Depression Screening 05/21/2025 05/21/2024 [facility]-Medicare Annual Wellness (AWV) 09/04/2025 09/04/2024 [facility]-Lung Cancer Screening 09/28/20252024, 02/21/2024, 01/25/2023 [facility]-DTaP,Tdap,and [...] Discontinued 09/04/2024, 08/29/2023, 10/26/2021, Additional history exists [facility]-Influenza Vaccine Completed 04/22/2025 , 05/28/2024, 04/07/2023, Additional history exists HPV Vaccines Aged Out [...] age to complete this topic Insurance [facility] Care Teams Fabric Inspector Relationship Specialty Start Date End Date Jose Thurman MD [address] [place] [address] PCP - General 01/26/23 Fritz Leung MD [address] [address] Referring Physician 06/28/22
--- OUTSIDE RECORDS SUMMARY | 2025-05-15 15:36 | XMS_ITS | Encounter Summary ---
Author Organization [facility] Address [address] [place] [address] Care Team Providers Care Clinical Manager Home Care Name Role Phone Fritz Leung MD Unavailable [phone] Jose Thurman MD Primary Care Provider [phone] Encounter Details Date Type Department Care Team ([facility] Contact Info) Description 05/14/2025 Telephone [facility] Nephrology, Bone & Mineral Metabolism [address], [address] [place] [address] Kelley Goodman None None Social History Tobacco Use Types Packs/Day Years [...] 05/21/2025 3:40 PM EST Office Visit Professional [facility] Nephrology, Bone & Mineral Metabolism [address], [address] [place] [address] Teresa Gil MD [address] [facility] [address] [place] [address] 05/27/2025 1:50 PM EST Office Visit [facility] [address], [address] [place] [address] Belinda Styles, SALARY AND WAGE ADMINISTRATOR, DNP [address] [place] [address] documented as of this encounter Visit Diagnoses Not on filedocumented in this encounter Additional Health Concerns Assessment Noted Time A fall risk assessment has been complete d for the patient 05/21/2024 2:34 PM EST A Body Mass Index follow-up plan has been documented for the patient 05/21/2024 3:49 PM EST documented as of this encounter Care Teams Clinical Manager Home Care Relationship Specialty Start Date End Date Jose Thurman MD [address] [place] [address] PCP - General 01/26/23 Fritz Leung MD [address] [facility] [address] [place] [address] Referring Physician 06/28/22 documented as of this encounter
--- OUTSIDE RECORDS SUMMARY | 2025-05-15 15:37 | XMS_ITS | Clinical Summary ---
Author Organization [facility] Address [address] [place] [address] Phone Care Team Providers Care Humanities Instructor Name Role Phone Catarino Ryan MD Primary Care Provider [phone] Allergies Active Allergy Reactions Criticality Noted Date [...] Sensor (DEXCOM G6 SENSOR) Misc Device by [employer].(Non-Drug; Combo Route) route. Active ezetimibe (ZETIA) 10 [...] (01/29/2022): Added automatically from request for surgery [id number] Lower urinary tract symptoms due to benign prostatic hyperplasia 10/26/2021 Tear of left rotator cuff 09/28/2021 Overview (09/28/2021): Added automatically from request for surgery [id number] Chronic obstructive lung disease 06/30/2017 Chronic depression [...] Comments COPD (chronic obstructive pu lmonary disease) ([facility]) Hypertension Hyperlipidemia OR (myocardial infarction) ([facility]) age of 26 from being given wrong medication at hospital (Heparin) Edema BLE Diverticulosis Neuropathy Arthritis Diabetes mellitus ([facility]) type 2-d excom sensor Urinary incontinence Oxygen dependent pt uses 2-3L O2 most of the time as of 10/23/21 Sleep apnea USES OXYGEN 2-3L /NC CONT Asthma Bronchitis, chronic (HCC) Irritable bowel syndrome Neuromuscular disorder ([facility]) Depression Anxiety disorder Chronic pain [...] topic Medical Devices Implanted Type Area Data Integration Developer Device Identifier Shelf Expiration Date Model / Serial / Lot Knee Right: Knee Lens Bilateral: Eye Bone Bank Bone For Fusion Neck Drexel Sut Y-Knt Self-Pnch Ndl - [id number] Implanted:Qty : 1 on 12/01/2020 by Partha Kuo MD at [facility] Left: Shoulder CONMED:LINVATEC 07/22/2025 [id number] / / [id number] Drexel Sut Y-Knt Self-Pnch Ndl - [id number] Implanted:Qty : 1 on 10/27/2021 by Partha Kuo MD at [facility] Left: Shoulder CONMED:LINVATEC 06/01/2026 [id number] / / [id number] Liner Tib Sz Gh/6-9 10mm Persn Lt Kn Art Ps Fx Bear Melina-E - [id number] Implanted:Qty : 1 on 02/02/2022 by Partha Kuo MD at [facility] Left: Knee VILMA:VILMA [id number] 02/02/2026 [id number] / / [id number] Cement Refobacin 1x40 Gm Hvisc Bn Gent Lf - [id number] Implanted:Qty : 1 on 02/02/2022 by Partha Kuo MD at [facility] Left: Knee VILMA:VILMA 12/18/2023 [id number] / / [id number] Patlr 35mm Blayne Persn Pe Melina-E Ps Kn - [id number] Implanted:Qty : 1 on 02/02/2022 by Partha Kuo MD at [facility] Left: Knee VILMA:VILMA [id number] 11/17/2028 [id number] / / [id number] Comp Fem Sz8 Std Persn Lt Kn Ps Blayne Cocr Por - [id number] Implanted:Qty : 1 on 02/02/2022 by Partha Kuo MD at [facility] Left: Knee VILMA:VILMA 07/02/2031 [id number] / / [id number] Baseplate Tib Sz-G Stm Lt Kn Blayne Persn Sugar Tiv Norman 5d - [id number] Implanted:Qty : 1 on 02/02/2022 by Partha Kuo MD at [facility] Left: Knee VILMA:VILMA [id number] 08/17/2031 [id number] / / [id number] Procedures Procedure Name Priority Date/Time Associated Diagnosis [...] mL/min/1.7 3 m2 09/24/2021 7:58 PM EDT [facility] Comment:Estimated GFR was ca lculated using the CKD-EPIcr (2020) equation refit without race. The equation is recommended by the National Kidney Foundation - [place] Society of Nephrology Task Force. Blood VENOUS BLOOD / Unknown Venipuncture / Unknown 09/24/2021 5:30 PM EDT 09/24/2021 5:30 PM EDT us Miroslava Campo MD CHEMISTRY ORDERABLES Final R esult [facility] [address] [facility], [place] [address] [facility] [address] [place] [address] from Last 3 Months or Most Recently Relevant to Health Maintenance Insurance [place]ICARE [place] PART A AND B [place] PART A AND B [facility] Advance Directives For more information, please contact: [phone] Documents on File Type Date Recorded Patient Association Executive Expl anation ADVANCE DIRECTIVE 10/27/2021 9:38 AM ADVANCE DIRECTIVE 12/01/2020 8:44 AM * Full Code (Latest Code Status on File) Date Activated Date Inactivated Comments 02/02/2022 12:31 PM 02/04/2022 7:00 PM Care Teams Humanities Instructor Relationship Specialty Start Date End Date Catarino Ryan MD [address] [place] [address] PCP - General Family Medicine 10/26/21
[2025-05-15 15:39] LABS: Microscopic, Urine URINE MICROSCOPIC (MICROSCOPIC)
[2025-05-15 15:57] LABS: Hematocrit 41.2 % (42.0-52.0); Hemoglobin 13.1 g/dL (14.1-18.0); Mean Corpuscular HGB Conc 31.8 g/dL (31.8-35.4); Mean Corpuscular Hemoglobin 28.7 pg (27.0-31.2); Mean Corpuscular Volume 90.2 fl (80-94); Nucleated Red Blood Cells % 0 %; Platelet Count 253 K/mm3 (142-424); Red Blood Count 4.57 M/mm3 (4.60-6.20); Red Cell Distribution Width-SD 47.8 fL; White Blood Count 11.4 K/mm3 (4.8-10.8)
[2025-05-15 16:38] LABS: Bilirubin,Urine Negative (Negative); Color,Urine YELLOW (Yellow); Glucose,Urine (UA) Negative (Negative); Ketones,Urine TRACE (Negative); Leukocyte Esterase,Urine 1+ (Negative); PH,Urine 6.0 (5.0-8.5); Protein,Urine 1+ (Negative); Specific Gravity, Urine 1.020 (1.005-1.030); Urobilinogen,Urine 1.0 EU/dl (0.2)
[2025-05-15 16:51] LABS: Bacteria,Urine 1+ /lpf; Mucus,Urine 1+ /lpf
[2025-05-15 18:01] LABS: Albumin Level 4.5 g/dl (3.5-5.0); Anion Gap 13.3 mEq/L (5-15); Blood Urea Nitrogen 25 mg/dl (9-20); Calcium 9.2 mg/dl (8.4-10.2); Carbon Dioxide 24 mmol/L (22.0-30.0); Chloride 106 mmol/L (98-107); Creatinine,Serum 1.10 mg/dl (0.66-1.25); Estimated Glomerular Filt Rate 66 ml/min (>60); GFR (African American) 80 ML/MIN (>60); Glucose 128 mg/dl (74-100); Phosphorous 3.5 mg/dl (2.5-4.5); Potassium 4.3 mmoL/L (3.5-5.1); Sodium 139 mmol/L (136-145)
== END 2025-05-15 23:59 | disposition home or self-care (01) ==
LOC: LAB 15:34
PROVIDERS: PCP Internal Medicine; Visit Provider Internal Medicine Nephrology
DX: R80.9 Proteinuria, unspecified (principal)
CPT/HCPCS: 36415; 80069; 81001; 82043; 82570; 84156; 85027; 87086

== ENCOUNTER 2025-06-05 15:00 | Outpatient (RCR) | payer MEDICARE, BC, SELFPAY | END 2025-06-05 23:59 | disposition home or self-care (01) | LOC: PT 15:00 | PROVIDERS: PCP Internal Medicine; Visit Provider Internal Medicine | DX: M17.12 Unilateral primary osteoarthritis, left knee (principal); R29.898 Other symptoms and signs involving the musculoskeletal system; R29.818 Other symptoms and signs involving the nervous system | CPT/HCPCS: 97530 ==

== ENCOUNTER 2025-06-15 09:02 | Outpatient (CLI) | payer MEDICARE, BC, SELFPAY ==
--- OUTSIDE RECORDS SUMMARY | 2025-05-27 13:50 | XMS_ITS | Encounter Summary ---
Author Organization Healthcare Address [address] [place] [address] Care Team Providers Care Collar Turner Name Role Phone Fritz Leung MD Unavailable [phone] Jose Thurman MD Primary Care Provider [phone] Reason for Visit * Reason Comments Follow-up Encounter Details Date Type Department Care Team (Late st Contact Info) Description 05/27/2025 1:50 PM EST Office Visit [facility] [address], [address] [place] [address] Belinda Styles P, CHANNEL SPECIALIST, DNP [address] [place] [address] Phimosis (Primary Dx); Acquired buried penis Social History Tobacco Use Types Packs/Day Years Used Date Smoking Tobacco: Former Cigarettes 2 2012 Alcohol Use Standard Drinks/Week Comments Not Currently 0 (1 standard drink = 0.6 oz pur e alcohol) not for many years PHQ-2 Answer Date Recorded Patient Health Questionnaire-2 Score 0 05/27/2025 PHQ-2A Answer Date Recorded Patient Health Questionnaire-2 Score 0 10/25/2022 Sex and Gender Information Value Date Recorded Sex Assigned at Male 12/14/2022 8:07 AM EDT Legal Sex Male 8:21 PM EDT Gender Identity Male 12/14/2022 8:07 AM EDT Sexual Orientation Not on file documented as of this encounter Last Filed Vital Signs Vital Sign Reading Time Taken Comments Blood Pressure 114/66 05/27/2025 2:05 PM EST Pulse 84 05/27/2025 2:05 PM EST Temperature - - Respiratory Rate 16 05/27/2025 2:05 PM EST Oxygen Saturation - - Inhaled Oxygen Concentration - - Weight 147 kg (323 lb) 05/27/2025 2:05 PM EST Height - - Body Mass Index 46.35 01/26/2024 10:10 AM EDT documented in this encounter Functional Status * BP Answer Date of Assessment Author 114/66 05/27/2025 2:05 PM EST Alysia Batres * Pulse Answer Date of Assessment Author 84 05/27/2025 2:05 PM Alysia Malone * Resp Answer Date of Assessment Author 16 05/27/2025 2:05 PM Alysia Malone * Weight Answer Date of Assessment Author 5168 05/27/2025 2:05 PM Alysia Malone * Total Weight Change Percent Answer Date of Assessment Author 2222 05/27/2025 2:05 PM Alysia Malone * Weight Change Since Preop Answer Date of Assessment Author 146.48 05/27/2025 2:05 PM Alysia Malone * Weight Change Since Last Visit Answer Date of Assessment Author 146.48 05/27/2025 2:05 PM Alysia Malone * Weight Change 24 hrs Answer Date of Assessment Author -.088 05/27/2025 2:05 PM Alysia Malone * Depression Screening Question Answer Date of Assessment Author Will the patient answer the depression risk questions? Yes 05/27/2025 2:01 PM Alysia Malone * Over the past 2 weeks, how often have you been bothered by any of the following problems? Question Answer Date of Assessment Author Little interest or pleasure in doing things Not at all 05/27/2025 2:01 PM Alysia Malone Feeling down, depressed, or hopeless Not at all 05/27/2025 2:01 PM Alysia Malone Patient Health Questionnaire -2 Score 0 05/27/2025 2:01 PM Alysia Malone * How difficult have these problems made it for you to do your work, take care of things at home, or get along with other people? Answer Date of Assessment Author Not difficult at all 05/27/2025 2:01 PM Alysia Sen * Weight Change Since Preop Answer Date of Assessment Author 146.51 05/27/2025 2:05 PM Alysia Malone * Weight Change Since Last Visit Answer Date of Assessment Author 146.51 05/27/2025 2:05 PM Alysia Malone * Difference in Weight Since Last Visit Answer Date of Assessment Author -0.09 05/27/2025 2:05 PM EST Alysia Batres * Pain Score Answer Date of Assessment Author 0 05/27/2025 2:05 PM EST Alysia Batres * Pain Screening/Additional Assessments Question Answer Date of Assessment Author Pain Screening/Assessments Pain Screening 05/27/2025 2 :05 PM Alysia Malone * Pain Screening Answer Date of Assessment Author 0-10 05/27/2025 2:05 PM Alysia Malone * BP Answer Date of Assessment Author 114/66 05/27/2025 2:05 PM Alysia Malone * Pulse Answer Date of Assessment Author 84 05/27/2025 2:05 PM Alysia Malone * Resp Answer Date of Assessment Author 16 05/27/2025 2:05 PM Alysia Malone * Weight Answer Date of Assessment Author 5168 05/27/2025 2:05 PM Alysia Malone * Over the past 2 weeks, how often have you been bothered by any of the following problems? Question Answer Date of Assessment Author Little interest or pleasure in doing things Not at all 05/27/2025 2:01 PM Alysia Malone Feeling down, depressed, or hopeless Not at all 05/27/2025 2:01 PM Alysia Malone Patient Health Questionnaire -2 Score 0 05/27/2025 2:01 PM Alysia Malone * How difficult have these problems made it for you to do your work, take care of things at home, or get along with other people? Answer Date of Assessment Author Not difficult at all 05/27/2025 2:01 PM EST Alysia Astorga * Pain Score Answer Date of Assessment Author 0 05/27/2025 2:05 PM EST Saw Batresliyah documented as of this encounter Mental Status * BP Answer Entry Date Author 114/66 05/27/2025 2:05 PM EST Medardo Alysia * Pulse Answer Entry Date Author 84 05/27/2025 2:05 PM EST Medardo Alysia * Resp Answer Entry Date Author 16 05/27/2025 2:05 PM EST Medardo Alysia * Weight Answer Entry Date Author 5168 05/27/2025 2:05 PM EST BatresAlysia * Total Weight Change Percent Answer Entry Date Author 2222 05/27/2025 2:05 PM EST BatresAlysia * Weight Change Since Preop Answer Entry Date Author 146.48 05/27/2025 2:05 PM EST BatresAlysia * Weight Change Since Last Visit Answer Entry Date Author 146.48 05/27/2025 2:05 PM EST BatresAlysia * Weight Change 24 hrs Answer Entry Date Author -.088 05/27/2025 2:05 PM EST BatresAlysia * Depression Screening Question Answer Entry Date Author Will the patient answer the depression risk questions? Yes 05/27/2025 2:01 PM Alysia Malone * Over the past 2 weeks, how often have you been bothered by any of the following problems? Question Answer Entry Date Author Little interest or pleasure in doing things Not at all 05/27/2025 2:01 PM Alysia Malone Feeling down, depressed, or hopeless Not at all 05/27/2025 2:01 PM EST Alysia Batres Patient Health Questionnaire -2 Score 0 05/27/2025 2:01 PM EST Alysia Batres * [facility] Calculation Answer Entry Date Author 3 05/27/2025 2:01 PM EST Alysia Batres * How difficult have these problems made it for you to do your work, take care of things at home, or get along with other people? Answer Entry Date Author Not difficult at all 05/27/2025 2:01 PM EST Alysia Astorga * Restart Pain Assessment Timer Answer Entry Date Author Yes 05/27/2025 2:05 PM EST Alysia Batres * Weight Change Since Preop Answer Entry Date Author 146.51 05/27/2025 2:05 PM Alysia Malone * Weight Change Since Last Visit Answer Entry Date Author 146.51 05/27/2025 2:05 PM EST Alysia Batres * Difference in Weight Since Last Visit Answer Entry Date Author -0.09 05/27/2025 2:05 PM EST Alysia Batres * Pain Score Answer Entry Date Author 0 05/27/2025 2:05 PM EST Alysia Batres * Pain Screening Answer Entry Date Author 0-10 05/27/2025 2:05 PM EST Alysia Batres documented in this encounter Miscellaneous Notes * Progress Notes - Belinda Styles, CHANNEL SPECIALIST, DNP - 05/27/2025 1:50 PM EST [facility] Visit CC: phimosis HPI: Catarino Allen is a 70 y.o. male with history of phimosis who underwent dorsal slit and penile biopsy on 12/14/[address] Monteiro. Intraoperatively he was found to have significant inflammatory and lichen sclerotic changes to glans and foreskin with thick phimotic ring. Surgical pathology resulted with hyperkeratosis and hypergranulosis. Catarino presents today in follow up. He has been able to void without difficulty. Continues to sit to void. He continues to wipe his penis dry with every void with toilet paper and will then use a baby wipe to clean it off. He hasn't used the combination steroid/antifungal topical in a while. Last A1c was 6.7. He is wearing nasal cannula with 2 L oxygen. Past 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: Past 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[1] Past Surgical History: Surgical History[2] Family History: Family History[3] Social History: Social History[4] Physical Exam: Visit Vitals BP 114/66 Pulse 84 Resp 16 Wt 147 kg (323 lb) BMI 46.35 kg/m?? Smoking Status Former BSA 2.69 m?? General: Alert, in no acute distress, well appearing. Pulmonary: No increased work of breathing or signs of respiratory distress. Using 2 L via NC. Gastrointestinal: Abdomen non distended. Obese. Musculoskeletal: Normal ROM of UEs. Normal gait and station. Skin: Warm, dry, and intact. No obvious rashes/open sores. Neurologic: CN 2-12 grossly intact. Psychiatric: oriented to person, place, and time. Mood and affect appeared normal. Hematologic/Lymphatic/Immunologic: No obvious bruises or sites of spontaneous bleeding. Genitourinary: pale, thickened foreskin, unable to fully retract to visualize glans, able to see patent meatus. Assessment: 70 y.o. male with phimosis s/p dorsal slit and penile biopsy on 12/14/22. He is able to void withoutpain or difficulty which is a benefit. Recommend continuing to washing the areas regularly with warm soapy water and focus on keeping the area clean and dry. Recommend he use topical combination steroid/antifungal BID as needed. Follow up in 6 months. He is a and [facility]. Plan: - Continue to use topical Mycolog BID as needed. - Follow up in 6 months. 20 minutes were spent today on review of patient's medical history, obtaining history, exam, reviewof any relevant results, and discussion of pathophysiology with appropriate plan with counseling given to patient. [1] Past 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: Diagnosis Date Asthma CAD (coronary artery disease) Depression Diabetes mellitus Myocardial infarction Neuropathy Phimosis 11/04/22 Added automatically from request for surgery [id number] Spinal stenosis [2] Past Surgical History: Procedure Laterality Date CARDIAC STENT N/A 06/10/2022 x2 CATARACT EXTRACTION Bilateral CERVICAL FUSION N/A OTHER SURGICAL HISTORY eyebrow lift PARTIAL KNEE ARTHROPLASTY Right 2013 ROTATOR CUFF REPAIR TOTAL KNEE ARTHROPLASTY Left 2021 [3] Family History Problem Relation Name Age of Onset Diabetes Mother Pancreatic cancer Mother Pancreatic cancer Other Diabetes Other COPD Other Emphysema Other Hypertension Other Anesthesia problems Neg Hx Malig Hyperthermia Neg Hx [4] Social History Tobacco Use Smoking status: Former Current packs/day: 0.00 Average packs/day: 2.0 packs/day for 10.0 years (20.0 ttl pk-yrs) Types: Cigarettes Start date: 2002 Quit date: 2012 Years since quittin.9 Vaping Use Vaping status: Never Used Substance Use Topics Alcohol use: Not Currently Comment: not for many years Drug use: Never documented in this encounter Plan of Treatment Upcoming Encounters Date Type Department Care Team (Late st Contact Info) Description 06/25/2025 2:00 PM EST Office Visit [facility] [employer] [place] [facility] [address] [facility], [address] [place] [address] Teresa Gil MD [address] [place] [address] 11/27/2025 1:50 PM EDT Office Visit [facility] [address], [address] [place] [address] Belinda Styles APRN, VAUGHN [address] [place] [address] documented as of this encounter Visit Diagnoses Diagnosis Phimosis- Primary Redundant prepuce and phimosis Acquired buried penis documented in this encounter Additional Health Concerns Assessment Noted Time A fall risk assessment has been complete d for the patient 05/27/2025 2:01 PM EST A Body Mass Index follow-up plan has been documented for the patient 05/27/2025 2:32 PM EST documented as of this encounter Care Teams Collar Turner Relationship Specialty [place] [id number] PCP - General 01/26/23 Fritz Leung MD [address] [facility] [address] [place] [address] Referring Physician 06/28/22 documented as of this encounter
[2025-06-15 20:21] LABS: Coronavirus 19, PCR Not Detected (NotDetected); Influenza A, PCR Not Detected (NotDetected); Influenza B, PCR Not Detected (NotDetected)
--- OUTSIDE RECORDS SUMMARY | 2025-06-17 09:11 | XMS_ITS | Continuity of Care Document ---
Author Organization [facility], ENDOCRINOLOGY Address [address] [place] [phone] Care Team Providers Care Thread Spinner Name Role Phone JERRY ROSENTHAL Medical Lab Technologist MIQUEL STOLL Technology Instructor MADELINE ALVAREZ II Primary Care Provider [phone] Assessment No assessment recorded. Plan of Treatment Reminders Order Date Submit Date Provider Last Modified By Organization Details Last Modified Time Details Appointments DERM VISIT 2025 11:40A M ELIZABETH THACKER DO Not available Not available Not available RECHECK 2025 01:30P M JERRY ROSENTHAL ARTIST CONSULTANT Not available Not available Not available LEVEL 2 2025 01:30P M MIQUEL STOLL MD Not available Not available Not available Lab glucose, fingerst ick, blood 2024 025 [email or web address] [id number] [facility], [address] [place] [address], [phone], 05/01/2025 14:33:25 hemoglob in A1C, fingerst ick 2024 025 8 [facility], [address] [place] [address], [phone], 05/01/2025 14:33:25 Referral None recorded . Procedures None recorded . Surgeries None recorded . Imaging None recorded . Medication Orders Humulin R U-500 (Conc) Insulin Kwikpen 500 unit/mL (3 mL) subcutan eous 2024 025 [facility], [address] [facility] [address] [place], [phone], 05/09/2025 11:59:09 Mounjaro 5 mg/0.5 mL subcutan eous pen injector 2024 025 [facility], [address] [facility] [address] [place], [phone], 05/27/2025 17:08:00 Patient TargetsNo targets recorded. Patient Instructions Encounter Date Encounter Id Patient Instructions Last Modified By Organization Details Last Modified Time 05/01/2025 [id number] [email or web address] Not available 04/2025 08:43:41 Reason for Referral None Reported. Results Created Date Observation Date Name Description Value Unit Range Abnormal Flag Note LastModifiedBy Organization Detail LastModifiedTime 05/01/2005/01/2025 gluco se, finge rstic k, blood glucose, fingerstick 143 mg/dL 70 - 100 Not Available [facility] [address] [place] [address], [phone], 04/30/2025 08:43:43 05/01/2005/01/2025 hemog lobin A1C, finge rstic k hemoglobin A1C % 6.7 4.0 - 5.6 Not Available [facility] [place] [address] [place] [address], [phone], 04/30/2025 08:43:43 Result Notes None recorded. 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 475268503 Active 2015 From Automate d Load;Pro vider: Magdalena Fuentes;Sta tus: Active Not Available [facility] 7 06:21:34 Pain in right foot 21076056561 9107 Active 2015 From Automate d Load;Pro vider: Magdalena Fuentes;Sta tus: Active Not Available [facility] 7 06:45:00 Congenit al talipes calcaneo valgus 638687547 Active 2015 From Automate d Load;Pro vider: Magdalena Fuentes;Sta tus: Active Not Available [facility] 7 07:05:37 Tracheob ronchiti s 88809211 Completed 201501/03/2017 From Automate d Load;Pro vider: Celia Monge;St atus: Active MIQUEL HERRMANN MD [address] [place] [address], [address] , [facility] 7 13:46:47 Senile hyperker atosis 137980026 Active 2015 From Automate d Load;Pro vider: Marilin Gonsales;St atus: Active Not Available [facility] 7 06:00:03 Neoplast ic disease Completed 201501/03/2017 From Automate d Load;Pro vider: Marilin Gonsales;St atus: Active MIQUEL HERRMANN MD [address] [place] [address], [address] , [facility] 7 13:46:51 Pain in left foot 94663550611 9107 Completed 201501/03/2017 From Automate d Load;Pro vider: Magdalena Fuentes;Sta tus: Active MIQUEL HERRMANN MD [address] [place] [address], [address] , [facility] 7 13:46:55 Disorder of capillar ies 69448430 Active 2015 From Automate d Load;Pro vider: Settles, Marilin;St atus: Active Not Available [facility] 7 07:51:38 Hyperten sive disorder 83350080 Active 2017 MIQUEL HERRMANN MD [address] [place] [address], [address] , [facility] 2 07:59:22 Hyperlip idemia 71396905 Active 2017 MIQUEL HERRMANN MD [address] [place] [address], [address] , [facility] 2 07:59:22 Chronic depressi on 916750088 Active 2017 MIQUEL HERRMANN MD [address] [place] [address], [address] , [facility] 2 07:59:22 Chronic obstruct an pulmonar y disease 79653667 Active 2017 MIQUEL HERRMANN MD [address] [place] [address], [address] , [facility] 2 07:59:22 Diabetic peripher al neuropat hy 720280817 Active 2017 MIQUEL HERRMANN MD [address] [place] [address], [address] , [facility] 2 07:59:22 Venous insuffic iency of lower limb 035612909 Active 2020 MIQUEL HERRMANN MD [address] [place] [address], [address] , [facility] 1 16:20:44 Multiple complica tions due to type 2 diabetes mellitus Active 2021 JERRY ROSENTHAL APRN [address] [place] [address], [address] , [facility] 2 12:26:29 Lower urinary tract symptoms due to benign prostati c hypertro phy 45679139407 101 Active 2021 MIQUEL HERRMANN MD [address] [place] [address], [address] , [facility] 2 08:02:53 Chronic low back pain 271052310 Active 2021 MIQUEL HERRMANN MD [address] [place] [address], [address] , [facility] 2 08:02:53 Body mass index 40+ - severely obese 133342481 Active 2021 MIQUEL HERRMANN MD [address] [place] [address], [address] , [facility] 2 08:02:[address] segment elevatio n myocardi al infarcti on 74867336952 9104 Active 2021 MIQUEL HERRMANN MD [address] [place] [address], [address] , [facility] 2 07:52:05 Morbid obesity 774316233 Active 2022 MIQUEL HERRMANN MD [address] [place] [address], [address] , [facility] 3 15:15:21 Recurren t major depressi on 99747598 Active 2022 MIQUEL HERRMANN MD [address] [place] [address], [address] , [facility] 3 15:23:59 Renal disorder due to type 2 diabetes mellitus 033851431 Active 2024 JERRY ROSENTHAL APRN [address] [place], [address] , [facility] 5 13:45:35 [facility] l hyperten florinda 47827818 Active 2024 JERRY ROSENTHAL APRN [address] [place], [address] , [facility] 5 13:45:35 Pile easily reducibl e 993665492 Active 2024 EVITA DIAMOND MD [address] [place], [address] , [facility] 5 13:49:04 Problem Notes None recorded. Procedures Surgical History Date Name Laterality Status Provider Name and Address Organization Details Recorded Time 11/12/2 025 Diabetic Foot Exam completed JERRY ROSENTHAL, ARTIST CONSULTANT [address] [place], [address], [facility] 04/30/2025 08:43:41 025 Diabetic Foot Exam completed JERRY ROSENTHAL, ARTIST CONSULTANT [address] [place], [address], [facility] 12/24/2024 13:45:31 025 Diabetic Foot Exam completed JERRY ROSENTHAL, ARTIST CONSULTANT [address] [place], [address], [facility] 08/23/2024 12:17:37 024 Laryngoscopy Flex completed Fred Fletcher [facility] 06/18/2024 15:35:17 024 Destruction BN Lesions completed ELIZABETH THACKER DO [address] [place], [address], [facility] 03/08/2024 17:02:10 022 TCM completed [facility] 06/03/2022 07:19:18 022 OCT/Retina completed MIQUEL STOLL MD [facility] [place], [address], [facility] 06/07/2022 16:04:02 022 catheterization of left heart completed [facility] 06/03/2022 07:29:27 022 Destruction BN Lesions completed Damaris Johnson [facility] 08/05/2021 14:43:50 022 Cystoscopy - male completed KARUNA ADLRIDGE MD [address] [place], [address], [facility] 07/13/2021 13:19:21 021 Post Void Residual; Ultrasound completed Katina Camejo [facility] 05/19/2021 15:49:13 021 OCT/Retina completed MIQUEL STOLL MD [facility] [place], [address], [facility] 03/06/2021 12:14:35 021 repair of shoulder completed Monica Osorio [facility] 02/09/2021 14:40:09 021 Bubbles Echocardiogram completed ISAAK CASTRO MD [address] [place], [address], [facility] 07/21/2020 15:43:23 021 Diffusion Capacity completed SILVESTRE MCLAIN PA-C [address] [place] [address], [address], [facility] 07/10/2020 15:30:41 021 Lung Volumes, Plethysmography completed SILVESTRE MCLAIN PA-C [address] [place] [address], [address], [facility] 07/10/2020 15:31:01 021 Spirometry completed SILVESTRE MCLAIN PA-C [address] [place] [address], [address], [facility] 07/10/2020 15:31:15 020 Biopsy Skin Lesion; Punch completed [facility] 08/20/2019 12:12:34 020 Destruction BN Lesions completed [facility] 08/20/2019 12:12:09 019 Digital Rectal Screening Exam completed MIQUEL HERRMANN MD [address] [place] [address], [address], [facility] 07/13/2018 16:22:10 018 Digital Rectal Screening [place] [address] [place] [address], [address], [facility] 07/11/2017 16:34:07 017 MNT Initial Visit completed [address] [place], [address], [facility] 01/20/2017 14:21:14 017 Audiogram completed JACLYN WHARTON [address] [place], [address], [facility] 06/30/2016 14:57:39 011 Cervical Spine Surgery completed Brea Leos [facility] 06/08/2016 14:35:47 Cataract Surgery completed Melissa holly giuseppe [facility] 06/08/2016 14:35:11 Knee Surgery completed Brea Leos [facility] 06/08/2016 14:37:21 Imaging Results None recorded. Procedure Notes None recorded. Medical Equipment None Reported. Allergies Allergen ID Allergen Name Allergen Category Reaction Reaction Severity Criticality Documentation Date Start Date Code Code System Note Provider Name and Address Organization Details Recorded Time 341040 Non-stero idal anti-infl ammatory agent (substanc e) medicatio n Not available Not available Not available 09/16/2016 12168 5008 [facility]ito Jack [facility] 7 10:06:11 145309 Substance with sulfonami de structure and antibacte rial mechanism of action (substanc e) medicatio n Not available Not available Not available 09/16/2016 00361 8003 [facility] Verito Jack [facility] 7 10:06:23 931676 aspirin medicatio n Not available Not available Not available 09/16/2016 1191 RxNorm Jocelyn Kay [facility] 2 14:56:06 745681 pravastat in medicatio n rash Not available Not available 08/18/2022 51646 RxNorm JERRY ROSENTHAL, ARTIST CONSULTANT [address] [place], [address], [facility] 3 16:14:52 120368 lisinopri l medicatio n cough Not available Not available 12/08/2023 19424 RxNorm JERRY ROSENTHAL, ARTIST CONSULTANT [address] [place], [address], [facility] 4 10:43:26 Medications Name Sig Start Date Stop Date Status Note LastModified by Organization Details LastModified Time eq mucus er 600mg tab TAKE 1 TO 2 TABLETS BY MOUTH TWICE DAILY NEEDED FOR CONGESTI ON 09/12 /2025 completed Not Available Not Available Not Available [...] Available Not Available Nasonex 50 mcg/actua tion [place] 2 sprays every day by intranas al [...] Available Advocate Pen Needle 31 gauge x /16 USE DIRECTED 2 TIMES A DAY WITH INSULIN active [...] subcutane ous INJECT UP TO 50 UNITS SUBCUTAN EOUSLY 2 TIMES A DAY BEFORE MEALS active [...] Sensor device USE directed EVERY 10 DAYS 2024 active Not Available Not Available Not Avai lable Ozempic 0.25 mg or 0.5 mg (2 mg/3 mL) subcutane ous pen injector INJECT 0.5 MG SUBCUTAN EOUSLY EVERY WEEK 11/30 completed Not Available Not Available Not Available Vitals Date Recorded Body height Body mass index (BMI) Body weight Heart rate Systolic And Diastolic Provider Name and Address Organization Details Last Updated DateTime 05/01/2025 175.26 cm 47.8 kg/m2 966477.9 3 g 77 /min 116/78 mm[Hg] Carolyn Strings [facility] 05/01/2025 14:15:06 Social History Question Answer Notes LastModified by Organizat ion Details LastModified Time Tobacco Smoking Status Former Smoker QUIT 2005 Brea Leos [facility] 06/08/2016 14:34:38 Do You Have An Advance Directive? No [email or web address] Information not available 06/07/2019 What Is Your Level Of Caffeine Consumption? Moderate Information not available 07/08/2017 How Much Tobacco Do You Chew? None Information not available 07/13/2018 What Type Of Diet Are You Following? REGULAR Information not available 06/07/2019 Which Illicit Or Recreational Drugs Have You Used? No [email or web address] Information not available 06/07/2019 Education 2 Year College Information not available 07/08/2017 When Did You Quit Smoking? 16+yearssinc elastcigaret te [email or web address] Information not available 10/28/2022 Live Alone Or With Others? With Others Information not available 07/08/2017 Marital Status navya Gonsales n not available 06/08/2016 What Was The Date Of Your Most Recent Tobacco Screening? 11/08/2022 [email or web address] Information not available 11/08/2022 What Is Your Relationship Status? [email or web address] Information not available 05/19/2021 Seat Belts Used [...] not available 07/08/2017 What is your occupation? [employer] Information not available 07/11/2017 Do you or [...] Heart Disease Y Bronchitis Y Heart Attack ([place]) Y Headaches Y Hypertension Y Osteoporosis Y Glasses/Contacts Y Immunizations Vaccine Type Date Status Note Provider Nam e and Address Organization Details Recorded Time zoster live 5 completed Not Available [facility] 05/01/2025 13:51:50 pneumococcal polysaccharide PPV23 1 completed Not Available [facility] 05/01/2025 13:51:50 COVID-19, mRNA, LNP-S, PF, 100 mcg/0.5mL dose or 50 mcg/0.25mL dose 1 completed Not Available [facility] 05/01/2025 13:51:50 Influenza, recombinant, quadrivalent, PF 3 completed Not Available [facility] 05/01/2025 13:51:50 COVID-19, mRNA, LNP-S, PF, 50 mcg/0.5 mL 3 completed Not Available [facility] 05/01/2025 13:51:50 COVID-19, mRNA, LNP-S, PF, mira-sucrose, 30 mcg/0.3 mL 4 completed Not Available [facility] 05/01/2025 13:51:50 Influenza, high-dose, trivalent, PF 4 completed Not Available [facility] 05/01/2025 13:51:50 COVID-19, mRNA, LNP-S, PF, 10 mcg/0.2 mL 5 completed Not Available [facility] 05/01/2025 13:51:50 Influenza, high-dose, trivalent, PF 5 completed Not Available [facility] 05/01/2025 13:51:50 Influenza, high-dose, trivalent, PF 9 completed Not Available [facility] 07/07/2019 02:48:55 Pneumococcal conjugate PCV 13 0 completed Not Available [facility] 07/07/2019 02:48:26 Influenza, high-dose, quadrivalent, PF 0 [facility] 15:59:45 Influenza, high-dose, quadrivalent, PF 2 completed Monica Osorio null, [facility] 07/28/2021 12:03:00 pneumococcal polysaccharide PPV23 2 completed MIQUEL HERRMANN MD [address] [place] [address], [address], [facility] 08/18/2021 11:04:59 Influenza, split virus, quadrivalent, preservative 7 completed MIQUEL HERRMANN MD [address] [place] [address], [address], [facility] 11/08/2022 15:20:57 pneumococcal polysaccharide PPV23 3 [facility] 08:08:52 Tdap 9 completed MIQUEL HERRMANN MD [address] [place] [address], [address], [facility] 11/08/2022 15:20:58 influenza nasal, unspecified formulation 2 completed MIQUEL HERRMANN MD [address] [place] [address], [address], [facility] 11/08/2022 15:20:58 zoster recombinant 9 completed MIQUEL HERRMANN MD [address] [place] [address], [address], [facility] 11/08/2022 15:20:57 zoster recombinant 9 completed MIQUEL HERRMANN MD [address] [place] [address], [address], [facility] 11/08/2022 15:20:57 Influenza, high-dose, quadrivalent, PF 0 completed MIQUEL HERRMANN MD [address] [place] [address], [address], [facility] 11/08/2022 15:20:57 Influenza, high-dose, quadrivalent, PF 1 completed MIQUEL HERRMANN MD [address] [place] [address], [address], [facility] 11/08/2022 15:20:57 COVID-19, mRNA, LNP-S, PF, 100 mcg/0.5mL dose or 50 mcg/0.25mL dose 1 completed MIQUEL HERRMANN MD [address] [place] [address], [address], [facility] 11/08/2022 15:20:57 COVID-19, mRNA, LNP-S, PF, 100 mcg/0.5mL dose or 50 mcg/0.25mL dose 2 completed MIQUEL HERRMANN MD [address] [place] [address], [address], [facility] 11/08/2022 15:20:57 COVID-19, mRNA, LNP-S, PF, 100 mcg/0.5mL dose or 50 mcg/0.25mL dose 1 completed MIQUEL HERRMANN MD [address] [place] [address], [address], [facility] 11/08/2022 15:20:58 COVID-19, mRNA, LNP-S, bivalent, PF, 50 mcg/0.5 mL or 25mcg/0.25 mL dose 2 completed MIQUEL HERRMANN MD [address] [place] [address], [address], [facility] 11/08/2022 15:20:58 Hep A, adult 0 completed MIQUEL HERRMANN MD [address] [place] [address], [address], [facility] 11/08/2022 15:20:58 Hep A, adult 9 completed MIQUEL HERRMANN MD [address] [place] [address], [address], [facility] 11/08/2022 15:20:58 Influenza, split virus, quadrivalent, PF 6 completed MIQUEL HERRMANN MD [address] [place] [address], [address], [facility] 11/08/2022 15:20:58 Past Encounters Encounter ID Performer Location Encounter Start Date Encounter Closed Date Diagnosis/Indication Diagnosis SNOMED-CT Code Diagnosis ICD10 Code Diagnosis IMO Codes Diagnosis Note [id number] JERRY ROSENTHAL APRN [facility] [address] [place] [address] 05/01/2025 13:50:32 05/01/2025 14:41:38 Multiple complications due to type 2 diabetes mellitus 631649898 E11.8 A 1c in office today of 6.7%, from 7.2%, 12/26/24. G oal A1C by ADA criteria is less than 7%. Random blood glucose 143. Recommenda tions:Cont inuous glucose monitor downloaded . Reports reviewed and discussed with patient.-C ongratulat ed pt on improvemen t in A1c! Agreed on the following for now: -Continue humulin R U-500. Inject 40u in the AM and 30-35u BEFORE dinner. Take this insulin 20-30min before the meal.-Cont inue Mounjaro 5mg once weekly. - Patient is instructed to [...] ALT 15TSH 1.130MACR positive (59- IMPROVED) Hyperlipidemia 68965822 E78.5 Goal LDL is under 100 mg/dl. Last LDL: 49 on 08/23/24Trig lycerides: 74Continue atorvastat in per PCP/ cardiology .Continue dietary changes as recommende d. Essential hypertension 58831044 I10 Goal B.P is less than 140/90 mmHg.Jose Angel nue current anti-hyper tensive medication s as appropriat e per patient s PCP. Renal diso rder due to type 2 diabetes mellitus 203234423 E11.22 MACR positive (59) on 08/23/24 Continue losartan therapy as ordered. Long-term current use of insulin 609423032 Z79.4 [id number] Health Concerns Section Related Observation LastModified by Organization Detai ls LastModified Time None Recorded Concern Status LastModified by Organization Details LastModified Time None Recorded Payers Encounter Date Sequence Insurance Name Policy Number Policy Lockett Covered Member ID Lockett Member ID Guarantor Name 05/01/2025 2 [place] [employer] [place] [employer] 111 Miquel Allen [id number] Miquel Allen 05/01/2025 1 MEDICARE-[employer] (MEDICARE) Miquel Allen [id number] Miquel Allen Notes Date Note Type Note Provider Name and Address Organization Details Recorded Time 05/01/2025 text/html ROS as noted in the HPI Mr. Allen is a 70-year old male (accompanied by his daughter) patient with a past medical history significant for hypertension, hyperlipidemia, and uncontrolled type 2 diabetes complicated by peripheral diabetic neuropathy, who is seen at the office today for a follow up. At last visit, we switched from ozempic to mounjaro. Patient reports improved compliance and denies any side effects. Hx: Needs another left shoulder surgery 10/27, repair again (rotator cuff still torn, did not heal after last surgery on 11/24/20). UTT pravastatin d/t rash;Med hx: farxiga; metformin; victoza (nausea/vomiting) Current Treatment Regimen:Humulin R U-500 45u acb 30-35u acd Ozempic 2mg--> Mounjaro 5mg/wk No recent episodes of hypoglycemia. Patient is able to recognize and treat appropriately. Diet: 1-2 meals per day- more salads in the evening, cut back on sweets Exercise: no regular exercise- retired-- knee pain- plans to start PT for leg strength Review finger sticks: Dexcom G7Avg. 156SD 37TIR 75%Low 0%Very low 0% Last dilated eye exam: 03/15/25 Dr. Stoll- no DR Associated Symptoms: no weight gain; no dizziness; no sweats; no headaches; no confusion; no increased appetite; no increased urination; no calluses on feet; no SOB; no heart palpitations/racin g heart Reports: dry mouth (stable- worse at night); intermittent blurred vision (stable); numbness/burning/t ingling of feet worsened (stable- on neurontin per PCP), worse in hands; increased thirst (stable); additional 5lb weight loss since last visit; weakness in legs Chronic Complications:Diab etic retinopathy: NoDiabetic neuropathy: YesDiabetic nephropathy: NoHypertension: YesHyperlipidemia: Yes JERRY ROSENTHAL, ARTIST CONSULTANT [address], [place], [address], [facility] 05/01/2025 14:37:16
--- OUTSIDE RECORDS SUMMARY | 2025-06-17 09:12 | XMS_ITS | Data Portability ---
Author Organization [facility] CYNDI Solano BAINBRIDGE CLOSED Address [address] [place] [address] Care Team Providers Care Log Processor Operator Name Role Phone JERRY ROSENTHAL Reed Or Wind Instrument Tuner MIQUEL STOLL Marine Equipment Preservation Inspector MADELINE ALVAREZ II Primary Care Provider Assessment No assessment recorded. Plan of Treatment Reminders Order Date Submit Date Provider Last Modified By Organization Details Last Modified Time Details Appointments DERM VISIT 2025 11:40A M ELIZABETH CERNA DO Not available Not available Not available RECHECK 2025 01:30P Iwona ROSENTHAL AUTOMATED MANUFACTURING INSTRUCTOR Not available Not available Not available LEVEL 2 2025 01:30P Iwona STOLL MD Not available Not available Not available Lab glucose, fingerst ick, blood 2024 025 [email or web address] 8 [facility] , [address] [place] [address], [address], 05/01/2025 14:33:25 hemoglob in A1C, fingerst ick 2024 025 [email or web address] 8 [facility] , [address] [place] [address], [address], 05/01/2025 14:33:25 glucose, fingerst ick, blood 2024 025 [email or web address] 8 [facility] , [address] [place] [address], [address], 12/26/2024 13:59:00 hemoglob in A1C, fingerst ick 2024 025 [email or web address] 8 [facility], [address] [place] [address], [address], 12/26/2024 13:59:01 microalb umin/cre atinine, mass ratio, urine 2024 025 [facility], [address] [place] [address], [address], 08/23/2024 12:12:55 lipid panel, serum 2024 025 [facility], [address] [place] [address], [address], 08/23/2024 12:04:30 glucose, fingerst ick, blood 2024 025 [id number] 8 [facility], [address] [place] [address], [address], 08/23/2024 10:51:17 hemoglob in A1C, fingerst ick 2024 025 [email or web address] 8 [facility], [address] [place] [address], [address], 08/23/2024 10:51:17 CMP, serum or plasma 2024 025 [facility], [address] [place] [address], [address], 08/23/2024 12:04:28 TSH, serum or plasma 2024 025 [facility], [address] [place] [address], [address], 08/23/2024 12:09:29 Referral None recorded . Procedures None recorded . Surgeries None recorded . Imaging None recorded . Medication Orders Humulin R U-500 (Conc) Insulin Kwikpen 500 unit/mL (3 mL) subcutan eous [address] [facility], [address] [place] [address] [place], [id number], 05/09/2025 11:59:09 Mounjaro 5 mg/0.5 mL subcutan eous pen injector [address] [facility], [address] [place] [address] Eligio, ALBER Rao, [id number], 05/27/2025 17:08:00 Humulin R U-500 (Conc) Insulin Kwikpen 500 unit/mL (3 mL) subcutan eous 2024 025 [facility], [address] [place] [address] Eligio, ALBER Rao, [id number], 04/02/2025 15:08:58 Mounjaro 5 mg/0.5 mL subcutan eous pen injector 2024 025 [facility], [address] [place] [address] Eligio, ALBER Rao, [id number], 02/25/2025 14:03:47 Humulin R U-500 (Conc) Insulin Kwikpen 500 unit/mL (3 mL) subcutan eous [address] [facility], [address] [place] [address] Eligio, ALBER Rao, [id number], 08/23/2024 10:53:12 Ozempic 2 mg/dose (8 mg/3 mL) subcutan eous pen injector [address] [place] [address] Pharmacy, [address] [place] [address] S, ALBER Rao, [phone], 08/23/2024 12:15:52 Patient TargetsNo targets recorded. Patient Instructions Encounter Date Encounter Id Patient Instructions Last Modified By Organization Details Last Modified Time 08/23/2024 [id number] [email or web address] Not available 13:19:32 12/26/2024 [id number] Not available 12/2024 13:45:32 03/01/2025 [id number] I have discussed the situation, differential diagnosis, and recommendation with the patient. He express understanding and wishes to proceed as recommended. [email or web address] Not available 03/01/2025 13:49:48 05/01/2025 [id number] [email or web address] Not available 04/2025 08:43:41 Reason for Referral None Reported. Results Created Date Observation Date Name Description Value Unit Range Abnormal Flag Note LastModifiedBy Organization Detail LastModifiedTime 08/24/1908/23/2024 COMP. METAB OLIC PANEL glucose 179 mg/dL 74-100 high Not Available [facility] [address] [place] [address], [phone], 08/23/2024 12:04:28 08/24/19 25 08/23/2024 COMP. METAB OLIC PANEL blood urea nitrogen 26 mg/dL 6-20 high Not Available [facility] [address] [place] [address], [address], 08/23/2024 12:04:28 08/24/19 25 08/23/2024 COMP. METAB OLIC PANEL creatinine 1.04 mg/dL 0.70-1 .28 normal Not Available [facility] [address] [place] [address], [address], 08/23/2024 12:04:28 08/24/19 25 08/23/2024 COMP. METAB OLIC PANEL BUN/creatini ne ratio 25 (calc ) 10-20 high Not Available [facility] [address] [place] [address], [address], 08/23/2024 12:04:28 08/24/19 25 08/23/2024 COMP. METAB OLIC PANEL sodium 142 mmol/ L 136-14 5 normal Not Available [facility] [address] [place] [address], [address], 08/23/2024 12:04:28 08/24/19 25 08/23/2024 COMP. METAB OLIC PANEL potassium 4.4 mmol/ L 3.4-5. 0 normal Not Available [facility] [address] [place] [address], [address], 08/23/2024 12:04:28 08/24/19 25 08/23/2024 COMP. METAB OLIC PANEL chloride 103 mmol/ L 98-107 normal Not Available [facility] [address] [place] [address], [address], 08/23/2024 12:04:28 08/24/19 25 08/23/2024 COMP. METAB OLIC PANEL carbon dioxide 25 mmol/ L 22-31 normal Not Available [facility] [address] [place] [address], [address], 08/23/2024 12:04:28 08/24/19 25 08/23/2024 COMP. METAB OLIC PANEL anion gap 14 (calc ) 7-25 normal Not Available [facility] [address] [place] [address], [address], 08/23/2024 12:04:28 08/24/19 25 08/23/2024 COMP. METAB OLIC PANEL calcium 9.3 mg/dL 8.6-10 .2 normal Not Available [facility] [address] [place] [address], [address], 08/23/2024 12:04:28 08/24/19 25 08/23/2024 COMP. METAB OLIC PANEL total protein 7.1 g/dL 6.4-8. 3 normal Not Available [facility] [address] [place] [address], [address], 08/23/2024 12:04:28 08/24/19 25 08/23/2024 COMP. METAB OLIC PANEL albumin 4.2 g/dL 3.5-5. 2 normal Not Available [facility] [address] [place] [address], [address], 08/23/2024 12:04:28 08/24/19 25 08/23/2024 COMP. METAB OLIC PANEL globulin 2.9 1.5-4. 5 normal Not Available [facility] [address] [place] [address], [address], 08/23/2024 12:04:28 08/24/19 25 08/23/2024 COMP. METAB OLIC PANEL albumin/glob ulin ratio 1.4 (calc ) 1.1-2. 5 normal Not Available [facility] [address] [place] [address], [address], 08/23/2024 12:04:28 08/24/19 25 08/23/2024 COMP. METAB OLIC PANEL bilirubin, total 0.6 mg/dL 0.1-1. 2 normal Not Available [facility] [address] [place] [address], [address], 08/23/2024 12:04:28 08/24/19 25 08/23/2024 COMP. METAB OLIC PANEL alkaline phosphatase 98 U/L 40-129 normal Not Available [facility] [address] [place] [address], [address], 08/23/2024 12:04:28 08/24/19 25 08/23/2024 COMP. METAB OLIC PANEL AST 14 U/L 0-40 normal Not Available [facility] [address] [place] [address], [address], 08/23/2024 12:04:28 08/24/19 25 08/23/2024 COMP. METAB OLIC PANEL ALT 15 U/L 0-41 normal Not Available [facility] [address] [place] [address], [address], 08/23/2024 12:04:28 08/24/19 25 08/23/2024 COMP. METAB OLIC PANEL GFR 77 >= 60 normal NOT E New calcu latio n for GFR (CKD- EPI 2020) is formu lated witho ut race adjus tment facto rs at the recom menda tion of the [employer] [employer] at[employer] and Amraf Haynese ty of Nephr ology . This calcu latio n has not been valid ated in pregn ant women . For pedia tric patie nts refer to https ://hugo w.enedina hollyy.o rg/pr ofess ional s/KDO QI/gf r_cal culat orPed Not Available [facility] [address] [place] [address], [address], 08/23/2024 12:04:28 08/24/19 25 08/23/2024 LIPID PROFI LE HDL cholesterol 48 mg/dL 40-242 normal Not Available [facility] [address] [place] [address], [address], 08/23/2024 12:04:30 08/24/1908/23/2024 LIPID PROFI LE triglyceride s 74 mg/dL 0-149 normal TRIGL YCERI DE RANGE S RUBEN L: < 150 BORDE RLINE HIGH: 150 - 199 HIGH: 200 - 499 VERY HIGH: > OR = 500 Not Available [facility] [address] [place] [address], [address], 08/23/2024 12:04:30 08/24/19 25 08/23/2024 LIPID PROFI LE cholesterol 112 mg/dL 0-199 normal GUIDO STERO L (TOTA L) RANGE S MARISEL ABLE: < 200 BORDE RLINE : 200 - 239 HIGHE R RISK: > 239 Not Available [facility] [address] [place] [address], [address], 08/23/2024 12:04:30 08/24/19 25 08/23/2024 LIPID PROFI LE LDL cholesterol 49 mg/dL _(ara c) 0-99 normal LDL GUIDO STERO L RANGE S OPTIM AL: < 100 NEAR/ ABOVE OPTIM AL: 100 - 129 BORDE RLINE HIGH: 130 - 159 HIGH: 160 - 189 VERY HIGH: > OR = 190 Not Available [facility] [address] [place] [address], [address], 08/23/2024 12:04:30 08/24/19 25 08/23/2024 TSH TSH 1.130 u[IU] /mL 0.270- 4.200 normal Not Available [facility] [address] [place] [address], [address], 08/23/2024 12:09:29 08/24/19 25 08/23/2024 MICRO ALBUM IN/CR EAT RATIO microalbumin , random 98 mg/L 0-19 high Not Available [facility] [address] [place] [address], [address], 08/23/2024 12:12:55 08/24/19 25 08/23/2024 MICRO ALBUM IN/CR EAT RATIO creatinine,u r,random 167 mg/dL normal NO RUBEN L RANGE ESTAB LISHE D FOR RANDO M URINE . Not Available [facility] [address] [place] [address], [address], 08/23/2024 12:12:55 08/24/19 25 08/23/2024 MICRO ALBUM IN/CR EAT RATIO MA/creatinin e ratio 59 mcg/m g_cre at 0-29 high Not Available [facility] [address] [place] [address], [address], 08/23/2024 12:12:55 08/24/19 25 08/23/2024 hemog lobin A1C, finge rstic k hemoglobin A1C % 6.8 % 4.0 - 5.6 Not Available [facility] [address] [place] [address], [address], 08/10/2024 13:19:34 08/24/19 25 08/23/2024 gluco se, finge rstic k, blood glucose, fingerstick 199 mg/dL 70 - 100 Not Available [facility] [address], [address], 08/10/2024 13:19:34 12/27/19 25 12/26/2024 hemog lobin A1C, finge rstic k hemoglobin A1C % 7.2 4.0 - 5.6 Not Available [facility] [address], [address], 12/24/2024 13:45:34 12/27/19 25 12/26/2024 gluco se, finge rstic k, blood glucose, fingerstick 139 mg/dL 70 - 100 Not Available [facility] [address], [address], 12/24/2024 13:45:34 05/01/20 25 05/01/2025 gluco se, finge rstic k, blood glucose, fingerstick 143 mg/dL 70 - 100 Not Available [facility] [address], [address], 04/30/2025 08:43:43 05/01/20 25 05/01/2025 hemog lobin A1C, finge rstic k hemoglobin A1C % 6.7 4.0 - 5.6 Not Available [facility] [address], [address], 04/30/2025 08:43:43 Result Notes None recorded. 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 777375635 Active 2015 From [employer];Pro vider: Magdalena Fuentes;Sta tus: Active Not Available [facility] 7 06:21:34 Pain in right foot 52390578497 9107 Active 2015 From [employer];Pro vider: Magdalena Fuentes;Sta tus: Active Not Available [facility] 7 06:45:00 Congenit al talipes calcaneo valgus 366320618 Active 2015 From [employer];Pro vider: Magdalena Fuentes;Sta tus: Active Not Available [facility] 7 07:05:37 Tracheob ronchiti s 85479113 Completed 201501/03/2017 From [employer];Pro vider: Celia Monge;St atus: Active MIQUEL HERRMANN MD [address] [place] [address], [address] , [facility] 7 13:46:47 Senile hyperker atosis 887239434 Active 2015 From [employer];Pro vider: Marilin Gonsales;St atus: Active Not Available [facility] 7 06:00:03 Neoplast ic disease Completed 201501/03/2017 From [employer];Pro vider: Marilin Gonsales;St atus: Active MIQUEL HERRMANN MD [address] [place] [address], [address] , [facility] 7 13:46:51 Pain in left foot 23940736654 9107 Completed 201501/03/2017 From [employer];Pro vider: Magdalena Fuentes;Sta tus: Active MIQUEL HERRMANN MD [address] [place] [address], [address] , [facility] 7 13:46:55 Disorder of capillar ies 61411375 Active 2015 From [employer];Pro vider: Marilin Gonsales;St atus: Active Not Available [facility] 7 07:51:38 Hyperten sive disorder 15396922 Active 2017 MIQUEL HERRMANN MD [address] [place] [address], [address] , [facility] 2 07:59:22 Hyperlip idemia 42782984 Active 2017 MIQUEL HERRMANN MD [address] [place] [address], [address] , [facility] 2 07:59:22 Chronic depressi on 973777230 Active 2017 MIQUEL HERRMANN MD [address] [place] [address], [address] , [facility] 2 07:59:22 Chronic obstruct an pulmonar y disease 43304080 Active 2017 MIQUEL HERRMANN MD [address] [place] [address], [address] , [facility] 2 07:59:22 Diabetic peripher al neuropat hy 808193483 Active 2017 MIQUEL HERRMANN MD [address] [place] [address], [address] , [facility] 2 07:59:22 Venous insuffic iency of lower limb 309622290 Active 2020 MIQUEL HERRMANN MD [address] [place] [address], [address] , [facility] 1 16:20:44 Multiple complica tions due to type 2 diabetes mellitus Active 2021 JERRY ROSENTHAL APRN [address] [place] [address], [address] , [facility] 2 12:26:29 Lower urinary tract symptoms due to benign prostati c hypertro phy 22841132387 101 Active 2021 MIQUEL HERRMANN MD [address] [place] [address], [address] , [facility] 2 08:02:53 Chronic low back pain 210746527 Active 2021 MIQUEL HERRMANN MD [address] [place] [address], [address] , [facility] 2 08:02:53 Body mass index 40+ - severely obese 384496541 Active 2021 MIQUEL HERRMANN MD [address] [place] [address], [address] , [facility] 2 08:02:[address] segment elevatio n myocardi al infarcti on 26025143781 9104 Active 2021 MIQUEL HERRMANN MD [address] [place] [address], [address] , [facility] 2 07:52:05 Morbid obesity 066270028 Active 2022 MIQUEL HERRMANN MD [address] [place] [address], [address] , [facility] 3 15:15:21 Recurren t major depressi on 92397748 Active 2022 MIQUEL HERRMANN MD [address] [place] [address], [address] , [facility] 3 15:23:59 Renal disorder due to type 2 diabetes mellitus 623114067 Active 2024 JERRY ROSENTHAL APRN [address] [place], [address] , [facility] 5 13:45:35 Essentia l hyperten florinda 66491488 Active 2024 JERRY ROSENTHAL APRN [address] [place], [address] , [facility] 5 13:45:35 Pile easily reducibl e 762227543 Active 2024 EVITA DIAMOND MD [facility] [place], [address] , [facility] 5 13:49:04 Problem Notes None recorded. Procedures Surgical History Date Name Laterality Status Provider Name and Address Organization Details Recorded Time Diabetic Foot Exam completed JERRY ROSENTHAL, AUTOMATED MANUFACTURING INSTRUCTOR [address] [place], [address], [facility] 04/30/2025 08:43:41 025 Diabetic Foot Exam completed JERRY ROSENTHAL, AUTOMATED MANUFACTURING INSTRUCTOR [address] [place], [address], [facility] 12/24/2024 13:45:31 025 Diabetic Foot Exam completed JERRY ROSENTHAL, AUTOMATED MANUFACTURING INSTRUCTOR [address] [place], [address], [facility] 08/23/2024 12:17:37 024 Laryngoscopy Flex completed Fred Fletcher [facility] 06/18/2024 15:35:17 024 Destruction BN Lesions completed ELIZABETH CERNA DO [address] [place], [address], [facility] 03/08/2024 17:02:10 022 TCM completed [facility] 06/03/2022 07:19:18 022 OCT/Retina completed MIQUEL STOLL MD [address] [place] [address] [place], [address], [facility] 06/07/2022 16:04:02 022 catheterization of left heart completed [facility] 06/03/2022 07:29:27 022 Destruction BN Lesions completed Damaris Johnson [facility] 08/05/2021 14:43:50 022 Cystoscopy - male completed KARUNA ALDRIDGE MD [address] [place] [address] [place], [address], [facility] 07/13/2021 13:19:21 021 Post Void Residual; Ultrasound completed Katina Camejo [facility] 05/19/2021 15:49:13 021 OCT/Retina completed MIQUEL STOLL MD [address] [place] [address], [address], [facility] 03/06/2021 12:14:35 021 repair of shoulder completed Monica [facility] 02/09/2021 14:40:09 021 Bubbles Echocardiogram completed ISAAK CASTRO MD [address] [place], [address], [facility] 07/21/2020 15:43:23 021 Diffusion Capacity completed SILVESTRE MCLAIN PA-C [address] [place], [address], [facility] 07/10/2020 15:30:41 021 Lung Volumes, Plethysmography completed SILVESTRE MCLAIN PA-C [address] [place], [address], [facility] 07/10/2020 15:31:01 021 Spirometry completed SILVESTRE MCLAIN PA-C [address] [place], [address], [facility] 07/10/2020 15:31:15 020 Biopsy Skin Lesion; Punch completed [facility] 08/20/2019 12:12:34 020 Destruction BN Lesions completed [facility] 08/20/2019 12:12:09 019 Digital Rectal Screening Exam completed MIQUEL HERRMANN MD [address] [place], [address], [facility] 07/13/2018 16:22:10 018 Digital Rectal Screening Exam completed MIQUEL HERRMANN MD [facility] [place], [address], [facility] 07/11/2017 16:34:07 017 MNT Initial Visit completed AUGUSTINE [address] [place], [address], [facility] 01/20/2017 14:21:14 017 Audiogram completed JACLYN WHARTON [address] [place], [address], [facility] 06/30/2016 14:57:39 011 Cervical Spine Surgery completed Brea Leos [facility] 06/08/2016 14:35:47 Cataract Surgery completed Melissa holly giuseppe [facility] 06/08/2016 14:35:11 Knee Surgery completed Brea Leos [facility] 06/08/2016 14:37:21 Imaging Results None recorded. Procedure Notes None recorded. Medical Equipment None Reported. Allergies Allergen ID Allergen Name Allergen Category Reaction Reaction Severity Criticality Documentation Date Start Date Code Code System Note Provider Name and Address Organization Details Recorded Time 108147 Non-stero idal anti-infl ammatory agent (substanc e) medicatio n Not available Not available Not available 09/16/2016 55359 5008 SNOMED Verito Jack [facility] 7 10:06:11 049405 Substance with sulfonami de structure and antibacte rial mechanism of action (substanc e) medicatio n Not available Not available Not available 09/16/2016 23825 8003 SNOMED Verito Marcialer [facility] 7 10:06:23 669070 aspirin medicatio n Not available Not available Not available 09/16/2016 1191 RxNorm Jocelyn Rahul [facility] 2 14:56:06 284770 pravastat in medicatio n rash Not available Not available 08/18/2022 27944 RxNorm JERRY ROSENTHAL, AUTOMATED MANUFACTURING INSTRUCTOR [address] [place], [address], [facility] 3 16:14:52 610735 lisinopri l medicatio n cough Not available Not available 12/08/2023 69489 RxNorm JERRY ROSENTHAL, AUTOMATED MANUFACTURING INSTRUCTOR [address] [place], [address], [facility] 4 10:43:26 Medications Name Sig Start [...] Available Not Available Nasonex 50 mcg/actua tion [place] 2 sprays every day by intranas al [...] Needle 31 gauge x 5/16 USE DIRECTED 2 TIMES A DAY WITH [...] Updated DateTime 08/23/2024 175.26 cm 49.9 kg/m2 014364.22 g 114/80 mm[Hg] Tosin Jordanette [facility] 08/23/2024 10:32:47 Date Recorded Body height Body mass index (BMI) Body weight Heart rate Systolic And Diastolic Provider Name and Address Organization Details Last Updated DateTime 12/26/2024 175.26 cm 48.6 kg/m2 486708.8 9 g 91 /min 125/85 mm[Hg] Janny Rios [facility] 12/26/2024 13:37:24 Date Recorded Body height Body mass index (BMI) Body weight Heart rate Respiratory rate Systolic And Diastolic Provider Name and Address Organization Details Last Updated DateTime 175.26 cm 47.8 kg/m2 416797. 93 g 87 /min 16 /min 129/73 mm[Hg] Yola De La Rosa [facility] 13:33:53 Date Recorded Body height Provider Name an d Address Organization Details Last Updated DateTime 03/15/2025 175.26 cm Gabriella Morris [facility] 0 03/15/2025 11:20:01 Date Recorded Body height Body mass index (BMI) Body weight Heart rate Systolic And Diastolic Provider Name and Address Organization Details Last Updated DateTime 05/01/2025 175.26 cm 47.8 kg/m2 730161.9 3 g 77 /min 116/78 mm[Hg] Carolyn Arenas [facility] 05/01/2025 14:15:06 Social History Question Answer Notes LastModified by Organizat ion Details LastModified Time Tobacco Smoking Status Former Smoker QUIT 2005 Brea Leos [facility] 06/08/2016 14:34:38 Do You Have An Advance Directive? No [email or web address] Information not available 06/07/2019 What Is Your Level Of Caffeine Consumption? Moderate Information not available 07/08/2017 How Much Tobacco Do You Chew? None Information not available 07/13/2018 What Type Of Diet Are You Following? REGULAR [email or web address] Information not available 06/07/2019 Which Illicit Or Recreational Drugs Have You Used? No [email or web address] Information not available 06/07/2019 Education 2 Year College Information not available 07/08/2017 When Did You Quit Smoking? 16+yearssinc elastcigaret te Information not available 10/28/2022 Live Alone Or With Others? With Others Information not available 07/08/2017 Marital Status navya Gonsales n not available 06/08/2016 What Was The Date Of Your Most Recent Tobacco Screening? 11/08/2022 Information not available 11/08/2022 What Is Your Relationship Status? [email or web address] Information not available 05/19/2021 Seat Belts Used [...] not available 07/08/2017 What is your occupation[place] [employer] [place] [employer] Information not available 07/11/2017 Do you or [...] Heart Disease Y Bronchitis Y Heart Attack ([place]) Y Headaches Y Hypertension Y Osteoporosis Y Glasses/Contacts Y Immunizations Vaccine Type Date Status Note Provider Nam e and Address Organization Details Recorded Time zoster live 5 completed Not Available [facility] 05/01/2025 13:51:50 pneumococcal polysaccharide PPV23 1 completed Not [facility] 05[facility]01[facility]25 13:51:50 COVID-19, mRNA, LNP-S, PF, 100 mcg/0.5mL dose or 50 mcg/0.25mL dose 1 completed Not Available [facility] 05/01/2025 13:51:50 Influenza, recombinant, quadrivalent, PF 3 completed Not Available [facility] 05/01/2025 13:51:50 COVID-19, mRNA, LNP-S, PF, 50 mcg/0.5 mL 3 completed Not Available [facility] 05/01/2025 13:51:50 COVID-19, mRNA, LNP-S, PF, mira-sucrose, 30 mcg/0.3 mL 4 completed Not Available [facility] 05/01/2025 13:51:50 Influenza, high-dose, trivalent, PF 4 completed Not Available [facility] 05/01/2025 13:51:50 COVID-19, mRNA, LNP-S, PF, 10 mcg/0.2 mL 5 completed Not Available [facility] 05/01/2025 13:51:50 Influenza, high-dose, trivalent, PF 5 completed Not Available [facility] 05/01/2025 13:51:50 Influenza, high-dose, trivalent, PF 9 completed Not Available [facility] 07/07/2019 02:48:55 Pneumococcal conjugate PCV 13 0 completed Not Available [facility] 07/07/2019 02:48:26 Influenza, high-dose, quadrivalent, PF 0 [facility] 15:59:45 Influenza, high-dose, quadrivalent, PF 2 completed [facility] 07/28/2021 12:03:00 pneumococcal polysaccharide PPV23 2 completed MIQUEL HERRMANN MD [address] [place] [address], [phone], [facility] 08/18/2021 11:04:59 Influenza, split virus, quadrivalent, preservative 7 completed MIQUEL HERRMANN MD [address] [place] [address], [phone], [facility] 11/08/2022 15:20:57 pneumococcal polysaccharide PPV23 3 [facility] 09/15/2016 08:08:52 Tdap 9 completed MIQUEL HERRMANN MD [address] [place] [address], [address] [place] [address], [facility] 11/08/2022 15:20:58 influenza nasal, unspecified formulation 2 completed MIQUEL HERRMANN MD [address] [place] [address], [address] [place] [address], [facility] 11/08/2022 15:20:58 zoster recombinant 9 completed MIQUEL HERRMANN MD [address] [place] [address], [address] [place] [address], [facility] 11/08/2022 15:20:57 zoster recombinant 9 completed MIQUEL HERRMANN MD [address] [place] [address], [address] [place] [address], [facility] 11/08/2022 15:20:57 Influenza, high-dose, quadrivalent, PF 0 completed MIQUEL HERRMANN MD [address] [place] [address], [address] [place] [address], [facility] 11/08/2022 15:20:57 Influenza, high-dose, quadrivalent, PF 1 completed MIQUEL HERRMANN MD [address] [place] [address], [address] [place] [address], [facility] 11/08/2022 15:20:57 COVID-19, mRNA, LNP-S, PF, 100 mcg/0.5mL dose or 50 mcg/0.25mL dose 1 completed MIQUEL HERRMANN MD [address] [place] [address], [address] [place] [address], [facility] 11/08/2022 15:20:57 COVID-19, mRNA, LNP-S, PF, 100 mcg/0.5mL dose or 50 mcg/0.25mL dose 2 completed MIQUEL HERRMANN MD [address] [place] [address], [phone], [facility] 11/08/2022 15:20:57 COVID-19, mRNA, LNP-S, PF, 100 mcg/0.5mL dose or 50 mcg/0.25mL dose 1 completed MIQUEL HERRMANN MD [address] [place] [address], [phone], [facility] 11/08/2022 15:20:58 COVID-19, mRNA, LNP-S, bivalent, PF, 50 mcg/0.5 mL or 25mcg/0.25 mL dose 2 completed MIQUEL HERRMANN MD [address] [place] [address], [phone], [facility] 11/08/2022 15:20:58 Hep A, adult 0 completed MIQUEL HERRMANN MD [address] [place] [address], [phone], [facility] 11/08/2022 15:20:58 Hep A, adult 9 completed MIQUEL HERRMANN MD [address] [place] [address], [address], [facility] 11/08/2022 15:20:58 Influenza, split virus, quadrivalent, PF 6 completed MIQUEL HERRMANN MD [address] [place] [address], [phone], [facility] 11/08/2022 15:20:58 Past Encounters Encounter ID Performer Location Encounter Start Date Encounter Closed Date Diagnosis/Indication Diagnosis SNOMED-CT Code Diagnosis ICD10 Code Diagnosis IMO Codes Diagnosis Note [id number] [facility]AC[facility]N [facility]ON [facility] [address] [place] [address] 06/30/2016 14:02:35 06/30/2016 15:00:50 Sensorineural hearing loss of bilateral ears 002830877 H90.3 Bilateral tinnitus 01852 43780 102 H93.13 [id number] MIQUEL HERRMANN MD [facility] [address] [place] [address] 09/16/2016 09:51:54 09/16/2016 13:47:26 Acute exacerbation of asthma 863195127 J45.901 Patient has failed outpatient therapy as he is on Zithromax, prednisone and frequent neb treatments with continued diffuse wheezing. I have called [facility] emergency room and patient will be seen there right away for further evaluation and probable admission to hospital. [id number] MIQUEL HERRMANN MD [facility] [address] [place] [address] 09/22/2016 07:41:54 09/22/2016 08:33:11 Acute bronchitis 58478846 J20.9 Finish course of Zithromax Chronic ob structive pulmonary disease 59649492 J44.9 Finish course of prednisone . Continue duo nebs as directed. Patient is slowly improving. He will call and return if he doesn't continue to improve or if he should worsen. [id number] JERRY ROSENTHAL APRN ENDOCRINO [facility] [address] [place] [address] 11/04/2016 09:35:01 11/04/2016 11:11:18 Uncontrolled type 2 diabetes mellitus 374105008 E11.65 Diabetes mellitus Type 2, uncontroll ed. [...] ne 1.0GFR 76TSH 0.883AST 35ALT 36 Hyperlipidemia 67677963 E78.5 Goal LDL is under 100 mg/dl. Last LDL: 111 on 05/03/16Tr iglyceride s: 301 Upon further questionin g, patient states that he has not been taking pravastati n.Encour ed patient to restart pravastati n therapy.Co ntinue dietary changes as recommendry d. Essential hypertension 34468224 I10 Goal B.P is less than 140/90 mmHg. Continue current anti-hyper tensive medication s as appropriat e per patient s PCP. [id number] JERRY ROSENTHAL APRN END[facility] [address] [place] [address] 12/22/2016 14:58:29 12/23/2016 09:38:55 Uncontrolled type 2 diabetes mellitus 113244352 E11.65 Diabetes mellitus Type 2, uncontroll ed. [...] SGLT-2, potential side effects discussed, insurance prefers [facility]. May reconsider GLP-1 if cholestero l improves [...] ne 1.0GFR 76TSH 0.883AST 35ALT 36 Hyperlipidemia 16939363 E78.5 Goal LDL is under 100 mg/dl. Last LDL: 111 on 05/03/16Tr iglyceride s: 301 Discussed statin therapy with patient. His ASCVD risk is 27.8% and he should be on a high-inten sity statin. However, he does have a history of slightly elevated LFTs. Will restart low-dose statin for now.Contin ue dietary changes as recommende d. Essential hypertension 00340183 I10 Goal B.P is less than 140/90 mmHg. Continue current anti-hyper tensive medication s as appropriat e per patient s PCP. Morbid obesity 040619533 E66.01 -Dietary recommenda tions as above. -Exercise [...] procedure and to optimize diet and exercise. [id number] MIQUEL HERRMANN MD [facility] [address] [place] [address] 01/03/2017 13:15:13 01/03/2017 14:08:06 Hypertensive disorder 30402757 I10 Hyperlipidemia 92928603 E78.5 Chronic depression 28532 0009 F34.1 Chronic ob structive pulmonary disease 76902289 J44.9 Diabetic p eripheral neuropathy 678633020 E11.40 Patient has signed CSA and SILVINO is appropriat e. [id number] [address] [facility] [address] [address] 01/20/2017 13:25:42 01/20/2017 14:22:17 Diabetes mellitus 66439070 E11.65 [id number] JERRY ROSENTHAL APRN END[facility] [address] [address] 02/07/2017 08:28:32 02/07/2017 15:58:46 Uncontrolled type 2 diabetes mellitus 651550485 E11.65 Diabetes mellitus Type 2, uncontroll ed. [...] ne 1.0GFR 76TSH 0.883AST 35ALT 36 Hyperlipidemia 31652426 E78.5 Goal LDL is under 100 mg/dl. Last LDL: 111 on 05/03/16Tr iglyceride s: 301 Continue pravastati n as prescribed .Continue dietary changes as recommende d. Essential hypertension 81692630 I10 Goal B.P is less than 140/90 mmHg. Continue current anti-hyper tensive medication s as appropriat e per patient s PCP. Morbid obesity 229754537 E66.01 -4lb weight loss since last visit.- tary recommenda tions as above. -Exercise recommenda tions as above. [id number] JERRY ROSENTHAL APRN END[facility] [address] [place] [address] 05/20/2017 13:22:23 05/20/2017 14:04:52 Uncontrolled type 2 diabetes mellitus 147911176 E11.65 Diabetes mellitus Type 2, uncontroll ed. [...] ne 1.0GFR 76TSH 0.883AST 35ALT 36 Hyperlipidemia 72633831 E78.5 Goal LDL is under 100 mg/dl. Last LDL: 111 on 05/03/16Tr iglyceride s: 301 Continue pravastati n as prescribed .Continue dietary changes as recommende d. Essential hypertension 42098836 I10 Goal B.P is less than 140/90 mmHg. Continue current anti-hyper tensive medication s as appropriat e per patient s PCP. Morbid obesity 160381553 E66.01 -Weight gain since last visit. Patient asked about addipex. I advised him that I do not recommend that given his history of hypertensi on, [place], and he is currently taking cymbalta.- Dietary recommenda tions as above. Stategies to avoid temptation s discussed. -Exercise recommenda tions as above. Renal diso rder due to type 2 diabetes mellitus 911847099 E11.22 MACR positive (40) on 02/07/17.Co ntinue losartan therapy.Wi ll recheck at next visit. [id number] LAKESHA MONTOYA-C [facility] [address] [place] [address] 05/20/2017 14:19:09 05/20/2017 16:09:56 Lesion of penis 414451363 N48.9 white hard tender lesion overlying penile skin on the right side of the distal penis. no ulceration or bleeding. i would like to refer to urology to evaluate this new penile lesion. 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 Body mass index 40+ - severely obese 859280106 Z68.42 Continue weight loss efforts. Screening for malignant neoplasm of colon 780571929 Z12.11 [id number] JERRY ROSENTHAL APRN [facility] [address] [place] [address] 09/02/2017 14:05:45 09/02/2017 15:17:19 Uncontrolled type 2 diabetes mellitus 399477694 E11.65 Diabetes mellitus Type 2, uncontroll ed. [...] 89AST 24ALT 26MACR positive (40) 02/07/17 Hyperlipidemia 11600806 E78.5 Goal LDL is under 100 mg/dl. Last LDL: 102 on 07/11/17Tri glycerides : 202 Continue pravastati n as prescribed .Continue dietary changes as recommende d. Essential hypertension 40238303 I10 Goal B.P is less than 140/90 mmHg. Continue current anti-hyper tensive medication s as appropriat e per patient s PCP. Morbid obesity 905138026 E66.01 -Dietary recommenda tions as above. -Will start Victoza as above for blood glucose and cardiovasc ular protection . It may assist with weight loss efforts. -Exercise recommenda tions as above. Renal diso rder due to type 2 diabetes mellitus 831295419 E11.22 MACR positive (40) on 02/07/17.Co ntinue losartan therapy as ordered. [id number] [facility] [address] [place] [address] 10/17/2017 12:51:54 10/17/2017 13:26:05 Chronic depression 327286187 F34.1 feels cymbalta is not effective any longer. patient will go ahead and stop Cymbalta and start fluoxetine as directed instead. Recheck in 1 month. This may need to be increased. [id number] ISAAK FLOWERS MD OPHTHALMO LOGY [address] ,[address]LO[address] [place] [address] 10/25/2017 14:33:49 10/26/2017 08:48:25 Type 1 diabetes mellitus 75532215 E10.9 Bilateral pseudophakia 2412687317 0909282 Z96.1 Myopia 76973618 H52.13 Presbyopia 30511566 H52. 4 [id number] MIQUEL HERRMANN MD [facility] [address] [place] [address] 12/28/2017 10:05:54 12/28/2017 10:41:40 Hypertensive disorder 69099766 I10 Hyperlipidemia 94525551 E78.5 Chronic depression 77868 0009 F34.1 Chronic ob structive pulmonary disease 24627818 J44.9 Diabetic p eripheral neuropathy 004794098 E11.40 Patient has signed CSA and SILVINO is appropriat e. Body mass index 40+ - severely obese 449814745 Z68.42 Continue weight loss efforts. [id number] JERRY ROSENTHAL APRN END[facility]CR[facility] [address] [place] [address] 01/10/2018 09:41:56 01/10/2018 12:47:12 Uncontrolled type 2 diabetes mellitus 728577179 E11.65 Diabetes mellitus Type 2, uncontroll ed. [...] 89AST 24ALT 26MACR positive (40) 02/07/17 Hyperlipidemia 19347259 E78.5 Goal LDL is under 100 mg/dl. Last LDL: 102 on 07/11/17Tri glycerides : 202 Continue pravastati n as prescribed .Continue dietary changes as recommende d. Essential hypertension 34814456 I10 Goal B.P is less than 140/90 mmHg. Continue current anti-hyper tensive medication s as appropriat e per patient s PCP. Renal diso rder due to type 2 diabetes mellitus 793481960 E11.22 MACR positive (40) on 02/07/17.Co ntinue losartan therapy as ordered.Re peat MACR today. [id number] LITZY HERNANDEZ PA-C [address] [place] [address] 05/04/2018 10:54:04 05/04/2018 13:04:21 Nausea 688966976 R11.0 Contusion of rib 1795897 06 S20.20XS Lower resp iratory tract infection 22943647 J22 [id number] MIQUEL HERRMANN MD FAM[facility] [address] [place] [address] 06/01/2018 14:30:56 06/01/2018 15:59:36 Viral gastroenteritis 179431504 A08.4 This has resolved but he still has some fatigue. Upper resp iratory infection 79860629 J06.9 His symptoms are consistent with a [...] is taking currently. Osteoarthr itis of knee 742342738 M17.[address] Esme newton [id number] JERRY ROSENTHAL APRN [facility] [address] [place] [address] 07/06/2018 10:18:23 07/06/2018 16:03:40 Uncontrolled type 2 diabetes mellitus 618089419 E11.65 Diabetes mellitus Type 2, uncontroll ed. [...] 89AST 24ALT 26MACR positive (119) 01/10/18 Hyperlipidemia 99842712 E78.5 Goal LDL is under 100 mg/dl. Last LDL: 102 on 07/11/17Tri glycerides : 202 Continue pravastati n as prescribed .Continue dietary changes as recommende d. Essential hypertension 20070092 I10 Goal B.P is less than 140/90 mmHg. Continue current anti-hyper tensive medication s as appropriat e per patient s PCP. Renal diso rder due to type 2 diabetes mellitus 821308466 E11.22 MACR positive (119) on 01/10/18.Co ntinue losartan therapy as ordered. Body mass index 40+ - severely obese 052136328 Z68.42 Dietary recommenda tions as above. Exercise recommenda tions as above. [id number] MIQUEL HERRMANN MD [facility] [address] [place] [address] 07/13/2018 12:23:23 07/13/2018 14:09:48 Adult health examination 995407662 Z00.00 Screening for malignant neoplasm of prostate 679122815 Z12.5 Hypertensive disorder 38 388094 I10 Hyperlipidemia 63538109 E78.5 Chronic depression 97934 0009 F34.1 Depression is uncontroll ed. Increase Prozac to 60 mg daily. If not improving in one month or worsening, he will let me know. Chronic ob structive pulmonary disease 03435903 J44.9 Diabetic p eripheral neuropathy 127099871 E11.40 Patient has signed CSA and SILVINO is appropriat e.Patient doesn't need gabapentin today. Body mass index 40+ - severely obese 068961578 Z68.42 Continue weight loss efforts. Screening for malignant neoplasm of colon 992811453 Z12.11 Arrange referral to GI for colonoscop y Candidal balanitis 36104 007 B37.42 Diflucan as directed. If not improving, he will let me know we can arrange referral to urology dermatolog y. [id number] JERRY ROSENTHAL APRN ENDOCRINO [facility]Y [address] [place] [address] 12/29/2018 10:22:43 12/29/2018 11:09:20 Uncontrolled type 2 diabetes mellitus 569069159 E11.65 Diabetes mellitus Type 2, uncontroll ed. [...] 91AST 20ALT 21MACR positive (119) 01/10/18 Hyperlipidemia 68068558 E78.5 Goal LDL is under 100 mg/dl. Last LDL: 105 on 07/13/18Tri glycerides : 284 Continue pravastati n as prescribed per PCP.Contin ue dietary changes as recommende d. Essential hypertension 09970657 I10 Goal B.P is less than 140/90 mmHg. Continue current anti-hyper tensive medication s as appropriat e per patient s PCP. Renal diso rder due to type 2 diabetes mellitus 039056583 E11.22 MACR positive (119) on 01/10/18.Co ntinue losartan therapy as ordered. Candidiasis of skin 4988 3006 B37.2 -Start diflucan as below. [id number] MIQUEL HERRMANN MD [facility] [address] [place] [address] 01/19/2019 15:07:43 01/19/2019 15:42:54 Hypertensive disorder 89650481 I10 Hypertensi on is controlled . Hyperlipidemia 27684364 E78.5 Chronic depression 86895 0009 F34.1 Chronic ob structive pulmonary disease 81218311 J44.9 Diabetic p eripheral neuropathy 198898845 E11.40 Patient has signed CSA and SILVINO is appropriat e Body mass index 40+ - severely obese 541678659 Z68.42 Continue weight loss efforts. [id number] MIQUEL HERRMANN MD [facility] [address] [place] [address] 05/09/2019 10:26:05 05/09/2019 11:25:59 Strain of neck muscle 113281047 S16.1XXA Medrol Dosepak as directed since he can't take anti-infla mmatories. He can't tolerate steroids okay. Arrange physical therapy. Screening for malignant neoplasm of colon 047110278 Z12.11 Insomnia 209665774 G47.0 0 Discontinu e Benadryl begin trazodone as directed. Side effects discussed with patient Chronic ob structive pulmonary disease 11648586 J44.9 Steroid pack should help his residual COPD exacerbati on and if not he will let me know. Normal grief reaction 27 9742154 F43.20 I expressed my condolence s to Mr. Allen and his daughter on the of his and her mother [id number] JERRY ROSENTHAL APRN ENDOCRINO [facility]Y [address] [place] [address] 05/10/2019 14:05:21 05/10/2019 15:12:59 Uncontrolled type 2 diabetes mellitus 691009222 E11.65 Diabetes mellitus Type 2, uncontroll ed. [...] 1.10GFR 70AST 22ALT 22MACR positive (100) Hyperlipidemia 42940333 E78.5 Goal LDL is under 100 mg/dl. Last LDL: 105 on 07/13/18Tri glycerides : 284 Pt reports not taking pravastati n. Has refills on file. Advised patient to restart. Continue pravastati n as prescribed per PCP.Contin ue dietary changes as recommende d. Essential hypertension 07983792 I10 Goal B.P is less than 140/90 mmHg. Continue current anti-hyper tensive medication s as appropriat e per patient s PCP. Renal diso rder due to type 2 diabetes mellitus 358974300 E11.22 MACR positive (119) on 01/10/18.Co ntinue losartan therapy as ordered. [id number] [facility] CLOS[facility] [address] [address] 05/28/2019 11:38:17 05/28/2019 13:55:27 [id number] [facility] T CLOSED [address] [place] [address] 06/04/2019 11:47:24 06/04/2019 12:06:08 [id number] YANNI COBIAN PA-C [address] [place] [address] 06/07/2019 12:54:56 06/07/2019 13:25:43 Essential hypertension 85039775 I10 continue with amlodipine and his losartan. Two-week follow-up. Reduce sodium diet. Work on weight loss. 2 weeks Administra tion of influenza vaccine 83913073 Z23 [id number] [facility] CLOS[facility] [address] [place] [address] 06/25/2019 11:43:55 06/25/2019 12:09:11 [id number] YANNI COBIAN PA-C [address] [place] [address] 06/29/2019 13:43:40 06/29/2019 14:18:27 Hypertensive disorder 95400803 I10 reduced sodium diet. monitor and keep log of BP Active or passive immunization 150471943 Z23 Screening colonoscopy 44 2991594 Z12.11 [id number] [facility] CLOS[facility] [address] [address] 07/09/2019 10:45:23 07/09/2019 11:14:41 [id number] MIQUEL HERRMANN MD [address] [place] [address] 07/23/2019 14:01:13 07/23/2019 15:32:24 Adult health examination 532375820 Z00.00 Hypertensive disorder 38 888794 I10 Hypertensi on is controlled . Hyperlipidemia 36251252 E78.5 I explained that I didn't think pravastati n was causing penile rash or memory difficulti es. Discussed the benefits outweigh the risk. He will continue it. Chronic depression 39468 0009 F34.1 Chronic ob structive pulmonary disease 90450077 J44.9 Diabetic p eripheral neuropathy 472636766 E11.40 Patient has signed CSA and SILVINO is appropriat e Body mass index 40+ - severely obese 285074627 Z68.42 Continue weight loss efforts. Memory impairment 264227 006 R41.3 We'll check TSH and B12. If his symptoms should worsen, he will let me know within arrange referral to neurology. Balanitis xerotica obliterans 740799888 N48.0 Screening for malignant neoplasm of prostate 112725472 Z12.5 Screening for malignant neoplasm of colon 162499708 Z12.11 Hepatitis C screening 41 0960112 Z11.59 [id number] [facility] [address] [place] [address] 07/27/2019 11:18:12 07/27/2019 12:07:56 [id number] JERRY ROSENTHAL SETH ENDOCR[facility] [address] [place] [address] 08/10/2019 11:41:27 08/13/2019 08:24:09 Uncontrolled type 2 diabetes mellitus 219119463 E11.65 Diabetes mellitus Type 2, uncontroll ed. [...] 92AST 18ALT 24MACR positive (100) 01/19/19 Hyperlipidemia 03558304 E78.5 Goal LDL is under 100 mg/dl. Last LDL: 93 on 07/23/19Trig lycerides: 138 Continue pravastati n as prescribed per PCP.Contin ue dietary changes as recommende d. Essential hypertension 42201421 I10 Goal B.P is less than 140/90 mmHg. Continue current anti-hyper tensive medication s as appropriat e per patient s PCP. Renal diso rder due to type 2 diabetes mellitus 561655622 E11.22 MACR positive (100) on 01/19/19.Con tinue losartan therapy as ordered. [id number] [facility] T CLOSED [address] [place] [address] 08/17/2019 10:49:39 08/17/2019 11:02:31 [id number] ELIZABETH CERNA DO DERMATOLO [facility] [address] [place] [address] 08/20/2019 11:08:39 08/20/2019 13:30:12 Neoplasm of uncertain behavior of skin 96192006 D48.5 L lutheran somewhat deeper, possibly subcutaneo us neoplasm punch biopsy sent for path r/o carcinoma vs subq neoplasm/n os Wound care discussed with patient. Leave the bandage on for 24 hrs. Clean the area daily with warm soapy water, and apply polysporin ointment and a bandaid once daily until healed. Call the office if any increase in redness, drainage, or pain. Raised loly orrheic keratosis [id number] 89950 L82.1 If any lesions change, or if any other new or symptomati c lesions occur, patient understand s to return to the clinic for further evaluation Discussed sun precaution s; SPF 30+ Inflamed s eborrheic keratosis 560534494 L82.[address] per patients request: bilateral clavicles x4 , L upper back x1 pt tolerated well advised pt what to expect with freezing Skin sensa tion disturbance 63832864 R20.9 ISK Solar lentiginosis 16183 2006 L81.4 benign reassuranc e sunscren hats [id number] [facility] [address] [facility] [place] [address] 08/20/2019 12:20:22 08/20/2019 14:14:14 Anxiety 48469970 F41.9 will prescribe a few ativan for patient for upcoming dental procedures . this has worked well for his anxiety in the past. Silvino appropriat e on 07/20/19. CSA signed. UDS negative-a ppropriate . [id number] [facility] CLOS[facility] [address] [place] [address] 1 08/31/2019 11:40:51 08/31/2019 11:53:12 [id number] EVITA DIAMOND MD SURGERY SCHEDULE [address] [place] [address] 1 09/04/2019 08:11:04 09/04/2019 08:12:56 [id number] [facility] T CLOSED [address] [place] [address] 1 09/14/2019 11:42:23 09/14/2019 11:54:38 [id number] [facility] T CLOSED [address] [place] [address] 1 10/25/2019 14:34:41 10/25/2019 14:48:31 [id number] [place] [address] [place] [address] 1 11/15/2019 13:07:42 11/15/2019 13:33:40 Uncontrolled type 2 diabetes mellitus 981557006 E11.65 Diabetes mellitus Type 2, uncontroll ed. [...] needs to reschedule , appt cancelled d/t COVID-. - Patient is up to date on urine testing for microalbum in. (ARB); - Patient verbalized understand ing of treatment plan. All questions answered. -Last labs on 07/23/19BUN 19Creatini ne 0.83GFR 92AST 18ALT 24MACR positive (100) 01/19/19 Hyperlipidemia 60484936 E78.5 Goal LDL is under 100 mg/dl. Last LDL: 93 on 07/23/19Trig lycerides: 138 Continue pravastati n as prescribed per PCP.Contin ue dietary changes as recommende d. Essential hypertension 09712907 I10 Goal B.P is less than 140/90 mmHg. Continue current anti-hyper tensive medication s as appropriat e per patient s PCP. Renal diso rder due to type 2 diabetes mellitus 242213485 E11.22 MACR positive (100) on 01/19/19.Con tinue losartan therapy as ordered. [id number] MIQUEL HERRMANN MD [facility] [address] [place] [address] 11/16/2019 13:27:55 11/19/2019 08:40:45 Chronic obstructive pulmonary disease 49319142 J44.9 Prednisone as directed. He is aware of potential side effects of prednisone . Continue inhalers as directed. I encouraged him to follow up with his pulmonolog ist next week. If he is acutely worse, he will go to the emergency room Diarrhea 85211706 R19.7 Diarrhea has resolved. If it should recur and worsen, he will let me know Fatigue 14640359 R53.83 We'll check fatigue labs. I suspect his fatigue is largely due to his COPD. [id number] [facility] CLOSED [address] [place] [address] 11/29/2019 12:31:51 11/29/2019 12:35:35 [id number] CELIA MONGE PA-C [facility] [address] [place] [address] 01/10/2020 13:05:49 01/10/2020 14:46:26 Chronic obstructive pulmonary disease 61008619 J44.9 pt has chronic SOA on symbicort. has failed spiriva and advair. using nebs and albuterol inhaler frequently . has appt with pulmonary through OR next month, but he would like O2. he stays short of air 10/01. need appt for eval for this. Fatigue 61822979 R53.83 chronic fatigue. never came in for labs in late october. will order. [id number] MIQUEL HERRMANN MD [facility] [address] [place] [address] 01/28/2020 14:25:49 01/28/2020 15:19:26 Hypertensive disorder 75241628 I10 Hypertensi on is controlled . Hyperlipidemia 77357896 E78.5 Chronic depression 37484 0009 F34.1 Chronic ob structive pulmonary disease 76243605 J44.9 He will follow-up with his pulmonolog ist at the OR and discuss oxygen. Diabetic p eripheral neuropathy 708138399 E11.40 Patient has signed CSA and SILVINO is appropriat e Body mass index 40+ - severely obese 661584538 Z68.42 Continue weight loss efforts. Memory impairment 348291 006 R41.3 Mild. If it should worsen, he will let me know and we can arrange referral to neurology [id number] JERRY ROSENTHAL APRN ENDOCRINO [facility] [address] [place] [address] 03/11/2020 14:01:47 03/11/2020 14:45:04 Uncontrolled type 2 diabetes mellitus 068906082 E11.65 Diabetes mellitus Type 2, uncontroll ed. [...] 86AST 24ALT 33MACR positive (100) 01/19/19 Hyperlipidemia 14994397 E78.5 Goal LDL is under 100 mg/dl. Last LDL: 124 on 01/28/20Tri glycerides : 291 Continue pravastati n as prescribed per PCP.Contin ue dietary changes as recommende d. Essential hypertension 78540260 I10 Goal B.P is less than 140/90 mmHg. Continue current anti-hyper tensive medication s as appropriat e per patient s PCP. Renal diso rder due to type 2 diabetes mellitus 861942792 E11.22 MACR positive (100) on 01/19/19.Con tinue losartan therapy as ordered. [id number] ISAAK FLOWERS MD OPHTH[facility]MO LOG[facility] [address] [address] 04/03/2020 14:06:20 04/03/2020 16:44:47 Type 1 diabetes mellitus 06417294 E10.9 Bilateral pseudophakia [id number] 8270179 Z96.1 Myopic astigmatism 85401 4005 H52.209 Presbyopia 02410609 H52. 4 [id number] MIQUEL HERRMANN MD [facility] [address] [place] [address] 06/16/2020 15:03:58 06/16/2020 16:22:36 Chronic obstructive pulmonary disease 88595481 J44.9 O2 level is 93% at rest and 84% after walking briefly. Arrange home oxygen at 2 L/m per nasal cannula. Arrange referral to pulmonary. Continue current inhalers. If he should acutely worsen, he will go to the emergency room. Snoring 27205367 R06.83 Arrange appointmen t with pulmonary Administra tion of influenza vaccine 96104204 Z23 [id number] SILVESTRE MCLAIN PA-C PULMONARY [address] [facility], [address] [place] [address] 07/10/2020 12:59:17 07/11/2020 10:03:15 Dyspnea on exertion 36163125 R06.09 chest x-ray does not show infiltrate today. exercise pulse oximetry shows oxygen saturation on room air of 88%. PFTs do not show evidence of COPD. DLCO is normal. May also need cardiac evaluation . Increased risks of cardiac disease due to HTN, obesity, and diabetes. Hypoxemia 951682638 R09. [address] PE protocol ordered for hypoxemia. Patient will also need an echocardio gram with a bubble study to evaluate for CHF, pulmonary hypertensi on, and a shunt. CT chest PE protocol ordered for tomorrow morning. will call with result. he would be at increased risk for DVT/PE due to obesity. Former hea vy tobacco smoker 6515590277 29237 Z87.891 patient is a candidate for CT chest lung cancer screening. He has a 32-pack-ye ar smoking history. This is not ordered today because a CT PE protocol was ordered. Morbid obesity 322141699 E66.01 hypoxemia may be related to obesity hypoventil ation syndrome. Patient will be returning to clinic tomorrow for an ABG (had to leave today) Snoring 30338741 R06.83 patient will also neck need an in lab sleep study to evaluate for SARAI. [id number] HERMAN MONTOYA MD PULMONARY [address] [facility], [address] [place] [address] 07/11/2020 12:22:59 07/11/2020 13:03:29 Dyspnea on exertion 75712259 R06.09 [id number] JERRY ROSENTHAL APRN ENDOCRINO [facility]Y [address] [place] [address] 07/16/2020 13:54:54 07/16/2020 14:37:50 Multiple complications due to type 2 diabetes mellitus 259664003 E11.8 Diabetes mellitus Type 2, controlled . A 1c in office today of 6.8%, up from 8.3%. G oal A1C by ADA criteria is less than 7%. Random blood glucose 198. Recommenda tions: -Congratul ated pt on significan t improvemen t in A1c! -Continueh umulin R U-500. [id number] efore breakfast, 105ubefore dinner, [id number] re bedtime snack. Take this insulin 20-30minbe [...] 86AST 24ALT 33MACR positive (100) 01/19/19 Hyperlipidemia 47360185 E78.5 Goal LDL is under 100 mg/dl. Last LDL: 124 on 01/28/20Tri glycerides : 291 Continue pravastati n as prescribed per PCP.Contin ue dietary changes as recommende d. Essential hypertension 17713688 I10 Goal B.P is less than 140/90 mmHg. Continue current anti-hyper tensive medication s as appropriat e per patient s PCP. 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 [id number] ISAAK CASTRO MD [facility] CLOSED [address] [facility] [place] [address] 07/21/2020 13:50:01 07/22/2020 09:13:55 Dyspnea on exertion 54346631 R06.09 [id number] MIQUEL HERRMANN MD [facility] [address] [place] [address] 08/12/2020 15:09:47 08/12/2020 15:45:22 Adult health examination 025438667 Z00.00 Hypertensive disorder 38 500202 I10 Hypertensi on is controlled . Hyperlipidemia 97831826 E78.5 Chronic depression 80283 0009 F34.1 Stable. Continue fluoxetine Chronic ob structive pulmonary disease 80174681 J44.9 [facility] Diabetic p eripheral neuropathy 210795094 E11.40 Patient has signed CSA and SILVINO is appropriat e Body mass index 40+ - severely obese 390669202 Z68.42 Continue weight loss efforts. Screening for malignant neoplasm of prostate 133951843 Z12.5 [id number] MIQUEL HERRMANN MD [facility] [address] [place] [address] 09/25/2020 13:44:45 09/25/2020 14:14:10 Venous insufficiency of lower limb 521103998 I87.2 I explained venous insufficie ncy to patient and his . Elevate legs. Consider compressio n hose. Amlodipine may be contributi ng some decreased the dosage. Also will begin HCTZ. Hypertensive disorder 38 430552 I10 Hypertensi on is controlled Decrease amlodipine to 5 mg daily and begin HCTZ 12.5 mg every morning. Monitor blood pressure and he will let me know if he doesn't stay below 140/90 Sprain of shoulder rotator cuff 2467544364 04 S43.422A Left rotator cuff sprain Alternate heat and ice to area. Tylenol as directed. If not improving, we'll arrange referral to physical therapy. [id number] JERRY ROSENTHAL APRN ENDOCRINO [facility] [address] [place] [address] 11/10/2020 13:04:09 11/10/2020 15:49:36 Multiple complications due to type 2 diabetes mellitus 739581549 E11.8 Diabetes mellitus Type 2, controlled . [...] ALT 33 MACR positive (249) 07/16/20 Hyperlipidemia 45964480 E78.5 Goal LDL is under 100 mg/dl. Last LDL: 124 on 01/28/20Tri glycerides : 291 Continue pravastati n as prescribed per PCP.Contin ue dietary changes as recommende d. Essential hypertension 13507325 I10 Goal B.P is less than 140/90 mmHg. Continue current anti-hyper tensive medication s as appropriat e per patient s PCP. Renal diso rder due to type 2 diabetes mellitus 842846390 E11.22 MACR positive (249) on 07/16/20. Continue losartan therapy as ordered. [id number] MIQUEL HERRMANN MD [facility] [address] [place] [address] 02/09/2021 14:37:31 02/09/2021 15:51:14 Diabetic peripheral neuropathy 107399385 E11.40 Patient has signed CSA and SILVINO is appropriat e. Continue gabapentin COVID-[address] scan consistent with COVID-19 pneumonia along with significan t desaturati on with minimal exertion. I encouraged him to go back to the emergency room right away and he states that he will do so. 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 Call with changing/f luxuating vision. [id number] JERRY ROSENTHAL APRN ENDOCRINO [facility]Y [address] [place] [address] 08/03/2021 11:35:06 08/11/2021 14:09:26 Multiple complications due to type 2 diabetes mellitus 483282570 E11.8 Diabetes mellitus Type 2, uncontroll ed. [...] ALT 19 MACR positive (249) 07/16/20 Hyperlipidemia 54974903 E78.5 Goal LDL is under 100 mg/dl. Last LDL: 75 on 08/12/20Tri glycerides : 235Continu e pravastati n as prescribed per PCP.Contin ue dietary changes as recommende d. Essential hypertension 62016400 I10 Goal B.P is less than 140/90 mmHg. Continue current anti-hyper tensive medication s as appropriat e per patient s PCP. Renal diso rder due to type 2 diabetes mellitus 413715105 E11.22 MACR positive (249) on 07/16/20. Continue losartan therapy as ordered. [id number] MIQUEL HERRMANN MD [facility] [address] [place] [address] 04/28/2021 10:14:41 04/28/2021 12:09:14 Hypertensive disorder 25531054 I10 Hypertensi on is controlled . Continue current medication s Hyperlipidemia 61206551 E78.5 Continue pravastati n and a low-choles terol diet Chronic depression 94015 0009 F34.1 Stable. Continue fluoxetine Chronic ob structive pulmonary disease 12844234 J44.9 Continue plan per [place] pulmonolog ist. I encouraged patient to follow-up with his pulmonolog ist soon Diabetic p eripheral neuropathy 009799314 E11.40 Patient has signed FARIHA and SILVINO is appropriat e Body mass index 40+ - severely obese 846698885 Z68.42 Continue weight loss efforts. Pneumonia 674962915 J18. 9 Patient had recent pneumonia we will check chest x-ray. He still has cough productive of discolored sputum. Doxycyclin e as directed. Bilateral rotator cuff tendinitis 8272378536 8792469 M67.813 I encouraged patient to see his orthopedic surgeon soon. Continue Tylenol as directed for discomfort . [id number] KARUNA ALDRIDGE MD UROLOGY SB CLOSED [address] [place] [address] 05/19/2021 14:24:24 05/20/2021 08:40:14 Lichen sclerosus of penis 496041593 N48.0 Lower urin terence tract symptoms due to benign prostatic hypertrophy 8944389690 9101 N40.1 Screening for malignant neoplasm of prostate 452132018 Z12.5 Urinary incontinence 165 038201 R32 Morbid obesity 856443813 E66.01 Type 2 katie betes mellitus without complication 631983839 E11.9 [id number] KARUNA ALDRIDGE MD SURGERY SCHEDULE [address] [place] [address] 07/13/2021 11:43:00 07/13/2021 11:44:06 Lichen sclerosus of penis 398734422 N48.0 Lower urin terence tract symptoms due to benign prostatic hypertrophy 0599299906 9101 N40.1 Urinary incontinence 165 130417 R32 Morbid obesity 202558886 E66.01 Type 2 katie betes mellitus without complication 111243691 E11.9 [id number] MIQUEL HERRMANN MD [facility] [address] [place] [address] 07/28/2021 11:30:32 07/28/2021 12:06:14 Hyperlipidemia 00843463 E78.5 Hold pravastati n for now. Consider alternativ e to pravastati n if Dr. Cerna believes rash is related to pravastati n. Chronic dermatitis 76165 007 L30.9 Dermatitis of the lower legs which has a consistenc y of venous stasis dermatitis but could be drug reaction to pravastati n. Arrange referral to Dr. Cerna for further evaluation and his opinion. If Dr. Cerna feels like it is venous stasis dermatitis then will restart pravastati n. 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 Kuo in [facility] in November. He is still having pain in the area. There is no evidence of cellulitis or acute contact dermatitis . He failed tx with triamcinol one 0.1% BID for several weeks. His surgeon suspects an allergic reaction to subepiderm al sutures, discussed with him may take 1 year to dissolve. I recommende d he continue post op care with Dr. Kuo [id number] MIQUEL HERRMANN MD [facility] [address] [address] 08/18/2021 10:15:13 08/18/2021 11:39:01 Administration of pneumococcal vaccine 04163263 Z23 [id number] JERRY ROSENTHAL APRN ENDOCR[facility] [address] [place] [address] 10/09/2021 09:08:20 10/09/2021 09:59:25 Multiple complications due to type 2 diabetes mellitus 599065792 E11.8 Diabetes mellitus Type 2, uncontroll ed. [...] dexcom today. Advised him to bring in woods rider in 2 weeks for download and further [...] ALT 19 MACR positive (249) 07/16/20 Hyperlipidemia 54741535 E78.5 Goal LDL is under 100 mg/dl. Last LDL: 75 on 08/12/20Tri glycerides : 235Pt discontinu ed pravastati n d/t rash. Has upcoming appt with PCP to discuss alternativ es.Continu e dietary changes as recommende d. Essential hypertension 65113147 I10 Goal B.P is less than 140/90 mmHg. Continue current anti-hyper tensive medication s as appropriat e per patient s PCP. Renal diso rder due to type 2 diabetes mellitus 561555472 E11.22 MACR positive (249) on 07/16/20. Continue losartan therapy as ordered. [id number] MIQUEL HERRMANN MD [facility] [address] [place] [address] 10/26/2021 12:55:48 10/26/2021 13:43:55 Adult health examination 446089545 Z00.00 Hypertensive disorder 38 111634 I10 Hypertensi on is controlled . Continue current medication s Hyperlipidemia 16738561 E78.5 Consider Zetia if his LDL remains elevated since he had rash with pravastati n. Chronic depression 18068 0009 F34.1 Stable. Continue fluoxetine Chronic ob structive pulmonary disease 06553628 J44.9 [facility]. Diabetic p eripheral neuropathy 199708058 E11.40 Patient has signed CSA and SILVINO is appropriat e. Stable. Continue gabapentin Body mass index 40+ - severely obese 801334900 Z68.42 Continue weight loss efforts. Bilateral rotator cuff tendinitis 5345552126 2947063 M67.813 Continue plan per orthopedis t Decreased hearing 792896 001 H91.90 Arrange audiology referral Screening for malignant neoplasm of prostate 707961662 Z12.5 Patient will share PSA results with Dr. Leung Chronic low back pain 27 8541404 M54.50 Tylenol as directed for discomfort . Heat and ice to area. Lower urin terence tract symptoms due to benign prostatic hypertrophy 2127310250 9101 N40.1 Continue tamsulosin and keep follow-up next week with Dr. Leung [id number] JERRY ROSENTHAL APRN ENDOCRINO [facility]Y [address] [place] [address] 04/21/2022 13:09:02 04/21/2022 14:14:22 Multiple complications due to type 2 diabetes mellitus 329994764 E11.8 Diabetes mellitus Type 2, uncontroll ed. [...] ALT 21 MACR positive (249) 07/16/20 Hyperlipidemia 99185932 E78.5 Goal LDL is under 100 mg/dl. Last LDL: 75 on 08/12/20Tri glycerides : 235Pt discontinu ed pravastati n d/t rash. Has upcoming appt with PCP to discuss alternativ es.Continu e dietary changes as recommende d. Essential hypertension 59871230 I10 Goal B.P is less than 140/90 mmHg. Continue current anti-hyper tensive medication s as appropriat e per patient s PCP. Renal diso rder due to type 2 diabetes mellitus 874879562 E11.22 MACR positive (249) on 07/16/20. Continue losartan therapy as ordered. [id number] MIQUEL HERRMANN MD [facility] [address] [place] [address] 05/11/2022 14:35:47 05/11/2022 15:10:55 Hypertensive disorder 17135071 I10 Hypertensi on is controlled . Continue current medication s Hyperlipidemia 49736722 E78.5 Discontinu e Zetia. Patient would like to restart pravastati n. He thought it was causing a rash but he does have venous stasis dermatitis which did not change after he went off pravastati n. Chronic depression 18009 0009 F34.1 Stable. Continue fluoxetine Chronic ob structive pulmonary disease 63439107 J44.9 Stable. [facility]. Diabetic p eripheral neuropathy 181442800 E11.40 Patient has signed CSA and SILVINO is appropriat e. Stable. Continue gabapentin Body mass index 40+ - severely obese 658012592 Z68.42 Continue weight loss efforts. Chronic low back pain 27 1009512 M54.50 Stable. Continue Tylenol as directed Lower urin terence tract symptoms due to benign prostatic hypertrophy 3273909240 9101 N40.1 [address]. Continue t[address] Leung Lichen scl erosus of penis 967881746 N48.0 Continue current treatment and follow-up with urologist [id number] MIQUEL HERRMANN MD [facility] [address] [place] [address] 06/08/2022 15:20:43 06/08/2022 15:47:[address] segment elevation myocardial infarction 5538642653 76693 Z86.79 Stable. Continue Brilinta, bisoprolol and active management per his cardiologi st, Dr. Sfoia. He is doing remarkably well after his recent RI. Normal grief reaction 27 4810652 F43.20 I expressed my condolence s to Mr. Allen and his daughter on the of his mother-in- law. 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 [...] 18 ALT 20 MACR positive (303) Hyperlipidemia 87189152 E78.5 Goal LDL is under 100 mg/dl. Last LDL: 131 on 05/11/22Tr iglyceride s: 243Continu e atorvastat in per PCP/ cardiology .Continue dietary changes as recommende d. Essential hypertension 69232679 I10 Goal B.P is less than 140/90 mmHg. Continue current anti-hyper tensive medication s as appropriat e per patient s PCP. Renal diso rder due to type 2 diabetes mellitus 402806695 E11.22 MACR positive (303) on 04/21/22 Continue losartan therapy as ordered. [id number] YANNI COBIAN PA-C [address] [place] [address] 09/06/2022 14:05:42 09/06/2022 14:47:23 Acute left otitis media 380395206 H66.92 ? perforatio n. Patient to finish out his antibiotic s both oral and drops. Avoid Q-tips. ENT referral [id number] CELIA MONGE PA-C [address] [place] [address] 09/09/2022 09:40:11 09/09/2022 10:35:18 Neck pain 90682338 M54.2 Flareup of neck pain about 1 [...] not improving with physical therapy. Cervical radiculopathy 79665410 M54.12 Left cervical radiculopa thy. If patient [...] persists, he will need further imaging studies. [id number] EZEKIEL TY PA-C DERMATOLO GY [address] [place] [address] 10/26/2022 11:07:27 10/26/2022 11:36:24 Patient advised about exposure to the sun 200722569 Z71.89 Counseled on sun protective clothing/h ats and daily UV protection with otc broad-spec trum SPF 30+ on exposed areas. Regular self-skin exams recommende d. Pt encouraged to RTC with any new/changi ng lesions. Lentiginosis 334006163 L 81.4 Benign reassuranc e Raised loly orrheic keratosis 3248742174 24820 L82.1 Benign reassuranc e Sebaceous hyperplasia 23 1860229 L21.8 Benign reassuranc e Hemangioma 564073822 D18 .00 Benign reassuranc e Neurofibroma 704360450 D 36.10 Benign reassuranc eAsx [id number] MD ALBER [facility] [address] [place] [address] 10/28/2022 15:31:17 10/28/2022 16:45:31 Blood in ear canal 425409856 H92.23 10/28/22- Normal otoscopic appearance s. Both TM's intact. Deviated nasal septum 12 4225768 J34.2 -To the right. Coronary arteriosclerosis 02550187 I25.10 Moderate p ersistent asthma 991745049 J45.40 Type 1 katie betes mellitus 76828946 Z79.4 [id number] MIQUEL HERRMANN MD [facility] [address] [place] [address] 11/08/2022 13:53:32 11/08/2022 15:29:43 Adult health examination 984330622 Z00.00 Screening for malignant neoplasm of colon 563164920 Z12.11 Colonoscop y 09/04/19 revealed diverticul osis. Repeat in 2029. Screening for malignant neoplasm of prostate 016667443 Z12.5 Patient will share PSA results with Dr. Leung Hepatitis C screening 41 2825147 Z11.59 Has patient ever had Hep C screening? YES Hypertensive disorder 38 984387 I10 Hypertensi on is controlled . Continue valsartan/ HCTZ. Hyperlipidemia 03379761 E78.5 Discontinu e Zetia. Patient would like to restart pravastati n. He thought it was causing a rash but he does have venous stasis dermatitis which did not change after he went off pravastati n. Chronic ob structive pulmonary disease 07281307 J44.9 Stable. [facility]. Diabetic p eripheral neuropathy 050397107 E11.40 Patient has signed CSA and SILVINO is appropriat e. Stable. Continue gabapentin Body mass index 40+ - severely obese 370134224 Z68.42 Continue weight loss efforts. Chronic low back pain 27 9274464 M54.50 Stable. Continue Tylenol as directed Lower urin terence tract symptoms due to benign prostatic hypertrophy 2169476273 9101 N40.1 [address]able. Continue t[address] Leung Lichen scl erosus of penis 998041798 N48.0 Continue current treatment and follow-up with urologist Recurrent major depression 68979314 F33.9 Stable. Continue fluoxetine Morbid obesity 905458147 E66.01 Continue weight loss efforts. Fatigue 22426218 R53.83 I explained that fatigue is multifacto rial and he has several reasons to feel fatigued including morbid obesity, being sedentary, COPD and uncontroll ed diabetes. He also has depression which can contribute . Coronary arteriosclerosis 52821420 I25.10 Stable. Continue active management per cardiologi st [id number] JERRY ROSENTHAL APRN ENDOCRINO LOGY [address] [place] [address] 12/22/2022 14:17:24 12/22/2022 15:13:00 Multiple complications due to type 2 diabetes mellitus 112223075 E11.8 A 1c in office today of 8.7%, up from 7.9%, 08/18/22. G oal A1C by ADA criteria is less than 7%. Random blood glucose 180. Recommenda tions: -Unable to connect to dexcom again in office today. Connection code and instructio ns provided. We will have the dexcom quality review trainer reach out to him. Pt will notify us once he is connected. Discussed potential treatment options. He is interested in insulin pump. Met with [place] product marketing manager 11/2022. We will send PA for tandem [...] 19 ALT 19TSH 1.320MACR positive (303) Hyperlipidemia 80714111 E78.5 Goal LDL is under 100 mg/dl. Last LDL: 38 on 11/08/22Tri glycerides : 105Continu e atorvastat in per PCP/ cardiology .Continue dietary changes as recommende d. Essential hypertension 97962594 I10 Goal B.P is less than 140/90 mmHg. Continue current anti-hyper tensive medication s as appropriat e per patient s PCP. Renal diso rder due to type 2 diabetes mellitus 533560211 E11.22 MACR positive (303) on 04/21/22 Continue losartan therapy as ordered. [id number] JERRY ROSENTHAL APRN ENDOCRINO [facility] [address] [place] [address] 03/02/2023 12:41:53 03/02/2023 14:49:00 Multiple complications due to type 2 diabetes mellitus 196419324 E11.8 A 1c in office today of [...] 19 ALT 19TSH 1.320MACR positive (303) Hyperlipidemia 85066319 E78.5 Goal LDL is under 100 mg/dl. Last LDL: 38 on 11/08/22Tri glycerides : 105Continu e atorvastat in per PCP/ cardiology .Continue dietary changes as recommende d. Essential hypertension 77543865 I10 Goal B.P is less than 140/90 mmHg.Jose Angel nue current anti-hyper tensive medication s as appropriat e per patient s PCP. Renal diso rder due to type 2 diabetes mellitus 050597091 E11.22 MACR positive (303) on 04/21/22 Continue losartan therapy as ordered. [id number] TONYA BOLAND MD OPHTHALMO [facility] [address] ,[address] [place] [address] 03/01/2023 12:25:20 03/01/2023 13:39:55 Blepharitis 07215675 H01.00A H01.00B - discussed likely allergic etiology- Pataday, ATs, lid scrubs daily- start TobraDex TID for up to 2 weeks, then stop RTC as planned with Dr. Stoll, sooner as needed [id number] JERRY ROSENTHAL APRN ENDOCRINO [facility] [address] [place] [address] 08/02/2023 10:57:43 08/02/2023 13:41:57 Multiple complications due to type 2 diabetes mellitus 041328394 E11.8 A 1c in office today of [...] 35 ALT 34TSH 1.320MACR positive (303) Hyperlipidemia 63504824 E78.5 Goal LDL is under 100 mg/dl. Last LDL: 38 on 11/08/22Tri glycerides : 105Continu e atorvastat in per PCP/ cardiology .Continue dietary changes as recommende d. Essential hypertension 27647280 I10 Goal B.P is less than 140/90 mmHg.Jose Angel nue current anti-hyper tensive medication s as appropriat e per patient s PCP. Renal diso rder due to type 2 diabetes mellitus 513578940 E11.22 MACR positive (303) on 04/21/22 Continue losartan therapy as ordered. [id number] JERRY ROSENTHAL APRN ENDOCRINO [facility] [address] [place] [address] 11/30/2023 15:03:26 12/01/2023 08:13:13 Multiple complications due to type 2 diabetes mellitus 632162954 E11.8 A 1c in office today of [...] 35 ALT 34TSH 1.320MACR positive (303) Hyperlipidemia 90313867 E78.5 Goal LDL is under 100 mg/dl. Last LDL: 38 on 11/08/22Tri glycerides : 105Continu e atorvastat in per PCP/ cardiology .Continue dietary changes as recommende d. Essential hypertension 53113313 I10 Goal B.P is less than 140/90 mmHg.Jose Angel nue current anti-hyper tensive medication s as appropriat e per patient s PCP. Renal diso rder due to type 2 diabetes mellitus 802152714 E11.22 MACR positive (303) on 04/21/22 Continue losartan therapy as ordered. [id number] ELIZABETH CERNA DO DERMATOLO [facility] [address] [place] [address] 03/08/2024 09:50:16 03/08/2024 11:06:10 Lentiginosis 329568227 L81.4 Benign reassuranc e recommende d sun protective clothing and a mineral based sunscreen 30 SPF or higher lotion OTC daily Raised loly orrheic keratosis [id number] 78344 L82.1 Benign reassuranc e Sebaceous hyperplasia 23 1835916 L21.8 Benign reassuranc e Hemangioma 282937414 D18 .00 Benign reassuranc e Neurofibroma 975754654 D 36.10 Benign reassuranc ept stated spot was bothersome discussed removal today pt declined and will re-evaluat e at next visit. Senile purpura 26911524 D69.2 Benign Reassuranc e Inflamed s eborrheic keratosis 212267912 L82.[address] per patients request: Education then treated with LN; right upper cheek x1, left lutheran [id number], bothersome LN at pt requestpt tolerated well advised pt what to expect with freezing [id number] MIQUEL STOLL MD [facility]THALMO [facility] [address] [address] 03/08/2024 10:58:06 03/08/2024 14:50:23 Type 2 diabetes mellitus without complication 124849984 E11.9 no retinopath y ou - (previousl [...] changing/f luxuating vision.1 year and pnr Pseudophakia 05253542 Z9 6.1 stable, obs [id number] MICHEAL HILARIO MD [place] [facility] [address] [place] [address] 06/18/2024 14:08:31 06/18/2024 16:06:41 Deviated nasal septum 096128620 J34.2 Coronary arteriosclerosis 64697375 I25.10 Moderate p ersistent asthma 153396410 J45.40 Type 1 katie betes mellitus 79928925 Z79.4 Laryngopha ryngeal reflux 632996516 K21.9 on a regimen of Pantoprazo le Chronic hoarseness 80570 73624 105 R49.0 06/18/24 Laryngeal Fiberoptic exam = Slight presbylary nx, glottic closure is not tight; no evidence of vocal nodules or polyps and certainly no evidence of neoplasia 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 06/18/24 - Laryngeal Fiberoptic exam = Slight presbylary nx, glottic closure is not tight; no evidence of vocal nodules or polyps and certainly no evidence of neoplasia Pharyngeal dryness 48913 8009 J39.2 Allergic rhinitis 805099 04 J30.9 Chronic ob structive pulmonary disease 89197979 J44.9 [id number] JERRY ROSENTHAL APRN ENDOCRINO [facility] [address] [place] [address] 08/23/2024 10:26:20 08/23/2024 10:54:26 Multiple complications due to type 2 diabetes mellitus 797285532 E11.8 A 1c in office today of [...] 35 ALT 34TSH 1.320MACR positive (303) Hyperlipidemia 72112258 E78.5 Goal LDL is under 100 mg/dl. Last LDL: 38 on 11/08/22Tri glycerides : 105Continu e atorvastat in per PCP/ cardiology .Continue dietary changes as recommende d. Essential hypertension 22752725 I10 Goal B.P is less than 140/90 mmHg.Jose Angel nue current anti-hyper tensive medication s as appropriat e per patient s PCP. Renal diso rder due to type 2 diabetes mellitus 720089376 E11.22 MACR positive (303) on 04/21/22 Continue losartan therapy as ordered. [id number] JERRY ROSENTHAL APRN ENDOCRINO [facility] [address] [place] [address] 12/26/2024 13:26:17 12/26/2024 14:37:31 Multiple complications due to type 2 diabetes mellitus 269358932 E11.8 A 1c in office today of [...] ALT 15TSH 1.130MACR positive (59- IMPROVED) Hyperlipidemia 21596556 E78.5 Goal LDL is under 100 mg/dl. Last LDL: 49 on 08/23/24Trig lycerides: 74Continue atorvastat in per PCP/ cardiology .Continue dietary changes as recommende d. Essential hypertension 14393056 I10 Goal B.P is less than 140/90 mmHg.Jose Angel nue current anti-hyper tensive medication s as appropriat e per patient s PCP. Renal diso rder due to type 2 diabetes mellitus 732842930 E11.22 MACR positive (59) on 08/23/24 Continue losartan therapy as ordered. Long-term current use of insulin 634202751 Z79.4 [id number] A 1c in office today of 6.8%, [...] AST 35 ALT 34TSH 1.320MACR positive (303) [id number] SABA-LIZ DIAMOND MD GASTR[facility] [address] [facility], [address] [place] [address] 03/01/2025 13:23:28 03/01/2025 15:40:24 Pile easily reducible 058606698 K64.8 0944576892 Advised pt self care, manual reduction and not to sit on toilet seat for a prolonged time. [id number] MIQUEL STOLL MD [facility]THALMO [facility] [address] [place] [address] ,[address] [place] [address] 03/15/2025 10:50:46 03/15/2025 12:25:59 Type 2 diabetes mellitus without complication 964471134 E11.9 no retinopath y ouI discussed diabetes with this patient. I discussed the importance of sugar control for reducing risk of diabetic complicati ons in the eyes. I recommende d they follow up with their PCP/endocr inologist for continue sugar evaluation /managemen t. Also discussed importance of cardiovasc ular risk reduction. Call with changing/f luxuating vision.1 year and pnr Pseudophakia 23572594 Z9 6.1 stable, obsmr today [id number] JERRY ROSENTHAL APRN ENDOCRINO [facility] [address] [place] [address] 05/01/2025 13:50:32 05/01/2025 14:41:38 Multiple complications due to type 2 diabetes mellitus 493420487 E11.8 A 1c in office today of [...] ALT 15TSH 1.130MACR positive (59- IMPROVED) Hyperlipidemia 20440412 E78.5 Goal LDL is under 100 mg/dl. Last LDL: 49 on 08/23/24Trig lycerides: 74Continue atorvastat in per PCP/ cardiology .Continue dietary changes as recommende d. Essential hypertension 44263064 I10 Goal B.P is less than 140/90 mmHg.Jose Angel nue current anti-hyper tensive medication s as appropriat e per patient s PCP. Renal diso rder due to type 2 diabetes mellitus 365775721 E11.22 MACR positive (59) on 08/23/24 Continue losartan therapy as ordered. Long-term current use of insulin 987026341 Z79.4 [id number] Health Concerns Section Related Observation LastModified by Organization Detai ls LastModified Time None Recorded Concern Status LastModified by Organization Details LastModified Time None Recorded Advance Directives Directive N: Payers Insurance Date Sequence Insurance Name Policy Number Policy Lockett Covered Member ID Lockett Member ID Guarantor Name 05/06/2025 2 [place] 111 Miquel Allen [id number] Miquel Allen 08/31/2018 1 *SELF PAY* Geri dowell Lizz Alejandro 04/28/2025 1 MEDICARE-[employer] (MEDICARE) Miquel Allen [id number] Miquel Newton Alejandro 07/21/2020 PAYMENT PLAN Miquel Allen Notes Date Note Type Note Provider Name and Address Organization Details Recorded Time 5 text/html ROS as noted in the [...] sensors are on back order. Currently using [employer] meter. Hx: Needs another left shoulder surgery [...] unable to download -g avg. 221 Duration: chronic Compliance: compliant with [...] NoHypertension: YesHyperlipidemia: Yes JERRY ROSENTHAL, SETH [address] [place], [address], [facility] 08/23/2024 12:18:59 5 text/html ROS as noted [...] insulin dose. Using dexcom appropriately. Interested in yonas. Hx: Needs another left shoulder surgery 10/27, [...] neuropathy: YesDiabetic nephropathy: NoHypertension: YesHyperlipidemia: Yes JERRY ROSENTHAL APRN [address] [place], [address], [facility] 12/26/2024 15:03:41 text/html This is a pleasant 69 yom here for the first time since 2019Current status:rectal concernsSymptoms: feels a soft lump near anus after BMs, no bleeding, retracts spontaneously with wiping. He does tend to sit on toilet for a while reading his phone.Treatments:manual self reductionAdditional info:last colonoscopy 2019 overall normal EVITA DIAMOND MD [address] [place], [address], [facility] 03/01/2025 13:50:06 09/26/202 5 text/html ROS as noted in the HPI MIQUEL STOLL MD [address] [place], [address], [facility] 03/15/2025 12:20:47 5 text/html ROS as noted in the [...] neuropathy: YesDiabetic nephropathy: NoHypertension: YesHyperlipidemia: Yes JERRY ROSENTHAL APRN [address] [place], [address], [facility] 05/01/2025 14:37:16
--- OUTSIDE RECORDS SUMMARY | 2025-06-17 09:12 | XMS_ITS | Clinical Summary ---
Author Organization [facility] Address [address] [place] [address] Care Team Providers Care Grade Checker Name Role Phone Fritz Leung MD Unavailable [phone] Jose Thurman MD Primary Care Provider [phone] Allergies Active Allergy Reactions Criticality Noted Date [...] needed. Active amLODIPine (Norvasc) 10 MG tablet 05/11/20 22 Active cetirizine (ZyrTEC) 10 MG tablet 1 tablet (10 mg). 05/20/20 22 Active diclofenac (Voltaren) 1 % topical gel Place on the skin if needed. 11/10/19 22 Active DULoxetine (Cymbalta) [address] capsule Take 30 mg by mouth twice a day. Active ezetimibe (Zetia) 10 MG tablet Take by mouth 1 (one) time each day. 08/06/19 23 Active FLUoxetine (PROzac) 20 MG capsule Take 3 capsules (60 mg) by mouth 1 (one) time each day. 3 capsules 07/08/19 23 Active fluticasone (Flonase) 50 MCG/ACT nasal spray USE 1 SPRAY(S) IN EACH NOSTRIL ONCE DAILY 09/16/19 22 Active gabapentin (Neurontin) 600 MG tablet gabapentin 600 mg tablet TAKE 2 TABLETS BY MOUTH THREE TIMES DAILY Active Advocate Insulin Pen Theodore 31G X 8 MM misc 06/09/20 22 Active HumuLIN R U-500 KWIKPEN 500 UNIT/ML CONCENTRATED injection pen Inject under the skin. 60-70 units depending on fingerstick check 08/02/19 23 Active ipratropium-albu terol (Duo-Neb) 0.5-2.5 mg/3 mL nebulizer solution Take 3 mL by nebulization if needed. Active lidocaine (Lidoderm) 5 % patch Apply topically 1 (one) time each day. 02/17/20 22 Active nystatin (Mycostatin) ointment Apply topically if needed. 03/25/20 22 Active pravastatin (Pravachol) 20 MG tablet 05/11/20 22 Active loratadine (Claritin) 10 MG tablet Take 1 tablet (10 mg) by mouth 1 (one) time each day. Active DULoxetine (Cymbalta) [address] capsule Take by mouth 1 (one) time each day. 10/20/19 23 Active benzonatate (Tessalon) 100 MG capsule if needed. 07/18/19 24 Active clopidogrel (Plavix) 75 MG tablet 01/05/20 24 Active Ozempic, 2 MG/DOSE, 8 MG/3ML solution pen-injector Inject 2 mg every week by subcutaneous route for 28 days. 12/27/19 24 Active Continuous Glucose Sensor (Dexcom G7 Sensor) misc USE directed EVERY 10 DAYS 05/23/20 25 Active carvedilol (Coreg) 3.125 MG tablet Take 1 tablet by mouth 2 times a day with meals. Active famotidine (Pepcid) 20 MG tablet Take 1 tablet by mouth nightly. 03/25/20 25 Active Mounjaro 5 MG/0.5ML solution auto-injector solution pen-injector INJECT 5 MG SUBCUTANEOUSLY ONCE WEEKLY 03/25/20 25 Active promethazine (Phenergan) 25 MG tablet as needed. Active amLODIPine (Norvasc) 5 MG tablet Take 1 tablet by mouth daily. 05/21/20 25 Active tamsulosin (Flomax) 0.4 MG 24 hr capsule Take 1 capsule by mouth daily. 90 capsule 3 05/27/20 25 Active nystatin-triamci nolone (Mycolog II) cream Use to affected areas BID as needed. 15 g 1 05/27/20 25 Active tamsulosin (Flomax) 0.4 MG 24 hr capsule Take 1 capsule (0.4 mg) by mouth 1 (one) time each day. 025 Discontin ued(Reord er) nystatin-triamci nolone (Mycolog II) cream Use to affected areas BID as needed. 15 g 09/11/19 25 025 Discontin ued(Reord er) Active Problems Problem Noted Date Diagnosed Date Class III obesity with body mass index (BMI) of 40.0 or higher 01/26/2023 Resolved Problems Problem Noted Date Diagnosed Date Resolved Date Phimosis 11/04/2022 03/10/2025 Overview (11/04/2022): Added automatically from request for surgery [id number] Encounters Date Type Department Care Team Description 05/27/2025 1:50 PM EST [facility] Visit [facility] [address], [address] [place] [address] Belinda Styles, RESIDENTIAL ENERGY AUDITOR, DNP Phimosis (Primary Dx); Acquired buried penis 05/27/2025 Travel 05/14/2025 Telephone [facility] Nephrology, Bone & Mineral Metabolism [address] , [address] [place] [address] Kelley Goodman RN 05/14/2025 Orders Only [facility] Nephrology, Bone & Mineral Metabolism [address] , [address] [place] [address] Kelley Goodman RN Proteinuria, unspecified type (Primary Dx) from Last [...] Pulse 84 05/27/2025 2:05 PM EST Temperature 37 C (98.6 F) 05/21/2024 2:25 PM EST Respiratory Rate 16 05/27/2025 2:05 PM EST Oxygen Saturation 94% 05/21/2024 2:25 PM EST Inhaled Oxygen Concentration - - Weight 147 kg (323 lb) 05/27/2025 2:05 PM EST Height 177.8 cm (5' 10 ) 01/26/2024 10:10 AM EDT Body Mass Index 46.35 01/26/2024 10:10 AM EDT Plan of Treatment Upcoming Encounters Date Type Department Care Team (Late st Contact Info) Description 06/25/2025 2:00 PM EST Office Visit [facility] Metabolism [address], [address] [place] [address] Teresa Gil MD [address] [place] [address] 11/27/2025 1:50 PM EDT [facility] [address] [place] [address] Belinda Styles, RESIDENTIAL ENERGY AUDITOR, DNP [address] [place] [address] Health Maintenance Due Date Last Done Comments [facility]-Hepatitis C Screening 1954 [facility]-/Child/Adol SDOH Screenings 1954 [facility]- SDOH Screenings 1972 [facility]-Adult SDOH Screenings 1972 CT Colonography 1999 Colonoscopy 1999 FIT-DNA 1999 FIT 1999 FOBT 1999 Sigmoidoscopy 1999 [facility]-Colorectal Cancer Screening 1999 Lung Cancer Screening Shared Decision Making 2004 [facility]-RSV Vaccine: 60+ Years or (1 - Risk 50-74 years 1-dose series) 2004 [facility]-Abdominal Aortic Aneurysm (AAA) Screening 2019 [id number]-45 Vaccine ( season) 2025 02/17/2024, 04/19/2023, 04/21/2022, Additional history exists [facility]-Medicare Annual Wellness (AWV) 09/04/2025 09/04/2024 [facility]-Lung Cancer Screening 09/28/20252024, 02/21/2024, 01/25/2023 [facility]-DTaP,Tdap,and Td Vaccines (3 - Td or Tdap) 02/17/2026 02/18/2016, 12/02/2008, 02/27/2007, Additional history exists [facility]-Depression Screening 05/27/2026 05/27/2025 [facility]-Zoster Vaccines Completed 03/29/2019, 01/21/2019, 02/11/2015 [facility]-Hepatitis A Vaccines Aged Out 08/15/2019, 09/2018 No longer eligible based on patient's age to complete this topic [facility]-Pneumococcal Vaccine: 50+ Years Completed 08/18/2021, 08/02/2020, 06/29/2019, Additional history exists [facility]-Diabetes: Hemoglobin A1C Discontinued 09/04/2024, 08/29/2023, 10/26/2021, Additional history exists [facility]-Influenza Vaccine Completed 04/22/2025 , 05/28/2024, 04/19/2023, Additional history exists [facility]-Obesity Intervention Completed 025, 05/21/2024, 01/26/2024, Additional history exists HPV Vaccines (No Doses Required) Completed [facility]-HIB Vaccines Aged Out No longer e ligible based on patient's age to complete this topic [facility]-IPV Vaccines Aged Out No longer e ligible based on patient's age to complete this topic [facility]-Rotavirus Vaccines Aged Out No lo nger eligible based on patient's age to complete this topic Insurance MEDICARE Member Subscriber Plan / Payer (Ef fective 2019-Present) Name:Catarino Allen Member ID:[id number] Relation to Subscriber:Self Name:Catarino Allen Subscriber ID:[id number] Payer ID:MEDICARE Group ID:Not on file Type:Medicare [place] [facility] [place] [address] [address] [place] [address] ANTHEM Care Teams Grade Checker Relationship Specialty [place] [address] PCP - General 01/26/23 Fritz Leung MD [address] [address] Referring Physician 06/28/22
--- OUTSIDE RECORDS SUMMARY | 2025-06-17 09:12 | XMS_ITS | Encounter Summary ---
Author Organization [facility] Address [address] [place] [address] Care Team Providers Care Radiology Tech Name Role Phone Fritz Leung MD Unavailable [phone] Jose Thurman MD Primary Care Provider [phone] Encounter Details Date Type Department Care Team ([facility] Contact Info) Description 05/14/2025 Telephone [facility] Nephrology, Bone & Mineral Metabolism [address], [address] [place] [address] Kelley Goodman RN None None Social History Tobacco Use Types [...] Upcoming Encounters Date Type Department Care Team ([facility] Contact Info) Description 06/25/2025 2:00 PM EST Office Visit [facility]rology, Bone [facility] Mineral Metabolism [address], [address] [place] [address] Teresa Gil MD [address] [facility] [address] [place] [address] 11/27/2025 1:50 PM EDT [facility] [address] [place] [address] Belinda Styles, NETWORK LEAD, DNP [address] [place] [address] documented as of this encounter Visit Diagnoses Not on filedocumented in this encounter Additional Health Concerns Assessment Noted Time A fall risk assessment has been complete d for the patient 05/21/2024 2:34 PM EST A Body Mass Index follow-up plan has been documented for the patient 05/21/2024 3:49 PM EST documented as of this encounter Care Teams Radiology Tech Relationship Specialty [place] [id number] PCP - General 01/26/23 Fritz Leung MD [address] [facility] [address] [place] [address] Referring Physician 06/28/22 documented as of this encounter
--- OUTSIDE RECORDS SUMMARY | 2025-06-17 09:12 | XMS_ITS | Clinical Summary ---
Author Organization [facility] Address [address] [place] [address] Phone Care Team Providers Care Electronics Technology Instructor Name Role Phone Catarino Ryan MD Primary Care Provider [phone] Allergies Active Allergy Reactions Criticality Noted Date [...] Sensor (DEXCOM G6 SENSOR) Misc Device by [employer].(Non-Drug; Combo Route) route. Active ezetimibe (ZETIA) 10 [...] (01/29/2022): Added automatically from request for surgery [id number] Lower urinary tract symptoms due to benign prostatic hyperplasia 10/26/2021 Tear of left rotator cuff 09/28/2021 Overview (09/28/2021): Added automatically from request for surgery [id number] Chronic obstructive lung disease 06/30/2017 Chronic depression [...] Comments COPD (chronic obstructive pu lmonary disease) ([facility]) Hypertension Hyperlipidemia IN (myocardial infarction) ([facility]) age of 26 from being given wrong medication at hospital (Heparin) Edema BLE Diverticulosis Neuropathy Arthritis Diabetes mellitus ([facility]) type 2-d excom sensor Urinary incontinence Oxygen dependent pt uses 2-3L O2 most of the time as of 10/23/21 Sleep apnea USES OXYGEN 2-3L /NC CONT Asthma Bronchitis, chronic (HCC) Irritable bowel syndrome Neuromuscular disorder ([facility]) Depression Anxiety disorder Chronic pain Family History [...] this topic Medical Devices Implanted Type Area Solar Panel Technician Device Identifier Shelf Expiration Date Model / Serial / Lot Knee Right: Knee Lens Bilateral: Eye Bone Bank Bone For Fusion Neck [place] Sut Y-Knt Self-Pnch Ndl - [id number] Implanted:Qty : 1 on 12/01/2020 by Partha Kuo MD at [facility] Left: Shoulder CONMED:LINVATEC 07/22/2025 [id number] / / [id number] [place] Sut Y-Knt Self-Pnch Ndl - [id number] Implanted:Qty : 1 on 10/27/2021 by Partha Kuo MD at [facility] Left: Shoulder CONMED:LINVATEC 06/01/2026 [id number] / / [id number] Liner Tib Sz Gh/6-9 10mm Persn Lt Kn Art Ps Fx Bear Melina-E - [id number] Implanted:Qty : 1 on 02/02/2022 by Partha Kuo MD at [facility] Left: Knee VILMA:VILMA [id number] 02/02/2026 [id number] / / [id number] Cement Refobacin 1x40 Gm Hvisc Bn Gent Lf - [id number] Implanted:Qty : 1 on 02/02/2022 by Partha Kuo MD at [facility] Left: Knee VILMA:VILMA 12/18/2023 [id number] / / [id number] Patlr 35mm Blayne Persn Pe Melina-E Ps Kn - [id number] Implanted:Qty : 1 on 02/02/2022 by Partha Kuo MD at [facility] Left: Knee VILMA:VILMA [id number] 11/17/2028 [id number] / / [id number] Comp Fem Sz8 Std Persn Lt Kn Ps Blayne Cocr Por - [id number] Implanted:Qty : 1 on 02/02/2022 by Partha Kuo MD at [facility] Left: Knee VILMA:VILMA 07/02/2031 [id number] / / [id number] Baseplate Tib Sz-G Stm Lt Kn Blayne Persn Sugar Tiv Norman 5d - [id number] Implanted:Qty : 1 on 02/02/2022 by Partha Kuo MD at [facility] Left: Knee VILMA:VILMA [id number] 08/17/2031 [id number] / / [id number] Procedures Procedure Name Priority Date/Time Associated Diagnosis [...] mL/min/1.7 3 m2 09/24/2021 7:58 PM EDT [facility] Comment:Estimated GFR was ca lculated using the CKD-EPIcr (2020) equation refit without race. The equation is recommended by the National Kidney Foundation - [employer] Society of Nephrology Task Force. Blood VENOUS BLOOD / Unknown Venipuncture / Unknown 09/24/2021 5:30 PM EDT 09/24/2021 5:30 PM EDT us Miroslava Campo MD CHEMISTRY ORDERABLES Final R esult [facility] [employer] [address] [facility] [place] [address] [facility] [address] [place] [address] from Last 3 Months or Most Recently Relevant to Health Maintenance Insurance MEDICARE [place] PART A AND B [place]ICARE [place] PART A AND B [facility] Advance Directives For more information, please contact: [phone] Documents on File Type Date Recorded Patient Ship Boat Or Barge Mate Expl anation ADVANCE DIRECTIVE 10/27/2021 9:38 AM ADVANCE DIRECTIVE 12/01/2020 8:44 AM * Full Code (Latest Code Status on File) Date Activated Date Inactivated Comments 02/02/2022 12:31 PM 02/04/2022 7:00 PM Care Teams Electronics Technology Instructor Relationship Specialty Start Date End Date Catarino Ryan MD [address] [place] [address] PCP - General Family Medicine 10/26/21
--- OUTSIDE RECORDS SUMMARY | 2025-06-17 09:12 | XMS_ITS | Encounter Summary ---
Author Organization [facility] Address [address] [place] [address] Care Team Providers Care Community Liaison Officer Name Role Phone Fritz Leung MD Unavailable [phone] Jose Thurman MD Primary Care Provider [phone] Encounter Details Date Type Department Care Team ([facility] Contact Info) Description 05/14/2025 Orders Only [facility] Nephrology, Bone & Mineral Metabolism [address] , [address] [place] [address] Kelley Goodman RN None None Proteinuria, unspecified type (Primary Dx) [...] Upcoming Encounters Date Type Department Care Team ([facility] Contact Info) Description 06/25/2025 2:00 PM EST Office Visit Professional [facility] Nephrology, Bone & Mineral Metabolism [address], [address] [place] [address] Teresa Gil MD [address] [facility] [address] [place] [address] 11/27/2025 1:50 PM EDT Office Visit [facility] [address] [place] [address] Belinda Styles, RETREAD TECHNICIAN, DNP [address] [place] [address] Scheduled Orders Name Type Priority [...] documented as of this encounter Care Teams Community Liaison Officer Relationship Specialty [place] [id number] PCP - General 01/26/23 Fritz Leung MD [address] [facility] [address] [place] [address] Referring Physician 06/28/22 documented as of this encounter
--- OUTSIDE RECORDS SUMMARY | 2025-06-17 09:12 | XMS_ITS | Encounter Summary ---
Author Organization [facility] Address [address] [place] [address] Care Team Providers Care Meat Stringer Name Role Phone Fritz Leung MD Unavailable [phone] Jose Thurman MD Primary Care Provider [phone] Encounter Details Date Type Department Care Team (Latest Contact Info) Description 05/27/2025 Travel Social History Tobacco Use Types Packs/Day Years [...] on file documented as of this encounter Functional Status * Communicable Disease Screening Question Answer Date of Assessment Author Have you been in contact wit h someone who was sick? No / Unsure 05/27/2025 1:52 PM Ileana Acosta Do you have any of the following new or worsening symptoms? None of these 05/27/2025 1:52 PM Ileana Acosta * Travel Screening Question Answer Date of Assessment Author Have you traveled internatio reta or domestically in the last month? No 05/27/2025 1:52 PM Ileana Casarez documented as of this encounter Mental Status * Communicable Disease Screening Question Answer Entry Date Author Have you been in contact wit h someone who was sick? No / Unsure 05/27/2025 1:52 PM EST KevinIleana Sweetie Do you have any of the following new or worsening symptoms? None of these 05/27/2025 1:52 PM EST KevinRainry Perez * Travel Screening Question Answer Entry Date Author Have you traveled internatio reta or domestically in the last month? No 05/27/2025 1:52 PM EST Cassie perez Ileana Perez documented in this encounter Plan of Treatment Upcoming Encounters Date Type Department Care Team (Late st Contact Info) Description 06/25/2025 2:00 PM EST Office Visit [facility] [employer] [facility] Nephrology, Bone & Mineral Metabolism [address], [address] [place] [address] Teresa Gil MD [address] [place] [address] 11/27/2025 1:50 PM EDT Office Visit [facility] [address] [place] [address] Belinda Styles, NAVAL SURFACE FIRE SUPPORT PLANNER, DNP [address] [place] [address] documented as of this encounter Visit Diagnoses Not on filedocumented in this encounter Additional Health Concerns Assessment Noted Time A fall risk assessment has been complete d for the patient 05/27/2025 2:01 PM EST A Body Mass Index follow-up plan has been documented for the patient 05/27/2025 2:32 PM EST documented as of this encounter Care Teams Meat Stringer Relationship Specialty [place] [id number] PCP - General 01/26/23 Fritz Leung MD [address] [facility] [address] [place] [address] Referring Physician 06/28/22 documented as of this encounter
== END 2025-06-15 23:59 | disposition home or self-care (01) ==
LOC: LAB.DROPOF 06-17 09:03
PROVIDERS: PCP Internal Medicine; Visit Provider Student in an Organized Health Care Education/Training Program
DX: R50.9 Fever, unspecified (principal)
CPT/HCPCS: 87636